=== PATIENT | female | born 1960 | race Caucasian/White ===

== ENCOUNTER 2016-10-26 10:19 | Emergency (ER) | payer MEDICARE, MEDICAID ==
[~2016-10-26 10:19] MED LIST: /LAMO10TA OR; /LOR25TA OR; /ONDA4TA SL; /PANT40TA OR; ACET65TA OR; ALLE25CA OR; AMIT25TA PO; AMLO10TA PO; AMLO10TA2 PO; AMLO25TA PO; AMOX500T2 PO; ATEN100T; AUGM500T34 PO; AUGM875T27 PO; BACL10TA2 PO; BENA25CA2 PO; BISA5TAB7 PO; CARB20TA PO; CELE20TA; CEPH500T PO; CIPR25SS; CIPR25SS OR; CLON0.5T PO; CLOT1CRE71 TOP; COZA25TA8 OR; DARV100T; DEPA500T2 PO; FLAG500T OR; FLON0.054; FLON1SPR; FLUP5TA PO; FURO20TA2 PO; GABA-283 PO; GABA300C3 PO; GABA600T PO; GLUC500T OR; HYDR-4274 PO; Hyzaar; INDO25CA PO; INDO25SU PO; INDO50CA PO; INVE234I IM; KEFL500C7 PO; KLON0.5T; KLON1TAB; LASI20TA OR; LASI20TA PO; LEVA750T PO; LIDO1OIN2 TOP; LISI-538 PO; LITH300C PO; LITH300T2; LITH300T2 PO; LITH600C; LITHOBID PO; MAALSUS18 PO; METF500T PO; METO100T PO; MILKSUS PO; NAPR500T2 PO; NEUR300C PO; NEUR600T PO; NICO14PA TD; NICO2GUM62 PO; NYST50SS SS; OCEA0.654; OLAN15TA PO; OLAN5TAB PO; OLAN7.5T PO; PERC5TAB6 PO; PRED20TA PO; PRIN5TAB PO; PROLIXIN PO; QUET30XR; QUET5TAB PO; REME15TA PO; ROBA500T; ROBA500T PO; ROBA750T; ROBA750T4 PO; SERO200T; SERO50TA PO; SERT-138 PO; TENO100T PO; TIZA4CAP3 PO; TOPA100T8 PO; TOPA50TA7 PO; TRAM100T; TRAM50TA2; TRAZ100T4 PO; TRAZ50TA; TRAZ50TA4 PO; TYLE325T5 PO; Trazadone; VALI2TAB PO; VALI5TAB OR; VIST25CA PO; ZANA4CAP OR; ZANA6CAP PO; ZOLO100T PO; [UNRECOGNIZED DRUG - CODE] PO; bengay cream TOP; hyzaar; prolixin PO
[2016-10-26] MEDS ORDERED: MORPHINE 4 MG/ML 1ML SYRINGE As Ordered ONE (12:24)
[2016-10-26] MEDS ORDERED: diphenhydrAMINE INJ 50MG/ML VIAL (J1200) As Ordered ONE (12:25)
[2016-10-26] MEDS ORDERED: PROMETHAZINE INJ 25 MG/ML VIAL (J2550) As Ordered ONE (12:25)
[2016-10-26] MEDS ORDERED: ASPIRIN 81 MG CHEW TABLET As Ordered ONE (12:25)
--- NOTE | 2016-10-26 12:38 | REP ---
CT Head without contrast HISTORY: Headache COMPARISON: 05/23/2016 There is no intraparenchymal hemorrhage, acute infarct, mass or midline shift. The ventricular system and cortical sulci are dilated consistent with minimal volume loss. There is no extra cerebral collection. There is no fracture. The visualized sinuses are clear. IMPRESSION: Minimal volume loss. Signed by Jaiden Lawson MD 10/26/2016 12:30 P
[2016-10-26 13:16] LABS: BASO % 0.3 % (0.0-1.0); EOS # 0.2 K/mm3 (0.0-0.50); EOS % 2.8 % (0.0-3.0); LARGE UNSTAINED CELL # 0.1 K/mm3 (0.0-0.4); LARGE UNSTAINED CELL % 1.5 % (0.0-4.0); LYMPH # 2.4 K/mm3 (1.5-4.5); LYMPH % 31.9 % (24.0-44.0); MEAN CORPUSCULAR HEMOGLOBIN 29.5 pg (27.0-33.0); MEAN CORPUSCULAR HGB CONC 32.9 g/dl (32.0-36.5); MEAN CORPUSCULAR VOLUME 89.6 fl (80.0-96.0); MONO # 0.4 K/mm3 (0.0-0.8); MONO % 5.5 % (0.0-5.0); NEUTROPHILS # 4.2 K/mm3 (1.8-7.7); PLATELET COUNT, AUTOMATED 200 k/mm3 (150-450); WHITE BLOOD COUNT 7.3 K/mm3 (4.0-10.0)
[2016-10-26 13:49] LABS: ANION GAP 13 MEQ/L (8-16); BLOOD UREA NITROGEN 13 MG/DL (7-18); CARBON DIOXIDE LEVEL 24 MEQ/L (21-32); CHLORIDE LEVEL 103 MEQ/L (98-107); CREATININE FOR GFR 0.93 MG/DL (0.55-1.02); GLOMERULAR FILTRATION RATE > 60.0 (>51); GLUCOSE, FASTING 109 MG/DL (70-105); POTASSIUM SERUM 4.2 MEQ/L (3.5-5.1); SODIUM LEVEL 140 MEQ/L (136-145)
[2016-10-26] MEDS ORDERED: KETOROLAC 30 MG/ML VIAL (J1885) As Ordered ONE (16:03)
--- NOTE | 2016-10-26 17:13 | EDDOCDS ---
Physician Documentation [facility] Name: Suzi Rodriguez Age: 56 yrs Sex: Female : 1960 Arrival Date: 10/26/2016 Time: 10:19 Bed TR7 Private MD: Sigifredo Rowley MD Disposition: 10/26/16 16:59 Discharged to Home/Self Care. Impression: Other chest pain, Headache. - Condition is Stable. - Discharge Instructions: Nonspecific Chest Pain, General Headache Without Cause. - Medication Reconciliation, Local Pharmacy Hours form. - Follow up: Sigifredo Rowley; When: Tomorrow; Reason: Continuance of care. - Problem is new. - Symptoms have improved. Historical: - Allergies: TETANUS TOXOID; - Home Meds: 1. metformin 1,000 mg oral tab 1 tab 2 times per day 2. gabapentin 600 mg oral tab 1 tab twice a day last filled in January 3. fluconazole 150 mg Oral tab 1 tab daily 4. benztropine 1 mg oral tab 2 times per day 5. tizanidine 4 mg oral tab 1 tab three times a day 6. baclofen 10 mg Oral tab 1 tab twice a day as needed 7. ammonium lactate cream apply to feet daily 8. cyclobenzaprine 10 mg Oral tab 1 tab 3 times per day 9. divalproex 500 mg oral TbEC 1 tab 3 times per day 10. lisinopril 20 mg Oral tab 1 tab once daily 11. Chantix Oral as directed 12. risperidone 2 mg oral tab 1 tab 2 times per day 13. chlorthalidone 12.5 mg daily Oral tab .5 tab once daily 14. Spironolactone 12.5 mg daily Oral - PMHx: Bipolar disorder; Chronic Back pain; Depression; Bronchitis; Fibromyalgia; Hypertension; Trigeminal Neuralgia; - PSHx: benign tumor removed left kidney; triple fusion with a titanium merary to neck in 2000; - Social history: Smoking status: Patient uses tobacco products, current every day smoker. No barriers to communication noted, The patient speaks fluent Lao, Speaks appropriately for age. - Family history: Not pertinent. - : Unable to assess if pt is on anticoagulants. Unable to Verify Home Med List with the patient / caregiver. Home medication list is obtained from patients' pharmacy. - Exposure Risk Screening:: None identified. Vital Signs: 10/26 10:20 BP 183 / 78; Pulse 95; Resp 18; Temp 98.7(O); Pulse Ox 97% ; Weight 102.51 kg / 226 lbs ct3 (R); Height 5 ft. 5 in. (165.10 cm) (R); Pain 10/10; 11:33 BP 177 / 92; ms18 13:04 BP 142 / 91; Pulse 90; Resp 18; Pulse Ox 95% ; ms18 13:16 BP 137 / 85 (auto/); mk4 13:23 Pulse 90 MON; Pulse Ox 91% ; mk4 13:30 Pulse 92 MON; Pulse Ox 94% ; ms18 13:31 BP 144 / 86 (auto/); ms18 13:31 Pulse 88 MON; Pulse Ox 93% ; ms18 13:32 Pain 4/10; ms18 13:45 Pulse 92 MON; Pulse Ox 92% ; ms18 13:46 BP 139 / 81 (auto/); ms18 13:56 Pulse 94 MON; Pulse Ox 93% ; ms18 14:01 BP 135 / 79 (auto/); ms18 14:16 BP 133 / 74 (auto/); ms18 14:16 Pulse 92 MON; Pulse Ox 93% ; ms18 14:31 BP 136 / 76 (auto/); ms18 14:33 Pulse 102 MON; Pulse Ox 94% ; ms18 14:46 Pulse 88 MON; Pulse Ox 93% ; ms18 14:46 BP 127 / 66 (auto/); mk4 14:47 Pulse 92 MON; Pulse Ox 94% ; mk4 14:48 Pulse 92 MON; Pulse Ox 94% ; ms18 15:00 Pulse 90 MON; Pulse Ox 94% ; ms18 15:01 BP 126 / 62 (auto/); ms18 15:07 Pulse 92 MON; Pulse Ox 94% ; mk4 15:16 BP 146 / 79 (auto/); ms18 15:31 BP 147 / 78 (auto/); mk4 17:09 BP 132 / 72; Pulse 92; Resp 20; Temp 97.2(O); Pulse Ox 94% on R/A; mk4 10:20 Body Mass Index 37.61 (102.51 kg, 165.10 cm) ct3 MDM: 10:32 ECG WITH READING ER PHYS+CARDIAG ordered. EDMS 12:17 IV Saline Lock ordered. fg 12:17 morphine 4 mg IVP once ordered. fg 12:17 diphenhydrAMINE 25 mg IVP once ordered. fg 12:17 Promethazine 12.5 mg IVP once; dilute and administer 30-60 minutes ordered. fg 12:18 CT Head Without Contrast Ordered. EDMS 12:21 Aspirin Chewable Tablet 324 mg PO once ordered. fg 12:21 Repeat EKG (put time details section) ordered. fg 12:21 Basic Metabolic Profile Ordered. EDMS 12:22 CBC with Diff Ordered. EDMS 12:22 Cardiac Injury Profile Ordered. EDMS 12:22 Troponin Ordered. EDMS 12:33 Repeat EKG (put time details section) complete. lbd 12:34 ECG WITH READING ER PHYS ordered. EDMS 13:26 Troponin: 1530 Ordered. EDMS 14:01 Financial registration complete. lg 15:32 [facility] [place] Payment Agreement was scanned into [employer] and attached to record. lg 15:49 ketorolac 30 mg IVP once ordered. fg Administered Medications: 13:03 Drug: morphine 4 mg [morphine 4 mg/mL intravenous cartridge (1 mL)] Route: IVP; Site: ms18 right hand; 13:32 Follow up: Pain 4/10 Adult; Response: No Adverse Reaction; Pain is decreased ms18 13:03 Drug: diphenhydrAMINE 25 mg [diphenhydramine 50 mg/mL injection solution (0.5 mL)] ms18 Route: IVP; Site: right hand; 13:32 Follow up: Response: No Adverse Reaction; Pain is decreased ms18 13:03 Drug: Promethazine 12.5 mg [promethazine 25 mg/mL injection solution (0.5 mL)] Route: ms18 IVP; Site: right hand; 13:32 Follow up: Response: No Adverse Reaction ms18 13:03 Drug: Aspirin 324 mg [aspirin 81 mg chewable tablet (4 tabs)] Route: PO; ms18 13:32 Follow up: Response: No Adverse Reaction ms18 16:10 Drug: ketorolac 30 mg [ketorolac 30 mg/mL (1 mL) injection solution (1 mL)] Route: IVP; ms18 Site: right hand; Signatures: Dispatcher [email or web address] EDMS Nidia Fuentes RN RN kcs Daly, Linda, Store Merchandiser Unit lbd Beronica Rocha RN RN srm Ganter, LoriLee, Reg Reg lg Carmita Stern RN RN mk4 Deepti Dong RN RN ms18 Bibi Bob MD MD fg The chart was reviewed and I authenticate all verbal orders and agree with the evaluation and treatment provided.Corrections: (The following items were deleted from the chart) 12:23 12:22 TROPONIN+LAB ordered. EDMS EDMS Attachments: 15:32 [facility] [place] Payment Agreement lg MTDD
--- NOTE | 2016-10-26 17:13 | EDDOCDS ---
Nurse's Notes [facility] Name: Suzi Rodriguez Age: 56 yrs Sex: Female : 1960 Arrival Date: 10/26/2016 Time: 10:19 Bed TR7 Private MD: Sigifredo Rowley MD Diagnosis: Other chest pain;Headache Presentation: 10/26 10:23 Presenting complaint: Patient states: severe head and neck pain. some chest pain. head srm and neck pain on and off for weeks. past week worsened. dx with decompression of the head. chest pain mainly at night for past couple of months. today is the only day its been during the day. pain under left breast does not radiate. saw training analyst last week for chest pain. had abnormal EKG. Presenting complaint: Patient states: head feels constricted. This patient has no additional risk factors. Adult Sepsis Screening: The patient does not have new or worsening altered mentation. Patient's respiratory rate is less than 22. Systolic blood pressure is greater than 100. Patient has a qSOFA score of 0- Negative Sepsis Screen. Suicide/Homicide risk assessment- the patient denies having any suicidal and/or homicidal ideations and does not present with any other emotional, behavioral or mental health complaints. Status: Patient is not a ancillary services manager therapy or dependent. Transition of care: patient was not received from another setting of care. 10:23 Acuity: WILFRED Level 3 [facility] 10:23 Method Of Arrival: Walkin/Carried/Asstd srm 10:28 Presenting complaint: Patient states: has been [facility]. [facility] Triage Assessment: 10:28 Headache History: This headache is like all previous headaches. General: Appears in no srm apparent distress, Behavior is appropriate for age, cooperative, flat. Pain: Pain currently is 10 out of 10 on a pain scale. Pain began weeks Also complains of no other associated symptoms. HIV screening NA for this visit Offered previously. Neurological: Level of Consciousness is awake, alert, Oriented to person, place, time. Historical: - Allergies: TETANUS TOXOID; - Home Meds: 1. metformin 1,000 mg oral tab 1 tab 2 times per day 2. gabapentin 600 mg oral tab 1 tab twice a day last filled in January 3. fluconazole 150 mg Oral tab 1 tab daily 4. benztropine 1 mg oral tab 2 times per day 5. tizanidine 4 mg oral tab 1 tab three times a day 6. baclofen 10 mg Oral tab 1 tab twice a day as needed 7. ammonium lactate cream apply to feet daily 8. cyclobenzaprine 10 mg Oral tab 1 tab 3 times per day 9. divalproex 500 mg oral TbEC 1 tab 3 times per day 10. lisinopril 20 mg Oral tab 1 tab once daily 11. Chantix Oral as directed 12. risperidone 2 mg oral tab 1 tab 2 times per day 13. chlorthalidone 12.5 mg daily Oral tab .5 tab once daily 14. Spironolactone 12.5 mg daily Oral - PMHx: Bipolar disorder; Chronic Back pain; Depression; Bronchitis; Fibromyalgia; Hypertension; Trigeminal Neuralgia; - PSHx: benign tumor removed left kidney; triple fusion with a titanium merary to neck in 2000; - Social history: Smoking status: Patient uses tobacco products, current every day smoker. No barriers to communication noted, The patient speaks fluent Japanese, Speaks appropriately for age. - Family history: Not pertinent. - : Unable to assess if pt is on anticoagulants. Unable to Verify Home Med List with the patient / caregiver. Home medication list is obtained from patients' pharmacy. - Exposure Risk Screening:: None identified. Screenin:33 Screening information is obtained from the patient. Fall risk: No risks identified. ms18 Assistance ADL's: requires no assistance with activities of daily living. Abuse/DV Screen: The patient / caregiver reports he/she is: not in a situation that causes fear, pain or injury. Nutritional screening: No deficits noted. Advance Directives: There is no living will. home support is adequate. Assessment: 11:33 General: Appears in no apparent distress, uncomfortable, Behavior is cooperative, flat. ms18 Pain: Location: jaw and head. Neurological: Level of Consciousness is awake, alert, obeys commands, Oriented to person, place, time, Moves all extremities. Gait is steady, Speech is normal, Facial symmetry appears normal. Respiratory: Airway is patent Respiratory effort is even, unlabored. Derm: Skin is pink, warm & dry. 12:57 General: Appears in no apparent distress, uncomfortable, Behavior is appropriate for ms18 age, cooperative. Pain: Pain currently is 8 out of 10 on a pain scale. Pain: Also complains of photophobia. Neurological: Level of Consciousness is awake, alert, obeys commands, Oriented to person, place, time. Respiratory: No deficits noted. Derm: Skin is pink, warm & dry. normal. 13:30 General: Pt resting at this time. Will continue to monitor pt. Pt will have repeat ms18 bloodwork done at 1530. Pt aware of this. Will continue to monitor pt. 14:38 General: Appears in no apparent distress, comfortable, to be sleeping. Pt in no acute ms18 distress. VSS. Will continue to monitor pt. Respiratory: No deficits noted. Derm: Skin is pink, warm & dry. 15:38 General: Appears in no apparent distress, comfortable, Behavior is cooperative. mk4 Respiratory: Airway is patent Respiratory effort is even, unlabored, Respiratory pattern is regular. 17:09 Reassessment: Patient denies pain at this time. Patient states feeling better. Patient mk4 states symptoms have improved. Neurological: Level of Consciousness is awake, alert. Vital Signs: 10:20 BP 183 / 78; Pulse 95; Resp 18; Temp 98.7(O); Pulse Ox 97% ; Weight 102.51 kg (R); ct3 Height 5 ft. 5 in. (165.10 cm) (R); Pain 10/10; 11:33 BP 177 / 92; ms18 13:04 BP 142 / 91; Pulse 90; Resp 18; Pulse Ox 95% ; ms18 13:16 BP 137 / 85 (auto/); mk4 13:23 Pulse 90 MON; Pulse Ox 91% ; mk4 13:30 Pulse 92 MON; Pulse Ox 94% ; ms18 13:31 BP 144 / 86 (auto/); ms18 13:31 Pulse 88 MON; Pulse Ox 93% ; ms18 13:32 Pain 4/10; ms18 13:45 Pulse 92 MON; Pulse Ox 92% ; ms18 13:46 BP 139 / 81 (auto/); ms18 13:56 Pulse 94 MON; Pulse Ox 93% ; ms18 14:01 BP 135 / 79 (auto/); ms18 14:16 BP 133 / 74 (auto/); ms18 14:16 Pulse 92 MON; Pulse Ox 93% ; ms18 14:31 BP 136 / 76 (auto/); ms18 14:33 Pulse 102 MON; Pulse Ox 94% ; ms18 14:46 Pulse 88 MON; Pulse Ox 93% ; ms18 14:46 BP 127 / 66 (auto/); mk4 14:47 Pulse 92 MON; Pulse Ox 94% ; mk4 14:48 Pulse 92 MON; Pulse Ox 94% ; ms18 15:00 Pulse 90 MON; Pulse Ox 94% ; ms18 15:01 BP 126 / 62 (auto/); ms18 15:07 Pulse 92 MON; Pulse Ox 94% ; mk4 15:16 BP 146 / 79 (auto/); ms18 15:31 BP 147 / 78 (auto/); mk4 17:09 BP 132 / 72; Pulse 92; Resp 20; Temp 97.2(O); Pulse Ox 94% on R/A; mk4 10:20 Body Mass Index 37.61 (102.51 kg, 165.10 cm) ct3 Vitals: 10:20 Log In Time: October 26, 2016 at 10:17. ct3 ED Course: 10:20 Patient visited by Barbara English PCA. ct3 10:20 Sigifredo Rowley is Private Physician. ct3 10:20 Patient moved to Waiting ct3 10:22 Patient moved to Pre RCE ct3 10:27 Triage Initiated srm 10:29 Patient moved to 15 srm 10:45 EKG done. (by ED staff). Reviewed by Ezekiel Pino MD. nb2 10:46 Patient visited by Sarah Friedman. nb2 11:30 Deepti Dong,RN is Primary Nurse. ms18 11:33 Patient visited by Deepti Dong RN. ms18 11:33 The patient / caregiver is instructed regarding the plan of care and ED course. Patient ms18 has correct armband on for positive identification. Placed in gown. Bed in low position. Call light in reach. Property :Personal belongings accompany Pt. 12:07 Bibi Bob MD is Attending Physician. fg 12:08 Patient visited by Bibi Bob MD. fg 13:02 Patient visited by Deepti Dong RN. ms18 13:02 Basic Metabolic Profile Sent. ms18 13:10 CBC with Diff Sent. ms18 13:10 Cardiac Injury Profile Sent. ms18 13:10 Troponin Sent. ms18 13:12 CT Head Without Contrast Returned. EDMS 13:31 Patient visited by Deepti Dong,HANNAH. ms18 14:01 Patient visited by Deepti Dong RN. ms18 14:36 Patient visited by Deepti Dong RN. ms18 15:21 Patient visited by Deepti Dong RN. ms18 15:21 Patient visited by Deepti Dong RN. ms18 15:31 Patient name changed from Suzi\S\Maris\S\January\S\ to Suzi\S\M\S\January. EDMS 15:32 [facility] [place] Agreement was scanned into [address] and attached to record. lg 15:43 Patient visited by Deepti Dong RN. ms18 15:43 Troponin: 1530 Sent. ms18 16:10 Patient visited by Deepti Dong RN. ms18 16:58 Patient visited by Carmita Stern RN. mk4 16:59 Sigifredo Rolwey is Referral Physician. fg 17:08 Patient moved to [place] [id number] Administered Medications: 13:03 Drug: morphine 4 mg [morphine 4 mg/mL intravenous cartridge (1 mL)] Route: IVP; Site: ms18 right hand; 13:32 Follow up: Pain 4/10 Adult; Response: No Adverse Reaction; Pain is decreased ms18 13:03 Drug: diphenhydrAMINE 25 mg [diphenhydramine 50 mg/mL injection solution (0.5 mL)] ms18 Route: IVP; Site: right hand; 13:32 Follow up: Response: No Adverse Reaction; Pain is decreased ms18 13:03 Drug: Promethazine 12.5 mg [promethazine 25 mg/mL injection solution (0.5 mL)] Route: ms18 IVP; Site: right hand; 13:32 Follow up: Response: No Adverse Reaction ms18 13:03 Drug: Aspirin 324 mg [aspirin 81 mg chewable tablet (4 tabs)] Route: PO; ms18 13:32 Follow up: Response: No Adverse Reaction ms18 16:10 Drug: ketorolac 30 mg [ketorolac 30 mg/mL (1 mL) injection solution (1 mL)] Route: IVP; ms18 Site: right hand; Order Results: Lab Order: Basic Metabolic Profile; SPEC'M 10/26/16 13:05 Test: GLUCOSE, FASTING; Value: 109; Range: 70-105; Abnormal: Above high normal; Units: MG/DL; Status: F Test: BLOOD UREA NITROGEN; Value: 13; Range: 7-18; Units: MG/DL; Status: F Test: CREATININE FOR GFR; Value: 0.93; Range: 0.55-1.02; Units: MG/DL; Status: F Test: GLOMERULAR FILTRATION RATE; Value: > 60.0; Range: >51; Status: F Test: SODIUM LEVEL; Value: 140; Range: 136-145; Units: MEQ/L; Status: F Test: POTASSIUM SERUM; Value: 4.2; Range: 3.5-5.1; Units: MEQ/L; Status: F Test: CHLORIDE LEVEL; Value: 103; Range: 98-107; Units: MEQ/L; Status: F Test: CARBON DIOXIDE LEVEL; Value: 24; Range: 21-32; Units: MEQ/L; Status: F Test: ANION GAP; Value: 13; Range: 8-16; Units: MEQ/L; Status: F Test: CALCIUM LEVEL; Value: 10.0; Range: 8.5-10.1; Units: MG/DL; Status: F Test Note: ; Units are mL/min/1.73 m2 Chronic Kidney Disease Staging per NKF: Stage I & II GFR >=60 Normal to Mildly Decreased Stage III GFR 30-59 Moderately Decreased Stage IV GFR 15-29 Severely Decreased Stage V GFR <15 Very Little GFR Left ESRD GFR <15 on [employer] Lab Order: CBC with Diff; SPEC'M 10/26/16 13:05 Test: WHITE BLOOD COUNT; Value: 7.3; Range: 4.0-10.0; Units: K/mm3; Status: F Test: RED BLOOD COUNT; Value: 4.67; Range: 4.00-5.40; Units: M/mm3; Status: F Test: HEMOGLOBIN; Value: 13.8; Range: 12.0-16.0; Units: g/dl; Status: F Test: HEMATOCRIT; Value: 41.8; Range: 36.0-47.0; Units: %; Status: F Test: MEAN CORPUSCULAR VOLUME; Value: 89.6; Range: 80.0-96.0; Units: fl; Status: F Test: MEAN CORPUSCULAR HEMOGLOBIN; Value: 29.5; Range: 27.0-33.0; Units: pg; Status: F Test: MEAN CORPUSCULAR HGB CONC; Value: 32.9; Range: 32.0-36.5; Units: g/dl; Status: F Test: RED CELL DISTRIBUTION WIDTH; Value: 14.0; Range: 11.5-14.5; Units: %; Status: F Test: PLATELET COUNT, AUTOMATED; Value: 200; Range: 150-450; Units: k/mm3; Status: F Test: NEUTROPHILS %; Value: 58.0; Range: 36.0-66.0; Units: %; Status: F Test: LYMPH %; Value: 31.9; Range: 24.0-44.0; Units: %; Status: F Test: MONO %; Value: 5.5; Range: 0.0-5.0; Abnormal: Above high normal; Units: %; Status: F Test: EOS %; Value: 2.8; Range: 0.0-3.0; Units: %; Status: F Test: BASO %; Value: 0.3; Range: 0.0-1.0; Units: %; Status: F Test: LARGE UNSTAINED CELL %; Value: 1.5; Range: 0.0-4.0; Units: %; Status: F Test: NEUTROPHILS #; Value: 4.2; Range: 1.8-7.7; Units: K/mm3; Status: F Test: LYMPH #; Value: 2.4; Range: 1.5-4.5; Units: K/mm3; Status: F Test: MONO #; Value: 0.4; Range: 0.0-0.8; Units: K/mm3; Status: F Test: EOS #; Value: 0.2; Range: 0.0-0.50; Units: K/mm3; Status: F Test: BASO #; Value: 0.0; Range: 0.0-0.2; Units: K/mm3; Status: F Test: LARGE UNSTAINED CELL #; Value: 0.1; Range: 0.0-0.4; Units: K/mm3; Status: F Lab Order: Cardiac Injury Profile; SPEC'M 10/26/16 13:05 Test: CPK CREATINE PHOSPHOKINASE; Value: 74; Range: 26-192; Units: U/L; Status: F Test: CK-MB VALUE MASS; Value: 1.4; Range: 0.0-3.6; Units: NG/ML; Status: F Test: MB/CK RELATIVE INDEX; Value: 1.89; Range: < OR =4; Status: F Test Note: ; DIAGNOSIS CRITERIA MMB ng/ml Relative Index (RI) NON-AMI < or = 5 N/A [place] > 5 < or = 4 AMI > 5 > 4 Lab Order: Troponin; SPEC'M 10/26/16 13:05 Test: TROPONIN I; Value: < 0.02; Range: < 0.10; Units: NG/ML; Status: F Test Note: ; Troponin I Reference Interval for [employer] [place] LOCI: 99th Percentile= 0.00-0.045 ng/ml Risk Stratification: <= 0.10 ng/ml Decreased Risk for Adverse Clinical Events. 0.10-1.50 ng/ml Increased Risk for Adverse Clinical Events. Evaluation of additional criterion and/or repeat testing in 2-6 hours is suggested to rule out myocardial damage. >= 1.50 ng/ml Indicative of Myocardial Injury. Lab Order: Troponin: 1530; SPEC'M 10/26/16 15:41 Test: TROPONIN I; Value: < 0.02; Range: < 0.10; Units: NG/ML; Status: F Test Note: ; Troponin I Reference Interval for [employer] LOCI: 99th Percentile= 0.00-0.045 ng/ml Risk Stratification: <= 0.10 ng/ml Decreased Risk for Adverse Clinical Events. 0.10-1.50 ng/ml Increased Risk for Adverse Clinical Events. Evaluation of additional criterion and/or repeat testing in 2-6 hours is suggested to rule out myocardial damage. >= 1.50 ng/ml Indicative of Myocardial Injury. Radiology Order: CT Head Without Contrast Test: CT Head Without Contrast REASON FOR EXAMINATION: headache; CT Head without contrast; ; HISTORY: Headache; ; COMPARISON: 05/23/2016; ; There is no intraparenchymal hemorrhage, acute infarct, mass or midline shift.; The ventricular system and cortical sulci are dilated consistent with minimal; volume loss. There is no extra cerebral collection. There is no fracture. The; visualized sinuses are clear.; ; IMPRESSION: Minimal volume loss.; ; ; ; ; Signed by; Jaiden Lawson MD 10/26/2016 12:30 P; Outcome: 16:59 Discharge ordered by Provider. fg 17:12 Patient left the ED. mk4 Signatures: Dispatcher [employer] Nidia Hayes, RN RN Beronica Gracia RN RN [facility] Ghassan Hobson, Reg Reg lg English, Barbara, MANNEQUIN SANDER AND FINISHER [employer] SANDER [employer] FINISHER ct3 Carmita Stern RN RN mkDeepti Sanders RN RN ms18 Bibi Bob MD MD fg Baart, Nicole nb MTDD
--- NOTE | 2016-10-27 08:08 | ECGEPIP ---
Stationary ECG Study [facility] - ED Test Date: 2016-10-26 Pat Name: ANISH OHARA Department: Room: - Gender: F Finance Associate: cadence : 1960 Requested By: Ezekiel Stiles Order Number: [id number] Reading MD: Ezekiel Pino Measurements Intervals [place] Rate: 86 P: 32 AL: 203 QRS: -50 QRSD: 100 T: 47 QT: 369 QTc: 443 Interpretive Statements SINUS RHYTHM POSSIBLE LEFT ATRIAL ENLARGEMENT POSSIBLE ANTERIOR MYOCARDIAL INFARCTION, OF INDETERMINATE AGE PROBABLE INFERIOR MYOCARDIAL INFARCTION, OF INDETERMINATE AGE SIMILAR TO 02/24/16 Electronically Signed On 10-27-2016 8:08:24 EST by Ezekiel Pino
--- NOTE | 2016-10-27 08:44 | ECGEPIP ---
Stationary ECG Study [facility] - ED Test Date: 2016-10-26 Pat Name: ANISH OHARA Department: Room: - Gender: F Registered Pharmacy Technician: cadence : 1960 Requested By: VANCE Cortez Order Number: [id number] Reading MD: Ezekiel Pino Measurements Intervals [place] Rate: 86 P: 33 WI: 203 QRS: -56 QRSD: 95 T: 46 QT: 364 QTc: 437 Interpretive Statements SINUS RHYTHM POSSIBLE LEFT ATRIAL ENLARGEMENT LAD ANTERIOR MYOCARDIAL INFARCTION, OF INDETERMINATE AGE INFERIOR MYOCARDIAL INFARCTION, PROBABLY OLD SIMILAR TO 10/26/16 1045h Electronically Signed On 10-27-2016 8:44:28 EST by Ezekiel Pino
--- NOTE | 2016-10-28 18:13 | EDDOCDS ---
Nurse's Notes [facility] Name: Anish Ohara Age: 56 yrs Sex: Female : 1960 Arrival Date: 10/26/2016 Time: 10:19 Bed TR7 Private MD: Sigifredo Rowley MD Diagnosis: Other chest pain;Headache Presentation: 10/26 10:23 Presenting complaint: Patient states: severe head and neck pain. some chest pain. head srm and neck pain on and off for weeks. past week worsened. dx with decompression of the head. chest pain mainly at night for past couple of months. today is the only day its been during the day. pain under left breast does not radiate. 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 had abnormal EKG. Presenting complaint: Patient states: head feels constricted. This patient has no additional risk factors. Adult Sepsis Screening: The patient does not have new or worsening altered mentation. Patient's respiratory rate is less than 22. Systolic blood pressure is greater than 100. Patient has a qSOFA score of 0- Negative Sepsis Screen. Suicide/Homicide risk assessment- the patient denies having any suicidal and/or homicidal ideations and does not present with any other emotional, behavioral or mental health complaints. Status: Patient is not a chief of service or dependent. Transition of care: patient was not received from another setting of care. 10:23 Acuity: WILFRED Level 3 [facility] 10:23 Method Of Arrival: Walkin/Carried/Asstd srm 10:28 Presenting complaint: Patient states: has been [facility]. [facility] Triage Assessment: 10:28 Headache History: This headache is like all previous headaches. General: Appears in no srm apparent distress, Behavior is appropriate for age, cooperative, flat. Pain: Pain currently is 10 out of 10 on a pain scale. Pain began weeks Also complains of no other associated symptoms. HIV screening NA for this visit Offered previously. Neurological: Level of Consciousness is awake, alert, Oriented to person, place, time. Historical: - Allergies: TETANUS TOXOID; - Home Meds: 1. metformin 1,000 mg oral tab 1 tab 2 times per day 2. gabapentin 600 mg oral tab 1 tab twice a day last filled in January 3. fluconazole 150 mg Oral tab 1 tab daily 4. benztropine 1 mg oral tab 2 times per day 5. tizanidine 4 mg oral tab 1 tab three times a day 6. baclofen 10 mg Oral tab 1 tab twice a day as needed 7. ammonium lactate cream apply to feet daily 8. cyclobenzaprine 10 mg Oral tab 1 tab 3 times per day 9. divalproex 500 mg oral TbEC 1 tab 3 times per day 10. lisinopril 20 mg Oral tab 1 tab once daily 11. Chantix Oral as directed 12. risperidone 2 mg oral tab 1 tab 2 times per day 13. chlorthalidone 12.5 mg daily Oral tab .5 tab once daily 14. Spironolactone 12.5 mg daily Oral - PMHx: Bipolar disorder; Chronic Back pain; Depression; Bronchitis; Fibromyalgia; Hypertension; Trigeminal Neuralgia; - PSHx: benign tumor removed left kidney; triple fusion with a titanium merary to neck in 2000; - Social history: Smoking status: Patient uses tobacco products, current every day smoker. No barriers to communication noted, The patient speaks fluent [place], Speaks appropriately for age. - Family history: Not pertinent. - : Unable to assess if pt is on anticoagulants. Unable to Verify Home Med List with the patient / caregiver. Home medication list is obtained from patients' pharmacy. - Exposure Risk Screening:: None identified. Screenin:33 Screening information is obtained from the patient. Fall risk: No risks identified. ms18 Assistance ADL's: requires no assistance with activities of daily living. Abuse/DV Screen: The patient / caregiver reports he/she is: not in a situation that causes fear, pain or injury. Nutritional screening: No deficits noted. Advance Directives: There is no living will. home support is adequate. Assessment: 11:33 General: Appears in no apparent distress, uncomfortable, Behavior is cooperative, flat. ms18 Pain: Location: jaw and head. Neurological: Level of Consciousness is awake, alert, obeys commands, Oriented to person, place, time, Moves all extremities. Gait is steady, Speech is normal, Facial symmetry appears normal. Respiratory: Airway is patent Respiratory effort is even, unlabored. Derm: Skin is pink, warm & dry. 12:57 General: Appears in no apparent distress, uncomfortable, Behavior is appropriate for ms18 age, cooperative. Pain: Pain currently is 8 out of 10 on a pain scale. Pain: Also complains of photophobia. Neurological: Level of Consciousness is awake, alert, obeys commands, Oriented to person, place, time. Respiratory: No deficits noted. Derm: Skin is pink, warm & dry. normal. 13:30 General: Pt resting at this time. Will continue to monitor pt. Pt will have repeat ms18 bloodwork done at 1530. Pt aware of this. Will continue to monitor pt. 14:38 General: Appears in no apparent distress, comfortable, to be sleeping. Pt in no acute ms18 distress. VSS. Will continue to monitor pt. Respiratory: No deficits noted. Derm: Skin is pink, warm & dry. 15:38 General: Appears in no apparent distress, comfortable, Behavior is cooperative. mk4 Respiratory: Airway is patent Respiratory effort is even, unlabored, Respiratory pattern is regular. 17:09 Reassessment: Patient denies pain at this time. Patient states feeling better. Patient mk4 states symptoms have improved. Neurological: Level of Consciousness is awake, alert. Vital Signs: 10:20 BP 183 / 78; Pulse 95; Resp 18; Temp 98.7(O); Pulse Ox 97% ; Weight 102.51 kg (R); ct3 Height 5 ft. 5 in. (165.10 cm) (R); Pain 10/10; 11:33 BP 177 / 92; ms18 13:04 BP 142 / 91; Pulse 90; Resp 18; Pulse Ox 95% ; ms18 13:16 BP 137 / 85 (auto/); mk4 13:23 Pulse 90 MON; Pulse Ox 91% ; mk4 13:30 Pulse 92 MON; Pulse Ox 94% ; ms18 13:31 BP 144 / 86 (auto/); ms18 13:31 Pulse 88 MON; Pulse Ox 93% ; ms18 13:32 Pain 4/10; ms18 13:45 Pulse 92 MON; Pulse Ox 92% ; ms18 13:46 BP 139 / 81 (auto/); ms18 13:56 Pulse 94 MON; Pulse Ox 93% ; ms18 14:01 BP 135 / 79 (auto/); ms18 14:16 BP 133 / 74 (auto/); ms18 14:16 Pulse 92 MON; Pulse Ox 93% ; ms18 14:31 BP 136 / 76 (auto/); ms18 14:33 Pulse 102 MON; Pulse Ox 94% ; ms18 14:46 Pulse 88 MON; Pulse Ox 93% ; ms18 14:46 BP 127 / 66 (auto/); mk4 14:47 Pulse 92 MON; Pulse Ox 94% ; mk4 14:48 Pulse 92 MON; Pulse Ox 94% ; ms18 15:00 Pulse 90 MON; Pulse Ox 94% ; ms18 15:01 BP 126 / 62 (auto/); ms18 15:07 Pulse 92 MON; Pulse Ox 94% ; mk4 15:16 BP 146 / 79 (auto/); ms18 15:31 BP 147 / 78 (auto/); mk4 17:09 BP 132 / 72; Pulse 92; Resp 20; Temp 97.2(O); Pulse Ox 94% on R/A; mk4 10:20 Body Mass Index 37.61 (102.51 kg, 165.10 cm) ct3 Vitals: 10:20 Log In Time: October 26, 2016 at 10:17. ct3 ED Course: 10:20 Patient visited by Barbara English PCA. ct3 10:20 Sigifredo Rowley is Private Physician. ct3 10:20 Patient moved to Waiting ct3 10:22 Patient moved to Pre RCE ct3 10:27 Triage Initiated srm 10:29 Patient moved to 15 srm 10:45 EKG done. (by ED staff). Reviewed by Ezekiel Pino MD. nb2 10:46 Patient visited by Sarah Friedman. nb2 11:30 Deepti Dong,RN is Primary Nurse. ms18 11:33 Patient visited by Deepti Dong RN. ms18 11:33 The patient / caregiver is instructed regarding the plan of care and ED course. Patient ms18 has correct armband on for positive identification. Placed in gown. Bed in low position. Call light in reach. Property :Personal belongings accompany Pt. 12:07 Bibi Bob MD is Attending Physician. fg 12:08 Patient visited by Bibi Bob MD. fg 13:02 Patient visited by Deepti Dong RN. ms18 13:02 Basic Metabolic Profile Sent. ms18 13:10 CBC with Diff Sent. ms18 13:10 Cardiac Injury Profile Sent. ms18 13:10 Troponin Sent. ms18 13:12 CT Head Without Contrast Returned. EDMS 13:31 Patient visited by Deepti Dong,HANNAH. ms18 14:01 Patient visited by Deepti Dong RN. ms18 14:36 Patient visited by Deepti Dong RN. ms18 15:21 Patient visited by Deepti Dong RN. ms18 15:21 Patient visited by Deepti Dong RN. ms18 15:31 Patient name changed from Anish\S\Maris\S\January\S\ to Anish\S\M\S\January. EDMS 15:32 [place] [place] was [place] into [employer] and attached to record. lg 15:43 Patient visited by Deepti Dong RN. ms18 15:43 Troponin: 1530 Sent. ms18 16:10 Patient visited by Deepti Dong RN. ms18 16:58 Patient visited by Carmita Stern RN. mk4 16:59 Sigifredo Rowley is Referral Physician. fg 17:08 Patient moved to [place] [id number] 10/27 08:15 EKG-ADULT Returned. EDMS 08:52 ECG WITH READING ER PHYS Returned. EDMS 12:10 T-Sheet-- Draft Copy was scanned into [employer] and attached to record. gb 12:10 ECG/EKG was scanned into [employer] and attached to record. gb Administered Medications: 10/26 13:03 Drug: morphine 4 mg [morphine 4 mg/mL intravenous cartridge (1 mL)] Route: IVP; Site: ms18 right hand; 13:32 Follow up: Pain 4/10 Adult; Response: No Adverse Reaction; Pain is decreased ms18 13:03 Drug: diphenhydrAMINE 25 mg [diphenhydramine 50 mg/mL injection solution (0.5 mL)] ms18 Route: IVP; Site: right hand; 13:32 Follow up: Response: No Adverse Reaction; Pain is decreased ms18 13:03 Drug: Promethazine 12.5 mg [promethazine 25 mg/mL injection solution (0.5 mL)] Route: ms18 IVP; Site: right hand; 13:32 Follow up: Response: No Adverse Reaction ms18 13:03 Drug: Aspirin 324 mg [aspirin 81 mg chewable tablet (4 tabs)] Route: PO; ms18 13:32 Follow up: Response: No Adverse Reaction ms18 16:10 Drug: ketorolac 30 mg [ketorolac 30 mg/mL (1 mL) injection solution (1 mL)] Route: IVP; ms18 Site: right hand; Order Results: Lab Order: Basic Metabolic Profile; SPEC'M 10/26/16 13:05 Test: GLUCOSE, FASTING; Value: 109; Range: 70-105; Abnormal: Above high normal; Units: MG/DL; Status: F Test: BLOOD UREA NITROGEN; Value: 13; Range: 7-18; Units: MG/DL; Status: F Test: CREATININE FOR GFR; Value: 0.93; Range: 0.55-1.02; Units: MG/DL; Status: F Test: GLOMERULAR FILTRATION RATE; Value: > 60.0; Range: >51; Status: F Test: SODIUM LEVEL; Value: 140; Range: 136-145; Units: MEQ/L; Status: F Test: POTASSIUM SERUM; Value: 4.2; Range: 3.5-5.1; Units: MEQ/L; Status: F Test: CHLORIDE LEVEL; Value: 103; Range: 98-107; Units: MEQ/L; Status: F Test: CARBON DIOXIDE LEVEL; Value: 24; Range: 21-32; Units: MEQ/L; Status: F Test: ANION GAP; Value: 13; Range: 8-16; Units: MEQ/L; Status: F Test: CALCIUM LEVEL; Value: 10.0; Range: 8.5-10.1; Units: MG/DL; Status: F Test Note: ; Units are mL/min/1.73 m2 Chronic Kidney Disease Staging per NKF: Stage I & II GFR >=60 Normal to Mildly Decreased Stage III GFR 30-59 Moderately Decreased Stage IV GFR 15-29 Severely Decreased Stage V GFR <15 Very Little GFR Left ESRD GFR <15 on LOGISTICIAN Lab Order: CBC with Diff; SPEC'M 10/26/16 13:05 Test: WHITE BLOOD COUNT; Value: 7.3; Range: 4.0-10.0; Units: K/mm3; Status: F Test: RED BLOOD COUNT; Value: 4.67; Range: 4.00-5.40; Units: M/mm3; Status: F Test: HEMOGLOBIN; Value: 13.8; Range: 12.0-16.0; Units: g/dl; Status: F Test: HEMATOCRIT; Value: 41.8; Range: 36.0-47.0; Units: %; Status: F Test: MEAN CORPUSCULAR VOLUME; Value: 89.6; Range: 80.0-96.0; Units: fl; Status: F Test: MEAN CORPUSCULAR HEMOGLOBIN; Value: 29.5; Range: 27.0-33.0; Units: pg; Status: F Test: MEAN CORPUSCULAR HGB CONC; Value: 32.9; Range: 32.0-36.5; Units: g/dl; Status: F Test: RED CELL DISTRIBUTION WIDTH; Value: 14.0; Range: 11.5-14.5; Units: %; Status: F Test: PLATELET COUNT, AUTOMATED; Value: 200; Range: 150-450; Units: k/mm3; Status: F Test: NEUTROPHILS %; Value: 58.0; Range: 36.0-66.0; Units: %; Status: F Test: LYMPH %; Value: 31.9; Range: 24.0-44.0; Units: %; Status: F Test: MONO %; Value: 5.5; Range: 0.0-5.0; Abnormal: Above high normal; Units: %; Status: F Test: EOS %; Value: 2.8; Range: 0.0-3.0; Units: %; Status: F Test: BASO %; Value: 0.3; Range: 0.0-1.0; Units: %; Status: F Test: LARGE UNSTAINED CELL %; Value: 1.5; Range: 0.0-4.0; Units: %; Status: F Test: NEUTROPHILS #; Value: 4.2; Range: 1.8-7.7; Units: K/mm3; Status: F Test: LYMPH #; Value: 2.4; Range: 1.5-4.5; Units: K/mm3; Status: F Test: MONO #; Value: 0.4; Range: 0.0-0.8; Units: K/mm3; Status: F Test: EOS #; Value: 0.2; Range: 0.0-0.50; Units: K/mm3; Status: F Test: BASO #; Value: 0.0; Range: 0.0-0.2; Units: K/mm3; Status: F Test: LARGE UNSTAINED CELL #; Value: 0.1; Range: 0.0-0.4; Units: K/mm3; Status: F Lab Order: Cardiac Injury Profile; [facility] 10/26/16 13:05 Test: CPK CREATINE PHOSPHOKINASE; Value: 74; Range: 26-192; Units: U/L; Status: F Test: CK-MB VALUE MASS; Value: 1.4; Range: 0.0-3.6; Units: NG/ML; Status: F Test: MB/CK RELATIVE INDEX; Value: 1.89; Range: < OR =4; Status: F Test Note: ; DIAGNOSIS CRITERIA MMB ng/ml Relative Index (RI) NON-AMI < or = 5 N/A [place] > 5 < or = 4 AMI > 5 > 4 Lab Order: Troponin; [facility] 10/26/16 13:05 Test: TROPONIN I; Value: < 0.02; Range: < 0.10; Units: NG/ML; Status: F Test Note: ; Troponin I Reference Interval for [employer] LOCI: 99th Percentile= 0.00-0.045 ng/ml Risk Stratification: <= 0.10 ng/ml Decreased Risk for Adverse Clinical Events. 0.10-1.50 ng/ml Increased Risk for Adverse Clinical Events. Evaluation of additional criterion and/or repeat testing in 2-6 hours is suggested to rule out myocardial damage. >= 1.50 ng/ml Indicative of Myocardial Injury. Lab Order: Troponin: 1530; [facility] 10/26/16 15:41 Test: TROPONIN I; Value: < 0.02; Range: < 0.10; Units: NG/ML; Status: F Test Note: ; Troponin I Reference Interval for [employer] LOCI: 99th Percentile= 0.00-0.045 ng/ml Risk Stratification: <= 0.10 ng/ml Decreased Risk for Adverse Clinical Events. 0.10-1.50 ng/ml Increased Risk for Adverse Clinical Events. Evaluation of additional criterion and/or repeat testing in 2-6 hours is suggested to rule out myocardial damage. >= 1.50 ng/ml Indicative of Myocardial Injury. 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; : 1960 Requested By: Ezekiel Stiles; Order Number: [id number] Reading MD: Ezekiel Pino; Measurements; Intervals [place]; Rate: 86 P: 32; TN: 203 QRS: -50; QRSD: 100 T: 47; QT: 369; QTc: 443; Interpretive Statements; SINUS RHYTHM; POSSIBLE LEFT ATRIAL ENLARGEMENT; POSSIBLE ANTERIOR MYOCARDIAL INFARCTION, OF INDETERMINATE AGE; PROBABLE INFERIOR MYOCARDIAL INFARCTION, OF INDETERMINATE AGE; SIMILAR TO 02/24/16; Electronically Signed On 10-27-2016 8:08:24 EST by Ezekiel Pino; Radiology Order: CT Head Without Contrast Test: CT Head Without Contrast REASON FOR EXAMINATION: headache; CT Head without contrast; ; HISTORY: Headache; ; COMPARISON: 05/23/2016; ; There is no intraparenchymal hemorrhage, acute infarct, mass or midline shift.; The ventricular system and cortical sulci are dilated consistent with minimal; volume loss. There is no extra cerebral collection. There is no fracture. 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 fg 17:12 Patient left the ED. mk4 Signatures: Dispatcher [employer] Nidia Hayes, RN RN [facility] Beronica Rocha RN RN [facility] Bo, Teresa, Reg Reg gb Ghassan Hobson, Reg Reg lg English, Barbara, APARTMENT GROUNDSKEEPER APARTMENT GROUNDSKEEPER ct3 Carmita Stern RN RN Deepti Trejo RN RN ms18 Bibi Bob MD MD fg Baart, Nicole nb Chart Complete MTDD
--- NOTE | 2016-10-28 18:13 | EDDOCDS ---
Physician Documentation [facility] Name: Suzi Rodriguez Age: 56 yrs Sex: Female : 1960 Arrival Date: 10/26/2016 Time: 10:19 Bed TR7 Private MD: Sigifredo Rowley MD Disposition: 10/26/16 16:59 Discharged to Home/Self Care. Impression: Other chest pain, Headache. - Condition is Stable. - Discharge Instructions: Nonspecific Chest Pain, General Headache Without Cause. - Medication Reconciliation, Local Pharmacy Hours form. - Follow up: Sigifredo Rowley; When: Tomorrow; Reason: Continuance of care. - Problem is new. - Symptoms have improved. Historical: - Allergies: TETANUS TOXOID; - Home Meds: 1. metformin 1,000 mg oral tab 1 tab 2 times per day 2. gabapentin 600 mg oral tab 1 tab twice a day last filled in January 3. fluconazole 150 mg Oral tab 1 tab daily 4. benztropine 1 mg oral tab 2 times per day 5. tizanidine 4 mg oral tab 1 tab three times a day 6. baclofen 10 mg Oral tab 1 tab twice a day as needed 7. ammonium lactate cream apply to feet daily 8. cyclobenzaprine 10 mg Oral tab 1 tab 3 times per day 9. divalproex 500 mg oral TbEC 1 tab 3 times per day 10. lisinopril 20 mg Oral tab 1 tab once daily 11. Chantix Oral as directed 12. risperidone 2 mg oral tab 1 tab 2 times per day 13. chlorthalidone 12.5 mg daily Oral tab .5 tab once daily 14. Spironolactone 12.5 mg daily Oral - PMHx: Bipolar disorder; Chronic Back pain; Depression; Bronchitis; Fibromyalgia; Hypertension; Trigeminal Neuralgia; - PSHx: benign tumor removed left kidney; triple fusion with a titanium merary to neck in 2000; - Social history: Smoking status: Patient uses tobacco products, current every day smoker. No barriers to communication noted, The patient speaks fluent [place], Speaks appropriately for age. - Family history: Not pertinent. - : Unable to assess if pt is on anticoagulants. Unable to Verify Home Med List with the patient / caregiver. Home medication list is obtained from patients' pharmacy. - Exposure Risk Screening:: None identified. Vital Signs: 10/26 10:20 BP 183 / 78; Pulse 95; Resp 18; Temp 98.7(O); Pulse Ox 97% ; Weight 102.51 kg / 226 lbs ct3 (R); Height 5 ft. 5 in. (165.10 cm) (R); Pain 10/10; 11:33 BP 177 / 92; ms18 13:04 BP 142 / 91; Pulse 90; Resp 18; Pulse Ox 95% ; ms18 13:16 BP 137 / 85 (auto/); mk4 13:23 Pulse 90 MON; Pulse Ox 91% ; mk4 13:30 Pulse 92 MON; Pulse Ox 94% ; ms18 13:31 BP 144 / 86 (auto/); ms18 13:31 Pulse 88 MON; Pulse Ox 93% ; ms18 13:32 Pain 4/10; ms18 13:45 Pulse 92 MON; Pulse Ox 92% ; ms18 13:46 BP 139 / 81 (auto/); ms18 13:56 Pulse 94 MON; Pulse Ox 93% ; ms18 14:01 BP 135 / 79 (auto/); ms18 14:16 BP 133 / 74 (auto/); ms18 14:16 Pulse 92 MON; Pulse Ox 93% ; ms18 14:31 BP 136 / 76 (auto/); ms18 14:33 Pulse 102 MON; Pulse Ox 94% ; ms18 14:46 Pulse 88 MON; Pulse Ox 93% ; ms18 14:46 BP 127 / 66 (auto/); mk4 14:47 Pulse 92 MON; Pulse Ox 94% ; mk4 14:48 Pulse 92 MON; Pulse Ox 94% ; ms18 15:00 Pulse 90 MON; Pulse Ox 94% ; ms18 15:01 BP 126 / 62 (auto/); ms18 15:07 Pulse 92 MON; Pulse Ox 94% ; mk4 15:16 BP 146 / 79 (auto/); ms18 15:31 BP 147 / 78 (auto/); mk4 17:09 BP 132 / 72; Pulse 92; Resp 20; Temp 97.2(O); Pulse Ox 94% on R/A; mk4 10:20 Body Mass Index 37.61 (102.51 kg, 165.10 cm) ct3 MDM: 10:32 ECG WITH READING ER PHYS+CARDIAG ordered. EDMS 12:17 IV Saline Lock ordered. fg 12:17 morphine 4 mg IVP once ordered. fg 12:17 diphenhydrAMINE 25 mg IVP once ordered. fg 12:17 Promethazine 12.5 mg IVP once; dilute and administer 30-60 minutes ordered. fg 12:18 CT Head Without Contrast Ordered. EDMS 12:21 Aspirin Chewable Tablet 324 mg PO once ordered. fg 12:21 Repeat EKG (put time details section) ordered. fg 12:21 Basic Metabolic Profile Ordered. EDMS 12:22 CBC with Diff Ordered. EDMS 12:22 Cardiac Injury Profile Ordered. EDMS 12:22 Troponin Ordered. EDMS 12:33 Repeat EKG (put time details section) complete. lbd 12:34 ECG WITH READING ER PHYS ordered. EDMS 13:26 Troponin: 1530 Ordered. EDMS 14:01 Financial registration complete. lg 15:32 [facility] [place] Agreement was scanned into [employer] and attached to record. lg 15:49 ketorolac 30 mg IVP once ordered. fg 10/27 12:10 T-Sheet-- Draft Copy was scanned into [employer] and attached to record. gb 12:10 ECG/EKG was scanned into [employer] and attached to record. gb Administered Medications: 10/26 13:03 Drug: morphine 4 mg [morphine 4 mg/mL intravenous cartridge (1 mL)] Route: IVP; Site: ms18 right hand; 13:32 Follow up: Pain 4/10 Adult; Response: No Adverse Reaction; Pain is decreased ms18 13:03 Drug: diphenhydrAMINE 25 mg [diphenhydramine 50 mg/mL injection solution (0.5 mL)] ms18 Route: IVP; Site: right hand; 13:32 Follow up: Response: No Adverse Reaction; Pain is decreased ms18 13:03 Drug: Promethazine 12.5 mg [promethazine 25 mg/mL injection solution (0.5 mL)] Route: ms18 IVP; Site: right hand; 13:32 Follow up: Response: No Adverse Reaction ms18 13:03 Drug: Aspirin 324 mg [aspirin 81 mg chewable tablet (4 tabs)] Route: PO; ms18 13:32 Follow up: Response: No Adverse Reaction ms18 16:10 Drug: ketorolac 30 mg [ketorolac 30 mg/mL (1 mL) injection solution (1 mL)] Route: IVP; ms18 Site: right hand; Signatures: Dispatcher [employer] EDMS Nidia Fuentes, RN RN rajendra Newman Mami, Box Stacker Unit lbd Beronica Rocha RN RN [facility] Bo Teresa, Reg Reg gb Jazlyn Ghassan, Reg Reg lg Carmita Stern RN RN Deepti Trejo RN RN ms18 Bibi Bob MD MD fg The chart was reviewed and I authenticate all verbal orders and agree with the evaluation and treatment provided.Corrections: (The following items were deleted from the chart) 12: 12:22 TROPONIN+LAB ordered. EDMS EDMS Attachments: 15:32 [facility] [place] Payment Agreement lg 10/27 12:10 T-Sheet-- Draft Copy gb 12:10 ECG/EKG Chart Complete MTDD
--- NOTE | 2016-10-28 18:13 | EDDOCDS ---
Physician Documentation [facility] Name: Suzi Rodriguez Age: 56 yrs Sex: Female : 1960 Arrival Date: 10/26/2016 Time: 10:19 Bed TR7 Private MD: Sigifredo Rowley MD Disposition: 10/26/16 16:59 Discharged to Home/Self Care. Impression: Other chest pain, Headache. - Condition is Stable. - Discharge Instructions: Nonspecific Chest Pain, General Headache Without Cause. - Medication Reconciliation, Local Pharmacy Hours form. - Follow up: Sigifredo Rowley; When: Tomorrow; Reason: Continuance of care. - Problem is new. - Symptoms have improved. Historical: - Allergies: TETANUS TOXOID; - Home Meds: 1. metformin 1,000 mg oral tab 1 tab 2 times per day 2. gabapentin 600 mg oral tab 1 tab twice a day last filled in January 3. fluconazole 150 mg Oral tab 1 tab daily 4. benztropine 1 mg oral tab 2 times per day 5. tizanidine 4 mg oral tab 1 tab three times a day 6. baclofen 10 mg Oral tab 1 tab twice a day as needed 7. ammonium lactate cream apply to feet daily 8. cyclobenzaprine 10 mg Oral tab 1 tab 3 times per day 9. divalproex 500 mg oral TbEC 1 tab 3 times per day 10. lisinopril 20 mg Oral tab 1 tab once daily 11. Chantix Oral as directed 12. risperidone 2 mg oral tab 1 tab 2 times per day 13. chlorthalidone 12.5 mg daily Oral tab .5 tab once daily 14. Spironolactone 12.5 mg daily Oral - PMHx: Bipolar disorder; Chronic Back pain; Depression; Bronchitis; Fibromyalgia; Hypertension; Trigeminal Neuralgia; - PSHx: benign tumor removed left kidney; triple fusion with a titanium merary to neck in 2000; - Social history: Smoking status: Patient uses tobacco products, current every day smoker. No barriers to communication noted, The patient speaks fluent Malaysian, Speaks appropriately for age. - Family history: Not pertinent. - : Unable to assess if pt is on anticoagulants. Unable to Verify Home Med List with the patient / caregiver. Home medication list is obtained from patients' pharmacy. - Exposure Risk Screening:: None identified. Vital Signs: 10/26 10:20 BP 183 / 78; Pulse 95; Resp 18; Temp 98.7(O); Pulse Ox 97% ; Weight 102.51 kg / 226 lbs ct3 (R); Height 5 ft. 5 in. (165.10 cm) (R); Pain 10/10; 11:33 BP 177 / 92; ms18 13:04 BP 142 / 91; Pulse 90; Resp 18; Pulse Ox 95% ; ms18 13:16 BP 137 / 85 (auto/); mk4 13:23 Pulse 90 MON; Pulse Ox 91% ; mk4 13:30 Pulse 92 MON; Pulse Ox 94% ; ms18 13:31 BP 144 / 86 (auto/); ms18 13:31 Pulse 88 MON; Pulse Ox 93% ; ms18 13:32 Pain 4/10; ms18 13:45 Pulse 92 MON; Pulse Ox 92% ; ms18 13:46 BP 139 / 81 (auto/); ms18 13:56 Pulse 94 MON; Pulse Ox 93% ; ms18 14:01 BP 135 / 79 (auto/); ms18 14:16 BP 133 / 74 (auto/); ms18 14:16 Pulse 92 MON; Pulse Ox 93% ; ms18 14:31 BP 136 / 76 (auto/); ms18 14:33 Pulse 102 MON; Pulse Ox 94% ; ms18 14:46 Pulse 88 MON; Pulse Ox 93% ; ms18 14:46 BP 127 / 66 (auto/); mk4 14:47 Pulse 92 MON; Pulse Ox 94% ; mk4 14:48 Pulse 92 MON; Pulse Ox 94% ; ms18 15:00 Pulse 90 MON; Pulse Ox 94% ; ms18 15:01 BP 126 / 62 (auto/); ms18 15:07 Pulse 92 MON; Pulse Ox 94% ; mk4 15:16 BP 146 / 79 (auto/); ms18 15:31 BP 147 / 78 (auto/); mk4 17:09 BP 132 / 72; Pulse 92; Resp 20; Temp 97.2(O); Pulse Ox 94% on R/A; mk4 10:20 Body Mass Index 37.61 (102.51 kg, 165.10 cm) ct3 MDM: 10:32 ECG WITH READING ER PHYS+CARDIAG ordered. EDMS 12:17 IV Saline Lock ordered. fg 12:17 morphine 4 mg IVP once ordered. fg 12:17 diphenhydrAMINE 25 mg IVP once ordered. fg 12:17 Promethazine 12.5 mg IVP once; dilute and administer 30-60 minutes ordered. fg 12:18 CT Head Without Contrast Ordered. EDMS 12:21 Aspirin Chewable Tablet 324 mg PO once ordered. fg 12:21 Repeat EKG (put time details section) ordered. fg 12:21 Basic Metabolic Profile Ordered. EDMS 12:22 CBC with Diff Ordered. EDMS 12:22 Cardiac Injury Profile Ordered. EDMS 12:22 Troponin Ordered. EDMS 12:33 Repeat EKG (put time details section) complete. lbd 12:34 ECG WITH READING ER PHYS ordered. EDMS 13:26 Troponin: 1530 Ordered. EDMS 14:01 Financial registration complete. lg 15:[place] [facility] [place] was scanned into [employer] and attached to record. lg 15:49 ketorolac 30 mg IVP once ordered. fg 10/27 12:10 T-Sheet-- Draft Copy was scanned into [employer] and attached to record. gb 12:10 ECG/EKG was scanned into [employer] and attached to record. gb Administered Medications: 10/26 13:03 Drug: morphine 4 mg [morphine 4 mg/mL intravenous cartridge (1 mL)] Route: IVP; Site: ms18 right hand; 13:32 Follow up: Pain 4/10 Adult; Response: No Adverse Reaction; Pain is decreased ms18 13:03 Drug: diphenhydrAMINE 25 mg [diphenhydramine 50 mg/mL injection solution (0.5 mL)] ms18 Route: IVP; Site: right hand; 13:32 Follow up: Response: No Adverse Reaction; Pain is decreased ms18 13:03 Drug: Promethazine 12.5 mg [promethazine 25 mg/mL injection solution (0.5 mL)] Route: ms18 IVP; Site: right hand; 13:32 Follow up: Response: No Adverse Reaction ms18 13:03 Drug: Aspirin 324 mg [aspirin 81 mg chewable tablet (4 tabs)] Route: PO; ms18 13:32 Follow up: Response: No Adverse Reaction ms18 16:10 Drug: ketorolac 30 mg [ketorolac 30 mg/mL (1 mL) injection solution (1 mL)] Route: IVP; ms18 Site: right hand; Signatures: Dispatcher [employer] EDMS Nidia Fuentes, RN RN rajendra Newman Mami, [employer] lbd Beronica Rocha RN RN [facility] Bo Teresa, Reg Reg gb Jazlyn Ghassan, Reg Reg lg Carmita Stern RN RN Deepti Trejo RN RN ms18 Bibi Bob MD MD fg The chart was reviewed and I authenticate all verbal orders and agree with the evaluation and treatment provided.Corrections: (The following items were deleted from the chart) 12: 12:22 TROPONIN+LAB ordered. EDMS EDMS Attachments: 15:32 [facility] [place] lg 10/27 12:10 T-Sheet-- Draft Copy gb 12:10 ECG/EKG Chart Complete MTDD
== END 2016-10-26 17:12 | disposition home or self-care (01) ==
LOC: M ED 10:19
DX: R51 Headache (principal); R07.9 Chest pain, unspecified; I10 Essential (primary) hypertension; M79.7 Fibromyalgia; F31.9 Bipolar disorder, unspecified; M54.9 Dorsalgia, unspecified; F17.200 Nicotine dependence, unspecified, uncomplicated; Z88.7 Allergy status to serum and vaccine
CPT/HCPCS: 36415; 70450; 80048; 82550; 82553; 84484; 85025; 93005; 96374; 96375; 99284; J1200; J1885

== ENCOUNTER → 2016-10-27 | Outpatient (CLI) | payer MEDICARE, MEDICAID | LOC: M LAB 10:05 | PROVIDERS: ATTEND Nurse Practitioner Family | DX: Z79.899 Other long term (current) drug therapy (principal); Z51.81 Encounter for therapeutic drug level monitoring ==

== ENCOUNTER → 2016-11-23 | Outpatient (CLI) | payer MEDICARE, MEDICAID ==
--- NOTE | 2016-11-23 15:20 | REP ---
CT MAXILLOFACIAL WITHOUT CONTRAST: 11/23/2016 COMPARISON: 11/18/2014 CT. CLINICAL HISTORY: Acute sinusitis for 10 days. TECHNIQUE: Axial noncontrast images through the paranasal sinuses with coronal bone window reconstructions. FINDINGS: Frontal sinuses are clear. Sphenoid sinuses are clear. Ethmoid air cells show no opacification or mucosal thickening of significance. Maxillary sinus shows no mucosal thickening. The OMCs show patent ostia and infundibula with hiatus semilunaris intact. There are no suha bullosa in the middle turbinates. The nasal septum is midline. Orbital contents and orbital floor intact and symmetric. Small Tootie cells noted on the right. The cribriform plate, remainder of the visualized floor of the anterior cranial fossa, and skull base are intact. Mastoids symmetric. IMPRESSION: 1. No CT evidence of significant mucosal disease, occlusion, or stenosis of the OMCs or destructive bone changes in the facial bones. Septum midline. No acute or chronic sinusitis at this time. Signed by Abdoul Lee MD 11/23/2016 05:16 P
== END ==
LOC: M RAD 12:48
PROVIDERS: ATTEND Family Medicine
DX: J32.9 Chronic sinusitis, unspecified (principal)

== ENCOUNTER 2017-01-09 11:21 | Emergency (ER) | payer MEDICARE, MEDICAID ==
[~2017-01-09] VITALS: Ht 165.1 cm; Wt 104.3 kg
[~2017-01-09 11:21] MED LIST changes: +GABA-282 PO; -GABA300C3 PO
[2017-01-09 11:22] VITALS: BP 155/79
[2017-01-09] MEDS ORDERED: RISP2TAB30 PO (11:45)
[2017-01-09] MEDS ORDERED: CARB20TA PO (11:45)
[2017-01-09] MEDS ORDERED: LISI40TAB PO (11:46)
[2017-01-09] MEDS ORDERED: ZANA4TAB PO (13:55)
[2017-01-09] MEDS ORDERED: MOBI15TA PO (13:55)
== END 2017-01-09 14:05 | disposition home or self-care (01) ==
LOC: M ED 13:07
DX: R51 Headache (principal); G89.29 Other chronic pain; F31.9 Bipolar disorder, unspecified; F17.200 Nicotine dependence, unspecified, uncomplicated; Z86.69 Personal history of other diseases of the nervous system and sense organs; Z79.899 Other long term (current) drug therapy; Z79.84 Long term (current) use of oral hypoglycemic drugs; Z88.8 Allergy status to other drugs, medicaments and biological substances; Z88.7 Allergy status to serum and vaccine

== ENCOUNTER 2017-01-28 07:11 | Emergency (ER) | payer MEDICARE, MEDICAID ==
[~2017-01-28] VITALS: Ht 165.1 cm; Wt 104.3 kg
[~2017-01-28 07:11] MED LIST changes: +LISI40TAB PO; +MOBI15TA PO; +RISP2TAB30 PO; +ZANA4TAB PO
[2017-01-28] MEDS ORDERED: MORPHINE 4 MG/ML 1ML SYRINGE IM ONE (07:30)
[2017-01-28 08:10] VITALS: BP 178/84
== END 2017-01-28 08:11 | disposition home or self-care (01) ==
LOC: M ED 07:39
DX: G50.0 Trigeminal neuralgia (principal); G89.29 Other chronic pain; E11.9 Type 2 diabetes mellitus without complications; I10 Essential (primary) hypertension; F17.200 Nicotine dependence, unspecified, uncomplicated; Z79.899 Other long term (current) drug therapy

== ENCOUNTER 2017-01-31 14:38 | Emergency (ER) | payer MEDICARE, MEDICAID ==
[~2017-01-31] VITALS: Ht 165.1 cm; Wt 104.3 kg
[2017-01-31] MEDS ORDERED: METF1000 PO (14:55)
[2017-01-31] MEDS ORDERED: BACL-67 PO (14:55)
[2017-01-31] MEDS ORDERED: MORPHINE 10 MG/ML 1ML VIAL IM ONE (16:00)
[2017-01-31] MEDS ORDERED: PROMETHAZINE INJ 25 MG/ML VIAL (J2550) IM ONE (16:00)
[2017-01-31 16:57] LABS: MEAN CORPUSCULAR HEMOGLOBIN 30.3 pg (27.0-33.0); MEAN CORPUSCULAR HGB CONC 34.2 g/dl (32.0-36.5); MEAN CORPUSCULAR VOLUME 88.5 fl (80.0-96.0); RED CELL DISTRIBUTION WIDTH 14.1 % (11.5-14.5); WHITE BLOOD COUNT 7.8 K/mm3 (4.0-10.0)
[2017-01-31 17:24] LABS: ALBUMIN 3.6 GM/DL (3.2-5.2); ALBUMIN/GLOBULIN RATIO 1.06 (1.00-1.93); ALKALINE PHOSPHATASE 120 U/L (45-117); ALT/SGPT 44 U/L (12-78); ANION GAP 10 MEQ/L (8-16); AST/SGOT 26 U/L (15-37); BILIRUBIN,DIRECT < 0.1 MG/DL (0.0-0.2); BILIRUBIN,TOTAL 0.2 MG/DL (0.2-1.0); BLOOD UREA NITROGEN 19 MG/DL (7-18); CARBAMAZEPINE (TEGRETOL) LEVEL 12.7 UG/ML (4.0-10.0); CARBON DIOXIDE LEVEL 26 MEQ/L (21-32); CHLORIDE LEVEL 98 MEQ/L (98-107); CREATININE FOR GFR 0.87 MG/DL (0.55-1.02); GLOMERULAR FILTRATION RATE > 60.0 (>51); GLUCOSE, FASTING 221 MG/DL (70-105); POTASSIUM SERUM 4.4 MEQ/L (3.5-5.1); SODIUM LEVEL 134 MEQ/L (136-145)
[2017-01-31 17:25] LABS: LITHIUM LEVEL < 0.20 MEQ/L (0.60-1.20)
[2017-01-31 17:28] LABS: METHADONE URINE NEGATIVE (NEGATIVE)
[2017-01-31 19:51] VITALS: BP 151/69
== END 2017-01-31 19:54 | disposition home or self-care (01) ==
LOC: M ED 15:45
DX: G89.29 Other chronic pain (principal); I10 Essential (primary) hypertension; Z85.528 Personal history of other malignant neoplasm of kidney; Z90.5 Acquired absence of kidney; Z87.891 Personal history of nicotine dependence; Z79.899 Other long term (current) drug therapy; Z88.8 Allergy status to other drugs, medicaments and biological substances; Z88.7 Allergy status to serum and vaccine

== ENCOUNTER 2017-02-02 10:50 | Inpatient (IN) | payer MEDICARE, MEDICAID ==
[~2017-02-02] VITALS: Ht 165.1 cm; Wt 104.0 kg
[2017-02-02] MEDS: NICOTINE 21MG/24HR 1 EA TRANSDERMAL TD SCH (09:00)
[~2017-02-02 10:50] MED LIST changes: +BACL-67 PO; +METF1000 PO
[2017-02-02 12:03] LABS: MEAN CORPUSCULAR HEMOGLOBIN 30.7 pg (27.0-33.0); MEAN CORPUSCULAR HGB CONC 33.9 g/dl (32.0-36.5); MEAN CORPUSCULAR VOLUME 90.6 fl (80.0-96.0); RED CELL DISTRIBUTION WIDTH 14.1 % (11.5-14.5); WHITE BLOOD COUNT 9.5 K/mm3 (4.0-10.0)
[2017-02-02 12:16] LABS: METHADONE URINE NEGATIVE (NEGATIVE)
[2017-02-02 12:27] LABS: ALBUMIN 3.7 GM/DL (3.2-5.2); ALBUMIN/GLOBULIN RATIO 0.97 (1.00-1.93); ALKALINE PHOSPHATASE 125 U/L (45-117); ALT/SGPT 43 U/L (12-78); ANION GAP 14 MEQ/L (8-16); AST/SGOT 22 U/L (15-37); BILIRUBIN,DIRECT < 0.1 MG/DL (0.0-0.2); BILIRUBIN,TOTAL 0.2 MG/DL (0.2-1.0); BLOOD UREA NITROGEN 14 MG/DL (7-18); CALCIUM LEVEL 10.1 MG/DL (8.5-10.1); CARBON DIOXIDE LEVEL 19 MEQ/L (21-32); CHLORIDE LEVEL 103 MEQ/L (98-107); CREATININE FOR GFR 0.99 MG/DL (0.55-1.02); GLOMERULAR FILTRATION RATE > 60.0 (>51); GLUCOSE, FASTING 251 MG/DL (70-105); POTASSIUM SERUM 4.3 MEQ/L (3.5-5.1); SODIUM LEVEL 136 MEQ/L (136-145); TOTAL PROTEIN 7.5 GM/DL (6.4-8.2)
[2017-02-02] MEDS ORDERED: RISP1TAB3 PO (14:56)
[2017-02-02] MEDS ORDERED: BACL10TA2 PO (14:56)
[2017-02-02] MEDS ORDERED: BENZ1TA PO (14:56)
[2017-02-02] MEDS ORDERED: DEPA1TAB3 PO (14:56)
[2017-02-02 16:44] VITALS: BP 164/84
[2017-02-02] MEDS ORDERED: MAALOX 30 ML SUSP *UDC PO PRN (18:45)
[2017-02-02] MEDS ORDERED: MOM 30ML SUSPENSION UDC PO PRN (18:45)
[2017-02-02] MEDS ORDERED: GLUCOSE 4 GM CHEW TABLET PO PRN (19:00)
[2017-02-02] MEDS ORDERED: GLUCAGON FOR INJ 1 MG VIAL (J1610) SC PRN (19:00)
[2017-02-02] MEDS ORDERED: DEXTROSE 50% 50 ML SYRINGE IV PRN (19:00)
[2017-02-02] MEDS: HumaLOG INSULIN (NovoLOG) PER UNIT SC SCH (21:00)
[2017-02-02] MEDS: BENZTROPINE 1 MG TAB PO SCH (22:08)
[2017-02-02] MEDS: DIVALPROEX 500 MG TAB PO SCH (22:08)
[2017-02-02] MEDS: risperiDONE 2 MG TAB PO SCH (22:08)
[2017-02-02] MEDS: carBAMazepine 200 MG TAB PO SCH (22:08)
[2017-02-02] MEDS: ACETAMINOPHEN TAB 650MG DOSE (2X325MG) PO PRN (22:09)
[2017-02-02] MEDS: BACLOFEN 10 MG TAB PO SCH (22:09)
[2017-02-03] MEDS: HumaLOG INSULIN (NovoLOG) PER UNIT SC SCH ×4 (06:29→21:00)
[2017-02-03 06:58] VITALS: BP 147/73
[2017-02-03] MEDS: NICOTINE 21MG/24HR 1 EA TRANSDERMAL TD SCH (09:00)
--- NOTE | 2017-02-03 09:44 | HPEPDOC ---
Medical History and Physical Date of Admission February 02, 2017 at 14:10 History and Physical PCP: Dr Sigifredo Rowley ATTENDING: Dr. Vicotr Hugo Dinh HPI: 55yo female admitted to [facility] for unspecified depressive disorder. Patient declines to participate with history and physical this time. History is taken from the chart. PMHx: Bipolar Disorder (history of previous lithium toxicity) Abnormal EKG/First degree AVB/ Second degree HB observed with BB - Lopressor d/ cd 08/26- no further Beta blockers recommended) History of OD with TCA and Narcotic- No further TCA or narcotic recommended. HTN DM- Diet controlled h/o [place]- Refused CPAP Obesity- BMI 35.61 allergic rhinitis H/O Recurrent sinusitis/OM Chronic Migraine RIBEIRO- Seen By Dr White-tried on several medications including Indocin, Topamax, baclofen, Percocet, Medrol, Neurontin, Cymbalta. Trigeminal neuralgia/TMJ- referred to ENT in past. Chronic neck pain- Seen By Pain Mgmt/Dr Sepulveda. H/O Occipital injection Dr Sepulveda Chronic back pain/Chronic pain- [facility] Pain mgmt in past. MRI brain 09/27/15 minimal small vessel disease/minimal volume loss MRA brain 11/24 mild atherosclerosis ICAs bilaterally MRI cervical spine 05/25 status post C5-7 fusion, cervical spondylosis C4-5 6-7, no cord compression CT brain 01/27/16- minimal atrophy temporal lobes/minimal left mastoid mucosal thickening/no acute findings. CT Maxillofacial 11/26. No CT evidence of significant mucosal disease, occlusion , or stenosis of the OMCs or destructive bone changes in the facial bones. Septum midline. No acute or chronic sinusitis at this time. PSHX: Cervical Fusion 2010 SOCHX: Resides in: [place] Marital Status: Kids: none Employment: disabled Tobacco use: 10 cig per day ETOH: denies Illicit Drugs: Denies IV Drug Use: Denies Tattoos done unprofessionally: Denies FAMHX: Mother: 75 Alive, well Father: related to CAD Siblings: 1 Brother, 2 Sisters Unk Children: none Unexpected deaths due to medical reasons: None. ROS: As noted in HPI, otherwise 11pt ROS of systems reviewed and remarkable for post menopausal status. PE: Pt declines Physical exam at this time. EK10/26/16 SINUS RHYTHM POSSIBLE LEFT ATRIAL ENLARGEMENT LAD ANTERIOR MYOCARDIAL INFARCTION, OF INDETERMINATE AGE INFERIOR MYOCARDIAL INFARCTION, PROBABLY OLD SIMILAR TO 10/26/16 1045h Tegretol level 2.8 A&P: 55yo female admitted to [facility] for unspecified depressive disorder. 1. Psych. Plan per Psychiatry. EKG on file 10/29, will update. 2. Abnormal EKG. No cardiac signs or symptoms reported, follow with PCP. 4. HTN. Continue lisinopril 40 mg daily. 5. Chronic HAs, head pain, TMJ, trigeminal neuralgia, occipital pain. Continue baclofen 10 mg twice a day. Tylenol 650 mg every 4 hours as needed. 6. DM2- CC. Continue metformin 1000 mg by mouth twice a day. Continue sliding scale insulin. Monitor FSBS. A1c is noted to be 10.1 02/02/17. 7. Follow up- with PCP- Dr Rowley- on discharge. 8. Pt declines to participate with history or physical exam at this time. Vital Signs Vital Signs Date Time Temp Pulse Resp B/P (MAP) Pulse Ox O2 Delivery O2 Flow Rate FiO2 02/03/17 06:58 97.4 96 18 147/73 (97) 02/02/17 18:00 Room Air 02/02/17 16:44 95 Laboratory Data Labs 24H Laboratory Tests 2 02/02/17 11:33: Anion Gap 14, Glomerular Filtration Rate > 60.0, Calcium Level 10.1, Aspartate Amino Transf (AST/SGOT) 22, Alanine Aminotransferase (ALT/SGPT) 43, Alkaline Phosphatase 125H, Total Bilirubin 0.2, Direct Bilirubin < 0.1, Total Protein 7.5 , Albumin 3.7, Albumin/Globulin Ratio 0.97L, Thyroid Stimulating Hormone (TSH) 1.470, Salicylates Level 5.6, Urine Amphetamines Screen NEGATIVE, Urine Benzodiazepines Screen NEGATIVE, Urine Opiates Screen NEGATIVE, Urine Methadone Screen NEGATIVE, Acetaminophen Level < 2.0L, Urine Barbiturates Screen NEGATIVE , Carbamazepine (Tegretol) Level 2.8L, Urine Phencyclidine Screen NEGATIVE, Urine Cocaine Metabolite Screen NEGATIVE, Urine Cannabinoids Screen NEGATIVE, Ethyl Alcohol Level < 0.003 02/02/17 17:25: Bedside Glucose (Misc Panel) 260H 02/02/17 22:05: Bedside Glucose (Misc Panel) 224H 02/03/17 06:23: Bedside Glucose (Misc Panel) 245H CBC/BMP Laboratory Tests 02/02/17 11:33 Red Blood Count 4.73, Mean Corpuscular Volume 90.6, Mean Corpuscular Hemoglobin 30.7, Mean Corpuscular Hemoglobin Concent 33.9, Red Cell Distribution Width 14.1 Home Medications Scheduled (Depakote) 500 Mg Tab, 500 MG PO TID PT STATES HER DR WANTED HER TO SWITCH BACK TO [place] DR 500 TID AND TO STOP THE TEGRETOL- SHE DOESNT LIKE THE WAY THE TEGRETOL MAKES HER FEEL- CURRENTLY TAKING BOTH ACCORDING TO HER (Risperidone) 1 Mg Tab, 1 MG PO DAILY 1200 Baclofen (Baclofen) 10 Mg Tab, 10 MG PO BID Benztropine Mesylate (Benztropine Mesylate) 1 Mg Tab, 1 MG PO TID PT STATES SHE TAKES ONE WITH EVERY RISPERDOL Carbamazepine (TEGretol) 200 Mg Tab, 200 MG PO TID PT STATES HER DR WANTED HER TO SWITCH BACK TO [place] DR 500 TID AND TO STOP THE TEGRETOL- SHE DOESNT LIKE THE WAY THE TEGRETOL MAKES HER FEEL- CURRENTLY TAKING BOTH ACCORDING TO HER Lisinopril (Lisinopril) 40 Mg Tab, 40 MG PO DAILY Metformin Hydrochloride (Metformin HCl) 1,000 Mg Tab, 1,000 MG PO BID Risperidone (Risperdal) 2 Mg Tab, 2 MG PO BID AM AND QHS Allergies Coded Allergies: Tetanus Toxoid (Verified Allergy, Unknown, 01/31/17) Metoprolol (Verified Adverse Reaction, Severe, second degree heart block, 01/31/17) Geno Mcmahon February 03, 2017 09:44
[2017-02-03] MEDS: metFORMIN (GLUCOPHAGE) 1000 MG TABLET PO SCH ×2 (10:23→18:47)
[2017-02-03] MEDS: carBAMazepine 200 MG TAB PO SCH ×2 (10:23→21:46)
[2017-02-03] MEDS: BACLOFEN 10 MG TAB PO SCH ×2 (10:23→21:46)
[2017-02-03] MEDS: risperiDONE 2 MG TAB PO SCH ×2 (10:23→21:46)
[2017-02-03] MEDS: LISINOPRIL 40 MG TAB PO SCH (10:23)
[2017-02-03] MEDS: DIVALPROEX 500 MG TAB PO SCH (10:24)
[2017-02-03] MEDS: BENZTROPINE 1 MG TAB PO SCH ×3 (10:24→21:46)
[2017-02-03] MEDS: risperiDONE 1 MG TAB PO SCH (12:23)
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
[2017-02-03] MEDS: NYSTATIN 100,000 UNITS/GM TOPICAL PWD 15 GM TOP SCH ×2 (12:53→21:00)
--- NOTE | 2017-02-03 14:53 | ECGEPIP ---
Stationary ECG Study [facility] Test Date: 2017-02-03 Pat Name: ANISH OHARA Department: Room: [place] [address] Gender: F Channel Opener: : 1960 Requested By: Geno Mcmahon Order Number: [id number] Reading MD: Mckinley Kimball Measurements Intervals [place] Rate: 96 P: 52 DE: 180 QRS: -61 QRSD: 95 T: 74 QT: 344 QTc: 436 Interpretive Statements Normal sinus rhythm LA conduction disturbance Borderline first-degree AV block Marked leftward axis - left anterior hemiblock Poor precordial R-wave progression with ST elevation in keeping with prior AWMI and LV aneurysm No change from 10/26/16. Electronically Signed On 02-03-2017 14:53:31 EDT by Mckinley Kimball
[2017-02-03] MEDS: ACETAMINOPHEN TAB 650MG DOSE (2X325MG) PO PRN (16:56)
[2017-02-03 18:00] VITALS: BP 113/75
[2017-02-03] MEDS: traZODone 50 MG TAB PO PRN (21:46)
[2017-02-04] MEDS: HumaLOG INSULIN (NovoLOG) PER UNIT SC SCH ×4 (06:33→21:00)
[2017-02-04] MEDS: ACETAMINOPHEN TAB 650MG DOSE (2X325MG) PO PRN ×3 (06:34→21:39)
[2017-02-04 06:56] VITALS: BP 132/58
[2017-02-04] MEDS: BENZTROPINE 1 MG TAB PO SCH ×2 (08:12→21:38)
[2017-02-04] MEDS: carBAMazepine 200 MG TAB PO SCH ×2 (08:12→21:38)
[2017-02-04] MEDS: BACLOFEN 10 MG TAB PO SCH ×2 (08:12→21:38)
[2017-02-04] MEDS: metFORMIN (GLUCOPHAGE) 1000 MG TABLET PO SCH ×2 (08:12→17:33)
[2017-02-04] MEDS: risperiDONE 2 MG TAB PO SCH ×2 (08:12→21:38)
[2017-02-04] MEDS: NYSTATIN 100,000 UNITS/GM TOPICAL PWD 15 GM TOP SCH ×2 (08:13→21:40)
[2017-02-04] MEDS: LISINOPRIL 40 MG TAB PO SCH (08:13)
[2017-02-04] MEDS: NICOTINE 21MG/24HR 1 EA TRANSDERMAL TD SCH (08:14)
[2017-02-04] MEDS: risperiDONE 1 MG TAB PO SCH (12:26)
--- NOTE | 2017-02-04 14:10 | MHIPNPDOC ---
[facility] Progress Note Progress Note DATE OF SERVICE: 02/04/17 HISTORY OF THE PRESENT ILLNESS: Patient is a 56-year-old female, who presented to the emergency room indicating that she needed to be admitted due to "my bipolar problems are acting up," added she was experiencing trigeminal neuralgia related pain which was causing mood instability and suicidal ideation. Patient has history of numerous psychiatric hospitalizations dating back to adolescence, was last admitted from due to exacerbation of bipolar symptoms and suicidal ideation, has a history of medication and treatment noncompliance. Patient attributes current psychiatric decompensation to neurologist recently changing her medication, indicates she restarted Depakote without neurologist knowledge just prior to hospitalization, was taking in combination with carbamazepine, then stopped due to concerns related to combining medications. Dye Room Helper met with patient today to assess treatment progress on inpatient unit. Dye Room Helper has asked nursing to pursue medication reconciliation, updated med recon remains unavailable in EMR. Dye Room Helper spoke at length with patient regarding medications today, patient indicates her neurologist at taken her off Depakote and placed on carbamazepine due to believing medication would be more effective for treatment of trigeminal neuralgia and mood. Patient denies neurologist had concerns about her taking Depakote, denies medication side effects when she was taking, adds Depakote was more effective than carbamazepine, and continues to request to be put back on Depakote. Patient reports current anxiety level 6/10, depression 5/10 noting, "my pain is little less today and when my pain is weaker my depression goes down." Patient denies suicidal and homicidal ideation , denies auditory and visual hallucinations, denies urge to engage in self- injurious behavior. Patient rates pain level is 7/10 to jaw and head, nursing is aware that patient needs to be evaluated by PA. Patient is more engageable today and more visible. Patient reports reduced concentration secondary to pain , indicates appetite is stable, reports improvement in energy level. Patient states she slept well last night, denies nightmares symptoms. Patient presents with no signs of acute distress at time of interaction. Of Note: Attempt made to reach patient's neurologist, , to confirm patient's medication and treatment history, voicemail message left requesting a return call. VITALS: See below NEW TEST RESULTS: No new results PAST MEDICAL/SURGICAL HISTORY: Cervical fusion 2011, hypertension, chronic headache, chronic head pain, diabetes mellitus, TMJ, type criminal neuralgia, occipital pain. Labs on admission indicated low carbon dioxide and AGR and elevated alkaline phosphatase and glucose Abnormal EKG/first-degree A-V be/second-degree HB observed with BB - Lopressor DC'd 08/26 - no further beta blockers recommended History of overdose with TCA and narcotic - no further TCA or narcotic recommended HTN, diabetes mellitus, STERLING, refuses CPAP, obesity, allergic rhinitis, history of recurrent sinusitis/OM chronic migraine, trigeminal neuralgia/TMJ, chronic neck pain, chronic back pain, MRI brain 09/27/15 minimal small vessel disease/ minimal volume loss and are a brain 11/24 mild atherosclerosis ICA's bilaterally , MRI cervical spine 05/25 status post C5-7 fusion, cervical spondylosis C4-5 67 , no cord compression. CT brain 01/27/16 minimal atrophy temporal lobe/minimal left mastoid mucosal thickening/no acute findings CT maxillofacial 11/26. No CT evidence of significant mucosal disease, occlusion , or stenosis of the OM C's or destructive bone changes in the facial bones. Septum midline. No acute or chronic sinusitis at this time. 10/26/16 EKG sinus rhythm possible left atrial enlargement LAD anterior myocardial infarction, of indeterminate age inferior mild cardial infarction, probably old similar to 10/26/16. Patient is asymptomatic, PA recommending follow -up outpatient. Clinical consultation sought, patient is stable with no change, recommended follow-up outpatient 02/02/[address] - essentially unremarkable CT examination of the brain. There is been no significant change compared to the prior exam UDS negative 02/02/17 Tegretol level 2.8 02/03/17 Depakote level 49.6 CURRENT MEDICATIONS: See below MENTAL STATUS EXAMINATION: General appearance: Patient is a 56-year old female, who is pleasant and cooperative, less disheveled today and has tended to her ADLs, dressed in hospital clothing, makes improved eye contact, appears stated age, and relates with steady gait Speech:. Of normal rate, rhythm, volume, spontaneous, coherent Thought processes: Logical, linear, goal-directed. Thought content: Logical, no tangentiality or paranoia noted, perseverative to pain. Abstract reasoning and computation: Appear intact. Description of associations: Intact. Description of abnormal or psychotic thoughts: Denies suicidal or homicidal ideation, denies auditory or visual hallucinations, does not appear to be responding to internal stimuli, does not endorse bizarre or paranoid ideation, denies preoccupation with violence or obsessions. Judgment: Limited. Insight: Limited Orientation: A and O 3 Recent and remote memory: Appear intact. Attention span and concentration: Appear intact. Fund of knowledge: Appears adequate. Mood: "A little better today, I have less pain." Patient appears less depressed and less anxious, less mood lability noted Affect: Blunted, brightens at times, congruent with mood DIAGNOSES: Bipolar disorder, rule out anxiety disorder, rule out psychiatric disorder related to other medical condition ASSESSMENT: Patient is more engageable today, reports reduction in pain, remains withdrawn and isolative to room and has been encouraged to participate in unit programming. Patient is brighter and reports improvement to symptoms of anxiety and depression. Patient continues to request discontinuation of carbamazepine and restart of Depakote, will continue taper. Patient is requesting PRN anxiolytic to address intermittent symptoms of anxiety, will add hydroxyzine PRN, indicates today she is supposed to be taking Cogentin BID not TID and is agreeable to dose reduction. Nursing continues to seek clarification on medications and junior project coordinator will pursue collateral information on medication and treatment history. Patient indicates balance of medication regimen is effective and denies medication side effects, denies need for dosing adjustment. The importance of treatment compliance has been addressed with patient. Patient denies current suicidal and homicidal ideation and verbalizes awareness of how to access supportive services on the unit if needed. Will monitor patient's response to medications and monitor for side effects, and will also evaluate patient's safety, resolution of suicidal ideation, and discharge readiness. Patient reiterates today when prepared for discharge she plans to return home to her apartment in [place] where she lives independently and resume outpatient psychotherapy and medication management services through [facility]. MANAGEMENT PLAN: Carbamazepine currently 200 mg po BID, will decrease to 200 mg po q day at 16:00 starting 02/05/17 2 days with plan continue taper with eventual d/c if tolerated by patient. Restart Depakote 500 mg po BID to begin on 02/05/17 2 days with plan to titrate to TID if tolerated by patient. Continue Risperdal 2 mg po BID and 1 mg at noon. Reduce Cogentin 1 mg po to BID. Initiate hydroxyzine 50 mg po q 6 hours PRN anxiety. Repeat Depakote level on or about 02/10/17 Maintain safety precautions Patient to attend groups and participate in unit programming to develop coping strategies Engage patient in discharge planning process and arrange meeting with support system to ensure safe discharge planning when appropriate Patient to follow up with PCM and neurologist upon discharge TIME SPENT: 35 minutes Vital Signs Vital Signs Date Time Temp Pulse Resp B/P (MAP) Pulse Ox O2 Delivery O2 Flow Rate FiO2 02/04/17 06:56 97.3 88 20 132/58 (82) 02/02/17 18:00 Room Air 02/02/17 16:44 95 Laboratory Data 24H Labs Laboratory Tests 2 02/03/17 16:51: Bedside Glucose (Misc Panel) 235H 02/03/17 21:42: Bedside Glucose (Misc Panel) 208H 02/04/17 06:24: Bedside Glucose (Misc Panel) 264H 02/04/17 12:26: Bedside Glucose (Misc Panel) 198H Current Medications Current Medications Acetaminophen (Tylenol Tab) 650 mg Q6HP PRN PO HEADACHE or DISCOMFORT Last administered on 02/04/17 06:34; Start 02/02/17 at 18:45; Stop 03/04/17 at 18:44 Al Hydrox/Mg Hydrox/Simethicone (Mylanta) 30 ml Q4HP PRN PO HEARTBURN/ INDIGESTION; Start 02/02/17 at 18:45; Stop 03/04/17 at 18:44 Baclofen (Lioresal) 10 mg BID PO Last administered on 02/04/17 08:12; Start at 21:00; Stop 03/04/17 at 20:59 Benztropine Mesylate (Cogentin) 1 mg TID PO Last administered on 02/04/17 08: 12; Start 02/02/17 at 21:00; Stop 03/04/17 at 20:59 Carbamazepine (TEGretol) 200 mg BID PO Last administered on 02/04/17 08:12; Start 02/03/17 at 21:00; Stop 02/04/17 at 21:00 Carbamazepine (TEGretol) 200 mg DAILY@1600 PO ; Start 02/05/17 at 16:00; Stop at 16:01 Carbamazepine (TEGretol) 200 mg TID PO Last administered on 02/03/17 10:23; Start 02/02/17 at 21:00; Stop 02/03/17 at 16:22; Status DC Dextrose (Dextrose 50%) 25 ml ASDIRECTED PRN IV SEE LABEL COMMENTS; Start 02/02 at 19:00; Stop 03/04/17 at 18:59 Divalproex Sodium (Depakote) 500 mg BID PO ; Start 02/05/17 at 09:00; Stop 03/07 at 08:59; Status UNV Divalproex Sodium (Depakote) 500 mg TID PO Last administered on 02/03/17 10:24 ; Start 02/02/17 at 21:00; Stop 02/03/17 at 16:14; Status DC Glucagon (Glucagon) 1 mg ASDIRECTED PRN SC SEE LABEL COMMENTS; Start 02/02/17 at 19:00; Stop 03/04/17 at 18:59 Glucose (Glucose) 16 GM ASDIRECTED PRN PO SEE LABEL COMMENTS; Start 02/02/17 at 19:00; Stop 03/04/17 at 18:59 Home Med (Med Rec Complete!) ASDIRECTED XX ; Start 02/02/17 at 15:00; Stop at 15:00; Status DC Insulin Human Lispro (HumaLOG INSULIN) See Protocol Table AC SC Last administered on 02/04/17 06:33; Start 02/03/17 at 07:30; Stop 03/05/17 at 07:29 Insulin Human Lispro (HumaLOG INSULIN) See Protocol Table QHS SC ; Start at 21:00; Stop 03/04/17 at 20:59 Lisinopril (Prinivil) 40 mg DAILY PO Last administered on 02/04/17 08:13; Start 02/03/17 at 09:00; Stop 03/05/17 at 08:59 Magnesium Hydroxide (Milk Of Magnesia) 30 ml DAILYPRN PRN PO CONSTIPATION; Start 02/02/17 at 18:45; Stop 03/04/17 at 18:44 Metformin HCl (Glucophage) 1,000 mg BID@,18 PO Last administered on 08:12; Start 02/03/17 at 08:00; Stop 03/05/17 at 07:59 Nicotine (Nicoderm Cq 21mg) 1 patch DAILY TD ; Start 02/02/17 at 09:00; Stop at 08:59 Nystatin (Mycostatin Powder, Nystop) Apply to area under breasts BID TOP Last administered on 02/04/17 08:13; Start 02/03/17 at 09:00; Stop 03/05/17 at 08:59 Risperidone (RisperDAL) 1 mg DAILY@1200 PO Last administered on 02/04/17 12:26 ; Start 02/03/17 at 12:00; Stop 03/05/17 at 11:59 Risperidone (RisperDAL) 2 mg AMHS PO Last administered on 02/04/17 08:12; Start 02/02/17 at 21:00; Stop 03/04/17 at 20:59 Trazodone HCl (Desyrel) 50 mg QHSP PRN PO INSOMNIA Last administered on 21:46; Start 02/02/17 at 18:45; Stop 03/04/17 at 18:44 Allergies Coded Allergies: Tetanus Toxoid (Verified Allergy, Unknown, 01/31/17) Metoprolol (Verified Adverse Reaction, Severe, second degree heart block, 01/31/17) Jenny Salas February 04, 2017 14:10
[2017-02-04 18:00] VITALS: BP 144/71
[2017-02-04] MEDS: traZODone 50 MG TAB PO PRN (21:38)
[2017-02-05 06:29] VITALS: BP 152/79
[2017-02-05] MEDS: HumaLOG INSULIN (NovoLOG) PER UNIT SC SCH ×4 (06:30→21:00)
[2017-02-05] MEDS: metFORMIN (GLUCOPHAGE) 1000 MG TABLET PO SCH ×2 (08:19→17:15)
[2017-02-05] MEDS: BENZTROPINE 1 MG TAB PO SCH ×2 (08:19→22:03)
[2017-02-05] MEDS: risperiDONE 2 MG TAB PO SCH ×2 (08:19→22:02)
[2017-02-05] MEDS: LISINOPRIL 40 MG TAB PO SCH (08:19)
[2017-02-05] MEDS: BACLOFEN 10 MG TAB PO SCH ×2 (08:19→22:03)
[2017-02-05] MEDS: DIVALPROEX 500 MG TAB PO SCH ×2 (08:19→22:03)
[2017-02-05] MEDS: NICOTINE 21MG/24HR 1 EA TRANSDERMAL TD SCH (08:20)
[2017-02-05] MEDS: NYSTATIN 100,000 UNITS/GM TOPICAL PWD 15 GM TOP SCH ×2 (08:20→22:05)
[2017-02-05] MEDS: risperiDONE 1 MG TAB PO SCH (12:27)
[2017-02-05] MEDS: hydrOXYzine 50 MG TAB PO PRN ×2 (15:39→22:08)
[2017-02-05] MEDS: carBAMazepine 200 MG TAB PO SCH (15:39)
[2017-02-05 18:00] VITALS: BP 106/54
[2017-02-05] MEDS: IBUPROFEN 600 MG TAB PO PRN (22:11)
--- NOTE | 2017-02-05 22:45 | IPN ---
DATE: 02/05/2017 A 56-year-old female admitted with symptoms of depression and suicidal ideation. SUBJECTIVE: "I'm feeling a little better." OBJECTIVE: No major changes from admission. Patient continues to be depressed, although she is able to contract for safety while in the hospital. Denies auditory or visual hallucinations. Denies side effects from the medication. MENTAL STATUS EXAMINATION: Patient is dressed in [facility]. Patient is cooperative. Has fair eye contact. Speech is slow and monotone. Mood is depressed. Affect is restricted. No illusions or hallucinations. Memory is fair. Patient is able to contract for safety while in the hospital. Insight and judgment is limited. ASSESSMENT: 1. Depression. 2. Suicidal ideation. PLAN: 1. Continue with Tegretol 200 mg by mouth daily. 2. Continue with Depakote 500 mg by mouth daily. 3. Continue with Cogentin 1 mg by mouth twice a day. 4. Continue with hydroxyzine 50 mg every 6 hours as needed for anxiety. 6. Continue with Risperdal 1 mg by mouth daily and 2 mg by mouth at bedtime.
[2017-02-06 06:45] VITALS: BP 132/65
[2017-02-06] MEDS: HumaLOG INSULIN (NovoLOG) PER UNIT SC SCH ×4 (06:50→21:00)
[2017-02-06] MEDS: metFORMIN (GLUCOPHAGE) 1000 MG TABLET PO SCH ×2 (08:00→17:27)
[2017-02-06] MEDS: NYSTATIN 100,000 UNITS/GM TOPICAL PWD 15 GM TOP SCH ×2 (09:00→22:26)
[2017-02-06] MEDS: NICOTINE 21MG/24HR 1 EA TRANSDERMAL TD SCH (09:00)
[2017-02-06] MEDS: LISINOPRIL 40 MG TAB PO SCH (09:00)
[2017-02-06] MEDS: DIVALPROEX 500 MG TAB PO SCH ×2 (09:00→22:25)
[2017-02-06] MEDS: risperiDONE 2 MG TAB PO SCH ×2 (09:00→22:25)
[2017-02-06] MEDS: BACLOFEN 10 MG TAB PO SCH ×2 (09:00→22:25)
[2017-02-06] MEDS: BENZTROPINE 1 MG TAB PO SCH ×2 (09:00→22:26)
[2017-02-06] MEDS: IBUPROFEN 600 MG TAB PO PRN ×3 (10:49→22:27)
[2017-02-06] MEDS: risperiDONE 1 MG TAB PO SCH (12:22)
[2017-02-06] MEDS: carBAMazepine 200 MG TAB PO SCH (15:04)
[2017-02-06] MEDS: hydrOXYzine 50 MG TAB PO PRN (17:27)
[2017-02-06 18:00] VITALS: BP 154/90
--- NOTE | 2017-02-06 21:56 | IPN ---
DATE: 02/06/2017 A 56-year-old female admitted with depression and suicidal ideation. SUBJECTIVE: "This pain don't let me sleep." OBJECTIVE: No major changes. The patient continues depressed. The patient was in bed most of the morning, interacts little with other patients and staff. Continues with psychomotor retardation and restricted facial expression. No evidence of psychotic symptoms. MENTAL STATUS EXAMINATION: The patient is dressed in [facility]. The patient is cooperative during exam. Has very poor eye contact. Speech is slow and monotone. Mood is depressed. Affect is restricted. No delusions or hallucinations. Memory, attention and concentration are fair. The patient continues with intermittent suicidal thoughts. Insight and judgment are limited. ASSESSMENT: 1. Depression. 2. Suicidal ideation. PLAN: 1. Continue with Tegretol 200 mg by mouth daily. 2. Continue with Depakote 500 mg by mouth daily. 3. Continue with Cogentin 1 mg by mouth twice a day. 4. Continue with Risperdal 1 mg by mouth daily and 2 mg at bedtime. 5. Continue with hydroxyzine 50 mg every six hours as needed for anxiety.
[2017-02-07 06:00] VITALS: BP 135/76
[2017-02-07] MEDS: HumaLOG INSULIN (NovoLOG) PER UNIT SC SCH ×4 (07:23→21:00)
[2017-02-07] MEDS: risperiDONE 2 MG TAB PO SCH ×2 (08:34→21:50)
[2017-02-07] MEDS: DIVALPROEX 500 MG TAB PO SCH ×3 (08:34→21:52)
[2017-02-07] MEDS: BENZTROPINE 1 MG TAB PO SCH ×2 (08:34→21:50)
[2017-02-07] MEDS: metFORMIN (GLUCOPHAGE) 1000 MG TABLET PO SCH ×2 (08:34→17:19)
[2017-02-07] MEDS: hydrOXYzine 50 MG TAB PO PRN ×2 (08:34→18:21)
[2017-02-07] MEDS: BACLOFEN 10 MG TAB PO SCH ×2 (08:34→21:52)
[2017-02-07] MEDS: LISINOPRIL 40 MG TAB PO SCH (08:34)
[2017-02-07] MEDS: NYSTATIN 100,000 UNITS/GM TOPICAL PWD 15 GM TOP SCH ×2 (08:35→21:00)
[2017-02-07] MEDS: IBUPROFEN 600 MG TAB PO PRN ×2 (08:35→18:21)
[2017-02-07] MEDS: NICOTINE 21MG/24HR 1 EA TRANSDERMAL TD SCH (08:36)
[2017-02-07] MEDS: risperiDONE 1 MG TAB PO SCH (11:46)
[2017-02-07 18:00] VITALS: BP 155/79
[2017-02-07] MEDS: traZODone 50 MG TAB PO PRN (21:50)
[2017-02-07] MEDS: ACETAMINOPHEN TAB 650MG DOSE (2X325MG) PO PRN (21:51)
[2017-02-08 06:06] VITALS: BP 139/72
[2017-02-08] MEDS: HumaLOG INSULIN (NovoLOG) PER UNIT SC SCH ×4 (06:42→21:00)
[2017-02-08] MEDS: hydrOXYzine 50 MG TAB PO PRN (08:31)
[2017-02-08] MEDS: BACLOFEN 10 MG TAB PO SCH ×2 (08:31→21:38)
[2017-02-08] MEDS: metFORMIN (GLUCOPHAGE) 1000 MG TABLET PO SCH ×2 (08:31→17:09)
[2017-02-08] MEDS: BENZTROPINE 1 MG TAB PO SCH ×2 (08:31→21:38)
[2017-02-08] MEDS: risperiDONE 2 MG TAB PO SCH ×2 (08:31→21:38)
[2017-02-08] MEDS: LISINOPRIL 40 MG TAB PO SCH (08:31)
[2017-02-08] MEDS: DIVALPROEX 500 MG TAB PO SCH ×3 (08:31→21:38)
[2017-02-08] MEDS: IBUPROFEN 600 MG TAB PO PRN ×2 (08:32→21:38)
[2017-02-08] MEDS: NICOTINE 21MG/24HR 1 EA TRANSDERMAL TD SCH (08:32)
[2017-02-08] MEDS: NYSTATIN 100,000 UNITS/GM TOPICAL PWD 15 GM TOP SCH ×2 (08:33→21:00)
[2017-02-08] MEDS: risperiDONE 1 MG TAB PO SCH (11:39)
--- NOTE | 2017-02-08 14:35 | MHIPNPDOC ---
[facility] Progress Note Progress Note DATE OF SERVICE: 02/08/17 HISTORY OF THE PRESENT ILLNESS: Patient is a 56-year-old female, who presented to the emergency room indicating that she needed to be admitted due to "my bipolar problems are acting up," added she was experiencing trigeminal neuralgia related pain which was causing mood instability and suicidal ideation. Patient has history of numerous psychiatric hospitalizations dating back to adolescence, was last admitted from due to exacerbation of bipolar symptoms and suicidal ideation, has a history of medication and treatment noncompliance. Patient attributes current psychiatric decompensation to neurologist recently changing her medication, indicates she restarted Depakote without neurologist knowledge just prior to hospitalization, was taking in combination with carbamazepine, then stopped due to concerns related to combining medications. Respiratory Coordinator met with patient today to assess treatment progress on inpatient unit. Patient indicates since discontinuation of carbamazepine and increase of Depakote to TID she has experienced notable improvement in symptoms, today denies symptoms of depression, rates anxiety / related to "the good kind of anxiety, I'm really looking forward to getting home," denies suicidal and homicidal ideation, and denies urge to engage in self-injurious behavior. Patient also reports improvement to pain related to trigeminal neuralgia. Patient is noticeably brighter today, more engageable today and more visible, states she has been attending groups and groups are helpful. Patient reports improvement to concentration and focus, states appetite and energy levels are stable. Patient also reports improvement to sleep, denies nightmares symptoms. Patient presents with no signs of acute distress at time of interaction, and makes request for discharge to home. Of Note: Nursing was able to contact neurologist, 's office, to verify medication changes except able and to alert as to patient's status. VITALS: See below NEW TEST RESULTS: No new results PAST MEDICAL/SURGICAL HISTORY: Cervical fusion 2010, hypertension, chronic headache, chronic head pain, diabetes mellitus, TMJ, type criminal neuralgia, occipital pain. Labs on admission indicated low carbon dioxide and AGR and elevated alkaline phosphatase and glucose Abnormal EKG/first-degree A-V be/second-degree HB observed with BB - Lopressor DC'd 08/26 - no further beta blockers recommended History of overdose with TCA and narcotic - no further TCA or narcotic recommended HTN, diabetes mellitus, STERLING, refuses CPAP, obesity, allergic rhinitis, history of recurrent sinusitis/OM chronic migraine, trigeminal neuralgia/TMJ, chronic neck pain, chronic back pain, MRI brain 09/27/15 minimal small vessel disease/ minimal volume loss and are a brain 11/24 mild atherosclerosis ICA's bilaterally , MRI cervical spine 05/25 status post C5-7 fusion, cervical spondylosis C4-5 67 , no cord compression. CT brain 01/27/16 minimal atrophy temporal lobe/minimal left mastoid mucosal thickening/no acute findings CT maxillofacial 11/26. No CT evidence of significant mucosal disease, occlusion , or stenosis of the OM C's or destructive bone changes in the facial bones. Septum midline. No acute or chronic sinusitis at this time. 10/26/16 EKG sinus rhythm possible left atrial enlargement LAD anterior myocardial infarction, of indeterminate age inferior mild cardial infarction, probably old similar to 10/26/16. Patient is asymptomatic, PA recommending follow -up outpatient. Clinical consultation sought, patient is stable with no change, recommended follow-up outpatient 02/02/[address] - essentially unremarkable CT examination of the brain. There is been no significant change compared to the prior exam UDS negative 02/02/17 Tegretol level 2.8 02/03/17 Depakote level 49.6 CURRENT MEDICATIONS: See below MENTAL STATUS EXAMINATION: General appearance: Patient is a 56-year old female, who is pleasant and cooperative, exhibits good personal hygiene, has completed her ADLs, dressed in own clothing, dressed in hospital clothing, makes good eye contact, appears stated age, ambulates with steady gait Speech:. Of normal rate, rhythm, volume, spontaneous, coherent Thought processes: Logical, linear, goal-directed. Thought content: Logical, no tangentiality or paranoia noted, no perseveration today Abstract reasoning and computation: Appear intact. Description of associations: Intact. Description of abnormal or psychotic thoughts: Denies suicidal or homicidal ideation, denies auditory or visual hallucinations, does not appear to be responding to internal stimuli, does not endorse bizarre or paranoid ideation, denies preoccupation with violence or obsessions. Judgment: Adequate, has improved during treatment Insight: Fair, has improved during treatment Orientation: A and O 3 Recent and remote memory: Appear intact. Attention span and concentration: Appear intact. Fund of knowledge: Appears adequate. Mood: "I feel better, the medication is helping, and I feel ready to go home." Patient denies anxiety and depression today, no mood lability noted Affect: Constricted, brightens appropriately, congruent with mood DIAGNOSES: Bipolar disorder, rule out anxiety disorder, rule out psychiatric disorder related to other medical condition ASSESSMENT: Patient is more engageable today, pleasant and cooperative, has been more visible on unit, participating in unit programming. Patient reports notable symptom improvement since discontinuation of carbamazepine and increase in Depakote to TID. Patient is requesting discharge to home, has been educated on potential side effects of medications, including toxicity, and the need to complete follow-up lab work for ongoing medication monitoring; patient verbalizes understanding and has given informed consent. Patient is requesting discharge to home today, is aware that lab work will be completed tomorrow morning. Patient indicates current medication regimen is effective, denies need for dosing adjustment, and denies medication side effects. Patient has been utilizing hydroxyzine PRN 1-2 times/day to address intermittent symptoms of anxiety, indicates medication works well and is requesting Rx at discharge. The importance of treatment compliance was again addressed with patient. EKG results were reviewed with patient who verbalized understanding of need to follow up with outpatient provider. Patient denies current suicidal and homicidal ideation and verbalizes awareness of how to access supportive services on the unit if needed. Will continue to monitor patient's response to medications and monitor for side effects, and will also evaluate patient's safety and discharge readiness. Patient is aware discharge is tentatively scheduled for tomorrow and that medical front desk coordinator is attempting to communicate with patient's support system and ensure that outpatient follow-up services are in place. Nursing is aware that patient will need to follow up with neurologist upon discharge and PCM/psychiatrist for ongoing lab work. Patient indicates her discharge plan remains to return home to her apartment in [place] where she lives independently and resume outpatient psychotherapy and medication management services through [facility]. Patient denies need for prescriptions for all medications at time of discharge other than hydroxyzine PRN. MANAGEMENT PLAN: Continue Depakote 500 mg po TID, Risperdal 2 mg po BID and 1 mg at noon, Cogentin 1 mg po to BID, and hydroxyzine 50 mg po q 6 hours PRN anxiety. Repeat Depakote level on or about 02/10/17 Maintain safety precautions Patient to attend groups and participate in unit programming to develop coping strategies Engage patient in discharge planning process and arrange meeting with support system to ensure safe discharge planning when appropriate Patient to follow up with PCM and neurologist upon discharge TIME SPENT: 35 minutes Vital Signs Vital Signs Date Time Temp Pulse Resp B/P (MAP) Pulse Ox O2 Delivery O2 Flow Rate FiO2 02/08/17 06:06 97.9 87 20 139/72 (94) 02/06/17 06:45 Room Air 02/02/17 16:44 95 Laboratory Data 24H Labs Laboratory Tests 2 02/07/17 16:46: Bedside Glucose (Misc Panel) 172H 02/07/17 21:46: Bedside Glucose (Misc Panel) 172H 02/08/17 06:39: Bedside Glucose (Misc Panel) 210H 02/08/17 11:22: Bedside Glucose (Misc Panel) 179H Current Medications Current Medications Acetaminophen (Tylenol Tab) 650 mg Q6HP PRN PO HEADACHE or DISCOMFORT Last administered on 02/07/17 21:51; Start 02/02/17 at 18:45; Stop 03/04/17 at 18:44 Al Hydrox/Mg Hydrox/Simethicone (Mylanta) 30 ml Q4HP PRN PO HEARTBURN/ INDIGESTION; Start 02/02/17 at 18:45; Stop 03/04/17 at 18:44 Baclofen (Lioresal) 10 mg BID PO Last administered on 02/08/17 08:31; Start at 21:00; Stop 03/04/17 at 20:59 Benztropine Mesylate (Cogentin) 1 mg BID PO Last administered on 02/08/17 08: 31; Start 02/04/17 at 21:00; Stop 03/04/17 at 20:59 Benztropine Mesylate (Cogentin) 1 mg TID PO Last administered on 02/04/17 08: 12; Start 02/02/17 at 21:00; Stop 02/04/17 at 14:48; Status DC Carbamazepine (TEGretol) 200 mg BID PO Last administered on 02/04/17 21:38; Start 02/03/17 at 21:00; Stop 02/04/17 at 21:00; Status DC Carbamazepine (TEGretol) 200 mg DAILY@1600 PO Last administered on 02/06/17 15 :04; Start 02/05/17 at 16:00; Stop 02/06/17 at 16:01; Status DC Carbamazepine (TEGretol) 200 mg TID PO Last administered on 02/03/17 10:23; Start 02/02/17 at 21:00; Stop 02/03/17 at 16:22; Status DC Dextrose (Dextrose 50%) 25 ml ASDIRECTED PRN IV SEE LABEL COMMENTS; Start 02/02 at 19:00; Stop 03/04/17 at 18:59 Divalproex Sodium (Depakote) 500 mg BID PO Last administered on 02/07/17 08:34 ; Start 02/05/17 at 09:00; Stop 02/07/17 at 12:36; Status DC Divalproex Sodium (Depakote) 500 mg TID PO Last administered on 02/03/17 10:24 ; Start 02/02/17 at 21:00; Stop 02/03/17 at 16:14; Status DC Divalproex Sodium (Depakote) 500 mg TID PO Last administered on 02/08/17 08:31 ; Start 02/07/17 at 16:00; Stop 03/07/17 at 08:59 Glucagon (Glucagon) 1 mg ASDIRECTED PRN SC SEE LABEL COMMENTS; Start 02/02/17 at 19:00; Stop 03/04/17 at 18:59 Glucose (Glucose) 16 GM ASDIRECTED PRN PO SEE LABEL COMMENTS; Start 02/02/17 at 19:00; Stop 03/04/17 at 18:59 Home Med (Med Rec Complete!) ASDIRECTED XX ; Start 02/02/17 at 15:00; Stop at 15:00; Status DC Hydroxyzine HCl (Atarax) 50 mg Q6HP PRN PO ANXIETY Last administered on 08:31; Start 02/04/17 at 14:45; Stop 03/06/17 at 14:44 Ibuprofen (Advil) 600 mg Q6HP PRN PO MODERATE PAIN (PS 5-7) Last administered on 02/08/17 08:32; Start 02/05/17 at 22:00; Stop 03/07/17 at 21:59 Insulin Human Lispro (HumaLOG INSULIN) See Protocol Table AC SC Last administered on 02/08/17 11:40; Start 02/03/17 at 07:30; Stop 03/05/17 at 07:29 Insulin Human Lispro (HumaLOG INSULIN) See Protocol Table QHS SC ; Start at 21:00; Stop 03/04/17 at 20:59 Lisinopril (Prinivil) 40 mg DAILY PO Last administered on 02/08/17 08:31; Start 02/03/17 at 09:00; Stop 03/05/17 at 08:59 Magnesium Hydroxide (Milk Of Magnesia) 30 ml DAILYPRN PRN PO CONSTIPATION; Start 02/02/17 at 18:45; Stop 03/04/17 at 18:44 Metformin HCl (Glucophage) 1,000 mg BID@08,18 PO Last administered on 08:31; Start 02/03/17 at 08:00; Stop 03/05/17 at 07:59 Nicotine (Nicoderm Cq 21mg) 1 patch DAILY TD ; Start 02/02/17 at 09:00; Stop at 08:59 Nystatin (Mycostatin Powder, Nystop) Apply to area under breasts BID TOP Last administered on 02/07/17 08:35; Start 02/03/17 at 09:00; Stop 03/05/17 at 08:59 Risperidone (RisperDAL) 1 mg DAILY@1200 PO Last administered on 02/08/17 11:39 ; Start 02/03/17 at 12:00; Stop 03/05/17 at 11:59 Risperidone (RisperDAL) 2 mg AMHS PO Last administered on 02/08/17 08:31; Start 02/02/17 at 21:00; Stop 03/04/17 at 20:59 Trazodone HCl (Desyrel) 50 mg QHSP PRN PO INSOMNIA Last administered on 21:50; Start 02/02/17 at 18:45; Stop 03/04/17 at 18:44 Allergies Coded Allergies: Tetanus Toxoid (Verified Allergy, Unknown, 01/31/17) Metoprolol (Verified Adverse Reaction, Severe, second degree heart block, 01/31/17) Jenny Salas February 08, 2017 14:35
[2017-02-08 18:23] VITALS: BP 125/71
[2017-02-09 06:14] VITALS: BP 139/97
[2017-02-09] MEDS: HumaLOG INSULIN (NovoLOG) PER UNIT SC SCH ×2 (06:32→12:00)
[2017-02-09 07:25] LABS: ALBUMIN 3.5 GM/DL (3.2-5.2); ALBUMIN/GLOBULIN RATIO 1.03 (1.00-1.93); BILIRUBIN,DIRECT 0.1 MG/DL (0.0-0.2); BILIRUBIN,TOTAL 0.3 MG/DL (0.2-1.0); TOTAL PROTEIN 6.9 GM/DL (6.4-8.2)
[2017-02-09] MEDS: NICOTINE 21MG/24HR 1 EA TRANSDERMAL TD SCH (09:00)
[2017-02-09] MEDS: NYSTATIN 100,000 UNITS/GM TOPICAL PWD 15 GM TOP SCH (09:00)
--- NOTE | 2017-02-09 09:00 | MHDSPDOC ---
[facility] Discharge Summary Discharge Summary DATE OF ADMISSION: February 02, 2017 at 14:10 DATE OF DISCHARGE: February 09, 2017 HISTORY: Patient is a 56-year-old female, who presented to the emergency room indicating that she needed to be admitted due to "my bipolar problems are acting up," added she was experiencing trigeminal neuralgia related pain which was causing mood instability and suicidal ideation. Patient has history of numerous psychiatric hospitalizations dating back to adolescence, was last admitted from / due to exacerbation of bipolar symptoms and suicidal ideation, has a history of medication and treatment noncompliance. Patient indicates her neurologist began taking her off of Depakote and putting her on Tegretol approximately 3 months ago, indicates symptoms of anxiety, depression, mood lability, helplessness and hopelessness, reduced concentration, poor sleep , reduced appetite, and suicidal ideation have exacerbated over the past 3 months. Patient states she has been experiencing suicidal ideation with no plan or intent, reports she has a history of suicide attempts [address] of cutting left wrist. Patient indicates when she was taking Depakote she felt "emotionally in control," adds her pain was better managed states to brief writer today, "I want to be taken off Tegretol and be put back on Depakote so I came to the hospital to get my levels checked and where I knew it could be done safely." Patient notes Tegretol has not been controlling bipolar symptoms and is ineffective for pain. Patient denies history of side effects when taking Depakote. Patient reports current anxiety level of 8/10, depression 5/10, denies current suicidal or homicidal ideation, denies auditory or visual hallucinations, denies urge to engage in self-injurious behavior. Patient states that due to medication ineffectiveness she took carbamazepine with Depakote 1 day, adds she then "didn't feel good," so stopped and then decided she needed to go inpatient. Patient endorses history of discomfort in social settings and panic, denies impulse control challenges, compulsive behavior, agitation, aggression, and further denies history of unsanctioned violence. Per EMR, however, patient has a history of being argumentative and aggressive toward family, disruptive and violent toward property when not been compliant with medication, and during one of her previous hospitalizations, she also took objects off the wall in a violent manner requiring response with medical restraint. Patient indicates she does not have weapons in the home. Patient denies symptoms of reexperiencing, avoidance, and hypervigilance. Patient indicates she was diagnosed with bipolar disorder age 16 and has had episodes of carlos, adds she has recently been "feeling a little manic, my mood is down and my mother tells me I've been ugly irritable lately." Patient states she sleeps approximately 4-5 hours per night, denies challenges with latency but notes she struggles with maintenance. Patient reports current pain level of 10/10 related to trigeminal neuralgia, nursing was made aware. Patient indicates she was not evaluated by PA today due to being in too much pain, nursing was asked to request that evaluation be made by PA as soon as possible. PSYCHIATRIC REVIEW OF SYSTEMS AT TIME OF ADMISSION: Affective: Dysthymic Anxiety: Endorses Trauma: Indicates history of living in "a violent environment while I was growing up," denies history of child abuse or witnessing domestic violence in the home Psychosis: Denies Personally: Engageable PAST PSYCHIATRIC HISTORY: Prior Psychiatric Disorder: Outpatient Treatment: Indicates she was last seen by psychiatric provider at [facility] on 01/27/17, adds she feels psychiatric provider "doesn't like to make changes to my meds." Suicidal/Self injurious: Reports one prior suicide attempt via cutting to wrist , per EMR patient has made other attempts and has history of suicidal ideation Psychotropic Medication History: Risperdal, Cogentin, Depakote, and vague assist Vashti, Depakote ER, Invega, Zyprexa, Valium, Haldol, Ativan, Benadryl, Atarax, lithium, Klonopin, Prolixin, trazodone Currently takes Risperdal 1 mg po daily at noon and 2 mg po BID, Cogentin 1 mg po TID, and carbamazepine 200 mg TID. States was taking Depakote 500 mg po BID, thinks was ER but is not certain, unable to verify due to medication reconciliation has not been completed MEDICAL/SURGICAL HISTORY: Cervical fusion 2010, hypertension, chronic headache, chronic head pain, diabetes mellitus, TMJ, type criminal neuralgia, occipital pain. Labs on admission indicated low carbon dioxide and AGR and elevated alkaline phosphatase and glucose Abnormal EKG/first-degree A-V be/second-degree HB observed with BB - Lopressor DC'd 12/15 - no further beta blockers recommended History of overdose with TCA and narcotic - no further TCA or narcotic recommended HTN, diabetes mellitus, STERLING, refuses CPAP, obesity, allergic rhinitis, history of recurrent sinusitis/OM chronic migraine, trigeminal neuralgia/TMJ, chronic neck pain, chronic back pain, MRI brain 09/27/15 minimal small vessel disease/ minimal volume loss and are a brain 11/24 mild atherosclerosis ICA's bilaterally , MRI cervical spine 05/25 status post C5-7 fusion, cervical spondylosis C4-5 67 , no cord compression. CT brain 01/27/16 minimal atrophy temporal lobe/minimal left mastoid mucosal thickening/no acute findings CT maxillofacial 11/26. No CT evidence of significant mucosal disease, occlusion , or stenosis of the OM C's or destructive bone changes in the facial bones. Septum midline. No acute or chronic sinusitis at this time. 10/26/16 EKG sinus rhythm possible left atrial enlargement LAD anterior myocardial infarction, of indeterminate age inferior mild cardial infarction, probably old similar to 10/26/16. Patient is asymptomatic, PA recommending follow -up outpatient. Clinical consultation sought, patient is stable with no change, recommended follow-up outpatient 02/02/[address] - essentially unremarkable CT examination of the brain. There is been no significant change compared to the prior exam UDS negative 02/02/17 Tegretol level 2.8 02/03/17 Depakote level 49.6 02/09/17 Depakote level 51.4 FAMILY PSYCHIATRIC HISTORY: Mother - depression Maternal aunt- depression Maternal cousin- bipolar disorder Maternal grandmother - bipolar disorder SOCIAL HISTORY: Early Relations/development: Indicates she was born and raised in the [facility] by biological mother and father in intact unit, states father approximately 10 years ago and one brother 2 months ago from brain cancer. Sibling order: Had brother who 2 months ago brain cancer Paternal relationships: Indicates generally supportive Education: High school graduate Occupational: Denies Legal: Indicates she is facing bankruptcy, denies other legal challenges Martial: Was 16 years, remains for 18 years, no children, lost 7 month fetus Economic: Lives alone in own apartment, no longer in TLS housing Supports: Indicates mother is supportive, has daily contact Abuse/trauma: States she grew up in violent environment but denies overt child abuse and denies witnessing domestic violence in the home while growing up SUBSTANCE ABUSE HISTORY: None of significance TREATMENT PROGRESS ON UNIT: Patient has adjusted well to unit, has been pleasant and cooperative, has engaged selectively with staff and peers, has participated in unit programming, and has presented with no behavior management challenges. At patient request, cross titration from carbamazepine to Depakote has been completed without incident, patient indicates she is experiencing dramatically improved mood and reduced pain associated with trigeminal neuralgia. Patient denies symptoms of depression and anxiety, denies auditory or visual hallucinations, denies suicidal or homicidal ideation, denies urge to engage in self-injurious behavior. Patient denies irritability, agitation, impulsivity, and mood lability. Patient indicates current medication regimen is working well and she denies medication side effects, has been utilizing hydroxyzine PRN to address intermittent symptoms of anxiety with good effect, makes request for continuation of hydroxyzine PRN at home after discharge. Patient has been educated on potential side effects of medications, including toxicity, and the need to complete follow-up lab work within 1-2 weeks of discharge for ongoing medication monitoring; patient verbalizes understanding and has given informed consent for medications. The importance of treatment compliance was addressed with patient. EKG results were reviewed with patient who is asymptomatic and denied symptoms of chest pain, palpitations, dizziness, headache, and shortness of breath, verbalized understanding of need to follow up with outpatient provider. Nursing has made arrangements for follow-up neurology appointment and patient is aware she will also need to follow-up with PCM regarding diabetes management. Patient is able to effectively participate in safety planning process and is requesting discharge to home today and family meeting has been completed with patient's mother to deny having concerns pertaining to patient's discharge readiness. Patient plans to return home to her apartment in [place] where she lives independently and resume outpatient psychotherapy and medication management services through [facility]. MENTAL STATUS EXAMINATION ON DISCHARGE: General appearance: Patient is a 56-year old female, who is pleasant and cooperative, exhibits good personal hygiene, has completed her ADLs, dressed in own clothing, dressed in hospital clothing, makes good eye contact, appears stated age, ambulates with steady gait Speech:. Of normal rate, rhythm, volume, spontaneous, coherent Thought processes: Logical, linear, goal-directed. Thought content: Logical, no tangentiality or paranoia noted, no perseveration Abstract reasoning and computation: Appear intact. Description of associations: Intact. Description of abnormal or psychotic thoughts: Denies suicidal or homicidal ideation, denies auditory or visual hallucinations, does not appear to be responding to internal stimuli, does not endorse bizarre or paranoid ideation, denies preoccupation with violence or obsessions. Judgment: Adequate, has improved during treatment Insight: Fair, has improved during treatment Orientation: A and O 3 Recent and remote memory: Appear intact. Attention span and concentration: Appear intact. Fund of knowledge: Appears adequate. Mood: "I feel better, the meds are good and I'm ready to go." Patient denies anxiety and depression today, no mood lability noted Affect: Full range, brightens frequently and appropriately, congruent with mood CONDITION ON DISCHARGE: Stable, no suicidal or homicidal ideation DIAGNOSES ON DISCHARGE: Bipolar disorder, rule out anxiety disorder, rule out psychiatric disorder related to other medical condition MEDICATIONS ON DISCHARGE: See below FOLLOW UP PLAN: Continue Depakote 500 mg po TID, Risperdal 2 mg po BID and 1 mg at noon, Cogentin 1 mg po to BID, and hydroxyzine 50 mg po q 6 hours PRN anxiety. Patient to discharge to home today and will follow up outpatient psychotherapy and medication management through [facility] Patient to complete follow-up lab work within 1-2 weeks of discharge Patient to follow-up with PCM regarding recent EKG results, diabetes management , and any other health concerns within 5-7 days for discharge Patient to follow up with neurologist for ongoing evaluation and monitoring as indicated TIME SPENT COORDINATING CARE: 40 minutes Vital Signs/I&Os Vital Signs Date Time Temp Pulse Resp B/P (MAP) Pulse Ox O2 Delivery O2 Flow Rate FiO2 02/09/17 06:14 97.9 97 18 139/97 (111) 02/06/17 06:45 Room Air Laboratory Data Labs 24H Laboratory Tests 2 02/08/17 11:22: Bedside Glucose (Misc Panel) 179H 02/08/17 16:28: Bedside Glucose (Misc Panel) 191H 02/08/17 21:34: Bedside Glucose (Misc Panel) 174H 02/09/17 06:18: Bedside Glucose (Misc Panel) 219H 02/09/17 06:45: Aspartate Amino Transf (AST/SGOT) 29, Alanine Aminotransferase (ALT/SGPT) 54, Alkaline Phosphatase 110, Total Bilirubin 0.3, Direct Bilirubin 0.1, Total Protein 6.9, Albumin 3.5, Albumin/Globulin Ratio 1.03, Valproic Acid (Depakene) Level 51.4 Medications Scheduled (Risperidone) 1 Mg Tab, 1 MG PO DAILY, (Reported) 1200 (Depakote) 500 Mg Tab, 500 MG PO TID for Mood stabilization/Pain, #21 (Glucose Meter Test Strips) 1 Jeff Jeff, 1 JEFF [facility] for diabetes, #90 Baclofen (Baclofen) 10 Mg Tab, 10 MG PO BID, (Reported) Benztropine Mesylate (Benztropine Mesylate) 1 Mg Tab, 1 MG PO BID for EPS, #1 Lisinopril (Lisinopril) 40 Mg Tab, 40 MG PO DAILY, (Reported) Metformin Hydrochloride (Metformin HCl) 1,000 Mg Tab, 1,000 MG PO BID, (Reported ) Risperidone (Risperdal) 2 Mg Tab, 2 MG PO BID, (Reported) AM AND QHS Scheduled PRN Hydroxyzine HCl (Hydroxyzine HCl) 50 Mg Tab, 50 MG PO Q6HP PRN for ANXIETY, #14 Allergies Coded Allergies: Tetanus Toxoid (Verified Allergy, Unknown, 01/31/17) Metoprolol (Verified Adverse Reaction, Severe, second degree heart block, 01/31/17) Jenny Salas February 09, 2017 09:00
[2017-02-09] MEDS ORDERED: BENZ1TA PO (09:14)
[2017-02-09] MEDS ORDERED: HYDRO50TAB PO (09:14)
[2017-02-09] MEDS ORDERED: DEPA1TAB3 PO (09:14)
[2017-02-09] MEDS: DIVALPROEX 500 MG TAB PO SCH (09:35)
[2017-02-09] MEDS: metFORMIN (GLUCOPHAGE) 1000 MG TABLET PO SCH (09:35)
[2017-02-09] MEDS: risperiDONE 2 MG TAB PO SCH (09:35)
[2017-02-09] MEDS: BENZTROPINE 1 MG TAB PO SCH (09:35)
[2017-02-09] MEDS: LISINOPRIL 40 MG TAB PO SCH (09:36)
[2017-02-09] MEDS: BACLOFEN 10 MG TAB PO SCH (09:36)
[2017-02-09 09:38] VITALS: BP 148/86
[2017-02-09] MEDS ORDERED: GLUC1TES2 VI (11:57)
[2017-02-09] MEDS: risperiDONE 1 MG TAB PO SCH (12:14)
== END 2017-02-09 12:50 | disposition home or self-care (01) | DRG 885 ==
LOC: M ED 12:15 → M ED INP 14:10 → M PSY 16:32
PROVIDERS: ADMIT Psychiatry & Neurology Psychiatry; ATTEND Psychiatry & Neurology Psychiatry
DX: F31.9 Bipolar disorder, unspecified (principal); R45.851 Suicidal ideations; F41.9 Anxiety disorder, unspecified; G50.0 Trigeminal neuralgia; R94.31 Abnormal electrocardiogram [ECG] [EKG]; I10 Essential (primary) hypertension; M26.609 Unspecified temporomandibular joint disorder, unspecified side; E11.9 Type 2 diabetes mellitus without complications; F17.210 Nicotine dependence, cigarettes, uncomplicated; Z79.84 Long term (current) use of oral hypoglycemic drugs; Z79.899 Other long term (current) drug therapy; Z88.8 Allergy status to other drugs, medicaments and biological substances; Z88.7 Allergy status to serum and vaccine; E66.9 Obesity, unspecified; Z68.35 Body mass index [BMI] 35.0-35.9, adult; Z82.49 Family history of ischemic heart disease and other diseases of the circulatory system; Z78.0 Asymptomatic menopausal state

== ENCOUNTER 2017-03-29 18:13 | Emergency (ER) | payer MEDICARE, MEDICAID ==
[~2017-03-29] VITALS: Ht 165.1 cm; Wt 106.8 kg
[~2017-03-29 18:13] MED LIST changes: -AUGM875T27 PO; +AUGM875T28 PO; -BACL-67 PO; +BACL1TAB9 PO; +BENZ-52 PO; +DEPA1TAB3 PO; +GLUC1TES2 VI; -HYDR-4274 PO; +HYDR50TA70 PO; +HYDRO50TAB PO; +KEFL500C17 PO; -KEFL500C7 PO; -LEVA750T PO; +LEVA750T7 PO; -METF1000 PO; +METF10004 PO; -METF500T PO; +METF500T13 PO; -METO100T PO; +METO100T5 PO; -NAPR500T2 PO; +NAPR500T3 PO; +PERC5TAB12 PO; -PERC5TAB6 PO; +RISP1TAB3 PO; -RISP2TAB30 PO; +RISP2TAB32 PO; +TOPA100T12 PO; -TOPA100T8 PO; -TOPA50TA7 PO; +TOPA50TA8 PO; +TRAZ-136 PO; -TRAZ100T4 PO; +TRAZ50TA11 PO; -TRAZ50TA4 PO
[2017-03-29] MEDS ORDERED: LOSA25TA8 PO (18:32)
[2017-03-29] MEDS ORDERED: BACL1TAB9 (19:57)
[2017-03-29] MEDS ORDERED: FLUC150T (19:57)
[2017-03-29] MEDS ORDERED: TOPI25TA10 (19:57)
[2017-03-29] MEDS ORDERED: GENTAMICIN 0.3% OPHTH SOL 5 ML BTL OU ONE (20:15)
--- NOTE | 2017-03-29 20:50 | REPUSA ---
CT of the head Clinical history: Headache. Comparison: 01/03/2016. Technique: Multiple axial CT images were obtained through the head without administration of contrast . Findings: The ventricles and sulci are symmetric bilaterally. There is no evidence of acute hemorrhag e or infarct. There is no midline shift, mass effect, or extra-axial fluid collection. The osseous st ructures are unremarkable. The visualized paranasal sinuses and mastoid air cells are clear. Impression: Negative study.
[2017-03-29] MEDS ORDERED: CLEO300C2 PO (21:13)
[2017-03-29] MEDS ORDERED: GENT3OPD OD (21:13)
[2017-03-29 21:25] VITALS: BP 164/74
== END 2017-03-29 21:49 | disposition home or self-care (01) ==
LOC: M ED 18:13
DX: R51 Headache (principal); H10.13 Acute atopic conjunctivitis, bilateral; L03.114 Cellulitis of left upper limb; E11.9 Type 2 diabetes mellitus without complications; I10 Essential (primary) hypertension; M54.2 Cervicalgia; F31.9 Bipolar disorder, unspecified; F41.9 Anxiety disorder, unspecified; F17.210 Nicotine dependence, cigarettes, uncomplicated; Z88.8 Allergy status to other drugs, medicaments and biological substances; Z88.7 Allergy status to serum and vaccine; Z91.018 Allergy to other foods; Z79.84 Long term (current) use of oral hypoglycemic drugs; Z79.899 Other long term (current) drug therapy

== ENCOUNTER 2017-04-08 10:25 | Inpatient (IN) | payer MEDICARE, MEDICAID ==
[~2017-04-08] VITALS: Ht 165.1 cm; Wt 99.6 kg
[~2017-04-08 10:25] MED LIST changes: +BACL1TAB9; +CLEO300C2 PO; +FLUC150T; +GENT3OPD OD; +LOSA25TA8 PO; +TOPI25TA10
[2017-04-08] MEDS ORDERED: CARB1TAB20 PO (10:56)
[2017-04-08] MEDS ORDERED: FURO40TA2 PO (10:56)
[2017-04-08] MEDS ORDERED: IBUP-1114 PO (10:56)
[2017-04-08] MEDS ORDERED: CITA20TA4 PO ×2 (10:56→13:41)
[2017-04-08] MEDS ORDERED: HYDR1CAP25 PO ×2 (10:56→13:41)
[2017-04-08] MEDS ORDERED: PERCOCET 5MG/325MG TAB PO ONE (11:00)
[2017-04-08 11:45] LABS: MEAN CORPUSCULAR HEMOGLOBIN 28.3 pg (27.0-33.0); MEAN CORPUSCULAR HGB CONC 31.9 g/dl (32.0-36.5); MEAN CORPUSCULAR VOLUME 88.6 fl (80.0-96.0); WHITE BLOOD COUNT 7.3 K/mm3 (4.0-10.0)
[2017-04-08 11:59] LABS: METHADONE URINE NEGATIVE (NEGATIVE)
[2017-04-08 12:07] LABS: ALBUMIN 3.8 GM/DL (3.2-5.2); ALBUMIN/GLOBULIN RATIO 1.12 (1.00-1.93); ALKALINE PHOSPHATASE 92 U/L (45-117); ALT/SGPT 54 U/L (12-78); ANION GAP 10 MEQ/L (8-16); AST/SGOT 39 U/L (15-37); BILIRUBIN,DIRECT < 0.1 MG/DL (0.0-0.2); BILIRUBIN,TOTAL 0.3 MG/DL (0.2-1.0); BLOOD UREA NITROGEN 15 MG/DL (7-18); CALCIUM LEVEL 9.4 MG/DL (8.5-10.1); CARBON DIOXIDE LEVEL 22 MEQ/L (21-32); CHLORIDE LEVEL 109 MEQ/L (98-107); CREATININE FOR GFR 0.94 MG/DL (0.55-1.02); GLOMERULAR FILTRATION RATE > 60.0 (>51); GLUCOSE, FASTING 117 MG/DL (70-105); POTASSIUM SERUM 3.7 MEQ/L (3.5-5.1); SODIUM LEVEL 141 MEQ/L (136-145); TOTAL PROTEIN 7.2 GM/DL (6.4-8.2)
[2017-04-08] MEDS ORDERED: MAALOX 30 ML SUSP *UDC PO PRN (13:15)
[2017-04-08] MEDS ORDERED: MOM 30ML SUSPENSION UDC PO PRN (13:15)
[2017-04-08] MEDS ORDERED: traZODone 50 MG TAB PO PRN (13:15)
[2017-04-08] MEDS ORDERED: BENZ-52 PO (13:41)
[2017-04-08] MEDS ORDERED: RISP2TAB3 PO (13:41)
[2017-04-08] MEDS ORDERED: METF10004 PO (13:41)
[2017-04-08] MEDS ORDERED: LOSA25TA8 PO (13:41)
[2017-04-08] MEDS ORDERED: RISP1TAB3 PO (13:41)
[2017-04-08] MEDS ORDERED: IBUPOTC PO (13:41)
[2017-04-08] MEDS ORDERED: VITA10002 PO (13:41)
[2017-04-08] MEDS ORDERED: TOPI25TA10 PO (13:41)
[2017-04-08 13:49] VITALS: BP 146/82
[2017-04-08] MEDS: NICOTINE 21MG/24HR 1 EA TRANSDERMAL TD SCH (14:20)
--- NOTE | 2017-04-08 14:21 | MHHPEPDOC ---
[facility] History & Physical History and Physical DATE OF ADMISSION: Apr 08, 2017 at 13:03 LEGAL STATUS AT ADMISSION: . CHIEF COMPLAINT: "suicide is my only option with this pain." HISTORY OF THE PRESENT ILLNESS: Patient is a 57-year-old female, who has multiple admissions to this unit for SI related to pain. Pt has long h/o trigeminal neuralgia related pain which was causing mood instability and suicidal ideation. Patient has history of numerous psychiatric hospitalizations dating back to adolescence, was last admitted January of 2017 due to exacerbation of bipolar symptoms and suicidal ideation, has a history of medication and treatment noncompliance. Patient indicates her neurologist began taking her off of Depakote and putting her on Tegretol approximately 3 months ago, indicates symptoms of anxiety, depression, mood lability, helplessness and hopelessness, reduced concentration, poor sleep, reduced appetite, and suicidal ideation have exacerbated over the past 3 months. Patient states she has been experiencing suicidal ideation with no plan or intent, reports she has a history of suicide attempts [address] of cutting left wrist. Patient indicates when she was taking Depakote she felt "emotionally in control," adds her pain was better managed on Depakote. PSYCHIATRIC REVIEW OF SYSTEMS: Affective: tired, laying in bed. Anxiety: high. Trauma: denies physical or sexual abuse. Psychosis: by history, auditory disturbance, no concerns at this time. Personally: cooperative but declined 1:1 with production underwriter preferring to sleep after arriving on the unit. PAST PSYCHIATRIC HISTORY: Prior Psychiatric Disorder: bipolar disorder, chronic Outpatient Treatment: [facility]. Suicidal/Self injurious: previous attempts - cut wrist, long h/o ideation Psychotropic Medication History: .Risperdal, Cogentin, Depakote, and Depakote ER, Invega, Zyprexa, Valium, Haldol, Ativan, Benadryl, Atarax, lithium, Klonopin , Prolixin, trazodone Currently takes Risperdal 1 mg po daily at noon and 2 mg po BID, Cogentin 1 mg po TID, and carbamazepine 200 mg TID. States was taking Depakote 500 mg po BID, thinks was ER. ALLERGIES: Please see below. FAMILY PSYCH HISTORY: Mother - depression Maternal aunt- depression Maternal cousin- bipolar disorder Maternal grandmother - bipolar disorder SOCIAL HISTORY: Early Relations/development: Indicates she was born and raised in the [facility] by biological mother and father in intact unit, states father approximately 10 years ago and one brother 2 months ago from brain cancer. Sibling order: Had brother who 4 months ago brain cancer Paternal relationships: Indicates generally supportive Education: High school graduate Occupational: Denies Legal: none Martial: Was 16 years, remains for 18 years, no children, lost 7 month fetus Economic: Lives alone in own apartment, formerly had TLS support Supports: Indicates mother is supportive, has daily contact Abuse/trauma: States she grew up in violent environment but denies overt child abuse and denies witnessing domestic violence in the home while growing up SUBSTANCE ABUSE HISTORY: None that contributes to history. PAST MEDICAL/SURGICAL HISTORY: (history of previous lithium toxicity) Abnormal EKG/First degree AVB/ Second degree HB observed with BB - Lopressor d/ cd 08/26- no further Beta blockers recommended) History of OD with TCA and Narcotic- No further TCA or narcotic recommended. HTN DM- Diet controlled h/o STERLING- Refused CPAP Obesity- BMI 35.61 allergic rhinitis H/O Recurrent sinusitis/OM Chronic Migraine RIBEIRO- Seen By Dr White-tried on several medications including Indocin, Topamax, baclofen, Percocet, Medrol, Neurontin, Cymbalta. Trigeminal neuralgia/TMJ- referred to ENT in past. Chronic neck pain- Seen By Pain Mgmt/Dr Sepulveda. H/O Occipital injection Dr Sepulveda Chronic back pain/Chronic pain- [facility] Pain mgmt in past. MRI brain 09/27/15 minimal small vessel disease/minimal volume loss MRA brain 11/24 mild atherosclerosis ICAs bilaterally MRI cervical spine 05/25 status post C5-7 fusion, cervical spondylosis C4-5 6-7, no cord compression CT brain 01/27/16- minimal atrophy temporal lobes/minimal left mastoid mucosal thickening/no acute findings. CT Maxillofacial 11/26. No CT evidence of significant mucosal disease, occlusion , or stenosis of the OMCs or destructive bone changes in the facial bones. Septum midline. No acute or chronic sinusitis at this time. PSHX: Cervical Fusion 2010 VITAL SIGNS: Temperature 98.1, pulse 81, respiratory rate 16, blood pressure 146 /82, pulse oximetry 97% on room air. MENTAL STATUS EXAMINATION: General appearance: Patient is a 57-year old female, who is attired in hospital clothing, short, light colored hair, appears given age. Speech: soft, clear, spontaneous Thought processes: linear Thought content: answered questions appropriately. Abstract reasoning and computation: good. Description of associations: good. Description of abnormal or psychotic thoughts: h/o auditory disturbance, h/o SI and attempts , recent SI due to chronic pain. Judgment: fair. Insight: limited. Orientation: oriented to place, time, person and situation. Recent and remote memory: intact Attention span and concentration: varies due to pain, can be very poor some days. Fund of knowledge: full. Mood: "depressed, tired" Affect: sleepy. DIAGNOSES: bipolar II disorder chronic Pain ASSESSMENT: Pt declined 1:1 with production underwriter after completing nursing admission. meds discussed for continuity. Dr. Berry was consulted to order metformin and ibuprofen and Lorsatan. Pt has been admitted to our unit on numerous occasions with the same complaint. Plan: will stabilize pt, assess additional unmet needs. Improve coping with pain by using alternative methods to self calm and minimize pain. Continue outpatient meds. Once pt has rested we can review meds and discuss changes that could be beneficial if pt is interested. PROBLEM LIST: 1. risk for suicide 2. non-compliance 3. depression INITIAL TREATMENT PLAN: 1. Patient was admitted on a . 2. Complete history was obtained. 3. With patients permission, family will be contacted and database will be expanded. 4. Patients medication regimen will be reviewed and changed accordingly. 5. Patient will be provided with protected environment. 6. Patient will be treated with individual, group, and milieu therapies. 7. Patient will receive supportive psych-education. 8. Discharge planning will commence immediately. 9. Outpatient follow-up treatment will be strongly recommended. 10. The initial treatment plan will focus initially on: * Depression. * Risk for suicide. * Substance abuse. ESTIMATED LENGTH OF STAY: 5-7 DAYS. TIME SPENT COUNSELING AND COORDINATING INITIAL CARE: 50 minutes. Laboratory Data 24H Labs Laboratory Tests 2 04/08/17 11:20: Anion Gap 10, Glomerular Filtration Rate > 60.0, Calcium Level 9.4, Aspartate Amino Transf (AST/SGOT) 39H, Alanine Aminotransferase (ALT/SGPT) 54, Alkaline Phosphatase 92, Total Bilirubin 0.3, Direct Bilirubin < 0.1, Total Protein 7.2, Albumin 3.8, Albumin/Globulin Ratio 1.12, Thyroid Stimulating Hormone (TSH) 0.824, Salicylates Level 3.9L, Acetaminophen Level < 2.0L, Ethyl Alcohol Level < 0.003 04/08/17 11:23: Urine Amphetamines Screen NEGATIVE, Urine Benzodiazepines Screen NEGATIVE, Urine Opiates Screen NEGATIVE, Urine Methadone Screen NEGATIVE, Urine Barbiturates Screen NEGATIVE, Urine Phencyclidine Screen NEGATIVE, Urine Cocaine Metabolite Screen NEGATIVE, Urine Cannabinoids Screen NEGATIVE CBC/BMP Laboratory Tests 04/08/17 11:20 Red Blood Count 4.73, Mean Corpuscular Volume 88.6, Mean Corpuscular Hemoglobin 28.3, Mean Corpuscular Hemoglobin Concent 31.9 L, Red Cell Distribution Width 14.0 Medications Scheduled (Risperidone) 2 Mg Tab, 2 MG PO BID, (Reported) TAKES MORNING AND BEDTIME (Risperidone) 1 Mg Tab, 1 MG PO DAILY, (Reported) TAKES IN THE AFTERNOON Benztropine Mesylate (Benztropine Mesylate) 1 Mg Tab, 1 MG PO BID, (Reported) Citalopram Hydrobromide (Citalopram Hydrobromide) 20 Mg Tab, 20 MG PO DAILY, ( Reported) Cyanocobalamin (Vitamin B-12) 1,000 Mcg Tab, 1,000 MCG PO DAILY, (Reported) Hydroxyzine Pamoate (Hydroxyzine Pamoate) 25 Mg Cap, 25 MG PO BID, (Reported) Losartan Potassium (Losartan Potassium) 25 Mg Tab, 25 MG PO DAILY, (Reported) Metformin Hydrochloride (Metformin HCl) 1,000 Mg Tab, 1,000 MG PO BID, (Reported ) Topiramate (Topiramate) 25 Mg Tab, 25 MG PO BID, (Reported) Scheduled PRN Ibuprofen (Ibuprofen) 200 Mg Tab, 400 MG PO QID PRN for PAIN, (Reported) Allergies Coded Allergies: Tetanus Toxoid (Verified Allergy, Unknown, 01/31/17) Metoprolol (Verified Adverse Reaction, Severe, second degree heart block, 01/31/17) Chanel Boss Apr 08, 2017 14:21
[2017-04-08] MEDS: metFORMIN (GLUCOPHAGE) 1000 MG TABLET PO SCH (17:02)
[2017-04-08] MEDS: hydrOXYzine 25 MG TAB PO SCH (17:03)
[2017-04-08] MEDS: IBUPROFEN 400 MG TAB PO SCH (17:10)
[2017-04-08 18:00] VITALS: BP 142/69
[2017-04-08] MEDS: TOPIRAMATE (TopAMAX) 25 MG TAB PO SCH (21:27)
[2017-04-08] MEDS: OXcarbazepine 300 MG TAB PO SCH (21:27)
[2017-04-08] MEDS: BENZTROPINE 1 MG TAB PO SCH (21:28)
[2017-04-08] MEDS: risperiDONE 2 MG TAB PO SCH (21:28)
[2017-04-09] MEDS: IBUPROFEN 400 MG TAB PO SCH ×4 (06:09→17:14)
[2017-04-09 06:32] VITALS: BP 138/90
[2017-04-09] MEDS: metFORMIN (GLUCOPHAGE) 1000 MG TABLET PO SCH ×2 (09:06→17:14)
[2017-04-09] MEDS: BENZTROPINE 1 MG TAB PO SCH ×2 (09:06→21:13)
[2017-04-09] MEDS: risperiDONE 2 MG TAB PO SCH ×2 (09:06→21:13)
[2017-04-09] MEDS: TOPIRAMATE (TopAMAX) 25 MG TAB PO SCH ×2 (09:06→21:13)
[2017-04-09] MEDS: hydrOXYzine 25 MG TAB PO SCH ×2 (09:06→17:14)
[2017-04-09] MEDS: CitaloPRAM (CeleXA) 20 MG TAB PO SCH (09:06)
[2017-04-09] MEDS: OXcarbazepine 300 MG TAB PO SCH ×2 (09:06→21:13)
[2017-04-09] MEDS: LOSARTAN 25 MG TAB PO SCH (09:06)
[2017-04-09] MEDS: ACETAMINOPHEN TAB 650MG DOSE (2X325MG) PO PRN (09:07)
[2017-04-09] MEDS: NICOTINE 21MG/24HR 1 EA TRANSDERMAL TD SCH (09:07)
[2017-04-09] MEDS: risperiDONE 1 MG TAB PO SCH (13:05)
[2017-04-09 18:11] VITALS: BP 138/70
--- NOTE | 2017-04-10 03:04 | CR ---
DATE OF CONSULTATION: 04/08/2017 TIME: 6 p.m. CONSULTING HEALTH CARE PROVIDER: Chanel Boss, registered nurse practitioner. CHIEF COMPLAINT: Chronic facial pain. HISTORY OF PRESENT ILLNESS: 57-year-old female patient with history of facial pain and depression. Patient was admitted due to her complaint of severe depression and expression of the severity of her condition and expressing that she may attempt a suicide due to her facial pain. Patient reports that according to her words, "it's not worth it to continue living with the severity of the pain." She says that she has tried in the past different medications and also injection therapy and the condition has persisted. She reports that her main pain is located around the left side of her face, although she has pain at the cranium, the right side of her face, the maxillary area. She describes the pain as continuous, aching, sharp, severe enough to affect her ability to concentrate. No medication, according to her, has been effective in the past. Also, she had been seen in the past by the neurosurgical service, who has performed some blocks with some pain relief, especially at the the occipital area. She explained that at some point a surgery was considered by the neurosurgical service. Patient has also pain in multiple areas of her body including the back and extremities, but her main complaint is the chronic facial pain and the pain over the occipital area. Patient denies unexplainable weight loss, fevers, chills, new changes in her urinary or bowel control. On reviewing the patient's medical chart, the patient has multiple admissions associated with this problem. Also, she has been seen by multiple services including neurosurgery, otolaryngology (ENT). In the past she had been seen also by our service. ALLERGIES: Include METOPROLOL, TETANUS TOXOID. PAST MEDICAL HISTORY: Includes: 1. Chronic migraines. 2. Trigeminal neuralgia. 3. Neck and back pain. 4. Depression. 5. Past history of lithium toxicity. 6. Diabetes mellitus. 7. High blood pressure. SURGICAL HISTORY: Includes cervical fusion in 2010. SOCIAL HISTORY: Patient is from [place]. She is on disability. She lives in her own apartment. She has contacts with her mother. PRESENT MEDICATIONS: Include: - risperidone - Celexa - Cozaar - Topamax - Cogentin - Glucophage - ibuprofen - Atarax - Tylenol - Percocet given only once - nicotine patch LABORATORIES: Show a white blood cell count of 7.3. Hematocrit is 41.9. Sodium is 141, potassium 3.7. Head CT done on 03/29/2017 shows symmetrical ventricles and sulci. No edema. No fluid collection. Basically a normal story. Maxillofacial CT on 11/23/2016 shows no evidence of mucosal disease or occlusions. No major pathology. There are multiple reports of multiple services that have seen Ms. Rodriguez in the past including neurosurgery, ENT, among others. OBJECTIVE: Heart rate is 77, respiratory rate 18, blood pressure 142/69, temperature is 98.2. Patient is alert, oriented times three and cooperative. Patient reports having pain over the facial area. She reports some tenderness, especially over the maxillary distribution of the trigeminal nerve over the left side, increased opening her mouth. Also, she reports pain over the right side. Some tenderness to touch. Patient's cranial nerves are grossly normal. There is no nystagmus. She can protrude the tongue midline. Patient denies disruption on hearing in any of her ears. There is tenderness the distribution of the ophthalmic maxillary and mandibular distribution of the trigeminal nerve in both sides, especially over the left side. There is some tenderness over the occipital area and also over the paraspinal muscle group over the neck and also the shoulders. ASSESSMENT: 1. Chronic facial pain. 2. Atypical facial pain. 3. Occipital neuralgia. 4. Trigeminal neuralgia. 5. Depression. 6. Bipolar condition. 7. Past history of lithium toxicity. 8. History of diabetes. 9. History of high blood pressure. 10. Past history of sleep apnea. PLAN: I discussed alternatives with the patient. At the moment, I would like to start her on oxcarbazepine/Trileptal and see the response with this medication. I would not advise to use opioids in the patient and I may consider the pain center's blocks starting over the occipital area and then consider some blocks over some of the distribution of the trigeminal nerve. Certainly, a complicated case. I may discuss the case also with the other services that have intervened with the patient to look for avenues to try to help Ms. Rodriguez, but for now we will start her on oxcarbazepine and reevaluate the case in the next few days. Questions were answered. Patient reports understanding and she agrees with the plan. Thank you for the consult. RENO
[2017-04-10] MEDS: IBUPROFEN 400 MG TAB PO SCH ×3 (05:59→11:59)
[2017-04-10 06:02] VITALS: BP 140/98
[2017-04-10 08:44] VITALS: BP 139/80
[2017-04-10] MEDS: metFORMIN (GLUCOPHAGE) 1000 MG TABLET PO SCH ×2 (08:49→17:02)
[2017-04-10] MEDS: NICOTINE 21MG/24HR 1 EA TRANSDERMAL TD SCH (08:49)
[2017-04-10] MEDS: LOSARTAN 25 MG TAB PO SCH (08:49)
[2017-04-10] MEDS: BENZTROPINE 1 MG TAB PO SCH ×2 (08:49→21:31)
[2017-04-10] MEDS: hydrOXYzine 25 MG TAB PO SCH ×2 (08:49→17:02)
[2017-04-10] MEDS: CitaloPRAM (CeleXA) 20 MG TAB PO SCH (08:49)
[2017-04-10] MEDS: OXcarbazepine 300 MG TAB PO SCH ×2 (08:49→21:31)
[2017-04-10] MEDS: TOPIRAMATE (TopAMAX) 25 MG TAB PO SCH ×2 (08:49→21:31)
[2017-04-10] MEDS: risperiDONE 2 MG TAB PO SCH ×2 (08:49→21:31)
[2017-04-10] MEDS: ACETAMINOPHEN TAB 650MG DOSE (2X325MG) PO PRN (10:12)
[2017-04-10] MEDS: risperiDONE 1 MG TAB PO SCH (13:17)
[2017-04-10] MEDS: IBUPROFEN 600 MG TAB PO SCH (17:03)
[2017-04-10 18:26] VITALS: BP 126/74
--- NOTE | 2017-04-11 02:50 | HPE ---
DATE OF ADMISSION: 04/08/2017 HISTORY OF PRESENT ILLNESS: Please refer to psychiatric history and evaluation for further details on this admission. This examination and history is intended for medical issues, which may need treatment, followup or consult on this 57-year-old female. ALLERGIES: METOPROLOL, TETANUS TOXOID. PRIMARY CARE PROVIDER: Dr. Ram. SOCIAL HISTORY: She is single. She lives in [place]. She smokes approximately 10 cigarettes per day. Ethyl alcohol (EtOH) none. Recreational drug use: None. FAMILY HISTORY: Noncontributory. PAST MEDICAL HISTORY: 1. Bipolar disorder. 2. History of previous lithium toxicity. 3. Abnormal EKG with first and second degree atrioventricular (AV) block. Lopressor discontinued. No further beta blockers recommended. 4. History of overdose (OD) with TCA and narcotics. No further TCA or narcotics recommended. 5. Hypertension, stable. 6. Non-insulin dependent diabetes type 2. 7. Obstructive sleep apnea, refused continuous positive airway pressure (CPAP), wears oxygen 2 liters nasal cannula at night. 8. Allergic rhinitis. 9. Chronic migraines. 10. Trigeminal neuralgia, seen by pain management, has been started on Trileptal. She feels it is helping. 11. Chronic neck and back pain, follows with pain management. PAST SURGICAL HISTORY: Cervical fusion 2010. LABORATORY STUDIES: WBC 7.3, hemoglobin 13.4, hematocrit 41.9, platelets 196. Sodium 140, potassium 3.7, chloride 109, CO2 22, nonfasting glucose 117. AST 39. REVIEW OF SYSTEMS: 10-system review was done. Her only complaint was of the trigeminal neuralgia, which she feels is significantly better since starting the Trileptal. PHYSICAL EXAMINATION: 57-year-old cooperative female in no acute distress. Height 65 inches, weight 97.4 kg, body mass index (BMI) 35.9. Blood pressure 139/80, pulse 78, respirations 18. Patient is alert and oriented times three. Pupils equal and react to light. Extraocular muscles intact. Cornea and sclerae clear. Conjunctivae were normal. No facial asymmetry. Pharynx, tongue and gums pink and moist. Tongue is midline. Neck is supple without lymphadenopathy. No thyromegaly, no goiter. Carotids 2+ without bruit. Chest clear to auscultation without wheeze or retraction. Heart is regular. Abdomen is benign. Bowel sounds positive. Genitourinary/rectal: Not done. Extremities show equal strength, full range of motion. No cyanosis, clubbing or edema. Peripheral pulses equal and palpable bilaterally. Skin is warm and dry. IMPRESSION/PLAN: 1. Psychiatric plan per psychiatry. 2. Trigeminal neuralgia. Continue with Trileptal. 3. Chronic back and neck pain. Continued followup with pain management. 4. History of hypertension. Blood pressure has been running slightly high. She is on losartan 25 per her primary care provider, Dr. Ram, who stopped her prior lisinopril. Will increase her to 50 mg by mouth daily. Monitor for improvement. 5. History of non-insulin dependent diabetes type 2. Consistent carbohydrate diet. Fingerstick blood sugars twice a day. 6. History of obstructive sleep apnea. Refuses continuous positive airway pressure (CPAP). Continue as at home oxygen 2 liters nasal cannula. Continue followup with primary care provider, Dr. Ram.
[2017-04-11] MEDS: IBUPROFEN 600 MG TAB PO SCH ×5 (06:24→23:08)
[2017-04-11 07:14] VITALS: BP 165/90
[2017-04-11] MEDS: hydrOXYzine 25 MG TAB PO SCH ×2 (08:52→16:50)
[2017-04-11] MEDS: metFORMIN (GLUCOPHAGE) 1000 MG TABLET PO SCH ×2 (08:52→17:01)
[2017-04-11] MEDS: NICOTINE 21MG/24HR 1 EA TRANSDERMAL TD SCH (08:52)
[2017-04-11] MEDS: OXcarbazepine 300 MG TAB PO SCH ×2 (08:52→20:56)
[2017-04-11] MEDS: risperiDONE 2 MG TAB PO SCH ×2 (08:52→20:56)
[2017-04-11] MEDS: BENZTROPINE 1 MG TAB PO SCH ×2 (08:53→20:56)
[2017-04-11] MEDS: CitaloPRAM (CeleXA) 20 MG TAB PO SCH (08:53)
[2017-04-11] MEDS: LOSARTAN 50 MG TAB PO SCH (08:53)
[2017-04-11] MEDS: TOPIRAMATE (TopAMAX) 25 MG TAB PO SCH ×2 (08:53→20:56)
[2017-04-11 08:56] VITALS: BP 130/84
[2017-04-11] MEDS: risperiDONE 1 MG TAB PO SCH (12:06)
--- NOTE | 2017-04-11 12:41 | MHIPN ---
DATE OF SERVICE: ____04/09/2017 Patient is a 57-year-old female who has multiple admissions to this unit for suicidal ideation (SI) related to pain. Patient has long history of trigeminal neuralgia and related pain, which was causing mood instability and suicidal ideation. Patient has history of numeral psychiatric hospitalizations dating back to adolescence, was last admitted January of 2017 due to exacerbation of bipolar symptoms and suicidal ideation, has a history of medication and treatment noncompliance. Patient indicates her neurologist began taking her off of Depakote and putting her on Tegretol approximately 3 months ago, indicates symptoms of anxiety, depression, mood liability, helplessness and hopelessness, reduced concentration, poor sleep, reduced appetite and suicidal ideation have exacerbated over the past 3 months. Patient states she has been experiencing suicidal ideation with no plan or intent, reports she has a history of suicide attempts [address] of cutting of wrist. SUBJECTIVE: Patient reports having trigeminal neuralgia, feeling "really bad." Reports pain in her forehead, sinus congestion and extreme tiredness. OBJECTIVE: This engineering technical writer was unable to assess patient because she was extremely sedated. Also, her vital signs were always within the normal range. The patient was seen in her room, lying in bed, face lying down, eyes closed, extremely drowsy with slurred speech. As soon as she started talking to this engineering technical writer, she went back to sleep. This engineering technical writer went back twice and she was sleeping. ASSESSMENT: Patient seems to be very sleepy, probably she has not been sleeping before and now that she has been receiving medications she has been able to relax a little bit more and knowing that she is being taken care of at the hospital maybe her anxiety levels have decreased a little bit. According to history, she has been noncompliant with medications and now that she is taking them she probably feels relief to her trigeminal neuralgia. Will communicate with provider on Tuesday to evaluate the possibility of decreasing some of her medications if it is necessary, but will reassess tomorrow and will see if patient continues to be very sleepy. Will monitor closely. RENO
--- NOTE | 2017-04-11 15:01 | MHIPNPDOC ---
[facility] Progress Note Progress Note DATE OF SERVICE: 04/11/17 HISTORY: Patient is a 57-year-old female, who has multiple admissions to this unit for SI related to pain. Pt has long h/o trigeminal neuralgia related pain which was causing mood instability and suicidal ideation. Patient has history of numerous psychiatric hospitalizations dating back to adolescence, was last admitted January of 2017 due to exacerbation of bipolar symptoms and suicidal ideation, has a history of medication and treatment noncompliance. Patient states she has been experiencing suicidal ideation with no plan or intent, reports she has a history of suicide attempts [address] of cutting left wrist. Patient indicates when she was taking Depakote she felt " emotionally in control," adds her pain was better managed on Depakote. [employer] met with patient today in lieu of regular provider for assessment purposes on inpatient unit. Patient appears considerably more alert today compared with description noted in previous progress note entries, is engageable , is up out of bed and visible on unit. Patient indicates she has been "locked out of my room like a child by the other doctor because they felt I was spending too much time in bed." Patient indicates she was attending groups but was in room between groups, and makes request for room to be unlocked. Consult completed with attending who indicated room to remain locked, patient was informed and responded appropriately. Patient rates current anxiety level is 6/ 10, depression 5/10, attributes symptoms to trigeminal neuralgia associated pain , rates her pain level as 4/10 and describes pain as "manageable." Patient denies suicidal and homicidal ideation, denies auditory and visual hallucinations, denies urge to engage in self injurious behavior. Patient indicates current medication regimen is working well, denies need for dosing adjustment, and denies medication side effects. Patient reports energy level remains low, denies challenges to concentration and focus, states appetite is stable, describes sleep as "pretty good," is aware she has PRN sleep medication available to her if needed. Patient utilized PRN Atarax this morning for increase in anxiety symptoms, notes medication worked with good effect. Patient' s main concern today is whether she will be discharged in time for a Tuesday outpatient behavioral health appointment, presents with no signs of acute distress at time of interaction. VITALS: See below NEW TEST RESULTS: 04/08/17 pain consult completed, refer to EMR for details MEDICAL/SURGICAL HISTORY: (history of previous lithium toxicity) Abnormal EKG/First degree AVB/ Second degree HB observed with BB - Lopressor d/ cd 08/26- no further Beta blockers recommended) History of OD with TCA and Narcotic- No further TCA or narcotic recommended. HTN DM- Diet controlled h/o STERLING- Refused CPAP Obesity- BMI 35.61 allergic rhinitis H/O Recurrent sinusitis/OM Chronic Migraine RIBEIRO- Seen By Dr White-tried on several medications including Indocin, Topamax, baclofen, Percocet, Medrol, Neurontin, Cymbalta. Trigeminal neuralgia/TMJ- referred to ENT in past. Chronic neck pain- Seen By Pain Mgmt/Dr Sepulveda. H/O Occipital injection Dr Sepulveda Chronic back pain/Chronic pain- [facility] mgmt in past. Cervical Fusion 2010 MRI brain 09/27/15 minimal small vessel disease/minimal volume loss MRA brain 11/24 mild atherosclerosis ICAs bilaterally MRI cervical spine 05/25 status post C5-7 fusion, cervical spondylosis C4-5 6-7, no cord compression CT brain 01/27/16- minimal atrophy temporal lobes/minimal left mastoid mucosal thickening/no acute findings. CT Maxillofacial 11/26. No CT evidence of significant mucosal disease, occlusion , or stenosis of the OMCs or destructive bone changes in the facial bones. Septum midline. No acute or chronic sinusitis at this time. CURRENT MEDICATIONS: See below MENTAL STATUS EXAMINATION: General appearance: Patient is a 57-year old female, who engageable, cooperative , makes fair eye contact, appears disheveled, dressed in hospital clothing, ambulates with steady gait, appears stated age Speech: Of normal rate, rhythm, volume, spontaneous, coherent Thought processes: Linear, logical, goal-directed Thought content: Rational, logical, no tangentiality or paranoia noted, perseverative to discharge Abstract reasoning and computation: Appears intact Description of associations: Intact Description of abnormal or psychotic thoughts: Denies suicidal and homicidal ideation, denies auditory or visual hallucinations, does not appear to be responding to internal stimuli, does not endorse bizarre or paranoid ideation, denies preoccupation with violence or obsessions Judgment: fair. Insight: limited. Orientation: A and O 3 Recent and remote memory: Appear within normal limits Attention span and concentration: Appears within normal limits Fund of knowledge: Adequate Mood: "Still a little depressed but that's just because of my trigeminal neuralgia." Patient appears depressed and anxious, no mood lability noted Affect: Blunted, no brightening DIAGNOSES: Bipolar disorder, rule out anxiety disorder, rule out psychiatric disorder related to other medical condition ASSESSMENT: Patient appears to be adjusting to unit, has been more visible, participating in unit activities, has been cooperative with staff and has presented with no overt behavior management challenges. Over the weekend attending ordered patient to be locked out of her room during the day in effort to encourage patient to be up and out of bed, patient today reports notable improvement to energy level and has been participating in unit programming. Patient indicates current medication regimen is effective and she denies need for dosing changes or changes to medications. Patient denies current suicidal or homicidal ideation and verbalizes awareness of how to access supportive services on the unit if needed. Will continue to monitor patient's response to medications and for medication side effects. Patient's regular provider will return tomorrow and will evaluate patient's safety, resolution of suicidal ideation, and discharge readiness. Patient indicates when prepared for discharge she would like to return home where she lives alone, notes she has strong support system in the area comprised of mother and sister. Patient states she intends to resume outpatient psychotherapy and medication management services upon discharge. MANAGEMENT PLAN: Continue current medication regimen Maintain safety precautions Patient to attend groups and participate in unit programming to develop coping strategies Engage patient in discharge planning process and arrange meeting with support system to ensure safe discharge planning when appropriate Patient to follow up with PCM upon discharge TIME SPENT: 25 minutes Vital Signs Vital Signs Date Time Temp Pulse Resp B/P (MAP) Pulse Ox O2 Delivery O2 Flow Rate FiO2 04/11/17 08:56 130/84 (99) 04/11/17 07:14 96.9 62 20 04/08/17 13:49 97 Room Air Laboratory Data 24H Labs Laboratory Tests 2 04/10/17 17:00: Bedside Glucose (Misc Panel) 145H Current Medications Current Medications Acetaminophen (Tylenol Tab) 650 mg Q6HP PRN PO HEADACHE or DISCOMFORT Last administered on 04/10/17t 10:12; Start 04/08/17 at 13:15; Stop 05/08/17 at 13:14 Al Hydrox/Mg Hydrox/Simethicone (Mylanta) 30 ml Q4HP PRN PO HEARTBURN/ INDIGESTION; Start 04/08/17 at 13:15; Stop 05/08/17 at 13:14 Benztropine Mesylate (Cogentin) 1 mg BID PO Last administered on 04/11/17 08: 53; Start 04/08/17 at 21:00; Stop 05/08/17 at 20:59 Citalopram Hydrobromide (CeleXA) 20 mg DAILY PO Last administered on 04/11/17 08:53; Start 04/09/17 at 09:00; Stop 05/09/17 at 08:59 Home Med (Med Rec Complete!) ASDIRECTED XX ; Start 04/08/17 at 13:45; Stop at 13:45; Status DC Hydroxyzine HCl (Atarax) 25 mg BID@0900,1700 PO Last administered on 04/11/17 08:52; Start 04/08/17 at 17:00; Stop 05/08/17 at 16:59 Ibuprofen (Advil) 400 mg Q6H PO Last administered on 04/10/17 11:59; Start at 18:00; Stop 04/10/17 at 12:38; Status DC Ibuprofen (Advil) 600 mg Q6H PO Last administered on 04/11/17 11:31; Start at 18:00; Stop 05/10/17 at 17:59 Losartan Potassium (Cozaar) 25 mg DAILY PO Last administered on 04/10/17 08:49 ; Start 04/09/17 at 09:00; Stop 04/10/17 at 21:20; Status DC Losartan Potassium (Cozaar) 50 mg QAM PO Last administered on 04/11/17 08:53; Start 04/11/17 at 09:00; Stop 05/11/17 at 08:59 Magnesium Hydroxide (Milk Of Magnesia) 30 ml DAILYPRN PRN PO CONSTIPATION; Start 04/08/17 at 13:15; Stop 05/08/17 at 13:14 Metformin HCl (Glucophage) 1,000 mg BID@08,18 PO Last administered on 08:52; Start 04/08/17 at 18:00; Stop 05/08/17 at 17:59 Nicotine (Nicoderm Cq 21mg) 1 patch DAILY TD Last administered on 04/11/17 08: 52; Start 04/08/17 at 09:00; Stop 05/08/17 at 08:59 Oxcarbazepine (Trileptal) 300 mg BID PO Last administered on 04/11/17 08:52; Start 04/08/17 at 21:00; Stop 05/08/17 at 20:59 Risperidone (RisperDAL) 1 mg QPM@1300 PO Last administered on 04/11/17 12:06; Start 04/09/17 at 13:00; Stop 05/09/17 at 12:59 Risperidone (RisperDAL) 2 mg BID PO Last administered on 04/11/17 08:52; Start 04/08/17 at 21:00; Stop 05/08/17 at 20:59 Topiramate (TopAMAX) 25 mg BID PO Last administered on 04/11/17 08:53; Start 04/08/17 at 21:00; Stop 05/08/17 at 20:59 Trazodone HCl (Desyrel) 50 mg QHSP PRN PO INSOMNIA; Start 04/08/17 at 13:15; Stop 05/08/17 at 13:14 Allergies Coded Allergies: Tetanus Toxoid (Verified Allergy, Unknown, 01/31/17) Metoprolol (Verified Adverse Reaction, Severe, second degree heart block, 01/31/17) Jenny Salas Apr 11, 2017 15:01
[2017-04-11 18:00] VITALS: BP 130/73
--- NOTE | 2017-04-11 20:17 | MHIPN ---
DATE: 04/10/2017 57-year-old female with history of multiple admission to the inpatient mental health unit, bipolar 2 disorder, chronic pain, trigeminal neuralgia. The patient reports that her pain is severe, she has a sense that something is vibrating on the right side of her face. Describes tightness around her face and neck. Focuses on physical complaints. Regarding her psychiatric problems, she says that she is on her best with lithium and Prolixin. She has tried Depakote, but it did not work. It was exactly because the Depakote did not work for her, that she was prescribed Topamax. She says that she feels her head is "snapping". Denies suicidal ideation. OBJECTIVE: The patient is alert and oriented times three. Very sleepy, with psychomotor retardation, slurred speech. Her thought process is not clear enough due to multiple medications, her thought content is regarding her problems with trigeminal neuralgia and chronic pain. She denies suicidal or homicidal ideation, denies psychosis. Her attention and concentration are limited, her memory is limited, abstract thinking and computation is limited. Her insight and judgment are very poor and her impulse control is fair. ASSESSMENT: The patient spent the entire day sleeping yesterday, when this bond underwriter to assess her it was not possible because she spoke two to three phrases, very short, and went back to sleep. This afternoon she was requesting to be able to go back to her room, but this bond underwriter told it was better for her to sit at the lounge and engage in conversations, with other people so that she would not be focusing too much on her trigeminal neuralgia pain. The patient could have somatization disorder, pain management team will be back to assess her this week and a more clear picture will be presented regarding her pain management. PLAN: Continue with the same medications and encourage her to keep outside of her room and engage in activities and groups with the other patient's. Will followup.
[2017-04-11] MEDS: ACETAMINOPHEN TAB 650MG DOSE (2X325MG) PO PRN (20:57)
[2017-04-12] MEDS: IBUPROFEN 600 MG TAB PO SCH ×2 (05:49→11:01)
[2017-04-12 06:00] VITALS: BP 194/81
[2017-04-12 06:30] VITALS: BP 152/72
[2017-04-12] MEDS: OXcarbazepine 300 MG TAB PO SCH (08:33)
[2017-04-12] MEDS: TOPIRAMATE (TopAMAX) 25 MG TAB PO SCH (08:33)
[2017-04-12] MEDS: metFORMIN (GLUCOPHAGE) 1000 MG TABLET PO SCH (08:33)
[2017-04-12] MEDS: hydrOXYzine 25 MG TAB PO SCH (08:33)
[2017-04-12] MEDS: CitaloPRAM (CeleXA) 20 MG TAB PO SCH (08:33)
[2017-04-12] MEDS: BENZTROPINE 1 MG TAB PO SCH (08:33)
[2017-04-12] MEDS: risperiDONE 2 MG TAB PO SCH (08:33)
[2017-04-12] MEDS: NICOTINE 21MG/24HR 1 EA TRANSDERMAL TD SCH (08:34)
[2017-04-12 08:35] VITALS: BP 176/85
[2017-04-12] MEDS: LOSARTAN 50 MG TAB PO SCH (08:35)
[2017-04-12] MEDS ORDERED: OXCA300T PO (11:04)
[2017-04-12] MEDS: risperiDONE 1 MG TAB PO SCH (13:00)
--- NOTE | 2017-04-12 13:54 | MHDSPDOC ---
[facility] Discharge Summary Discharge Summary DATE OF ADMISSION: Apr 08, 2017 at 13:03 DATE OF DISCHARGE: Apr 12, 2017 at 13:00 DISCHARGE DIAGNOSES: bipolar II disorder chronic Pain REASON FOR ADMISSION: CHIEF COMPLAINT: "suicide is my only option with this pain." HISTORY OF THE PRESENT ILLNESS: Patient is a 57-year-old female, who has multiple admissions to this unit for SI related to pain. Pt has long h/o trigeminal neuralgia related pain which was causing mood instability and suicidal ideation. Patient has history of numerous psychiatric hospitalizations dating back to adolescence, was last admitted January of 2017 due to exacerbation of bipolar symptoms and suicidal ideation, has a history of medication and treatment noncompliance. Patient indicates her neurologist began taking her off of Depakote and putting her on Tegretol approximately 3 months ago, indicates symptoms of anxiety, depression, mood lability, helplessness and hopelessness, reduced concentration, poor sleep, reduced appetite, and suicidal ideation have exacerbated over the past 3 months. Patient states she has been experiencing suicidal ideation with no plan or intent, reports she has a history of suicide attempts [address] of cutting left wrist. Patient indicates when she was taking Depakote she felt "emotionally in control," adds her pain was better managed on Depakote. CONSULTANTS INVOLVED: Labs, Medicine, Psychiatry, Pain Consult. TREATMENT AND PROGRESS ON THE UNIT : Pt was admitted late Tuesday afternoon. She was very tired and declined a 1:1 with provider. Provider explained that due to the weekend coming up she would not be returning until Tuesday. pt still declined 1:1. Medications were verified with patient, and ordered per med reconciliation and pts report. She asked for a pain consult which was requested Tuesday. Pt slept after being admitted. Finger sticks were monitored daily. Pt was asymptomatic for T2DM. HOSPITAL COURSE: Pain consult was completed and oxcarbazepine 300 mg bid was ordered for her. Pt stated today that medication appears to be working. She says she can tolerate some pain. She adds "I would never really ever do anything to harm myself. Pt has a long psychiatric history and numerous admissions. She is very dependent on her mother for emotional support. Pt only attended programming after the staff decided to lock her room for much of the day-time hours when groups are held. Pt would benefit from the milieu and attending programming can help to improve her self-reliance and confidence. Pt slept well on the unit. She ate and drank at meal times. No behavior challenges were presented other than laying in bed for 15-18 hours a day. DISCHARGE ASSESSMENT:Pt's trigeminal nerve pain is improving and pt is satisfied with the goals she has achieved from this admission. She states unequivocally that she is not a danger to self or others and she has not been contemplating suicide. 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 She seems content and future oriented. Her appts were verified for both Psychiatry and PCP prior to leaving. Carri states her outpatient psychiatrist is adjusting her medications and she is very pleased with the care she is receiving from him. For this reason her risperidone was not lowered. She does admit that the Topamax makes her drowsy and "foggy feeling" in her mind but she is coping. She feels her medications are safe and helpful to her. Pts mother was informed of her discharge. She left the hospital for home via medicaid cab. MENTAL STATUS EXAMINATION ON DISCHARGE: Patient is a 57-year old female, who is medium height, blonde hair, good eye contact, soft voice, low tone, pleasant, dressed in street clothes. Speech is spontaneous and clear. Language skills are intact Thought processes including:goal directed. Thought content: appropriate - discharge oriented. Abstract reasoning, and computation: good. Description of associations: good. Description of abnormal or psychotic thoughts: not present. Judgment: good. Insight: limited Orientation to person, place, time and situation. Recent and remote memory: appears intact. Attention span and concentration: good. Fund of knowledge: Full. Mood: euthymic. Affect: calm, congruent. MEDICATIONS ON DISCHARGE: - oxcarbazepine 300 mg bid, pt to see psychiatrist tomorrow so no other meds required. no change to Celexa, risperidone, trazodone, topiramate, Cogentin. Medical meds unchanged. PLAN/FOLLOWUP ARRANGEMENTS: [facility] outpatient 04/14, PCP 04/15. The amount of time spent in the coordination of care for this patient was approximately 30 minutes. Vital Signs/I&Os Vital Signs Date Time Temp Pulse Resp B/P (MAP) Pulse Ox O2 Delivery O2 Flow Rate FiO2 04/12/17 08:35 176/85 04/12/17 06:30 99 Room Air 04/12/17 06:00 99.0 59 16 Laboratory Data Labs 24H Laboratory Tests 2 04/11/17 16:47: Bedside Glucose (Misc Panel) 197H 04/12/17 08:30: Bedside Glucose (Misc Panel) 142H Medications Scheduled (Risperidone) 2 Mg Tab, 2 MG PO BID, (Reported) TAKES MORNING AND BEDTIME (Risperidone) 1 Mg Tab, 1 MG PO DAILY, (Reported) TAKES IN THE AFTERNOON Benztropine Mesylate (Benztropine Mesylate) 1 Mg Tab, 1 MG PO BID, (Reported) Citalopram Hydrobromide (Citalopram Hydrobromide) 20 Mg Tab, 20 MG PO DAILY, ( Reported) Cyanocobalamin (Vitamin B-12) 1,000 Mcg Tab, 1,000 MCG PO DAILY, (Reported) Hydroxyzine Pamoate (Hydroxyzine Pamoate) 25 Mg Cap, 25 MG PO BID, (Reported) Losartan Potassium (Losartan Potassium) 25 Mg Tab, 25 MG PO DAILY, (Reported) Metformin Hydrochloride (Metformin HCl) 1,000 Mg Tab, 1,000 MG PO BID, (Reported ) Oxcarbazepine (Oxcarbazepine) 300 Mg Tab, 300 MG PO BID for MOOD for 7 Days, #14 Topiramate (Topiramate) 25 Mg Tab, 25 MG PO BID, (Reported) Scheduled PRN Ibuprofen (Ibuprofen) 200 Mg Tab, 400 MG PO QID PRN for PAIN, (Reported) Allergies Coded Allergies: Tetanus Toxoid (Verified Allergy, Unknown, 01/31/17) Metoprolol (Verified Adverse Reaction, Severe, second degree heart block, 01/31/17) Chanel Boss Apr 12, 2017 13:54
== END 2017-04-12 13:00 | disposition home or self-care (01) | DRG 885 ==
LOC: M ED 10:25 → M ED INP 13:03 → M PSY 13:45
PROVIDERS: ADMIT Psychiatry & Neurology Psychiatry; ATTEND Psychiatry & Neurology Psychiatry
DX: F31.81 Bipolar II disorder (principal); R45.851 Suicidal ideations; F17.210 Nicotine dependence, cigarettes, uncomplicated; G89.29 Other chronic pain; E11.9 Type 2 diabetes mellitus without complications; I10 Essential (primary) hypertension; M54.2 Cervicalgia; M54.81 Occipital neuralgia; G50.0 Trigeminal neuralgia; Z79.899 Other long term (current) drug therapy; Z79.84 Long term (current) use of oral hypoglycemic drugs; Z88.8 Allergy status to other drugs, medicaments and biological substances; Z88.7 Allergy status to serum and vaccine; Z91.5 Personal history of self-harm; G47.33 Obstructive sleep apnea (adult) (pediatric); Z99.81 Dependence on supplemental oxygen

== ENCOUNTER 2017-05-21 04:16 | Emergency (ER) | payer MEDICARE, MEDICAID ==
[~2017-05-21] VITALS: Ht 165.1 cm; Wt 97.0 kg
[~2017-05-21 04:16] MED LIST changes: +CARB1TAB20 PO; +CITA20TA4 PO; +FURO40TA2 PO; +HYDR1CAP25 PO; +IBUP-1114 PO; +IBUPOTC PO; +OXCA300T PO; +RISP2TAB3 PO; +TOPI25TA10 PO; +VITA10002 PO
[2017-05-21] MEDS ORDERED: EXCETAB81 PO (04:51)
[2017-05-21] MEDS ORDERED: LASI40TA PO (04:51)
[2017-05-21] MEDS ORDERED: AUGM875T28 PO (04:51)
[2017-05-21] MEDS ORDERED: KETOROLAC 30 MG/ML VIAL (J1885) IV ONE (06:45)
[2017-05-21] MEDS ORDERED: ONDANSETRON 4MG/2ML VIAL (J2405) IV ONE (06:45)
[2017-05-21] MEDS ORDERED: MORPHINE 4 MG/ML 1ML SYRINGE IV PRN (06:45)
[2017-05-21 07:21] LABS: BASO % 0.7 % (0.0-1.0); EOS # 0.4 K/mm3 (0.0-0.50); EOS % 4.9 % (0.0-3.0); LARGE UNSTAINED CELL # 0.1 K/mm3 (0.0-0.4); LARGE UNSTAINED CELL % 1.3 % (0.0-4.0); LYMPH # 2.5 K/mm3 (1.5-4.5); LYMPH % 34.8 % (24.0-44.0); MEAN CORPUSCULAR HEMOGLOBIN 30.7 pg (27.0-33.0); MEAN CORPUSCULAR HGB CONC 35.1 g/dl (32.0-36.5); MEAN CORPUSCULAR VOLUME 87.4 fl (80.0-96.0); MONO # 0.3 K/mm3 (0.0-0.8); MONO % 4.1 % (0.0-5.0); NEUTROPHILS # 3.9 K/mm3 (1.8-7.7); NEUTROPHILS % 54.2 % (36.0-66.0); PLATELET COUNT, AUTOMATED 218 k/mm3 (150-450); RED CELL DISTRIBUTION WIDTH 13.8 % (11.5-14.5); WHITE BLOOD COUNT 7.3 K/mm3 (4.0-10.0)
[2017-05-21 07:53] LABS: ANION GAP 11 MEQ/L (8-16); BLOOD UREA NITROGEN 13 MG/DL (7-18); CALCIUM LEVEL 9.3 MG/DL (8.5-10.1); CARBON DIOXIDE LEVEL 22 MEQ/L (21-32); CHLORIDE LEVEL 108 MEQ/L (98-107); CREATININE FOR GFR 0.66 MG/DL (0.55-1.02); GLOMERULAR FILTRATION RATE > 60.0 (>51); GLUCOSE, FASTING 102 MG/DL (70-105); POTASSIUM SERUM 3.9 MEQ/L (3.5-5.1); SODIUM LEVEL 141 MEQ/L (136-145)
[2017-05-21 08:35] VITALS: BP 173/79
== END 2017-05-21 08:36 | disposition home or self-care (01) ==
LOC: M ED 04:16
DX: G89.4 Chronic pain syndrome (principal); G43.909 Migraine, unspecified, not intractable, without status migrainosus; G50.0 Trigeminal neuralgia; F31.9 Bipolar disorder, unspecified
CPT/HCPCS: 80048; 85025; 86140; 96374; 96375; 99284; J1885; J2405; J3360

== ENCOUNTER → 2017-06-01 | Outpatient (CLI) | payer MEDICARE, MEDICAID ==
[~2017-06-01] MED LIST changes: +ABIL1TAB13 PO; +EXCETAB81 PO; +LASI40TA PO
[2017-06-01 19:01] LABS: BASO % 0.5 % (0.0-1.0); EOS # 0.2 K/mm3 (0.0-0.50); EOS % 1.5 % (0.0-3.0); LARGE UNSTAINED CELL # 0.1 K/mm3 (0.0-0.4); LARGE UNSTAINED CELL % 1.3 % (0.0-4.0); LYMPH # 2.5 K/mm3 (1.5-4.5); LYMPH % 24.3 % (24.0-44.0); MEAN CORPUSCULAR HEMOGLOBIN 30.2 pg (27.0-33.0); MEAN CORPUSCULAR HGB CONC 34.8 g/dl (32.0-36.5); MEAN CORPUSCULAR VOLUME 86.8 fl (80.0-96.0); MONO # 0.5 K/mm3 (0.0-0.8); MONO % 4.4 % (0.0-5.0); NEUTROPHILS # 7.1 K/mm3 (1.8-7.7); NEUTROPHILS % 68.1 % (36.0-66.0); PLATELET COUNT, AUTOMATED 226 k/mm3 (150-450); RED CELL DISTRIBUTION WIDTH 14.1 % (11.5-14.5); WHITE BLOOD COUNT 10.4 K/mm3 (4.0-10.0)
[2017-06-01 19:32] LABS: ANION GAP 11 MEQ/L (8-16); BLOOD UREA NITROGEN 15 MG/DL (7-18); CALCIUM LEVEL 10.5 MG/DL (8.5-10.1); CARBON DIOXIDE LEVEL 26 MEQ/L (21-32); CHLORIDE LEVEL 103 MEQ/L (98-107); CREATININE FOR GFR 0.83 MG/DL (0.55-1.02); GLOMERULAR FILTRATION RATE > 60.0 (>51); GLUCOSE, FASTING 104 MG/DL (70-105); POTASSIUM SERUM 3.7 MEQ/L (3.5-5.1); SODIUM LEVEL 140 MEQ/L (136-145)
== END ==
LOC: M SMT 14:19
PROVIDERS: ATTEND Internal Medicine Cardiovascular Disease
DX: R07.9 Chest pain, unspecified (principal); R06.02 Shortness of breath

== ENCOUNTER 2017-06-17 05:38 | Emergency (ER) | payer MEDICARE, MEDICAID ==
[~2017-06-17] VITALS: Ht 165.1 cm; Wt 100.0 kg
[~2017-06-17 05:38] MED LIST changes: -ABIL1TAB13 PO
[2017-06-17 05:46] VITALS: BP 191/93
[2017-06-17] MEDS ORDERED: ABIL1TAB13 PO (05:48)
[2017-06-17] MEDS ORDERED: carBAMazepine 200 MG TAB PO ONE (06:00)
[2017-06-17] MEDS ORDERED: diazePAM 5 MG TAB PO ONE (06:00)
[2017-06-17] MEDS ORDERED: KETOROLAC 60 MG/2 ML VIAL (J1885) IM ONE (06:00)
== END 2017-06-17 06:20 | disposition home or self-care (01) ==
LOC: M ED 05:38
DX: M54.2 Cervicalgia (principal); G89.29 Other chronic pain; F19.20 Other psychoactive substance dependence, uncomplicated; E11.9 Type 2 diabetes mellitus without complications; F17.210 Nicotine dependence, cigarettes, uncomplicated
CPT/HCPCS: 96372; 99283; J1885

== ENCOUNTER 2017-09-28 11:38 | Emergency (ER) | payer MEDICARE, MEDICAID ==
[2017-09-28] MEDS: MORPHINE 4 MG/ML 1ML SYRINGE IV (13:54)
[2017-09-28] MEDS: NS 1,000 ML IV (13:55)
[2017-09-28] MEDS: ONDANSETRON 4MG/2ML VIAL (J2405) IV (13:55)
[2017-09-28 13:58] LABS: BASO # 0.1 10^3/uL (0.0-0.2); BASO % 0.7 % (0.0-1.0); EOS # 0.3 10^3/uL (0.0-0.50); EOS % 2.8 % (0.0-3.0); HEMATOCRIT 45.2 % (36.0-47.0); HEMOGLOBIN 15.3 g/dl (12.0-16.0); IMMATURE GRANULOCYTE # 0.1 10^3/uL (0-0); IMMATURE GRANULOCYTE % 0.5 % (0-0); LYMPH # 2.6 10^3/uL (1.5-4.5); LYMPH % 25.6 % (24.0-44.0); MEAN CORPUSCULAR HEMOGLOBIN 28.5 pg (27.0-33.0); MEAN CORPUSCULAR HGB CONC 33.8 g/dl (32.0-36.5); MEAN CORPUSCULAR VOLUME 84.2 fl (80.0-96.0); MONO # 0.5 10^3/uL (0.0-0.8); NEUTROPHILS # 6.5 10^3/uL (1.8-7.7); NEUTROPHILS % 65.4 % (36.0-66.0); PLATELET COUNT, AUTOMATED 270 10^3/uL (150-450); RED BLOOD COUNT 5.37 10^6/uL (4.00-5.40); RED CELL DISTRIBUTION WIDTH 14.1 % (11.5-14.5)
[2017-09-28 14:03] LABS: APPEARANCE, URINE HAZY (CLEAR); BACTERIA, URINE AUTO NEGATIVE (NEGATIVE); BILIRUBIN, URINE AUTO NEGATIVE (NEGATIVE); BLOOD, URINE BLOOD NEGATIVE (NEGATIVE); COLOR, URINE YELLOW (YELLOW); GLUCOSE, URINE (UA) AUTO 3+ mg/dL (NEGATIVE); KETONE, URINE AUTO NEGATIVE (NEGATIVE); LEUKOCYTE ESTERASE, URINE AUTO 1+ (NEGATIVE); MUCUS, URINE SMALL (NEGATIVE); NITRITE, URINE AUTO NEGATIVE (NEGATIVE); PROTEIN, URINE AUTO 3+ mg/dL (NEGATIVE); RBC, URINE AUTO 4 /HPF (0-3); SPECIFIC GRAVITY URINE AUTO 1.014 (1.002-1.035); SQUAMOUS EPITHELIAL CELL UR AU 3 /HPF (0-6); UROBILINOGEN, URINE AUTO 0.2 mg/dL (0.0-2.0); WBC, URINE AUTO 7 /HPF (0-3)
[2017-09-28 14:25] LABS: ERYTHROCYTE SEDIMENTATION RATE 25 mm/hr (0-30)
[2017-09-28 14:30] LABS: ANION GAP 8 MEQ/L (8-16); BLOOD UREA NITROGEN 11 MG/DL (7-18); CALCIUM LEVEL 10.2 MG/DL (8.5-10.1); CARBON DIOXIDE LEVEL 26 MEQ/L (21-32); CHLORIDE LEVEL 103 MEQ/L (98-107); CREATININE FOR GFR 0.74 MG/DL (0.55-1.02); GLOMERULAR FILTRATION RATE > 60.0 (>51); GLUCOSE, FASTING 201 MG/DL (70-105); POTASSIUM SERUM 4.3 MEQ/L (3.5-5.1); SODIUM LEVEL 137 MEQ/L (136-145)
[2017-09-28] MEDS: KETOROLAC 30 MG/ML VIAL (J1885) IV (14:49)
[2017-09-28] MEDS: tiZANidine 4 MG TAB PO (14:49)
== END 2017-09-28 16:18 | disposition home or self-care (01) ==
LOC: M ED 11:38
DX: G44.209 Tension-type headache, unspecified, not intractable (principal); E11.9 Type 2 diabetes mellitus without complications; I10 Essential (primary) hypertension; J44.9 Chronic obstructive pulmonary disease, unspecified; E78.00 Pure hypercholesterolemia, unspecified; F41.9 Anxiety disorder, unspecified; F33.9 Major depressive disorder, recurrent, unspecified; G89.29 Other chronic pain; M54.9 Dorsalgia, unspecified; K21.9 Gastro-esophageal reflux disease without esophagitis; G50.0 Trigeminal neuralgia; G47.30 Sleep apnea, unspecified; Z98.1 Arthrodesis status; Z79.899 Other long term (current) drug therapy; Z79.84 Long term (current) use of oral hypoglycemic drugs; Z88.7 Allergy status to serum and vaccine; Z88.8 Allergy status to other drugs, medicaments and biological substances; F17.210 Nicotine dependence, cigarettes, uncomplicated
CPT/HCPCS: J2405

== ENCOUNTER → 2017-10-03 | Outpatient (REF) | payer MEDICARE, MEDICAID ==
[2017-10-03 13:51] LABS: BASO % 0.5 % (0.0-1.0); EOS # 0.3 10^3/uL (0.0-0.50); EOS % 3.9 % (0.0-3.0); HEMATOCRIT 44.8 % (36.0-47.0); HEMOGLOBIN 14.9 g/dl (12.0-16.0); IMMATURE GRANULOCYTE % 0.4 % (0-0); LYMPH # 2.4 10^3/uL (1.5-4.5); LYMPH % 28.7 % (24.0-44.0); MEAN CORPUSCULAR HEMOGLOBIN 28.7 pg (27.0-33.0); MEAN CORPUSCULAR HGB CONC 33.3 g/dl (32.0-36.5); MEAN CORPUSCULAR VOLUME 86.3 fl (80.0-96.0); MONO # 0.5 10^3/uL (0.0-0.8); MONO % 5.8 % (0.0-5.0); NEUTROPHILS % 60.7 % (36.0-66.0); PLATELET COUNT, AUTOMATED 229 10^3/uL (150-450); RED BLOOD COUNT 5.19 10^6/uL (4.00-5.40); RED CELL DISTRIBUTION WIDTH 14.4 % (11.5-14.5); WHITE BLOOD COUNT 8.2 10^3/uL (4.0-10.0)
[2017-10-03 13:55] LABS: ALBUMIN 3.8 GM/DL (3.2-5.2); ALBUMIN/GLOBULIN RATIO 1.19 (1.00-1.93); ALKALINE PHOSPHATASE 117 U/L (45-117); ALT/SGPT 44 U/L (12-78); ANION GAP 9 MEQ/L (8-16); AST/SGOT 32 U/L (7-37); BILIRUBIN,TOTAL 0.2 MG/DL (0.2-1.0); BLOOD UREA NITROGEN 12 MG/DL (7-18); CALCIUM LEVEL 9.8 MG/DL (8.5-10.1); CARBON DIOXIDE LEVEL 25 MEQ/L (21-32); CHLORIDE LEVEL 103 MEQ/L (98-107); CHOLESTEROL LEVEL 256 MG/DL (<200); CHOLESTEROL RISK RATIO 8.827 (<5); CREATININE FOR GFR 0.79 MG/DL (0.55-1.02); GLOMERULAR FILTRATION RATE > 60.0 (>51); GLUCOSE, FASTING 235 MG/DL (70-100); HDL CHOLESTEROL 29 MG/DL (>40); LDL CHOLESTEROL 149.4 MG/DL (<100); NON-HDL-C 227 MG/DL; POTASSIUM SERUM 4.1 MEQ/L (3.5-5.1); SODIUM LEVEL 137 MEQ/L (136-145); TRIGLYCERIDES LEVEL 388 MG/DL (<150)
[2017-10-03 14:23] LABS: ESTIMATED AVERAGE GLUCOSE 237 MG/DL (60-110); HEMOGLOBIN A1c 9.9 %
== END ==
LOC: M LABWUC 13:01
DX: E11.9 Type 2 diabetes mellitus without complications (principal)
CPT/HCPCS: 80053

== ENCOUNTER 2017-10-10 06:02 | Emergency (ER) | payer MEDICARE, MEDICAID ==
[2017-10-10] MEDS ORDERED: NS 1,000 ML IV (07:15)
[2017-10-10] MEDS ORDERED: KETOROLAC 30 MG/ML VIAL (J1885) IV (07:15)
[2017-10-10] MEDS ORDERED: METOCLOPRAMIDE INJ 10MG/2ML VIAL (J2765) IV (07:15)
[2017-10-10] MEDS ORDERED: diphenhydrAMINE INJ 50MG/ML VIAL (J1200) IV (07:15)
[2017-10-10] MEDS: KETOROLAC 60 MG/2 ML VIAL (J1885) IM (07:46)
[2017-10-10] MEDS: ONDANSETRON 4 MG ORAL DISINTEGRATING TAB (S0181) PO (07:46)
[2017-10-10 08:17] LABS: KETONE, URINE AUTO RFX NEGATIVE (NEGATIVE); MUCUS, URINE RFX SMALL (NEGATIVE); NITRITE, URINE AUTO RFX NEGATIVE (NEGATIVE); RBC, URINE AUTO RFX 3 /HPF (0-3); SPECIFIC GRAVITY UR AUTO RFX 1.016 (1.002-1.035); SQUAM EPITHELIAL CELL UR AURFX 3 /HPF (0-6); WBC, URINE AUTO RFX 5 /HPF (0-3)
[2017-10-10 08:21] LABS: LEUKOCYTE ESTERASE UR AUTO RFX 2+ (NEGATIVE)
== END 2017-10-10 09:11 | disposition home or self-care (01) ==
LOC: M ED 06:02
DX: R51 Headache (principal); I10 Essential (primary) hypertension; R11.0 Nausea; E78.9 Disorder of lipoprotein metabolism, unspecified; J44.9 Chronic obstructive pulmonary disease, unspecified; K21.9 Gastro-esophageal reflux disease without esophagitis; E11.9 Type 2 diabetes mellitus without complications; M54.5 Low back pain; F31.9 Bipolar disorder, unspecified; F17.210 Nicotine dependence, cigarettes, uncomplicated; Z88.8 Allergy status to other drugs, medicaments and biological substances; Z88.7 Allergy status to serum and vaccine; Z79.899 Other long term (current) drug therapy; Z79.84 Long term (current) use of oral hypoglycemic drugs
CPT/HCPCS: J1885

== ENCOUNTER → 2017-10-22 | Outpatient (CLI) | payer MEDICARE, MEDICAID ==
[2017-10-22 11:05] LABS: HEMATOCRIT 44.3 % (36.0-47.0); HEMOGLOBIN 15.1 g/dl (12.0-16.0); MEAN CORPUSCULAR HEMOGLOBIN 28.5 pg (27.0-33.0); MEAN CORPUSCULAR HGB CONC 34.1 g/dl (32.0-36.5); MEAN CORPUSCULAR VOLUME 83.7 fl (80.0-96.0); PLATELET COUNT, AUTOMATED 299 10^3/uL (150-450); RED BLOOD COUNT 5.29 10^6/uL (4.00-5.40); RED CELL DISTRIBUTION WIDTH 13.8 % (11.5-14.5); WHITE BLOOD COUNT 11.1 10^3/uL (4.0-10.0)
[2017-10-22 11:38] LABS: ALBUMIN/GLOBULIN RATIO 1.21 (1.00-1.93); ALKALINE PHOSPHATASE 106 U/L (45-117); ALT/SGPT 42 U/L (12-78); ANION GAP 12 MEQ/L (8-16); AST/SGOT 27 U/L (7-37); BILIRUBIN,TOTAL 0.2 MG/DL (0.2-1.0); BLOOD UREA NITROGEN 22 MG/DL (7-18); CALCIUM LEVEL 9.5 MG/DL (8.5-10.1); CARBON DIOXIDE LEVEL 25 MEQ/L (21-32); CHLORIDE LEVEL 97 MEQ/L (98-107); CHOLESTEROL LEVEL 258 MG/DL (<200); CHOLESTEROL RISK RATIO 9.214 (<5); CREATININE FOR GFR 0.77 MG/DL (0.55-1.30); GLOMERULAR FILTRATION RATE > 60.0 (>51); GLUCOSE, FASTING 148 MG/DL (70-100); HDL CHOLESTEROL 28 MG/DL (>40); IRON (FE) 64 UG/DL (50-170); MAGNESIUM LEVEL 1.6 MG/DL (1.8-2.4); NON-HDL-C 230 MG/DL; PERCENT SATURATION 16.1 % (13.2-45.0); POTASSIUM SERUM 3.3 MEQ/L (3.5-5.1); SODIUM LEVEL 134 MEQ/L (136-145); TOTAL IRON BINDING CAPACITY 397 UG/DL (250-450); TOTAL PROTEIN 7.3 GM/DL (6.4-8.2); TRIGLYCERIDES LEVEL 577 MG/DL (<150)
[2017-10-22 11:44] LABS: ESTIMATED AVERAGE GLUCOSE 217 MG/DL (60-110); HEMOGLOBIN A1c 9.2 %
[2017-10-24 09:37] LABS: TOTAL 25(OH) VITAMIN D 11.9 NG/ML (30.0-100.0)
== END ==
LOC: M WUC 09:35
DX: D64.9 Anemia, unspecified (principal); R53.83 Other fatigue; E11.9 Type 2 diabetes mellitus without complications
CPT/HCPCS: 83550

== ENCOUNTER → 2017-12-05 | Outpatient (CLI) | payer MEDICARE, MEDICAID | LOC: M RAD 09:36 | DX: I73.9 Peripheral vascular disease, unspecified (principal); R42 Dizziness and giddiness; H53.8 Other visual disturbances | CPT/HCPCS: 70551 ==

== ENCOUNTER 2017-12-28 10:58 | Inpatient (IN) | payer MEDICARE, MEDICAID ==
[2017-12-28 12:12] LABS: HEMATOCRIT 40.9 % (36.0-47.0); HEMOGLOBIN 14.2 g/dl (12.0-15.5); MEAN CORPUSCULAR HEMOGLOBIN 29.3 pg (27.0-33.0); MEAN CORPUSCULAR HGB CONC 34.7 g/dl (32.0-36.5); MEAN CORPUSCULAR VOLUME 84.5 fl (80.0-96.0); PLATELET COUNT, AUTOMATED 257 10^3/uL (150-450); RED BLOOD COUNT 4.84 10^6/uL (4.00-5.40); RED CELL DISTRIBUTION WIDTH 14.3 % (11.5-14.5); WHITE BLOOD COUNT 11.2 10^3/uL (4.0-10.0)
[2017-12-28 12:27] LABS: ALBUMIN 3.9 GM/DL (3.2-5.2); ALBUMIN/GLOBULIN RATIO 1.08 (1.00-1.93); ALKALINE PHOSPHATASE 116 U/L (45-117); ALT/SGPT 33 U/L (12-78); ANION GAP 7 MEQ/L (8-16); AST/SGOT 22 U/L (7-37); BILIRUBIN,DIRECT < 0.1 MG/DL (0.0-0.2); BILIRUBIN,TOTAL 0.3 MG/DL (0.2-1.0); BLOOD UREA NITROGEN 13 MG/DL (7-18); CARBON DIOXIDE LEVEL 31 MEQ/L (21-32); CHLORIDE LEVEL 102 MEQ/L (98-107); CREATININE FOR GFR 0.67 MG/DL (0.55-1.30); ETHYL ALCOHOL (ETHANOL) < 0.003 % (0.000-0.010); GLOMERULAR FILTRATION RATE > 60.0 (>51); GLUCOSE, FASTING 116 MG/DL (70-100); POTASSIUM SERUM 3.6 MEQ/L (3.5-5.1); SALICYLATE LEVEL 5.7 MG/DL (5.0-30.0); SODIUM LEVEL 140 MEQ/L (136-145); THYROID STIMULATING HORMONE 0.932 uIU/ML (0.358-3.740); TOTAL PROTEIN 7.5 GM/DL (6.4-8.2)
[2017-12-28 12:28] LABS: ACETAMINOPHEN LEVEL < 2.0 UG/ML (10.0-30.0)
[2017-12-28 12:39] LABS: AMPHETAMINES LEVEL URINE NEGATIVE (NEGATIVE); BARBITURATES URINE NEGATIVE (NEGATIVE); BENZODIAZEPINES URINE NEGATIVE (NEGATIVE); CANNABINOIDS URINE NEGATIVE (NEGATIVE); COCAINE METABOLITE URINE NEGATIVE (NEGATIVE); METHADONE URINE NEGATIVE (NEGATIVE); OPIATES URINE NEGATIVE (NEGATIVE); PHENCYCLIDINE URINE NEGATIVE (NEGATIVE)
[2017-12-28 13:13] LABS: CARBAMAZEPINE (TEGRETOL) LEVEL 7.1 UG/ML (4.0-10.0)
[2017-12-28] MEDS: ACETAMINOPHEN TAB 650MG DOSE (2X325MG) PO (13:22)
[2017-12-28] MEDS: PERCOCET 5MG/325MG TAB PO (16:39)
[2017-12-28 16:44] LABS: BEDSIDE GLUCOSE 124 MG/DL (70-105)
[2017-12-28] MEDS ORDERED: MAALOX 30 ML SUSP *UDC PO (16:45)
[2017-12-28] MEDS ORDERED: MOM 30ML SUSPENSION UDC PO (16:45)
[2017-12-28] MEDS: NICOTINE 14 MG/24 HR TRANSDERMAL TD (17:34)
[2017-12-28] MEDS: metFORMIN (GLUCOPHAGE) 1000 MG TABLET PO (17:35)
[2017-12-28] MEDS: tiZANidine 4 MG TAB PO (18:20)
[2017-12-28] MEDS: clonazePAM 0.5 MG TAB PO (20:31)
[2017-12-28] MEDS: traZODone 100 MG TAB PO (20:34)
[2017-12-28] MEDS: IBUPROFEN 600 MG TAB PO (20:34)
[2017-12-28] MEDS: carBAMazepine XR 200 MG TAB PO (20:34)
[2017-12-28] MEDS: PILL CRUSHER/CUTTER 1 EACH XX (20:35)
[2017-12-28] MEDS ORDERED: PREGABALIN 75 MG CAP(LYRICA) PO (21:00)
[2017-12-29] MEDS: IBUPROFEN 600 MG TAB PO ×3 (02:36→16:37)
[2017-12-29] MEDS: tiZANidine 4 MG TAB PO (03:15)
[2017-12-29 06:18] LABS: BEDSIDE GLUCOSE 122 MG/DL (70-105)
[2017-12-29] MEDS: CLOPIDOGREL 75 MG TAB PO (09:26)
[2017-12-29] MEDS: FLUoxetine 20 MG CAP PO (09:26)
[2017-12-29] MEDS: hydroCHLOROthiazide 25 MG TAB PO (09:27)
[2017-12-29] MEDS: clonazePAM 0.5 MG TAB PO ×2 (09:27→20:08)
[2017-12-29] MEDS: carBAMazepine XR 200 MG TAB PO ×2 (09:27→20:08)
[2017-12-29] MEDS: FUROSEMIDE 40 MG TAB PO (09:28)
[2017-12-29] MEDS: LOSARTAN 50 MG TAB PO (09:29)
[2017-12-29] MEDS: metFORMIN (GLUCOPHAGE) 1000 MG TABLET PO ×2 (09:29→17:10)
[2017-12-29] MEDS: SIMVASTATIN 20 MG TAB PO (09:29)
[2017-12-29] MEDS: NYSTATIN 100,000 UNITS/GM TOPICAL PWD 15 GM TOP ×2 (09:30→20:52)
[2017-12-29] MEDS: NICOTINE 14 MG/24 HR TRANSDERMAL TD (09:31)
[2017-12-29] MEDS: INFLUENZA QUADRIVALENT PF VACCINE 0.5ML SYRINGE (90686) IM (09:33)
[2017-12-29] MEDS: hydrOXYzine 50 MG TAB PO (12:31)
[2017-12-29 17:21] LABS: BEDSIDE GLUCOSE 103 MG/DL (70-105)
[2017-12-30] MEDS: tiZANidine 4 MG TAB PO ×2 (01:13→09:41)
[2017-12-30] MEDS: IBUPROFEN 600 MG TAB PO ×2 (01:14→09:46)
[2017-12-30 06:18] LABS: BEDSIDE GLUCOSE 118 MG/DL (70-105)
[2017-12-30] MEDS: LOSARTAN 50 MG TAB PO (08:24)
[2017-12-30] MEDS: CLOPIDOGREL 75 MG TAB PO (08:24)
[2017-12-30] MEDS: hydroCHLOROthiazide 25 MG TAB PO (08:24)
[2017-12-30] MEDS: FLUoxetine 20 MG CAP PO (08:24)
[2017-12-30] MEDS: FUROSEMIDE 40 MG TAB PO (08:25)
[2017-12-30] MEDS: metFORMIN (GLUCOPHAGE) 1000 MG TABLET PO (08:25)
[2017-12-30] MEDS: carBAMazepine XR 200 MG TAB PO (08:25)
[2017-12-30] MEDS: clonazePAM 0.5 MG TAB PO (08:25)
[2017-12-30] MEDS: SIMVASTATIN 20 MG TAB PO (08:53)
[2017-12-30] MEDS: NICOTINE 14 MG/24 HR TRANSDERMAL TD (08:53)
[2017-12-30] MEDS: NYSTATIN 100,000 UNITS/GM TOPICAL PWD 15 GM TOP (08:57)
[2018-01-03] MEDS ORDERED: VITAMIN D 50,000 UNITS CAPSULE (ERGOCALCIFEROL 1.25MG) PO (09:00)
== END 2017-12-30 15:10 | disposition home or self-care (01) | DRG 885 ==
LOC: M PSY 12-29 16:09 → M ED 10:58 → M ED INP 14:36 → M PSY 15:30
DX: F31.9 Bipolar disorder, unspecified (principal); R45.851 Suicidal ideations; F45.9 Somatoform disorder, unspecified; I12.9 Hypertensive chronic kidney disease with stage 1 through stage 4 chronic kidney disease, or unspecified chronic kidney disease; E11.9 Type 2 diabetes mellitus without complications; N18.2 Chronic kidney disease, stage 2 (mild); B35.4 Tinea corporis; M54.2 Cervicalgia; I25.10 Atherosclerotic heart disease of native coronary artery without angina pectoris; G50.0 Trigeminal neuralgia; M54.81 Occipital neuralgia; Z88.8 Allergy status to other drugs, medicaments and biological substances; Z88.7 Allergy status to serum and vaccine; Z95.9 Presence of cardiac and vascular implant and graft, unspecified; Z98.1 Arthrodesis status; Z79.84 Long term (current) use of oral hypoglycemic drugs; Z79.02 Long term (current) use of antithrombotics/antiplatelets; Z79.899 Other long term (current) drug therapy

== ENCOUNTER 2018-01-03 08:47 | Inpatient (IN) | payer MEDICARE, MEDICAID ==
[2018-01-03 10:27] LABS: HEMATOCRIT 45.8 % (36.0-47.0); HEMOGLOBIN 15.7 g/dl (12.0-15.5); MEAN CORPUSCULAR HEMOGLOBIN 28.7 pg (27.0-33.0); MEAN CORPUSCULAR HGB CONC 34.3 g/dl (32.0-36.5); MEAN CORPUSCULAR VOLUME 83.7 fl (80.0-96.0); PLATELET COUNT, AUTOMATED 302 10^3/uL (150-450); RED BLOOD COUNT 5.47 10^6/uL (4.00-5.40); RED CELL DISTRIBUTION WIDTH 14.1 % (11.5-14.5)
[2018-01-03 11:18] LABS: ALBUMIN 3.9 GM/DL (3.2-5.2); ALBUMIN/GLOBULIN RATIO 1.08 (1.00-1.93); ALKALINE PHOSPHATASE 118 U/L (45-117); ALT/SGPT 35 U/L (12-78); ANION GAP 10 MEQ/L (8-16); AST/SGOT 23 U/L (7-37); BILIRUBIN,DIRECT < 0.1 MG/DL (0.0-0.2); BILIRUBIN,TOTAL 0.2 MG/DL (0.2-1.0); BLOOD UREA NITROGEN 18 MG/DL (7-18); CALCIUM LEVEL 10.2 MG/DL (8.5-10.1); CARBON DIOXIDE LEVEL 29 MEQ/L (21-32); CHLORIDE LEVEL 99 MEQ/L (98-107); CREATININE FOR GFR 0.86 MG/DL (0.55-1.30); ETHYL ALCOHOL (ETHANOL) < 0.003 % (0.000-0.010); GLOMERULAR FILTRATION RATE > 60.0 (>51); GLUCOSE, FASTING 122 MG/DL (70-100); POTASSIUM SERUM 3.4 MEQ/L (3.5-5.1); SALICYLATE LEVEL 5.8 MG/DL (5.0-30.0); SODIUM LEVEL 138 MEQ/L (136-145); TOTAL PROTEIN 7.5 GM/DL (6.4-8.2)
[2018-01-03 11:21] LABS: ACETAMINOPHEN LEVEL < 2.0 UG/ML (10.0-30.0)
[2018-01-03 14:20] LABS: AMPHETAMINES LEVEL URINE NEGATIVE (NEGATIVE); BARBITURATES URINE NEGATIVE (NEGATIVE); BENZODIAZEPINES URINE NEGATIVE (NEGATIVE); CANNABINOIDS URINE NEGATIVE (NEGATIVE); COCAINE METABOLITE URINE NEGATIVE (NEGATIVE); METHADONE URINE NEGATIVE (NEGATIVE); OPIATES URINE NEGATIVE (NEGATIVE); PHENCYCLIDINE URINE NEGATIVE (NEGATIVE)
[2018-01-03] MEDS: POTASSIUM CHLORIDE 10 MEQ SR TABLET PO (16:15)
[2018-01-03] MEDS ORDERED: MAALOX 30 ML SUSP *UDC PO (20:15)
[2018-01-03] MEDS ORDERED: MOM 30ML SUSPENSION UDC PO (20:15)
[2018-01-03] MEDS: carBAMazepine 200 MG TAB PO (21:31)
[2018-01-03] MEDS: ACETAMINOPHEN TAB 650MG DOSE (2X325MG) PO (21:31)
[2018-01-04] MEDS: ACETAMINOPHEN TAB 650MG DOSE (2X325MG) PO ×2 (09:13→18:02)
[2018-01-04] MEDS: FLUoxetine 20 MG CAP PO (09:13)
[2018-01-04] MEDS: carBAMazepine 200 MG TAB PO ×2 (09:14→20:18)
[2018-01-04] MEDS: metFORMIN (GLUCOPHAGE) 1000 MG TABLET PO ×2 (09:14→18:01)
[2018-01-04] MEDS: LOSARTAN 50 MG TAB PO (09:14)
[2018-01-04] MEDS: FUROSEMIDE 40 MG TAB PO (09:14)
[2018-01-04] MEDS: CLOPIDOGREL 75 MG TAB PO (09:14)
[2018-01-04] MEDS: hydroCHLOROthiazide 25 MG TAB PO (09:14)
[2018-01-04 11:53] LABS: HEMATOCRIT 47.4 % (36.0-47.0); HEMOGLOBIN 16.3 g/dl (12.0-15.5); MEAN CORPUSCULAR HEMOGLOBIN 28.7 pg (27.0-33.0); MEAN CORPUSCULAR HGB CONC 34.4 g/dl (32.0-36.5); MEAN CORPUSCULAR VOLUME 83.5 fl (80.0-96.0); PLATELET COUNT, AUTOMATED 356 10^3/uL (150-450); RED BLOOD COUNT 5.68 10^6/uL (4.00-5.40); RED CELL DISTRIBUTION WIDTH 14.2 % (11.5-14.5); WHITE BLOOD COUNT 10.2 10^3/uL (4.0-10.0)
[2018-01-04 12:17] LABS: ANION GAP 6 MEQ/L (8-16); BLOOD UREA NITROGEN 24 MG/DL (7-18); CALCIUM LEVEL 10.2 MG/DL (8.5-10.1); CARBON DIOXIDE LEVEL 30 MEQ/L (21-32); CHLORIDE LEVEL 103 MEQ/L (98-107); CREATININE FOR GFR 0.93 MG/DL (0.55-1.30); GLOMERULAR FILTRATION RATE > 60.0 (>51); GLUCOSE, FASTING 168 MG/DL (70-100); POTASSIUM SERUM 3.3 MEQ/L (3.5-5.1); SODIUM LEVEL 139 MEQ/L (136-145)
[2018-01-04] MEDS: clonazePAM 0.5 MG TAB PO ×2 (12:49→20:18)
[2018-01-04] MEDS: SIMVASTATIN 20 MG TAB PO (20:18)
[2018-01-04] MEDS: traZODone 100 MG TAB PO (20:18)
[2018-01-05] MEDS: ACETAMINOPHEN TAB 650MG DOSE (2X325MG) PO ×2 (02:45→10:03)
[2018-01-05 07:36] LABS: HEMATOCRIT 45.8 % (36.0-47.0); HEMOGLOBIN 15.5 g/dl (12.0-15.5); MEAN CORPUSCULAR HEMOGLOBIN 28.5 pg (27.0-33.0); MEAN CORPUSCULAR HGB CONC 33.8 g/dl (32.0-36.5); MEAN CORPUSCULAR VOLUME 84.3 fl (80.0-96.0); PLATELET COUNT, AUTOMATED 335 10^3/uL (150-450); RED BLOOD COUNT 5.43 10^6/uL (4.00-5.40); RED CELL DISTRIBUTION WIDTH 14.3 % (11.5-14.5); WHITE BLOOD COUNT 11.5 10^3/uL (4.0-10.0)
[2018-01-05 07:57] LABS: ALBUMIN/GLOBULIN RATIO 1.14 (1.00-1.93); ALKALINE PHOSPHATASE 119 U/L (45-117); ALT/SGPT 36 U/L (12-78); ANION GAP 10 MEQ/L (8-16); AST/SGOT 20 U/L (7-37); BILIRUBIN,TOTAL 0.2 MG/DL (0.2-1.0); BLOOD UREA NITROGEN 35 MG/DL (7-18); CALCIUM LEVEL 9.3 MG/DL (8.5-10.1); CARBON DIOXIDE LEVEL 30 MEQ/L (21-32); CHLORIDE LEVEL 101 MEQ/L (98-107); CREATININE FOR GFR 1.01 MG/DL (0.55-1.30); GLOMERULAR FILTRATION RATE > 60.0 (>51); GLUCOSE, FASTING 126 MG/DL (70-100); POTASSIUM SERUM 3.2 MEQ/L (3.5-5.1); SODIUM LEVEL 141 MEQ/L (136-145); TOTAL PROTEIN 7.5 GM/DL (6.4-8.2)
[2018-01-05] MEDS: CLOPIDOGREL 75 MG TAB PO (08:22)
[2018-01-05] MEDS: FLUoxetine 20 MG CAP PO (08:22)
[2018-01-05] MEDS: carBAMazepine 200 MG TAB PO (08:22)
[2018-01-05] MEDS: LOSARTAN 50 MG TAB PO (08:22)
[2018-01-05] MEDS: hydroCHLOROthiazide 25 MG TAB PO (08:23)
[2018-01-05] MEDS: metFORMIN (GLUCOPHAGE) 1000 MG TABLET PO (08:23)
[2018-01-05] MEDS: clonazePAM 0.5 MG TAB PO (08:23)
[2018-01-05] MEDS: FUROSEMIDE 40 MG TAB PO (08:23)
== END 2018-01-05 10:25 | disposition home or self-care (01) | DRG 885 ==
LOC: M ED 08:47 → M ED INP 15:49 → M PSY 17:48
DX: F31.81 Bipolar II disorder (principal); R45.851 Suicidal ideations; F60.7 Dependent personality disorder; F45.1 Undifferentiated somatoform disorder; I25.10 Atherosclerotic heart disease of native coronary artery without angina pectoris; E11.9 Type 2 diabetes mellitus without complications; E87.6 Hypokalemia; N18.2 Chronic kidney disease, stage 2 (mild); M54.2 Cervicalgia; G89.29 Other chronic pain; I12.9 Hypertensive chronic kidney disease with stage 1 through stage 4 chronic kidney disease, or unspecified chronic kidney disease; J30.9 Allergic rhinitis, unspecified; G47.33 Obstructive sleep apnea (adult) (pediatric); G50.0 Trigeminal neuralgia; Z98.1 Arthrodesis status; Z95.9 Presence of cardiac and vascular implant and graft, unspecified; Z79.899 Other long term (current) drug therapy; Z79.02 Long term (current) use of antithrombotics/antiplatelets; Z91.5 Personal history of self-harm; Z88.7 Allergy status to serum and vaccine; Z79.84 Long term (current) use of oral hypoglycemic drugs; Z88.8 Allergy status to other drugs, medicaments and biological substances; Z76.5 Malingerer [conscious simulation]

== ENCOUNTER → 2018-07-05 | Outpatient (CLI) | payer MEDICARE, MEDICAID | LOC: M PAIN 10:00 | DX: M54.2 Cervicalgia (principal); M47.892 Other spondylosis, cervical region; E11.9 Type 2 diabetes mellitus without complications; I10 Essential (primary) hypertension; F17.210 Nicotine dependence, cigarettes, uncomplicated; F31.9 Bipolar disorder, unspecified; F41.9 Anxiety disorder, unspecified; Z79.01 Long term (current) use of anticoagulants; Z79.84 Long term (current) use of oral hypoglycemic drugs; Z79.899 Other long term (current) drug therapy; Z88.5 Allergy status to narcotic agent; Z86.69 Personal history of other diseases of the nervous system and sense organs | CPT/HCPCS: G0463 ==

== ENCOUNTER → 2018-07-27 | Outpatient (CLI) | payer MEDICARE, MEDICAID ==
[~2018-07-27] MED LIST changes: -/LAMO10TA OR; -/LOR25TA OR; -/ONDA4TA SL; -/PANT40TA OR; -ACET65TA OR; -ALLE25CA OR; -AMIT25TA PO; -AMLO10TA PO; -AMLO10TA2 PO; -AMLO25TA PO; -AMOX500T2 PO; -ATEN100T; -AUGM500T34 PO; -AUGM875T28 PO; -BACL10TA2 PO; -BACL1TAB9; -BACL1TAB9 PO; -BENA25CA2 PO; -BENZ-52 PO; -BISA5TAB7 PO; +BUPIVACAINE HCL 0.25% 10 ML VIAL As Ordered; +BUPIVACAINE HCL 0.25% 30 ML VIAL As Ordered; -CARB1TAB20 PO; -CARB20TA PO; -CELE20TA; -CEPH500T PO; -CIPR25SS; -CIPR25SS OR; -CITA20TA4 PO; -CLEO300C2 PO; -CLON0.5T PO; -CLOT1CRE71 TOP; -COZA25TA8 OR; -DARV100T; -DEPA1TAB3 PO; -DEPA500T2 PO; -EXCETAB81 PO; -FLAG500T OR; -FLON0.054; -FLON1SPR; -FLUC150T; -FLUP5TA PO; -FURO20TA2 PO; -FURO40TA2 PO; -GABA-282 PO; -GABA-283 PO; -GABA600T PO; -GENT3OPD OD; -GLUC1TES2 VI; -GLUC500T OR; -HYDR1CAP25 PO; -HYDR50TA70 PO; -HYDRO50TAB PO; -Hyzaar; -IBUP-1114 PO; -IBUPOTC PO; -INDO25CA PO; -INDO25SU PO; -INDO50CA PO; -INVE234I IM; -KEFL500C17 PO; -KLON0.5T; -KLON1TAB; -LASI20TA OR; -LASI20TA PO; -LASI40TA PO; -LEVA750T7 PO; -LIDO1OIN2 TOP; -LISI-538 PO; -LISI40TAB PO; -LITH300C PO; -LITH300T2; -LITH300T2 PO; -LITH600C; -LITHOBID PO; -LOSA25TA8 PO; -MAALSUS18 PO; -METF10004 PO; -METF500T13 PO; -METO100T5 PO; -MILKSUS PO; -MOBI15TA PO; -NAPR500T3 PO; -NEUR300C PO; -NEUR600T PO; -NICO14PA TD; -NICO2GUM62 PO; -NYST50SS SS; -OCEA0.654; -OLAN15TA PO; -OLAN5TAB PO; -OLAN7.5T PO; -OXCA300T PO; -PERC5TAB12 PO; -PRED20TA PO; -PRIN5TAB PO; -PROLIXIN PO; -QUET30XR; -QUET5TAB PO; -REME15TA PO; -RISP1TAB3 PO; -RISP2TAB3 PO; -RISP2TAB32 PO; -ROBA500T; -ROBA500T PO; -ROBA750T; -ROBA750T4 PO; -SERO200T; -SERO50TA PO; -SERT-138 PO; -TENO100T PO; -TIZA4CAP3 PO; -TOPA100T12 PO; -TOPA50TA8 PO; -TOPI25TA10; -TOPI25TA10 PO; -TRAM100T; -TRAM50TA2; -TRAZ-136 PO; -TRAZ50TA; -TRAZ50TA11 PO; +TRIAMCINOLONE ACETONIDE SUSP 40 MG/ML VIAL (J3301) As Ordered; -TYLE325T5 PO; -Trazadone; -VALI2TAB PO; -VALI5TAB OR; -VIST25CA PO; -VITA10002 PO; -ZANA4CAP OR; -ZANA4TAB PO; -ZANA6CAP PO; -ZOLO100T PO; -[UNRECOGNIZED DRUG - CODE] PO; -bengay cream TOP; -hyzaar; -prolixin PO
== END ==
LOC: M PAIN 11:15
DX: M54.81 Occipital neuralgia (principal); M79.18 Myalgia, other site; I10 Essential (primary) hypertension; E11.9 Type 2 diabetes mellitus without complications; F17.210 Nicotine dependence, cigarettes, uncomplicated; F31.9 Bipolar disorder, unspecified; F41.9 Anxiety disorder, unspecified; Z79.01 Long term (current) use of anticoagulants; Z79.84 Long term (current) use of oral hypoglycemic drugs; Z79.899 Other long term (current) drug therapy; Z88.5 Allergy status to narcotic agent
CPT/HCPCS: J3301

== ENCOUNTER → 2018-08-10 | Outpatient (CLI) | payer MEDICARE, MEDICAID | LOC: M PAIN 11:30 | DX: M54.81 Occipital neuralgia (principal); E11.9 Type 2 diabetes mellitus without complications; I10 Essential (primary) hypertension; F17.210 Nicotine dependence, cigarettes, uncomplicated; E66.01 Morbid (severe) obesity due to excess calories; Z68.36 Body mass index [BMI] 36.0-36.9, adult; Z79.84 Long term (current) use of oral hypoglycemic drugs; Z79.899 Other long term (current) drug therapy; Z79.01 Long term (current) use of anticoagulants; Z88.5 Allergy status to narcotic agent; Z86.59 Personal history of other mental and behavioral disorders | CPT/HCPCS: G0463 ==

== ENCOUNTER → 2018-08-28 | Outpatient (CLI) | payer MEDICARE, MEDICAID ==
[~2018-08-28] MED LIST changes: +/LAMO10TA OR; +/LOR25TA OR; +/ONDA4TA SL; +/PANT40TA OR; +ABIL1TAB13 PO; +ACET65TA OR; +ALLE25CA OR; +AMIT25TA PO; +AMLO10TA PO; +AMLO10TA4 PO; +AMLO25TA PO; +AMOX500T2 PO; +ARIP1TAB4 PO; +ATEN100T; +AUGM500T34 PO; +AUGM875T28 PO; +BACL10TA2 PO; +BACL1TAB9; +BACL1TAB9 PO; +BENA25CA2 PO; +BENZ-52 PO; +BISA5TAB7 PO; -BUPIVACAINE HCL 0.25% 10 ML VIAL As Ordered; +BUPIVACAINE HCL 0.25% 10 ML VIAL As Ordered ONE; -BUPIVACAINE HCL 0.25% 30 ML VIAL As Ordered; +BUPIVACAINE HCL 0.25% 30 ML VIAL As Ordered ONE; +CARB1TAB20 PO; +CARB20TA PO; +CARB20TAXR PO; +CELE20TA; +CEPH500T PO; +CIPR25SS; +CIPR25SS OR; +CITA20TA4 PO; +CLEO300C2 PO; +CLON0.5T8 PO; +CLOT1CRE71 TOP; +COZA25TA8 OR; +CYCL10TA PO; +DARV100T; +DEPA1TAB3 PO; +DEPA500T2 PO; +DRIS50003 PO; +EXCETAB81 PO; +FLAG500T OR; +FLON0.054; +FLON1SPR; +FLUC150T; +FLUP5TA PO; +FURO20TA2 PO; +FURO40TA2 PO; +GABA-843 PO; +GABA-845 PO; +GABA600T PO; +GENT3OPD OD; +GLUC1TES2 VI; +GLUC500T OR; +HYDR1CAP25 PO; +HYDR50TA70 PO; +HYDRO50TAB PO; +Hyzaar; +IBUP-1114 PO; +IBUPOTC PO; +INDO25CA PO; +INDO25SU PO; +INDO50CA PO; +INVE234I IM; +KEFL500C17 PO; +KETO15IN5 PO; +KLON0.5T; +KLON1TAB; +LASI20TA OR; +LASI20TA PO; +LASI40TA PO; +LEVA750T7 PO; +LIDO1OIN2 TOP; +LISI-538 PO; +LISI40TAB PO; +LITH300C PO; +LITH300T2; +LITH300T2 PO; +LITH600C; +LITHOBID PO; +LOSA100T5 PO; +LOSA25TA33 PO; +LOSA50TA73 PO; +LYRI75CA PO; +MAALSUS18 PO; +METF10004 PO; +METF500T13 PO; +METO100T5 PO; +MILK12002 PO; +MOBI15TA PO; +NAPR-885 PO; +NEUR300C PO; +NEUR600T PO; +NICO14DI3 TD; +NICO14PA TD; +NICO2GUM62 PO; +NORCOTAB PO; +NYST50SS SS; +OCEA0.654; +OLAN15TA PO; +OLAN5TAB PO; +OLAN7.5T PO; +OXCA300T14 PO; +PERC5TAB12 PO; +PLAV1TAB2 PO; +PRED20TA PO; +PRIN5TAB PO; +PROLIXIN PO; +PROZ40CA PO; +QUET30XR; +QUET5TAB PO; +REME15TA PO; +RISP1TAB3 PO; +RISP2TAB3 PO; +RISP2TAB32 PO; +ROBA500T; +ROBA500T PO; +ROBA750T; +ROBA750T4 PO; +SERO200T; +SERO50TA PO; +SERT-138 PO; +SIMV20TA2 PO; +TENO100T PO; +TIZA4CAP PO; +TOPA100T12 PO; +TOPA50TA8 PO; +TOPI25TA10; +TOPI25TA10 PO; +TRAM100T; +TRAM50TA2; +TRAZ-160 PO; +TRAZ-163 PO; +TRAZ10TA PO; +TRAZ50TA; -TRIAMCINOLONE ACETONIDE SUSP 40 MG/ML VIAL (J3301) As Ordered; +TRIAMCINOLONE ACETONIDE SUSP 40 MG/ML VIAL (J3301) As Ordered ONE; +TYLE325T5 PO; +Trazadone; +VALI2TAB PO; +VALI5TAB OR; +VALI5TAB PO; +VIST25CA PO; +VITA10002 PO; +VITA50005 PO; +ZANA4CAP OR; +ZANA4CAP PO; +ZANA4TAB PO; +ZANA6CAP PO; +ZOLO100T PO; +bengay cream TOP; +hyzaar; +prolixin PO
--- NOTE | 2018-09-12 23:35 | ECWPNPC ---
PATIENT NAME: ANISH OHARA : 1960 GENDER: FEMALE VISIT DATE: 08/28/2018 DISCHARGE DATE: 08/28/180 VISIT LOCKED DATE TIME: PHYSICIAN: CARTER ASENCIO MD RESOURCE: CARTER ASENCIO MD REASON FOR APPOINTMENT 1. BILAT. OCCIPITAL NERVE BLOCK HISTORY OF PRESENT ILLNESS HISTORY OF PRESENT ILLNESS: PAIN THE PATIENT DESCRIBES THE PAIN... FALL RISK SCREENING: SCREENING :NO FALLS IN THE PAST YEAR CURRENT MEDICATIONS TAKING PLAVIX 75 MG TABLET 1 TABLET ORALLY ONCE A DAY, NOTES: 08/21/18 0800 TAKING TEGRETOL 200 MG TABLET 1 TABLET ORALLY TWICE A DAY, NOTES: 08/27/181999 TAKING TYLENOL 325 MG TABLET 1 TABLET NEEDED ORALLY EVERY 4 HRS, NOTES: > 1 WEEK TAKING LOSARTAN POTASSIUM 100 MG TABLET 1 TABLET ORALLY ONCE A DAY, NOTES: 08/28/18 0800 TAKING LASIX 40 MG TABLET 1 TABLET ORALLY ONCE A DAY NEEDED, NOTES: 08/27/18 0800 TAKING METFORMIN HCL 1000 MG TABLET 1 TABLET WITH MEALS ORALLY TWICE A DAY, NOTES: 08/27/18 1800 TAKING JANUVIA 100 MG TABLET 1 TABLET ORALLY ONCE A DAY, NOTES: 08/27/18 0800 TAKING HYDROCODONE-ACETAMINOPHEN 5-325 MG TABLET 1 TABLET NEEDED ORALLY BID, NOTES: > 2 WEEKS TAKING DIAZEPAM 2 MG TABLET 1 TABLET NEEDED ORALLY EVERY 8 HOURS, NOTES: 08/27/181999 TAKING OXYGEN 2 LITERS PER MINUTE _ 2L VIA NC AT NIGHT, PLEASE PRESCRIBE PORTABLE OXYGEN TOO NASAL CANNULA QHS (DX. G47.34), NOTES: 08/26 NIGHT TAKING BLOOD GLUCOSE TEST STRIP - STRIP 1 STRIP IN VITRO DAILY DX E11.9 TAKING BENADRYL ALLERGY 25 MG TABLET 2 TABS ORALLY BEFORE BEDTIME, NOTES: 08/27/182099 TAKING TIZANIDINE HCL 4 MG TABLET 1 TABLET NEEDED ORALLY EVERY 8 HRS, NOTES: 08/27/182099 TAKING TRAZODONE HCL 100 MG TABLET 1 TABLET AT BEDTIME ORALLY ONCE A DAY, NOTES: 08/27/182099 TAKING CIPRO 250 MG TABLET 1 TABLET ORALLY EVERY 12 HRS MEDICATION LIST REVIEWED AND RECONCILED WITH THE PATIENT PAST MEDICAL HISTORY CHRONIC CERVICALGIA - DDD, PREVIOUS ANTERIOR FUSION C5-C7 LUMBAGO DEPRESSION/ANXIETY BIPOLAR DISORDER HYPERTENSION TOBACCO ABUSE, IN REMISSION TRIGEMINAL NEURALGIA SYNDROME NEUROPATHY BILATERAL OCCIPITAL NEURALGIA ALLERGIES VICODIN: CAN'T FUNCTION: SIDE EFFECTS SURGICAL HISTORY C-SPINE FUSION LEFT KIDNEY SURGERY 2004 FAMILY HISTORY FATHER: 64 YRS, [place], DIAGNOSED WITH HEART DISEASE MOTHER: BREAST CANCER, DIAGNOSED WITH CANCER SIBLINGS: GLIOBLASTOMA, DIAGNOSED WITH CANCER 1 BROTHER(S) . SOCIAL HISTORY GENERAL: TOBACCO USE ARE YOU A:CURRENT SMOKER ARE YOU INTERESTED IN QUITTING?NOT READY TO QUIT COUNSELED THE PATIENT ON SMOKING EFFECTS, EDUCATION [id number]/17/2018 HOW MANY CIGARETTES A DAY DO YOU SMOKE?11-20 HOW SOON AFTER YOU WAKE UP DO YOU SMOKE YOUR FIRST CIGARETTE?6-30 MIN HOW OFTEN DO YOU SMOKE CIGARETTES?EVERY DAY PATIENT COUNSELED ON THE DANGERS OF TOBACCO USE AND URGED TO QUIT:08/10/2018 SMOKING CESSATION INFORMATION GIVEN 08/10/18 DECLINED BMI CARE GOAL FOLLOW-UP ABOVE NORMAL BMI FOLLOW-UPDIETARY MANAGEMENT EDUCATION, GUIDANCE, AND COUNSELING ALCOHOL SCREENING POINTS0 INTERPRETATIONNEGATIVE RECREATIONAL DRUG USE DENIES. CAFFEINE 2-5/DAY. 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 LEARNING BARRIERS / SPECIAL NEEDS CHANGE FROM LAST VISIT?NO BARRIERS TO LEARNING?NO HEARING IMPAIRED?NO VISION IMPAIRED?YES :CORRECTIVE LENSES READING GLASSES COGNITIVELY IMPAIRED?NO READINESS TO LEARN?YES LEARNING PREFERENCES?NO LEARNING CAPABILITIES PRESENT?YES EMOTIONAL BARRIERS?NO SPECIAL DEVICES?NO RISK SPECIALIST NEEDED?NO DOMESTIC VIOLENCE DO YOU FEEL SAFE IN YOUR ENVIRONMENT?YES OCCUPATION: DISABLED. DIET: REGULAR. EXERCISE: NONE. MARITAL STATUS: . OTHERS AT HOME: NONE. PAIN CLINIC PFS, CLERGY, PUBLIC HEALTH REFERRALS HAS THE PATIENT BEEN EDUCATED REGARDING HIS/HER PLAN OF CARE?YES HAS THE PATIENT BEEN EDUCATED REGARDING PAIN, THE RISK FOR PAIN, THE IMPORTANCE OF EFFECTIVE PAIN MANAGEMENT, AND THE PAIN ASSESSMENT PROCESS?YES HOUSING: RENTS APARTMENT. ADVANCE DIRECTIVE ADVANCE DIRECTIVE DISCUSSED WITH PATIENT:YES PT. STATES SHE DOES NOT HAVE A HCP AND DOES NOT WANT INFO OR ASSISTANCE FILLING ONE OUT AT THIS TIME. LAS REVIEWED WITH PT 07/05/18 1028 BV08/10/18 1155 REVIEWED WITH PT. AD08/28/18 1345 REVIEWED WITH PT STACY. HOSPITALIZATION/MAJOR DIAGNOSTIC PROCEDURE SURGERY MENTAL HEALTH 11/2014 [facility] FOR SEVERE HEADACHE 03/28 -04/26 [facility] - OVERDOSE IN MENTAL HEALTH 03/27/15 [facility] 07/08/15 [facility] MENTAL HEALTH 3-07-28 [facility] MENTAL HEALTH 01/15/16 [facility] - CELLULITIS IN BOTH LEGS 02/2016 [facility] MENTAL HEALTH AND SEIZURES 04/2016 [facility] - MENTAL HEALTH 04/30/16 REVIEW OF SYSTEMS REVIEWED BY: PROVIDER: . CONSTITUTIONAL: ANY CHANGE IN YOUR MEDICAL CONDITION? NO . CHILLS NO . FEVER NO . INFECTION: DO YOU HAVE NEW INFECTIONS? YES CURRENTLY BEING TREATED FOR A UTI . DO YOU HAVE HISTORY OF MRSA? NO . MUSCULOSKELETAL: ANY NEW PATTERNS OF PAIN OR NUMBNESS? PT REPORTS TINGLING DOWN BOTH ARMS, ON AND OFF FOR MONTHS . GASTROENTEROLOGY: ANY NEW CHANGE IN BOWEL CONTROL? NO . GENITOURINARY: ANY NEW CHANGE IN BLADDER CONTROL? NO . IS THERE A CHANCE YOU COULD BE ? NO . HEMATOLOGY/LYMPH: DO YOU TAKE ANY BLOOD THINNERS? (FOR EXAMPLE- COUMADIN, PLAVIX, AGGRENOX, PLATEL, PRADAXA, OR XARELTO) YES . WHEN WAS YOUR LAST DOSE? DATE:08/21 TIME: 0800 PLAVIX . NEUROLOGY: HAVE YOU FALLEN IN THE PAST 6 MONTHS? NO . ANY NEW EXTREMITY NUMBNESS OR WEAKNESS? NO . CARDIOLOGY: DO YOU HAVE A PACEMAKER OR DEFIBRILLATOR? NO . RESPIRATORY: HAVE YOU BEEN SICK IN THE PAST WEEK? NO . FEVER NO . FLU LIKE SYMPTOMS? NO . COUGH NO . INTEGUMENTARY: DO YOU HAVE ANY RASHES OR OPEN SORES? NO . ALLERGIC/IMMUNO: ARE YOU ALLERGIC TO SHELLFISH OR IV DYE? NO . ANY NEW ALLERGIES? NO . PSYCHIATRIC: DO YOU HAVE THOUGHTS OF HURTING YOURSELF OR SOMEONE ELSE? NO . ARE YOU ABUSED, NEGLECTED, OR IN AN UNSAFE ENVIRONMENT? NO . ENDOCRINOLOGY: ARE YOU DIABETIC? YES . OTHER: DO YOU NEED ANY PRESCRIPTIONS? NO . IF YES, PLEASE LIST: ____ . ANY NEW PROBLEMS WITH YOUR MEDICATIONS? NO . WHEN DID YOU LAST EAT? ____ . WHEN DID YOU LAST DRINK? ____ . WHAT DID YOU LAST DRINK? ____ . NAME OF PERSON DRIVING YOU HOME? ____ . DO YOU HAVE ANY OTHER QUESTIONS OR CONCERNS NO . VITAL SIGNS WT 209 LBS, HT 62.5 IN, BMI 37.61 INDEX, BP 165/83 MM HG, HR 94 /MIN, RR 16 /MIN, TEMP 97.0 F, OXYGEN SAT % 95%, SAFE IN ENV? (Y/N) YES, NA INITIALS WI 13:19, REVIEWED BY: STACY. ASSESSMENTS BILATERAL OCCIPITAL NEURALGIA - M54.81 (PRIMARY) PROCEDURES PN OCCIPITAL NERVE BLOCK GREATER PRE PROCEDURE DIAGNOSIS OCCIPITAL NEURALGIA. POST PROCEDURE DIAGNOSIS OCCIPITAL NEURALGIA. PROCEDURE BILATERAL GREATER OCCIPITAL NERVE BLOCK SURGEON DR. CARTER ASENCIO SILK SPREADER NONE ANESTHESIA LOCAL PRE PROCEDURE NOTE 58 YEAR-OLD PATIENT WITH HISTORY OF CHRONIC OCCIPITAL PAIN. THE PAIN IS LOCATED OVER THE OCCIPITAL AREA WITH RADIATION TOWARDS THE PARIETAL AREA OF THE CRANIUM. I EVALUATED THE PATIENT AND REVIEWED THE CHART. I WENT OVER THE RISKS, ALTERNATIVES, AND BENEFITS ASSOCIATED WITH THIS PROCEDURE. THE PATIENT WOULD LIKE TO PROCEED AND GAVE CONSENT TO PERFORM THE PROCEDURE. THE PATIENT DENIES UNEXPLAINABLE WEIGHT LOSS, FEVER, CHILLS, OR NEW CHANGES IN URINARY OR BOWEL CONTROL. DESCRIPTION OF PROCEDURE THE PATIENT WAS BROUGHT TO THE PROCEDURE ROOM AND PLACED IN THE SITTING POSITION. THE BILATERAL OCCIPITAL AREA WAS CLEANED WITH ALCOHOL. THE PROCEDURE WAS DONE USING STERILE TECHNIQUES. I CHECKED LATERALITY AND THE LEVEL WHERE THE PROCEDURE WAS GOING TO BE PERFORMED WITH THE PATIENT AND THE SUPPORTING STAFF AT THE MOMENT OF THE TIME OUT IN THE PROCEDURE ROOM. USING A 25-GAUGE NEEDLE, THE BILATERAL OCCIPITAL NERVE WERE INJECTED AT THE NUCHAL LINE, 1-INCH LATERAL OF MIDLINE. I USED A TOTAL OF 15 ML OF BUPIVACAINE 0.25% WITH KENALOG 20 MG AT EACH NERVE. THERE WAS NO EVIDENCE OF BLOOD, PARESTHESIA OR CEREBROSPINAL FLUID DURING THE PROCEDURE. THE PATIENT WAS SENT TO THE RECOVERY ROOM. THE PATIENT WAS MOVING THE EXTREMITIES AND DOING WELL. THERE WAS NO COMPLICATION DURING THE PROCEDURE. POST PROCEDURE NOTE THE PATIENT WILL BE SEEN IN A FOLLOW UP IN THE NEXT FEW WEEKS. INSTRUCTIONS WERE GIVEN, QUESTIONS WERE ANSWERED, AND THE PATIENT EXPRESSED UNDERSTANDING AND AGREED WITH THE PLAN. I, IVAN ARANDA, DOCUMENTED THE ABOVE INFORMATION ACTING A SCRIBE FOR DR. ASENCIO. I HAVE REVIEWED THE ABOVE DOCUMENT, WRITTEN BY IVAN ALLISON AND I VERIFY THAT IT IS ACCURATE. PROCEDURE CODES 94323 N BLOCK INJ OCCIPITAL, MODIFIERS: 50 DISPOSITION & COMMUNICATION FOLLOW UP 3 WEEKS ELECTRONICALLY SIGNED BY CARTER ASENCIO MD, MD ON 09/12/2018 AT 07:24 PM EST DISCLAIMER : THIS IS A VISIT SUMMARY EXTRACTED FROM THE [employer] CHART. IT IS NOT A COPY OF THE [employer] PROGRESS NOTE. MTDD
== END ==
LOC: M PAIN 13:15
PROVIDERS: ATTEND Anesthesiology
DX: M54.81 Occipital neuralgia (principal); M50.30 Other cervical disc degeneration, unspecified cervical region; F31.9 Bipolar disorder, unspecified; F41.9 Anxiety disorder, unspecified; I10 Essential (primary) hypertension; G50.0 Trigeminal neuralgia; E11.9 Type 2 diabetes mellitus without complications; F17.210 Nicotine dependence, cigarettes, uncomplicated; G62.9 Polyneuropathy, unspecified; Z98.1 Arthrodesis status; Z79.02 Long term (current) use of antithrombotics/antiplatelets; Z79.84 Long term (current) use of oral hypoglycemic drugs; Z79.899 Other long term (current) drug therapy; Z88.5 Allergy status to narcotic agent
CPT/HCPCS: 64405; J3301

== ENCOUNTER → 2018-10-04 | Outpatient (CLI) | payer MEDICARE, MEDICAID ==
[~2018-10-04] MED LIST changes: -AMLO10TA4 PO; +AMLO10TA5 PO; -BUPIVACAINE HCL 0.25% 10 ML VIAL As Ordered ONE; -BUPIVACAINE HCL 0.25% 30 ML VIAL As Ordered ONE; -GABA600T PO; +GABA600T4 PO; -LASI20TA PO; +LASI20TA3 PO; -LASI40TA PO; +LASI40TA9 PO; +LISI40TA PO; -LISI40TAB PO; +LOSA25TA14 PO; -LOSA25TA33 PO; -LOSA50TA73 PO; +LOSA50TA88 PO; +MILK120011 PO; -MILK12002 PO; -TRIAMCINOLONE ACETONIDE SUSP 40 MG/ML VIAL (J3301) As Ordered ONE
--- NOTE | 2018-10-17 01:25 | ECWPNPC ---
PATIENT NAME: ANISH OHARA : 1960 GENDER: FEMALE VISIT DATE: 10/04/2018 DISCHARGE DATE: 10/04/18 1622 VISIT LOCKED DATE TIME: PHYSICIAN: MARY NEGRETE RESOURCE: MARY NEGRETE REASON FOR APPOINTMENT 1. POST PROC HISTORY OF PRESENT ILLNESS HISTORY OF PRESENT ILLNESS: HERE FOR POST PROCEURE F/U.HAD BILAT.OCCIPITAL NERVE BLOCK ON 08-28-18.REPORTING NO IMPROVEMENT POST PROCEDURE WITH SOME AGGREVATION .RATING PAIN VAS 8/10.DESCRIBES HEAD AND NECK PAIN THAT IS CONTINUOUS ,SHARP AND STABBING. PAIN THE PATIENT DESCRIBES THE PAIN... THE PATIENT DESCRIBES THE PAIN... FALL RISK SCREENING: SCREENING :NO FALLS IN THE PAST YEAR CURRENT MEDICATIONS TAKING PLAVIX 75 MG TABLET 1 TABLET ORALLY ONCE A DAY TAKING TEGRETOL 200 MG TABLET 1 TABLET ORALLY TWICE A DAY TAKING TYLENOL 325 MG TABLET 1 TABLET NEEDED ORALLY EVERY 4 HRS TAKING LOSARTAN POTASSIUM 100 MG TABLET 1 TABLET ORALLY ONCE A DAY TAKING LASIX 40 MG TABLET 1 TABLET ORALLY ONCE A DAY NEEDED, NOTES: TAKES NEEDED TAKING METFORMIN HCL 1000 MG TABLET 1 TABLET WITH MEALS ORALLY TWICE A DAY TAKING JANUVIA 100 MG TABLET 1 TABLET ORALLY ONCE A DAY TAKING DIAZEPAM 2 MG TABLET 1 TABLET NEEDED ORALLY EVERY 8 HOURS TAKING OXYGEN 2 LITERS PER MINUTE _ 2L VIA NC AT NIGHT, PLEASE PRESCRIBE PORTABLE OXYGEN TOO NASAL CANNULA QHS (DX. G47.34) TAKING BLOOD GLUCOSE TEST STRIP - STRIP 1 STRIP IN VITRO DAILY DX E11.9 TAKING BENADRYL ALLERGY 25 MG TABLET 2 TABS ORALLY BEFORE BEDTIME TAKING TIZANIDINE HCL 4 MG TABLET 1 TABLET NEEDED ORALLY EVERY 8 HRS TAKING TRAZODONE HCL 100 MG TABLET 1 TABLET AT BEDTIME ORALLY ONCE A DAY TAKING MIRALAX - POWDER ORALLY , NOTES: NEEDED NOT-TAKING HYDROCODONE-ACETAMINOPHEN 5-325 MG TABLET 1 TABLET NEEDED ORALLY BID DISCONTINUED CIPRO 250 MG TABLET 1 TABLET ORALLY EVERY 12 HRS MEDICATION LIST REVIEWED AND RECONCILED WITH THE PATIENT PAST MEDICAL HISTORY CHRONIC CERVICALGIA - DDD, PREVIOUS ANTERIOR FUSION C5-C7 LUMBAGO DEPRESSION/ANXIETY BIPOLAR DISORDER HYPERTENSION TOBACCO ABUSE, IN REMISSION TRIGEMINAL NEURALGIA SYNDROME NEUROPATHY BILATERAL OCCIPITAL NEURALGIA ALLERGIES VICODIN: CAN'T FUNCTION: SIDE EFFECTS SURGICAL HISTORY C-SPINE FUSION LEFT KIDNEY SURGERY 2004 FAMILY HISTORY FATHER: 64 YRS, [place], DIAGNOSED WITH HEART DISEASE MOTHER: BREAST CANCER, DIAGNOSED WITH CANCER SIBLINGS: GLIOBLASTOMA, DIAGNOSED WITH CANCER 1 BROTHER(S) . SOCIAL HISTORY GENERAL: TOBACCO USE ARE YOU A:CURRENT SMOKER ARE YOU INTERESTED IN QUITTING?NOT READY TO QUIT COUNSELED THE PATIENT ON SMOKING EFFECTS, EDUCATION [id number]/17/2018 HOW MANY CIGARETTES A DAY DO YOU SMOKE?11-20 HOW SOON AFTER YOU WAKE UP DO YOU SMOKE YOUR FIRST CIGARETTE?6-30 MIN HOW OFTEN DO YOU SMOKE CIGARETTES?EVERY DAY PATIENT COUNSELED ON THE DANGERS OF TOBACCO USE AND URGED TO QUIT:08/10/2018 SMOKING CESSATION INFORMATION GIVEN 08/10/18 DECLINED BMI CARE GOAL FOLLOW-UP ABOVE NORMAL BMI FOLLOW-UPDIETARY MANAGEMENT EDUCATION, GUIDANCE, AND COUNSELING ALCOHOL SCREENING POINTS0 INTERPRETATIONNEGATIVE RECREATIONAL DRUG USE DENIES. CAFFEINE 2-5/DAY. SEXUAL HX HAD SEX IN THE LAST 12 MONTHS (VAGINAL, ORAL, OR ANAL)?NO HAVE YOU EVER HAD AN STD?NO LMP: TEMPLE [id number] [employer]ANG[employer]AGE [employer]OL[employer]. 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 LEARNING BARRIERS / SPECIAL NEEDS CHANGE FROM LAST VISIT?NO BARRIERS TO LEARNING?NO HEARING IMPAIRED?NO VISION IMPAIRED?YES :CORRECTIVE LENSES READING GLASSES COGNITIVELY IMPAIRED?NO READINESS TO LEARN?YES LEARNING PREFERENCES?NO LEARNING CAPABILITIES PRESENT?YES EMOTIONAL BARRIERS?NO SPECIAL DEVICES?NO RESTAURANT BARTENDER NEEDED?NO DOMESTIC VIOLENCE DO YOU FEEL SAFE IN YOUR ENVIRONMENT?YES OCCUPATION: DISABLED. DIET: REGULAR. EXERCISE: NONE. MARITAL STATUS: . OTHERS AT HOME: NONE. PAIN CLINIC PFS, CLERGY, PUBLIC HEALTH REFERRALS HAS THE PATIENT BEEN EDUCATED REGARDING HIS/HER PLAN OF CARE?YES HAS THE PATIENT BEEN EDUCATED REGARDING PAIN, THE RISK FOR PAIN, THE IMPORTANCE OF EFFECTIVE PAIN MANAGEMENT, AND THE PAIN ASSESSMENT PROCESS?YES HOUSING: RENTS APARTMENT. ADVANCE DIRECTIVE ADVANCE DIRECTIVE DISCUSSED WITH PATIENT:YES 10/04/18 PT. STATES SHE DOES NOT HAVE A HCP AND DOES NOT WANT INFO OR ASSISTANCE FILLING ONE OUT AT THIS TIME. BV REVIEWED WITH PT 07/05/18 1028 BV08/10/18 1155 REVIEWED WITH PT. AD08/28/18 1345 REVIEWED WITH PT LAS10/04/18 REVIEWED WITH PT 9611 BV. HOSPITALIZATION/MAJOR DIAGNOSTIC PROCEDURE SURGERY MENTAL HEALTH 11/2014 [facility] SEVERE [facility]ACHE 03/28 [facility] - OVERDOSE IN MENTAL HEALTH 03/27/15 [facility] 07/08/15 [facility] MENTAL HEALTH 11-21-15 [facility] MENTAL HEALTH 01/15/16 [facility] - CELLULITIS IN BOTH LEGS 02/2016 [facility] MENTAL HEALTH AND SEIZURES 04/2016 [facility] - MENTAL HEALTH 04/30/16 REVIEW OF SYSTEMS REVIEWED BY: PROVIDER: MARY PEOPLES . CONSTITUTIONAL: ANY CHANGE IN YOUR MEDICAL CONDITION? NO . CHILLS NO . FEVER NO . INFECTION: DO YOU HAVE NEW INFECTIONS? NO . DO YOU HAVE HISTORY OF MRSA? NO . MUSCULOSKELETAL: ANY NEW PATTERNS OF PAIN OR NUMBNESS? NO . GASTROENTEROLOGY: ANY NEW CHANGE IN BOWEL CONTROL? YES, PT COMPLAINS OF INTERMITTENT CONSTIPATION . GENITOURINARY: ANY NEW CHANGE IN BLADDER CONTROL? NO . IS THERE A CHANCE YOU COULD BE ? NO . HEMATOLOGY/LYMPH: DO YOU TAKE ANY BLOOD THINNERS? (FOR EXAMPLE- COUMADIN, PLAVIX, AGGRENOX, PLATEL, PRADAXA, OR XARELTO) YES, PLAVIX . WHEN WAS YOUR LAST DOSE? DATE: TIME: . NEUROLOGY: HAVE YOU FALLEN IN THE PAST 12 MONTHS? NO . ANY NEW EXTREMITY NUMBNESS OR WEAKNESS? NO . CARDIOLOGY: DO YOU HAVE A PACEMAKER OR DEFIBRILLATOR? NO . RESPIRATORY: HAVE YOU BEEN SICK IN THE PAST WEEK? NO . FEVER NO . FLU LIKE SYMPTOMS? NO . COUGH NO . INTEGUMENTARY: DO YOU HAVE ANY RASHES OR OPEN SORES? NO . ALLERGIC/IMMUNO: ARE YOU ALLERGIC TO IV DYE? NO . ANY NEW ALLERGIES? NO . PSYCHIATRIC: DO YOU HAVE THOUGHTS OF HURTING YOURSELF OR SOMEONE ELSE? NO . ARE YOU ABUSED, NEGLECTED, OR IN AN UNSAFE ENVIRONMENT? NO . ENDOCRINOLOGY: ARE YOU DIABETIC? YES . OTHER: DO YOU NEED ANY PRESCRIPTIONS? NO . IF YES, PLEASE LIST: ____ . ANY NEW PROBLEMS WITH YOUR MEDICATIONS? YES, PT COMPLAINS OF CONSTIPATION, CURRENTLY TAKING MIRALAX . WHEN DID YOU LAST EAT? ____ . WHEN DID YOU LAST DRINK? ____ . WHAT DID YOU LAST DRINK? ____ . NAME OF PERSON DRIVING YOU HOME? ____ . DO YOU HAVE ANY OTHER QUESTIONS OR CONCERNS NO . VITAL SIGNS WT 209 LBS, HT 62.5 IN, BMI 37.61 INDEX, BP 167/82 MM HG, HR 99 /MIN, RR 16 /MIN, TEMP 97.8 F, OXYGEN SAT % 95%, NA INITIALS AW 1455, REVIEWED BY: BV. EXAMINATION GENERAL EXAMINATION: GENERAL APPEARANCE:ALERT,NO DISTRESS . PSYCHAFFECT NORMAL . NECK:TRACHEA MIDLINE. NO CERVICAL OR SUPRACLAVICULAR LYMPHADENOPATHY NOTED . LUNGS:LUNG SOUNDS ARE CLEAR . HEART:HEART RATE REGULAR . CERVICALTENDERNESS OVER OCCIPITAL NERVES BILAT. NEUROLOGIC EXAM:CN'S NORMAL TESTED . DIAGNOSTIC TESTS REVIEWEDMRI [id number] . 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 IT IS NOT A COPY OF THE [employer] PROGRESS NOTE. [place]
== END ==
LOC: M PAIN 14:45
PROVIDERS: ATTEND Nurse Practitioner Family
DX: M47.892 Other spondylosis, cervical region (principal); F31.9 Bipolar disorder, unspecified; I10 Essential (primary) hypertension; F17.210 Nicotine dependence, cigarettes, uncomplicated; E11.9 Type 2 diabetes mellitus without complications; E66.9 Obesity, unspecified; Z68.37 Body mass index [BMI] 37.0-37.9, adult; Z86.59 Personal history of other mental and behavioral disorders; Z88.5 Allergy status to narcotic agent; Z79.01 Long term (current) use of anticoagulants; Z79.84 Long term (current) use of oral hypoglycemic drugs; Z79.899 Other long term (current) drug therapy

== ENCOUNTER 2019-01-04 06:03 | Emergency (ER) | payer MEDICARE, MEDICAID ==
[~2019-01-04] VITALS: Ht 165.1 cm; Wt 90.9 kg
[~2019-01-04 06:03] MED LIST changes: -/LAMO10TA OR; -/ONDA4TA SL; -/PANT40TA OR; -CITA20TA4 PO; +CITA20TA6 PO; +GENT0.3S36 OD; -GENT3OPD OD; +HYDR-3715 PO; -INDO50CA PO; +INDO50CA11 PO; +LAMI1TAB7 OR; -NORCOTAB PO; +ONDA-1 SL; +PROT1TAB2 OR; -QUET30XR; +SERO300T20
[2019-01-04 07:53] LABS: HEMATOCRIT 39.8 % (36.0-47.0); HEMOGLOBIN 13.2 g/dl (12.0-15.5); MEAN CORPUSCULAR HEMOGLOBIN 29.2 pg (27.0-33.0); MEAN CORPUSCULAR HGB CONC 33.2 g/dl (32.0-36.5); MEAN CORPUSCULAR VOLUME 88.1 fl (80.0-96.0); PLATELET COUNT, AUTOMATED 274 10^3/uL (150-450); RED BLOOD COUNT 4.52 10^6/uL (4.00-5.40); WHITE BLOOD COUNT 9.3 10^3/uL (4.0-10.0)
[2019-01-04 08:13] LABS: AMPHETAMINES LEVEL URINE NEGATIVE (NEGATIVE); BARBITURATES URINE NEGATIVE (NEGATIVE); BENZODIAZEPINES URINE POSITIVE (NEGATIVE); CANNABINOIDS URINE NEGATIVE (NEGATIVE); COCAINE METABOLITE URINE NEGATIVE (NEGATIVE); METHADONE URINE NEGATIVE (NEGATIVE); OPIATES URINE NEGATIVE (NEGATIVE); PHENCYCLIDINE URINE NEGATIVE (NEGATIVE)
[2019-01-04 08:23] LABS: ACETAMINOPHEN LEVEL 3.6 UG/ML (10.0-30.0); ALBUMIN 3.6 GM/DL (3.2-5.2); ALT/SGPT 26 U/L (12-78); BILIRUBIN,DIRECT < 0.1 MG/DL (0.0-0.2); BILIRUBIN,TOTAL 0.2 MG/DL (0.2-1.0); BLOOD UREA NITROGEN 19 MG/DL (7-18); CALCIUM LEVEL 9.2 MG/DL (8.5-10.1); CARBON DIOXIDE LEVEL 23 MEQ/L (21-32); CHLORIDE LEVEL 103 MEQ/L (98-107); CREATININE FOR GFR 1.03 MG/DL (0.55-1.30); ETHYL ALCOHOL (ETHANOL) < 0.003 % (0.000-0.010); GLOMERULAR FILTRATION RATE 58.8 (>51); GLUCOSE, FASTING 107 MG/DL (70-100); POTASSIUM SERUM 4.1 MEQ/L (3.5-5.1); SALICYLATE LEVEL 4.5 MG/DL (5.0-30.0); SODIUM LEVEL 135 MEQ/L (136-145); TOTAL PROTEIN 6.8 GM/DL (6.4-8.2)
[2019-01-04] MEDS ORDERED: ACETAMINOPHEN TAB 650MG DOSE (2X325MG) PO ONE (09:00)
[2019-01-04 11:37] VITALS: BP 140/84
[2019-01-04] MEDS ORDERED: LISI20TA3 PO (11:37)
[2019-01-04] MEDS ORDERED: FLON1SPR (11:37)
[2019-01-04] MEDS ORDERED: DIAZ5TAB PO (11:37)
[2019-01-04] MEDS ORDERED: INVE1.5T PO (11:37)
[2019-01-04] MEDS ORDERED: AMLO10TA5 PO (11:37)
== END 2019-01-04 12:04 | disposition home or self-care (01) ==
LOC: M ED 06:03
DX: F32.9 Major depressive disorder, single episode, unspecified (principal); Z91.5 Personal history of self-harm; M26.629 Arthralgia of temporomandibular joint, unspecified side; I11.9 Hypertensive heart disease without heart failure; I25.10 Atherosclerotic heart disease of native coronary artery without angina pectoris; N18.9 Chronic kidney disease, unspecified; E11.9 Type 2 diabetes mellitus without complications; M54.2 Cervicalgia; G47.30 Sleep apnea, unspecified; G43.909 Migraine, unspecified, not intractable, without status migrainosus; G50.0 Trigeminal neuralgia; Z95.5 Presence of coronary angioplasty implant and graft; Z98.1 Arthrodesis status; Z88.8 Allergy status to other drugs, medicaments and biological substances; Z88.7 Allergy status to serum and vaccine; Z79.899 Other long term (current) drug therapy; Z79.02 Long term (current) use of antithrombotics/antiplatelets; Z79.84 Long term (current) use of oral hypoglycemic drugs
CPT/HCPCS: 36415; 80048; 80076; 80307; 84443; 85027; 99284; G0480

== ENCOUNTER → 2019-04-12 | Outpatient (CLI) | payer MEDICARE, MEDICAID ==
[~2019-04-12] MED LIST changes: +AMIT50TA PO; +AUST6TAB PO; +AUST9TAB PO; +BANO25TA; +BUTO10SO; +CYAN100049 PO; +CYCL10TA; +DIAZ5TAB PO; +DIPH25CA32 PO; +FLUP25TA PO; +GABA600T4; +HYDR1TAB33 PO; -HYDRO50TAB PO; +INDO-16 PO; -INDO25CA PO; -INDO50CA11 PO; +INDO50CA91 PO; +INVE1.5T PO; +LISI20TA20 PO; +NICO2GUM52 PO; -NICO2GUM62 PO; +TIZA2CAP; -TRAZ-160 PO; +TRAZ-252 PO; -VITA10002 PO
[2019-04-12 15:00] LABS: BASO # 0.1 10^3/uL (0.0-0.2); BASO % 0.5 % (0.0-1.0); EOS # 0.3 10^3/uL (0.0-0.50); EOS % 2.6 % (0.0-3.0); HEMATOCRIT 43.3 % (36.0-47.0); HEMOGLOBIN 14.1 g/dl (12.0-15.5); LYMPH # 2.7 10^3/uL (1.5-4.5); LYMPH % 27.3 % (24.0-44.0); MEAN CORPUSCULAR HEMOGLOBIN 29.5 pg (27.0-33.0); MEAN CORPUSCULAR HGB CONC 32.6 g/dl (32.0-36.5); MEAN CORPUSCULAR VOLUME 90.6 fl (80.0-96.0); MONO # 0.6 10^3/uL (0.0-0.8); MONO % 5.7 % (0.0-5.0); NEUTROPHILS # 6.3 10^3/uL (1.8-7.7); NEUTROPHILS % 63.2 % (36.0-66.0); PLATELET COUNT, AUTOMATED 336 10^3/uL (150-450); RED BLOOD COUNT 4.78 10^6/uL (4.00-5.40)
[2019-04-12 15:24] LABS: BILIRUBIN,TOTAL 0.2 MG/DL (0.2-1.0); CALCIUM LEVEL 10.3 MG/DL (8.5-10.1); CREATININE FOR GFR 1.27 MG/DL (0.55-1.30); POTASSIUM SERUM 3.7 MEQ/L (3.5-5.1); TOTAL PROTEIN 7.7 GM/DL (6.4-8.2)
== END ==
LOC: M WUC 13:44
PROVIDERS: ATTEND Physician Assistant
DX: M79.662 Pain in left lower leg (principal)
CPT/HCPCS: 36415; 80053; 83880; 85025; 85379; G0463

== ENCOUNTER 2019-05-09 16:52 | Inpatient (IN) | payer MEDICARE, MEDICAID ==
[~2019-05-09] VITALS: Ht 165.1 cm; Wt 88.3 kg
[~2019-05-09 16:52] MED LIST changes: -AMIT50TA PO; -AUST6TAB PO; -AUST9TAB PO; -BANO25TA; -BUTO10SO; -CYCL10TA; -DIPH25CA32 PO; -FLUP25TA PO; -GABA600T4; -NICO2GUM52 PO; +NICO2GUM62 PO; -TIZA2CAP
[2019-05-09] MEDS ORDERED: ACETAMINOPHEN TAB 650MG DOSE (2X325MG) PO ONE (17:30)
[2019-05-09 17:44] LABS: HEMATOCRIT 44.3 % (36.0-47.0); HEMOGLOBIN 14.8 g/dl (12.0-15.5); MEAN CORPUSCULAR HEMOGLOBIN 30.3 pg (27.0-33.0); MEAN CORPUSCULAR HGB CONC 33.4 g/dl (32.0-36.5); MEAN CORPUSCULAR VOLUME 90.6 fl (80.0-96.0); PLATELET COUNT, AUTOMATED 270 10^3/uL (150-450); RED BLOOD COUNT 4.89 10^6/uL (4.00-5.40); WHITE BLOOD COUNT 9.1 10^3/uL (4.0-10.0)
[2019-05-09] MEDS ORDERED: CYCL10TA (17:44)
[2019-05-09] MEDS ORDERED: BANO25TA (17:44)
[2019-05-09] MEDS ORDERED: TIZA2CAP (17:44)
[2019-05-09] MEDS ORDERED: GABA600T4 (17:45)
[2019-05-09 18:05] LABS: AMPHETAMINES LEVEL URINE NEGATIVE (NEGATIVE); BARBITURATES URINE NEGATIVE (NEGATIVE); BENZODIAZEPINES URINE POSITIVE (NEGATIVE); CANNABINOIDS URINE NEGATIVE (NEGATIVE); COCAINE METABOLITE URINE NEGATIVE (NEGATIVE); METHADONE URINE NEGATIVE (NEGATIVE); OPIATES URINE NEGATIVE (NEGATIVE); PHENCYCLIDINE URINE NEGATIVE (NEGATIVE)
[2019-05-09 18:14] LABS: ACETAMINOPHEN LEVEL 5.3 UG/ML (10.0-30.0); ALT/SGPT 30 U/L (12-78); BILIRUBIN,DIRECT < 0.1 MG/DL (0.0-0.2); BILIRUBIN,TOTAL 0.1 MG/DL (0.2-1.0); BLOOD UREA NITROGEN 18 MG/DL (7-18); CALCIUM LEVEL 10.3 MG/DL (8.5-10.1); CARBAMAZEPINE (TEGRETOL) LEVEL < 0.5 UG/ML (4.0-10.0); CARBON DIOXIDE LEVEL 23 MEQ/L (21-32); CHLORIDE LEVEL 107 MEQ/L (98-107); CREATININE FOR GFR 0.96 MG/DL (0.55-1.30); ETHYL ALCOHOL (ETHANOL) < 0.003 % (0.000-0.010); GLOMERULAR FILTRATION RATE > 60.0 (>51); GLUCOSE, FASTING 103 MG/DL (70-100); POTASSIUM SERUM 4.2 MEQ/L (3.5-5.1); SALICYLATE LEVEL 4.9 MG/DL (5.0-30.0); SODIUM LEVEL 139 MEQ/L (136-145); TOTAL PROTEIN 7.5 GM/DL (6.4-8.2)
[2019-05-09] MEDS ORDERED: MAALOX 30 ML SUSP *UDC PO PRN (21:15)
[2019-05-09] MEDS ORDERED: MOM 30ML SUSPENSION UDC PO PRN (21:15)
[2019-05-09] MEDS ORDERED: traZODone 50 MG TAB PO PRN (21:15)
[2019-05-09] MEDS ORDERED: DIPH25CA32 PO (22:40)
[2019-05-09] MEDS ORDERED: AUST9TAB PO (22:40)
[2019-05-09] MEDS ORDERED: AUST6TAB PO (22:40)
[2019-05-09] MEDS ORDERED: CYCL10TA PO (22:40)
[2019-05-09] MEDS ORDERED: GABA600T4 PO (22:40)
[2019-05-09] MEDS ORDERED: BUTO10SO (22:40)
[2019-05-09] MEDS ORDERED: FLUP5TA PO (22:40)
[2019-05-09] MEDS ORDERED: FLUP25TA PO (22:40)
[2019-05-09 23:24] VITALS: BP 140/75
[2019-05-10 06:40] VITALS: BP 143/83
--- NOTE | 2019-05-10 11:23 | MHHPEPDOC ---
General Date Of Admission: May 09, 2019 Legal Status: 9.39 Chief Complaint " I have this wicked pain in my jaw." History of Present Illness HISTORY OF THE PRESENT ILLNESS: Per ED Patient is a 59 -year-old , female, who presents to the ER claiming "it would be better if I just fell asleep and didn't wake up." Pt has had multiple admissions in the past due to depression as well as pain from Trigeminal Neuralgia. Pt complains she has been severely depressed recently due to the pain. She mostly sleeps all day and lacks any energy to get up. Patient denies any SI or plan, however she does claim she attempted 4 years ago by cutting her wrists. Patient had been taking Trazodone, Diazepam, Diphenhydramine, Tizanidine, Cyclobenzaprine, and Gabapentin. Her mother called the ED and explained she's worried because her daughter has just been sleeping all day recently and doesn't get out of bed. Psychiatric Review of Systems Depression (2 or more weeks): depressed mood ("I'm up and down"), anhedonia ("I just have given up"), insomnia/hypersomnia (Pt would not even leave her bed), feelings of worthlesness, decreased energy, appetite changes Raiza (4 or more days of): denies Psychosis: denies PTSD: denies Anxiety: stressor related anxiety ("I have anxiety about all of this tightening and pain") Anxiety/ 6 months or more of: restlessness, keyed up, difficulty concentrating, irritability, muscle tension, sleep disturbance Past Psychiatric History Previous Psychiatric Diagnosis: MDD Previous Psychiatric Admissions: over 20 admits to [facility] all for same complaint of chronic pain, last 12/26/17 Suicide Attempts: denies Psychiatric Follow-up: [facility] Psychiatric medications: multiple Past Medical History Medical Problems C5-7 fusion with metal plate due to hard labor, HTN, DM2, CAD Current Psychiatric mediations: Diazepam, Diphenhydramine, Tizanidine, Cyclobenzaprine, and Gabapentin. Head Injury: No Seizures: No Hospitalizations: Yes Surgeries: Yes (C5-7 fusion with metal plate due to hard labor, HTN, DM2, CAD) Family Medical/Psychiatric HX Medical Problems brother on cocaine, from chronic use Psychiatric Disorders: No Addiction: Yes (brother-cocaine) Suicide Attemps/Completions: No Addiction History nicotine (1 pack/day), alcohol (social use) Social History Childhood: Childhood: Born in [place], father when he was 64 about 9 years old, finished [employer], worked at [employer], disabled, lives alone, , no children Abuse/Trauma:denies Current Living Situation: lives alone in [place] with her cat Education: finished HS Employment: worked at [employer] and now on [employer] Social Support: mother Legal: denies Marital: , no kids Mental Status Examination General Appearance: unkempt, disheveled, appears stated age, hospital scubs/clothing, other (refusing to get out of bed) Build: overweight Demeanor: withdrawn, other (Tearful and extremely morose) Eye Contact: fair Activity: slowed, other (Would not leave bed) Behavior: cooperative, resistant, loss of interests ("I've given up on everything), anhedonia, withdrawn Speech: slow, reg/rate,rhythm,volume Mood: depressed, anxious, irritable Mood "If I didn't have this pain I wouldn't be so depressed" Affect: constricted, anxious, other (Patient is tearful and visibly depressed) Thought Process: logical/linear, depressed, slow Thought Content (Delusions): none reported, denies SI, HI, AVH Thought Content (Other): preoccupied (with her pain), obsessional (patient is hyperfocused on her pain (somatizing it)) Thought Content (Aggressive): none reported Perception (Hallucinations): none reported Perception (Other): none reported Cognition (Impairment of): none reported Cognition(Intelligence Est.): average Oriented: Oriented times three Insight: fair Judgment: Fair Psychosis: Denies Diagnoses 1. bipolar II disorder 2. 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 dependent personality disorder 4. r/o malingering d/o A-FIB/CHADSVASC A-FIB History Current/History of A-Fib/PAF?: No Assessment Pt is visibly depressed and states "I really ill". She refused to leave her bed during encounter .with medical student but did come in the office to see me when asked to. Told medical student "I can't even walk." Pt proceeds to describe the pain from her Trigeminal Neuralgia in detail. She explains "I wouldn't be so depressed if I didn't have this pain." She is anhedonic "I've given up on everything," hyper-somatic, and lacks appetite. She believes her moods are "up and down" explaining she has sudden energy surges from the pain. Pt denies any Suicidal Ideations or a plan however explains she would rather fall asleep and not wake up. She has a history 4 years ago of cutting her wrists. She also claims to have anxiety stemming from all of her pain. She has panic attacks "where I can't even control my breathing." Patient is currently taking Diazepam which she states she's been taking tid as prescribed, Diphenhydramine, Tizanidine, Cyclobenzaprine, and Gabapentin. However she doesn't feel like any of the medications are working and would rather stop them. She also claims to currently being treated for Tardive Dyskinesia but does appear to have any of the movement symptoms associated with TD. Patient denies any AVH, or SI/HI. She feels safe here. Our interview ended with the patient bursting into tears, lying back down on her bed and not speaking. Spoke to pt about starting her on amitriptyline for trigeminal nerve pain as it is more specific to treat the pain and will start titrating her off her valium as that most likely why she can't ge t up and have energy during the day due to the amount she's been taking. Stated ok. Initial Treatment Plan 1. Patient was admitted on a 9.39 status. 2. Complete history was obtained. 3. With patients permission, family will be contacted and database will be expanded. 4. Patients medication regimen will be reviewed and changed accordingly. 5. Patient will be provided with protected environment. 6. Patient will be treated with individual, group, and milieu therapies. 7. Patient will receive supportive psych-education. 8. Discharge planning will commence immediately. 9. Outpatient follow-up treatment will be strongly recommended. 10. The initial treatment plan will focus initially on: * Depression. * Risk for suicide. 11. change valium 5mg to bid, start amitriptyline for trigeminal nerve pain ESTIMATED LENGTH OF STAY: 7-9 DAYS. TIME SPENT COUNSELING AND COORDINATING INITIAL CARE: 30 minutes. Vital Signs Vital Signs Date Time Temp Pulse Resp B/P (MAP) Pulse Ox O2 Delivery O2 Flow Rate FiO2 8/29/19 08:20 Room Air 05/10/19 06:40 98.6 89 14 143/83 (103) 05/09/19 23:24 94 Laboratory Data 24H Labs Laboratory Tests 2 05/09/19 17:29: Nucleated Red Blood Cells % (auto) 0.0, Anion Gap 9, Glomerular Filtration Rate > 60.0, Calcium Level 10.3H, Aspartate Amino Transf (AST/SGOT) 16, Alanine Aminotransferase (ALT/SGPT) 30, Alkaline Phosphatase 79, Total Bilirubin 0.1L, Direct Bilirubin < 0.1, Total Protein 7.5, Albumin 4.0, Albumin/Globulin Ratio 1.14, Thyroid Stimulating Hormone (TSH) 1.560, Salicylates Level 4.9L, Urine Amphetamines Screen NEGATIVE, Urine Benzodiazepines Screen POSITIVEH, Urine Opiates Screen NEGATIVE, Urine Methadone Screen NEGATIVE, Acetaminophen Level 5.3L, Urine Barbiturates Screen NEGATIVE, Carbamazepine (Tegretol) Level < 0.5L, Urine Phencyclidine Screen NEGATIVE, Urine Cocaine Metabolite Screen NEGATIVE, Urine Cannabinoids Screen NEGATIVE, Ethyl Alcohol Level < 0.003 CBC/BMP Laboratory Tests 05/09/19 17:29 Red Blood Count 4.89, Mean Corpuscular Volume 90.6, Mean Corpuscular Hemoglobin 30.3, Mean Corpuscular Hemoglobin Concent 33.4, Red Cell Distribution Width 13.3 Medications Scheduled Amlodipine Besylate (Amlodipine Besylate) 10 Mg Tablet, 10 MG PO DAILY, (Reported) Clopidogrel Bisulfate (Plavix) 75 Mg Tab, 75 MG PO DAILY, (Reported) Deutetrabenazine (Austedo) 6 Mg Tablet, 6 MG PO BID, (Reported) TAKES WITH 9MG FOR 15MG TOTAL PER DOSE Deutetrabenazine (Austedo) 9 Mg Tablet, 9 MG PO BID, (Reported) TAKES WITH 6MG FOR 15MG PER DOSE Fluphenazine HCl (Fluphenazine HCl) 2.5 Mg Tablet, 2.5 MG PO TID, (Reported) TAKES WITH 5MG FOR 7.5MG PER DOSE Fluphenazine HCl (Fluphenazine HCl) 5 Mg Tablet, 5 MG PO TID, (Reported) TAKES WITH 2.5MG FOR 7.5MG PER DOSE Gabapentin (Gabapentin) 600 Mg Tablet, 600 MG PO QHS, (Reported) Lisinopril/Hydrochlorothiazide (Lisinopril-Hctz 20-25 mg Tab) 1 Each Tablet, 1 TAB PO DAILY, (Reported) Metformin HCl (Metformin HCl) 1,000 Mg Tab, 1,000 MG PO BID, (Reported) Scheduled PRN Butorphanol Tartrate (Butorphanol Tartrate) 10 Mg/1 Ml [place], 1 SPRAY NA Q6H PRN for HEADACHE, (Reported) IN ONE NOSTRIL, ALTERNATING PER DOSE Cyclobenzaprine HCl (Cyclobenzaprine HCl) 10 Mg Tablet, 10 MG PO TID PRN for MUSCLE SPASMS, (Reported) Diazepam (Diazepam) 5 Mg Tablet, 5 MG PO TID PRN for ANXIETY, (Reported) Diphenhydramine HCl (Diphenhydramine HCl) 25 Mg Capsule, 25 MG PO Q8H PRN for RELAXATION, (Reported) Furosemide (Lasix) 40 Mg Tab, 40 MG PO DAILY PRN for SWELLING, (Reported) Trazodone HCl (Trazodone HCl) 100 Mg Tab, 100 MG PO QHS PRN for SLEEP, (Reported) Allergies Coded Allergies: Tetanus Vaccines and Toxoid (Verified Allergy, Unknown, 01/04/19) metoprolol (Verified Adverse Reaction, Unknown, SECOND DEGREE HEART BLOCK, 01/04/19) ANNE ANTONIO DO May 10, 2019 10:26
[2019-05-10] MEDS ORDERED: FUROSEMIDE 40 MG TAB PO PRN (11:30)
[2019-05-10] MEDS: amLODIPine 10 MG TAB PO SCH (12:43)
[2019-05-10] MEDS: ACETAMINOPHEN TAB 650MG DOSE (2X325MG) PO PRN (17:39)
[2019-05-10 18:00] VITALS: BP 122/70
--- NOTE | 2019-05-10 20:41 | ECGEPIP ---
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
[2019-05-10] MEDS ORDERED: IPRATROPIUM 0.5MG/ALBUTEROL 2.5MG INH SOL UD 3ML (DUONEB)(J7620) NEB PRN (21:15)
--- NOTE | 2019-05-10 21:19 | CR.PDOC ---
General Date of Consultation: May 10, 2019 Attending Physician: LA SOLOMON DO Consultation REASON FOR CONSULTATION/CHIEF COMPLAINT: Headache, shortness of breath, chest pa in HISTORY OF PRESENT ILLNESS: Patient is 59 years old female with past medical history significant for hypertension, bilateral trigeminal neuralgia, coronary artery diseases status post stent placement in 2017, occipital cervicalgia presented to the hospital with somnolent state. During my interview patient complains of severe jaw pain, occipital pain, frontal headache. Also patient stated that she has increased cough with yellowish sputum production. Also she stated that today she did have intermittent chest pain, 7 out of 10, lasted 5-7 minutes with no radiation. Of note, patient received treatment in the pain clinic for trigeminal neuralgia syndrome and chronic cervicalgia. ALLERGIES: Please see below. HOME MEDICATIONS: Please see below. PAST MEDICAL HISTORY: CHRONIC CERVICALGIA - DDD, PREVIOUS ANTERIOR FUSION C5-C7 LUMBAGO DEPRESSION/ANXIETY BIPOLAR DISORDER HYPERTENSION TOBACCO ABUSE, IN REMISSION TRIGEMINAL NEURALGIA SYNDROME NEUROPATHY BILATERAL OCCIPITAL NEURALGIA Diabetes, hypertension, coronary artery diseases, status post cardiac stent plac ement FAMILY HISTORY: Father: from heart attack Mother: Breast cancer SOCIAL HISTORY: Tobacco use: Active smoker for many years one pack a day ETOH: None Illicit drug use: None REVIEW OF SYSTEMS: 10 point review of systems negative except what listed in HPI PHYSICAL EXAMINATION: VITAL SIGNS: See below GENERAL APPEARANCE: In moderate distress HEENT: PERRLA, EOMI RESPIRATORY: Expiratory wheezes bilaterally CARDIOVASCULAR: S1-S2 ABDOMEN: Nontender nondistended EXTREMITIES: No cyanosis no swelling NEUROLOGICAL: Cranial nerves from 2-12 intact, tenderness on palpation of occipital and jaw area PSYCHIATRIC: . LABORATORY DATA: Please see below. 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1960 Requested By: Ezekiel Stiles Order Number: [id number] Gary MD: Irasema Miramontes Measurements Intervals [place] Rate: 79 P: 60 NV: 237 QRS: -81 QRSD: 147 T: 27 QT: 411 QTc: 473 Interpretive Statements SINUS RHYTHM WITH FIRST DEGREE AV BLOCK POSSIBLE LEFT ATRIAL ENLARGEMENT RIGHT BUNDLE BRANCH BLOCK INFERIOR MYOCARDIAL INFARCTION, OF INDETERMINATE AGE ANTEROLATERAL MYOCARDIAL INFARCTION, OF INDETERMINATE AGE Electronically Signed on 05-10-2019 20:40:53 EDT by Irasema Miramontes ASSESSMENT/PLAN: Patient is 59 years old female with past medical history significant for bilateral trigeminal neuralgia, hypertension, coronary artery disease, diabetes presented hospital with somnolent state. Headache Secondary to occipital cervicalgia, bilateral trigeminal neuralgia Neurologist consult Pain clinic consult Hypertension Continue home medication lisinopril and amlodipine COPD exacerbation Doxycycline 100 mg twice a day for 10 days Chest x-ray Incentive spirometry Sputum culture DuoNeb Chest pain Patient has complicated cardiac history Troponin series desk monitor Homeowner Association Manager consult for possible stress test Echo Plavix daily Diabetes type 2 Continue metformin, glucose level under control Diabetes diet Vital Signs/I&O Vital Signs Date Time Temp Pulse Resp B/P (MAP) Pulse Ox O2 Delivery O2 Flow Rate FiO2 05/10/19 18:00 98.3 92 16 122/70 (87) 05/10/19 08:20 Room Air 05/09/19 23:24 94 Allergies Coded Allergies: Tetanus Vaccines and Toxoid (Verified Allergy, Unknown, 01/04/19) metoprolol (Verified Adverse Reaction, Unknown, SECOND DEGREE HEART BLOCK, 01/04/19) Home Medications Scheduled Amlodipine Besylate (Amlodipine Besylate) 10 Mg Tablet, 10 MG PO DAILY, (Reported) Clopidogrel Bisulfate (Plavix) 75 Mg Tab, 75 MG PO DAILY, (Reported) Deutetrabenazine (Austedo) 6 Mg Tablet, 6 MG PO BID, (Reported) TAKES WITH 9MG FOR 15MG TOTAL PER DOSE Deutetrabenazine (Austedo) 9 Mg Tablet, 9 MG PO BID, (Reported) TAKES WITH 6MG FOR 15MG PER DOSE Fluphenazine HCl (Fluphenazine HCl) 2.5 Mg Tablet, 2.5 MG PO TID, (Reported) TAKES WITH 5MG FOR 7.5MG PER DOSE Fluphenazine HCl (Fluphenazine HCl) 5 Mg Tablet, 5 MG PO TID, (Reported) TAKES WITH 2.5MG FOR 7.5MG PER DOSE Gabapentin (Gabapentin) 600 Mg Tablet, 600 MG PO QHS, (Reported) Lisinopril/Hydrochlorothiazide (Lisinopril-Hctz 20-25 mg Tab) 1 Each Tablet, 1 TAB PO DAILY, (Reported) Metformin HCl (Metformin HCl) 1,000 Mg Tab, 1,000 MG PO BID, (Reported) Scheduled PRN Butorphanol Tartrate (Butorphanol Tartrate) 10 Mg/1 Ml [place], 1 SPRAY NA Q6H PRN for HEADACHE, (Reported) IN ONE NOSTRIL, ALTERNATING PER DOSE Cyclobenzaprine HCl (Cyclobenzaprine HCl) 10 Mg Tablet, 10 MG PO TID PRN for MUSCLE SPASMS, (Reported) Diazepam (Diazepam) 5 Mg Tablet, 5 MG PO TID PRN for ANXIETY, (Reported) Diphenhydramine HCl (Diphenhydramine HCl) 25 Mg Capsule, 25 MG PO Q8H PRN for RELAXATION, (Reported) Furosemide (Lasix) 40 Mg Tab, 40 MG PO DAILY PRN for SWELLING, (Reported) Trazodone HCl (Trazodone HCl) 100 Mg Tab, 100 MG PO QHS PRN for SLEEP, (Reported) LA SOLOMON DO May 10, 2019 21:18
[2019-05-10] MEDS: GABAPENTIN 300 MG CAP PO SCH (21:54)
[2019-05-10] MEDS: AMITRIPTYLINE 50 MG TAB PO SCH (21:54)
[2019-05-10] MEDS: DOXYCYCLINE HYCLATE 100 MG TAB PO SCH (21:54)
[2019-05-10] MEDS: metFORMIN (GLUCOPHAGE) 1000 MG TABLET PO SCH (21:54)
[2019-05-10 22:14] LABS: CK-MB VALUE MASS < 1.0 NG/ML (<3.6); CPK CREATINE PHOSPHOKINASE 44 U/L (26-192); MB/CK RELATIVE INDEX 2.27 (< OR =4); TROPONIN I < 0.02 NG/ML (< 0.10)
--- NOTE | 2019-05-10 23:05 | REPVR ---
EXAM: XR Chest, 2 Views EXAM DATE/TIME: 05/10/2019 10:20 PM CLINICAL HISTORY: 59 years old, female; Shortness of breath; Additional info: Copd, stat read TECHNIQUE: Imaging protocol: XR of the chest, 2 views. COMPARISON: CR Chest, 2 view PA, Lat 03/30/2016 1:33 PM FINDINGS: Lungs: Mild hyperinflation of the lungs. No focal consolidation. Linear atelectasis or scarring in the left lung base, stable. Pleural space: Unremarkable. No pleural effusion. No pneumothorax. Heart/Mediastinum: Unremarkable. No cardiomegaly. Bones/joints: Anterior cervical fusion. IMPRESSION: Mild hyperinflation of the lungs. No focal consolidation. Linear atelectasis or scarring in the left lung base, stable. Electronically signed by: Chayo Nunez On 05/10/2019 23:05:40 PM
[2019-05-11] MEDS ORDERED: UNRESOLVED CLARIFICATION ENTRY XX SCH (00:01)
[2019-05-11 06:39] VITALS: BP 148/67
[2019-05-11] MEDS: CLOPIDOGREL 75 MG TAB PO SCH (09:07)
[2019-05-11] MEDS: amLODIPine 10 MG TAB PO SCH (09:07)
[2019-05-11] MEDS: metFORMIN (GLUCOPHAGE) 1000 MG TABLET PO SCH ×2 (09:07→21:46)
[2019-05-11] MEDS: DOXYCYCLINE HYCLATE 100 MG TAB PO SCH ×2 (09:07→21:46)
--- NOTE | 2019-05-11 09:41 | MHIPNPDOC ---
[facility] Progress Note Progress Note DATE OF SERVICE: 05/11/19 HISTORY: Per ED Patient is a 59 -year-old , female, who presents to the ER claiming "it would be better if I just fell asleep and didn't wake up." Pt has had multiple admissions in the past due to depression as well as pain from Trigeminal Neuralgia. Pt complains she has been severely depressed recently due to the pain. She mostly sleeps all day and lacks any energy to get up. Patient denies any SI or plan, however she does claim she attempted 4 years ago by cutting her wrists. Patient had been taking Trazodone, Diazepam, Diphe nhydramine, Tizanidine, Cyclobenzaprine, and Gabapentin. Her mother called the ED and explained she's worried because her daughter has just been sleeping all day recently and doesn't get out of bed. Pt is visibly depressed and states "I really ill". She refused to leave her bed during encounter .with medical student but did come in the office to see me when asked to. Told medical student "I can't even walk." Pt proceeds to describe the pain from her Trigeminal Neuralgia in detail. She explains "I wouldn't be so depressed if I didn't have this pain." She is anhedonic "I've given up on everything," hyper-somatic, and lacks appetite. She believes her moods are "up and down" explaining she has sudden energy surges from the pain. Pt denies any Suicidal Ideations or a plan however explains she would rather fall asleep and not wake up. She has a history 4 years ago of cutting her wrists. She also claims to have anxiety stemming from all of her pain. She has panic attacks "where I can't even control my breathing." Patient is currently taking Diazepam which she states she's been taking tid as prescribed, Diphenhydramine, Tizanidine, Cyclobenzaprine, and Gabapentin. However she doesn't feel like any of the medications are working and would rather stop them. She also claims to currently being treated for Tardive Dyskinesia but does appear to have any of the movement symptoms associated with TD. Patient denies any AVH, or SI/HI. She feels safe here. Our interview ended with the patient bursting into tears, lying back down on her bed and not speaking. Spoke to pt about starting her on amitriptyline for trigeminal nerve pain as it is more specific to treat the pain and will start titrating her off her valium as that most likely why she can't get up and have energy during the day due to the amount she's been taking. Stated ok. VITAL SIGNS: See below. NEW TEST RESULTS: See below XR Chest, 2 Views EXAM DATE/TIME: 05/10/2019 10:20 PM CLINICAL HISTORY: 59 years old, female; Shortness of breath; Additional info: Copd, stat read COMPARISON: CR Chest, 2 view PA, Lat 03/30/2016 1:33 PM FINDINGS: Lungs: Mild hyperinflation of the lungs. No focal consolidation. Linear atelectasis or scarring in the left lung base, stable. Pleural space: Unremarkable. No pleural effusion. No pneumothorax. Heart/Mediastinum: Unremarkable. No cardiomegaly. Bones/joints: Anterior cervical fusion. IMPRESSION: Mild hyperinflation of the lungs. No focal consolidation. Linear atelectasis or scarring in the left lung base, stable. CURRENT MEDICATIONS: See below. MENTAL STATUS EXAMINATION: General Appearance: unkempt, disheveled, appears stated age, hospital scubs/clothing, other (refusing to get out of bed) Build: overweight Demeanor: withdrawn, other (Tearful and extremely morose) Eye Contact: fair Activity: slowed, other (Would not leave bed) Behavior: cooperative, resistant, loss of interests ("I've given up on everything), anhedonia, withdrawn Speech: slow, reg/rate,rhythm,volume Mood: depressed, anxious, irritable Mood "If I didn't have this pain I wouldn't be so depressed" Affect: constricted, anxious, other (Patient is tearful and visibly depressed) Thought Process: logical/linear, depressed, slow Thought Content (Delusions): none reported, denies SI, HI, AVH Thought Content (Other): preoccupied (with her pain), obsessional (patient is hyper-focused on her pain (somatizing it)) Thought Content (Aggressive): none reported Perception (Hallucinations): none reported Perception (Other): none reported Cognition (Impairment of): none reported Cognition(Intelligence Est.): average Oriented: Oriented times three Insight: fair Judgment: Fair Psychosis: Denies DIAGNOSES: 1. bipolar II disorder 2. 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 dependent personality disorder 4. r/o malingering d/o ASSESSMENT:Pt seen and states she is feeling "a little better" as her trigeminal nerve pain is mildly improved with start of amitriptyline yesterday that she's tolerating well. Complaint of head and back pain today but is showered, present in the milieu and dose appear to be in less pain which is allowing for her mood to improve. States she's not a person that normal lays in bed all day and is trying to be up during the day to "loosen up" and improve her back pain. She is tolerating decrease in valium dosing and will continue to titrate off thru treatment. Day time fatigue and low energy appears in proved with taking valium less often. hed episode of chest pain last night and cardiac enzymes increased although tropinin wnl, chest x-ray down with findings listed above. Pt to be seen by hospitalist today regarding recent chest pain and chest x-ray findings. Pt encouraged to ambulated during the day to improve lung hyperinflation. Denies chest pain today. Encouraged to attend groups as part of treatment plan. She still appears considerably depressed with psycho retardation and flat affect. Denies SI/HI, hallucinations, delusions. Feels safe here. MANAGEMENT PLAN: titrate of valium Medications: valium 5mg to bid amitriptyline for trigeminal nerve pain TIME SPENT: 30 minutes. Vital Signs Vital Signs Date Time Temp Pulse Resp B/P (MAP) Pulse Ox O2 Delivery O2 Flow Rate FiO2 05/11/19 09:07 88 148/67 05/11/19 06:39 98.3 16 05/10/19 08:20 Room Air 05/09/19 23:24 94 Laboratory Data 24H Labs Laboratory Tests 2 05/10/19 21:34: Total Creatine Kinase 44, Creatine Kinase MB < 1.0, Creatine Kinase MB Relative Index 2.27, Troponin I < 0.02 Current Medications Current Medications Medications (Trade) Dose Ordered Sig/Rao Route PRN Reason Start Time Stop Time Status Last Admin Dose Admin Acetaminophen (Tylenol Tab) 650 mg Q6HP PRN PO HEADACHE or DISCOMFORT 05/09/19 21:15 05/10/19 17:39 Al Hydrox/Mg Hydrox/Simethicone (Mylanta) 30 ml Q4HP PRN PO HEARTBURN/INDIGESTION 05/09/19 21:15 Albuterol/ Ipratropium (Duoneb (Ipr 0.5mg/Alb 2.5mg)) 3 ml Q4HP PRN NEB DYSPNEA 05/10/19 21:15 Amitriptyline HCl (Elavil) 50 mg QHS PO 05/10/19 21:00 05/10/19 21:54 Amlodipine Besylate (Norvasc) 10 mg DAILY PO 05/10/19 09:00 05/11/19 09:07 Clopidogrel Bisulfate (PLAVix) 75 mg DAILY PO 05/11/19 09:00 05/11/19 09:07 Cyclobenzaprine HCl (Flexeril) 10 mg TID PRN PO MUSCLE SPASMS 05/10/19 11:30 Diphenhydramine HCl (Benadryl) 25 mg Q8H PRN PO RELAXATION 05/10/19 11:30 Doxycycline Hyclate (Vibramycin) 100 mg BID PO 05/10/19 21:00 04/16/20 20:59 05/11/19 09:07 Furosemide (Lasix) 40 mg DAILY PRN PO SWELLING 05/10/19 11:30 Gabapentin (Neurontin) 600 mg QHS PO 05/10/19 21:00 05/10/19 21:54 Home Med (Med Rec Complete!) ASDIRECTED XX 05/09/19 22:45 05/09/19 22:45 DC Magnesium Hydroxide (Milk Of Magnesia) 30 ml DAILYPRN PRN PO CONSTIPATION 05/09/19 21:15 Metformin HCl (Glucophage) 1,000 mg BID PO 05/10/19 21:00 05/11/19 09:07 Miscellaneous (Unresolved Clarification Entry) SEE LABEL COMMENTS UNRESOLVED XX 05/11/19 00:01 05/11/19 00:01 DC Nicotine (Nicoderm Cq 21mg) 1 patch DAILYPRN PRN TD NICOTINE WITHDRAWAL 05/09/19 23:30 Trazodone HCl (Desyrel) 50 mg QHSP PRN PO INSOMNIA 05/09/19 21:15 05/10/19 14:11 DC Allergies Coded Allergies: Tetanus Vaccines and Toxoid (Verified Allergy, Unknown, 01/04/19) metoprolol (Verified Adverse Reaction, Unknown, SECOND DEGREE HEART BLOCK, 4/25/19) ANNE ANTONIO DO May 11, 2019 9:41 am
[2019-05-11] MEDS: ACETAMINOPHEN TAB 650MG DOSE (2X325MG) PO PRN (12:57)
[2019-05-11] MEDS: CYCLOBENZAPRINE 10 MG TAB PO PRN (16:53)
[2019-05-11] MEDS ORDERED: diazePAM 5 MG TAB PO ONE (17:30)
[2019-05-11 17:47] VITALS: BP 146/72
--- NOTE | 2019-05-11 19:13 | ECHO ---
DATE OF PROCEDURE: 05/11/2019 REFERRING PROVIDER: Dr. Jeter REASON FOR TESTING: Chest pain. PATIENT LOCATION: Room 2107 2D MEASUREMENT: IVS 1.5 cm LV 3.8 cm LVPW 1.5 cm LA 3.0 cm Aorta 2.9 cm IVC 1.5 cm DOPPLER MEASUREMENT: Peak velocity across the aortic valve 1.3 m/s Peak velocity across the LVOT 1.0 m/s Mitral E 0.72 Mitral A 0.97 with a ratio of 0.7 2D COMMENTS: 1. Normal left ventricular size with probably moderately increased left ventricular wall thickness. Left ventricular systolic function is normal, estimated at 60-65%. 2. Normal left atrium. Normal right atrium and left ventricle. 3. The atrial septum appeared to be normal without evidence of defect or shunt. 4. Normal aortic root. 5. Trace to small pericardial effusion was noted. No evidence of cardiac tamponade. 6. Mildly calcified aortic valve with normal leaflet excursion. Mildly calcified mitral annulus with normal appearing mitral valve leaflet motion. Normal tricuspid valve and pulmonic valve. The proximal pulmonary artery braches were not well visualized. 7. The inferior vena cava was mildly enlarged. Central venous pressure is most likely normal. DOPPLER: No significant valvular abnormality is detected. Abnormal relaxation pattern was noted across the mitral valve leaflets as well as the mitral valve annulus consistent with features of grade 1 left ventricular diastolic dysfunction. IMPRESSION: 1. Normal global left ventricular systolic function with probably moderate concentric and ventricular hypertrophy. There are some features of left ventricular diastolic dysfunction manifested by abnormal relaxation. 2. Aortic valve sclerosis without stenosis or aortic regurgitation. 3. Elevated mitral annulus calcification. 4. Trace to small pericardial effusion noted, no evidence of cardial tamponade.
[2019-05-11] MEDS: GABAPENTIN 300 MG CAP PO SCH (21:46)
[2019-05-11] MEDS: diphenhydrAMINE 25 MG CAP PO PRN (21:46)
[2019-05-11] MEDS: AMITRIPTYLINE 50 MG TAB PO SCH (21:46)
[2019-05-12] MEDS: ACETAMINOPHEN TAB 650MG DOSE (2X325MG) PO PRN ×2 (06:51→13:15)
[2019-05-12 07:16] VITALS: BP 124/80
[2019-05-12] MEDS: CLOPIDOGREL 75 MG TAB PO SCH (08:42)
[2019-05-12] MEDS: metFORMIN (GLUCOPHAGE) 1000 MG TABLET PO SCH ×2 (08:42→21:15)
[2019-05-12] MEDS: DOXYCYCLINE HYCLATE 100 MG TAB PO SCH ×2 (08:42→21:18)
[2019-05-12] MEDS: diazePAM 5 MG TAB PO SCH ×2 (08:42→21:15)
[2019-05-12] MEDS: amLODIPine 10 MG TAB PO SCH (08:43)
--- NOTE | 2019-05-12 08:53 | MHIPNPDOC ---
[facility] [place] Progress Note Progress Note DATE OF SERVICE: 05/12/19 HISTORY: Per ED Patient is a 59 -year-old , female, who presents to the ER claiming "it would be better if I just fell asleep and didn't wake up." Pt has had multiple admissions in the past due to depression as well as pain from Trigeminal Neuralgia. Pt complains she has been severely depressed recently due to the pain. She mostly sleeps all day and lacks any energy to get up. Patient denies any SI or plan, however she does claim she attempted 4 years ago by cutting her wrists. Patient had been taking Trazodone, Diazepam, Diphe nhydramine, Tizanidine, Cyclobenzaprine, and Gabapentin. Her mother called the ED and explained she's worried because her daughter has just been sleeping all day recently and doesn't get out of bed. Pt is visibly depressed and states "I really ill". She refused to leave her bed during encounter .with medical student but did come in the office to see me when asked to. Told medical student "I can't even walk." Pt proceeds to describe the pain from her Trigeminal Neuralgia in detail. She explains "I wouldn't be so depressed if I didn't have this pain." She is anhedonic "I've given up on everything," hyper-somatic, and lacks appetite. She believes her moods are "up and down" explaining she has sudden energy surges from the pain. Pt denies any Suicidal Ideations or a plan however explains she would rather fall asleep and not wake up. She has a history 4 years ago of cutting her wrists. She also claims to have anxiety stemming from all of her pain. She has panic attacks "where I can't even control my breathing." Patient is currently taking Diazepam which she states she's been taking tid as prescribed, Diphenhydramine, Tizanidine, Cyclobenzaprine, and Gabapentin. However she doesn't feel like any of the medications are working and would rather stop them. She also claims to currently being treated for Tardive Dyskinesia but does appear to have any of the movement symptoms associated with TD. Patient denies any AVH, or SI/HI. She feels safe here. Our interview ended with the patient bursting into tears, lying back down on her bed and not speaking. Spoke to pt about starting her on amitriptyline for trigeminal nerve pain as it is more specific to treat the pain and will start titrating her off her valium as that most likely why she can't get up and have energy during the day due to the amount she's been taking. Stated ok. VITAL SIGNS: See below. NEW TEST RESULTS: See below XR Chest, 2 Views EXAM DATE/TIME: 05/10/2019 10:20 PM CLINICAL HISTORY: 59 years old, female; Shortness of breath; Additional info: Copd, stat read COMPARISON: CR Chest, 2 view PA, Lat 03/30/2016 1:33 PM FINDINGS: Lungs: Mild hyperinflation of the lungs. No focal consolidation. Linear atelectasis or scarring in the left lung base, stable. Pleural space: Unremarkable. No pleural effusion. No pneumothorax. Heart/Mediastinum: Unremarkable. No cardiomegaly. Bones/joints: Anterior cervical fusion. IMPRESSION: Mild hyperinflation of the lungs. No focal consolidation. Linear atelectasis or scarring in the left lung base, stable. CURRENT MEDICATIONS: See below. MENTAL STATUS EXAMINATION: General Appearance: unkempt, disheveled, appears stated age, hospital scrubs/clothing Build: overweight Demeanor: withdrawn, cooperative Eye Contact: fair Activity: slowed Behavior: cooperative, resistant, loss of interests ("I've given up on everything), anhedonia, withdrawn Speech: slow, reg/rate,rhythm,volume Mood: depressed, less anxious Mood "better" Affect: constricted, flat, less anxious Thought Process: logical/linear, depressed, slow Thought Content (Delusions): none reported, denies SI, HI, AVH Thought Content (Other): preoccupied (with her pain), obsessional (patient is hyper-focused on her pain (somatizing it)) Thought Content (Aggressive): none reported Perception (Hallucinations): none reported Perception (Other): none reported Cognition (Impairment of): none reported Cognition(Intelligence Est.): average Oriented: Oriented times three Insight: fair Judgment: Fair Psychosis: Denies DIAGNOSES: 1. bipolar II disorder 2. 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 dependent personality disorder 4. r/o malingering d/o ASSESSMENT:Pt seen and states she is feeling "better" as her trigeminal nerve pain is continuing to improve with start of amitriptyline that she's tolerating well. Complaint of insomnia last night and requesting trazodone at night to help her sleep which I will do. She is tolerating decrease in valium dosing and will continue to titrate off thru treatment. Day time fatigue and low energy appears in proved with taking valium less often. Denies chest pain today and no episodes last night. Encouraged to attend groups as part of treatment plan. She still appears considerably depressed with psycho retardation and flat affect. Denies SI/HI, hallucinations, delusions. Feels safe here. MANAGEMENT PLAN: titrate of valium Medications: valium 5mg to bid amitriptyline for trigeminal nerve pain trazodone 50mg qhs prn insomnia TIME SPENT: 30 minutes. Vital Signs Vital Signs Date Time Temp Pulse Resp B/P (MAP) Pulse Ox O2 Delivery O2 Flow Rate FiO2 05/12/19 08:43 100 140/88 05/12/19 07:16 98.9 14 05/10/19 08:20 Room Air 05/09/19 23:24 94 Current Medications Current Medications Medications (Trade) Dose Ordered Sig/Rao Route PRN Reason Start Time Stop Time Status Last Admin Dose Admin Acetaminophen (Tylenol Tab) 650 mg Q6HP PRN PO HEADACHE or DISCOMFORT 05/09/19 21:15 05/12/19 06:51 Al Hydrox/Mg Hydrox/Simethicone (Mylanta) 30 ml Q4HP PRN PO HEARTBURN/INDIGESTION 05/09/19 21:15 Albuterol/ Ipratropium (Duoneb (Ipr 0.5mg/Alb 2.5mg)) 3 ml Q4HP PRN NEB DYSPNEA 05/10/19 21:15 Amitriptyline HCl (Elavil) 50 mg QHS PO 05/10/19 21:00 05/11/19 21:46 Amlodipine Besylate (Norvasc) 10 mg DAILY PO 05/10/19 09:00 05/12/19 08:43 Clopidogrel Bisulfate (PLAVix) 75 mg DAILY PO 05/11/19 09:00 05/12/19 08:42 Cyclobenzaprine HCl (Flexeril) 10 mg TID PRN PO MUSCLE SPASMS 05/10/19 11:30 05/11/19 16:53 Diazepam (Valium) 5 mg BID PO 05/12/19 09:00 05/12/19 08:42 Diphenhydramine HCl (Benadryl) 25 mg Q8H PRN PO RELAXATION 05/10/19 11:30 05/11/19 21:46 Doxycycline Hyclate (Vibramycin) 100 mg BID PO 05/10/19 21:00 04/16/20 20:59 05/12/19 08:42 Furosemide (Lasix) 40 mg DAILY PRN PO SWELLING 05/10/19 11:30 Gabapentin (Neurontin) 600 mg QHS PO 05/10/19 21:00 05/11/19 21:46 Home Med (Med Rec Complete!) ASDIRECTED XX 05/09/19 22:45 05/09/19 22:45 DC Magnesium Hydroxide (Milk Of Magnesia) 30 ml DAILYPRN PRN PO CONSTIPATION 05/09/19 21:15 Metformin HCl (Glucophage) 1,000 mg BID PO 05/10/19 21:00 05/12/19 08:42 Miscellaneous (Unresolved Clarification Entry) SEE LABEL COMMENTS UNRESOLVED XX 05/11/19 00:01 05/11/19 00:01 DC Nicotine (Nicoderm Cq 21mg) 1 patch DAILYPRN PRN TD NICOTINE WITHDRAWAL 05/09/19 23:30 Trazodone HCl (Desyrel) 50 mg QHSP PRN PO INSOMNIA 05/09/19 21:15 05/10/19 14:11 DC Allergies Coded Allergies: Tetanus Vaccines and Toxoid (Verified Allergy, Unknown, 01/04/19) metoprolol (Verified Adverse Reaction, Unknown, SECOND DEGREE HEART BLOCK, 01/04/19) ANNE ANTONIO DO May 12, 2019 8:53 am
[2019-05-12] MEDS: CYCLOBENZAPRINE 10 MG TAB PO PRN (16:12)
[2019-05-12 17:54] VITALS: BP 159/83
[2019-05-12] MEDS: AMITRIPTYLINE 50 MG TAB PO SCH (21:15)
[2019-05-12] MEDS: diphenhydrAMINE 25 MG CAP PO PRN (21:15)
[2019-05-12] MEDS: GABAPENTIN 300 MG CAP PO SCH (21:15)
[2019-05-12] MEDS: traZODone 50 MG TAB PO PRN (21:31)
[2019-05-13 06:28] VITALS: BP 147/71
[2019-05-13] MEDS: diazePAM 5 MG TAB PO SCH ×2 (08:34→20:58)
[2019-05-13] MEDS: metFORMIN (GLUCOPHAGE) 1000 MG TABLET PO SCH ×2 (08:34→20:58)
[2019-05-13] MEDS: amLODIPine 10 MG TAB PO SCH (08:34)
[2019-05-13] MEDS: CLOPIDOGREL 75 MG TAB PO SCH (08:34)
[2019-05-13] MEDS: DOXYCYCLINE HYCLATE 100 MG TAB PO SCH ×2 (08:34→20:58)
[2019-05-13] MEDS: ACETAMINOPHEN TAB 650MG DOSE (2X325MG) PO PRN ×2 (08:36→17:40)
[2019-05-13] MEDS: CYCLOBENZAPRINE 10 MG TAB PO PRN ×2 (12:07→17:41)
[2019-05-13 17:41] VITALS: BP 128/65
[2019-05-13] MEDS: AMITRIPTYLINE 50 MG TAB PO SCH (20:58)
[2019-05-13] MEDS: GABAPENTIN 300 MG CAP PO SCH (20:59)
[2019-05-13] MEDS: traZODone 50 MG TAB PO PRN (20:59)
[2019-05-14 06:40] VITALS: BP 136/87
[2019-05-14] MEDS: DOXYCYCLINE HYCLATE 100 MG TAB PO SCH ×2 (08:09→21:33)
[2019-05-14] MEDS: diazePAM 5 MG TAB PO SCH ×2 (08:09→21:33)
[2019-05-14] MEDS: metFORMIN (GLUCOPHAGE) 1000 MG TABLET PO SCH ×2 (08:09→21:33)
[2019-05-14] MEDS: CLOPIDOGREL 75 MG TAB PO SCH (08:09)
[2019-05-14] MEDS: amLODIPine 10 MG TAB PO SCH (08:09)
[2019-05-14] MEDS: NICOTINE 21MG/24HR 1 EA TRANSDERMAL TD PRN (08:11)
[2019-05-14] MEDS: ACETAMINOPHEN TAB 650MG DOSE (2X325MG) PO PRN ×2 (11:05→21:38)
[2019-05-14] MEDS: CYCLOBENZAPRINE 10 MG TAB PO PRN (15:18)
[2019-05-14] MEDS: hydroCHLOROthiazide 25 MG TAB PO SCH (16:15)
[2019-05-14] MEDS: LISINOPRIL 20 MG TAB PO SCH (16:16)
[2019-05-14 16:56] VITALS: BP 142/86
[2019-05-14] MEDS: GABAPENTIN 300 MG CAP PO SCH (21:32)
[2019-05-14] MEDS: BENZTROPINE 1 MG TAB PO SCH (21:33)
[2019-05-14] MEDS: AMITRIPTYLINE 50 MG TAB PO SCH (21:33)
[2019-05-14] MEDS: traZODone 50 MG TAB PO PRN (21:34)
[2019-05-15 06:48] VITALS: BP 152/58
[2019-05-15] MEDS: PILL CUTTER 1 EACH XX PRN ×3 (08:14→21:06)
[2019-05-15] MEDS: BENZTROPINE 1 MG TAB PO SCH ×2 (08:15→20:18)
[2019-05-15] MEDS: hydroCHLOROthiazide 25 MG TAB PO SCH (08:15)
[2019-05-15] MEDS: metFORMIN (GLUCOPHAGE) 1000 MG TABLET PO SCH ×2 (08:16→20:17)
[2019-05-15] MEDS: diazePAM 5 MG TAB PO SCH ×2 (08:16→20:19)
[2019-05-15] MEDS: CLOPIDOGREL 75 MG TAB PO SCH (08:16)
[2019-05-15] MEDS: LISINOPRIL 20 MG TAB PO SCH (08:16)
[2019-05-15] MEDS: amLODIPine 10 MG TAB PO SCH (08:16)
[2019-05-15] MEDS: DOXYCYCLINE HYCLATE 100 MG TAB PO SCH ×2 (08:16→20:18)
[2019-05-15] MEDS: ACETAMINOPHEN TAB 650MG DOSE (2X325MG) PO PRN (09:59)
--- NOTE | 2019-05-15 10:52 | MHIPNPDOC ---
[facility] Progress Note Progress Note DATE OF SERVICE: 05/15/19 HISTORY:Per ED Patient is a 59 -year-old , female, who presents to the ER claiming "it would be better if I just fell asleep and didn't wake up." Pt h as had multiple admissions in the past due to depression as well as pain from Trigeminal Neuralgia. Pt complains she has been severely depressed recently due to the pain. She mostly sleeps all day and lacks any energy to get up. Patient denies any SI or plan, however she does claim she attempted 4 years ago by cutting her wrists. Patient had been taking Trazodone, Diazepam, Diphenh ydramine, Tizanidine, Cyclobenzaprine, and Gabapentin. Her mother called the ED and explained she's worried because her daughter has just been sleeping all day recently and doesn't get out of bed. Pt is visibly depressed and states "I really ill". She refused to leave her bed during encounter .with medical student but did come in the office to see me when asked to. Told medical student "I can't even walk." Pt proceeds to describe the pain from her Trigeminal Neuralgia in detail. She explains "I wouldn't be so depressed if I didn't have this pain." She is anhedonic "I've given up on everything," hyper-somatic, and lacks appetite. She believes her moods are "up and down" explaining she has sudden energy surges from the pain. Pt denies any Suicidal Ideations or a plan however explains she would rather fall asleep and not wake up. She has a history 4 years ago of cutting her wrists. She also claims to have anxiety stemming from all of her pain. She has panic attacks "where I can't even control my breathing." Patient is currently taking Diazepam which she states she's been taking tid as prescribed, Diphenhydramine, Tizanidine, Cyclobenzaprine, and Gabapentin. However she doesn't feel like any of the medications are working and would rather stop them. She also claims to currently being treated for Tardive Dyskinesia but does appear to have any of the movement symptoms associated with TD. Patient denies any AVH, or SI/HI. She feels safe here. Our interview ended with the patient bursting into tears, lying back down on her bed and not speaking. Spoke to pt about starting her on amitriptyline for trigeminal nerve pain as it is more specific to treat the pain and will start titrating her off her valium as that most likely why she can't get up and have energy during the day due to the amount she's been taking. Stated ok. VITAL SIGNS: See below. NEW TEST RESULTS: See below XR Chest, 2 Views EXAM DATE/TIME: 05/10/2019 10:20 PM CLINICAL HISTORY: 59 years old, female; Shortness of breath; Additional info: Copd, stat read COMPARISON: CR Chest, 2 view PA, Lat 03/30/2016 1:33 PM FINDINGS: Lungs: Mild hyperinflation of the lungs. No focal consolidation. Linear atelectasis or scarring in the left lung base, stable. Pleural space: Unremarkable. No pleural effusion. No pneumothorax. Heart/Mediastinum: Unremarkable. No cardiomegaly. Bones/joints: Anterior cervical fusion. IMPRESSION: Mild hyperinflation of the lungs. No focal consolidation. Linear atelectasis or scarring in the left lung base, stable. CURRENT MEDICATIONS: See below. MENTAL STATUS EXAMINATION: General Appearance: clean, appears stated age, own clothing Build: overweight Demeanor: cooperative Eye Contact: fair Activity: slowed Behavior: cooperative Speech: slow, reg/rate,rhythm,volume Mood: less depressed, more full Mood "much better" Affect: less constricted Thought Process: logical/linear, less depressed, less slow Thought Content (Delusions): none reported, denies SI, HI, AVH Thought Content (Other): preoccupied (with her pain), obsessional (patient is hyper-focused on her pain (somatizing it)) Thought Content (Aggressive): none reported Perception (Hallucinations): none reported Perception (Other): none reported Cognition (Impairment of): none reported Cognition(Intelligence Est.): average Oriented: Oriented times three Insight: fair Judgment: Fair Psychosis: Denies DIAGNOSES: 1. bipolar II disorder 2. 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 dependent personality disorder 4. r/o malingering d/o ASSESSMENT:Pt seen and states she is feeling "much better" as her trigeminal nerve pain is continuing to improve with start of amitriptyline that she's tolerating well. States she slept well last night with taking trazodone. States that she has spoken to her mother about going to a hospital in [place], [place] regarding her trigeminal nerve pain as to see a doctor that specializes in the disorder. States she's greatly looking forward to going in the future. She is tolerating decrease in valium dosing and will continue to titrate off thru treatment. Day time fatigue and low energy appears in proved with taking valium less often. Denies chest pain today and no episodes last night. Is attending groups and present in the milieu which she's finding beneficial. States she's tolerating her medications and finding them beneficial. She still appears less depressed with less psycho retardation and more full affect. Denies SI/HI, hallucinations, delusions. Feels safe here. MANAGEMENT PLAN: titrate off valium Medications: valium 2.5mg to bid amitriptyline for trigeminal nerve pain trazodone 50mg qhs prn insomnia TIME SPENT: 30 minutes. Vital Signs Vital Signs Date Time Temp Pulse Resp B/P (MAP) Pulse Ox O2 Delivery O2 Flow Rate FiO2 05/15/19 08:16 105 136/77 05/15/19 06:48 98.1 14 05/10/19 08:20 Room Air 05/09/19 23:24 94 Current Medications Current Medications Medications (Trade) Dose Ordered Sig/Rao Route PRN Reason Start Time Stop Time Status Last Admin Dose Admin Acetaminophen (Tylenol Tab) 650 mg Q6HP PRN PO HEADACHE or DISCOMFORT 05/09/19 21:15 05/15/19 09:59 Al Hydrox/Mg Hydrox/Simethicone (Mylanta) 30 ml Q4HP PRN PO HEARTBURN/INDIGESTION 05/09/19 21:15 Albuterol/ Ipratropium (Duoneb (Ipr 0.5mg/Alb 2.5mg)) 3 ml Q4HP PRN NEB DYSPNEA 05/10/19 21:15 Amitriptyline HCl (Elavil) 50 mg QHS PO 05/10/19 21:00 05/14/19 21:33 Amlodipine Besylate (Norvasc) 10 mg DAILY PO 05/10/19 09:00 05/15/19 08:16 Benztropine Mesylate (Cogentin) 1 mg BID PO 05/14/19 21:00 05/15/19 08:15 Clopidogrel Bisulfate (PLAVix) 75 mg DAILY PO 05/11/19 09:00 05/15/19 08:16 Cyclobenzaprine HCl (Flexeril) 10 mg TID PRN PO MUSCLE SPASMS 05/10/19 11:30 05/14/19 15:18 Diazepam (Valium) 5 mg BID PO 05/12/19 09:00 05/15/19 08:16 Diphenhydramine HCl (Benadryl) 25 mg Q8H PRN PO RELAXATION 05/10/19 11:30 05/12/19 21:15 Doxycycline Hyclate (Vibramycin) 100 mg BID PO 05/10/19 21:00 04/16/20 20:59 05/15/19 08:16 Fluphenazine HCl (Prolixin) 2.5 mg TID PO 05/14/19 16:00 05/15/19 08:15 Furosemide (Lasix) 40 mg DAILY PRN PO SWELLING 05/10/19 11:30 Gabapentin (Neurontin) 600 mg QHS PO 05/10/19 21:00 05/14/19 21:32 Home Med (Med Rec Complete!) ASDIRECTED XX 05/09/19 22:45 05/09/19 22:45 DC Hydrochlorothiazide (Hydrodiuril) 25 mg DAILY PO 05/14/19 09:00 05/15/19 08:15 Lisinopril (Prinivil) 20 mg QAM PO 05/14/19 09:00 05/15/19 08:16 Magnesium Hydroxide (Milk Of Magnesia) 30 ml DAILYPRN PRN PO CONSTIPATION 05/09/19 21:15 Metformin HCl (Glucophage) 1,000 mg BID PO 05/10/19 21:00 05/15/19 08:16 Miscellaneous (Unresolved Clarification Entry) SEE LABEL COMMENTS UNRESOLVED XX 05/11/19 00:01 05/11/19 00:01 DC Nicotine (Nicoderm Cq 21mg) 1 patch DAILYPRN PRN TD NICOTINE WITHDRAWAL 05/09/19 23:30 05/14/19 08:11 Trazodone HCl (Desyrel) 50 mg QHSP PRN PO INSOMNIA 05/09/19 21:15 05/10/19 14:11 DC Trazodone HCl (Desyrel) 50 mg QHSP PRN PO INSOMNIA 05/12/19 21:30 05/14/19 21:34 Allergies Coded Allergies: Tetanus Vaccines and Toxoid (Verified Allergy, Unknown, 01/04/19) metoprolol (Verified Adverse Reaction, Unknown, SECOND DEGREE HEART BLOCK, 01/04/19) ANNE ANTONIO DO May 15, 2019 10:52 am
[2019-05-15] MEDS: CYCLOBENZAPRINE 10 MG TAB PO PRN (14:06)
[2019-05-15] MEDS: NICOTINE 21MG/24HR 1 EA TRANSDERMAL TD PRN (15:15)
[2019-05-15 16:34] VITALS: BP 128/71
[2019-05-15] MEDS: traZODone 50 MG TAB PO PRN (20:17)
[2019-05-15] MEDS: GABAPENTIN 300 MG CAP PO SCH (20:17)
[2019-05-15] MEDS: AMITRIPTYLINE 50 MG TAB PO SCH (20:18)
[2019-05-16] MEDS: diphenhydrAMINE 25 MG CAP PO PRN (01:07)
[2019-05-16] MEDS: ACETAMINOPHEN TAB 650MG DOSE (2X325MG) PO PRN ×2 (01:07→10:40)
[2019-05-16 06:56] VITALS: BP 125/75
[2019-05-16] MEDS: BENZTROPINE 1 MG TAB PO SCH (08:21)
[2019-05-16] MEDS: CLOPIDOGREL 75 MG TAB PO SCH (08:21)
[2019-05-16] MEDS: hydroCHLOROthiazide 25 MG TAB PO SCH (08:21)
[2019-05-16 08:22] VITALS: BP 140/84
[2019-05-16] MEDS: DOXYCYCLINE HYCLATE 100 MG TAB PO SCH (08:22)
[2019-05-16] MEDS: metFORMIN (GLUCOPHAGE) 1000 MG TABLET PO SCH (08:22)
[2019-05-16] MEDS: LISINOPRIL 20 MG TAB PO SCH (08:22)
[2019-05-16] MEDS: amLODIPine 10 MG TAB PO SCH (08:22)
[2019-05-16] MEDS: PILL CUTTER 1 EACH XX PRN (08:24)
[2019-05-16] MEDS: diazePAM 5 MG TAB PO SCH (08:24)
[2019-05-16] MEDS ORDERED: TRAZ-163 PO (09:06)
[2019-05-16] MEDS ORDERED: FLUP25TA PO (09:06)
[2019-05-16] MEDS ORDERED: AMIT50TA PO (09:06)
[2019-05-16] MEDS ORDERED: BENZ-52 PO (09:06)
--- NOTE | 2019-05-16 09:09 | MHDSPDOC ---
[facility] Discharge Summary Discharge Summary DATE OF ADMISSION: May 09, 2019 at 9:14 pm DATE OF DISCHARGE: May 162018 DISCHARGE DIAGNOSES: 1. bipolar II disorder 2. 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 dependent personality disorder REASON FOR ADMISSION: Per ED Patient is a 59 -year-old , female, who presents to the ER claiming "it would be better if I just fell asleep and didn't wake up." Pt has had multiple admissions in the past due to depression as well as pain from Trigeminal Neuralgia. Pt complains she has been severely depressed recently due to the pain. She mostly sleeps all day and lacks any energy to get up. Patient denies any SI or plan, however she does claim she attempted 4 years ago by cutting her wrists. Patient had been taking Trazodone, Diazepam, Diphenhydramine, Tizanidine, Cyclobenzaprine, and Gabapentin. Her mother called the ED and explained she's worried because her daughter has just been sleeping all day recently and doesn't get out of bed. Pt is visibly depressed and states "I really ill". She refused to leave her bed during encounter .with medical student but did come in the office to see me when asked to. Told medical student "I can't even walk." Pt proceeds to describe the pain from her Trigeminal Neuralgia in detail. She explains "I wouldn't be so depressed if I didn't have this pain." She is anhedonic "I've given up on everything," hyper-somatic, and lacks appetite. She believes her moods are "up and down" explaining she has sudden energy surges from the pain. Pt denies any Suicidal Ideations or a plan however explains she would rather fall asleep and not wake up. She has a history 4 years ago of cutting her wrists. She also claims to have anxiety stemming from all of her pain. She has panic attacks "where I can't even control my breathing." Patient is currently taking Diazepam which she states she's been taking tid as prescribed, Diphenhydramine, Tizanidine, Cyclobenzaprine, and Gabapentin. However she doesn't feel like any of the medications are working and would rather stop them. She also claims to currently being treated for Tardive Dyskinesia but does appear to have any of the movement symptoms associated with TD. Patient denies any AVH, or SI/HI. She feels safe here. Our interview ended with the patient bursting into tears, lying back down on her bed and not speaking. Spoke to pt about starting her on amitriptyline for trigeminal nerve pain as it is more specific to treat the pain and will start titrating her off her valium as that most likely why she can't get up and have energy during the day due to the amount she's been taking. Stated ok. CONSULTANTS INVOLVED:medicine regarding resolved Chest Pain TEST RESULTS: See below XR Chest, 2 Views EXAM DATE/TIME: 05/10/2019 10:20 PM CLINICAL HISTORY: 59 years old, female; Shortness of breath; Additional info: Copd, stat read COMPARISON: CR Chest, 2 view PA, Lat 03/30/2016 1:33 PM FINDINGS: Lungs: Mild hyperinflation of the lungs. No focal consolidation. Linear atelectasis or scarring in the left lung base, stable. Pleural space: Unremarkable. No pleural effusion. No pneumothorax. Heart/Mediastinum: Unremarkable. No cardiomegaly. Bones/joints: Anterior cervical fusion. IMPRESSION: Mild hyperinflation of the lungs. No focal consolidation. Linear atelectasis or scarring in the left lung base, stable. TREATMENT AND PROGRESS ON THE UNIT : Pt was admitted to [facility], seen for psychiatric assessment and restarted on her outpatient medications prolixin 2.5mg tid and cogentin 1mg bid. She was titrated off her outpatient valium due to daytime somnolence while taking it that improved greatly with less use. She was started on amitriptyline 50mg qhs for mood and trigeminal nerve pain that she found very beneficial and tolerated well with improved pain and mood. She was provided trazodone 50mg qhs prn insomnia. She was seen once for complaint of chest pain and cxr done with results above, tropinins taken and wnl, no episodes since but medicine continued to follow pt on unit. Pt found her medications beneficial and tolerated them well. She attended groups daily during her stay. Her symptoms improved with treatment. On day of discharge she denied depression, anxiety, insomnia, SI/HI, hallucinations, delusions. She was discharged home with follow-up at [facility]. She felt safe for discharge. DISCHARGE ASSESSMENT: Pt seen and states she is feeling "good" as her trigeminal nerve pain is continuing to improve with start of amitriptyline that she's tolerating well. States she's looking forward to being discharged home today. States she slept well last night with taking trazodone. States she's looking forward to going with her mother to a hospital in [place], [place] regarding her trigeminal nerve pain as to see a doctor that specializes in the disorder. She is tolerating decrease in valium dosing and will with last dose this morning. Day time fatigue and low energy appears improved with taking valium less often. Denies chest pain today and no episodes last night. Is attending groups and present in the milieu which she's finding beneficial. States she's tolerating her medications and finding them beneficial. She appears more full range and euthymic. Denies depression, anxiety, insomnia, SI/HI, hallucinations, delusions. Feels safe here. MENTAL STATUS EXAMINATION ON DISCHARGE: General Appearance: clean, appears stated age, own clothing Build: overweight Demeanor: cooperative Eye Contact: good Activity: minorly slow Behavior: cooperative Speech: reg/rate,rhythm,volume Mood: euthymic Mood "good" Affect: euthymic, improved range Thought Process: logical/linear, less depressed, less slow Thought Content (Delusions): none reported, denies SI, HI, AVH Thought Content (Other): much less preoccupied with her pain that is improved with treatment Thought Content (Aggressive): none reported Perception (Hallucinations): none reported Perception (Other): none reported Cognition (Impairment of): none reported Cognition(Intelligence Est.): average Oriented: Oriented times three Insight: good Judgment: good Psychosis: Denies MEDICATIONS ON DISCHARGE: amitriptyline 50mg qhs trazodone 50mg qhs prn insomnia prolixin 2.5mg tid congentin 1mg bid PLAN/FOLLOWUP ARRANGEMENTS: D/c home with follow-up at [facility]. The amount of time spent in the coordination of care for this patient was approximately 30 minutes. Vital Signs/I&Os Vital Signs Date Time Temp Pulse Resp B/P (MAP) Pulse Ox O2 Delivery O2 Flow Rate FiO2 05/16/19 08:22 140/84 05/16/19 08:22 107 05/16/19 06:56 96.9 14 05/10/19 08:20 Room Air Medications Scheduled Amlodipine Besylate (Amlodipine Besylate) 10 Mg Tablet, 10 MG PO DAILY, (Reported) Clopidogrel Bisulfate (Plavix) 75 Mg Tab, 75 MG PO DAILY, (Reported) Deutetrabenazine (Austedo) 6 Mg Tablet, 6 MG PO BID, (Reported) TAKES WITH 9MG FOR 15MG TOTAL PER DOSE Deutetrabenazine (Austedo) 9 Mg Tablet, 9 MG PO BID, (Reported) TAKES WITH 6MG FOR 15MG PER DOSE Fluphenazine HCl (Fluphenazine HCl) 2.5 Mg Tablet, 2.5 MG PO TID, (Reported) TAKES WITH 5MG FOR 7.5MG PER DOSE Fluphenazine HCl (Fluphenazine HCl) 5 Mg Tablet, 5 MG PO TID, (Reported) TAKES WITH 2.5MG FOR 7.5MG PER DOSE Gabapentin (Gabapentin) 600 Mg Tablet, 600 MG PO QHS, (Reported) Lisinopril/Hydrochlorothiazide (Lisinopril-Hctz 20-25 mg Tab) 1 Each Tablet, 1 TAB PO DAILY, (Reported) Metformin HCl (Metformin HCl) 1,000 Mg Tab, 1,000 MG PO BID, (Reported) Scheduled PRN Butorphanol Tartrate (Butorphanol Tartrate) 10 Mg/1 Ml [place], 1 SPRAY NA Q6H PRN for HEADACHE, (Reported) IN ONE NOSTRIL, ALTERNATING PER DOSE Cyclobenzaprine HCl (Cyclobenzaprine HCl) 10 Mg Tablet, 10 MG PO TID PRN for MUSCLE SPASMS, (Reported) Diazepam (Diazepam) 5 Mg Tablet, 5 MG PO TID PRN for ANXIETY, (Reported) Diphenhydramine HCl (Diphenhydramine HCl) 25 Mg Capsule, 25 MG PO Q8H PRN for RELAXATION, (Reported) Furosemide (Lasix) 40 Mg Tab, 40 MG PO DAILY PRN for SWELLING, (Reported) Trazodone HCl (Trazodone HCl) 100 Mg Tab, 100 MG PO QHS PRN for SLEEP, (Reported) Allergies Coded Allergies: Tetanus Vaccines and Toxoid (Verified Allergy, Unknown, 01/04/19) metoprolol (Verified Adverse Reaction, Unknown, SECOND DEGREE HEART BLOCK, 01/04/19) ANNE ANTONIO DO May 16, 2019 9:09 am
[2019-05-16] MEDS: CYCLOBENZAPRINE 10 MG TAB PO PRN (10:40)
== END 2019-05-16 12:15 | disposition home or self-care (01) | DRG 885 ==
LOC: M ED 16:52 → M ED INP 21:14 → M ED 22:34 → M PSY 22:37
PROVIDERS: ADMIT Psychiatry & Neurology Addiction Medicine; ATTEND Psychiatry & Neurology Psychiatry
DX: F31.81 Bipolar II disorder (principal); F45.1 Undifferentiated somatoform disorder; G50.0 Trigeminal neuralgia; F60.7 Dependent personality disorder; Z79.899 Other long term (current) drug therapy; Z88.8 Allergy status to other drugs, medicaments and biological substances; Z88.7 Allergy status to serum and vaccine; M54.5 Low back pain; I10 Essential (primary) hypertension; Z95.2 Presence of prosthetic heart valve; M54.81 Occipital neuralgia; I25.10 Atherosclerotic heart disease of native coronary artery without angina pectoris; E11.9 Type 2 diabetes mellitus without complications

== ENCOUNTER → 2019-07-26 | Outpatient (REF) | payer MEDICARE, MEDICAID ==
[~2019-07-26] MED LIST changes: +AMIT50TA PO; +AUST6TAB PO; +AUST9TAB PO; +BANO25TA; +BUTO10SO; +CYCL10TA; +DIPH25CA32 PO; +FLUP25TA PO; +GABA600T4; +NICO2GUM52 PO; -NICO2GUM62 PO; +TIZA2CAP
== END ==
LOC: M LAB REF 12:25
PROVIDERS: ATTEND Nurse Practitioner Family
DX: R30.0 Dysuria (principal)

== ENCOUNTER → 2019-08-06 | Outpatient (REF) | payer MEDICARE, MEDICAID ==
[~2019-08-06] MED LIST changes: +CLON0.5T2 PO; -CLON0.5T8 PO; -SIMV20TA2 PO; +SIMV20TA22 PO
== END ==
LOC: M LAB REF 16:29
PROVIDERS: ATTEND Nurse Practitioner Family
DX: R30.0 Dysuria (principal)

== ENCOUNTER → 2019-10-12 | Outpatient (CLI) | payer MEDICARE, MEDICAID ==
[~2019-10-12] MED LIST changes: -TRAZ-163 PO; +TRAZ-257 PO; -TRAZ10TA PO; +TRAZ1TAB12 PO
[2019-10-12 10:37] LABS: ALT/SGPT 18 U/L (12-78); BILIRUBIN,DIRECT < 0.1 MG/DL (0.0-0.2); BILIRUBIN,TOTAL 0.2 MG/DL (0.2-1.0); TOTAL PROTEIN 7.3 GM/DL (6.4-8.2); VALPROIC ACID (DEPAKOTE) 50.1 UG/ML (50.0-100.0)
== END ==
LOC: M PLALAB 08:12
PROVIDERS: ATTEND Psychiatry & Neurology Psychiatry
DX: F31.9 Bipolar disorder, unspecified (principal); Z65.8 Other specified problems related to psychosocial circumstances

== ENCOUNTER → 2019-11-14 | Outpatient (CLI) | payer MEDICARE, MEDICAID ==
[~2019-11-14] MED LIST changes: -NICO2GUM52 PO; +NICO2GUM54 PO
[2019-11-14 12:33] LABS: ALBUMIN 3.8 GM/DL (3.2-5.2); ALT/SGPT 27 U/L (12-78); BILIRUBIN,TOTAL 0.1 MG/DL (0.2-1.0); BLOOD UREA NITROGEN 17 MG/DL (7-18); CALCIUM LEVEL 9.7 MG/DL (8.5-10.1); CARBON DIOXIDE LEVEL 27 MEQ/L (21-32); CHLORIDE LEVEL 102 MEQ/L (98-107); CHOLESTEROL LEVEL 239 MG/DL (<200); CREATININE FOR GFR 1.11 MG/DL (0.55-1.30); GLOMERULAR FILTRATION RATE 53.7 (>51); GLUCOSE, FASTING 122 MG/DL (70-100); HDL CHOLESTEROL 25 MG/DL (>40); NON-HDL-C 214 MG/DL; POTASSIUM SERUM 3.5 MEQ/L (3.5-5.1); SODIUM LEVEL 138 MEQ/L (136-145); TOTAL PROTEIN 7.2 GM/DL (6.4-8.2); TRIGLYCERIDES LEVEL 484 MG/DL (<150)
[2019-11-14 13:16] LABS: HEMOGLOBIN A1c 6.4 %
== END ==
LOC: M PLALAB 10:36
PROVIDERS: ATTEND Internal Medicine
DX: E78.5 Hyperlipidemia, unspecified (principal); E11.9 Type 2 diabetes mellitus without complications
CPT/HCPCS: 36415; 80053; 80061; 83036; G0463

== ENCOUNTER 2020-05-10 15:11 | Inpatient (IN) | payer MEDICARE, MEDICAID ==
[~2020-05-10] VITALS: Ht 165.1 cm; Wt 91.0 kg
[~2020-05-10 15:11] MED LIST changes: -AMLO10TA5 PO; +AMLO1TAB25 PO; +CYCL-707; +CYCL-707 PO; -CYCL10TA; -CYCL10TA PO; +FLUP2.5T12 PO; -FLUP25TA PO; +NICO-13 PO; -NICO2GUM54 PO
[2020-05-10] MEDS ORDERED: NS 1,000 ML IV ONE (15:45)
[2020-05-10] MEDS ORDERED: diphenhydrAMINE 50MG/ML VIAL (J1200) IV ONE (15:45)
[2020-05-10] MEDS ORDERED: PROCHLORPERAZINE 10MG/2ML VIAL (J0780 PER 1) IV PRN (15:45)
[2020-05-10] MEDS ORDERED: NS 1,000 ML IV SCH (17:51)
--- NOTE | 2020-05-10 18:17 | REPVR ---
PROCEDURE INFORMATION: Exam: CT Head Without Contrast Exam date and time: 05/10/2020 5:56 PM Age: 60 years old Clinical indication: Altered mental status/memory loss; Confusion or disorientation TECHNIQUE: Imaging protocol: Computed tomography of the head without contrast. Radiation optimization: All CT scans at this facility use at least one of these dose optimization techniques: automated exposure control; mA and/or kV adjustment per patient size (includes targeted exams where dose is matched to clinical indication); or iterative reconstruction. COMPARISON: CT Head without contrast 09/28/2017 2:09 PM FINDINGS: Brain: Normal. No hemorrhage. Unremarkable white matter. No mass effect. Ventricles: Normal. No ventriculomegaly. Bones/joints: Unremarkable. No acute fracture. Sinuses: Visualized sinuses are unremarkable. No fluid levels. Mastoid air cells: Visualized mastoid air cells are well aerated. Soft tissues: Unremarkable. IMPRESSION: No acute intracranial abnormality. Electronically signed by: Tristin Franklin On 05/10/2020 18:17:23 PM
[2020-05-10 18:53] LABS: VENOUS BASE EXCESS -4.3 (-2.0-2.0); VENOUS HCO3 22.6 MEQ/L (23.0-27.0); VENOUS PARTIAL PRESSURE CO2 48.8 mmHg (38.0-50.0); VENOUS PARTIAL PRESSURE O2 76.4 mmHg (30.0-50.0); VENOUS PH 7.284 UNITS (7.330-7.430); VENOUS STANDARD HCO3 20.8 MEQ/L; VENOUS TOTAL CO2 24.1 MEQ/L (24.0-28.0)
[2020-05-10] MEDS ORDERED: FLUP5TA PO (18:59)
[2020-05-10] MEDS ORDERED: GABA-843 PO (18:59)
[2020-05-10] MEDS ORDERED: CLON0.5T2 PO (18:59)
[2020-05-10] MEDS ORDERED: BISO5TAB14 PO (18:59)
[2020-05-10] MEDS ORDERED: ENAL1TAB46 PO (18:59)
[2020-05-10] MEDS ORDERED: DIVA500T9 PO ×2 (18:59)
[2020-05-10] MEDS ORDERED: LISI40TA PO (18:59)
[2020-05-10] MEDS ORDERED: TOPI25TA10 PO (18:59)
[2020-05-10 19:00] LABS: BASO % 0.5 % (0.0-1.0); EOS # 0.2 10^3/uL (0.0-0.5); EOS % 2.3 % (0.0-3.0); LYMPH # 3.3 10^3/uL (1.5-5.0); LYMPH % 43.7 % (24.0-44.0); MEAN CORPUSCULAR HGB CONC 31.7 g/dl (32.0-36.5); MEAN CORPUSCULAR VOLUME 91.3 fl (80.0-96.0); MONO # 0.5 10^3/uL (0.0-0.8); MONO % 6.4 % (0.0-5.0); NEUTROPHILS # 3.5 10^3/uL (1.5-8.5); PLATELET COUNT, AUTOMATED 200 10^3/uL (150-450); RED BLOOD COUNT 4.49 10^6/uL (4.00-5.40); WHITE BLOOD COUNT 7.5 10^3/uL (4.0-10.0)
[2020-05-10 19:22] LABS: OSMOLALITY SERUM 303 MOSM/KG (275-295)
[2020-05-10 19:34] LABS: ACETAMINOPHEN LEVEL < 2.0 UG/ML (10.0-30.0); ALBUMIN 3.3 GM/DL (3.2-5.2); ALT/SGPT 22 U/L (12-78); BILIRUBIN,DIRECT < 0.1 MG/DL (0.0-0.2); BILIRUBIN,TOTAL 0.2 MG/DL (0.2-1.0); BLOOD UREA NITROGEN 27 MG/DL (7-18); CALCIUM LEVEL 8.9 MG/DL (8.5-10.1); CARBON DIOXIDE LEVEL 26 MEQ/L (21-32); CHLORIDE LEVEL 113 MEQ/L (98-107); CK-MB VALUE MASS < 1.0 NG/ML (<3.6); CPK CREATINE PHOSPHOKINASE 75 U/L (26-192); CREATININE FOR GFR 1.23 MG/DL (0.55-1.30); ETHYL ALCOHOL (ETHANOL) < 0.003 % (0.000-0.010); GLOMERULAR FILTRATION RATE 47.6 (>51); GLUCOSE, FASTING 87 MG/DL (70-100); MB/CK RELATIVE INDEX 1.33 (< OR =4); POTASSIUM SERUM 4.1 MEQ/L (3.5-5.1); SALICYLATE LEVEL 1.8 MG/DL (5.0-30.0); SODIUM LEVEL 145 MEQ/L (136-145); TOTAL PROTEIN 6.6 GM/DL (6.4-8.2); TROPONIN I < 0.02 NG/ML (< 0.10)
[2020-05-10 20:53] LABS: AMPHETAMINES LEVEL URINE NEGATIVE (NEGATIVE); BARBITURATES URINE NEGATIVE (NEGATIVE); BENZODIAZEPINES URINE NEGATIVE (NEGATIVE); CANNABINOIDS URINE NEGATIVE (NEGATIVE); COCAINE METABOLITE URINE NEGATIVE (NEGATIVE); METHADONE URINE NEGATIVE (NEGATIVE); OPIATES URINE NEGATIVE (NEGATIVE); PHENCYCLIDINE URINE NEGATIVE (NEGATIVE)
[2020-05-10] MEDS ORDERED: DEXTROSE 50% 50 ML SYRINGE IV PRN (22:45)
[2020-05-10] MEDS ORDERED: GLUCAGON INJ 1MG VIAL SC PRN (22:45)
[2020-05-10] MEDS ORDERED: GLUCOSE 4GM CHEW TABLET PO PRN (22:45)
[2020-05-10] MEDS ORDERED: clonazePAM 0.5 MG TAB PO PRN (22:45)
--- NOTE | 2020-05-10 22:48 | HPEPDOC ---
[facility] Medical History & Physical Date of Admission May 10, 2020 Date of Service: May 10, 2020 Other Provider Zaheer Guillen MD Attending Physician: ANNALISA COX MD History and Physical TIME OF SERVICE: 1010PM CHIEF COMPLAINT: headache HISTORY OF PRESENT ILLNESS: This 60 yr old F presented w c/o 8 to 10/10 in severity frontal headache for 5 years. The RIBEIRO radiates to the back of her head, is sharp, better with heat, worse with noise and associated with blurry vision. She denies having f/c/n/v. She also has chronic back pain that has been worse than usual over the last few weeks and difficulties walking. She uses a rolling walker and was last able to ambulate earlier on in the day. She lives with her 89 yr old mother who can no longer care for her. REVIEW OF SYSTEMS: 12 point review of systems negative except as listed in HPI PAST MEDICAL/ SURGICAL HISTORY: Migraines Chronic neck and back pain / C5-7 fusion Chronic HTN NIDM2 CAD w placement of 2 stents Bipolar II Disorder MDD SOCIAL HISTORY: -Tobacco /- Alcohol / - Drugs / doesnt have children FAMILY HISTORY: ALLERGIES: Please see below. HOME MEDICATIONS: Please see below. PHYSICAL EXAMINATION: Vital Signs Date Time Temp Pulse Resp B/P (MAP) Pulse Ox O2 Delivery O2 Flow Rate FiO2 05/10/20 15:19 97.9 71 18 168/81 (110) 93 Room Air GENERAL APPEARANCE: flat affect /NAD HEENT: no conjunctival injection / MM pink and dry CARDIOVASCULAR: RRR/NMRG / no BLE edema LUNGS: CTAB on RA MUSCULOSKELETAL: NCAT /GISELA x 4 / neg straight leg test / pain in left hip and left lower back with HILDA test INTEGUMENT: no pallor NEUROLOGICAL: CN 2-12 intact / speech not dysarthric / strength 5/5 in upper & lower extremities PSYCHIATRIC: A&O / flat affect / psychomotor slowing LABORATORY DATA: 05/10/20 18:40 Immature Granulocyte % (Auto) 0.1, Neutrophils (%) (Auto) 47.0, Lymphocytes (%) (Auto) 43.7, Monocytes (%) (Auto) 6.4H, Eosinophils (%) (Auto) 2.3, Basophils (%) (Auto) 0.5, Neutrophils # (Auto) 3.5, Lymphocytes # (Auto) 3.3, Monocytes # (Auto) 0.5, Eosinophils # (Auto) 0.2, Basophils # (Auto) 0.0, Nucleated Red Blood Cells % (auto) 0.0, Blood Gas Bicarbonate Standard 20.8, Venous Blood pH 7.284L, Venous Blood Partial Pressure CO2 48.8, Venous Blood Partial Pressure O2 76.4H, Venous Blood Total Carbon Dioxide 24.1, Venous Blood HCO3 22.6L, Venous Blood Oxygen Saturation 94.0H, Venous Blood Base Excess -4.3L, Anion Gap 6L, Glomerular Filtration Rate 47.6L, Osmolality 303H, Calcium Level 8.9, Total Bilirubin 0.2, Direct Bilirubin < 0.1, Aspartate Amino Transf (AST/SGOT) 11, Alanine Aminotransferase (ALT/SGPT) 22, Alkaline Phosphatase 71, Ammonia < 10, Total Creatine Kinase 75, Creatine Kinase MB < 1.0, Creatine Kinase MB Relative Index 1.33, Troponin I < 0.02, Total Protein 6.6, Albumin 3.3, Albumin/Globulin Ratio 1.0L, Thyroid Stimulating Hormone (TSH) 1.540, Salicylates Level 1.8L, Acetaminophen Level < 2.0L, Ethyl Alcohol Level < 0.003 05/10/20 19:39: Urine Color STRAW, Urine Appearance CLEAR, Urine pH 6.0, Urine Specific [place] 1.006, Urine Protein NEGATIVE, Urine Glucose (UA) NEGATIVE, Urine Ketones NEGATIVE, Urine Blood NEGATIVE, Urine Nitrite NEGATIVE, Urine Bilirubin NEGATIVE, Urine Urobilinogen 0.2, Urine Leukocyte Esterase 2+H, Urine WBC (Auto) 31H, Urine RBC (Auto) 0, Urine Hyaline Casts (Auto) 0, Urine Bacteria (Auto) NEGATIVE, Urine Squamous Epithelial Cells 0, Urine Sperm (Auto) , Urine Opiates Screen NEGATIVE, Urine Methadone Screen NEGATIVE, Urine Barbiturates Screen NEGATIVE, Urine Phencyclidine Screen NEGATIVE, Urine Amphetamines Screen NEG ATIVE, Urine Benzodiazepines Screen NEGATIVE, Urine Cocaine Metabolite Screen NEGATIVE, Urine Cannabinoids Screen NEGATIVE 05/10/20 20:01: Lactic Acid Level 1.5 IMAGING: CT head IMPRESSION: No acute intracranial abnormality. MICROBIOLOGY: 05/10/20 Urine Culture, Received Pending ASSESSMENT: Ms. Rodriguez is a 60 yr old w a hx of depression, bipolar disorder, migraines and chronic neck and back pain who presented w c/o RIBEIRO, worsening lower back pain and difficulties walking; she will be admitted to complete the work up for her pain and PT eval. PLAN: 1. Chronic Migraines CT head neg Plan: admit to med surg / c/w topiramate / acetaminophen 2. Chronic Neck and Back pain Plan: c/w gabapentin / Flector patches / PT/OT / pending results of f/u CT spine the day time team may consider ortho consults 3. Unsteady Gait Plan: PT 4. HTN Plan: lisinopril 5. NIDDM Plan: AIC, FSBS, SSI, hypoglycemia protocol / hold metformin 6. CAD Plan: bisoprolol 7. Bipolar / Depression Plan: clonazepam, divalproex, fluphenazine 8. Obesity w BMI 31.7 Complicates care Plan: f/u w PCP for sleep apnea screening DVT px w Lovenox Dispo: possibly SNF after more than 2 midnights stay / PFS consult placed Home Medications Scheduled Bisoprolol Fumarate (Bisoprolol Fumarate) 5 Mg Tablet, 5 MG PO DAILY Divalproex Sodium (Divalproex Sodium ER) 500 Mg Tab.er.24h, 500 MG PO QAM Divalproex Sodium (Divalproex Sodium ER) 500 Mg Tab.er.24h, 1,000 MG PO QHS Enalapril Maleate (Enalapril Maleate) 2.5 Mg Tablet, 2.5 MG PO DAILY Fluphenazine HCl (Fluphenazine HCl) 5 Mg Tablet, 5 MG PO TID Gabapentin (Gabapentin) 300 Mg Capsule, 300 MG PO TID Lisinopril (Lisinopril) 40 Mg Tablet, 40 MG PO DAILY Metformin HCl (Metformin HCl) 1,000 Mg Tab, 1,000 MG PO BID Topiramate (Topiramate) 25 Mg Tablet, 25 MG PO BID Scheduled PRN Clonazepam (Clonazepam) 0.5 Mg Tablet, 0.5 MG PO DAILY PRN for ANXIETY/AGITATION Diphenhydramine HCl (Diphenhydramine HCl) 25 Mg Capsule, 25 MG PO QHS PRN for SLEEP Allergies Coded Allergies: Tetanus Vaccines and Toxoid (Verified Allergy, Unknown, 01/04/19) metoprolol (Verified Adverse Reaction, Unknown, SECOND DEGREE HEART BLOCK, 01/04/19) A-FIB/CHADSVASC A-FIB History Current/History of A-Fib/PAF?: No Current PO Anticoag Therapy: No LWANGA,ANNALISA MD May 10, 2020 22:48
--- NOTE | 2020-05-10 22:51 | REPVR ---
PROCEDURE INFORMATION: Exam: CT Thoracic Spine Without Contrast Exam date and time: 05/10/2020 10:30 PM Age: 60 years old Clinical indication: Pain in thoracic spine; Additional info: Back pain difficulty walking TECHNIQUE: Imaging protocol: Computed tomography images of the thoracic spine without contrast. Radiation optimization: All CT scans at this facility use at least one of these dose optimization techniques: automated exposure control; mA and/or kV adjustment per patient size (includes targeted exams where dose is matched to clinical indication); or iterative reconstruction. COMPARISON: No relevant prior studies available. FINDINGS: Vertebrae: No acute fracture. Normal alignment. T1-T2: No significant disc protrusion. No severe spinal canal stenosis. No significant neural foraminal narrowing. T2-T3: No significant disc protrusion. No severe spinal canal stenosis. No significant neural foraminal narrowing. T3-T4: No significant disc protrusion. No severe spinal canal stenosis. No significant neural foraminal narrowing. T4-T5: No significant disc protrusion. No severe spinal canal stenosis. No significant neural foraminal narrowing. T5-T6: No significant disc protrusion. No severe spinal canal stenosis. No significant neural foraminal narrowing. T6-T7: No significant disc protrusion. No severe spinal canal stenosis. No significant neural foraminal narrowing. T7-T8: No significant disc protrusion. No severe spinal canal stenosis. No significant neural foraminal narrowing. T8-T9: No significant disc protrusion. No severe spinal canal stenosis. No significant neural foraminal narrowing. T9-T10: No significant disc protrusion. No severe spinal canal stenosis. No significant neural foraminal narrowing. T10-T11: No significant disc protrusion. No severe spinal canal stenosis. No significant neural foraminal narrowing. T11-T12: No significant disc protrusion. No severe spinal canal stenosis. No significant neural foraminal narrowing. T12-L1: No significant disc protrusion. No severe spinal canal stenosis. No significant neural foraminal narrowing. IMPRESSION: Unremarkable thoracic spine. Electronically signed by: Tristin Franklin On 05/10/2020 22:50:27 PM
[2020-05-10 22:52] LABS: HEMOGLOBIN A1c 6.6 %
--- NOTE | 2020-05-10 22:54 | REPVR ---
PROCEDURE INFORMATION: Exam: CT Lumbar Spine Without Contrast Exam date and time: 05/10/2020 10:30 PM Age: 60 years old Clinical indication: Low back pain; Additional info: Back pain difficulty walking TECHNIQUE: Imaging protocol: Computed tomography images of the lumbar spine without contrast. Radiation optimization: All CT scans at this facility use at least one of these dose optimization techniques: automated exposure control; mA and/or kV adjustment per patient size (includes targeted exams where dose is matched to clinical indication); or iterative reconstruction. COMPARISON: MRI-Spine, L.S. without con 09/29/2015 12:02 PM FINDINGS: Vertebrae: No acute fracture. Normal alignment. L1-L2: Disc bulge. Bilateral facet hypertrophy. No spinal canal stenosis. No neural foraminal narrowing. L2-L3: Disc bulge. Bilateral facet hypertrophy. Mild spinal canal stenosis. Mild bilateral neural foraminal narrowing. L3-L4: Disc bulge. Bilateral facet hypertrophy. Mild spinal canal stenosis. Moderate bilateral neural foraminal narrowing. L4-L5: Disc bulge. Bilateral facet hypertrophy. Mild spinal canal stenosis. Moderate right and severe left neural foraminal narrowing.. No severe spinal canal stenosis. No significant neural foraminal narrowing. L5-S1: Bilateral facet hypertrophy. Mild disc bulge. No spinal canal stenosis. Moderate to severe bilateral neural foraminal narrowing. Soft tissues: Unremarkable. IMPRESSION: No acute fracture. Multilevel degenerative disc disease with neural foraminal narrowing. Mild bilateral neural foraminal narrowing at L2-L3, moderate bilateral L3-L4, moderate right and severe left at L4-L5 and moderate to severe bilateral L5-S1. Mild spinal canal stenosis at L2-L3, L3-L4 and L4-L5. Electronically signed by: Tristin Franklin On 05/10/2020 22:54:31 PM
--- NOTE | 2020-05-10 22:57 | REPVR ---
PROCEDURE INFORMATION: Exam: CT Cervical Spine Without Contrast Exam date and time: 05/10/2020 10:30 PM Age: 60 years old Clinical indication: Neck pain; Additional info: Back pain difficulty walking TECHNIQUE: Imaging protocol: Computed tomography images of the cervical spine without contrast. Radiation optimization: All CT scans at this facility use at least one of these dose optimization techniques: automated exposure control; mA and/or kV adjustment per patient size (includes targeted exams where dose is matched to clinical indication); or iterative reconstruction. COMPARISON: MRI-C SPINE W/O FOLL BY WITH 05/23/2013 2:54 PM FINDINGS: Vertebrae: anterior spinal fixation of C5, C6 and C7 vertebrae. No evidence for hardware loosening or fracture. No acute fracture. No spondylolisthesis. Discs/Spinal canal/Neural foramina: No significant disc protrusion. No severe spinal canal stenosis. No significant neural foraminal narrowing. Soft tissues: Unremarkable. Lungs: Lung apices are normal. IMPRESSION: No acute abnormality. Electronically signed by: Tristin Franklin On 05/10/2020 22:57:09 PM
[2020-05-11 00:58] VITALS: BP 150/82
[2020-05-11] MEDS: TOPIRAMATE (TopAMAX) 25 MG TAB PO SCH ×3 (01:42→20:25)
[2020-05-11] MEDS: DIVALPROEX 500MG *ER* TAB PO SCH ×3 (01:44→20:25)
[2020-05-11] MEDS: DICLOFENAC EPOLAMINE 1.3 % PATCH TOP SCH ×3 (01:45→20:36)
[2020-05-11 06:00] VITALS: BP 115/64
[2020-05-11] MEDS: HumaLOG INSULIN (NovoLOG) PER UNIT SC SCH ×4 (07:30→20:26)
[2020-05-11] MEDS ORDERED: cefTRIAXone SOD 1 GM in D5W MINI-BAG PLUS 50 ML IV SCH (09:00)
[2020-05-11] MEDS: DOCUSATE SODIUM 100 MG CAP PO SCH ×2 (09:25→20:25)
[2020-05-11] MEDS: GABAPENTIN 300 MG CAP PO SCH ×3 (09:25→20:25)
[2020-05-11] MEDS: ENOXAPARIN 40MG/0.4ML SYRINGE (J1650 PER 10MG) SC SCH (09:28)
[2020-05-11] MEDS: lisinopriL 40 MG TAB PO SCH (09:29)
[2020-05-11] MEDS: NYSTATIN 100,000 UNITS/GM TOPICAL PWD 15 GM TOP SCH ×2 (09:44→20:37)
[2020-05-11] MEDS: bisoproloL fumarate 5 MG TAB PO SCH (09:45)
[2020-05-11 11:13] LABS: HEMATOCRIT 44.7 % (36.0-47.0); HEMOGLOBIN 14.6 g/dl (12.0-15.5); MEAN CORPUSCULAR HGB CONC 32.7 g/dl (32.0-36.5); MEAN CORPUSCULAR VOLUME 88.9 fl (80.0-96.0); PLATELET COUNT, AUTOMATED 233 10^3/uL (150-450); RED BLOOD COUNT 5.03 10^6/uL (4.00-5.40); WHITE BLOOD COUNT 5.2 10^3/uL (4.0-10.0)
[2020-05-11] MEDS: IBUPROFEN 600MG TAB PO PRN (11:25)
[2020-05-11 11:33] LABS: CALCIUM LEVEL 9.6 MG/DL (8.5-10.1); CREATININE FOR GFR 1.03 MG/DL (0.55-1.30); GLOMERULAR FILTRATION RATE 58.4 (>51); POTASSIUM SERUM 4.3 MEQ/L (3.5-5.1)
[2020-05-11 12:00] VITALS: BP 150/98
[2020-05-11 14:00] VITALS: BP 142/84
[2020-05-11] MEDS ORDERED: KETOROLAC 30 MG/ML 1ML VIAL IV ONE (15:30)
--- NOTE | 2020-05-11 15:32 | IPNPDOC ---
Date Seen The patient was seen on 05/11/20. Progress Note SUBJECTIVE: Clonus identified on exam, unknown if current MRI brain- will need to TB with MRI in the AM. If none, will get and consider neurological consult. Discussed case with Dr. Shelton about lumbar stenosis and weakness, as patient states she was supposed to see him in an upcoming referral to the o/p office about surgery. He will consult while inpatient. OBJECTIVE: PHYSICAL EXAMINATION: GENERAL APPEARANCE: flat affect /NAD HEENT: no conjunctival injection / MM pink and dry CARDIOVASCULAR: RRR/NMRG / no BLE edema LUNGS: CTAB on RA MUSCULOSKELETAL: NCAT /GISELA x 4 / neg straight leg test / pain in left hip and left lower back with HILDA test INTEGUMENT: no pallor NEUROLOGICAL: No inguinal numbness, sensory and motor are intact in all extremities. + nonsustained clonus bilateral lower ext, tremoring unintentional and at rest of upper and lower ext. CN 2-12 intact, speech not dysarthric, strength 5/5 in upper & lower extremities PSYCHIATRIC: A&O / flat affect / psychomotor slowing LABORATORY DATA: 05/10/20 18:40 IMAGING: CT head, CT thoracic spine, CT lumbar spine, CT cervical spine- please see transcribed report MICROBIOLOGY: UCx pending ASSESSMENT: Ms. Rodriguez is a 60 yr old w a hx of depression, bipolar disorder, migraines and chronic neck and back pain who presented w c/o RIBEIRO, worsening lower back pain and difficulties walking, newly identified clonus. PLAN: 1. Unsteady gait 2/2 to increasing tremors, lumbar stenosis. unknown if patient has had MRI brain to r/o neurological process recently with increasing upper and lower tremoring, + clonus so will need to be concerned for upper motor neuron lesion perhaps. + lumbar stenosis mod-severe on CT. Discussed with Dr. Shelton, will come to see 05/12 after reviewing prior scans. Will tb with MRI tomorrow to see if prior MRI brain, if not, will order and further assess clonus. For now, c/w PT/OT, f/u recommendations. Pain regimen. May require neurological consult. 2. Mod-Severe lumbar spinal stenosis. Please see plan above. 3. Chronic Migraines. CT head neg. Given dose of toradol today. C/w topiramate, acetaminophen 4. Chronic Neck and Back pain. CT scans of spine transcribed. C/w gabapentin / Flector patches / PT/OT. 5. HTN. Stable. C/w lisinopril 6. NIDDM. AIC, FSBS, SSI, hypoglycemia protocol / hold metformin 7. CAD. C/w bisoprolol 8. Bipolar / Depression. C/w clonazepam, divalproex, fluphenazine 9. DVT px w Lovenox DISPOSITION: We need to thoroughly exam causes for worsening weakness, fall and clonus prior to deciding discharge plan. F/u plan above, PT/OT. VS, I&O, 24H, Fishbone Vital Signs/I&O Vital Signs Date Time Temp Pulse Resp B/P (MAP) Pulse Ox O2 Delivery O2 Flow Rate FiO2 05/11/20 14:00 98.6 67 18 142/84 (103) 97 Room Air I&O- Last 24 Hours up to 6 AM 05/11/20 06:00 Intake Total 2050 ml Output Total 600 ml Balance 1450 ml Laboratory Data 24H LABS Laboratory Tests 2 05/10/20 18:40: Immature Granulocyte % (Auto) 0.1, Neutrophils (%) (Auto) 47.0, Lymphocytes (%) (Auto) 43.7, Monocytes (%) (Auto) 6.4H, Eosinophils (%) (Auto) 2.3, Basophils (%) (Auto) 0.5, Neutrophils # (Auto) 3.5, Lymphocytes # (Auto) 3.3, Monocytes # (Auto) 0.5, Eosinophils # (Auto) 0.2, Basophils # (Auto) 0.0, Nucleated Red Blood Cells % (auto) 0.0, Blood Gas Bicarbonate Standard 20.8, Venous Blood pH 7.284L, Venous Blood Partial Pressure CO2 48.8, Venous Blood Partial Pressure O2 76.4H, Venous Blood Total Carbon Dioxide 24.1, Venous Blood HCO3 22.6L, Venous Blood Oxygen Saturation 94.0H, Venous Blood Base Excess -4.3L, Anion Gap 6L, Glomerular Filtration Rate 47.6L, Estimated Mean Plasma Glucose 143H, Hemoglobin A1c 6.6, Osmolality 303H, Calcium Level 8.9, Total Bilirubin 0.2, Direct Bilirubin < 0.1, Aspartate Amino Transf (AST/SGOT) 11, Alanine Aminotransferase (ALT/SGPT) 22, Alkaline Phosphatase 71, Ammonia < 10, Total Creatine Kinase 75, Creatine Kinase MB < 1.0, Creatine Kinase MB Relative Index 1.33, Troponin I < 0.02, Total Protein 6.6, Albumin 3.3, Albumin/Globulin Ratio 1.0L, Thyroid Stimulating Hormone (TSH) 1.540, Salicylates Level 1.8L, Acetaminophen Level < 2.0L, Ethyl Alcohol Level < 0.003 05/10/20 19:39: Urine Color STRAW, Urine Appearance CLEAR, Urine pH 6.0, Urine Specific [place] 1.006, Urine Protein NEGATIVE, Urine Glucose (UA) NEGATIVE, Urine Ketones NEGATIVE, Urine Blood NEGATIVE, Urine Nitrite NEGATIVE, Urine Bilirubin NEGATIVE, Urine Urobilinogen 0.2, Urine Leukocyte Esterase 2+H, Urine WBC (Auto) 31H, Urine RBC (Auto) 0, Urine Hyaline Casts (Auto) 0, Urine Bacteria (Auto) NEGATIVE, Urine Squamous Epithelial Cells 0, Urine Sperm (Auto) , Urine Opiates Screen NEGATIVE, Urine Methadone Screen NEGATIVE, Urine Barbiturates Screen NEGATIVE, Urine Phencyclidine Screen NEGATIVE, Urine Amphetamines Screen NEGATIVE, Urine Benzodiazepines Screen NEGATIVE, Urine Cocaine Metabolite Screen NEGATIVE, Urine Cannabinoids Screen NEGATIVE 05/10/20 20:01: Lactic Acid Level 1.5 05/11/20 10:32: Nucleated Red Blood Cells % (auto) 0.0, Anion Gap 9, Glomerular Filtration Rate 58.4, Calcium Level 9.6 CBC/BMP Laboratory Tests 05/10/20 18:40 05/11/20 10:32 Microbiology Microbiology 05/11/20 Blood Culture, Received Pending 05/11/20 Blood Culture, Received Pending 05/10/20 Urine Culture, Received Pending Current Medications Current Medications Medications (Trade) Dose Ordered Sig/Rao Route PRN Reason Start Time Stop Time Status Last Admin Dose Admin Acetaminophen (Tylenol Tab) 650 mg Q4H PRN PO PAIN OR FEVER 05/10/20 22:30 Bisoprolol Fumarate (Zebeta) 5 mg DAILY PO 05/11/20 09:00 05/11/20 09:45 Ceftriaxone Sodium 1 gm/ Dextrose 50 ml @ 100 mls/hr Q24H IV 05/11/20 09:00 05/11/20 09:26 Clonazepam (KlonoPIN) 0.5 mg DAILY PRN PO ANXIETY/AGITATION 05/10/20 22:45 Dextrose (Dextrose 50%) 25 ml ASDIRECTED PRN IV SEE LABEL COMMENTS 05/10/20 22:45 Diclofenac Epolamine (Flector 1.3%) 2 patch Q12H TOP 05/10/20 21:00 05/11/20 09:43 Divalproex Sodium (Depakote Er) 500 mg QAM PO 05/11/20 09:00 05/11/20 09:25 Divalproex Sodium (Depakote Er) 1,000 mg QHS PO 05/10/20 23:00 05/11/20 01:44 Docusate Sodium (Colace) 100 mg BID PO 05/11/20 09:00 05/11/20 09:25 Enoxaparin Sodium (Lovenox) 40 mg DAILY SC 05/11/20 09:00 05/11/20 09:28 Fluphenazine HCl (Prolixin) 5 mg TID PO 05/10/20 23:00 05/11/20 09:38 Gabapentin (Neurontin) 300 mg TID PO 05/11/20 09:00 05/11/20 09:25 Glucagon (Glucagon) 1 mg ASDIRECTED PRN SC SEE LABEL COMMENTS 05/10/20 22:45 Glucose (Glucose) 16 GM ASDIRECTED PRN PO SEE LABEL COMMENTS 05/10/20 22:45 Home Med (Med Rec Complete!) ASDIRECTED XX 05/10/20 19:15 05/10/20 19:03 DC Ibuprofen (Advil) 600 mg Q8HP PRN PO PAIN 05/11/20 10:45 05/11/20 11:25 Insulin Human Lispro (HumaLOG INSULIN) See Protocol Table AC SC 05/11/20 07:30 05/11/20 13:09 Insulin Human Lispro (HumaLOG INSULIN) See Protocol Table QHS SC 05/11/20 21:00 Lisinopril (Prinivil) 40 mg DAILY PO 05/11/20 09:00 05/11/20 09:29 Nystatin (Mycostatin Powder, Nystop) apply under mingo... BID TOP 05/11/20 09:00 05/11/20 09:44 Prochlorperazine (Compazine) 10 mg Q6HP PRN IV VOMITING 05/10/20 15:45 05/10/20 23:56 DC 05/10/20 16:01 Sodium Chloride 1,000 ml @ 100 mls/hr Q10H IV 05/10/20 17:51 05/10/20 23:56 DC 05/10/20 18:51 Topiramate (TopAMAX) 25 mg BID PO 05/10/20 23:00 05/11/20 09:24 Allergies Coded Allergies: Tetanus Vaccines and Toxoid (Verified Allergy, Unknown, 01/04/19) metoprolol (Verified Adverse Reaction, Unknown, SECOND DEGREE HEART BLOCK, 01/04/19) Juliana Grant MD May 11, 2020 15:32
[2020-05-11 20:10] VITALS: BP 172/80
[2020-05-11] MEDS: ACETAMINOPHEN TAB 650MG DOSE (2X325MG) PO PRN (20:25)
[2020-05-11] MEDS: **hydrALAZINE HCL** 25 MG TAB PO SCH (21:15)
[2020-05-11 23:25] VITALS: BP 141/65
[2020-05-12] MEDS: IBUPROFEN 600MG TAB PO PRN ×2 (02:42→13:35)
[2020-05-12 06:00] VITALS: BP 133/74
[2020-05-12] MEDS: HumaLOG INSULIN (NovoLOG) PER UNIT SC SCH ×4 (07:30→20:14)
[2020-05-12] MEDS: ACETAMINOPHEN TAB 650MG DOSE (2X325MG) PO PRN ×2 (07:34→18:50)
[2020-05-12 08:16] LABS: HEMATOCRIT 38.8 % (36.0-47.0); HEMOGLOBIN 12.7 g/dl (12.0-15.5); MEAN CORPUSCULAR HGB CONC 32.7 g/dl (32.0-36.5); MEAN CORPUSCULAR VOLUME 88.6 fl (80.0-96.0); PLATELET COUNT, AUTOMATED 188 10^3/uL (150-450); RED BLOOD COUNT 4.38 10^6/uL (4.00-5.40); WHITE BLOOD COUNT 5.9 10^3/uL (4.0-10.0)
[2020-05-12] MEDS: GABAPENTIN 300 MG CAP PO SCH ×3 (08:36→20:12)
[2020-05-12] MEDS: TOPIRAMATE (TopAMAX) 25 MG TAB PO SCH ×2 (08:36→20:11)
[2020-05-12] MEDS: DOCUSATE SODIUM 100 MG CAP PO SCH ×2 (08:36→20:12)
[2020-05-12] MEDS: DIVALPROEX 500MG *ER* TAB PO SCH ×2 (08:36→20:12)
[2020-05-12] MEDS: NYSTATIN 100,000 UNITS/GM TOPICAL PWD 15 GM TOP SCH ×2 (08:37→20:12)
[2020-05-12] MEDS: ENOXAPARIN 40MG/0.4ML SYRINGE (J1650 PER 10MG) SC SCH (08:37)
[2020-05-12] MEDS: lisinopriL 40 MG TAB PO SCH (08:39)
[2020-05-12] MEDS: **hydrALAZINE HCL** 25 MG TAB PO SCH ×2 (08:40→20:28)
[2020-05-12 08:47] LABS: ALBUMIN 3.1 GM/DL (3.2-5.2); BILIRUBIN,TOTAL 0.2 MG/DL (0.2-1.0); CALCIUM LEVEL 9.4 MG/DL (8.5-10.1); CREATININE FOR GFR 1.06 MG/DL (0.55-1.30); GLOMERULAR FILTRATION RATE 56.5 (>51); TOTAL PROTEIN 6.4 GM/DL (6.4-8.2)
--- NOTE | 2020-05-12 13:33 | REPVR ---
PROCEDURE INFORMATION: Exam: MR Head Without Contrast Exam date and time: 05/12/2020 12:33 PM Age: 60 years old Clinical indication: Other: Tremors; Additional info: Tremoring, clonus R/O cord compression TECHNIQUE: Imaging protocol: MR of the head without contrast. COMPARISON: MRI-Brain without Contrast 12/05/2017 9:53 AM FINDINGS: Brain: There is no extra-axial collection or intra-axial mass. Mild to moderate diffuse volume loss is within the range of normal for patient age. There are foci of increased T2 and FLAIR signal within the periventricular and subcortical white matter and substance of the jae, nonspecific but typically small-vessel ischemia in this age group. There is no diffusion restriction. Ventricles: Prominence of the ventricular system is commensurate with volume loss. Bones/joints: Unremarkable. Sinuses: Normal as visualized. No acute sinusitis. Mastoid air cells: Normal as visualized. No mastoid effusion. Orbits: Unremarkable. Soft tissues: Unremarkable. IMPRESSION: No acute findings. Electronically signed by: Mandi Villalta On 05/12/2020 13:32:49 PM
[2020-05-12] MEDS: DICLOFENAC EPOLAMINE 1.3 % PATCH TOP SCH ×2 (13:35→20:11)
[2020-05-12 14:00] VITALS: BP 158/77
--- NOTE | 2020-05-12 14:00 | REPVR ---
PROCEDURE INFORMATION: Exam: MR Cervical Spine Without Contrast Exam date and time: 05/12/2020 12:33 PM Age: 60 years old Clinical indication: Other: Clonus R/O cord compression; Prior surgery; Surgery date: 6+ months; Surgery type: Fusion; Additional info: Tremoring, clonus R/O cord compression TECHNIQUE: Imaging protocol: Sagittal magnetic resonance images of the cervical spine without contrast. The patient refused to complete the examination. No axial images were obtained. COMPARISON: CT Spine,cervical w/o contrast 05/10/2020 10:24 PM FINDINGS: Vertebrae: There are ventral fixation plates and screws from C5 to C7. There is no fracture or listhesis. Spinal cord: The cervicomedullary junction and cervical cord appear normal Neural foramina: Not well evaluated secondary to the lack of axial imaging. Soft tissues: Unremarkable. IMPRESSION: No spinal canal compromise. Neural foramina are not well assessed secondary to the lack of axial images. Electronically signed by: Mandi Villalta On 05/12/2020 13:59:40 PM
[2020-05-12] MEDS: bisoproloL fumarate 5 MG TAB PO SCH (16:43)
--- NOTE | 2020-05-12 18:35 | IPNPDOC ---
Date Seen The patient was seen on 05/12/20. Progress Note SUBJECTIVE: No clonus on exam today, patient could not tolerate noncontrast MRI and needed to be stopped due to claustrophobia. F/u orthopedic consult note. Patient denies increased weakness, chest pain, n/v/d. Neurology to see today. OBJECTIVE: PHYSICAL EXAMINATION: GENERAL APPEARANCE: flat affect /NAD HEENT: no conjunctival injection / MM pink and dry CARDIOVASCULAR: RRR/NMRG / no BLE edema LUNGS: CTAB on RA MUSCULOSKELETAL: NCAT /GISELA x 4 / neg straight leg test / pain in left hip and left lower back with HILDA test INTEGUMENT: no pallor NEUROLOGICAL: No inguinal numbness, sensory and motor are intact in all extremities. no clonus bilaterally today, also no tremoring in extremities during physical exam. CN 2-12 intact, speech not dysarthric, strength 5/5 in upper & lower extremities PSYCHIATRIC: A&O / flat affect / psychomotor slowing LABORATORY DATA: 05/10/20 18:40 IMAGING: CT head, CT thoracic spine, CT lumbar spine, CT cervical spine- please see transcribed report Brain MRI: No acute findings Cervical MRI: No spinal canal compromise. Neural foramina are not well assessed secondary to the lack of axial images. MICROBIOLOGY: UCx-NG BCx- NG x 2 sets ASSESSMENT: Ms. Rodriguez is a 60 yr old w a hx of depression, bipolar disorder, migraines and chronic neck and back pain who presented w c/o RIBEIRO, worsening lower back pain and difficulties walking, weakness bilateral lower ext. PLAN: 1. Unsteady gait 2/2 to increasing tremors, lumbar stenosis. MRI brain, cervical spine above- no spinal canal comprimise. Clonus and tremoring/spasticity seen on exam 05/11/20 not seen today. F/u neurology and orthopedic surgery consult notes. For now, c/w PT/OT, f/u recommendations. Pain regimen. 2. Mod-Severe lumbar spinal stenosis. Please see plan above. 3. Chronic Migraines. CT head neg. C/w topiramate, acetaminophen, ibuprofen. 4. Chronic Neck and Back pain. C/w gabapentin, PT/OT. 5. HTN. Stable. C/w lisinopril 6. NIDDM. AIC, FSBS, SSI, hypoglycemia protocol / hold metformin 7. CAD. C/w bisoprolol 8. Bipolar / Depression. C/w clonazepam, divalproex, fluphenazine 9. DVT px w Lovenox DISPOSITION: F/u neurology and orthopedic surgery recommendations. C/w PT/OT. VS, I&O, 24H, Fishbone Vital Signs/I&O Vital Signs Date Time Temp Pulse Resp B/P (MAP) Pulse Ox O2 Delivery O2 Flow Rate FiO2 05/12/20 16:43 56 158/77 05/12/20 14:00 98.1 16 97 Room Air I&O- Last 24 Hours up to 6 AM 05/12/20 06:00 Intake Total 1490 ml Output Total 975 ml Balance 515 ml Laboratory Data 24H LABS Laboratory Tests 2 05/12/20 07:50: Nucleated Red Blood Cells % (auto) 0.0, Anion Gap 8, Glomerular Filtration Rate 56.5, Calcium Level 9.4, Total Bilirubin 0.2, Aspartate Amino Transf (AST/SGOT) 12, Alanine Aminotransferase (ALT/SGPT) 23, Alkaline Phosphatase 67, Total Protein 6.4, Albumin 3.1L, Albumin/Globulin Ratio 0.9L CBC/BMP Laboratory Tests 05/12/20 07:50 Microbiology Microbiology 05/11/20 Blood Culture - Preliminary, Resulted No growth after 24 hours . All specim... 05/11/20 Blood Culture - Preliminary, Resulted No growth after 24 hours . All specim... 05/10/20 Urine Culture - Final, Complete Current Medications Current Medications Medications (Trade) Dose Ordered Sig/Rao Route PRN Reason Start Time Stop Time Status Last Admin Dose Admin Acetaminophen (Tylenol Tab) 650 mg Q4H PRN PO PAIN OR FEVER 05/10/20 22:30 05/12/20 07:34 Bisoprolol Fumarate (Zebeta) 5 mg DAILY PO 05/11/20 09:00 05/12/20 16:43 Ceftriaxone Sodium 1 gm/ Dextrose 50 ml @ 100 mls/hr Q24H IV 05/11/20 09:00 05/12/20 08:27 DC 05/11/20 09:26 Clonazepam (KlonoPIN) 0.5 mg DAILY PRN PO ANXIETY/AGITATION 05/10/20 22:45 Dextrose (Dextrose 50%) 25 ml ASDIRECTED PRN IV SEE LABEL COMMENTS 05/10/20 22:45 Diclofenac Epolamine (Flector 1.3%) 2 patch Q12H TOP 05/10/20 21:00 05/12/20 13:35 Divalproex Sodium (Depakote Er) 500 mg QAM PO 05/11/20 09:00 05/12/20 08:36 Divalproex Sodium (Depakote Er) 1,000 mg QHS PO 05/10/20 23:00 05/11/20 20:25 Docusate Sodium (Colace) 100 mg BID PO 05/11/20 09:00 05/12/20 08:36 Enoxaparin Sodium (Lovenox) 40 mg DAILY SC 05/11/20 09:00 05/12/20 08:37 Fluphenazine HCl (Prolixin) 5 mg TID PO 05/10/20 23:00 05/12/20 16:43 Gabapentin (Neurontin) 300 mg TID PO 05/11/20 09:00 05/12/20 16:43 Glucagon (Glucagon) 1 mg ASDIRECTED PRN SC SEE LABEL COMMENTS 05/10/20 22:45 Glucose (Glucose) 16 GM ASDIRECTED PRN PO SEE LABEL COMMENTS 05/10/20 22:45 Home Med (Med Rec Complete!) ASDIRECTED XX 05/10/20 19:15 05/10/20 19:03 DC Hydralazine HCl (Apresoline) 25 mg BID PO 05/11/20 21:00 05/12/20 08:40 Ibuprofen (Advil) 600 mg Q8HP PRN PO PAIN 05/11/20 10:45 05/12/20 13:35 Insulin Human Lispro (HumaLOG INSULIN) See Protocol Table AC SC 05/11/20 07:30 05/12/20 13:36 Insulin Human Lispro (HumaLOG INSULIN) See Protocol Table QHS SC 05/11/20 21:00 Lisinopril (Prinivil) 40 mg DAILY PO 05/11/20 09:00 05/12/20 08:39 Nystatin (Mycostatin Powder, Nystop) apply under mingo... BID TOP 05/11/20 09:00 05/12/20 08:37 Prochlorperazine (Compazine) 10 mg Q6HP PRN IV VOMITING 05/10/20 15:45 05/10/20 23:56 DC 05/10/20 16:01 Sodium Chloride 1,000 ml @ 100 mls/hr Q10H IV 05/10/20 17:51 05/10/20 23:56 DC 05/10/20 18:51 Topiramate (TopAMAX) 25 mg BID PO 05/10/20 23:00 05/12/20 08:36 Allergies Coded Allergies: Tetanus Vaccines and Toxoid (Verified Allergy, Unknown, 01/04/19) metoprolol (Verified Adverse Reaction, Unknown, SECOND DEGREE HEART BLOCK, 01/04/19) Juliana Grant MD May 12, 2020 18:35
[2020-05-12] MEDS ORDERED: lisinopriL 10 MG TAB PO ONE (20:30)
[2020-05-12 21:00] VITALS: BP 168/73
[2020-05-13] MEDS: IBUPROFEN 600MG TAB PO PRN ×2 (03:06→11:43)
[2020-05-13] MEDS: ACETAMINOPHEN TAB 650MG DOSE (2X325MG) PO PRN (04:26)
[2020-05-13 06:00] VITALS: BP 162/73
[2020-05-13 06:32] LABS: HEMATOCRIT 37.3 % (36.0-47.0); HEMOGLOBIN 12.2 g/dl (12.0-15.5); MEAN CORPUSCULAR HEMOGLOBIN 29.2 pg (27.0-33.0); MEAN CORPUSCULAR HGB CONC 32.7 g/dl (32.0-36.5); MEAN CORPUSCULAR VOLUME 89.2 fl (80.0-96.0); PLATELET COUNT, AUTOMATED 169 10^3/uL (150-450); RED BLOOD COUNT 4.18 10^6/uL (4.00-5.40); WHITE BLOOD COUNT 6.7 10^3/uL (4.0-10.0)
[2020-05-13 06:59] LABS: ALT/SGPT 22 U/L (12-78); BILIRUBIN,TOTAL 0.1 MG/DL (0.2-1.0); BLOOD UREA NITROGEN 23 MG/DL (7-18); CALCIUM LEVEL 9.3 MG/DL (8.5-10.1); CARBON DIOXIDE LEVEL 25 MEQ/L (21-32); CHLORIDE LEVEL 112 MEQ/L (98-107); CREATININE FOR GFR 0.92 MG/DL (0.55-1.30); GLOMERULAR FILTRATION RATE > 60.0 (>51); GLUCOSE, FASTING 92 MG/DL (70-100); POTASSIUM SERUM 4.1 MEQ/L (3.5-5.1); SODIUM LEVEL 144 MEQ/L (136-145); TOTAL PROTEIN 6.1 GM/DL (6.4-8.2)
[2020-05-13] MEDS: HumaLOG INSULIN (NovoLOG) PER UNIT SC SCH ×2 (07:30→12:00)
[2020-05-13] MEDS: bisoproloL fumarate 5 MG TAB PO SCH (08:19)
[2020-05-13 08:26] VITALS: BP 161/67
[2020-05-13] MEDS: DOCUSATE SODIUM 100 MG CAP PO SCH (08:26)
[2020-05-13] MEDS: lisinopriL 40 MG TAB PO SCH (08:26)
[2020-05-13] MEDS: **hydrALAZINE HCL** 25 MG TAB PO SCH (08:26)
[2020-05-13] MEDS: TOPIRAMATE (TopAMAX) 25 MG TAB PO SCH (08:26)
[2020-05-13] MEDS: GABAPENTIN 300 MG CAP PO SCH (08:26)
[2020-05-13] MEDS: DIVALPROEX 500MG *ER* TAB PO SCH (08:26)
[2020-05-13] MEDS: ENOXAPARIN 40MG/0.4ML SYRINGE (J1650 PER 10MG) SC SCH (08:27)
[2020-05-13] MEDS: NYSTATIN 100,000 UNITS/GM TOPICAL PWD 15 GM TOP SCH (08:27)
[2020-05-13] MEDS: DICLOFENAC EPOLAMINE 1.3 % PATCH TOP SCH (08:27)
[2020-05-13] MEDS ORDERED: BENZTROPINE 0.5 MG TAB PO SCH (09:00)
[2020-05-13] MEDS ORDERED: DOCU100C16 PO (13:03)
[2020-05-13] MEDS ORDERED: DICL1PAT6 TOP (13:03)
[2020-05-13] MEDS ORDERED: DICL1GEL TOP (13:23)
--- NOTE | 2020-05-13 14:04 | DS.PDOC ---
Discharge Summary General Date of Admission May 10, 2020 at 22:23 Date of Discharge 05/13/2020 Attending Physician: SHAHEEN FREY MD Discharge Summary PROCEDURES PERFORMED DURING STAY: None ADMITTING DIAGNOSES: 1. Headache 2. Difficulty walking DISCHARGE DIAGNOSES: 1. Parkinonism 2. Lumbar spinal stenosis 3. Acute on chronic episodic migraine headaches 4. Chronic neck and back pain s/p C5-7 fusion 5. Chronic HTN 6. NIDM2 7. chornic CAD s/p remote placement of 2 stents 8. Bipolar II Disorder 9. MDD COMPLICATIONS/CHIEF COMPLAINT: Difficulty Walking, Headache. HISTORY OF PRESENT ILLNESS: 60 yr old W who presented with an 8 to 10/10 frontal headache that she reported has been on and off for 5 years. On presentation, the RIBEIRO radiated to the back of her head, was sharp, improved with heat, was made worse with noise and was associated with blurry vision. She denied having f/c/n/v. She also report acute on chronic back pain that had gotten worse than her baseline pain over the last few weeks and difficulties walking. She uses a rolling walker and was last able to ambulate earlier on on the day of presentation. HOSPITAL COURSE: While inpatient, she had a head CT that was negative for hemorrhage or masses, an MRI that was negative for acute pathology or stroke, cervical spine CT that showed no acute significant pathology and a CT lumbar spine that showed moderate to severe stenosis for which she will be following up with Dr. Shelton in the outpatient setting. She was seen by Dr. White (neurology) for consultation who recommended outpatient followup with neurology in the outpatient setting. Of note, she had been previously referred to see Dr. Shelton in clinic but had not yet made it for an appointment. Her headache eventually resolved after hydration and pain management and she worked with PT and cleared for safe discharge home and will follow up with neurology and orthopedic surgery in clinic. DISCHARGE MEDICATIONS: Please see below. ALLERGIES: Please see below. PHYSICAL EXAMINATION ON DISCHARGE: VITAL SIGNS: Please see below. GENERAL APPEARANCE: NAD HEENT: no conjunctival injection, moist mucous membranes CARDIOVASCULAR: RRR, no mrg LUNGS: CTAB NEUROLOGICAL: CN2-12 intact. Has baseline resting tremor. Sensory and motor are intact in all extremities. GISELA x 4, neg straight leg test, no clonus, speech not dysarthric, strength 5/5 in upper & lower extremities PSYCHIATRIC: A&O x 3, flat affect, psychomotor slowing LABORATORY DATA: Please see below. IMAGING: CT head, CT thoracic spine, CT lumbar spine, CT cervical spine- please see transcribed report Brain MRI: No acute findings Cervical MRI: No spinal canal compromise. Neural foramina are not well assessed secondary to the lack of axial images. PROGNOSIS: Good ACTIVITY: As tolerated DIET: Regular DISCHARGE PLAN: Home with neurology and orthopedics follow up DISPOSITION: Home DISCHARGE INSTRUCTIONS: 1. Home with neurology and orthopedics follow up ITEMS TO FOLLOWUP ON ON OUTPATIENT: 1. Migraines 2. Spinal stenosis 3. Parkinsonism DISCHARGE CONDITION: Stable TIME SPENT ON DISCHARGE: 36 minutes. Vital Signs/I&Os Vital Signs Date Time Temp Pulse Resp B/P (MAP) Pulse Ox O2 Delivery O2 Flow Rate FiO2 05/13/20 08:26 161/67 05/13/20 08:19 55 05/13/20 06:00 97.6 18 97 Room Air I&O- Last 24 Hours up to 6 AM 05/13/20 06:00 Intake Total 1585 ml Output Total 925 ml Balance 660 ml Laboratory Data Labs 24H Laboratory Tests 2 05/13/20 06:17: Nucleated Red Blood Cells % (auto) 0.0, Anion Gap 7L, Glomerular Filtration Rate > 60.0, Calcium Level 9.3, Total Bilirubin 0.1L, Aspartate Amino Transf (AST/S GOT) 14, Alanine Aminotransferase (ALT/SGPT) 22, Alkaline Phosphatase 60, Total Protein 6.1L, Albumin 3.0L, Albumin/Globulin Ratio 1.0L CBC/BMP Laboratory Tests 05/13/20 06:17 Microbiology Microbiology 05/11/20 Blood Culture - Preliminary, Resulted No Growth after 48 hours. All Specime... 05/11/20 Blood Culture - Preliminary, Resulted No Growth after 48 hours. All Specime... 05/10/20 Urine Culture - Final, Complete Discharge Medications Scheduled Bisoprolol Fumarate (Bisoprolol Fumarate) 5 Mg Tablet, 5 MG PO DAILY, (Reported) Diclofenac Sodium (Diclofenac Sodium) 3% 100GM Gel..gram., 1 APLCT TOP BID Divalproex Sodium (Divalproex Sodium ER) 500 Mg Tab.er.24h, 500 MG PO QAM, (Reported) Divalproex Sodium (Divalproex Sodium ER) 500 Mg Tab.er.24h, 1,000 MG PO QHS, (Reported) Docusate Sodium (Docusate Sodium) 100 Mg Capsule, 100 MG PO BID Enalapril Maleate (Enalapril Maleate) 2.5 Mg Tablet, 2.5 MG PO DAILY, (Reported) Fluphenazine HCl (Fluphenazine HCl) 5 Mg Tablet, 5 MG PO TID, (Reported) Gabapentin (Gabapentin) 300 Mg Capsule, 300 MG PO TID, (Reported) Lisinopril (Lisinopril) 40 Mg Tablet, 40 MG PO DAILY, (Reported) Metformin HCl (Metformin HCl) 1,000 Mg Tab, 1,000 MG PO BID, (Reported) Topiramate (Topiramate) 25 Mg Tablet, 25 MG PO BID, (Reported) Scheduled PRN Clonazepam (Clonazepam) 0.5 Mg Tablet, 0.5 MG PO DAILY PRN for ANXIETY/AGITATION, (Reported) Diphenhydramine HCl (Diphenhydramine HCl) 25 Mg Capsule, 25 MG PO QHS PRN for SLEEP, (Reported) Allergies Coded Allergies: Tetanus Vaccines and Toxoid (Verified Allergy, Unknown, 01/04/19) metoprolol (Verified Adverse Reaction, Unknown, SECOND DEGREE HEART BLOCK, 01/04/19) SHAHEEN FREY MD May 13, 2020 14:04
[2020-05-13] MEDS ORDERED: TOPI50TA9 PO (14:09)
[2020-05-13] MEDS ORDERED: BENZ0.5T23 PO (14:09)
--- NOTE | 2020-05-13 14:10 | CR ---
DATE OF CONSULTATION: 05/12/2020 PROVIDER REQUESTING CONSULTATION: Juliana Grant MD ATTENDING PHYSICIAN: Adrian Shelton MD CHIEF COMPLAINT: Low back pain with CT scan showing lumbosacral spinal stenosis. HISTORY: Patient is a 60-year-old female currently admitted for severe headaches. She also has chronic low back pain that has been worse than usual over the last few weeks. She complains of difficulty walking. She is using a rolling walker. Is able to ambulate a little on her own since being in the hospital. She was started on gabapentin, Flector patches, and physical therapy/occupational therapy (PT/OT) was ordered. She has a lumbar spine CT scan revealing spinal stenosis with neuroforaminal narrowing at multiple levels. Orthopaedics was consulted. Patient denies any fevers, chills, nausea, vomiting, or diarrhea. She does have intermittent urge incontinence but otherwise no problems with bowel or bladder control issues. She does have radiating pain into the buttocks on the right radiating down the posterior leg to the level of her ankle. She has some intermittent numbness and tingling in the right lower extremity as well. No complaints of saddle anesthesia. PHYSICAL EXAMINATION: General: Well-nourished, well-developed female in no apparent distress. She is alert, oriented, and cooperative. Mood and affect are appropriate. Vital signs: Blood pressure 158/77, pulse oximetry 97, heart rate 51, temperature 98.1, respirations 16. Cardiovascular: Patients bilateral lower extremities appear to be warm and well-perfused. She has palpable dorsalis pedis pulses which are equal bilaterally. Pulmonary: Breathing is regular and non-labored. Musculoskeletal: Patient does have tenderness to palpation along the lumbar spine. She does have good motion of the bilateral lower extremities with 5/5 strength. Her extensor hallucis longus (EHL) is intact. No saddle anesthesia. Sensation in the remaining bilateral lower extremities is normal. She is able to walk without the assistance of her rolling walker. She has a non wide-based gait. Deep tendon reflexes are absent at both the knees and ankles. She does have approximately 5-6 beats of clonus on the right lower extremity. Left lower extremity has approximately two beats. Patient has good active range of motion of the trunk. Anal tone is normal. She has a negative straight leg raise in the bilateral lower extremities. She has a negative Hoffmanns test. Cervical spine MRI impression shows no spinal canal compromise. Neural foramen were not well-assessed secondary to lack of axial images. There are ventral fixation plates and screws from a C5-C7 fusion. Thoracic spine CT scan is unremarkable. Lumbar spine CT scan shows multilevel degenerative disc disease with neuroforaminal narrowing. Mild bilateral neuroforaminal narrowing at L2-3, moderate bilateral L3-L4, moderate right and severe left at L4-L5, and moderate to severe bilaterally at L5-S1. There is also mild spinal canal stenosis at L2- 3, L3-4, and L4-5. IMPRESSION: Lumbosacral spinal stenosis with multilevel degenerative changes resulting in moderate to severe neuroforaminal narrowing at multiple levels, most pronounced at L4-5 and L5-S1. PLAN: I did discuss this case with Dr. Shelton, our orthopaedic spine surgeon. Patient does have an outpatient appointment with him scheduled for 05/29/2020. She will go ahead and keep that appointment. Recommendation is to continue gabapentin and Flector patches. Recommend continuing physical therapy/occupational therapy (PT/OT). Recommend neurology consultation. We will be happy to see patient again if there is any worsening in symptoms or if there are any other concerns prior to her outpatient appointment. RENO
[2020-05-13] MEDS ORDERED: TOPIRAMATE (TopAMAX) 25 MG TAB PO SCH (21:00)
--- NOTE | 2020-05-24 22:50 | CR ---
DATE OF CONSULTATION: 05/12/2020 REFERRING PHYSICIAN: Dr. Juliana Grant REASON FOR CONSULTATION: Multiple neurological complaints. HISTORY OF PRESENT ILLNESS: Fernanda Rodriguez is a 60-year-old woman with history of bipolar disorder, chronic neck and back pain, who presented to [facility] due to severe headaches which have been going on for five years. Patient stated that she has headaches four times a week which are bilateral, frontal, and occipital, 7-10/10 in intensity, lasting all day, with intermittent nausea, photophobia, and phonophobia. Patient states that she stayed for 2 weeks at [facility] and was trying to figure out her difficulty walking which started the last 1 month. She denied any flu, cold, sinus, gastrointestinal (GI) symptoms over the last couple of months. She has urinary tract infection which is being treated. Patient states that she has chronic neck and back pain. She had cervical laminectomy in the year 2000. She continues to have 8-10/10 neck pain. Over the last couple of years, she also has back pain which ranges between 8-10/10 in intensity and radiates down both her legs. She states that she has tremors for the last couple of months. When I walked in, patient appeared to have resting tremor of left arm and she was volitionally shaking her legs as if she was nervous. She states that she has a shuffling gait. She denied any seizures, stroke-like symptoms, dysphagia, diplopia, falls, or loss of consciousness. She has urinary urgency related to her urinary tract infection. Patient follows with psychiatry for her bipolar disorder. Patient states that her fluphenazine was decreased to 5 mg by mouth twice a day and it used to be three times a day in the past. PAST MEDICAL HISTORY: Bipolar disorder, migraines, chronic neck and back pain status post C5-7 cervical fusion, hypertension, type 2 diabetes, coronary artery disease status post two stents. SOCIAL HISTORY: She denies smoking, alcohol, or illicit drugs currently. FAMILY HISTORY: Unremarkable and noncontributory. REVIEW OF SYSTEMS: All systems were reviewed and found to be noncontributory except as mentioned in history of present illness. HOME MEDICATIONS: - Bisoprolol 5 mg by mouth daily - Depakote 500 mg plus 1000 mg by mouth daily - Enalapril 2.5 mg by mouth daily - Fluphenazine 5 mg by mouth twice a day - Gabapentin 300 mg by mouth three times a day - Lisinopril 40 mg by mouth daily - Metformin 1000 mg by mouth twice a day - Topiramate 25 mg by mouth twice a day - Klonopin 0.5 mg by mouth daily as needed - Benadryl 25 mg by mouth nightly as needed for insomnia ALLERGIES: METOPROLOL, TETANUS VACCINE. PHYSICAL EXAMINATION: Temperature 98.1, pulse 51, respiratory rate 16, blood pressure 150/77. Heart: Regular rate and rhythm. Lungs: Clear to auscultation. Abdomen: Soft, nontender, nondistended. No pedal edema. No musculoskeletal abnormalities. No rash. No signs of meningeal irritation. Patient has resting tremor of left arm. She was nervously shaking her legs, but she was able to stop on her own and admitted that she was doing that volitionally. Patient is awake, alert, oriented to place, person, and time. Normal speech, comprehension, and repetition. Extraocular muscles are intact. No facial weakness. Tongue and uvula are midline. 5/5 strength in all of her extremities. She has masked-like face. Her gait is shuffling with decreased arm swing. Deep tendon reflexes are 1+ in arms and knees and ankles. She also has a couple of beats of ill-sustained clonus in right more than left foot. Normal sensation in arms. She has decreased cold, pinprick, and vibration sensation in her feet. DIAGNOSTIC STUDIES: MRI scan of brain showed mild small vessel ischemic disease of brain. MRI cervical spine showed post-surgical changes between C5-6, C6-7 levels with spondylosis without spinal stenosis. CT scan of head was reportedly unremarkable. CT scan of cervical spine shows stable post-surgical changes in hardware. CT scan of thoracic spine was normal. CT scan of lumbosacral spine showed multilevel degenerative disc disease and foraminal stenosis bilaterally with mild spinal canal stenosis. ASSESSMENT: 1. 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 2. Multifactorial gait difficulty. 3. Multilevel lumbosacral disc disease and foraminal stenosis and diabetic peripheral neuropathy. 4. Occipital neuralgia. 5. Chronic tension headaches, intractable. 6. Chronic migraines, without aura, intractable, with migrainosus. 7. Chronic neck and back pain and patient is status post cervical fusion many years ago and currently does not have any acute disease. PLAN: 1. Check vitamin B12, vitamin B1, serum copper, etc. 2. Follow with orthopaedics and she states that she will see Dr. Shelton for consultation for lumbosacral laminectomy. 3. Trial of benztropine 0.5 mg by mouth twice a day and gradually increase it as tolerated. 4. Increase Topamax to 50 mg by mouth twice a day. 5. Amitriptyline, nortriptyline, or Effexor will be contraindicated due to her bipolar disorder. 6. We cannot add propranolol as patient is already taking bisoprolol and continues to have headaches. 7. Botox, Emgality, occipital nerve blocks as contingency plan on outpatient basis. 8. Patient should discuss with her psychiatrist most appropriate treatment plan for her bipolar disorder as fluphenazine is much more likely to cause neuroleptic-induced Parkinsonism. They should consider atypical antipsychotic for management of her bipolar disorder if feasible. 9. Follow with our office in 2 weeks after hospital discharge. She should continue using a walker. MARQUESD
--- NOTE | 2020-05-25 07:18 | ECGEPIP ---
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
== END 2020-05-13 15:10 | disposition home health service (06) | DRG 103 ==
LOC: M ED 15:11 → EDBD 15:11 → M ED INP 22:23 → ENRESERV 22:47 → M MSPAV 05-11 00:24
PROVIDERS: ADMIT Internal Medicine; ATTEND Internal Medicine
DX: G43.101 Migraine with aura, not intractable, with status migrainosus (principal); F31.81 Bipolar II disorder; I25.10 Atherosclerotic heart disease of native coronary artery without angina pectoris; E11.9 Type 2 diabetes mellitus without complications; I10 Essential (primary) hypertension; Z95.2 Presence of prosthetic heart valve; G20 Parkinson's disease; I44.0 Atrioventricular block, first degree; E66.9 Obesity, unspecified; Z68.31 Body mass index [BMI] 31.0-31.9, adult; M54.2 Cervicalgia; M51.37 Other intervertebral disc degeneration, lumbosacral region; M54.81 Occipital neuralgia

== ENCOUNTER 2020-06-03 17:27 | Emergency (ER) | payer MEDICARE, MEDICAID ==
[~2020-06-03] VITALS: Ht 165.1 cm; Wt 89.5 kg
[~2020-06-03 17:27] MED LIST changes: +BENZ0.5T23 PO; +BISO5TAB14 PO; +DICL1GEL TOP; +DICL1PAT6 TOP; +DIVA500T9 PO; +DOCU100C16 PO; +ENAL1TAB46 PO; +TOPI50TA9 PO
[2020-06-03 18:33] VITALS: BP 121/60
== END 2020-06-03 18:41 | disposition home or self-care (01) ==
LOC: EDBD 17:27 → M ED 17:27
DX: R51 Headache (principal); M25.552 Pain in left hip; I25.10 Atherosclerotic heart disease of native coronary artery without angina pectoris; E11.9 Type 2 diabetes mellitus without complications; F31.9 Bipolar disorder, unspecified; K21.9 Gastro-esophageal reflux disease without esophagitis; Z79.82 Long term (current) use of aspirin; Z79.84 Long term (current) use of oral hypoglycemic drugs; Z79.899 Other long term (current) drug therapy; Z88.7 Allergy status to serum and vaccine; Z88.8 Allergy status to other drugs, medicaments and biological substances

== ENCOUNTER 2020-06-26 17:11 | Inpatient (IN) | payer MEDICARE, MEDICAID ==
[~2020-06-26] VITALS: Ht 165.1 cm; Wt 88.7 kg
[2020-06-26] MEDS ORDERED: ACET-897 PO ×2 (17:29→21:35)
[2020-06-26] MEDS ORDERED: CLON0.5T2 (17:29)
[2020-06-26] MEDS ORDERED: NS 1,000 ML IV ONE (20:15)
[2020-06-26] MEDS ORDERED: MORPHINE 4 MG/ML 1ML VIAL/SYRINGE (J2270) IV ONE (20:15)
[2020-06-26] MEDS ORDERED: TOPIRAMATE (TopAMAX) 25 MG TAB PO ONE (20:15)
--- NOTE | 2020-06-26 20:50 | REPVR ---
PROCEDURE INFORMATION: Exam: CT Head Without Contrast Exam date and time: 06/26/2020 8:14 PM Age: 60 years old Clinical indication: Pain; Headache; Additional info: Intractable headache TECHNIQUE: Imaging protocol: Computed tomography of the head without contrast. Radiation optimization: All CT scans at this facility use at least one of these dose optimization techniques: automated exposure control; mA and/or kV adjustment per patient size (includes targeted exams where dose is matched to clinical indication); or iterative reconstruction. COMPARISON: CT Head without contrast 05/10/2020 5:52 PM FINDINGS: Brain: No acute intracranial hemorrhage is visualized. The white-kay differentiation is preserved demonstrating no acute territorial type infarct. There are small periventricular foci of white matter hypodensity, likely representing small vessel ischemic disease in a patient this age. The acuity of the white matter disease is indeterminate. There is no midline shift. Artifact limits evaluation of the jae. Cerebral ventricles: There is stable prominence of the ventricles and sulci, compatible with atrophy. Bones/joints: The calvarium demonstrates no evidence for a depressed fracture. Paranasal sinuses: Visualized sinuses are unremarkable. No fluid levels. Mastoid air cells: Mild effusions again visualized within left mastoid air cells. Vasculature: Intracranial atherosclerosis visualized. Soft tissues: Unremarkable. IMPRESSION: 1. No acute intracranial hemorrhage or acute territorial type infarct. 2. There are small periventricular foci of white matter hypodensity, likely representing small vessel ischemic disease in a patient this age. 3. Stable atrophy. 4. Mild effusions again visualized within left mastoid air cells. Electronically signed by: Freedom Viramontes On 06/26/2020 20:49:32 PM
[2020-06-26 20:56] LABS: BASO # 0.1 10^3/uL (0.0-0.2); BASO % 0.5 % (0.0-1.0); EOS # 0.2 10^3/uL (0.0-0.5); EOS % 1.8 % (0.0-3.0); HEMATOCRIT 41.1 % (36.0-47.0); HEMOGLOBIN 13.1 g/dl (12.0-15.5); LYMPH # 4.4 10^3/uL (1.5-5.0); LYMPH % 40.6 % (24.0-44.0); MEAN CORPUSCULAR HEMOGLOBIN 29.4 pg (27.0-33.0); MEAN CORPUSCULAR HGB CONC 31.9 g/dl (32.0-36.5); MEAN CORPUSCULAR VOLUME 92.2 fl (80.0-96.0); MONO # 0.7 10^3/uL (0.0-0.8); MONO % 6.3 % (0.0-5.0); NEUTROPHILS # 5.4 10^3/uL (1.5-8.5); NEUTROPHILS % 50.3 % (36.0-66.0); PLATELET COUNT, AUTOMATED 235 10^3/uL (150-450); RED BLOOD COUNT 4.46 10^6/uL (4.00-5.40); WHITE BLOOD COUNT 10.8 10^3/uL (4.0-10.0)
[2020-06-26 21:20] LABS: BLOOD UREA NITROGEN 17 MG/DL (7-18); CALCIUM LEVEL 9.7 MG/DL (8.5-10.1); CARBON DIOXIDE LEVEL 26 MEQ/L (21-32); CHLORIDE LEVEL 107 MEQ/L (98-107); CREATININE FOR GFR 0.92 MG/DL (0.55-1.30); GLOMERULAR FILTRATION RATE > 60.0 (>51); GLUCOSE, FASTING 88 MG/DL (70-100); POTASSIUM SERUM 4.5 MEQ/L (3.5-5.1); SODIUM LEVEL 139 MEQ/L (136-145)
[2020-06-26 21:34] LABS: ERYTHROCYTE SEDIMENTATION RATE 11 mm/hr (0-30)
[2020-06-26] MEDS ORDERED: CLON0.5T2 PO (21:35)
[2020-06-26] MEDS ORDERED: DICL1GEL3 TOP (21:35)
[2020-06-26] MEDS ORDERED: BENZ2TAB5 PO (21:35)
[2020-06-27] MEDS ORDERED: diphenhydrAMINE 25MG CAP PO PRN (00:15)
--- NOTE | 2020-06-27 00:27 | HPEPDOC ---
General Date of Admission Jun 27, 2020 at 00:08 Date of Service: Jun 27, 2020 Chief Complaint The patient is a 60-year-old female admitted with a reason for visit of Intractable Headache. Source: Patient Exam Limitations: No limitations Timing/Duration: Day(s) Severity: Moderate History of Present Illness Patient is 60 years old female with past history of bipolar disorder, migraines, hypertension, type 2 diabetes, coronary artery diseases with stents placement presented to the hospital with headache. Patient saw a neurologist Dr White in his office today and he recommended to admit patient for pain management. Patient stated that she has been having severe headache 9 out of 10 for past 2 days. Of note patient has been having migraine for years. Patient denied fever, chills, chest pain, palpitations, nausea, vomiting, diarrhea or dysuria Home Medications Scheduled Benztropine Mesylate (Benztropine Mesylate) 2 Mg Tablet, 1 MG PO BID, (Reported) Divalproex Sodium (Divalproex Sodium ER) 500 Mg Tab.er.24h, 500 MG PO DAILY, (Reported) Lisinopril (Lisinopril) 40 Mg Tablet, 40 MG PO DAILY, (Reported) Metformin HCl (Metformin HCl) 1,000 Mg Tab, 1,000 MG PO DAILY, (Reported) Scheduled PRN Acetaminophen (Tylenol Extra Strength) 500 Mg Tablet, 1,000 MG PO Q6H PRN for HEADACHE OR PAIN, (Reported) Clonazepam (Clonazepam) 0.5 Mg Tablet, 0.5 MG PO TID PRN for ANXIETY, (Reported) Diclofenac Sodium (Diclofenac Sodium) 1% 100GM Gel..gram., 1 DOSE TOP BID PRN for PAIN, (Reported) USES ON BACK OF NECK OR LEFT HIP NEEDED Diphenhydramine HCl (Diphenhydramine HCl) 25 Mg Capsule, 25 MG PO QHS PRN for INSOMNIA, (Reported) Allergies Coded Allergies: Tetanus Vaccines and Toxoid (Verified Allergy, Unknown, 06/26/20) metoprolol (Verified Adverse Reaction, Unknown, SECOND DEGREE HEART BLOCK, 06/26/20) Past Medical History Medical History Migraines Chronic neck and back pain / C5-7 fusion Chronic HTN NIDM2 CAD w placement of 2 stents Bipolar II Disorder MDD Surgical History 2 cardiac stents placement Family History I personally reviewed family history and found not pertinent Social History * Smoker: current smoker Alcohol: Denies Drugs: denies A-FIB/CHADSVASC A-FIB History Current/History of A-Fib/PAF?: No Current PO Anticoag Therapy: No Review of Systems Constitutional: Denies: Chills Eyes: Denies: Pain, Vision change ENT: Reports: Head Aches Skin: Denies: Rash Pulmonary: Denies: Dyspnea Cardiovascular: Denies: Chest Pain, Palpitations Gastrointestinal: Denies: Nausea, Vomiting Genitourinary: Denies: Dysuria Hematologic: Denies: Bruising Endocrine: Denies: Polydipsia, Polyphagia Musculoskeletal: Denies: Neck Pain Neurological: Denies: Weakness Psych: Denies: Thoughts of Self Harm, Anger Physical Examination General Exam: Positive: Alert, Cooperative Eye Exam: Positive: PERRLA ENT Exam: Positive: Atraumatic Neck Exam: Positive: Supple; Negative: JVD Chest Exam: Positive: Clear to auscultation Heart Exam: Positive: Rate Normal Telemetry: Positive: No significant arrhythmia Abdomen Exam: Positive: Normal bowel sounds Extremity Exam: Negative: Clubbing, Cyanosis Skin Exam: Positive: Nl turgor and temperature Neuro Exam: Positive: Normal Tone, Cranial Nerves 3-12 NL Psych Exam: Positive: Oriented x 3 Vital Signs Vital Signs Date Time Temp Pulse Resp B/P (MAP) Pulse Ox O2 Delivery O2 Flow Rate FiO2 06/26/20 22:00 16 06/26/20 21:06 97.3 65 158/75 (102) 98 Room Air Laboratory Data Labs 24H Laboratory Tests 2 06/26/20 20:45: Anion Gap 6L, Glomerular Filtration Rate > 60.0, Calcium Level 9.7, C-Reactive Protein, Quantitative 0.30 06/26/20 20:46: Immature Granulocyte % (Auto) 0.5, Neutrophils (%) (Auto) 50.3, Lymphocytes (%) (Auto) 40.6, Monocytes (%) (Auto) 6.3H, Eosinophils (%) (Auto) 1.8, Basophils (%) (Auto) 0.5, Neutrophils # (Auto) 5.4, Lymphocytes # (Auto) 4.4, Monocytes # (Auto) 0.7, Eosinophils # (Auto) 0.2, Basophils # (Auto) 0.1, Nucleated Red Blood Cells % (auto) 0.0, Erythrocyte Sedimentation Rate 11 CBC/BMP Laboratory Tests 06/26/20 20:45 10/15/20 20:46 Assessment/Plan Patient is 60 years old female with past history of bipolar disorder, migraines, hypertension, type 2 diabetes, coronary artery diseases with stents placement presented to the hospital with headache. Patient saw a neurologist Dr White in his office today and he recommended to admit patient for pain management. Patient stated that she has been having severe headache 9 out of 10 for past 2 days. Of note patient has been having migraine for years. Patient denied fever, chills, chest pain, palpitations, nausea, vomiting, diarrhea or dysuria Problems (1) Intractable headache Status: Acute Problem Text: Appreciate/agree with neurologist consult CT head negative for acute findings Dr. White recommended Topamax 50 twice a day, Depakote 500 twice a day, stop gabapentin (2) Coronary artery disease Status: Chronic Problem Text: Patient was not on the statin, beta blockers or aspirin Patient does not remember when was stents placed I started statin and aspirin Patient has allergic reaction on beta craig (3) Diabetes mellitus Status: Chronic Problem Text: Diabetes diet Continue metformin Plan / VTE VTE Prophylaxis Ordered?: Yes LA SOLOMON DO Jun 27, 2020 00:27
[2020-06-27 01:50] VITALS: BP 138/64
[2020-06-27 04:00] VITALS: BP 131/62
[2020-06-27 08:00] VITALS: BP 138/80
[2020-06-27] MEDS ORDERED: metFORMIN (GLUCOPHAGE) 1000 MG TABLET PO SCH (08:00)
[2020-06-27] MEDS: DIVALPROEX 500 MG TAB PO SCH ×2 (08:00→21:09)
[2020-06-27] MEDS: lisinopriL 40 MG TAB PO SCH (08:00)
[2020-06-27] MEDS: ATORVASTATIN 20 MG TAB PO SCH (08:00)
[2020-06-27] MEDS: ASPIRIN 81 MG CHEW TABLET PO SCH (08:00)
[2020-06-27] MEDS: BENZTROPINE 1 MG TAB PO SCH ×2 (08:01→21:09)
[2020-06-27] MEDS: HEPARIN SOD (PORCINE) 5000UNITS/ML 1ML VIAL/SYRINGE SC SCH ×4 (08:01→21:10)
[2020-06-27] MEDS ORDERED: TOPIRAMATE (TopAMAX) 25 MG TAB PO SCH (09:00)
[2020-06-27] MEDS ORDERED: METOPROLOL TART 50 MG TAB PO SCH (09:00)
[2020-06-27] MEDS: ACETAMINOPHEN TAB 650MG DOSE (2X325MG) PO PRN (09:54)
[2020-06-27] MEDS: clonazePAM 0.5 MG TAB PO PRN (10:04)
[2020-06-27] MEDS ORDERED: FIORICET TAB PO ONE (11:15)
[2020-06-27] MEDS ORDERED: TOPIRAMATE (TopAMAX) 25 MG TAB PO ONE (12:45)
[2020-06-27 16:00] VITALS: BP 112/56
[2020-06-27] MEDS: HumaLOG INSULIN (NovoLOG) PER UNIT SC SCH ×2 (17:30→21:00)
[2020-06-27] MEDS ORDERED: GLUCAGON INJ 1MG VIAL SC PRN (18:45)
[2020-06-27] MEDS ORDERED: GLUCOSE 4GM CHEW TABLET PO PRN (18:45)
[2020-06-27] MEDS ORDERED: DEXTROSE 50% 50 ML SYRINGE IV PRN (18:45)
[2020-06-27 20:00] VITALS: BP 139/80
--- NOTE | 2020-06-27 20:01 | MHIPNPDOC ---
[facility] Progress Note Progress Note DATE OF SERVICE: 06/27/20 HISTORY: The patient is a 60 year old female who was admitted to the Hospital for excruciating headaches. According to previous records, the patient has been admitted more than 20 times to the Inpatient Mental Health Unit. According to previous notes: "Patient is 60 years old female with past history of bipolar disorder, migraines, hypertension, type 2 diabetes, coronary artery diseases with stents placement presented to the hospital with headache. Patient saw a neurologist Dr White in his office today and he recommended to admit patient for pain management. Patient stated that she has been having severe headache 9 out of 10 for past 2 days. Of note patient has been having migraine for years. P atient denied fever, chills, chest pain, palpitations, nausea, vomiting, diarrhea or dysuria" VITAL SIGNS: See below. NEW TEST RESULTS: See below CURRENT MEDICATIONS: See below. MENTAL STATUS EXAMINATION: Patient is a The patient was asleep when I came to evaluate her. I had to wake her up. She was wearing hospital clothes, laying in bed, with no lights on, not watching TV. Speech: Is slow, monotone, needs to be prompted. Language skills are intact. Thought processes including: linear and coherent. Thought content: negative for suicidal ideation, negative for homicidal ideation, negative for thought delusions, positive for depressive thoughts. Abstract reasoning, and computation: fair. Description of associations: intact. Description of abnormal or psychotic thoughts: denies thought delusions, denies TAV hallucinations, she is not responding to internal stimuli, she denies SI/HI. Judgment: fair. Insight: fair. Orientation: x 3. Recent and remote memory: good. Attention span and concentration: she is not easily distracted. Language: no abnormalities observed, adequate Fund of knowledge: not assessed at this time, the patient refused to answer more questions because "I have a very powerful headache, if you don't mind, I don't want to talk anymore" Mood: sad. Affect: congruent with mood, constricted. DIAGNOSES: 1. bipolar II disorder ( by history) 2. Somatic Symptom disorder/Pain disorder - trigeminal neuralgia ( by history) 3. dependent personality disorder ( by history) ASSESSMENT: The patient was asleep when I came to evaluate her. She was cooperative but she refused to continue the conversation because she said she was having a "very powerful headache". She was able to follow the conversation, was able to focus, she was oriented but she said she was depressed. She says she knows the depression is secondary to the pain she feels in her neck, head and forehead. She takes Depakote 500 mgs PO BID, Klonopin 0.5 mgs PO TID, Benztropine 1 mg PO BID, Topamax 100 mgs PO BID. She doesn't report suicidal ideation, she denies any thoughts of self harm, denies thoughts of harming other people, denies thought delusions, denies TAV hallucinations. She is not in danger to self or others at this time. She has a h/o bipolar disorder but she was able to tolerate Amitriptyline 50 mgs PO QHS last year when she was at [facility], she didn't develop carlos after she took it for several days. MANAGEMENT PLAN: She could benefit from Amitriptyline, 50 mgs PO QHS. I would recommend discussing this with Dr. White. She had a good response to this medication last year on one of her admissions to [facility]. TIME SPENT: 20 minutes. Vital Signs Vital Signs Date Time Temp Pulse Resp B/P (MAP) Pulse Ox O2 Delivery O2 Flow Rate FiO2 06/27/20 16:00 97.5 75 17 112/56 (74) 95 Room Air Laboratory Data 24H Labs Laboratory Tests 2 06/26/20 20:45: Anion Gap 6L, Glomerular Filtration Rate > 60.0, Calcium Level 9.7, C-Reactive Protein, Quantitative 0.30 06/26/20 20:46: Immature Granulocyte % (Auto) 0.5, Neutrophils (%) (Auto) 50.3, Lymphocytes (%) (Auto) 40.6, Monocytes (%) (Auto) 6.3H, Eosinophils (%) (Auto) 1.8, Basophils (%) (Auto) 0.5, Neutrophils # (Auto) 5.4, Lymphocytes # (Auto) 4.4, Monocytes # (Auto) 0.7, Eosinophils # (Auto) 0.2, Basophils # (Auto) 0.1, Nucleated Red Blood Cells % (auto) 0.0, Erythrocyte Sedimentation Rate 11 06/27/20 08:06: Bedside Glucose (Misc Panel) 115H 06/27/20 12:22: C-Reactive Protein, Quantitative < 0.30, Erythrocyte Sedimentation Rate 11 06/27/20 17:31: Bedside Glucose (Misc Panel) 133H CBC/BMP Laboratory Tests 06/26/20 20:45 06/26/20 20:46 Current Medications Current Medications Medications (Trade) Dose Ordered Sig/Rao Route PRN Reason Start Time Stop Time Status Last Admin Dose Admin Acetaminophen (Tylenol Tab) 650 mg Q4H PRN PO PAIN OR FEVER 06/27/20 00:15 06/27/20 09:54 Aspirin (Aspirin Chewable) 81 mg DAILY PO 06/27/20 09:00 06/27/20 08:00 Atorvastatin Calcium (Lipitor) 40 mg DAILY PO 06/27/20 09:00 06/27/20 08:00 Benztropine Mesylate (Cogentin) 1 mg BID PO 06/27/20 09:00 06/27/20 08:01 Clonazepam (KlonoPIN) 0.5 mg TID PRN PO ANXIETY 06/27/20 00:15 06/27/20 10:04 Dextrose (Dextrose 50%) 25 ml ASDIRECTED PRN IV SEE LABEL COMMENTS 06/27/20 18:45 Diphenhydramine HCl (Benadryl) 25 mg QHS PRN PO INSOMNIA 06/27/20 00:15 Divalproex Sodium (Depakote) 500 mg BID PO 06/27/20 09:00 06/27/20 08:00 Glucagon (Glucagon) 1 mg ASDIRECTED PRN SC SEE LABEL COMMENTS 06/27/20 18:45 Glucose (Glucose) 16 GM ASDIRECTED PRN PO SEE LABEL COMMENTS 06/27/20 18:45 Heparin Sodium (Porcine) (Heparin) 5,000 units Q12H SC 06/27/20 09:00 Home Med (Med Rec Complete!) ASDIRECTED XX 06/26/20 21:45 06/26/20 21:38 DC Insulin Human Lispro (HumaLOG INSULIN) See Protocol Table AC SC 06/27/20 17:30 Insulin Human Lispro (HumaLOG INSULIN) See Protocol Table QHS SC 06/27/20 21:00 Lisinopril (Prinivil) 40 mg DAILY PO 06/27/20 09:00 06/27/20 08:00 Metformin HCl (Glucophage) 1,000 mg DAILY@0800 PO 06/27/20 08:00 06/27/20 18:35 DC Metoprolol Tartrate (Lopressor) 50 mg DAILY PO 06/27/20 09:00 06/27/20 01:17 DC Topiramate (TopAMAX) 50 mg BID PO 06/27/20 09:00 06/27/20 11:38 DC 06/27/20 09:54 Topiramate (TopAMAX) 100 mg BID PO 06/27/20 21:00 Allergies Coded Allergies: Tetanus Vaccines and Toxoid (Verified Allergy, Unknown, 06/26/20) metoprolol (Verified Adverse Reaction, Unknown, SECOND DEGREE HEART BLOCK, 06/26/20) MYKE VALENCIA MD Jun 27, 2020 19:33
--- NOTE | 2020-06-27 21:04 | IPNPDOC ---
Date Seen The patient was seen on 06/27/20. Progress Note SUBJECTIVE: Seen and examined this morning at bedside rounds. Complaining of severe 910. Bilateral headache, worse on the right. Reports phonophobia and photophobia. Denies blurred vision. Chest pain, seizures of breath, fever, chills, nausea, vomiting or diarrhea. OBJECTIVE PHYSICAL EXAMINATION: VITAL SIGNS: please see below General: NAD, comfortable HEENT: PERRLA, EOMI, sclerae clear Neck: supple, normal ROM, no JVD Respiratory: lungs CTAB, no wheeze, no rales, no crackles CVS: RRR, normal S1, S2, no murmurs Abdo: soft, no masses, no hepatosplenomegaly, BS+, no rebound tenderness Extremities: no edema, pulses 2+ MSK: no joint deformities, normal ROM Neuro: no focal neuro deficits, moving all 4 extremities, CN2-12 intact. Strength 5/5 in all 4 extremities. No nystagmus. Psych: calm, cooperative, AAO x 3 LABORATORY DATA, IMAGING STUDIES, MICROBIOLOGY: Please see below. DVT prophylaxis ordered?: Y ASSESSMENT AND PLAN: Patient is 60 years old female with past history of bipolar disorder, migraines, hypertension, type 2 diabetes, coronary artery diseases with stents placement presented to the hospital with headache. Patient saw a neurologist Dr White in his office, and was sent to the ED for pain control severe headache. Patient currently receiving Topamax 100 mg by mouth twice a day as well as Depakote 500 mg twice a day. Flat affect, labile mood, will obtain psychiatry evaluation. She is known to the inpatient behavioral health unit in the past. PROBLEMS: Intractable headache: chronic issue. CT head wnl. Discussed with Dr. White. Increased dose of topiramate to 100 mg po bid. depakote 500 mg bid. fioricet one time. Mild improvement. CAD: asa/statin. allergic to BB. DM2: cc diet. hold metformin. 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 c/w benztropine HTN: lisinopril 40 mg daily Bipolar disorder II: patient has been admitted to [facility] more than 20 times. Psychiatry consult. Possible psychiatric component to headaches. Appreciate Dr. Johns consult. Recommend amitriptyline 50 mg po QHS. Discussed with Dr. White, he agrees (was concerned about worsening of bipolar symptoms). Obesity: BMI 35.0. complicating care. DISPOSITION: Likely DC home, pending medical clearance. VS, I&O, 24H, [place] Vital Signs/I&O Vital Signs Date Time Temp Pulse Resp B/P (MAP) Pulse Ox O2 Delivery O2 Flow Rate FiO2 06/27/20 20:00 96.4 83 18 139/80 (99) 96 Room Air I&O- Last 24 Hours up to 6 AM 06/27/20 06:00 Intake Total 1000 ml Output Total 800 ml Balance 200 ml Laboratory Data 24H LABS Laboratory Tests 2 06/26/20 20:45: Anion Gap 6L, Glomerular Filtration Rate > 60.0, Calcium Level 9.7, C-Reactive Protein, Quantitative 0.30 06/26/20 20:46: Immature Granulocyte % (Auto) 0.5, Neutrophils (%) (Auto) 50.3, Lymphocytes (%) (Auto) 40.6, Monocytes (%) (Auto) 6.3H, Eosinophils (%) (Auto) 1.8, Basophils (%) (Auto) 0.5, Neutrophils # (Auto) 5.4, Lymphocytes # (Auto) 4.4, Monocytes # (Auto) 0.7, Eosinophils # (Auto) 0.2, Basophils # (Auto) 0.1, Nucleated Red Blo od Cells % (auto) 0.0, Erythrocyte Sedimentation Rate 11 06/27/20 08:06: Bedside Glucose (Misc Panel) 115H 06/27/20 12:22: C-Reactive Protein, Quantitative < 0.30, Erythrocyte Sedimentation Rate 11 06/27/20 17:31: Bedside Glucose (Misc Panel) 133H CBC/BMP Laboratory Tests 06/26/20 20:45 06/26/20 20:46 HARRIET WRIGHT MD Jun 27, 2020 20:47
[2020-06-27] MEDS: TOPIRAMATE (TopAMAX) 100 MG TAB PO SCH (21:09)
[2020-06-27] MEDS: AMITRIPTYLINE 50 MG TAB PO SCH (22:26)
[2020-06-27 23:30] VITALS: BP 133/88
[2020-06-28 06:00] VITALS: BP 137/86
[2020-06-28 07:31] LABS: MEAN CORPUSCULAR HEMOGLOBIN 29.8 pg (27.0-33.0); MEAN CORPUSCULAR HGB CONC 32.6 g/dl (32.0-36.5); MEAN CORPUSCULAR VOLUME 91.5 fl (80.0-96.0); PLATELET COUNT, AUTOMATED 220 10^3/uL (150-450)
[2020-06-28 07:53] LABS: ALBUMIN 3.3 GM/DL (3.2-5.2); ALT/SGPT 21 U/L (12-78); BILIRUBIN,TOTAL 0.3 MG/DL (0.2-1.0); BLOOD UREA NITROGEN 22 MG/DL (7-18); CALCIUM LEVEL 9.1 MG/DL (8.5-10.1); CARBON DIOXIDE LEVEL 23 MEQ/L (21-32); CHLORIDE LEVEL 109 MEQ/L (98-107); CREATININE FOR GFR 0.96 MG/DL (0.55-1.30); GLOMERULAR FILTRATION RATE > 60.0 (>51); GLUCOSE, FASTING 105 MG/DL (70-100); MAGNESIUM LEVEL 2.1 MG/DL (1.8-2.4); SODIUM LEVEL 141 MEQ/L (136-145); TOTAL PROTEIN 6.7 GM/DL (6.4-8.2)
[2020-06-28] MEDS: ASPIRIN 81 MG CHEW TABLET PO SCH (09:11)
[2020-06-28] MEDS: ATORVASTATIN 20 MG TAB PO SCH (09:11)
[2020-06-28] MEDS: DIVALPROEX 500 MG TAB PO SCH ×2 (09:12→22:32)
[2020-06-28] MEDS: BENZTROPINE 1 MG TAB PO SCH ×2 (09:12→22:32)
[2020-06-28] MEDS: lisinopriL 40 MG TAB PO SCH (09:12)
[2020-06-28] MEDS: TOPIRAMATE (TopAMAX) 100 MG TAB PO SCH ×2 (09:12→22:32)
[2020-06-28] MEDS: HEPARIN SOD (PORCINE) 5000UNITS/ML 1ML VIAL/SYRINGE SC SCH ×2 (09:13→22:34)
[2020-06-28] MEDS: HumaLOG INSULIN (NovoLOG) PER UNIT SC SCH ×4 (09:13→20:00)
[2020-06-28] MEDS: ACETAMINOPHEN TAB 650MG DOSE (2X325MG) PO PRN (09:28)
[2020-06-28] MEDS: clonazePAM 0.5 MG TAB PO PRN (12:46)
[2020-06-28 14:00] VITALS: BP 137/73
--- NOTE | 2020-06-28 16:36 | REP ---
INDICATION: L leg swelling, pain COMPARISON: None. TECHNIQUE: Jara scale and color Doppler evaluation using linear high frequency transducer. FINDINGS: Ultrasound examination of the left lower extremity deep venous structures from the common femoral vein to the popliteal vein demonstrates normal compressibility flow and wave patterns in response to respiration and augmentation. There is no evidence for deep venous thrombosis. IMPRESSION: No evidence for deep venous thrombosis. <Electronically signed by Yosef Aguilar > 06/28/20 [id number]
--- NOTE | 2020-06-28 20:07 | IPNPDOC ---
Date Seen The patient was seen on 06/28/20. Progress Note SUBJECTIVE: Seen and examined this morning at bedside rounds. Complaining of severe 910. Bilateral headache, worse on the right. Reports phonophobia and photophobia. Denies blurred vision. Chest pain, seizures of breath, fever, chills, nausea, vomiting or diarrhea. OBJECTIVE PHYSICAL EXAMINATION: VITAL SIGNS: please see below General: NAD, comfortable HEENT: PERRLA, EOMI, sclerae clear Neck: supple, normal ROM, no JVD Respiratory: lungs CTAB, no wheeze, no rales, no crackles CVS: RRR, normal S1, S2, no murmurs Abdo: soft, no masses, no hepatosplenomegaly, BS+, no rebound tenderness Extremities: no edema, pulses 2+, left leg mildly swollen, mildly erythematous. MSK: no joint deformities, normal ROM Neuro: no focal neuro deficits, moving all 4 extremities, CN2-12 intact. Strength 5/5 in all 4 extremities. No nystagmus. Psych: calm, cooperative, AAO x 3 LABORATORY DATA, IMAGING STUDIES, MICROBIOLOGY: Please see below. DVT prophylaxis ordered?: Y ASSESSMENT AND PLAN: Patient is 60 years old female with past history of bipolar disorder, migraines, hypertension, type 2 diabetes, coronary artery diseases with stents placement presented to the hospital with headache. Patient saw a neurologist Dr White in his office, and was sent to the ED for pain control severe headache. Patient currently receiving Topamax 100 mg by mouth twice a day as well as Depakote 500 mg twice a day. Flat affect, labile mood, will obtain psychiatry evaluation. She is known to the inpatient behavioral health unit in the past. PROBLEMS: Intractable headache: chronic issue. CT head wnl. Discussed with Dr. White. Increased dose of topiramate to 100 mg po bid. depakote 500 mg bid. fioricet one time. Reports severe headache extending down to her arms and legs. Chronic neck/back pain: follows with ortho. Suspect component of fibromyalgia, discussed with Dr. White. Ongoing physical therapyfor stair navigation. Left leg swelling: Obtained venous duplex left leg. Negative for DVT. Likely lymphedema. CAD: asa/statin. allergic to BB. DM2: cc diet. hold metformin. 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 c/w benztropine HTN: lisinopril 40 mg daily Bipolar disorder II: patient has been admitted to [facility] more than 20 times. Psychiatry consult. Possible psychiatric component to headaches. Appreciate Dr. Johns consult. Recommend amitriptyline 50 mg po QHS. Discussed with Dr. White, he agrees (was concerned about worsening of bipolar symptoms). Obesity: BMI 35.0. complicating care. DISPOSITION: Likely DC home, pending medical clearance. VS, I&O, 24H, [place] Vital Signs/I&O Vital Signs Date Time Temp Pulse Resp B/P (MAP) Pulse Ox O2 Delivery O2 Flow Rate FiO2 06/28/20 14:00 97.7 87 20 137/73 (94) 93 Room Air I&O- Last 24 Hours up to 6 AM 06/28/20 06:00 Intake Total 610 ml Output Total 1400 ml Balance -790 ml Laboratory Data 24H LABS Laboratory Tests 2 06/27/20 20:59: Bedside Glucose (Misc Panel) 105 06/28/20 06:44: Nucleated Red Blood Cells % (auto) 0.0, Anion Gap 9, Glomerular Filtration Rate > 60.0, Calcium Level 9.1, Magnesium Level 2.1, Total Bilirubin 0.3, Aspartate A claude Transf (AST/SGOT) 13, Alanine Aminotransferase (ALT/SGPT) 21, Alkaline Phosphatase 76, Total Protein 6.7, Albumin 3.3, Albumin/Globulin Ratio 1.0L 06/28/20 11:44: Bedside Glucose (Misc Panel) 106H 06/28/20 16:29: Bedside Glucose (Misc Panel) 128H 06/28/20 19:53: Bedside Glucose (Misc Panel) 117H CBC/BMP Laboratory Tests 06/28/20 06:44 HARRIET WRIGHT MD Jun 28, 2020 20:07
[2020-06-28 22:00] VITALS: BP 121/75
[2020-06-28] MEDS: AMITRIPTYLINE 50 MG TAB PO SCH (22:32)
[2020-06-29 06:00] VITALS: BP 153/76
[2020-06-29] MEDS: HEPARIN SOD (PORCINE) 5000UNITS/ML 1ML VIAL/SYRINGE SC SCH ×2 (08:46→21:55)
[2020-06-29] MEDS: HumaLOG INSULIN (NovoLOG) PER UNIT SC SCH ×4 (08:47→21:00)
[2020-06-29] MEDS: ATORVASTATIN 20 MG TAB PO SCH (08:47)
[2020-06-29] MEDS: ASPIRIN 81 MG CHEW TABLET PO SCH (08:47)
[2020-06-29] MEDS: lisinopriL 40 MG TAB PO SCH (08:48)
[2020-06-29] MEDS: TOPIRAMATE (TopAMAX) 100 MG TAB PO SCH ×2 (08:48→21:55)
[2020-06-29] MEDS: DIVALPROEX 500 MG TAB PO SCH ×2 (08:48→21:55)
[2020-06-29] MEDS: BENZTROPINE 1 MG TAB PO SCH ×2 (08:48→21:55)
[2020-06-29] MEDS: ACETAMINOPHEN TAB 650MG DOSE (2X325MG) PO PRN ×2 (08:49→21:57)
[2020-06-29] MEDS: clonazePAM 0.5 MG TAB PO PRN (08:55)
--- NOTE | 2020-06-29 12:41 | IPNPDOC ---
Date Seen The patient was seen on 06/29/20. Progress Note SUBJECTIVE: Seen and examined this morning at bedside rounds. Complaining of severe 910. Bilateral headache, worse on the right. Reports phonophobia and photophobia. Denies blurred vision. Chest pain, seizures of breath, fever, chills, nausea, vomiting or diarrhea. OBJECTIVE PHYSICAL EXAMINATION: VITAL SIGNS: please see below General: NAD, comfortable HEENT: PERRLA, EOMI, sclerae clear Neck: supple, normal ROM, no JVD Respiratory: lungs CTAB, no wheeze, no rales, no crackles CVS: RRR, normal S1, S2, no murmurs Abdo: soft, no masses, no hepatosplenomegaly, BS+, no rebound tenderness Extremities: no edema, pulses 2+, left leg mildly swollen, mildly erythematous. MSK: no joint deformities, normal ROM Neuro: no focal neuro deficits, moving all 4 extremities, CN2-12 intact. Strength 5/5 in all 4 extremities. No nystagmus. Psych: calm, cooperative, AAO x 3 LABORATORY DATA, IMAGING STUDIES, MICROBIOLOGY: Please see below. DVT prophylaxis ordered?: Y ASSESSMENT AND PLAN: Patient is 60 years old female with past history of bipolar disorder, migraines, hypertension, type 2 diabetes, coronary artery diseases with stents placement presented to the hospital with headache. Patient saw a neurologist Dr White in his office, and was sent to the ED for pain control severe headache. Patient currently receiving Topamax 100 mg by mouth twice a day as well as Depakote 500 mg twice a day. Flat affect, labile mood, will obtain psychiatry evaluation. She is known to the inpatient behavioral health unit in the past. PROBLEMS: Intractable headache: chronic issue. CT head wnl. Discussed with Dr. White. Increased dose of topiramate to 100 mg po bid. depakote 500 mg bid. Amitriptilyn 75 mg po QHS. Chronic neck/back pain: follows with ortho. Suspect component of fibromyalgia, discussed with Dr. White. Ongoing physical therapyfor stair navigation. Left leg swelling: Obtained venous duplex left leg. Negative for DVT. Likely lymphedema. CAD: asa/statin. allergic to BB. DM2: cc diet. hold metformin. 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 c/w benztropine HTN: lisinopril 40 mg daily Bipolar disorder II: patient has been admitted to [facility] more than 20 times. Psychiatry consult. Possible psychiatric component to headaches. Appreciate Dr. Johns consult, to start amitriptyline 50 mg qhs, Dr. White agrees. D/w Dr. White, given persistent pain, increase to 75 mg PO qhs. reduce klonopin to 0.5 mg BID prn frequency. Obesity: BMI 35.0. complicating care. DISPOSITION: Per PT notes from June 28, patient not safe to DC home due to decreased mobility and safety. PT to maximize safety with ambulation and stair negotiation. VS, I&O, 24H, Fishbone Vital Signs/I&O Vital Signs Date Time Temp Pulse Resp B/P (MAP) Pulse Ox O2 Delivery O2 Flow Rate FiO2 06/29/20 06:00 97.9 81 18 153/76 (101) 95 Room Air I&O- Last 24 Hours up to 6 AM 06/29/20 06:00 Intake Total 660 ml Output Total 750 ml Balance -90 ml Laboratory Data 24H LABS Laboratory Tests 2 06/28/20 16:29: Bedside Glucose (Misc Panel) 128H 06/28/20 19:53: Bedside Glucose (Misc Panel) 117H 06/29/20 06:09: Bedside Glucose (Misc Panel) 105 06/29/20 11:21: Bedside Glucose (Misc Panel) 112H HARRIET WRIGHT MD Jun 29, 2020 12:41
[2020-06-29] MEDS: VERAPAMIL 40 MG TAB PO SCH (16:00)
[2020-06-29] MEDS ORDERED: clonazePAM 0.5 MG TAB PO PRN (17:00)
[2020-06-29] MEDS: AMITRIPTYLINE 25 MG TAB PO SCH (21:55)
[2020-06-29 22:00] VITALS: BP 121/79
[2020-06-30] MEDS: VERAPAMIL 40 MG TAB PO SCH ×3 (00:47→15:36)
[2020-06-30 06:00] VITALS: BP 133/75
[2020-06-30] MEDS: HumaLOG INSULIN (NovoLOG) PER UNIT SC SCH ×4 (07:36→20:54)
[2020-06-30] MEDS: HEPARIN SOD (PORCINE) 5000UNITS/ML 1ML VIAL/SYRINGE SC SCH ×2 (07:37→20:56)
[2020-06-30] MEDS: TOPIRAMATE (TopAMAX) 100 MG TAB PO SCH ×2 (07:38→20:55)
[2020-06-30] MEDS: lisinopriL 40 MG TAB PO SCH (07:38)
[2020-06-30] MEDS: ATORVASTATIN 20 MG TAB PO SCH (07:38)
[2020-06-30] MEDS: BENZTROPINE 1 MG TAB PO SCH ×2 (07:38→20:55)
[2020-06-30] MEDS: ASPIRIN 81 MG CHEW TABLET PO SCH (07:38)
[2020-06-30] MEDS: DIVALPROEX 500 MG TAB PO SCH ×2 (07:38→20:55)
[2020-06-30 09:14] LABS: BASO % 0.6 % (0.0-1.0); EOS # 0.1 10^3/uL (0.0-0.5); EOS % 1.8 % (0.0-3.0); HEMOGLOBIN 15.1 g/dl (12.0-15.5); LYMPH % 41.7 % (24.0-44.0); MEAN CORPUSCULAR HEMOGLOBIN 29.8 pg (27.0-33.0); MEAN CORPUSCULAR HGB CONC 32.1 g/dl (32.0-36.5); MEAN CORPUSCULAR VOLUME 92.9 fl (80.0-96.0); MONO # 0.6 10^3/uL (0.0-0.8); MONO % 8.2 % (0.0-5.0); NEUTROPHILS # 3.4 10^3/uL (1.5-8.5); NEUTROPHILS % 47.4 % (36.0-66.0); PLATELET COUNT, AUTOMATED 246 10^3/uL (150-450); RED BLOOD COUNT 5.06 10^6/uL (4.00-5.40); WHITE BLOOD COUNT 7.1 10^3/uL (4.0-10.0)
[2020-06-30 09:42] LABS: ALBUMIN 3.5 GM/DL (3.2-5.2); BILIRUBIN,TOTAL 0.4 MG/DL (0.2-1.0); CALCIUM LEVEL 9.9 MG/DL (8.5-10.1); CREATININE FOR GFR 1.2 MG/DL (0.55-1.30); MAGNESIUM LEVEL 2.2 MG/DL (1.8-2.4); POTASSIUM SERUM 4.1 MEQ/L (3.5-5.1); TOTAL PROTEIN 7.5 GM/DL (6.4-8.2)
--- NOTE | 2020-06-30 10:24 | CR ---
REFERRING PHYSICIAN: Fidel Jeter DO REASON FOR CONSULTATION: Severe headaches. HISTORY OF PRESENT ILLNESS: Fernanda Rodriguez is a 60-year-old woman with a history of bipolar disorder, chronic migraines, chronic tension headaches, hypertension, fluphenazine-induced parkinsonism which has improved since her fluphenazine has been tapered off and the patient has been taking benztropine. The patient has a history of bipolar disorder and has been taking Topamax, Gabapentin, Depakote, fluphenazine. Fluphenazine was tapered off the last few weeks. We were unable to add Amitriptyline, nortriptyline due to the patient's history of bipolar disorder. The patient's provider recommended Botox which she received last week and it has not helped her headaches. The patient has a history of chronic headaches for more than two years. Headaches have become every day, more than 10/10 in intensity all around her head, pressure, throbbing in character lasting all day with dizziness, photophobia, and phonophobia. The patient had multiple medications changed over the last couple of weeks. Her primary care physician increased her Gabapentin to 600 mg by mouth four times daily and the patient was feeling lightheadedness when she came for her Botox. I recommended her to decrease her Gabapentin to 600 mg twice a day or three times a day. Her psychiatrist decided to discontinue her Topamax and decrease her Depakote from 1500 mg a day to 500 mg daily over the last one week. The patient called yesterday and complained of severe pain in her head and stated that she was unable to take it anymore. She was crying over the phone. The patient's mother was extremely concerned that something needed to be done about her head pain. I recommended them to come to the emergency department and likely admission for management of her bipolar disorder and her chronic headaches. I have recommended psychiatry consult as her mood disorder likely has a significant role in her chronic headaches and pain symptoms. The patient also has history of chronic neck pain and back pain. She has seen orthopedics. She denies dysphagia, dysarthria, diplopia, urinary incontinence, falls, or loss of consciousness. She denies any head injuries. PAST MEDICAL HISTORY: * Bipolar disorder. * Chronic migraines. * Hypertension. * Type-2 diabetes. * Coronary artery disease status post stent. * Cervical laminectomy/fusion. * Medication-induced parkinsonism which has improved. * Obstructive sleep apnea syndrome for which the patient uses CPAP every night for 6-8 hours per history and changes her mask regularly. HOME MEDICATIONS: - Benztropine 1 mg by mouth twice daily - Depakote ER 500 mg by mouth daily - Lisinopril 40 mg by mouth daily - Metformin 1000 mg by mouth daily - Klonopin 0.5 mg by mouth three times daily p.r.n. - Diclofenac gel as needed - Benadryl 25 mg by mouth at hour of sleep p.r.n. - Tylenol 1000 mg every 6 hours p.r.n. - She received her first Botox injections last week - Gabapentin 600 mg by mouth twice a day which has been stopped due to ineffectiveness and side effects - She was on Topamax which was discontinued this week ALLERGIES: TETANUS VACCINE, METOPROLOL. SOCIAL HISTORY: She denies alcohol or illicit drugs. She is a smoker. FAMILY HISTORY: Unremarkable and noncontributory. REVIEW OF SYSTEMS: All systems are reviewed and found to be noncontributory except as mentioned in the history of present illness. PHYSICAL EXAMINATION: VITAL SIGNS: Temperature 96.7, pulse 68, respiratory rate 17, blood pressure 138/80, 92% saturation on room air. HEART: Regular rate and rhythm. LUNGS: Clear to auscultation. ABDOMEN: Soft, nontender, nondistended. EXTREMITIES: No pedal edema. MUSCULOSKELETAL: No musculoskeletal abnormalities. SKIN: No rash. No signs of meningeal irritation. NEUROLOGIC: The patient is awake, alert and oriented to place, person and time. Normal speech, comprehension and repetition. Extraocular muscles are intact. No facial weakness. Tongue and uvula are midline, 5/5 strength in all four extremities. Deep tendon reflexes are 2+ throughout. Normal sensation in arms but decreased cold vibration sensation in her feet. Gait is significantly improved. She does not have cogwheel rigidity or tremor any more. She had resting tremor and cogwheel rigidity when she was on fluphenazine and had shuffling gait before. These have improved significantly. DIAGNOSTIC STUDIES: CT scan of head is unremarkable. She had MRI scan of brain and cervical spine during last admission which showed stable postsurgical changes in cervical spine without acute disease in brain. Her metabolic profile and CBC are unremarkable with WBCs 10.8. ESR was 11 and CRP was less than 0.3. ASSESSMENT: * Chronic migraines, without aura, intractable without status migrainosus. * Chronic tension headaches, intractable. * Bipolar disorder, insomnia, and anxiety disorder. * Chronic pain syndrome. * Neuroleptic-induced parkinsonism which has improved since fluphenazine has been tapered off. PLAN: * Recommend psychiatric consultation for appropriate treatment of her bipolar disorder. I do believe that her mood disorder is playing a role in her chronic pain syndrome including chronic headaches. * The patient had her first time Botox injections last week which have not helped so far. She wants to try one more time in three months. * We will restart Topamax 50 mg by mouth twice a day and increase it to 100 mg by mouth twice daily. * Increase Depakote to 500 mg by mouth twice a day and further treatment of bipolar disorder per psychiatry. * Discontinue Gabapentin as it did not help and made her more lightheaded and dizzy. We will likely discontinue Benztropine in the near future as well. * We cannot add Amitriptyline or nortriptyline without clearance from psychiatry to help her headaches. * Aimovig or Emgality injections as contingency plan. * Follow with us in 1-2 weeks after hospital discharge. [place]
[2020-06-30 14:00] VITALS: BP 107/63
--- NOTE | 2020-06-30 17:02 | IPNPDOC ---
Date Seen The patient was seen on 06/30/20. Progress Note SUBJECTIVE: Seen and examined this morning at bedside rounds. States moderate improvement in headache. Still displaying flat affect, low mood, low interest in participation in physical therapy and occupational therapy. No acute events overnight. OBJECTIVE PHYSICAL EXAMINATION: VITAL SIGNS: please see below General: NAD, comfortable HEENT: PERRLA, EOMI, sclerae clear Neck: supple, normal ROM, no JVD Respiratory: lungs CTAB, no wheeze, no rales, no crackles CVS: RRR, normal S1, S2, no murmurs Abdo: soft, no masses, no hepatosplenomegaly, BS+, no rebound tenderness Extremities: no edema, pulses 2+, left leg mildly swollen MSK: no joint deformities, normal ROM Neuro: no focal neuro deficits, moving all 4 extremities, CN2-12 intact. Strength 5/5 in all 4 extremities. No nystagmus. Psych: calm, cooperative, AAO x 3 LABORATORY DATA, IMAGING STUDIES, MICROBIOLOGY: Please see below. DVT prophylaxis ordered?: Y ASSESSMENT AND PLAN: Patient is 60 years old female with past history of bipolar disorder, migraines, hypertension, type 2 diabetes, coronary artery diseases with stents placement presented to the hospital with headache. Patient saw a neurologist Dr White in his office, and was sent to the ED for pain control severe headache. Patient currently receiving Topamax 100 mg by mouth twice a day as well as Depakote 500 mg twice a day. Flat affect, labile mood, will obtain psychiatry evaluation. She is known to the inpatient behavioral health unit in the past. PROBLEMS: Intractable headache: chronic issue. CT head wnl. Discussed with Dr. White. Increased dose of topiramate to 100 mg po bid. depakote 500 mg bid. Amitriptilyn 75 mg po QHS. Chronic neck/back pain: follows with ortho. Suspect component of fibromyalgia, discussed with Dr. White. Ongoing physical therapyfor stair navigation. Left leg swelling: Obtained venous duplex left leg. Negative for DVT. Likely lymphedema. CAD: asa/statin. allergic to BB. DM2: cc diet. hold metformin. 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 c/w benztropine HTN: lisinopril 40 mg daily Bipolar disorder II: patient has been admitted to [facility] more than 20 times. Psychiatry consult. Possible psychiatric component to headaches. Appreciate Dr. Johns consult, to start amitriptyline 50 mg qhs, Dr. White agrees. D/w Dr. White, given persistent pain, increase to 75 mg PO qhs. reduce klonopin to 0.5 mg BID prn frequency. Obesity: BMI 35.0. complicating care. DISPOSITION: Per PT notes, patient has lack of interest in participation and occupational therapy and physical therapy. Final PT needs kathrin be determined. Consider psych reevaluation if affect and lack of motivation persists. VS, I&O, 24H, Fishbone Vital Signs/I&O Vital Signs Date Time Temp Pulse Resp B/P (MAP) Pulse Ox O2 Delivery O2 Flow Rate FiO2 06/30/20 15:36 91 108/65 06/30/20 14:00 98.1 20 94 Room Air I&O- Last 24 Hours up to 6 AM 06/30/20 06:00 Intake Total 1120 ml Output Total 300 ml Balance 820 ml Laboratory Data 24H LABS Laboratory Tests 2 06/29/20 20:17: Bedside Glucose (Misc Panel) 105 06/30/20 06:02: Bedside Glucose (Misc Panel) 110H 06/30/20 08:48: Immature Granulocyte % (Auto) 0.3, Neutrophils (%) (Auto) 47.4, Lymphocytes (%) (Auto) 41.7, Monocytes (%) (Auto) 8.2H, Eosinophils (%) (Auto) 1.8, Basophils (%) (Auto) 0.6, Neutrophils # (Auto) 3.4, Lymphocytes # (Auto) 3.0, Monocytes # (Auto) 0.6, Eosinophils # (Auto) 0.1, Basophils # (Auto) 0.0, Nucleated Red Blood Cells % (auto) 0.0, Anion Gap 8, Glomerular Filtration Rate 49.0L, Calcium Level 9.9, Magnesium Level 2.2, Total Bilirubin 0.4, Aspartate Amino Transf (AST/SGOT) 20, Alanine Aminotransferase (ALT/SGPT) 23, Alkaline Phosphatase 87, Total Protein 7.5, Albumin 3.5, Albumin/Globulin Ratio 0.9L 06/30/20 11:53: Bedside Glucose (Misc Panel) 116H 06/30/20 16:24: Bedside Glucose (Misc Panel) 87 CBC/BMP Laboratory Tests 06/30/20 08:48 HARRIET WRIGHT MD Jun 30, 2020 17:02
[2020-06-30] MEDS: AMITRIPTYLINE 25 MG TAB PO SCH (20:55)
[2020-06-30] MEDS: ACETAMINOPHEN TAB 650MG DOSE (2X325MG) PO PRN (20:58)
[2020-06-30 22:00] VITALS: BP 93/58
[2020-07-01 06:00] VITALS: BP 116/71
[2020-07-01] MEDS: HumaLOG INSULIN (NovoLOG) PER UNIT SC SCH ×4 (07:30→20:55)
[2020-07-01] MEDS: VERAPAMIL 40 MG TAB PO SCH ×4 (09:07→23:18)
[2020-07-01] MEDS: DIVALPROEX 500 MG TAB PO SCH ×2 (09:08→21:05)
[2020-07-01] MEDS: BENZTROPINE 1 MG TAB PO SCH ×2 (09:08→21:04)
[2020-07-01] MEDS: ACETAMINOPHEN TAB 650MG DOSE (2X325MG) PO PRN ×2 (09:08→21:04)
[2020-07-01] MEDS: ASPIRIN 81 MG CHEW TABLET PO SCH (09:08)
[2020-07-01] MEDS: ATORVASTATIN 20 MG TAB PO SCH (09:08)
[2020-07-01] MEDS: lisinopriL 40 MG TAB PO SCH (09:08)
[2020-07-01] MEDS: TOPIRAMATE (TopAMAX) 100 MG TAB PO SCH ×2 (09:08→21:05)
[2020-07-01] MEDS: HEPARIN SOD (PORCINE) 5000UNITS/ML 1ML VIAL/SYRINGE SC SCH ×2 (09:09→21:05)
--- NOTE | 2020-07-01 13:24 | IPNPDOC ---
Text Note Date of Service The patient was seen on 07/01/20. NOTE Subjective: Patient seen and examined this morning tells me that her headache has improved. She has a low mood and flat affect but agreed to participate with physical therapy today. No overnight event. Objective: Constitutional: Awake and alert, in no apparent distress ENT: Sclera are clear. Mucosa is moist. Respiratory: Lungs CTA bilaterally. No respiratory distress. No use of acc essory muscles. Cardiovascular: RRR S1 and S2 are normal, no murmur Gastrointestinal: Abdomen is soft, non distended, non tender, BS present. Musculoskeletal: No edema. No joint deformities. Neurologic: No focal neurological deficit. Mental Status: A&O x3, flat affect low mood Skin: Warm, dry Assessment/plan: Patient is 60 years old female with past history of bipolar disorder, migraines, hypertension, type 2 diabetes, coronary artery diseases with stents placement presented to the hospital with headache. Patient saw a neurologist Dr White in his office, and was sent to the ED for pain control severe headache. Patient currently receiving Topamax as well as Depakote and amitriptyline. Flat affect, labile mood, evaluated by psychiatry. Both neurology and psychiatry in agreement that her headaches are most likely related to her underlying depression. Addition of amitriptyline, topiramate, and Depakote appear to have improved her severity of headaches. Patient is medically cleared to go home and follow-up wi th her primary care doctor in 3-5 days after discharge. Physical therapy recommended subacute rehabilitation due to trouble with stairs at home. Patient switched to [facility]. # Intractable headache: Improved now but this is a chronic issue seems to be related to her underlying depression. CT head wnl. Discussed with Dr. White neurology. Increased dose of topiramate to 100 mg po bid. depakote 500 mg bid. Amitriptilyn 75 mg po QHS. # Chronic neck/back pain: follows with ortho. Suspect component of fibromyalgia, discussed with Dr. White. Ongoing physical therapy for stair navigation recommend subacute rehabilitation. # Left leg swelling: Obtained venous duplex left leg. Negative for DVT. Likely lymphedema. # CAD: asa/statin. allergic to BB. # DM2: cc diet. hold metformin. # Neuroleptic-induced parkinsonism: 2/2 fluphenazine and depakote. c/w benztropine # HTN: lisinopril 40 mg daily # Bipolar disorder II: patient has been admitted to [facility] more than 20 times. Psychiatry consult. Possible psychiatric component to headaches. Appreciate Dr. Johns consult, to start amitriptyline 50 mg qhs, Dr. White agrees. D/w Dr. White, given persistent pain, increase to 75 mg PO qhs. reduce klonopin to 0.5 mg BID prn frequency. # Obesity: BMI 35.0. complicating care. Disposition: Medically cleared for discharge. Physical therapy recommended subacute rehabilitation. Patient switched ALC status. VS,Fishbone, I+O VS, Fishbone, I+O Vital Signs Date Time Temp Pulse Resp B/P (MAP) Pulse Ox O2 Delivery O2 Flow Rate FiO2 07/01/20 09:07 85 116/71 07/01/20 06:00 97.7 14 96 Room Air I&O- Last 24 Hours up to 6 AM 07/01/20 06:00 Intake Total 400 ml Output Total 300 ml Balance 100 ml PIERRE YOUSSEF MD Jul 01, 2020 13:24
[2020-07-01 14:00] VITALS: BP 121/84
[2020-07-01] MEDS: AMITRIPTYLINE 25 MG TAB PO SCH (21:04)
[2020-07-01 22:00] VITALS: BP 135/78
[2020-07-02 06:00] VITALS: BP 121/76
[2020-07-02] MEDS: HumaLOG INSULIN (NovoLOG) PER UNIT SC SCH ×2 (07:30→12:00)
[2020-07-02] MEDS: HEPARIN SOD (PORCINE) 5000UNITS/ML 1ML VIAL/SYRINGE SC SCH (09:17)
[2020-07-02] MEDS: BENZTROPINE 1 MG TAB PO SCH (09:17)
[2020-07-02] MEDS: ASPIRIN 81 MG CHEW TABLET PO SCH (09:17)
[2020-07-02] MEDS: ATORVASTATIN 20 MG TAB PO SCH (09:18)
[2020-07-02] MEDS: DIVALPROEX 500 MG TAB PO SCH (09:18)
[2020-07-02] MEDS: TOPIRAMATE (TopAMAX) 100 MG TAB PO SCH (09:18)
[2020-07-02] MEDS: lisinopriL 40 MG TAB PO SCH (09:18)
[2020-07-02 09:19] VITALS: BP 121/76
[2020-07-02] MEDS: VERAPAMIL 40 MG TAB PO SCH (09:19)
--- NOTE | 2020-07-02 12:58 | DS.PDOC ---
Discharge Summary General Date of Admission Jun 27, 2020 at 00:08 Date of Discharge 07/02/2020 Discharge Summary PROCEDURES PERFORMED DURING STAY: [None]. ADMITTING DIAGNOSES: 1. Headache DISCHARGE DIAGNOSES: 1. Headache likely due to depression COMPLICATIONS/CHIEF COMPLAINT: Intractable Headache. HISTORY OF PRESENT ILLNESS: HPI from admitting H&P: Patient is 60 years old female with past history of bipolar disorder, migraines, hypertension, type 2 diabetes, coronary artery diseases with stents placement presented to the hospital with headache. Patient saw a neurologist Dr White in his office today and he recommended to admit patient for pain management. Patient stated that she has been having severe headache 9 out of 10 for past 2 days. Of note patient has been having migraine for years. Patient denied fever, chills, chest pain, palpitations, nausea, vomiting, diarrhea or dysuria HOSPITAL COURSE: Patient is 60 years old female with past history of bipolar disorder, migraines, hypertension, type 2 diabetes, coronary artery diseases with stents placement presented to the hospital with headache. Patient saw a neurologist Dr White in his office, and was sent to the ED for pain control severe headache. Patient currently receiving Topamax as well as Depakote and amitriptyline. Flat affect, labile mood, evaluated by psychiatry. Both neurology and psychiatry in agreement that her headaches are most likely related to her underlying depression. Addition of amitriptyline, topiramate, and Depakote appear to have improved her severity of headaches. Patient is medically cleared to go home and follow-up with her primary care doctor in 3-5 days after discharge. She should also follow up with psychiatry as well as neurology upon discharge. # Intractable headache: Improved now but this is a chronic issue seems to be related to her underlying depression. CT head wnl. Discussed with Dr. White neurology. Increased dose of topiramate to 100 mg po bid. depakote 500 mg bid. Amitriptilyn 75 mg po QHS. Headache improved at time of discharge. # Chronic neck/back pain: follows with ortho. Suspect component of fibromyalgia, discussed with Dr. White. # Left leg swelling: Obtained venous duplex left leg. Negative for DVT. Likely lymphedema. # CAD: asa/statin. allergic to BB. # DM2: cc diet. hold metformin. # Neuroleptic-induced parkinsonism: 2/2 fluphenazine and depakote. c/w benztropine # HTN: lisinopril 40 mg daily # Bipolar disorder II: patient has been admitted to [facility] more than 20 times. Psychiatry consult. Possible psychiatric component to headaches. Appreciate Dr. Johns consult, to start amitriptyline 50 mg qhs, Dr. White agrees. D/w Dr. White, given persistent pain, increase to 75 mg PO qhs. reduce klonopin to 0.5 mg BID prn frequency. # Obesity: BMI 35.0. complicating care. Disposition: Medically cleared for discharge. Physical therapy recommended DISCHARGE MEDICATIONS: Please see below. ALLERGIES: Please see below. PHYSICAL EXAMINATION ON DISCHARGE: VITAL SIGNS: Please see below. Constitutional: Awake and alert, in no apparent distress ENT: Sclera are clear. Mucosa is moist. Respiratory: Lungs CTA bilaterally. No respiratory distress. No use of accessory muscles. Cardiovascular: RRR S1 and S2 are normal, no murmur Gastrointestinal: Abdomen is soft, non distended, non tender, BS present. Musculoskeletal: No edema. No joint deformities. Neurologic: No focal neurological deficit. Mental Status: A&O x3, flat affect low mood Skin: Warm, dry LABORATORY DATA: Please see below. IMAGING: CT head without contrast 06/26/2020 impressions: 1. No acute intracranial hemorrhage or acute territorial type infarct. 2. There are small periventricular foci of white matter hypodensity, likely representing small vessel ischemic disease in a patient this age. 3. Stable atrophy. 4. Mild effusions again visualized within left mastoid air cells. Duplex left lower leg 06/28/2020:No evidence for deep venous thrombosis. PROGNOSIS: Fair ACTIVITY: [As tolerated]. DIET: Regular DISPOSITION: Home DISCHARGE INSTRUCTIONS: Please follow up with your primary care physician within 1 week from discharge. If you do not have one, please follow up with us to schedule an appointment. Please keep all of your follow up appointments. Please call central to book your appointments with hospital specialists. Please take all your medications as prescribed. Please call/come to Clinic or go to the Emergency Department if - Temp >101, intractable Nausea/Vomiting, Diarrhea, Mouth sores, Headaches, Altered mental status, Seizures, sudden onset of swelling, bleeding, shortness of breath or chest pain. ITEMS TO FOLLOWUP ON ON OUTPATIENT: Follow-up with PCP 2- 5 days after discharge Follow-up with psychiatry after discharge DISCHARGE CONDITION: [Stable]. TIME SPENT ON DISCHARGE: 35 minutes. Vital Signs/I&Os Vital Signs Date Time Temp Pulse Resp B/P (MAP) Pulse Ox O2 Delivery O2 Flow Rate FiO2 07/02/20 09:19 87 121/76 07/02/20 06:00 97.9 18 94 Room Air I&O- Last 24 Hours up to 6 AM 07/02/20 06:00 Intake Total 360 ml Output Total 400 ml Balance -40 ml Laboratory Data Labs 24H Laboratory Tests 2 07/01/20 17:23: Bedside Glucose (Misc Panel) 116H 07/01/20 20:44: Bedside Glucose (Misc Panel) 88 07/01/20 21:02: Bedside Glucose (Misc Panel) 150H 07/02/20 05:56: Bedside Glucose (Misc Panel) 124H 07/02/20 11:50: Bedside Glucose (Misc Panel) 122H FSBS Laboratory Tests Test 07/01/20 17:23 07/01/20 20:44 07/01/20 21:02 07/02/20 05:56 Range/Units Bedside Glucose (Misc Panel) 116 88 150 124 70-105 MG/DL Test 07/02/20 11:50 Range/Units Bedside Glucose (Misc Panel) 122 70-105 MG/DL Discharge Medications Scheduled Benztropine Mesylate (Benztropine Mesylate) 2 Mg Tablet, 1 MG PO BID, (Reported) Divalproex Sodium (Divalproex Sodium ER) 500 Mg Tab.er.24h, 500 MG PO DAILY, (Reported) Lisinopril (Lisinopril) 40 Mg Tablet, 40 MG PO DAILY, (Reported) Metformin HCl (Metformin HCl) 1,000 Mg Tab, 1,000 MG PO DAILY, (Reported) Scheduled PRN Acetaminophen (Tylenol Extra Strength) 500 Mg Tablet, 1,000 MG PO Q6H PRN for HEADACHE OR PAIN, (Reported) Clonazepam (Clonazepam) 0.5 Mg Tablet, 0.5 MG PO TID PRN for ANXIETY, (Reported) Diclofenac Sodium (Diclofenac Sodium) 1% 100GM Gel..gram., 1 DOSE TOP BID PRN for PAIN, (Reported) USES ON BACK OF NECK OR LEFT HIP NEEDED Diphenhydramine HCl (Diphenhydramine HCl) 25 Mg Capsule, 25 MG PO QHS PRN for INSOMNIA, (Reported) Allergies Coded Allergies: Tetanus Vaccines and Toxoid (Verified Allergy, Unknown, 06/26/20) metoprolol (Verified Adverse Reaction, Unknown, SECOND DEGREE HEART BLOCK, 06/26/20) PIERRE YOUSSEF MD Jul 02, 2020 12:58
[2020-07-02] MEDS ORDERED: VERA40TA PO (13:03)
[2020-07-02] MEDS ORDERED: ASPI81CH8 PO (13:03)
[2020-07-02] MEDS ORDERED: TOPA100T12 PO (13:03)
[2020-07-02] MEDS ORDERED: DEPA1TAB3 PO (13:03)
[2020-07-02] MEDS ORDERED: AMIT25TA PO (13:03)
[2020-07-02] MEDS ORDERED: ATOR1TAB21 PO (13:03)
[2020-07-02 14:10] VITALS: BP 112/82
== END 2020-07-02 15:10 | disposition home health service (06) | DRG 103 ==
LOC: M ED 17:11 → M ED INP 06-27 00:08 → ENRESERV 06-27 00:29 → M PCU 06-27 01:48 → M MS5PR 06-27 23:30
PROVIDERS: ADMIT Internal Medicine; ATTEND Family Medicine
DX: G44.221 Chronic tension-type headache, intractable (principal); G21.11 Neuroleptic induced parkinsonism; F31.81 Bipolar II disorder; M54.2 Cervicalgia; M54.5 Low back pain; I25.10 Atherosclerotic heart disease of native coronary artery without angina pectoris; E11.9 Type 2 diabetes mellitus without complications; I10 Essential (primary) hypertension; E66.9 Obesity, unspecified; Z68.35 Body mass index [BMI] 35.0-35.9, adult; Z79.899 Other long term (current) drug therapy; Z88.8 Allergy status to other drugs, medicaments and biological substances; Z88.7 Allergy status to serum and vaccine; G43.909 Migraine, unspecified, not intractable, without status migrainosus; Z95.2 Presence of prosthetic heart valve; F17.200 Nicotine dependence, unspecified, uncomplicated; F60.7 Dependent personality disorder; G50.0 Trigeminal neuralgia; M79.7 Fibromyalgia

== ENCOUNTER → 2020-09-18 | Outpatient (CLI) | payer MEDICARE, MEDICAID ==
[~2020-09-18] MED LIST changes: +ACET-897 PO; +ASPI81CH8 PO; +ATOR1TAB21 PO; +BENZ2TAB5 PO; +CLON0.5T2; +DICL1GEL3 TOP; -FLUP5TA PO; +FLUP5TAB13 PO; +MIRT-62 PO; -REME15TA PO; +RISP-8 PO; +RISP-9 PO; -RISP1TAB3 PO; -RISP2TAB3 PO; +VERA40TA PO
[2020-09-18 15:49] LABS: CREATININE FOR GFR 1.17 MG/DL (0.55-1.30); GLOMERULAR FILTRATION RATE 50.4 (>51)
== END ==
LOC: M PLALAB 11:44
PROVIDERS: ATTEND Physical Medicine & Rehabilitation
DX: Z01.812 Encounter for preprocedural laboratory examination (principal); Z20.822 Contact with and (suspected) exposure to COVID-19

== ENCOUNTER → 2020-09-19 | Outpatient (CLI) | payer MEDICARE, MEDICAID ==
[~2020-09-19] MED LIST changes: -AMIT25TA PO; +AMIT25TA17 PO; +GABA-282 PO; -GABA-843 PO
[2020-09-19 15:37] LABS: PLATELET COUNT, AUTOMATED 230 10^3/uL (150-450)
[2020-09-19 16:05] LABS: INR 0.91; PARTIAL THROMBOPLASTIN TIME 31.8 SECONDS (24.2-38.5); PROTHROMBIN TIME 12.4 SECONDS (12.5-14.3)
== END ==
LOC: M PLALAB 11:45
PROVIDERS: ATTEND Physical Medicine & Rehabilitation
DX: M51.36 Other intervertebral disc degeneration, lumbar region (principal)

== ENCOUNTER → 2020-10-02 | Outpatient (REF) | payer MEDICARE, MEDICAID ==
[~2020-10-02] MED LIST changes: -LISI-538 PO; +LISI20TA33 PO; -LISI40TA PO; +LISI40TA4 PO; +QUET50TA3 PO; -QUET5TAB PO
== END ==
LOC: M WUC 15:42
PROVIDERS: ATTEND Physician Assistant
DX: N39.0 Urinary tract infection, site not specified (principal)

== ENCOUNTER → 2020-10-13 | Outpatient (CLI) | payer MEDICARE, MEDICAID ==
[~2020-10-13] MED LIST changes: +LISI-538 PO; -LISI20TA33 PO; +LISI40TA PO; -LISI40TA4 PO; -QUET50TA3 PO; +QUET5TAB PO
[2020-10-13 13:06] LABS: HEMATOCRIT 44.4 % (36.0-47.0); HEMOGLOBIN 14.1 g/dl (12.0-15.5); MEAN CORPUSCULAR HEMOGLOBIN 29.4 pg (27.0-33.0); MEAN CORPUSCULAR HGB CONC 31.8 g/dl (32.0-36.5); MEAN CORPUSCULAR VOLUME 92.5 fl (80.0-96.0); PLATELET COUNT, AUTOMATED 276 10^3/uL (150-450); WHITE BLOOD COUNT 9.1 10^3/uL (4.0-10.0)
[2020-10-13 13:35] LABS: ALBUMIN 3.6 GM/DL (3.2-5.2); BILIRUBIN,TOTAL 0.2 MG/DL (0.2-1.0); CALCIUM LEVEL 9.9 MG/DL (8.5-10.1); CREATININE FOR GFR 1.11 MG/DL (0.55-1.30); GLOMERULAR FILTRATION RATE 53.6 (>51); POTASSIUM SERUM 4.4 MEQ/L (3.5-5.1); TOTAL PROTEIN 7.4 GM/DL (6.4-8.2)
[2020-10-13 16:31] LABS: HEMOGLOBIN A1c 5.7 %
== END ==
LOC: M LAB 12:43
PROVIDERS: ATTEND Internal Medicine
DX: F31.4 Bipolar disorder, current episode depressed, severe, without psychotic features (principal); I10 Essential (primary) hypertension; E11.9 Type 2 diabetes mellitus without complications

== ENCOUNTER 2020-11-15 06:58 | Inpatient (IN) | payer MEDICARE, MEDICAID ==
[~2020-11-15] VITALS: Ht 165.1 cm; Wt 88.0 kg
[~2020-11-15 06:58] MED LIST changes: -LISI-538 PO; +LISI20TA33 PO; -LISI40TA PO; +LISI40TA4 PO; +QUET50TA3 PO; -QUET5TAB PO
[2020-11-15] MEDS ORDERED: METOCLOPRAMIDE INJ 10MG/2ML VIAL (J2765 PER 1) IV ONE (07:40)
--- NOTE | 2020-11-15 08:06 | REPVR ---
PROCEDURE INFORMATION: Exam: CT Head Without Contrast Exam date and time: 11/15/2020 7:52 AM Age: 60 years old Clinical indication: Pain; Headache not specified; Additional info: CVA - nursing interventions must not delay CT TECHNIQUE: Imaging protocol: Computed tomography of the head without contrast. Radiation optimization: All CT scans at this facility use at least one of these dose optimization techniques: automated exposure control; mA and/or kV adjustment per patient size (includes targeted exams where dose is matched to clinical indication); or iterative reconstruction. COMPARISON: CT Head without contrast 06/26/2020 8:07 PM FINDINGS: Brain: No acute intracranial hemorrhage. No mass effect or midline shift. Mild accentuation ventricles probably on the basis of central volume loss. Low attenuating white-matter changes suggesting element of micro vessel ischemia on a chronic basis. Minor area of increased attenuation extra-axial space over the lateral right frontal lobe is similar to previous CT probably reflecting artifact or combination dural thickening. This finding best demonstrated on series 201, image [address] and on series 201, image [address] Cerebral ventricles: See "Brain" finding. Bones/joints: Unremarkable. No acute fracture. Paranasal sinuses: Visualized sinuses are unremarkable. No fluid levels. Mastoid air cells: Minor soft tissue or fluid opacification of left mastoid air cells. Vasculature: Intracranial vascular calcification. Soft tissues: Unremarkable. Other findings: Hemispheric volume loss. IMPRESSION: 1. Chronic intracranial changes stable. 2. No acute intracranial process. Electronically signed by: Shelbie Lawrence On 11/15/2020 08:06:45 AM
[2020-11-15] MEDS ORDERED: MORPHINE 2 MG/ML 1ML VIAL (J2270) IV ONE ×2 (08:20→09:40)
--- NOTE | 2020-11-15 08:23 | REP ---
INDICATION: CVA COMPARISON: 05/10/2019 TECHNIQUE: Portable AP view of the chest FINDINGS: The mediastinum and cardiac silhouette are stable and within normal limits for portable technique. The lung kraft are clear without acute consolidation, effusion, or pneumothorax. Skeletal structures are intact. IMPRESSION: No acute cardiopulmonary process appreciated. <Electronically signed by Yosef Aguilar > 11/15/20 [id number]
[2020-11-15] MEDS ORDERED: ACETAMINOPHEN TAB 650MG DOSE (2X325MG) PO ONE (08:25)
[2020-11-15] MEDS ORDERED: KETOROLAC 30 MG/ML 1ML VIAL IV ONE (08:25)
[2020-11-15 08:44] LABS: PARTIAL THROMBOPLASTIN TIME 21.8 SECONDS (24.2-38.5)
[2020-11-15 09:07] LABS: CK-MB VALUE MASS < 1.0 NG/ML (<3.6); CPK CREATINE PHOSPHOKINASE 44 U/L (26-192); MB/CK RELATIVE INDEX 2.27 (< OR =4); TROPONIN I 0.37 NG/ML (< 0.10)
[2020-11-15 09:11] LABS: BASO # 0.1 10^3/uL (0.0-0.2); BASO % 0.4 % (0.0-1.0); EOS # 0.2 10^3/uL (0.0-0.5); EOS % 1.3 % (0.0-3.0); HEMATOCRIT 43.6 % (36.0-47.0); HEMOGLOBIN 13.9 g/dl (12.0-15.5); LYMPH # 1.6 10^3/uL (1.5-5.0); LYMPH % 11.9 % (24.0-44.0); MEAN CORPUSCULAR HEMOGLOBIN 28.8 pg (27.0-33.0); MEAN CORPUSCULAR HGB CONC 31.9 g/dl (32.0-36.5); MEAN CORPUSCULAR VOLUME 90.3 fl (80.0-96.0); MONO # 0.4 10^3/uL (0.0-0.8); MONO % 3.2 % (2.0-8.0); NEUTROPHILS # 11.4 10^3/uL (1.5-8.5); NEUTROPHILS % 82.5 % (36.0-66.0); PLATELET COUNT, AUTOMATED 273 10^3/uL (150-450); RED BLOOD COUNT 4.83 10^6/uL (4.00-5.40); WHITE BLOOD COUNT 13.8 10^3/uL (4.0-10.0)
[2020-11-15 09:57] LABS: INR 0.95; PROTHROMBIN TIME 12.9 SECONDS (12.5-14.3)
[2020-11-15] MEDS ORDERED: MAG SULF 1GM/100ML (MAG RUN) 1 GM in IV 1 EA IV ONE (10:15)
[2020-11-15] MEDS ORDERED: ISOVUE-370 76% 100ML VIAL As Ordered ONE (10:20)
[2020-11-15 10:42] LABS: CK-MB VALUE MASS < 1.0 NG/ML (<3.6); CPK CREATINE PHOSPHOKINASE 38 U/L (26-192); MB/CK RELATIVE INDEX 2.63 (< OR =4)
[2020-11-15 10:50] LABS: RSV AMPLIFICATION NEGATIVE (NEGATIVE)
--- NOTE | 2020-11-15 11:48 | REP ---
INDICATION: SOB COMPARISON: None. TECHNIQUE: Jara scale and color Doppler evaluation bilateral lower extremities using linear high frequency transducer. FINDINGS: Ultrasound examination of the right and left lower extremity deep venous structures from the common femoral vein to the popliteal vein demonstrates normal compressibility flow and wave patterns in response to respiration and augmentation. There is no evidence for deep venous thrombosis. IMPRESSION: No evidence for deep venous thrombosis. <Electronically signed by Yosef Aguilar > 11/15/20 [id number]
--- NOTE | 2020-11-15 12:35 | REP ---
INDICATION: SOB COMPARISON: None. TECHNIQUE: Axial contrast enhanced images from the thoracic inlet to the upper abdomen using pulmonary embolus technique with multiplanar re-formations. 75 ml Isovue 370 intravenous contrast material administered without complication. This CT examination was performed using the following dose reduction techniques: Automated exposure control, adjustment of mA and/or kv according to the patient's size, and use of iterative reconstruction technique. FINDINGS: Satisfactory enhancement of the pulmonary vasculature is achieved and no filling defects are identified to suggest pulmonary embolus. Further evaluation of the mediastinum demonstrates mild atherosclerotic changes to the thoracic aorta and coronary arteries without aortic aneurysm/dissection or cardiomegaly. No pericardial effusion. The lung kraft demonstrate mild bibasilar atelectasis (left greater than right). No effusion. No pneumothorax. Tracheobronchial tree is patent. Small mediastinal and hilar lymph nodes are nonspecific and likely reactive. IMPRESSION: No evidence for pulmonary embolus. Mild bibasilar atelectasis (left greater than right). <Electronically signed by Yosef Aguilar > 11/15/20 [id number]
[2020-11-15] MEDS ORDERED: ZONI100C17 PO (13:12)
[2020-11-15] MEDS ORDERED: CLOB10TA PO (13:12)
[2020-11-15 13:44] LABS: MB/CK RELATIVE INDEX 3.57 (< OR =4); TROPONIN I 0.37 NG/ML (< 0.10)
[2020-11-15] MEDS ORDERED: GLUCAGON INJ 1MG VIAL SC PRN (14:25)
[2020-11-15] MEDS ORDERED: GLUCOSE 4GM CHEW TABLET PO PRN (14:25)
[2020-11-15] MEDS ORDERED: DEXTROSE 50% 50 ML SYRINGE IV PRN (14:25)
--- NOTE | 2020-11-15 14:37 | HPEPDOC ---
General Date of Admission Nov 15, 2020 at 14:15 Date of Service: Nov 15, 2020 Chief Complaint The patient is a 60-year-old female admitted with a reason for visit of Chronic Migraine, Dm, Elevated Troponin. Source: Patient Exam Limitations: Clinical conditions Timing/Duration: Week(s) Severity: Moderate, Severe History of Present Illness Patient is 60 years old female with past medical history of bipolar disorder, migraines, hypertension, type 2 diabetes, coronary artery diseases with stents placement presented to the hospital with severe headache. Patient stated that she has been having severe headache, constant 10 out of 10 for past week. Of note patient has been having migraine for years. Patient denied fever, chills, chest pain, palpitations, nausea, vomiting, diarrhea or dysuria. Patient stated that her regular medications for migraine did not alleviate the pain. Patient stated the pain located in the occipital and temporal areas. Also she stated that she developed mild dyspnea. In ED patient was found to have leukocytosis of 13.8, first troponin 0.37, second troponin 0.4, 3d troponin 0.37. EKG showed first-degree AV block, sinus rhythm, left anterior fascicular block. Cardiology team recommended to admit patient for observation for next 24 hours. CTA negative for PE Home Medications Scheduled Aspirin (Children's Aspirin) 81 Mg Tab.chew, 81 MG PO DAILY Benztropine Mesylate (Benztropine Mesylate) 2 Mg Tablet, 2 MG PO BID, (Reported) Divalproex Sodium (Divalproex Sodium) 500 Mg Tablet.dr, 500 MG PO BID, (Reported) Fluphenazine HCl (Fluphenazine HCl) 5 Mg Tablet, 5 MG PO QHS, (Reported) Gabapentin (Gabapentin) 300 Mg Capsule, 300 MG PO QID, (Reported) Lisinopril (Lisinopril) 40 Mg Tablet, 40 MG PO DAILY, (Reported) Topiramate (Topiramate) 100 Mg Tablet, 100 MG PO BID, (Reported) Scheduled PRN Acetaminophen (Tylenol Extra Strength) 500 Mg Tablet, 1,000 MG PO Q6H PRN for HEADACHE OR PAIN, (Reported) Diclofenac Sodium (Diclofenac Sodium) 1% 100GM Gel..gram., 1 DOSE TOP BID PRN for PAIN, (Reported) USES ON BACK OF NECK OR LEFT HIP NEEDED Diphenhydramine HCl (Diphenhydramine HCl) 25 Mg Capsule, 25 MG PO QHS PRN for INSOMNIA, (Reported) Sumatriptan Succinate (Sumatriptan Succinate) 100 Mg Tablet, 100 MG PO DAILY PRN for MIGRAINE, (Reported) Tizanidine HCl (Tizanidine HCl) 4 Mg Tablet, 4 MG PO TID PRN for MUSCLE SPASMS, (Reported) Allergies Coded Allergies: Tetanus Vaccines and Toxoid (Verified Allergy, Unknown, 06/26/20) metoprolol (Verified Adverse Reaction, Severe, SECOND DEGREE HEART BLOCK, 11/15/20) Past Medical History Medical History Migraines Chronic neck and back pain / C5-7 fusion Chronic HTN NIDM2 CAD w placement of 2 stents Bipolar II Disorder MDD Surgical History 2 cardiac stents placement Family History I personally reviewed family history and found not pertinent Social History * Smoker: current smoker Alcohol: Denies Drugs: denies A-FIB/CHADSVASC A-FIB History Current/History of A-Fib/PAF?: No Current PO Anticoag Therapy: No Review of Systems Constitutional: Denies: Chills, Fever Eyes: Denies: Pain, Vision change ENT: Reports: Head Aches Skin: Denies: Rash Pulmonary: Reports: Dyspnea Cardiovascular: Denies: Chest Pain, Palpitations Gastrointestinal: Denies: Nausea Genitourinary: Denies: Dysuria, Frequency Hematologic: Denies: Bruising Endocrine: Denies: Polydipsia, Polyphagia Musculoskeletal: Denies: Neck Pain Neurological: Denies: Weakness Psych: Reports: Mood Normal Physical Examination General Exam: Positive: Alert, Cooperative, Moderate Distress Eye Exam: Positive: PERRLA ENT Exam: Positive: Atraumatic Neck Exam: Positive: Supple; Negative: JVD Chest Exam: Positive: Clear to auscultation Heart Exam: Positive: Rate Normal Telemetry: Positive: No significant arrhythmia Abdomen Exam: Positive: Normal bowel sounds Extremity Exam: Negative: Clubbing, Cyanosis Skin Exam: Positive: Nl turgor and temperature Neuro Exam: Positive: Strength at 5/5 X4 ext, Cranial Nerves 3-12 NL Psych Exam: Positive: Mental status NL, Oriented x 3 Vital Signs Vital Signs Date Time Temp Pulse Resp B/P (MAP) Pulse Ox O2 Delivery O2 Flow Rate FiO2 11/15/20 11:05 75 97 11/15/20 10:05 18 11/15/20 10:00 137/70 (92) 3/6/21 08:45 Room Air 11/15/20 07:21 98.0 Laboratory Data Labs 24H Laboratory Tests 2 11/15/20 07:36: Prothrombin Time 12.9, Prothromb Time International Ratio 0.95, Activated Partial Thromboplast Time 21.8L, Total Creatine Kinase 44, Creatine Kinase MB < 1.0, Creatine Kinase MB Relative Index 2.27, Troponin I 0.37H 11/15/20 08:11: Bedside Glucose (Misc Panel) 111H 11/15/20 08:25: POC Prothrombin Time (Misc) 12.9, POC INR (Misc) 1.1 11/15/20 08:27: POC Glucose (Misc Panel) 114H, POC Sodium (Misc Panel) 141, POC Potassium (Misc Panel) 3.7, POC Chloride (Misc Panel) 108, POC Total CO2 (Misc Panel) 23.0, POC Blood Urea Nitrogen (Misc Panel 13, POC Ionized Calcium (Misc Panel) 5.1, POC Creatinine (Misc Panel) 0.8, POC Hematocrit (Misc Panel) 44.0 11/15/20 09:02: Immature Granulocyte % (Auto) 0.7, Neutrophils (%) (Auto) 82.5H, Lymphocytes (%) (Auto) 11.9L, Monocytes (%) (Auto) 3.2, Eosinophils (%) (Auto) 1.3, Basophils (%) (Auto) 0.4, Neutrophils # (Auto) 11.4H, Lymphocytes # (Auto) 1.6, Monocytes # (Auto) 0.4, Eosinophils # (Auto) 0.2, Basophils # (Auto) 0.1, Nucleated Red Blood Cells % (auto) 0.0 11/15/20 10:01: Total Creatine Kinase 38, Creatine Kinase MB < 1.0, Creatine Kinase MB Relative Index 2.63, Troponin I 0.40H, Coronavirus (COVID-19)(PCR) NEGATIVE, Influenza Type A (RT-PCR) NEGATIVE, Influenza Type B (RT-PCR) NEGATIVE, Respiratory Syncytial Virus (PCR) NEGATIVE 11/15/20 12:54: Total Creatine Kinase 28, Creatine Kinase MB 1.0, Creatine Kinase MB Relative Index 3.57, Troponin I 0.37H CBC/BMP Laboratory Tests 11/15/20 09:02 Assessment/Plan Patient is 60 years old female with past medical history of bipolar disorder, migraines, hypertension, type 2 diabetes, coronary artery diseases with stents placement presented to the hospital with severe headache. Patient stated that she has been having severe headache, constant 10 out of 10 for past week. Of note patient has been having migraine for years. Patient denied fever, chills, chest pain, palpitations, nausea, vomiting, diarrhea or dysuria. Patient stated that her regular medications for migraine did not alleviate the pain. Patient stated the pain located in the occipital and temporal areas. Also she stated that she developed mild dyspnea. In ED patient was found to have leukocytosis of 13.8, first troponin 0.37, second troponin 0.4, 3d troponin 0.37. EKG showed first-degree AV block, sinus rhythm, left anterior fascicular block. Cardiology team recommended to admit patient for observation for next 24 hours. CTA negative for PE Problems (1) Intractable headache Status: Acute Problem Text: Patient stated that she has a new pattern of headache. There is possibility for acute stroke, questionable malignancy. CT head negative for stroke or acute bleed Will proceed with MRI talked Dr White, her regular neurologist, he recommended propranolol 10 mg twice a day by mouth and occipital Botox injection in the outpatient settings. However, on metoprolol pt developed 2 degree heart block. Propranolol on hold for now (2) Diabetes mellitus Status: Chronic Problem Text: Insulin sliding scale Diabetes diet (3) Elevated troponin Status: Acute Problem Text: Most likely demand ischemia EKG did not show any new ischemic changes Continue to monitor troponin Echo ordered Telemetry Continue aspirin, I added statin to her medical regimen (4) Bipolar disorder Status: Chronic Problem Text: Continue home meds (5) Occipital neuralgia Status: Chronic Problem Text: Follow-up with Dr. White in the outpatient settings Plan / VTE VTE Prophylaxis Ordered?: Yes LA SOLOMON DO Nov 15, 2020 14:37
[2020-11-15] MEDS ORDERED: GABA-282 PO (14:42)
[2020-11-15] MEDS ORDERED: DIVA500T94 PO (14:42)
[2020-11-15] MEDS ORDERED: TOPI100T9 PO (15:00)
[2020-11-15] MEDS ORDERED: SUMA100T2 PO (15:00)
[2020-11-15] MEDS ORDERED: FLUP5TAB13 PO (15:00)
[2020-11-15] MEDS ORDERED: TIZA4TAB4 PO (15:00)
[2020-11-15] MEDS ORDERED: diphenhydrAMINE 25MG CAP PO PRN (15:05)
--- NOTE | 2020-11-15 15:24 | ECGEPIP ---
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
[2020-11-15 15:48] LABS: CK-MB VALUE MASS 1.2 NG/ML (<3.6); TROPONIN I 0.41 NG/ML (< 0.10)
[2020-11-15] MEDS ORDERED: ASPIRIN 81 MG CHEW TABLET PO ONE (16:00)
[2020-11-15] MEDS ORDERED: ATORVASTATIN 20 MG TAB PO ONE (16:00)
[2020-11-15 16:07] VITALS: BP 107/73
--- NOTE | 2020-11-15 16:14 | REPVR ---
PROCEDURE INFORMATION: Exam: MR Head Without Contrast Exam date and time: 11/15/2020 3:52 PM Age: 60 years old Clinical indication: Weakness, extremity and weakness, facial; Left; Patient HX: Weakness in lt side of body and face, slurred speech and confusion that has since subsided. ; Additional info: Stroke TECHNIQUE: Imaging protocol: MR of the head without contrast. COMPARISON: MRI-Brain without Contrast 05/12/2020 12:00 PM FINDINGS: Brain: Mild nonspecific T2/FLAIR hyperintensities of the periventricular and deep subcortical white matter, most likely secondary to chronic small vessel ischemic change. No intracranial hemorrhage or extra-axial fluid collection. No evidence of mass effect or midline shift. No restricted diffusion to suggest acute infarct. Cerebral ventricles: Mild prominence of the ventricles and sulci, likely attributed to parenchymal volume loss. Bones/joints: Unremarkable. Paranasal sinuses: Normal as visualized. No acute sinusitis. Mastoid air cells: Chronic opacified inferior left mastoid air cells. Orbital cavity: Unremarkable. Soft tissues: Unremarkable. IMPRESSION: 1. No acute intracranial pathology. 2. Chronic findings, as above. Electronically signed by: Brenton Antony On 11/15/2020 16:15:06 PM
[2020-11-15] MEDS: GABAPENTIN 300 MG CAP PO SCH ×2 (16:16→20:55)
[2020-11-15] MEDS: ACETAMINOPHEN TAB 650MG DOSE (2X325MG) PO PRN (16:16)
[2020-11-15] MEDS: lisinopriL 40 MG TAB PO SCH (16:18)
--- NOTE | 2020-11-15 16:27 | ECGEPIP ---
[facility] - ED Test Date: 2020-11-15 Pat Name: ANISH OHARA Department: Room: - Gender: Female Ui Architect: Meme LAKHANI : 1960 Requested By: Savita Banda Order Number: [id number] Reading MD: Savita Banda Measurements Intervals Pimento Rate: 74 P: 51 LA: 198 QRS: -71 QRSD: 138 T: 23 QT: 436 QTc: 483 Interpretive Statements Normal sinus rhythm LEFT AXIS DEVIATION Right bundle branch block Left anterior fascicular block Bifascicular block Anterolateral infarct , age undetermined NONSPECIFIC ST T WAVE CHANGES cw 11/15/[address] T WAVE CHANGES Electronically Signed on 11-15-2020 16:27:25 EST by Savita Banda
--- NOTE | 2020-11-15 16:30 | ECGEPIP ---
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
[2020-11-15] MEDS: HumaLOG INSULIN (NovoLOG) PER UNIT SC SCH ×2 (17:16→22:07)
[2020-11-15] MEDS ORDERED: MORPHINE 2 MG/ML 1ML VIAL (J2270) IV PRN (17:45)
[2020-11-15] MEDS ORDERED: CLOPIDOGREL 75 MG TAB PO ONE (18:00)
[2020-11-15] MEDS: MORPHINE 2 MG/ML 1ML VIAL (J2270) IV PRN (18:05)
[2020-11-15] MEDS: DIVALPROEX 500 MG TAB PO SCH (20:55)
[2020-11-15] MEDS: ENOXAPARIN 40MG/0.4ML SYRINGE (J1650 PER 10MG) SC SCH (20:55)
[2020-11-15] MEDS: fluPHENAZine 5MG TABLET PO SCH (20:55)
[2020-11-15] MEDS: TOPIRAMATE (TopAMAX) 100 MG TAB PO SCH (20:55)
[2020-11-15] MEDS: BENZTROPINE 2 MG TAB PO SCH (20:55)
[2020-11-15] MEDS ORDERED: PROPRANOLOL 10 MG TAB PO SCH (21:00)
[2020-11-15 22:00] VITALS: BP 116/68
[2020-11-16 06:00] VITALS: BP 115/63
[2020-11-16 06:03] LABS: HEMOGLOBIN 13.7 g/dl (12.0-15.5); MEAN CORPUSCULAR HEMOGLOBIN 29.1 pg (27.0-33.0); MEAN CORPUSCULAR HGB CONC 31.9 g/dl (32.0-36.5); MEAN CORPUSCULAR VOLUME 91.5 fl (80.0-96.0); PLATELET COUNT, AUTOMATED 251 10^3/uL (150-450); WHITE BLOOD COUNT 8.8 10^3/uL (4.0-10.0)
[2020-11-16 06:38] LABS: BLOOD UREA NITROGEN 22 MG/DL (7-18); CALCIUM LEVEL 9.3 MG/DL (8.5-10.1); CARBON DIOXIDE LEVEL 24 MEQ/L (21-32); CHLORIDE LEVEL 110 MEQ/L (98-107); CREATININE FOR GFR 0.88 MG/DL (0.55-1.30); GLOMERULAR FILTRATION RATE > 60.0 (>51); GLUCOSE, FASTING 109 MG/DL (70-100); MAGNESIUM LEVEL 2.4 MG/DL (1.8-2.4); POTASSIUM SERUM 4.2 MEQ/L (3.5-5.1); SODIUM LEVEL 141 MEQ/L (136-145)
[2020-11-16] MEDS: HumaLOG INSULIN (NovoLOG) PER UNIT SC SCH ×4 (07:30→21:00)
[2020-11-16] MEDS: GABAPENTIN 300 MG CAP PO SCH ×4 (08:48→21:50)
[2020-11-16] MEDS: ATORVASTATIN 20 MG TAB PO SCH (08:48)
[2020-11-16] MEDS: BENZTROPINE 2 MG TAB PO SCH ×2 (08:48→21:50)
[2020-11-16] MEDS: TOPIRAMATE (TopAMAX) 100 MG TAB PO SCH ×2 (08:48→21:50)
[2020-11-16] MEDS: DIVALPROEX 500 MG TAB PO SCH ×2 (08:48→21:50)
[2020-11-16] MEDS: CLOPIDOGREL 75 MG TAB PO SCH (08:48)
[2020-11-16] MEDS: lisinopriL 40 MG TAB PO SCH (08:48)
[2020-11-16] MEDS: ASPIRIN 81 MG CHEW TABLET PO SCH (08:48)
[2020-11-16] MEDS: ACETAMINOPHEN TAB 650MG DOSE (2X325MG) PO PRN (08:49)
[2020-11-16] MEDS: MORPHINE 2 MG/ML 1ML VIAL (J2270) IV PRN ×2 (11:11→16:45)
--- NOTE | 2020-11-16 11:21 | IPNPDOC ---
Text Note Date of Service The patient was seen on 11/16/20. NOTE Subjective: Pt continues to have severe migraine, she stated she has no chest pain or palpitations Objective: GENERAL APPEARANCE: in moderate distress HEENT: no scleral icterus, no JVD, EOMI CARDIOVASCULAR: S1S2 LUNGS: CTA ABDOMEN: soft & not tender w palpitation MUSCULOSKELETAL: no cyanosis, no swelling INTEGUMENT: no generalized pallor NEUROLOGICAL: cranial nerve function from 2-12 intact intact, follows commands, speech not dysarthric Assessment/Plan Patient is 60 years old female with past medical history of bipolar disorder, migraines, hypertension, type 2 diabetes, coronary artery diseases with stents placement presented to the hospital with severe headache. Patient stated that she has been having severe headache, constant 10 out of 10 for past week. Of note patient has been having migraine for years. Patient denied fever, chills, chest pain, palpitations, nausea, vomiting, diarrhea or dysuria. Patient stated that her regular medications for migraine did not alleviate the pain. Patient stated the pain located in the occipital and temporal areas. Also she stated that she developed mild dyspnea. In ED patient was found to have leukocytosis of 13.8, first troponin 0.37, second troponin 0.4, 3d troponin 0.37. EKG showed first-degree AV block, sinus rhythm, left anterior fascicular block. Cardiology team recommended to admit patient for observation for next 24 hours. CTA negative for PE Problems (1) Intractable headache CT head negative for stroke or acute bleed MRI negative for stroke talked Dr White, her regular neurologist, he recommended propranolol 10 mg twice a day by mouth and occipital Botox injection in the outpatient settings. However, on metoprolol pt developed 2 degree heart block. Propranolol on hold for now Pain management (2) Diabetes mellitus Insulin sliding scale Diabetes diet (3) Elevated troponin/ demand ischemia Most likely demand ischemia EKG did not show any new ischemic changes troponin trended down Echo pending Telemetry Continue aspirin, I added statin to her medical regimen I talked to Dr Kimball about elevated troponin, he thinks its demand ischemia 2/2 pain. He recommended to add Plavix and intensify pain management (4) Bipolar disorder Continue home meds (5) Occipital neuralgia Follow-up with Dr. White in the outpatient settings VS,Francisco J, I+O VS, Francisco J, I+O Laboratory Tests 11/16/20 05:38 Vital Signs Date Time Temp Pulse Resp B/P (MAP) Pulse Ox O2 Delivery O2 Flow Rate FiO2 11/16/20 06:00 97.1 67 18 115/63 (80) 94 Room Air 11/15/20 15:20 2.0 I&O- Last 24 Hours up to 6 AM 11/16/20 06:00 Intake Total 740 ml Output Total 0 ml Balance 740 ml LA SOLOMON Nov 16, 2020 11:21
[2020-11-16 14:00] VITALS: BP 126/75
[2020-11-16] MEDS: ENOXAPARIN 40MG/0.4ML SYRINGE (J1650 PER 10MG) SC SCH (21:49)
[2020-11-16] MEDS: fluPHENAZine 5MG TABLET PO SCH (21:50)
[2020-11-16 22:00] VITALS: BP 135/64
[2020-11-16] MEDS: traMADol 50 MG TAB PO PRN (23:06)
[2020-11-17 06:00] VITALS: BP 119/76
[2020-11-17] MEDS: HumaLOG INSULIN (NovoLOG) PER UNIT SC SCH ×4 (07:30→20:28)
[2020-11-17] MEDS: traMADol 50 MG TAB PO PRN ×3 (07:39→18:52)
[2020-11-17] MEDS: MORPHINE 2 MG/ML 1ML VIAL (J2270) IV PRN ×2 (08:52→13:58)
[2020-11-17] MEDS: ATORVASTATIN 20 MG TAB PO SCH (08:52)
[2020-11-17] MEDS: ASPIRIN 81 MG CHEW TABLET PO SCH (08:52)
[2020-11-17] MEDS: TOPIRAMATE (TopAMAX) 100 MG TAB PO SCH ×2 (08:52→20:35)
[2020-11-17] MEDS: GABAPENTIN 300 MG CAP PO SCH ×4 (08:52→20:35)
[2020-11-17] MEDS: DIVALPROEX 500 MG TAB PO SCH ×2 (08:53→20:35)
[2020-11-17] MEDS: BENZTROPINE 2 MG TAB PO SCH ×2 (08:53→20:35)
[2020-11-17] MEDS: CLOPIDOGREL 75 MG TAB PO SCH (08:53)
[2020-11-17] MEDS: lisinopriL 40 MG TAB PO SCH (08:54)
[2020-11-17] MEDS: tiZANidine 4 MG TAB PO PRN ×2 (10:25→20:35)
--- NOTE | 2020-11-17 11:07 | ECGEPIP ---
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
--- NOTE | 2020-11-17 12:40 | ECHO ---
DATE OF PROCEDURE: 11/16/2020 Age: 60 years Gender: Female Height: 65 inches Weight: 190 pounds Body Surface Area: 1.94 m2. Inpatient: [address] [place] [address], room 4215 REFERRING PHYSICIAN: LA SOLOMON M.D. INDICATION: Cardiac dysrhythmia/abnormal EKG/indeterminate troponin I level. MEASUREMENTS: 2D Measurements: RV 2.8 cm LV 4.2 cm Septum 1.2 cm Posterior wall 1.2 cm Aortic Root 3.1 cm LA 4.0 cm LVEF 75% Doppler Measurements: AV 1.3 m/s LVOT 1.1 m/s MV-E 81, A 110, E/A ratio 0.8 Early mitral deceleration time 322 ms E prime medial 5.1, A prime medial 7.1, E prime lateral 5.7 Average E/E prime ratio 15/PCWP 20.5 mmHg PV 1.2 m/s Pulmonary artery acceleration time 143 ms PASP 18 mmHg IVC 1.5 cm COMMENTS: Normal sinus rhythm with right bundle-branch block. M-Mode and Two Dimensional Echocardiography was performed with pulse, continuous wave, color flow, and tissue Doppler studies. Borderline left ventricular hypertrophy with hyperkinetic wall motion. Borderline left atrial enlargement with grade 1 LV diastolic dysfunction and elevated estimated mean left atrial pressure. Normal right heart chamber sizes and motion with normal estimated pulmonary arterial pressure. Normal inferior vena cava (IVC) size and collapse against an elevated central venous pressure at this time. Normal aortic dimensions. Normal-appearing and functioning valvular structures. No apparent intracardiac mass or pericardial effusion. MTDD
[2020-11-17 14:00] VITALS: BP 124/60
[2020-11-17] MEDS ORDERED: KETOROLAC 30 MG/ML 1ML VIAL IV ONE (16:25)
--- NOTE | 2020-11-17 16:27 | IPNPDOC ---
Text Note Date of Service The patient was seen on 11/17/20. NOTE Subjective: Pt complains of severe occipital and parietal head pain. Denies fever, chills, nausea, vomiting diarrhea or dysuria Objective: GENERAL APPEARANCE: in moderate distress HEENT: no scleral icterus, no JVD, EOMI CARDIOVASCULAR: S1S2 LUNGS: CTA ABDOMEN: soft & not tender w palpitation MUSCULOSKELETAL: no cyanosis, no swelling INTEGUMENT: no generalized pallor NEUROLOGICAL: cranial nerve function from 2-12 intact intact, follows commands, speech not dysarthric Assessment/Plan Patient is 60 years old female with past medical history of bipolar disorder, migraines, hypertension, type 2 diabetes, coronary artery diseases with stents placement presented to the hospital with severe headache. Patient stated that she has been having severe headache, constant 10 out of 10 for past week. Of note patient has been having migraine for years. Patient denied fever, chills, chest pain, palpitations, nausea, vomiting, diarrhea or dysuria. Patient stated that her regular medications for migraine did not alleviate the pain. Patient stated the pain located in the occipital and temporal areas. Also she stated that she developed mild dyspnea. In ED patient was found to have leukocytosis of 13.8, first troponin 0.37, second troponin 0.4, 3d troponin 0.37. EKG showed first-degree AV block, sinus rhythm, left anterior fascicular block. Cardiology team recommended to admit patient for observation for next 24 hours. CTA negative for PE Problems (1) Intractable headache CT head negative for stroke or acute bleed MRI negative for stroke talked Dr White, her regular neurologist, he recommended propranolol 10 mg twice a day by mouth and occipital Botox injection in the outpatient settings. However, on metoprolol pt developed 2 degree heart block. Propranolol on hold for now Pain management (2) Diabetes mellitus Insulin sliding scale Diabetes diet (3) Elevated troponin/ demand ischemia Most likely demand ischemia EKG did not show any new ischemic changes troponin trended down Echo showed Borderline left ventricular hypertrophy with hyperkinetic wall motion. Borderline left atrial enlargement with grade 1 LV diastolic dysfunction and elevated estimated mean left atrial pressure. EF 75 % Telemetry Continue aspirin, I added statin to her medical regimen I talked to Dr Kimball about elevated troponin, he thinks its demand ischemia 2/2 pain. He recommended to add Plavix and intensify pain management (4) Bipolar disorder Continue home meds (5) Occipital neuralgia Follow-up with Dr. White in the outpatient settings VS,Francisco J, I+O VS, Francisco J, I+O Vital Signs Date Time Temp Pulse Resp B/P (MAP) Pulse Ox O2 Delivery O2 Flow Rate FiO2 11/17/20 14:08 14 11/17/20 14:00 98.0 85 124/60 (81) 99 Room Air 11/15/20 15:20 2.0 I&O- Last 24 Hours up to 6 AM 11/17/20 06:00 Intake Total 900 ml Output Total 1275 ml Balance -375 ml LA SOLOMON DO Nov 17, 2020 16:27
[2020-11-17] MEDS: fluPHENAZine 5MG TABLET PO SCH (20:35)
[2020-11-17] MEDS: ENOXAPARIN 40MG/0.4ML SYRINGE (J1650 PER 10MG) SC SCH (20:35)
[2020-11-18 05:54] LABS: HEMATOCRIT 40.4 % (36.0-47.0); MEAN CORPUSCULAR HEMOGLOBIN 29.4 pg (27.0-33.0); MEAN CORPUSCULAR HGB CONC 32.2 g/dl (32.0-36.5); MEAN CORPUSCULAR VOLUME 91.4 fl (80.0-96.0); PLATELET COUNT, AUTOMATED 226 10^3/uL (150-450); RED BLOOD COUNT 4.42 10^6/uL (4.00-5.40); WHITE BLOOD COUNT 7.4 10^3/uL (4.0-10.0)
[2020-11-18 06:23] LABS: BLOOD UREA NITROGEN 29 MG/DL (7-18); CALCIUM LEVEL 9.2 MG/DL (8.5-10.1); CARBON DIOXIDE LEVEL 24 MEQ/L (21-32); CHLORIDE LEVEL 108 MEQ/L (98-107); CREATININE FOR GFR 0.99 MG/DL (0.55-1.30); GLOMERULAR FILTRATION RATE > 60.0 (>51); GLUCOSE, FASTING 108 MG/DL (70-100); MAGNESIUM LEVEL 2.1 MG/DL (1.8-2.4); POTASSIUM SERUM 3.9 MEQ/L (3.5-5.1); SODIUM LEVEL 139 MEQ/L (136-145)
[2020-11-18] MEDS: HumaLOG INSULIN (NovoLOG) PER UNIT SC SCH ×2 (07:30→12:00)
[2020-11-18] MEDS: BENZTROPINE 2 MG TAB PO SCH (08:05)
[2020-11-18] MEDS: lisinopriL 40 MG TAB PO SCH (08:05)
[2020-11-18] MEDS: DIVALPROEX 500 MG TAB PO SCH (08:05)
[2020-11-18] MEDS: ATORVASTATIN 20 MG TAB PO SCH (08:05)
[2020-11-18] MEDS: CLOPIDOGREL 75 MG TAB PO SCH (08:05)
[2020-11-18] MEDS: GABAPENTIN 300 MG CAP PO SCH ×2 (08:05→13:36)
[2020-11-18] MEDS: ASPIRIN 81 MG CHEW TABLET PO SCH (08:05)
[2020-11-18] MEDS: TOPIRAMATE (TopAMAX) 100 MG TAB PO SCH (08:06)
[2020-11-18] MEDS: traMADol 50 MG TAB PO PRN (08:06)
[2020-11-18] MEDS ORDERED: ATOR1TAB21 PO (13:01)
[2020-11-18] MEDS ORDERED: CLOP75TA2 PO (13:01)
[2020-11-18] MEDS ORDERED: ACET-897 PO (13:01)
[2020-11-18] MEDS ORDERED: TRAM50TA2 PO (13:01)
--- NOTE | 2020-11-18 17:47 | DS.PDOC ---
Discharge Summary General Date of Admission Nov 17, 2020 at 16:18 Date of Discharge 11/18/20 Discharge Summary PROCEDURES PERFORMED DURING STAY: [None]. ADMITTING DIAGNOSES: Intractable headache Diabetes mellitus Elevated troponin/ demand ischemia Bipolar disorder Occipital neuralgia DISCHARGE DIAGNOSES: Intractable headache Diabetes mellitus Elevated troponin/ demand ischemia Bipolar disorder Occipital neuralgia COMPLICATIONS/CHIEF COMPLAINT: Chronic Migraine, Dm, Elevated Troponin. HISTORY OF PRESENT ILLNESS: Patient is 60 years old female with past medical history of bipolar disorder, migraines, hypertension, type 2 diabetes, coronary artery diseases with stents placement presented to the hospital with severe headache. Patient stated that she has been having severe headache, constant 10 out of 10 for past week. Of note patient has been having migraine for years. Patient denied fever, chills, chest pain, palpitations, nausea, vomiting, diarrhea or dysuria. Patient stated that her regular medications for migraine did not alleviate the pain. Patient stated the pain located in the occipital and temporal areas. Also she stated that she developed mild dyspnea. In ED patient was found to have leukocytosis of 13.8, first troponin 0.37, second troponin 0.4, 3d troponin 0.37. EKG showed first-degree AV block, sinus rhythm, left anterior fascicular block. Cardiology team recommended to admit patient for observation for next 24 hours. CTA negative for PE HOSPITAL COURSE: During hospital stay following issue addressed Assessment/Plan Patient is 60 years old female with past medical history of bipolar disorder, migraines, hypertension, type 2 diabetes, coronary artery diseases with stents placement presented to the hospital with severe headache. Patient stated that she has been having severe headache, constant 10 out of 10 for past week. Of note patient has been having migraine for years. Patient denied fever, chills, chest pain, palpitations, nausea, vomiting, diarrhea or dysuria. Patient stated that her regular medications for migraine did not alleviate the pain. Patient stated the pain located in the occipital and temporal areas. Also she stated that she developed mild dyspnea. In ED patient was found to have leukocytosis of 13.8, first troponin 0.37, second troponin 0.4, 3d troponin 0.37. EKG showed first-degree AV block, sinus rhythm, left anterior fascicular block. Cardiology team recommended to admit patient for observation for next 24 hours. CTA negative for PE Problems (1) Intractable headache CT head negative for stroke or acute bleed MRI negative for stroke talked Dr White, her regular neurologist, he recommended propranolol 10 mg twice a day by mouth and occipital Botox injection in the outpatient settings. However, on metoprolol pt developed 2 degree heart block. Propranolol was on hold for now Pain management (2) Diabetes mellitus Insulin sliding scale Diabetes diet (3) Elevated troponin/ demand ischemia Most likely demand ischemia EKG did not show any new ischemic changes troponin trended down Echo showed Borderline left ventricular hypertrophy with hyperkinetic wall motion. Borderline left atrial enlargement with grade 1 LV diastolic dysfunction and elevated estimated mean left atrial pressure. EF 75 % Telemetry Continue aspirin, I added statin to her medical regimen I talked to Dr Kimball about elevated troponin, he thinks its demand ischemia 2/2 pain. He recommended to add Plavix and intensify pain management (4) Bipolar disorder Continue home meds (5) Occipital neuralgia Follow-up with Dr. White in the outpatient settings DISCHARGE MEDICATIONS: Please see below. ALLERGIES: Please see below. PHYSICAL EXAMINATION ON DISCHARGE: VITAL SIGNS: Please see below. GENERAL APPEARANCE: in moderate distress HEENT: no scleral icterus, no JVD, EOMI CARDIOVASCULAR: S1S2 LUNGS: CTA ABDOMEN: soft & not tender w palpitation MUSCULOSKELETAL: no cyanosis, no swelling INTEGUMENT: no generalized pallor NEUROLOGICAL: cranial nerve function from 2-12 intact intact, follows commands, speech not dysarthric LABORATORY DATA: Please see below. IMAGING: [facility] NAME: ANISH OHARA DATE OF : 1960 BUSINESS NUMBER: [id number] AGE: 60 SEX: F REPORT #: [id number] ROOM: [place] TECHNOLOGIST: BETTY DOCTOR: LA SOLOMON DO Ordered for Date&Time: 11/15/20 1415 cc: [~ rep ct ivnm] Service Date&Time: 11/15/20 1552 This report is in Signed status. Interpretation performed by [facility]. Thank you for having your radiology procedures performed at [facility] RADIOLOGY REPORT Date&Time printed: [~ rep prt dt last] [~ rep prt tm last] Page 2 of 2 [place] [id number] RADIOLOGY REPORT This report is in Signed status. Interpretation performed by [facility]. Thank you for having your radiology procedures performed at [facility] RADIOLOGY REPORT Date&Time printed: [~ rep prt dt last] [~ rep prt tm last] Page 1 of 2 PROCEDURE INFORMATION: Exam: MR Head Without Contrast Exam date and time: 11/15/2020 3:52 PM Age: 60 years old Clinical indication: Weakness, extremity and weakness, facial; Left; Patient HX: Weakness in lt side of body and face, slurred speech and confusion that has since subsided. ; Additional info: Stroke TECHNIQUE: Imaging protocol: MR of the head without contrast. COMPARISON: MRI-Brain without Contrast 05/12/2020 12:00 PM FINDINGS: Brain: Mild nonspecific T2/FLAIR hyperintensities of the periventricular and deep subcortical white matter, most likely secondary to chronic small vessel ischemic change. No intracranial hemorrhage or extra-axial fluid collection. No evidence of mass effect or midline shift. No restricted diffusion to suggest acute infarct. Cerebral ventricles: Mild prominence of the ventricles and sulci, likely attributed to parenchymal volume loss. Bones/joints: Unremarkable. Paranasal sinuses: Normal as visualized. No acute sinusitis. Mastoid air cells: Chronic opacified inferior left mastoid air cells. Orbital cavity: Unremarkable. Soft tissues: Unremarkable. IMPRESSION: 1. No acute intracranial pathology. 2. Chronic findings, as above. Electronically signed by: Brenton Avila On 11/15/2020 16:15:06 PM DD: BRENTON AVLIA MD 11/15/20 1552 DT: ZION 11/15/20 1615 DS: BACILIO 11/15/20 1615 [~ rep ct labl] PROGNOSIS: fair ACTIVITY: [As tolerated]. DIET: cardiac DISPOSITION: 01 Home, Self-Care. ITEMS TO FOLLOWUP ON ON OUTPATIENT: Follow-up with PCP and neurologist DISCHARGE CONDITION: [Stable]. TIME SPENT ON DISCHARGE: 30 minutes. Vital Signs/I&Os Vital Signs Date Time Temp Pulse Resp B/P (MAP) Pulse Ox O2 Delivery O2 Flow Rate FiO2 11/18/20 08:36 18 11/18/20 06:00 97.9 58 95 Room Air 11/17/20 14:00 124/60 (81) 11/15/20 15:20 2.0 I&O- Last 24 Hours up to 6 AM 11/18/20 06:00 Intake Total 1260 ml Output Total 1250 ml Balance 10 ml Laboratory Data Labs 24H Laboratory Tests 2 11/17/20 20:16: Bedside Glucose (Misc Panel) 83 11/18/20 05:38: Nucleated Red Blood Cells % (auto) 0.0, Anion Gap 7L, Glomerular Filtration Rate > 60.0, Calcium Level 9.2, Magnesium Level 2.1 11/18/20 11:51: Bedside Glucose (Misc Panel) 145H CBC/BMP Laboratory Tests 11/18/20 05:38 FSBS Laboratory Tests Test 11/17/20 20:16 11/18/20 11:51 Range/Units Bedside Glucose (Misc Panel) 83 145 70-105 MG/DL Discharge Medications Scheduled Aspirin (Children's Aspirin) 81 Mg Tab.chew, 81 MG PO DAILY Atorvastatin Calcium (Atorvastatin Calcium) 20 Mg Tablet, 40 MG PO DAILY Benztropine Mesylate (Benztropine Mesylate) 2 Mg Tablet, 2 MG PO BID, (Reported) Clopidogrel Bisulfate (Clopidogrel) 75 Mg Tablet, 75 MG PO DAILY Divalproex Sodium (Divalproex Sodium) 500 Mg Tablet.dr, 500 MG PO BID, (Reported) Fluphenazine HCl (Fluphenazine HCl) 5 Mg Tablet, 5 MG PO QHS, (Reported) Gabapentin (Gabapentin) 300 Mg Capsule, 300 MG PO QID, (Reported) Lisinopril (Lisinopril) 40 Mg Tablet, 40 MG PO DAILY, (Reported) Topiramate (Topiramate) 100 Mg Tablet, 100 MG PO BID, (Reported) Scheduled PRN Acetaminophen (Tylenol Extra Strength) 500 Mg Tablet, 1,000 MG PO BID PRN for HEADACHE OR PAIN Diclofenac Sodium (Diclofenac Sodium) 1% 100GM Gel..gram., 1 DOSE TOP BID PRN for PAIN, (Reported) USES ON BACK OF NECK OR LEFT HIP NEEDED Diphenhydramine HCl (Diphenhydramine HCl) 25 Mg Capsule, 25 MG PO QHS PRN for INSOMNIA, (Reported) Tizanidine HCl (Tizanidine HCl) 4 Mg Tablet, 4 MG PO TID PRN for MUSCLE SPASMS, (Reported) Tramadol HCl (Tramadol HCl) 50 Mg Tablet, 50 MG PO Q4HP PRN for MODERATE PAIN (PS 5-7) Allergies Coded Allergies: Tetanus Vaccines and Toxoid (Verified Allergy, Unknown, 06/26/20) metoprolol (Verified Adverse Reaction, Severe, SECOND DEGREE HEART BLOCK, 11/15/20) LA SOLOMON DO Nov 18, 2020 17:47
== END 2020-11-18 14:35 | disposition home or self-care (01) | DRG 552 ==
LOC: EDBD 06:58 → M ED 06:58 → M ED INP 14:15 → ENRESERV 14:36 → M MSPAV 16:07 → OBSVTOIN 11-17 16:18
PROVIDERS: ADMIT Internal Medicine; ATTEND Internal Medicine
DX: M54.81 Occipital neuralgia (principal); I24.8 Other forms of acute ischemic heart disease; F31.81 Bipolar II disorder; E11.9 Type 2 diabetes mellitus without complications; R51.9 Headache, unspecified; I25.10 Atherosclerotic heart disease of native coronary artery without angina pectoris; Z95.2 Presence of prosthetic heart valve; I44.0 Atrioventricular block, first degree; I44.4 Left anterior fascicular block; Z79.899 Other long term (current) drug therapy; Z79.82 Long term (current) use of aspirin; Z88.8 Allergy status to other drugs, medicaments and biological substances

== ENCOUNTER 2020-11-24 14:33 | Inpatient (IN) | payer MEDICARE, MEDICAID ==
[~2020-11-24] VITALS: Ht 165.1 cm; Wt 88.1 kg
[~2020-11-24 14:33] MED LIST changes: +CLOB10TA PO; +CLOP75TA2 PO; +DIVA500T94 PO; +SUMA100T2 PO; +TIZA4TAB4 PO; +TOPI100T9 PO; +TRAM50TA2 PO; +ZONI100C17 PO
[2020-11-24] MEDS ORDERED: MORPHINE 10 MG/ML 1ML VIAL (J2270) IM ONE (14:55)
[2020-11-24] MEDS ORDERED: ONDANSETRON 4 MG ORAL DISINTEGRATING TAB PO ONE (14:55)
[2020-11-24] MEDS ORDERED: ACETAMINOPHEN 325 MG TAB PO ONE (16:55)
[2020-11-24 17:29] LABS: HEMOGLOBIN 13.6 g/dl (12.0-15.5); MEAN CORPUSCULAR HEMOGLOBIN 29.4 pg (27.0-33.0); MEAN CORPUSCULAR HGB CONC 32.4 g/dl (32.0-36.5); MEAN CORPUSCULAR VOLUME 90.7 fl (80.0-96.0); PLATELET COUNT, AUTOMATED 263 10^3/uL (150-450); RED BLOOD COUNT 4.63 10^6/uL (4.00-5.40)
[2020-11-24 18:03] LABS: ACETAMINOPHEN LEVEL < 2.0 UG/ML (10.0-30.0); ALBUMIN 3.2 GM/DL (3.2-5.2); ALT/SGPT 12 U/L (12-78); BILIRUBIN,DIRECT < 0.1 MG/DL (0.0-0.2); BILIRUBIN,TOTAL 0.1 MG/DL (0.2-1.0); BLOOD UREA NITROGEN 12 MG/DL (7-18); CALCIUM LEVEL 9.7 MG/DL (8.5-10.1); CARBON DIOXIDE LEVEL 29 MEQ/L (21-32); CHLORIDE LEVEL 109 MEQ/L (98-107); CREATININE FOR GFR 0.83 MG/DL (0.55-1.30); ETHYL ALCOHOL (ETHANOL) < 0.003 % (0.000-0.010); GLOMERULAR FILTRATION RATE > 60.0 (>51); GLUCOSE, FASTING 107 MG/DL (70-100); POTASSIUM SERUM 4.5 MEQ/L (3.5-5.1); SALICYLATE LEVEL 4.5 MG/DL (5.0-30.0); SODIUM LEVEL 143 MEQ/L (136-145); TOTAL PROTEIN 6.9 GM/DL (6.4-8.2)
[2020-11-24 18:04] LABS: RSV AMPLIFICATION NEGATIVE (NEGATIVE)
[2020-11-24 19:32] LABS: AMPHETAMINES LEVEL URINE NEGATIVE (NEGATIVE); BARBITURATES URINE NEGATIVE (NEGATIVE); BENZODIAZEPINES URINE NEGATIVE (NEGATIVE); CANNABINOIDS URINE NEGATIVE (NEGATIVE); COCAINE METABOLITE URINE NEGATIVE (NEGATIVE); METHADONE URINE NEGATIVE (NEGATIVE); OPIATES URINE POSITIVE (NEGATIVE); PHENCYCLIDINE URINE NEGATIVE (NEGATIVE)
[2020-11-24] MEDS ORDERED: ASPI81TA26 PO (20:28)
[2020-11-24] MEDS ORDERED: PLAV1TAB2 PO (20:28)
[2020-11-24] MEDS ORDERED: ATOR1TAB21 PO (20:28)
[2020-11-24] MEDS ORDERED: ACET-683 PO (20:28)
[2020-11-24] MEDS ORDERED: COMMENTS (20:29)
[2020-11-24] MEDS ORDERED: diphenhydrAMINE 25MG CAP PO PRN (21:10)
[2020-11-24] MEDS ORDERED: OLANZapine ORAL DISINTEGRATING TAB 5MG PO PRN (21:10)
[2020-11-24] MEDS ORDERED: MAALOX 30 ML SUSP *UDC PO PRN (21:10)
[2020-11-24] MEDS ORDERED: NICOTINE 21MG/24HR 1 EA TRANSDERMAL TD PRN (21:10)
[2020-11-24] MEDS ORDERED: cloNIDine 0.1MG TABLET PO ONE (21:35)
[2020-11-24 22:22] VITALS: BP 168/72
[2020-11-25] MEDS: ACETAMINOPHEN TAB 650MG DOSE (2X325MG) PO PRN ×3 (01:17→16:07)
[2020-11-25 01:32] VITALS: BP 135/75
[2020-11-25] MEDS: fluPHENAZine 5MG TABLET PO SCH ×2 (04:18→21:00)
[2020-11-25] MEDS: ASPIRIN 81MG ENTERIC TABLET PO SCH (10:27)
[2020-11-25] MEDS: BENZTROPINE 1 MG TAB PO SCH ×2 (10:27→21:00)
[2020-11-25] MEDS: TOPIRAMATE (TopAMAX) 100 MG TAB PO SCH ×2 (10:27→21:00)
[2020-11-25] MEDS: DIVALPROEX 500 MG TAB PO SCH ×2 (10:27→21:00)
[2020-11-25] MEDS: CLOPIDOGREL 75 MG TAB PO SCH (10:27)
[2020-11-25] MEDS: GABAPENTIN 300 MG CAP PO SCH ×3 (10:27→21:00)
[2020-11-25] MEDS: ATORVASTATIN 20 MG TAB PO SCH (10:28)
[2020-11-25] MEDS: lisinopriL 40 MG TAB PO SCH (10:36)
[2020-11-25] MEDS ORDERED: FLUoxetine 10 MG CAP PO ONE (10:50)
[2020-11-25] MEDS ORDERED: GLUCAGON INJ 1MG VIAL SC PRN (15:25)
[2020-11-25] MEDS ORDERED: GLUCOSE 4GM CHEW TABLET PO PRN (15:25)
[2020-11-25] MEDS ORDERED: DEXTROSE 50% 50 ML SYRINGE IV PRN (15:25)
--- NOTE | 2020-11-25 15:31 | HPEPDOC ---
General Date of Admission Nov 24, 2020 at 21:09 Date of Service: Nov 25, 2020 Chief Complaint The patient is a 60-year-old female admitted with a reason for visit of Unspecified Mood Disorder. Source: Patient Exam Limitations: No limitations History of Present Illness Patient is 60 years old female with past medical history of bipolar disorder, migraines, hypertension, type 2 diabetes, coronary artery diseases with stents placement presented to the hospital with suicidal ideation. Patient has a history of chronic headache with multiple previous admissions. Patient reported that she told her mom that she wanted to hurt herself because of ongoing headache.Of note patient has been having migraine for years. Patient denied fever, chills, chest pain, palpitations, nausea, vomiting, diarrhea or dysuria. Patient stated that her regular medications for migraine did not alleviate the pain. Patient stated the pain located in the occipital and temporal areas. Neurologist Dr. White follows her Home Medications Scheduled Aspirin (Aspirin EC) 81 Mg Tablet.dr, 81 MG PO DAILY, (Reported) Atorvastatin Calcium (Atorvastatin Calcium) 20 Mg Tablet, 40 MG PO DAILY, (Repo rted) Benztropine Mesylate (Benztropine Mesylate) 2 Mg Tablet, 2 MG PO BID, (Reported) Clopidogrel Bisulfate (Plavix) 75 Mg Tablet, 75 MG PO DAILY, (Reported) Divalproex Sodium (Divalproex Sodium) 500 Mg Tablet.dr, 500 MG PO BID, (Reported) Fluphenazine HCl (Fluphenazine HCl) 5 Mg Tablet, 5 MG PO QHS, (Reported) Gabapentin (Gabapentin) 300 Mg Capsule, 600 MG PO TID, (Reported) Lisinopril (Lisinopril) 40 Mg Tablet, 40 MG PO DAILY, (Reported) Topiramate (Topiramate) 100 Mg Tablet, 100 MG PO BID, (Reported) Scheduled PRN Acetaminophen (Acetaminophen) 500 Mg Tablet, 1,000 MG PO BID PRN for PAIN, (Reported) Diclofenac Sodium (Diclofenac Sodium) 1% 100GM Gel..gram., 1 DOSE TOP BID PRN for PAIN, (Reported) USES ON BACK OF NECK OR LEFT HIP NEEDED Diphenhydramine HCl (Diphenhydramine HCl) 25 Mg Capsule, 25 MG PO QHS PRN for INSOMNIA, (Reported) Tizanidine HCl (Tizanidine HCl) 4 Mg Tablet, 4 MG PO TID PRN for MUSCLE SPASMS, (Reported) Miscellaneous Medications [Comments] , (Reported) MED LIST COMPILED WITH EXTERNAL MED HISTORY Allergies Coded Allergies: Tetanus Vaccines and Toxoid (Verified Allergy, Unknown, 06/26/20) metoprolol (Verified Adverse Reaction, Severe, SECOND DEGREE HEART BLOCK, 11/15/20) Past Medical History Medical History Migraines Chronic neck and back pain / C5-7 fusion Chronic HTN NIDM2 CAD w placement of 2 stents Bipolar II Disorder MDD Family History I personally reviewed family history and found not pertinent Social History * Smoker: current smoker Alcohol: Denies Drugs: denies A-FIB/CHADSVASC A-FIB History Current/History of A-Fib/PAF?: No Current PO Anticoag Therapy: No Review of Systems Constitutional: Denies: Chills, Fever Eyes: Denies: Pain ENT: Reports: Head Aches Skin: Denies: Rash, Lesions Pulmonary: Denies: Dyspnea Cardiovascular: Denies: Chest Pain Gastrointestinal: Denies: Nausea Genitourinary: Denies: Dysuria Hematologic: Denies: Bruising, Bleeding Excessively Endocrine: Denies: Polydipsia, Polyphagia Musculoskeletal: Denies: Neck Pain Neurological: Denies: Weakness Psych: Reports: Depression Physical Examination General Exam: Positive: Alert ENT Exam: Positive: Atraumatic Neck Exam: Positive: Supple; Negative: JVD Chest Exam: Positive: Clear to auscultation Heart Exam: Positive: Rate Normal Telemetry: Positive: No significant arrhythmia Abdomen Exam: Positive: Normal bowel sounds Extremity Exam: Negative: Clubbing Skin Exam: Positive: Nl turgor and temperature Neuro Exam: Positive: Normal Gait Psych Exam: Positive: Oriented x 3 Vital Signs Vital Signs Date Time Temp Pulse Resp B/P (MAP) Pulse Ox O2 Delivery O2 Flow Rate FiO2 11/25/20 01:32 97.7 69 18 135/75 (95) 95 Room Air Laboratory Data Labs 24H Laboratory Tests 2 11/24/20 17:16: Nucleated Red Blood Cells % (auto) 0.0, Anion Gap 5L, Glomerular Filtration Rate > 60.0, Calcium Level 9.7, Total Bilirubin 0.1L, Direct Bilirubin < 0.1, Aspartate Amino Transf (AST/SGOT) < 3L, Alanine Aminotransferase (ALT/SGPT) 12, Alkaline Phosphatase 74, Total Protein 6.9, Albumin 3.2, Albumin/Globulin Ratio 0.9L, Thyroid Stimulating Hormone (TSH) 1.260, Salicylates Level 4.5L, Acetaminophen Level < 2.0L, Ethyl Alcohol Level < 0.003, Coronavirus (COVID-19 )(PCR) NEGATIVE, Influenza Type A (RT-PCR) NEGATIVE, Influenza Type B (RT-PCR) NEGATIVE, Respiratory Syncytial Virus (PCR) NEGATIVE 11/24/20 18:47: Urine Opiates Screen POSITIVEH, Urine Methadone Screen NEGATIVE, Urine Barbiturates Screen NEGATIVE, Urine Phencyclidine Screen NEGATIVE, Urine Amphetamines Screen NEGATIVE, Urine Benzodiazepines Screen NEGATIVE, Urine Cocaine Metabolite Screen NEGATIVE, Urine Cannabinoids Screen NEGATIVE CBC/BMP Laboratory Tests 11/24/20 17:16 Assessment/Plan Patient is 60 years old female with past medical history of bipolar disorder, migraines, hypertension, type 2 diabetes, coronary artery diseases with stents placement presented to the hospital with suicidal ideation. Patient has a history of chronic headache with multiple previous admissions. Patient reported that she told her mom that she wanted to hurt herself because of ongoing headache.Of note patient has been having migraine for years. Patient denied fever, chills, chest pain, palpitations, nausea, vomiting, diarrhea or dysuria. Patient stated that her regular medications for migraine did not alleviate the pain. Patient stated the pain located in the occipital and temporal areas. Neurologist Dr. White follows her Problems (1) Chronic migraine Status: Acute Problem Text: Continue home medications Dr. White recommended Botox injection in order to alleviate her pain in the outpatient settings. However patient didn't see a neurologist since last admission Follow-up with neurologist in the outpatient settings (2) Suicidal ideation Status: Acute Problem Text: defer treatment to psych team (3) Bipolar disorder Status: Chronic Problem Text: defer treatment to psych team (4) Coronary artery disease Status: Chronic Problem Text: Continue aspirin, statin (5) Diabetes mellitus Status: Chronic Problem Text: Insulin sliding scale Diabetes diet Glucose level under control Plan / VTE VTE Prophylaxis Ordered?: No VTE Exclusion Mechanical Proph: Low Risk for VTE LA SOLOMON DO Nov 25, 2020 15:30
[2020-11-25 16:46] VITALS: BP 160/84
--- NOTE | 2020-11-25 17:21 | MHHPEPDOC ---
General Date Of Admission: Nov 25, 2020 Legal Status: 9.39 Chief Complaint Headaches, Pain, Panic Attacks" History of Present Illness HISTORY OF THE PRESENT ILLNESS: Patient is a 60 -year-old , female, who . * Pt contacted EMS today due to having a severe headache. She was recently hospitalized 11/17/20 as a medical admission due to her "intractable headache" and was discharged 11/18/20. Headache became severe again, therefore contacted EMS. During PA interview, she allegedly told PA she was feeling suicidal, therefore was referred for a MHE. Chief Complaint * pt states, "I told them I was feeling suicidal 2 days ago, not today." Pt reports a long hx of Occipital Neuralgia, was recently discharged from [facility] due to intractable pain. States her pain was controlled while she was inpt, however when she returned home her pain returned. She suspects it is due from her cigarette addiction which exacerbates her symptoms. Pt admits she is unable to quit smoking without assistance. Pt adamantly denies SI to TW, admits expressing SI to RN and PA and states "it was 2 days ago." Other stressors include recently losing her Uncle and is Tuesday. Spoke to PA who reports pt expressed SI during their interview today, but s he did not disclose plan. Pt appears to minimizing her suicidal threat she expressed earlier today. Spoke to Mother who reports pt expressed SI with plan to OD yesterday and stated, "I just don't know which medication would do the trick." Mother is requesting hospitalization due to not able to help her any longer due to her own medical issue and fears she will attempt suicide if discharged. My interview with the patient revealed the following: Patient states I'm having panic attacks and pain. I need to stop smoking. I have pain in my head. Patient states she's been followed by a neurologist. Patient states she sees a [facility] outpatient psychiatry. Patient states I will blow up. She states I feel so much pressure everywhere. I have pain everywhere. My body is breaking apart. My blood pressure is too high. I'm afraid I will I'm in a lot of pain. I am out of breath. I have panic attacks 4-5 times a day. My medications are all wrong. I used to take lithium and Prolixin. I have been taking Depakote one year and I don't like it. I am so sick. My head is cracking my breathing is difficult. My spine is cracking my body snaps. She states she has had these symptoms for 6 months. She states, "my mother thinks I'm crazy." She has no therapist. She is scared. She is panicking. She feels anxiety but she denies hallucinations, delusions, obsessions, compulsions or ph obias. She lives alone in [place] with her cat. Her mother lives in [place]. 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 Her legal history is negative. Her drug history is negative. Alcohol history is negative. She sees Dr. White, her neurologist. She has a 12th grade education. She was once. Her from her 20 years ago. They were for [address] Zaheer Guillen. She recently lost an uncle Psychiatric Review of Systems Depression (2 or more weeks): depressed mood, suicidal thoughts Raiza (4 or more days of): denies Psychosis: denies PTSD: denies Anxiety: situational anxiety, panic attacks Anxiety/ 6 months or more of: restlessness, keyed up, irritability Past Psychiatric History Previous Psychiatric Diagnosis: Numerous previous diagnoses and inpatient hospitalization Previous Psychiatric Admissions: As above. Suicide Attempts:, None. Psychiatric Follow-up: Presently using tele-psychiatry with Dr Lynn. Psychiatric medications: Has used many medications. Presently, Prolixin and Depakote. Past Medical History Medical Problems , Hypertension, diabetes Head Injury: No Seizures: No Hospitalizations: Yes Surgeries: No Family Medical/Psychiatric HX Psychiatric Disorders: No Addiction: No Suicide Attemps/Completions: No Addiction History nicotine Social History Childhood: Abuse/Trauma: Current Living Situation lives alone. [place]:. Education: High school education. 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 Social Support:. Mother. Legal: Negative. Marital: . Mental Status Examination General Appearance: unkempt Build: average Demeanor: preoccupied, very figety Eye Contact: avoidant Activity: agitated Behavior: cooperative Speech: rapid Mood: depressed, anxious, irritable Affect: labile, anxious, disorganized Thought Process: depressed Thought Content (Delusions): none reported Thought Content (Other): appropriate Thought Content (Aggressive): none reported Perception (Hallucinations): none reported Perception (Other): none reported Cognition (Impairment of): none reported Cognition(Intelligence Est.): average Oriented: Awake, Alert, Oriented times three Insight: poor Judgment: Poor Psychosis: Denies Diagnoses Situational anxiety, panic attacks A-FIB/CHADSVASC A-FIB History Current/History of A-Fib/PAF?: No Current PO Anticoag Therapy: No Age/Risk Factor Scoring CHADSVASC: CHADSVASC Response (Comments) Value Age Risk Factor Age < 65 years old 0 Gender Risk Factor Female 1 Hx of CHF No 0 Hx of HTN Yes 1 Hx of Stroke/TIA/or VTE No 0 Hx of Diabetes Yes 1 Hx of Vascular Disease No 0 Total 3 Treatment Treatment ordered: NONE Initial Treatment Plan 1. Patient was admitted on a [9.39] status. 2. Complete history was obtained. 3. With patients permission, family will be contacted and database will be expanded. 4. Patients medication regimen will be reviewed and changed accordingly. 5. Patient will be provided with protected environment. 6. Patient will be treated with individual, group, and milieu therapies. 7. Patient will receive supportive psych-education. 8. Discharge planning will commence immediately. 9. Outpatient follow-up treatment will be strongly recommended. 10. The initial treatment plan will focus initially on: * Depression. * Risk for suicide. ESTIMATED LENGTH OF STAY: - DAYS. TIME SPENT COUNSELING AND COORDINATING INITIAL CARE: minutes. Ordered/Pending Vital Signs Vital Signs Date Time Temp Pulse Resp B/P (MAP) Pulse Ox O2 Delivery O2 Flow Rate FiO2 11/25/20 16:46 98.2 66 18 160/84 (109) 94 Room Air Laboratory Data 24H Labs Laboratory Tests 2 11/24/20 17:16: Nucleated Red Blood Cells % (auto) 0.0, Anion Gap 5L, Glomerular Filtration Rate > 60.0, Calcium Level 9.7, Total Bilirubin 0.1L, Direct Bilirubin < 0.1, Aspartate Amino Transf (AST/SGOT) < 3L, Alanine Aminotransferase (ALT/SGPT) 12, Alkaline Phosphatase 74, Total Protein 6.9, Albumin 3.2, Albumin/Globulin Ratio 0.9L, Thyroid Stimulating Hormone (TSH) 1.260, Salicylates Level 4.5L, Acetaminophen Level < 2.0L, Ethyl Alcohol Level < 0.003, Coronavirus (COVID- 19)(PCR) NEGATIVE, Influenza Type A (RT-PCR) NEGATIVE, Influenza Type B (RT-PCR) NEGATIVE, Respiratory Syncytial Virus (PCR) NEGATIVE 11/24/20 18:47: Urine Opiates Screen POSITIVEH, Urine Methadone Screen NEGATIVE, Urine Barbiturates Screen NEGATIVE, Urine Phencyclidine Screen NEGATIVE, Urine Amphetamines Screen NEGATIVE, Urine Benzodiazepines Screen NEGATIVE, Urine Cocaine Metabolite Screen NEGATIVE, Urine Cannabinoids Screen NEGATIVE CBC/BMP Laboratory Tests 11/24/20 17:16 Medications Scheduled Aspirin (Aspirin EC) 81 Mg Tablet.dr, 81 MG PO DAILY, (Reported) Atorvastatin Calcium (Atorvastatin Calcium) 20 Mg Tablet, 40 MG PO DAILY, (Reported) Benztropine Mesylate (Benztropine Mesylate) 2 Mg Tablet, 2 MG PO BID, (Reported) Clopidogrel Bisulfate (Plavix) 75 Mg Tablet, 75 MG PO DAILY, (Reported) Divalproex Sodium (Divalproex Sodium) 500 Mg Tablet.dr, 500 MG PO BID, (Reported) Fluphenazine HCl (Fluphenazine HCl) 5 Mg Tablet, 5 MG PO QHS, (Reported) Gabapentin (Gabapentin) 300 Mg Capsule, 600 MG PO TID, (Reported) Lisinopril (Lisinopril) 40 Mg Tablet, 40 MG PO DAILY, (Reported) Topiramate (Topiramate) 100 Mg Tablet, 100 MG PO BID, (Reported) Scheduled PRN Acetaminophen (Acetaminophen) 500 Mg Tablet, 1,000 MG PO BID PRN for PAIN, (Reported) Diclofenac Sodium (Diclofenac Sodium) 1% 100GM Gel..gram., 1 DOSE TOP BID PRN for PAIN, (Reported) USES ON BACK OF NECK OR LEFT HIP NEEDED Diphenhydramine HCl (Diphenhydramine HCl) 25 Mg Capsule, 25 MG PO QHS PRN for INSOMNIA, (Reported) Tizanidine HCl (Tizanidine HCl) 4 Mg Tablet, 4 MG PO TID PRN for MUSCLE SPASMS, (Reported) Miscellaneous Medications [Comments] , (Reported) MED LIST COMPILED WITH EXTERNAL MED HISTORY Allergies Coded Allergies: Tetanus Vaccines and Toxoid (Verified Allergy, Unknown, 06/26/20) metoprolol (Verified Adverse Reaction, Severe, SECOND DEGREE HEART BLOCK, 11/15/20) JADA CHERRY MD Nov 25, 2020 17:21
[2020-11-25] MEDS: HumaLOG INSULIN (NovoLOG) PER UNIT SC SCH ×2 (17:26→21:00)
[2020-11-26 06:31] VITALS: BP 149/65
[2020-11-26] MEDS: HumaLOG INSULIN (NovoLOG) PER UNIT SC SCH ×4 (06:49→21:00)
[2020-11-26] MEDS: tiZANidine 4 MG TAB PO PRN ×2 (08:31→21:06)
[2020-11-26] MEDS: GABAPENTIN 300 MG CAP PO SCH ×3 (08:32→21:06)
[2020-11-26] MEDS: ACETAMINOPHEN TAB 650MG DOSE (2X325MG) PO PRN ×3 (08:32→21:10)
[2020-11-26] MEDS: ASPIRIN 81MG ENTERIC TABLET PO SCH (08:32)
[2020-11-26] MEDS: DIVALPROEX 500 MG TAB PO SCH ×2 (08:32→21:06)
[2020-11-26] MEDS: TOPIRAMATE (TopAMAX) 100 MG TAB PO SCH ×2 (08:33→21:06)
[2020-11-26] MEDS: CLOPIDOGREL 75 MG TAB PO SCH (08:33)
[2020-11-26] MEDS: lisinopriL 40 MG TAB PO SCH (08:33)
[2020-11-26] MEDS: BENZTROPINE 1 MG TAB PO SCH (08:33)
[2020-11-26] MEDS: ATORVASTATIN 20 MG TAB PO SCH (08:33)
[2020-11-26] MEDS ORDERED: FLUoxetine 10 MG CAP PO SCH (09:00)
--- NOTE | 2020-11-26 13:12 | MHIPNPDOC ---
[facility] Progress Note Progress Note DATE OF SERVICE: 11/26/20 HISTORY: 60-year-old female who complains of panic attacks associated with difficulty breathing and numerous somatic complaints. She states to me today that the medications she came in on prescribed by , that being Prolixin and Cogentin, she did not want them and said he was discontinuing them. She was tearful and breathing heavily and also scared that her mother fears that patient will lose her apartment.. She is concerned that after all of these years that she is still unwell VITAL SIGNS: See below. NEW TEST RESULTS: None. CURRENT MEDICATIONS: See below. MENTAL STATUS EXAMINATION: Patient is a 60-year old female, who is, had repetitive admissions with numerous diagnoses. Speech: Is, shaky. Language skills are. No gross disturbance. Thought processes including:, Panic, sadness, tearfulness, fear. Thought content: As above. Abstract reasoning, and computation: Able to abstract. Description of associations:. No loose association. Description of abnormal or psychotic thoughts:. No psychotic thought. Judgment: Fair. Insight:, Limited. Orientation: 3. Recent and remote memory: Intact. Attention span and concentration: Distracted. Language:. No gross disturbance. Fund of knowledge: Reasonable. Mood: Labile. Affect:, Anxious. DIAGNOSES: 1. Depression with panic attack. 2., General anxiety. 3. None. ASSESSMENT: As above MANAGEMENT PLAN:. Discontinue Prolixin and Cogentin. Will add Prozac and increase the dose. TIME SPENT: 25 minutes. Vital Signs Vital Signs Date Time Temp Pulse Resp B/P (MAP) Pulse Ox O2 Delivery O2 Flow Rate FiO2 11/26/20 06:31 98.5 65 18 149/65 (93) 96 Room Air Laboratory Data 24H Labs Laboratory Tests 2 11/25/20 17:22: Bedside Glucose (Misc Panel) 139H 11/26/20 06:03: Bedside Glucose (Misc Panel) 125H 11/26/20 11:39: Bedside Glucose (Misc Panel) 119H Current Medications Current Medications Medications (Trade) Dose Ordered Sig/Rao Route PRN Reason Start Time Stop Time Status Last Admin Dose Admin Acetaminophen (Tylenol Tab) 650 mg Q6HP PRN PO HEADACHE or DISCOMFORT 11/24/20 21:10 11/26/20 08:32 Al Hydrox/Mg Hydrox/Simethicone (Mylanta) 30 ml Q4HP PRN PO HEARTBURN/INDIGESTION 11/24/20 21:10 Aspirin (Ecotrin) 81 mg DAILY PO 11/25/20 09:00 11/26/20 08:32 Atorvastatin Calcium (Lipitor) 40 mg DAILY PO 11/25/20 09:00 11/26/20 08:33 Benztropine Mesylate (Cogentin) 1 mg BID PO 11/25/20 09:00 11/26/20 10:50 DC 11/26/20 08:33 Clopidogrel Bisulfate (PLAVix) 75 mg DAILY PO 11/25/20 09:00 11/26/20 08:33 Dextrose (Dextrose 50%) 25 ml ASDIRECTED PRN IV SEE LABEL COMMENTS 11/25/20 15:25 Diphenhydramine HCl (Benadryl) 25 mg QHS PRN PO INSOMNIA 11/24/20 21:10 Divalproex Sodium (Depakote) 500 mg BID PO 11/25/20 09:00 11/26/20 08:32 Fluoxetine HCl (PROzac) 10 mg DAILY PO 11/26/20 09:00 11/26/20 10:50 DC 11/26/20 08:33 Fluoxetine HCl (PROzac) 20 mg DAILY PO 11/27/20 09:00 Fluphenazine HCl (Prolixin) 5 mg QHS PO 11/24/20 21:00 11/26/20 10:50 DC Gabapentin (Neurontin) 600 mg TID PO 11/25/20 09:00 11/26/20 08:32 Glucagon (Glucagon) 1 mg ASDIRECTED PRN SC SEE LABEL COMMENTS 11/25/20 15:25 Glucose (Glucose) 16 GM ASDIRECTED PRN PO SEE LABEL COMMENTS 11/25/20 15:25 Home Med (Med Rec Complete!) ASDIRECTED XX 11/24/20 20:30 11/24/20 20:30 DC Insulin Human Lispro (HumaLOG INSULIN) SEE PROTOCOL TABLE AC SC 11/25/20 17:30 Insulin Human Lispro (HumaLOG INSULIN) SEE PROTOCOL TABLE QHS SC 11/25/20 21:00 Lisinopril (Prinivil) 40 mg DAILY PO 11/25/20 09:00 11/26/20 08:33 Magnesium Hydroxide (Milk Of Magnesia) 30 ml DAILYPRN PRN PO CONSTIPATION 11/24/20 21:10 Nicotine (Nicoderm Cq 21mg) 1 patch DAILY PRN TD NICOTINE WITHDRAWAL 11/24/20 21:10 11/25/20 10:27 Olanzapine (ZyPREXA ZYDIS) 5 mg Q4HP PRN PO AGITATION 11/24/20 21:10 Tizanidine HCl (Zanaflex) 4 mg TID PRN PO MUSCLE SPASMS 11/24/20 21:10 11/26/20 08:31 Topiramate (TopAMAX) 100 mg BID PO 11/25/20 09:00 11/26/20 08:33 Trazodone HCl (Desyrel) 50 mg QHSP PRN PO INSOMNIA 11/24/20 21:10 Allergies Coded Allergies: Tetanus Vaccines and Toxoid (Verified Allergy, Unknown, 06/26/20) metoprolol (Verified Adverse Reaction, Severe, SECOND DEGREE HEART BLOCK, 11/15/20) JADA CHERRY MD Nov 26, 2020 13:12
[2020-11-26 14:19] LABS: BLOOD UREA NITROGEN 19 MG/DL (7-18); CALCIUM LEVEL 10.3 MG/DL (8.5-10.1); CARBON DIOXIDE LEVEL 23 MEQ/L (21-32); CHLORIDE LEVEL 108 MEQ/L (98-107); CREATININE FOR GFR 0.87 MG/DL (0.55-1.30); GLOMERULAR FILTRATION RATE > 60.0 (>51); GLUCOSE, FASTING 115 MG/DL (70-100); POTASSIUM SERUM 4.1 MEQ/L (3.5-5.1); SODIUM LEVEL 140 MEQ/L (136-145)
[2020-11-26 16:39] VITALS: BP 132/68
[2020-11-26] MEDS: traZODone 50 MG TAB PO PRN (21:11)
[2020-11-27 06:14] VITALS: BP 153/98
[2020-11-27] MEDS: HumaLOG INSULIN (NovoLOG) PER UNIT SC SCH ×4 (06:37→21:00)
[2020-11-27] MEDS: lisinopriL 40 MG TAB PO SCH (09:22)
[2020-11-27] MEDS: TOPIRAMATE (TopAMAX) 100 MG TAB PO SCH ×2 (09:23→21:00)
[2020-11-27] MEDS: CLOPIDOGREL 75 MG TAB PO SCH (09:23)
[2020-11-27] MEDS: ATORVASTATIN 20 MG TAB PO SCH (09:24)
[2020-11-27] MEDS: ASPIRIN 81MG ENTERIC TABLET PO SCH (09:24)
[2020-11-27] MEDS: GABAPENTIN 300 MG CAP PO SCH ×3 (09:24→21:00)
[2020-11-27] MEDS: DIVALPROEX 500 MG TAB PO SCH ×2 (09:24→21:00)
[2020-11-27] MEDS: FLUoxetine 20 MG CAP PO SCH (09:24)
[2020-11-27] MEDS: ACETAMINOPHEN TAB 650MG DOSE (2X325MG) PO PRN (09:25)
[2020-11-27] MEDS: tiZANidine 4 MG TAB PO PRN (12:38)
--- NOTE | 2020-11-27 17:12 | MHIPNPDOC ---
[facility] Progress Note Progress Note DATE OF SERVICE: 11/27/20 HISTORY: 60-year-old with numerous somatic complaints and most recently panic attacks. VITAL SIGNS: See below. NEW TEST RESULTS:, None. CURRENT MEDICATIONS: See below. MENTAL STATUS EXAMINATION: Patient is a 60-year old female, who is, has availed herself of when necessary medications which have reduced her pain. Her mood is improved and her affect is brighter. Speech: Is. No gross disturbance. Language skills are. No gross disturbance. Thought processes including: No major complaints today. Once patient realized she had medication for pain and for muscle stiffness. Thought content: As above. Abstract reasoning, and computation:, Moderate. Description of associations: No loose association. Description of abnormal or psychotic thoughts:. No present psychotic thought. Judgment:, Poor. Insight:, Limited. Orientation: 3. Recent and remote memory: Intact. Attention span and concentration: No gross disturbance. Language:. No gross disturbance. Fund of knowledge: Reasonable. Mood: Improving. Affect: Slightly brighter. DIAGNOSES: 1. Anxiety, depression. 2., Chronic headaches. 3., None. ASSESSMENT: As above MANAGEMENT PLAN:. Continue medication management. TIME SPENT:, 20 minutes. Vital Signs Vital Signs Date Time Temp Pulse Resp B/P (MAP) Pulse Ox O2 Delivery O2 Flow Rate FiO2 11/27/20 06:14 97.3 56 16 153/98 (116) 95 Room Air Laboratory Data 24H Labs Laboratory Tests 2 11/26/20 17:25: Bedside Glucose (Misc Panel) 84 11/26/20 21:09: Bedside Glucose (Misc Panel) 144H 11/27/20 06:34: Bedside Glucose (Misc Panel) 118H 11/27/20 11:56: Bedside Glucose (Misc Panel) 115H Current Medications Current Medications Medications (Trade) Dose Ordered Sig/Rao Route PRN Reason Start Time Stop Time Status Last Admin Dose Admin Acetaminophen (Tylenol Tab) 650 mg Q6HP PRN PO HEADACHE or DISCOMFORT 11/24/20 21:10 11/27/20 09:25 Al Hydrox/Mg Hydrox/Simethicone (Mylanta) 30 ml Q4HP PRN PO HEARTBURN/INDIGESTION 11/24/20 21:10 Aspirin (Ecotrin) 81 mg DAILY PO 11/25/20 09:00 11/27/20 09:24 Atorvastatin Calcium (Lipitor) 40 mg DAILY PO 11/25/20 09:00 11/27/20 09:24 Benztropine Mesylate (Cogentin) 1 mg BID PO 11/25/20 09:00 11/26/20 10:50 DC 11/26/20 08:33 Clopidogrel Bisulfate (PLAVix) 75 mg DAILY PO 11/25/20 09:00 11/27/20 09:23 Dextrose (Dextrose 50%) 25 ml ASDIRECTED PRN IV SEE LABEL COMMENTS 11/25/20 15:25 Diphenhydramine HCl (Benadryl) 25 mg QHS PRN PO INSOMNIA 11/24/20 21:10 Divalproex Sodium (Depakote) 500 mg BID PO 11/25/20 09:00 11/27/20 09:24 Fluoxetine HCl (PROzac) 10 mg DAILY PO 11/26/20 09:00 11/26/20 10:50 DC 11/26/20 08:33 Fluoxetine HCl (PROzac) 20 mg DAILY PO 11/27/20 09:00 11/27/20 09:24 Fluphenazine HCl (Prolixin) 5 mg QHS PO 11/24/20 21:00 11/26/20 10:50 DC Gabapentin (Neurontin) 600 mg TID PO 11/25/20 09:00 11/27/20 16:56 Glucagon (Glucagon) 1 mg ASDIRECTED PRN SC SEE LABEL COMMENTS 11/25/20 15:25 Glucose (Glucose) 16 GM ASDIRECTED PRN PO SEE LABEL COMMENTS 11/25/20 15:25 Home Med (Med Rec Complete!) ASDIRECTED XX 11/24/20 20:30 11/24/20 20:30 DC Insulin Human Lispro (HumaLOG INSULIN) SEE PROTOCOL TABLE AC SC 11/25/20 17:30 11/27/20 06:37 Insulin Human Lispro (HumaLOG INSULIN) SEE PROTOCOL TABLE QHS SC 11/25/20 21:00 Lisinopril (Prinivil) 40 mg DAILY PO 11/25/20 09:00 11/27/20 09:22 Magnesium Hydroxide (Milk Of Magnesia) 30 ml DAILYPRN PRN PO CONSTIPATION 11/24/20 21:10 Nicotine (Nicoderm Cq 21mg) 1 patch DAILY PRN TD NICOTINE WITHDRAWAL 11/24/20 21:10 11/25/20 10:27 Olanzapine (ZyPREXA ZYDIS) 5 mg Q4HP PRN PO AGITATION 11/24/20 21:10 11/27/20 12:38 Tizanidine HCl (Zanaflex) 4 mg TID PRN PO MUSCLE SPASMS 11/24/20 21:10 11/27/20 12:38 Topiramate (TopAMAX) 100 mg BID PO 11/25/20 09:00 11/27/20 09:23 Trazodone HCl (Desyrel) 50 mg QHSP PRN PO INSOMNIA 11/24/20 21:10 11/26/20 21:11 Allergies Coded Allergies: Tetanus Vaccines and Toxoid (Verified Allergy, Unknown, 06/26/20) metoprolol (Verified Adverse Reaction, Severe, SECOND DEGREE HEART BLOCK, 11/15/20) JADA CHERRY MD Nov 27, 2020 17:12
[2020-11-27 18:46] VITALS: BP 131/66
[2020-11-28] MEDS: ACETAMINOPHEN TAB 650MG DOSE (2X325MG) PO PRN ×2 (03:33→11:57)
[2020-11-28 06:00] VITALS: BP 154/85
[2020-11-28] MEDS: HumaLOG INSULIN (NovoLOG) PER UNIT SC SCH ×4 (06:44→21:00)
[2020-11-28] MEDS: GABAPENTIN 300 MG CAP PO SCH ×3 (09:07→21:08)
[2020-11-28] MEDS: DIVALPROEX 500 MG TAB PO SCH ×2 (09:07→21:08)
[2020-11-28] MEDS: TOPIRAMATE (TopAMAX) 100 MG TAB PO SCH ×2 (09:07→21:08)
[2020-11-28] MEDS: FLUoxetine 20 MG CAP PO SCH (09:08)
[2020-11-28] MEDS: lisinopriL 40 MG TAB PO SCH (09:08)
[2020-11-28] MEDS: CLOPIDOGREL 75 MG TAB PO SCH (09:08)
[2020-11-28] MEDS: ATORVASTATIN 20 MG TAB PO SCH (09:08)
[2020-11-28] MEDS: ASPIRIN 81MG ENTERIC TABLET PO SCH (09:08)
[2020-11-28] MEDS: tiZANidine 4 MG TAB PO PRN ×2 (11:57→21:08)
--- NOTE | 2020-11-28 12:56 | MHIPNPDOC ---
[facility] Progress Note Progress Note DATE OF SERVICE: 11/28/20 HISTORY: Following notes are from her past admission for intractable headaches Patient is 60 years old female with past medical history of bipolar disorder, migraines, hypertension, type 2 diabetes, coronary artery diseases with stents placement presented to the hospital with severe headache. Patient stated that she has been having severe headache, constant 10 out of 10 for past week. Of note patient has been having migraine for years. Patient denied fever, chills, chest pain, palpitations, nausea, vomiting, diarrhea or dysuria. Patient stated that her regular medications for migraine did not alleviate the pain. Patient stated the pain located in the occipital and temporal areas. Also she stated that she developed mild dyspnea. In ED patient was found to have leukocytosis of 13.8, first troponin 0.37, second troponin 0.4, 3d troponin 0.37. EKG showed first-degree AV block, sinus rhythm, left anterior fascicular block. Cardiology team recommended to admit patient for observation for next 24 hours. CTA negative for PE HOSPITAL COURSE: During hospital stay following issue addressed Assessment/Plan Patient is 60 years old female with past medical history of bipolar disorder, migraines, hypertension, type 2 diabetes, coronary artery diseases with stents placement presented to the hospital with severe headache. Patient stated that she has been having severe headache, constant 10 out of 10 for past week. Of note patient has been having migraine for years. Patient denied fever, chills, chest pain, palpitations, nausea, vomiting, diarrhea or dysuria. Patient stated that her regular medications for migraine did not alleviate the pain. Patient stated the pain located in the occipital and temporal areas. Also she stated that she developed mild dyspnea. In ED patient was found to have leukocytosis of 13.8, first troponin 0.37, second troponin 0.4, 3d troponin 0.37. EKG showed first-degree AV block, sinus rhythm, left anterior fascicular block. Cardiology team recommended to admit patient for observation for next 24 hours. CTA negative for PE. This admission to the mental health unit is focused on patient's panic attacks, although she continues to complain of headaches as mentioned in her history. Today, her affect is improved and she admits she is feeling a little better. Her mother apparently wants her to go to transitional living, but patient refuses. No noticeable or reported. Panic attacks by staff. Patient is encouraged to get out of her room out of bed and socialize with patients and, of course, to report any panic attacks. She states, "I felt awful pain. I've been up all night. I hurt all over. I hurt on the left side. Patient states she is quit cigarettes, but she "feels so bad." VITAL SIGNS: See below. NEW TEST RESULTS: None. CURRENT MEDICATIONS: See below. MENTAL STATUS EXAMINATION: Patient is a 60-year old female, who is being treated for panic attacks and associated somatic complaints. Speech: Is, generally normal. Language skills are. No gross disturbance. Thought processes including: Complains of panic attacks but not many of being seen today if any, and she still complaining of her back pain and headaches but it's not as strong as yesterday. Her on admission. Thought content: Focused on panic attacks and headaches. Abstract reasoning, and computation: Poor. Description of associations:. No loose associations. Description of abnormal or psychotic thoughts:, No obvious psychotic thought. Judgment: Poor. Insight: Poor. Orientation: 3. Recent and remote memory: Essentially intact. Attention span and concentration:. Poor. Language: No gross disturbance Fund of knowledge: Limited. Mood:, Anxious. Affect:, Congruent. DIAGNOSES: 1. Anxiety. Depression 2., Somatic complaints, headaches. 3., None. ASSESSMENT:. Patient's mental state seems variable. I'm encouraging her to get out of her room so we can observe her further, rather than laying in bed. I have not yet seen today any severe panic attacks like she demonstrated on admission MANAGEMENT PLAN:. Continue observation and use of SSRI. TIME SPENT: 25 minutes. Vital Signs Vital Signs Date Time Temp Pulse Resp B/P (MAP) Pulse Ox O2 Delivery O2 Flow Rate FiO2 11/28/20 09:00 Room Air 11/28/20 06:00 97.8 65 20 154/85 (108) 95 Laboratory Data 24H Labs Laboratory Tests 2 11/27/20 17:24: Bedside Glucose (Misc Panel) 83 11/28/20 06:37: Bedside Glucose (Misc Panel) 98 11/28/20 11:54: Bedside Glucose (Misc Panel) 122H Current Medications Current Medications Medications (Trade) Dose Ordered Sig/Rao Route PRN Reason Start Time Stop Time Status Last Admin Dose Admin Acetaminophen (Tylenol Tab) 650 mg Q6HP PRN PO HEADACHE or DISCOMFORT 11/24/20 21:10 11/28/20 11:57 Al Hydrox/Mg Hydrox/Simethicone (Mylanta) 30 ml Q4HP PRN PO HEARTBURN/INDIGESTION 11/24/20 21:10 Aspirin (Ecotrin) 81 mg DAILY PO 11/25/20 09:00 11/28/20 09:08 Atorvastatin Calcium (Lipitor) 40 mg DAILY PO 11/25/20 09:00 11/28/20 09:08 Benztropine Mesylate (Cogentin) 1 mg BID PO 11/25/20 09:00 11/26/20 10:50 DC 11/26/20 08:33 Clopidogrel Bisulfate (PLAVix) 75 mg DAILY PO 11/25/20 09:00 11/28/20 09:08 Dextrose (Dextrose 50%) 25 ml ASDIRECTED PRN IV SEE LABEL COMMENTS 11/25/20 15:25 Diphenhydramine HCl (Benadryl) 25 mg QHS PRN PO INSOMNIA 11/24/20 21:10 Divalproex Sodium (Depakote) 500 mg BID PO 11/25/20 09:00 11/28/20 09:07 Fluoxetine HCl (PROzac) 10 mg DAILY PO 11/26/20 09:00 11/26/20 10:50 DC 11/26/20 08:33 Fluoxetine HCl (PROzac) 20 mg DAILY PO 11/27/20 09:00 11/28/20 09:08 Fluphenazine HCl (Prolixin) 5 mg QHS PO 11/24/20 21:00 11/26/20 10:50 DC Gabapentin (Neurontin) 600 mg TID PO 11/25/20 09:00 11/28/20 09:07 Glucagon (Glucagon) 1 mg ASDIRECTED PRN SC SEE LABEL COMMENTS 11/25/20 15:25 Glucose (Glucose) 16 GM ASDIRECTED PRN PO SEE LABEL COMMENTS 11/25/20 15:25 Home Med (Med Rec Complete!) ASDIRECTED XX 11/24/20 20:30 11/24/20 20:30 DC Insulin Human Lispro (HumaLOG INSULIN) SEE PROTOCOL TABLE AC SC 11/25/20 17:30 11/27/20 06:37 Insulin Human Lispro (HumaLOG INSULIN) SEE PROTOCOL TABLE QHS SC 11/25/20 21:00 Lisinopril (Prinivil) 40 mg DAILY PO 11/25/20 09:00 11/28/20 09:08 Magnesium Hydroxide (Milk Of Magnesia) 30 ml DAILYPRN PRN PO CONSTIPATION 11/24/20 21:10 Nicotine (Nicoderm Cq 21mg) 1 patch DAILY PRN TD NICOTINE WITHDRAWAL 11/24/20 21:10 11/25/20 10:27 Olanzapine (ZyPREXA ZYDIS) 5 mg Q4HP PRN PO AGITATION 11/24/20 21:10 11/27/20 12:38 Tizanidine HCl (Zanaflex) 4 mg TID PRN PO MUSCLE SPASMS 11/24/20 21:10 11/28/20 11:57 Topiramate (TopAMAX) 100 mg BID PO 11/25/20 09:00 11/28/20 09:07 Trazodone HCl (Desyrel) 50 mg QHSP PRN PO INSOMNIA 11/24/20 21:10 11/26/20 21:11 Allergies Coded Allergies: Tetanus Vaccines and Toxoid (Verified Allergy, Unknown, 06/26/20) metoprolol (Verified Adverse Reaction, Severe, SECOND DEGREE HEART BLOCK, 11/15/20) JADA CHERRY MD Nov 28, 2020 12:56
[2020-11-28 16:16] VITALS: BP 131/77
[2020-11-28] MEDS: traZODone 50 MG TAB PO PRN (21:08)
[2020-11-29 06:18] VITALS: BP 107/53
[2020-11-29] MEDS: HumaLOG INSULIN (NovoLOG) PER UNIT SC SCH ×4 (06:33→21:00)
[2020-11-29] MEDS: TOPIRAMATE (TopAMAX) 100 MG TAB PO SCH ×2 (08:55→21:28)
[2020-11-29] MEDS: lisinopriL 40 MG TAB PO SCH (08:55)
[2020-11-29] MEDS: GABAPENTIN 300 MG CAP PO SCH ×3 (08:55→21:28)
[2020-11-29] MEDS: CLOPIDOGREL 75 MG TAB PO SCH (08:55)
[2020-11-29] MEDS: ASPIRIN 81MG ENTERIC TABLET PO SCH (08:55)
[2020-11-29] MEDS: ATORVASTATIN 20 MG TAB PO SCH (08:55)
[2020-11-29] MEDS: FLUoxetine 20 MG CAP PO SCH (08:55)
[2020-11-29] MEDS: DIVALPROEX 500 MG TAB PO SCH ×2 (08:55→21:28)
[2020-11-29] MEDS: ACETAMINOPHEN TAB 650MG DOSE (2X325MG) PO PRN ×2 (09:42→18:54)
[2020-11-29] MEDS: tiZANidine 4 MG TAB PO PRN ×2 (09:42→18:54)
[2020-11-29 16:07] VITALS: BP 131/83
[2020-11-29] MEDS: MOM 30ML SUSPENSION UDC PO PRN (18:03)
[2020-11-29] MEDS: traZODone 50 MG TAB PO PRN (21:28)
[2020-11-30] MEDS: tiZANidine 4 MG TAB PO PRN ×3 (03:23→19:45)
[2020-11-30] MEDS: ACETAMINOPHEN TAB 650MG DOSE (2X325MG) PO PRN ×3 (03:23→19:45)
[2020-11-30 06:15] VITALS: BP 119/66
[2020-11-30] MEDS: HumaLOG INSULIN (NovoLOG) PER UNIT SC SCH ×4 (06:48→20:41)
[2020-11-30] MEDS: ASPIRIN 81MG ENTERIC TABLET PO SCH (08:33)
[2020-11-30] MEDS: ATORVASTATIN 20 MG TAB PO SCH (08:33)
[2020-11-30] MEDS: lisinopriL 40 MG TAB PO SCH (08:34)
[2020-11-30] MEDS: FLUoxetine 20 MG CAP PO SCH (08:34)
[2020-11-30] MEDS: GABAPENTIN 300 MG CAP PO SCH ×3 (08:34→20:39)
[2020-11-30] MEDS: CLOPIDOGREL 75 MG TAB PO SCH (08:34)
[2020-11-30] MEDS: DIVALPROEX 500 MG TAB PO SCH ×2 (08:34→20:39)
[2020-11-30] MEDS: TOPIRAMATE (TopAMAX) 100 MG TAB PO SCH ×2 (08:34→20:39)
[2020-11-30] MEDS: MOM 30ML SUSPENSION UDC PO PRN (11:56)
--- NOTE | 2020-11-30 14:02 | MHIPNPDOC ---
[facility] Progress Note Progress Note DATE OF SERVICE: 11/30/20 HISTORY: Patient states I'm having panic attacks and pain. I need to stop smoking. I have pain in my head. Patient states she's been followed by a neurologist. Patient states she sees a Dr. Barbara Manning outpatient psychiatry. Patient states I will blow up. She states I feel so much pressure everywhere. I have pain everywhere. My body is breaking apart. My blood pressure is too high. I'm afraid I will I'm in a lot of pain. I am out of breath. I have panic attacks 4-5 times a day. My medications are all wrong. I used to take lithium and Prolixin. I have been taking Depakote one year and I don't like it. I am so sick. My head is cracking my breathing is difficult. My spine is cracking my body snaps. She states she has had these symptoms for 6 months. She states, "my mother thinks I'm crazy." She has no therapist. She is scared. She is panicking. She feels anxiety but she denies hallucinations, delusions, obsessions, compulsions or phobias. She lives alone in [place] with her cat. Her mother lives in [place]. 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 Her legal history is negative. Her drug history is negative. Alcohol history is negative. She sees Dr. White, her neurologist. She has a 12th grade education. She was once. Her from her 20 years ago. They were for [address] Zaheer Guillen. She recently lost an uncle Today patient is seen with a very bright affect and claiming she feels much better and that she has been cured. She is grateful and would like to be discharged VITAL SIGNS: See below. NEW TEST RESULTS:. None. CURRENT MEDICATIONS: See below. MENTAL STATUS EXAMINATION: Patient is a 60-year old female, who is, not complaining of pain or panic or anxiety today. Speech: Is no gross disturbance. Language skills are intact. Thought processes including:, Optimistic. Thought content: Today cheerful. Abstract reasoning, and computation: Able to abstract. Description of associations:. No loose associations. Description of abnormal or psychotic thoughts: no psychotic thoughts. Judgment: To be determined. Insight:, Limited. Orientation: 3. Recent and remote memory: Intact. Attention span and concentration: Improved. Language:. No gross disturbance. Fund of knowledge: Reasonable. Mood: Improved. Affect: Bright. DIAGNOSES: 1. Anxiety with panic attacks. 2., Headaches. 3., None. ASSESSMENT: Her improvement has been remarkable, but a precipitous discharge May bring about recurrence so I will continue to observe her with staff to reinforce her improvement MANAGEMENT PLAN: As above. TIME SPENT: 20 minutes. Vital Signs Vital Signs Date Time Temp Pulse Resp B/P (MAP) Pulse Ox O2 Delivery O2 Flow Rate FiO2 11/30/20 06:15 97.6 57 18 119/66 (83) 96 Room Air Laboratory Data 24H Labs Laboratory Tests 2 11/29/20 16:58: Bedside Glucose (Misc Panel) 82 11/30/20 11:24: Bedside Glucose (Misc Panel) 116H Current Medications Current Medications Medications (Trade) Dose Ordered Sig/Rao Route PRN Reason Start Time Stop Time Status Last Admin Dose Admin Acetaminophen (Tylenol Tab) 650 mg Q6HP PRN PO HEADACHE or DISCOMFORT 11/24/20 21:10 11/30/20 10:06 Al Hydrox/Mg Hydrox/Simethicone (Mylanta) 30 ml Q4HP PRN PO HEARTBURN/INDIGESTION 11/24/20 21:10 Aspirin (Ecotrin) 81 mg DAILY PO 11/25/20 09:00 11/30/20 08:33 Atorvastatin Calcium (Lipitor) 40 mg DAILY PO 11/25/20 09:00 11/30/20 08:33 Benztropine Mesylate (Cogentin) 1 mg BID PO 11/25/20 09:00 11/26/20 10:50 DC 11/26/20 08:33 Clopidogrel Bisulfate (PLAVix) 75 mg DAILY PO 11/25/20 09:00 11/30/20 08:34 Dextrose (Dextrose 50%) 25 ml ASDIRECTED PRN IV SEE LABEL COMMENTS 11/25/20 15:25 Diphenhydramine HCl (Benadryl) 25 mg QHS PRN PO INSOMNIA 11/24/20 21:10 Divalproex Sodium (Depakote) 500 mg BID PO 11/25/20 09:00 11/30/20 08:34 Fluoxetine HCl (PROzac) 10 mg DAILY PO 11/26/20 09:00 11/26/20 10:50 DC 11/26/20 08:33 Fluoxetine HCl (PROzac) 20 mg DAILY PO 11/27/20 09:00 11/30/20 08:34 Fluphenazine HCl (Prolixin) 5 mg QHS PO 11/24/20 21:00 11/26/20 10:50 DC Gabapentin (Neurontin) 600 mg TID PO 11/25/20 09:00 11/30/20 08:34 Glucagon (Glucagon) 1 mg ASDIRECTED PRN SC SEE LABEL COMMENTS 11/25/20 15:25 Glucose (Glucose) 16 GM ASDIRECTED PRN PO SEE LABEL COMMENTS 11/25/20 15:25 Home Med (Med Rec Complete!) ASDIRECTED XX 11/24/20 20:30 11/24/20 20:30 DC Insulin Human Lispro (HumaLOG INSULIN) SEE PROTOCOL TABLE AC SC 11/25/20 17:30 11/30/20 11:56 Insulin Human Lispro (HumaLOG INSULIN) SEE PROTOCOL TABLE QHS SC 11/25/20 21:00 Lisinopril (Prinivil) 40 mg DAILY PO 11/25/20 09:00 11/30/20 08:34 Magnesium Hydroxide (Milk Of Magnesia) 30 ml DAILYPRN PRN PO CONSTIPATION 11/24/20 21:10 11/30/20 11:56 Nicotine (Nicoderm Cq 21mg) 1 patch DAILY PRN TD NICOTINE WITHDRAWAL 11/24/20 21:10 11/25/20 10:27 Olanzapine (ZyPREXA ZYDIS) 5 mg Q4HP PRN PO AGITATION 11/24/20 21:10 11/27/20 12:38 Tizanidine HCl (Zanaflex) 4 mg TID PRN PO MUSCLE SPASMS 11/24/20 21:10 11/30/20 10:06 Topiramate (TopAMAX) 100 mg BID PO 11/25/20 09:00 11/30/20 08:34 Trazodone HCl (Desyrel) 50 mg QHSP PRN PO INSOMNIA 11/24/20 21:10 11/29/20 21:28 Allergies Coded Allergies: Tetanus Vaccines and Toxoid (Verified Allergy, Unknown, 06/26/20) metoprolol (Verified Adverse Reaction, Severe, SECOND DEGREE HEART BLOCK, 11/15/20) JADA CHERRY MD Nov 30, 2020 14:02
[2020-11-30 16:15] VITALS: BP 129/60
[2020-11-30] MEDS: traZODone 50 MG TAB PO PRN (20:39)
[2020-12-01] MEDS: ACETAMINOPHEN TAB 650MG DOSE (2X325MG) PO PRN (01:47)
[2020-12-01 06:27] VITALS: BP 137/85
[2020-12-01] MEDS: HumaLOG INSULIN (NovoLOG) PER UNIT SC SCH (06:39)
[2020-12-01] MEDS ORDERED: TRAZ-252 PO (08:30)
[2020-12-01] MEDS ORDERED: FLUO20CA22 PO (08:30)
[2020-12-01] MEDS: CLOPIDOGREL 75 MG TAB PO SCH (09:00)
[2020-12-01] MEDS: GABAPENTIN 300 MG CAP PO SCH (09:00)
[2020-12-01] MEDS: ATORVASTATIN 20 MG TAB PO SCH (09:00)
[2020-12-01] MEDS: DIVALPROEX 500 MG TAB PO SCH (09:00)
[2020-12-01] MEDS: TOPIRAMATE (TopAMAX) 100 MG TAB PO SCH (09:00)
[2020-12-01] MEDS: lisinopriL 40 MG TAB PO SCH (09:00)
[2020-12-01] MEDS: ASPIRIN 81MG ENTERIC TABLET PO SCH (09:00)
[2020-12-01] MEDS: FLUoxetine 20 MG CAP PO SCH (09:00)
--- NOTE | 2020-12-01 14:31 | MHDSPDOC ---
[facility] Discharge Summary Discharge Summary DATE OF ADMISSION: Nov 24, 2020 at 21:09 DATE OF DISCHARGE: Dec 01, 2020 at 11:45 DISCHARGE DIAGNOSES: 1. Anxiety, panic attacks. HISTORY OF THE PRESENT ILLNESS: Patient is a 60 -year-old , female, who . * Pt contacted EMS today due to having a severe headache. She was recently hospitalized 11/17/20 as a medical admission due to her "intractable headache" and was discharged 11/18/20. Headache became severe again, therefore contacted EMS. During PA interview, she allegedly told PA she was feeling suicidal, therefore was referred for a [facility]. Chief Complaint * pt states, "I told them I was feeling suicidal 2 days ago, not today." Pt reports a long hx of Occipital Neuralgia, was recently discharged from [facility] due to intractable pain. States her pain was controlled while she was inpt, however when she returned home her pain returned. She suspects it is due from her cigarette addiction which exacerbates her symptoms. Pt admits she is unable to quit smoking without assistance. Pt adamantly denies SI to TW, admits expressing SI to RN and PA and states "it was 2 days ago." Other stressors include recently losing her Uncle and is Tuesday. Spoke to PA who reports pt expressed SI during their interview today, but she did not disclose plan. Pt appears to minimizing her suicidal threat she expressed earlier today. Spoke to Mother who reports pt expressed SI with plan to OD yesterday and stated, "I just don't know which medication would do the trick." Mother is requesting hospitalization due to not able to help her any longer due to her own medical issue and fears she will attempt suicide if discharged. My interview with the patient revealed the following: Patient states I'm having panic attacks and pain. I need to stop smoking. I have pain in my head. Patient states she's been followed by a neurologist. Patient states she sees a Dr. Otoniel Vilchis [facility] outpatient psychiatry. Patient states I will blow up. She states I feel so much pressure everywhere. I have pain everywhere. My body is breaking apart. My blood pressure is too high. I'm afraid I will I'm in a lot of pain. I am out of breath. I have panic attacks 4-5 times a day. My medications are all wrong. I used to take lithium and Prolixin. I have been taking Depakote one year and I don't like it. I am so sick. My head is cracking my breathing is difficult. My spine is cracking my body snaps. She states she has had these symptoms for 6 months. She states, "my mother thinks I'm crazy." She has no therapist. She is scared. She is panicking. She feels anxiety but she denies hallucinations, delusions, obsessions, compulsions or phobias. She lives alone in [place] with her cat. Her mother lives in [place]. 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 Her legal history is negative. Her drug history is negative. Alcohol history is negative. She sees Dr. White, her neurologist. She has a 12th grade education. She was once. Her from her 20 years ago. They were for [address] Zaheer Guillen. She recently lost an uncle Patient was extremely nervous and panicky on first 2 days of admission. She was started on Prozac and was discontinued from her Prolixin and Cogentin. She was maintained on Depakote. And improved rapidly. Her mood improved. Her anxiety decreased throughout the weekend and she requested discharge on repetitive inquiry REASON FOR ADMISSION:, Suicidal ideation, panic attacks CONSULTANTS INVOLVED:, None TREATMENT AND PROGRESS ON THE UNIT :. Patient improved rapidly. Affect brightened and patient requested discharge. HOSPITAL COURSE:. As above DISCHARGE ASSESSMENT: Repetitive admissions would indicate patient will probably be seen again but at this point, her mood improved. She denied any suicidal or homicidal ideation. She did not complain of any pain and therefore was discharge d MENTAL STATUS EXAMINATION ON DISCHARGE: Patient is a 60-year old female, who is in good mood and wanting to go home. Speech is. No gross disturbance. Language skills are gross disturbance. Thought processes including: Feels well. No panic, no anxiety, no headache. Thought content: As above. Abstract reasoning, and computation: Minimal. Description of associations:. No loose associations. Description of abnormal or psychotic thoughts:, No psychotic thoughts. Judgment: Fair. Insight: Poor. Orientation to 3. Recent and remote memory: Intact. Attention span and concentration:. No gross disturbance. Language: No gross disturbance. Fund of knowledge: Reasonable. Mood: Good. Affect: Bright. MEDICATIONS ON DISCHARGE: -, Depakote 500 mg twice a day for mood. -. Prozac 20 mg daily for anxiety and panic Trazodone 50 mg. Daily at bedtime for insomnia -Gabapentin 600 mg 3 times a day for pain PLAN/FOLLOWUP ARRANGEMENTS: As per vacation planner. Continue outpatient follow-up. The amount of time spent in the coordination of care for this patient was approximately 25 minutes. ETOH/Disorder Med Rx ETOH/DRUG DISORDER RX: N/A Vital Signs/I&Os Vital Signs Date Time Temp Pulse Resp B/P (MAP) Pulse Ox O2 Delivery O2 Flow Rate FiO2 12/01/20 06:27 96.6 82 16 137/85 (102) 100 Room Air Laboratory Data Labs 24H Laboratory Tests 2 11/30/20 16:58: Bedside Glucose (Misc Panel) 95 Medications Scheduled Aspirin (Aspirin EC) 81 Mg Tablet.dr, 81 MG PO DAILY, (Reported) Atorvastatin Calcium (Atorvastatin Calcium) 20 Mg Tablet, 40 MG PO DAILY, (R eported) Clopidogrel Bisulfate (Plavix) 75 Mg Tablet, 75 MG PO DAILY, (Reported) Divalproex Sodium (Divalproex Sodium) 500 Mg Tablet.dr, 500 MG PO BID, (Reported) Fluoxetine Hcl (Fluoxetine HCl) 20 Mg Capsule, 20 MG PO DAILY for Anx, #10 Gabapentin (Gabapentin) 300 Mg Capsule, 600 MG PO TID, (Reported) Lisinopril (Lisinopril) 40 Mg Tablet, 40 MG PO DAILY, (Reported) Topiramate (Topiramate) 100 Mg Tablet, 100 MG PO BID, (Reported) Scheduled PRN Acetaminophen (Acetaminophen) 500 Mg Tablet, 1,000 MG PO BID PRN for PAIN, (Reported) Diclofenac Sodium (Diclofenac Sodium) 1% 100GM Gel..gram., 1 DOSE TOP BID PRN for PAIN, (Reported) USES ON BACK OF NECK OR LEFT HIP NEEDED Diphenhydramine HCl (Diphenhydramine HCl) 25 Mg Capsule, 25 MG PO QHS PRN for INSOMNIA, (Reported) Tizanidine HCl (Tizanidine HCl) 4 Mg Tablet, 4 MG PO TID PRN for MUSCLE SPASMS, (Reported) Trazodone HCl (Trazodone HCl) 50 Mg Tablet, 50 MG PO QHSP PRN for INSOMNIA, #10 Miscellaneous Medications [Comments] , (Reported) MED LIST COMPILED WITH EXTERNAL MED HISTORY Allergies Coded Allergies: Tetanus Vaccines and Toxoid (Verified Allergy, Unknown, 06/26/20) metoprolol (Verified Adverse Reaction, Severe, SECOND DEGREE HEART BLOCK, 11/15/20) JADA CHERRY MD Dec 01, 2020 14:31
== END 2020-12-01 11:45 | disposition home or self-care (01) | DRG 880 ==
LOC: EDBD 14:33 → M ED 14:33 → M ED INP 21:09 → M PSY 11-25 00:50
PROVIDERS: ADMIT Psychiatry & Neurology Psychiatry; ATTEND Psychiatry & Neurology Child & Adolescent Psychiatry
DX: F41.0 Panic disorder [episodic paroxysmal anxiety] (principal); R45.851 Suicidal ideations; F17.200 Nicotine dependence, unspecified, uncomplicated; Z79.82 Long term (current) use of aspirin; Z79.899 Other long term (current) drug therapy; Z88.8 Allergy status to other drugs, medicaments and biological substances; Z88.7 Allergy status to serum and vaccine; G43.909 Migraine, unspecified, not intractable, without status migrainosus; M54.2 Cervicalgia; M54.5 Low back pain; I10 Essential (primary) hypertension; I25.10 Atherosclerotic heart disease of native coronary artery without angina pectoris; Z95.2 Presence of prosthetic heart valve; E11.9 Type 2 diabetes mellitus without complications; F31.81 Bipolar II disorder

== ENCOUNTER 2020-12-07 05:27 | Emergency (ER) | payer MEDICARE, MEDICAID ==
[~2020-12-07] VITALS: Ht 165.1 cm; Wt 86.4 kg
[~2020-12-07 05:27] MED LIST changes: +ACET-683 PO; +ASPI81TA26 PO; +COMMENTS; +FLUO20CA22 PO
[2020-12-07] MEDS ORDERED: MORPHINE 4 MG/ML 1ML VIAL/SYRINGE (J2270) IV ONE (06:15)
[2020-12-07] MEDS ORDERED: ONDANSETRON 4MG/2ML VIAL IV ONE (06:15)
[2020-12-07] MEDS ORDERED: ACETAMINOPHEN *IV* 1,000 MG in IV 1 EA IV ONE (06:15)
[2020-12-07 06:45] LABS: HEMATOCRIT 41.3 % (36.0-47.0); HEMOGLOBIN 13.5 g/dl (12.0-15.5); MEAN CORPUSCULAR HEMOGLOBIN 29.5 pg (27.0-33.0); MEAN CORPUSCULAR HGB CONC 32.7 g/dl (32.0-36.5); MEAN CORPUSCULAR VOLUME 90.4 fl (80.0-96.0); PLATELET COUNT, AUTOMATED 263 10^3/uL (150-450); RED BLOOD COUNT 4.57 10^6/uL (4.00-5.40); WHITE BLOOD COUNT 8.4 10^3/uL (4.0-10.0)
--- NOTE | 2020-12-07 07:16 | REPVR ---
PROCEDURE INFORMATION: Exam: CT Head Without Contrast Exam date and time: 12/07/2020 6:21 AM Age: 60 years old Clinical indication: Injury or trauma; Fall; Blunt trauma (contusions or hematomas); Additional info: Falls, struck head, pain occiput TECHNIQUE: Imaging protocol: Computed tomography of the head without contrast. Radiation optimization: All CT scans at this facility use at least one of these dose optimization techniques: automated exposure control; mA and/or kV adjustment per patient size (includes targeted exams where dose is matched to clinical indication); or iterative reconstruction. COMPARISON: CT Head without contrast 11/15/2020 7:46 AM FINDINGS: Brain: There is no acute intracranial abnormality. Mild small vessel ischemic changes are seen. There is no mass, midline shift, or mass effect. Jara-white matter differentiation is preserved. There is no evidence of hemorrhage. There is no extra-axial fluid collection. Basal cisterns are patent. Cerebral ventricles: Mild prominence of ventricles and sulci representing volume loss. The Bones/joints: The visualized osseous structures are unremarkable. Paranasal sinuses: Visualized sinuses are clear. Mastoid air cells: Mastoid air cells are clear. Soft tissues: Unremarkable. IMPRESSION: 1. Mild volume loss and small vessel ischemic changes. . 2. No acute intracranial abnormality. Electronically signed by: Chayo Nunez On 12/07/2020 07:15:28 AM
--- NOTE | 2020-12-07 07:20 | REPVR ---
PROCEDURE INFORMATION: Exam: CT Cervical Spine Without Contrast Exam date and time: 12/07/2020 6:21 AM Age: 60 years old Clinical indication: Injury or trauma; Fall; Blunt trauma; Additional info: Falls, struck head, pain occiput TECHNIQUE: Imaging protocol: Computed tomography images of the cervical spine without contrast. Radiation optimization: All CT scans at this facility use at least one of these dose optimization techniques: automated exposure control; mA and/or kV adjustment per patient size (includes targeted exams where dose is matched to clinical indication); or iterative reconstruction. COMPARISON: CT Spine,cervical w/o contrast 05/10/2020 10:24 PM FINDINGS: Bones/joints: Status post anterior fusion and disc spacer placement at C5-C7. Demineralization of the bones. Degenerative changes. No acute finding. Vertebral heights are maintained. Discs/Spinal canal/Neural foramina: No significant central spinal canal stenosis. Lungs: Lung apices are normal. Soft tissues: Unremarkable. IMPRESSION: No acute finding. Electronically signed by: Chayo Nunez On 12/07/2020 07:19:46 AM
[2020-12-07 07:31] LABS: ALBUMIN 3.5 GM/DL (3.2-5.2); ALT/SGPT 14 U/L (12-78); BILIRUBIN,TOTAL 0.2 MG/DL (0.2-1.0); BLOOD UREA NITROGEN 14 MG/DL (7-18); CALCIUM LEVEL 9.4 MG/DL (8.5-10.1); CARBON DIOXIDE LEVEL 27 MEQ/L (21-32); CHLORIDE LEVEL 103 MEQ/L (98-107); CK-MB VALUE MASS < 1.0 NG/ML (<3.6); CPK CREATINE PHOSPHOKINASE 108 U/L (26-192); CREATININE FOR GFR 1.04 MG/DL (0.55-1.30); GLOMERULAR FILTRATION RATE 57.7 (>51); GLUCOSE, FASTING 94 MG/DL (70-100); MB/CK RELATIVE INDEX 0.93 (< OR =4); POTASSIUM SERUM 4.9 MEQ/L (3.5-5.1); SODIUM LEVEL 133 MEQ/L (136-145); TOTAL PROTEIN 7.6 GM/DL (6.4-8.2); TROPONIN I 0.02 NG/ML (< 0.10)
--- NOTE | 2020-12-07 07:42 | ECGEPIP ---
[facility] - ED Test Date: 2020-12-07 Pat Name: ANISH OHARA Department: Room: - Gender: Female [employer] Operator: SAL : 1960 Requested By: Sunil Harper Order Number: [id number] Reading MD: Irasema Miramontes Measurements Intervals [place] Rate: 77 P: 60 NC: 200 QRS: -84 QRSD: 148 T: 36 QT: 430 QTc: 486 Interpretive Statements Normal sinus rhythm Right bundle branch block Left anterior fascicular block Bifascicular block Possible Lateral infarct , age undetermined Electronically Signed on 12-07-2020 7:42:31 EDT by Irasema Miramontes
[2020-12-07 08:32] VITALS: BP 148/72
[2020-12-08] MEDS ORDERED: ROBA750T4 PO ×2 (11:47→11:56)
== END 2020-12-07 09:17 | disposition home or self-care (01) ==
LOC: M ED 05:27
DX: R51.9 Headache, unspecified (principal); I44.4 Left anterior fascicular block; I45.2 Bifascicular block; I45.10 Unspecified right bundle-branch block; M54.2 Cervicalgia; R53.1 Weakness; R29.6 Repeated falls; I25.10 Atherosclerotic heart disease of native coronary artery without angina pectoris; I10 Essential (primary) hypertension; J44.9 Chronic obstructive pulmonary disease, unspecified; E78.5 Hyperlipidemia, unspecified; K21.9 Gastro-esophageal reflux disease without esophagitis; M79.2 Neuralgia and neuritis, unspecified; F17.200 Nicotine dependence, unspecified, uncomplicated
CPT/HCPCS: 70450; 72125; 80053; 82550; 82553; 84484; 85027; 93005; 96374; 96375; 99284; J0131; J2270; J2405

== ENCOUNTER 2020-12-08 08:18 | Emergency (ER) | payer MEDICARE, MEDICAID ==
[~2020-12-08] VITALS: Ht 165.1 cm; Wt 86.4 kg
[2020-12-08] MEDS ORDERED: KETOROLAC 30 MG/ML 1ML VIAL IM ONE (09:20)
[2020-12-08] MEDS ORDERED: NS 500 ML IV ONE (09:20)
[2020-12-08] MEDS ORDERED: METOCLOPRAMIDE INJ 10MG/2ML VIAL (J2765 PER 1) IV ONE (09:20)
[2020-12-08] MEDS ORDERED: methocarbamoL 750 MG TAB PO ONE (09:25)
[2020-12-08] MEDS ORDERED: ACETAMINOPHEN 325 MG TAB PO ONE (09:30)
[2020-12-08] MEDS ORDERED: ROBA750T4 PO ×2 (11:47→11:56)
[2020-12-08 12:19] VITALS: BP 162/79
== END 2020-12-08 12:23 | disposition home or self-care (01) ==
LOC: M ED 08:18 → EDBD 08:18 → M ED 12:23
DX: R51.9 Headache, unspecified (principal); I25.10 Atherosclerotic heart disease of native coronary artery without angina pectoris; E11.9 Type 2 diabetes mellitus without complications; I10 Essential (primary) hypertension; J44.9 Chronic obstructive pulmonary disease, unspecified; F32.9 Major depressive disorder, single episode, unspecified; E78.5 Hyperlipidemia, unspecified; K21.9 Gastro-esophageal reflux disease without esophagitis; M79.2 Neuralgia and neuritis, unspecified; Z95.5 Presence of coronary angioplasty implant and graft; F17.200 Nicotine dependence, unspecified, uncomplicated; Z79.82 Long term (current) use of aspirin; Z79.899 Other long term (current) drug therapy; Z88.7 Allergy status to serum and vaccine; Z88.8 Allergy status to other drugs, medicaments and biological substances
CPT/HCPCS: 96361; 96374; 99284; J2765

== ENCOUNTER 2020-12-15 10:22 | Emergency (ER) | payer MEDICARE, MEDICAID ==
[~2020-12-15] VITALS: Ht 165.1 cm; Wt 86.4 kg
[2020-12-15] MEDS ORDERED: ACETAMINOPHEN 500 MG TAB PO ONE (10:45)
[2020-12-15] MEDS ORDERED: diphenhydrAMINE 50MG/ML VIAL (J1200) IV ONE (10:45)
[2020-12-15] MEDS ORDERED: NS 1,000 ML IV ONE (10:45)
[2020-12-15 11:46] LABS: BASO # 0.1 10^3/uL (0.0-0.2); BASO % 0.6 % (0.0-1.0); EOS # 0.2 10^3/uL (0.0-0.5); EOS % 1.8 % (0.0-3.0); HEMATOCRIT 42.7 % (36.0-47.0); HEMOGLOBIN 13.7 g/dl (12.0-15.5); LYMPH # 2.3 10^3/uL (1.5-5.0); LYMPH % 27.7 % (24.0-44.0); MEAN CORPUSCULAR HEMOGLOBIN 29.2 pg (27.0-33.0); MEAN CORPUSCULAR HGB CONC 32.1 g/dl (32.0-36.5); MONO # 0.6 10^3/uL (0.0-0.8); MONO % 7.4 % (2.0-8.0); NEUTROPHILS # 5.1 10^3/uL (1.5-8.5); NEUTROPHILS % 62.1 % (36.0-66.0); PLATELET COUNT, AUTOMATED 230 10^3/uL (150-450); RED BLOOD COUNT 4.69 10^6/uL (4.00-5.40); WHITE BLOOD COUNT 8.2 10^3/uL (4.0-10.0)
[2020-12-15 12:04] LABS: BLOOD UREA NITROGEN 15 MG/DL (7-18); C REACTIVE PROTEIN QUANTITATIV 0.37 MG/DL (0.00-0.30); CALCIUM LEVEL 9.6 MG/DL (8.5-10.1); CARBON DIOXIDE LEVEL 24 MEQ/L (21-32); CHLORIDE LEVEL 108 MEQ/L (98-107); CREATININE FOR GFR 0.95 MG/DL (0.55-1.30); GLOMERULAR FILTRATION RATE > 60.0 (>51); GLUCOSE, FASTING 117 MG/DL (70-100); POTASSIUM SERUM 4.6 MEQ/L (3.5-5.1); SODIUM LEVEL 140 MEQ/L (136-145)
[2020-12-15 12:19] LABS: ERYTHROCYTE SEDIMENTATION RATE 25 mm/hr (0-30)
[2020-12-15] MEDS ORDERED: dexameTHASONE 4 MG/ML 1ML VIAL (J1100 PER 1MG) IV ONE (12:45)
[2020-12-15] MEDS ORDERED: METOCLOPRAMIDE INJ 10MG/2ML VIAL (J2765 PER 1) IV ONE (12:45)
[2020-12-15 15:38] VITALS: BP 160/92
== END 2020-12-15 15:40 | disposition home or self-care (01) ==
LOC: M ED 10:22 → EDBD 10:22 → M ED 15:40
DX: G43.909 Migraine, unspecified, not intractable, without status migrainosus (principal); I25.10 Atherosclerotic heart disease of native coronary artery without angina pectoris; I25.2 Old myocardial infarction; I10 Essential (primary) hypertension; K21.9 Gastro-esophageal reflux disease without esophagitis; M54.81 Occipital neuralgia; G50.0 Trigeminal neuralgia; Z95.5 Presence of coronary angioplasty implant and graft; M43.22 Fusion of spine, cervical region; F17.200 Nicotine dependence, unspecified, uncomplicated; Z79.82 Long term (current) use of aspirin; Z79.899 Other long term (current) drug therapy; Z88.7 Allergy status to serum and vaccine; Z88.8 Allergy status to other drugs, medicaments and biological substances
CPT/HCPCS: 80048; 85025; 85652; 86140; 96361; 96374; 96375; 99284; J1100; J1200

== ENCOUNTER 2020-12-20 08:42 | Emergency (ER) | payer MEDICARE, MEDICAID ==
[~2020-12-20] VITALS: Ht 165.1 cm; Wt 93.6 kg
[2020-12-20] MEDS ORDERED: TRAM50TA2 PO (09:07)
[2020-12-20] MEDS ORDERED: METF10004 PO (09:07)
[2020-12-20] MEDS ORDERED: RISP0.253 PO (09:07)
[2020-12-20] MEDS ORDERED: diphenhydrAMINE 50MG/ML VIAL (J1200) IV STA (09:22)
[2020-12-20] MEDS ORDERED: KETOROLAC 30 MG/ML 1ML VIAL IV ONE (09:25)
[2020-12-20] MEDS ORDERED: METOCLOPRAMIDE INJ 10MG/2ML VIAL (J2765 PER 1) IV ONE (09:25)
[2020-12-20 09:30] LABS: BASO % 0.5 % (0.0-1.0); EOS # 0.3 10^3/uL (0.0-0.5); EOS % 4.5 % (0.0-3.0); HEMATOCRIT 42.7 % (36.0-47.0); HEMOGLOBIN 13.6 g/dl (12.0-15.5); LYMPH # 2.8 10^3/uL (1.5-5.0); LYMPH % 37.1 % (24.0-44.0); MEAN CORPUSCULAR HEMOGLOBIN 29.2 pg (27.0-33.0); MEAN CORPUSCULAR HGB CONC 31.9 g/dl (32.0-36.5); MEAN CORPUSCULAR VOLUME 91.6 fl (80.0-96.0); MONO # 0.4 10^3/uL (0.0-0.8); NEUTROPHILS # 3.9 10^3/uL (1.5-8.5); NEUTROPHILS % 52.4 % (36.0-66.0); PLATELET COUNT, AUTOMATED 206 10^3/uL (150-450); RED BLOOD COUNT 4.66 10^6/uL (4.00-5.40); WHITE BLOOD COUNT 7.5 10^3/uL (4.0-10.0)
[2020-12-20 10:02] LABS: ALBUMIN 3.5 GM/DL (3.2-5.2); ALT/SGPT 26 U/L (12-78); BILIRUBIN,DIRECT < 0.1 MG/DL (0.0-0.2); BILIRUBIN,TOTAL 0.2 MG/DL (0.2-1.0); LIPASE 142 U/L (73-393); MAGNESIUM LEVEL 1.9 MG/DL (1.8-2.4); TOTAL PROTEIN 7.4 GM/DL (6.4-8.2); VALPROIC ACID (DEPAKOTE) 98.8 UG/ML (50.0-100.0)
[2020-12-20] MEDS ORDERED: PROMETHAZINE INJ 25 MG/ML VIAL (J2550) IV ONE (10:35)
[2020-12-20 12:12] VITALS: BP 158/89
--- NOTE | 2020-12-21 15:34 | ECGEPIP ---
[facility] - ED Test Date: 2020-12-20 Pat Name: ANISH OHARA Department: Room: - Gender: Female Reporter: BENJAMIN : 1960 Requested By: Irasema Miramontes Order Number: [id number] Reading MD: Victor Hugo Dinh Measurements Intervals [place] Rate: 81 P: 91 ND: 198 QRS: -87 QRSD: 142 T: 6 QT: 412 QTc: 478 Interpretive Statements Normal sinus rhythm Right bundle branch block Left anterior fascicular block Bifascicular block Possible Lateral infarct , age undetermined Similar to tracing done 12-07-20 Electronically Signed on 12-21-2020 15:34:12 EDT by Victor Hugo Dinh
== END 2020-12-20 12:16 | disposition home or self-care (01) ==
LOC: M ED 08:42
DX: G43.909 Migraine, unspecified, not intractable, without status migrainosus (principal); I45.10 Unspecified right bundle-branch block; I44.5 Left posterior fascicular block; I45.2 Bifascicular block; I25.10 Atherosclerotic heart disease of native coronary artery without angina pectoris; E11.9 Type 2 diabetes mellitus without complications; I10 Essential (primary) hypertension; M54.9 Dorsalgia, unspecified; F31.9 Bipolar disorder, unspecified; Z95.5 Presence of coronary angioplasty implant and graft; F17.200 Nicotine dependence, unspecified, uncomplicated; Z79.02 Long term (current) use of antithrombotics/antiplatelets; Z79.82 Long term (current) use of aspirin; Z79.899 Other long term (current) drug therapy; Z88.8 Allergy status to other drugs, medicaments and biological substances; Z88.7 Allergy status to serum and vaccine
CPT/HCPCS: 80047; 80076; 80164; 83690; 83735; 85025; 93005; 93041; 96374; 96375; 99285; J1200; J1885; J2765

== ENCOUNTER 2021-01-15 09:15 | Inpatient (IN) | payer MEDICARE, MEDICAID ==
[~2021-01-15] VITALS: Ht 165.1 cm; Wt 87.5 kg
[~2021-01-15 09:15] MED LIST changes: +GABA-283 PO; -GABA-845 PO; +RISP0.253 PO; +excedrin PO
[2021-01-15] MEDS ORDERED: GABA600T4 (09:25)
[2021-01-15 11:53] LABS: HEMATOCRIT 51.8 % (36.0-47.0); HEMOGLOBIN 16.5 g/dl (12.0-15.5); MEAN CORPUSCULAR HEMOGLOBIN 29.9 pg (27.0-33.0); MEAN CORPUSCULAR HGB CONC 31.9 g/dl (32.0-36.5); MEAN CORPUSCULAR VOLUME 93.8 fl (80.0-96.0); PLATELET COUNT, AUTOMATED 267 10^3/uL (150-450); RED BLOOD COUNT 5.52 10^6/uL (4.00-5.40); WHITE BLOOD COUNT 9.3 10^3/uL (4.0-10.0)
[2021-01-15 12:21] LABS: AMPHETAMINES LEVEL URINE NEGATIVE (NEGATIVE); BARBITURATES URINE NEGATIVE (NEGATIVE); BENZODIAZEPINES URINE NEGATIVE (NEGATIVE); CANNABINOIDS URINE NEGATIVE (NEGATIVE); COCAINE METABOLITE URINE NEGATIVE (NEGATIVE); METHADONE URINE NEGATIVE (NEGATIVE); OPIATES URINE NEGATIVE (NEGATIVE); PHENCYCLIDINE URINE NEGATIVE (NEGATIVE)
[2021-01-15 12:34] LABS: ACETAMINOPHEN LEVEL < 2.0 UG/ML (10.0-30.0); ALBUMIN 3.9 GM/DL (3.2-5.2); ALT/SGPT 24 U/L (12-78); BILIRUBIN,DIRECT < 0.1 MG/DL (0.0-0.2); BILIRUBIN,TOTAL 0.2 MG/DL (0.2-1.0); BLOOD UREA NITROGEN 18 MG/DL (7-18); CARBON DIOXIDE LEVEL 26 MEQ/L (21-32); CHLORIDE LEVEL 108 MEQ/L (98-107); CREATININE FOR GFR 0.96 MG/DL (0.55-1.30); ETHYL ALCOHOL (ETHANOL) < 0.003 % (0.000-0.010); GLOMERULAR FILTRATION RATE > 60.0 (>51); GLUCOSE, FASTING 112 MG/DL (70-100); POTASSIUM SERUM 4.7 MEQ/L (3.5-5.1); SALICYLATE LEVEL 7.1 MG/DL (5.0-30.0); SODIUM LEVEL 139 MEQ/L (136-145); THYROID STIMULATING HORMONE 0.831 uIU/ML (0.358-3.740)
[2021-01-15 15:54] LABS: RSV AMPLIFICATION NEGATIVE (NEGATIVE)
[2021-01-15] MEDS ORDERED: tiZANidine 4 MG TAB PO ONE (16:10)
[2021-01-15] MEDS ORDERED: ACETAMINOPHEN TAB 650MG DOSE (2X325MG) PO PRN (16:10)
[2021-01-15] MEDS ORDERED: MAALOX 30 ML SUSP *UDC PO PRN (16:10)
[2021-01-15] MEDS ORDERED: EXCEDRIN MIGRAINE TABLET PO PRN (16:10)
[2021-01-15] MEDS ORDERED: traZODone 50 MG TAB PO PRN (16:10)
[2021-01-15] MEDS ORDERED: MOM 30ML SUSPENSION UDC PO PRN (16:10)
[2021-01-15] MEDS ORDERED: traMADol 50 MG TAB PO PRN (16:10)
[2021-01-15 18:09] VITALS: BP 131/78
[2021-01-15] MEDS ORDERED: METF10004 PO (18:46)
[2021-01-15] MEDS ORDERED: SUMA100T2 PO (18:46)
[2021-01-15] MEDS ORDERED: EXCETAB33 PO (18:46)
[2021-01-15] MEDS ORDERED: LISI40TA4 PO (18:46)
[2021-01-15] MEDS ORDERED: TIZA4TAB4 PO (18:46)
[2021-01-15] MEDS ORDERED: TRAZ1TAB10 PO (18:46)
[2021-01-15] MEDS ORDERED: CYCL-707 PO (18:46)
[2021-01-15] MEDS ORDERED: DIVA500T94 PO (18:46)
[2021-01-15] MEDS ORDERED: GABA600T4 PO (18:46)
[2021-01-15] MEDS ORDERED: TRAM50TA2 PO (18:46)
[2021-01-15] MEDS ORDERED: FLUO20CA20 PO (18:46)
[2021-01-15] MEDS ORDERED: BENZTROPINE 2 MG TAB PO ONE ×2 (21:00)
[2021-01-15] MEDS ORDERED: metFORMIN (GLUCOPHAGE) 1000 MG TABLET PO ONE (21:00)
[2021-01-15] MEDS ORDERED: DIVALPROEX 500MG *ER* TAB PO ONE ×2 (21:00)
[2021-01-15] MEDS ORDERED: GABAPENTIN 300 MG CAP PO ONE (21:00)
[2021-01-15] MEDS: GABAPENTIN 300 MG CAP PO SCH (21:48)
[2021-01-16 06:14] VITALS: BP 144/87
[2021-01-16] MEDS ORDERED: FLUoxetine 20 MG CAP PO ONE (09:00)
[2021-01-16] MEDS ORDERED: lisinopriL 40 MG TAB PO ONE (09:00)
[2021-01-16] MEDS: metFORMIN (GLUCOPHAGE) 1000 MG TABLET PO SCH ×2 (09:07→17:22)
[2021-01-16] MEDS: tiZANidine 4 MG TAB PO PRN (09:07)
[2021-01-16] MEDS: GABAPENTIN 300 MG CAP PO SCH ×3 (09:07→21:00)
[2021-01-16] MEDS: DIVALPROEX 500 MG TAB PO SCH (09:07)
[2021-01-16] MEDS: FLUoxetine 20 MG CAP PO SCH (09:08)
[2021-01-16] MEDS: ACETAMINOPHEN TAB 650MG DOSE (2X325MG) PO PRN (09:09)
--- NOTE | 2021-01-16 11:02 | HPEPDOC ---
[facility] Medical History & Physical Date of Admission January 15, 2021 Date of Service: January 16, 2021 Attending Physician: Juliana Grant MD History and Physical MEDICAL H&P HISTORY OF PRESENT ILLNESS: Patient is a 60-year-old female with past medical history of MDD, bipolar disorder, TMJ, chronic headaches, tobacco use, hypertension, diabetes mellitus, migraine headaches, CAD, chronic neck and back pain / C5-7 fusion who was admitted on 01/15/2021 to inpatient mental health for unspecified depressive disorder. The patient has been having suicidal thoughts she states secondary to her chronic pain being uncontrolled. She's had neuralgia, TMJ and chronic head and neck pain secondary to cervical fusion for over 5 years this point. She follows with neurology as outpatient and states she has never had good control for her pain. She told people in the emergency room that she "wanted to ". She is still saying not stay on examination by myself. She display signs of increased depression, increased loneliness, tearfulness, poor sleep, poor appetite, helplessness/hopelessness. She denies homicidal ideation, visual hallucinations, auditory hallucinations. The patient was often difficult to direct during her conversation and would display signs of increased anxiety at times. For her chronic issues with her job the patient states she has tried Botox in the past and there were supposed to send her to see a specialist at some point. There are reports of her being noncompliant with the recommendations that her neurologist has made. Currently she is hemodynamically stable. He denies diarrhea, nausea, vomiting, fevers, chills, chest pain, increased shortness of breath. REVIEW OF SYSTEMS: Neg except mentioned above PAST MEDICAL HISTORY: Migraine headaches Chronic neck and back pain / C5-7 fusion Chronic HTN NIDM2 CAD w placement of 2 stents Bipolar II Disorder MDD PAST SURGICAL HISTORY: Cervical neck fusion C5-7 with hardware Left kidney tumor removal Cardiac stent placement FAMILY HISTORY: Father: Healthy. at 64 years old Mother: Breast cancer, CAD. Alive SOCIAL HISTORY: Smoker half pack per day for the past 10 years. She denies alcohol or drug use. Primary care doctor is Dr. Guillen. She also follows with the behavior health psychiatrist and neurologist in the community. She is a full code. ALLERGIES: Please see below. HOME MEDICATIONS: Please see below. PHYSICAL EXAMINATION: VS: Please see below CONSTITUTIONAL: At times tearful but in bed, NAD, AAO x 3 EYES: PERRLA, EOM intact HENT, MOUTH: Normocephalic, atraumatic, moist mucous membranes NECK: SUPPLE, no JVD, no lymphadenopathy, no carotid bruit CV: Regular rate and rhythm, S1S2 normal, no murmurs/rubs/gallops RESPIRATORY: Clear to auscultation bilaterally, no rales/rhonchi/wheezes GI: obese abd, BS positive in 4 quadrants, soft, nontender, nondistended, no rebound or guarding, no organomegaly : Deferred MUSCULOSKELETAL: Normal ROM. No cyanosis, clubbing, swelling, joint deformity, extremity edema INTEGUMENTARY: Intact, no rashes, no lesions, no erythema NEUROLOGIC: Cranial Nerves II-XII are intact, no focal deficits PSYCHIATRIC: Mood and affect are normal LABORATORY DATA: Please see below IMAGING: None ASSESSMENT: 60 y/o F admitted to [facility] for unspecified depressive disorder. PLAN: Unspecified depressive disorder / MDD / suicidal ideation -Plan per psychiatry team Migraine headaches -Chronic -c/w home meds Chronic neck and back pain / C5-7 fusion -c/w home meds Chronic HTN -Stable -C/w home med NIDM2 -c/w metformin CAD w placement of 2 stents -C/w ASA, statin DISPOSITION: Thank you kindly for this consult. We will sign off at this time. Please let us know if we are needed to reevaluate. Vital Signs Vital Signs Date Time Temp Pulse Resp B/P (MAP) Pulse Ox O2 Delivery O2 Flow Rate FiO2 01/16/21 09:27 Room Air 01/16/21 09:06 144/87 01/16/21 06:14 97.6 91 14 95 Laboratory Data Labs 24H Laboratory Tests 2 01/15/21 11:39: Anion Gap 5L, Glomerular Filtration Rate > 60.0, Calcium Level 11.0H, Total Bilirubin 0.2, Direct Bilirubin < 0.1, Aspartate Amino Transf (AST/SGOT) 16, Alanine Aminotransferase (ALT/SGPT) 24, Alkaline Phosphatase 104, Total Protein 8.0, Albumin 3.9, Albumin/Globulin Ratio 1.0L, Thyroid Stimulating Hormone (TSH) 0.831, Salicylates Level 7.1, Acetaminophen Level < 2.0L, Ethyl Alcohol Level < 0.003 01/15/21 11:40: Nucleated Red Blood Cells % (auto) 0.0 01/15/21 11:42: Urine Opiates Screen NEGATIVE, Urine Methadone Screen NEGATIVE, Urine Barbiturates Screen NEGATIVE, Urine Phencyclidine Screen NEGATIVE, Urine Amphetamines Screen NEGATIVE, Urine Benzodiazepines Screen NEGATIVE, Urine Cocaine Metabolite Screen NEGATIVE, Urine Cannabinoids Screen NEGATIVE 01/15/21 14:42: Coronavirus (COVID-19)(PCR) NEGATIVE, Influenza Type A (RT-PCR) NEGATIVE, Influenza Type B (RT-PCR) NEGATIVE, Respiratory Syncytial Virus (PCR) NEGATIVE 01/15/21 19:32: Valproic Acid (Depakene) Level < 3.0L CBC/BMP Laboratory Tests 01/15/21 11:39 01/15/21 11:40 Home Medications Scheduled Divalproex Sodium (Divalproex Sodium) 500 Mg Tablet.dr, 500 MG PO DAILY for . Gabapentin (Gabapentin) 600 Mg Tablet, 600 MG PO TID for PAIN Lisinopril (Lisinopril) 40 Mg Tablet, 40 MG PO DAILY for BP Metformin HCl (Metformin HCl) 1,000 Mg Tablet, 1,000 MG PO BID for DIABETES Scheduled PRN Aspirin/Acetaminophen/Caffeine (Excedrin Migraine Caplet) 1 Each Tablet, 2 TAB- CAP PO Q6H PRN for HEADACHE Cyclobenzaprine HCl (Cyclobenzaprine HCl) 10 Mg Tablet, 10 MG PO TID PRN for MUSCLE SPASMS Fluoxetine Hcl (Fluoxetine HCl) 20 Mg Capsule, 20 MG PO DAILY PRN for MOOD Sumatriptan Succinate (Sumatriptan Succinate) 100 Mg Tablet, 100 MG PO ASDIRECT ED PRN for MIGRAINE may repeat in 2 hours; do not exceed 200 mg in 24 hours Tizanidine HCl (Tizanidine HCl) 4 Mg Tablet, 4 MG PO QHS PRN for MUSCLE SPASMS Tramadol HCl (Tramadol HCl) 50 Mg Tablet, 50 MG PO TID PRN for PAIN Trazodone HCl (Trazodone HCl) 50 Mg Tablet, 50 MG PO QHS PRN for SLEEP Allergies Coded Allergies: Tetanus Vaccines and Toxoid (Verified Allergy, Unknown, 06/26/20) metoprolol (Verified Adverse Reaction, Severe, SECOND DEGREE HEART BLOCK, 11/15/20) A-FIB/CHADSVASC A-FIB History Current/History of A-Fib/PAF?: No Current PO Anticoag Therapy: No Age/Risk Factor Scoring CHADSVASC: CHADSVASC Response (Comments) Value Age Risk Factor Age < 65 years old 0 Gender Risk Factor Female 1 Hx of CHF No 0 Hx of HTN Yes 1 Hx of Stroke/TIA/or VTE No 0 Hx of Diabetes Yes 1 Hx of Vascular Disease No 0 Total 3 Treatment Treatment ordered: NONE Other anticoagulant ordered: none Juliana Grant MD January 16, 2021 11:02
[2021-01-16] MEDS: traMADol 50 MG TAB PO PRN (14:42)
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
[2021-01-16 17:36] VITALS: BP 149/87
[2021-01-17 06:43] VITALS: BP 166/88
[2021-01-17] MEDS: metFORMIN (GLUCOPHAGE) 1000 MG TABLET PO SCH ×2 (08:59→17:06)
[2021-01-17] MEDS: FLUoxetine 20 MG CAP PO SCH (09:00)
[2021-01-17] MEDS: DIVALPROEX 500 MG TAB PO SCH (09:00)
[2021-01-17] MEDS: tiZANidine 4 MG TAB PO PRN (09:01)
[2021-01-17] MEDS: GABAPENTIN 300 MG CAP PO SCH ×3 (09:01→20:52)
[2021-01-17] MEDS: traMADol 50 MG TAB PO PRN ×2 (09:02→20:53)
--- NOTE | 2021-01-17 20:17 | MHIPNPDOC ---
[facility] Progress Note Progress Note DATE OF SERVICE: 01/17/21 HISTORY: As per previous notes: " Patient is a 60 -year-old , female, who was admitted to [facility] on legal status after reporting increased pain and intrusive thoughts of SI due to severe migraines. I don't have a plan because I can't even make a rational decision, I feel like I have been suffering so bad. She becomes very tearful in the interview reporting that her migraines have become severe and states that this Trigeminal Neuralgia is getting worse. " VITAL SIGNS: See below. NEW TEST RESULTS: See below CURRENT MEDICATIONS: See below. ASSESSMENT: The patient refused to speak with this insurance underwriter sales, I couldn't assess her. I will try again tomorrow MANAGEMENT PLAN: As per Bettye Millard TIME SPENT: 0 minutes. Vital Signs Vital Signs Date Time Temp Pulse Resp B/P (MAP) Pulse Ox O2 Delivery O2 Flow Rate FiO2 01/17/21 09:56 16 01/17/21 09:01 166/88 01/17/21 06:43 98.0 99 100 Room Air Current Medications Current Medications Medications (Trade) Dose Ordered Sig/Rao Route PRN Reason Start Time Stop Time Status Last Admin Dose Admin Acetaminophen (Tylenol Tab) 650 mg Q6HP PRN PO HEADACHE or DISCOMFORT 01/15/21 16:10 01/15/21 17:52 DC Acetaminophen (Tylenol Tab) 650 mg Q6HP PRN PO HEADACHE or DISCOMFORT 01/15/21 17:45 01/16/21 09:09 Acetaminophen/ Aspirin/Caffeine (Excedrin Migraine) 2 ea TIDP PRN PO HEADACHE 01/15/21 16:10 01/15/21 17:52 DC Acetaminophen/ Aspirin/Caffeine (Excedrin Migraine) 2 ea TIDP PRN PO HEADACHE 01/15/21 17:45 Al Hydrox/Mg Hydrox/Simethicone (Mylanta) 30 ml Q4HP PRN PO HEARTBURN/INDIGESTION 01/15/21 16:10 Divalproex Sodium (Depakote) 500 mg DAILY PO 01/16/21 09:00 01/17/21 09:00 Fluoxetine HCl (PROzac) 20 mg DAILY PO 01/16/21 09:00 01/17/21 09:00 Gabapentin (Neurontin) 600 mg TID PO 01/15/21 21:00 01/17/21 16:43 Home Med (Med Rec Complete!) ASDIRECTED XX 01/15/21 18:50 01/15/21 18:48 DC Lisinopril (Prinivil) 40 mg DAILY PO 01/16/21 09:00 01/17/21 09:01 Magnesium Hydroxide (Milk Of Magnesia) 30 ml DAILYPRN PRN PO CONSTIPATION 01/15/21 16:10 Metformin HCl (Glucophage) 1,000 mg BID@0800,1800 PO 01/16/21 08:00 01/17/21 17:06 Tizanidine HCl (Zanaflex) 4 mg TIDP PRN PO MUSCLE SPASMS 01/15/21 16:10 01/17/21 09:01 Tramadol HCl (Ultram) 50 mg Q4HP PRN PO MODERATE PAIN (PS 5-7) 01/15/21 16:10 01/15/21 17:52 DC Tramadol HCl (Ultram) 50 mg Q4HP PRN PO MODERATE PAIN (PS 5-7) 01/15/21 17:45 01/17/21 09:02 Trazodone HCl (Desyrel) 50 mg QHSP PRN PO INSOMNIA 01/15/21 16:10 Allergies Coded Allergies: Tetanus Vaccines and Toxoid (Verified Allergy, Unknown, 06/26/20) metoprolol (Verified Adverse Reaction, Severe, SECOND DEGREE HEART BLOCK, 11/15/20) MYKE VALENCIA MD January 17, 2021 20:17
[2021-01-18 05:35] VITALS: BP 105/56
[2021-01-18] MEDS: metFORMIN (GLUCOPHAGE) 1000 MG TABLET PO SCH ×2 (07:53→17:31)
[2021-01-18 09:28] VITALS: BP 105/56
[2021-01-18] MEDS: GABAPENTIN 300 MG CAP PO SCH ×3 (09:28→21:00)
[2021-01-18] MEDS: DIVALPROEX 500 MG TAB PO SCH (09:28)
[2021-01-18] MEDS: EXCEDRIN MIGRAINE TABLET PO PRN ×2 (09:28→16:14)
[2021-01-18] MEDS: FLUoxetine 20 MG CAP PO SCH (09:28)
--- NOTE | 2021-01-18 19:22 | MHIPNPDOC ---
[facility] Progress Note Progress Note DATE OF SERVICE: 01/18/21 HISTORY: As per ED report: " Pt self presents to [facility] due to increased pain and intrusive thoughts of SI. Pt reports currently no plan "I just want to quickly". Pt reports that she has had chronic pain for about 5 years ever since she was diagnosed with Trigeminal Neuralgia. Pt reports increased depression due to not being able to control pain, pt reports being compliant with her pain meds which include, Gabapentin and Tramadol pt reports that neither of these medications seem to control her pain. Pt reports noncompliance with pain management because, she felt as though it wasn't helping. Pt does report that she does have a new appointment this month and is more hopeful that they will be better equipped at controlling her pain. Pt reports living by herself and feels very lonely. Pt reports that she often thinks about not wanting to live by herself however, is unable to live with her 81 year old mother at this time. Pt reports that she is currently not thinking about assisted living/detention. Pt is very tearful and often times has to be redirected because, she is very fixated on pain. Pt denies HI/VH/AH. Pt reports poor appetite and sleep due to chronic pain. Pt does not appear to be psychotic at this time." VITAL SIGNS: See below. NEW TEST RESULTS: See below CURRENT MEDICATIONS: See below. MENTAL STATUS EXAMINATION: General Appearance: unkempt, disheveled, appears stated age, hospital scrubs/clothing Build: overweight Demeanor: Cooperative, pleasant but a little bit withdrawn Eye Contact: fair Activity: slowed Behavior: cooperative, withdrawn Speech: spontaneous, normal volume, other (monotone) Mood: depressed, anxious Affect: flat Thought Process: logical/linear, other Thought Content (Delusions): none reported Thought Content (Other): none reported Thought Content (Aggressive): none reported Perception (Hallucinations): none reported Perception (Other): none reported Cognition(Intelligence Est.): average Oriented: Awake, Alert, Oriented times three Insight: fair Judgment: Fair Psychosis: Denies Diagnoses Bipolar Disorder Nicotine Use Disorder ASSESSMENT: Fernanda has a long-standing history of migraines and depression associated with them. She has been admitted to our unit several times always with the same complaint. She has been taking Prozac for 3 days at the inpatient mental health unit and she reports taking it for a long period of time but she doesn't feel any benefit from it. I proposed to start venlafaxine because this medication is being utilized for migraines settings, so I'm hoping that it will help her with anxiety, depression and migraines and hopefully we will be able to help control that illness. At this time she is not in danger to self or others. MANAGEMENT PLAN: As above TIME SPENT: 15 minutes. Vital Signs Vital Signs Date Time Temp Pulse Resp B/P (MAP) Pulse Ox O2 Delivery O2 Flow Rate FiO2 01/18/21 09:28 105/56 01/18/21 05:35 97.0 112 18 97 Room Air Current Medications Current Medications Medications (Trade) Dose Ordered Sig/Rao Route PRN Reason Start Time Stop Time Status Last Admin Dose Admin Acetaminophen (Tylenol Tab) 650 mg Q6HP PRN PO HEADACHE or DISCOMFORT 01/15/21 16:10 01/15/21 17:52 DC Acetaminophen (Tylenol Tab) 650 mg Q6HP PRN PO HEADACHE or DISCOMFORT 01/15/21 17:45 01/16/21 09:09 Acetaminophen/ Aspirin/Caffeine (Excedrin Migraine) 2 ea TIDP PRN PO HEADACHE 01/15/21 16:10 01/15/21 17:52 DC Acetaminophen/ Aspirin/Caffeine (Excedrin Migraine) 2 ea TIDP PRN PO HEADACHE 01/15/21 17:45 01/18/21 09:28 Al Hydrox/Mg Hydrox/Simethicone (Mylanta) 30 ml Q4HP PRN PO HEARTBURN/INDIGESTION 01/15/21 16:10 Divalproex Sodium (Depakote) 500 mg DAILY PO 01/16/21 09:00 01/18/21 09:28 Fluoxetine HCl (PROzac) 20 mg DAILY PO 01/16/21 09:00 01/18/21 09:28 Gabapentin (Neurontin) 600 mg TID PO 01/15/21 21:00 01/18/21 15:19 Home Med (Med Rec Complete!) ASDIRECTED XX 01/15/21 18:50 01/15/21 18:48 DC Lisinopril (Prinivil) 40 mg DAILY PO 01/16/21 09:00 01/18/21 09:28 Magnesium Hydroxide (Milk Of Magnesia) 30 ml DAILYPRN PRN PO CONSTIPATION 01/15/21 16:10 Metformin HCl (Glucophage) 1,000 mg BID@0800,1800 PO 01/16/21 08:00 01/18/21 07:53 Tizanidine HCl (Zanaflex) 4 mg TIDP PRN PO MUSCLE SPASMS 01/15/21 16:10 01/17/21 09:01 Tramadol HCl (Ultram) 50 mg Q4HP PRN PO MODERATE PAIN (PS 5-7) 01/15/21 16:10 01/15/21 17:52 DC Tramadol HCl (Ultram) 50 mg Q4HP PRN PO MODERATE PAIN (PS 5-7) 01/15/21 17:45 01/17/21 20:53 Trazodone HCl (Desyrel) 50 mg QHSP PRN PO INSOMNIA 01/15/21 16:10 01/17/21 20:52 Allergies Coded Allergies: Tetanus Vaccines and Toxoid (Verified Allergy, Unknown, 06/26/20) metoprolol (Verified Adverse Reaction, Severe, SECOND DEGREE HEART BLOCK, 11/15/20) MYKE VALENCIA MD January 18, 2021 15:40
[2021-01-19 06:53] VITALS: BP 108/66
[2021-01-19] MEDS: metFORMIN (GLUCOPHAGE) 1000 MG TABLET PO SCH ×2 (07:48→17:04)
[2021-01-19] MEDS: VENLAFAXINE **XR** 75MG CAPSULE PO SCH (08:57)
[2021-01-19] MEDS: traMADol 50 MG TAB PO PRN (08:58)
[2021-01-19] MEDS: GABAPENTIN 300 MG CAP PO SCH ×3 (08:58→21:00)
[2021-01-19] MEDS: lisinopriL 40 MG TAB PO SCH (08:59)
[2021-01-19] MEDS: DIVALPROEX 500 MG TAB PO SCH (08:59)
--- NOTE | 2021-01-19 09:53 | MHIPNPDOC ---
[facility] Progress Note Progress Note DATE OF SERVICE: 01/19/21 HISTORY: Patient is a 60 -year-old , female, who was admitted to [facility] on legal status after reporting increased pain and intrusive thoughts of SI due to severe migraines. I don't have a plan because I can't even make a rational decision, I feel like I have been suffering so bad. She becomes very tearful in the interview reporting that her migraines have become severe and states that this Trigeminal Neuralgia is getting worse. PER ED NOTE: Pt self presents to [facility] due to increased pain and intrusive though ts of SI. Pt reports currently no plan "I just want to quickly". Pt reports that she has had chronic pain for about 5 years ever since she was diagnosed with Trigeminal Neuralgia. Pt reports increased depression due to not being able to control pain, pt reports being compliant with her pain meds which include, Gabapentin and Tramadol pt reports that neither of these medications seem to control her pain. Pt reports noncompliance with pain management because, she felt as though it wasn't helping. Pt does report that she does have a new appointment this month and is more hopeful that they will be better equipped at controlling her pain. Pt reports living by herself and feels very lonely. Pt reports that she often thinks about not wanting to live by herself however, is unable to live with her 81 year old mother at this time. Pt reports that she is currently not thinking about assisted living/fci. Pt is very tearful and often times has to be redirected because, she is very fixated on pain. Pt denies HI/VH/AH. Pt reports poor appetite and sleep due to chronic pain. Pt does not appear to be psychotic at this time. VITAL SIGNS: See below. CURRENT MEDICATIONS: See below. MENTAL STATUS EXAMINATION: Patient is a 60 -year-old , female, who was admitted to [facility] on legal status after reporting increased pain and intrusive thoughts of SI due to severe migraines. General Appearance: unkempt, disheveled, appears stated age, hospital scrubs/clothing Build: overweight Demeanor: other (tearful and somatic) Eye Contact: fair Activity: slowed Behavior: cooperative, withdrawn, other (tearful) Speech: spontaneous, normal volume, other (monotone) Mood: depressed, anxious Affect: flat Thought Process: logical/linear, other Thought Content (Delusions): none reported Thought Content (Other): none reported Thought Content (Aggressive): none reported Perception (Hallucinations): none reported Perception (Other): none reported Cognition(Intelligence Est.): average Oriented: Awake, Alert, Oriented times three Insight: fair Judgment: Fair Psychosis: Denies DIAGNOSES: Bipolar Disorder (History of) Nicotine Use Disorder Depression due to other medical condition (Migraines) ASSESSMENT: Pt seen today. She reports continued depression due to severe migraines. These migraines cause her to have poor function she rates it a 10/10. She denies suicidality today, she says she wouldn't be depressed if she didn't have the headaches. States that her anxiety is worse due to these headaches. She wouldn't be suicidal many times if she didn't have "these hea daches" but again denies having suicidal thoughts. Her goal is to have less headaches and to have pain that is "copeable and not feel like she is about to pass out" Discussed Imitrex for Migraines. She is agreeable to this. Staff reports that she is doing better today than on Tuesday. Was interacting with peers over the weekend. MANAGEMENT PLAN: Continue all medications as prescribed. Start Sumatriptan 100 mg BID PRN for headaches TIME SPENT: 25 minutes Vital Signs Vital Signs Date Time Temp Pulse Resp B/P (MAP) Pulse Ox O2 Delivery O2 Flow Rate FiO2 01/19/21 08:58 16 01/19/21 06:53 97.5 110 108/66 (80) 97 Room Air Current Medications Current Medications Medications (Trade) Dose Ordered Sig/Rao Route PRN Reason Start Time Stop Time Status Last Admin Dose Admin Acetaminophen (Tylenol Tab) 650 mg Q6HP PRN PO HEADACHE or DISCOMFORT 01/15/21 16:10 01/15/21 17:52 DC Acetaminophen (Tylenol Tab) 650 mg Q6HP PRN PO HEADACHE or DISCOMFORT 01/15/21 17:45 01/16/21 09:09 Acetaminophen/ Aspirin/Caffeine (Excedrin Migraine) 2 ea TIDP PRN PO HEADACHE 01/15/21 16:10 01/15/21 17:52 DC Acetaminophen/ Aspirin/Caffeine (Excedrin Migraine) 2 ea TIDP PRN PO HEADACHE 01/15/21 17:45 01/18/21 16:14 Al Hydrox/Mg Hydrox/Simethicone (Mylanta) 30 ml Q4HP PRN PO HEARTBURN/INDIGESTION 01/15/21 16:10 Divalproex Sodium (Depakote) 500 mg DAILY PO 01/16/21 09:00 01/19/21 08:59 Fluoxetine HCl (PROzac) 20 mg DAILY PO 01/16/21 09:00 01/18/21 15:41 DC 01/18/21 09:28 Gabapentin (Neurontin) 600 mg TID PO 01/15/21 21:00 01/19/21 08:58 Home Med (Med Rec Complete!) ASDIRECTED XX 01/15/21 18:50 01/15/21 18:48 DC Lisinopril (Prinivil) 40 mg DAILY PO 01/19/21 09:00 01/19/21 08:59 Lisinopril (Prinivil) 40 mg DAILY PO 01/16/21 09:00 01/18/21 15:46 DC 01/18/21 09:28 Magnesium Hydroxide (Milk Of Magnesia) 30 ml DAILYPRN PRN PO CONSTIPATION 01/15/21 16:10 Metformin HCl (Glucophage) 1,000 mg BID@0800,1800 PO 01/16/21 08:00 01/19/21 07:48 Tizanidine HCl (Zanaflex) 4 mg TIDP PRN PO MUSCLE SPASMS 01/15/21 16:10 01/17/21 09:01 Tramadol HCl (Ultram) 50 mg Q4HP PRN PO MODERATE PAIN (PS 5-7) 01/15/21 16:10 01/15/21 17:52 DC Tramadol HCl (Ultram) 50 mg Q4HP PRN PO MODERATE PAIN (PS 5-7) 01/15/21 17:45 01/19/21 08:58 Trazodone HCl (Desyrel) 50 mg QHSP PRN PO INSOMNIA 01/15/21 16:10 01/17/21 20:52 Venlafaxine HCl (Effexor Xr) 75 mg QAM PO 01/19/21 09:00 01/19/21 08:57 Allergies Coded Allergies: Tetanus Vaccines and Toxoid (Verified Allergy, Unknown, 06/26/20) metoprolol (Verified Adverse Reaction, Severe, SECOND DEGREE HEART BLOCK, 11/15/20) DG LAM NP January 19, 2021 09:43
[2021-01-19] MEDS: SUMAtriptan SUCCINATE 25 MG TAB PO PRN (13:23)
[2021-01-19 16:15] VITALS: BP 141/86
[2021-01-20 06:47] VITALS: BP 134/74
[2021-01-20] MEDS: metFORMIN (GLUCOPHAGE) 1000 MG TABLET PO SCH ×2 (08:00→17:38)
[2021-01-20] MEDS: DIVALPROEX 500 MG TAB PO SCH (09:00)
[2021-01-20] MEDS: VENLAFAXINE **XR** 75MG CAPSULE PO SCH (09:00)
[2021-01-20] MEDS: lisinopriL 40 MG TAB PO SCH (09:00)
[2021-01-20] MEDS: GABAPENTIN 300 MG CAP PO SCH ×3 (09:00→20:59)
[2021-01-20] MEDS: SUMAtriptan SUCCINATE 25 MG TAB PO PRN (11:09)
[2021-01-20] MEDS: tiZANidine 4 MG TAB PO PRN (12:05)
--- NOTE | 2021-01-20 12:58 | MHIPNPDOC ---
[facility] [place] Progress Note Progress Note DATE OF SERVICE: 01/20/21 HISTORY: Patient is a 60 -year-old , female, who was admitted to [facility] on legal status after reporting increased pain and intrusive thoughts of SI due to severe migraines. I don't have a plan because I can't even make a rational decision, I feel like I have been suffering so bad. She becomes very tearful in the interview reporting that her migraines have become severe and states that this Trigeminal Neuralgia is getting worse. PER ED NOTE: Pt self presents to [facility] due to increased pain and intrusive thoug hts of SI. Pt reports currently no plan "I just want to quickly". Pt reports that she has had chronic pain for about 5 years ever since she was diagnosed with Trigeminal Neuralgia. Pt reports increased depression due to not being able to control pain, pt reports being compliant with her pain meds which include, Gabapentin and Tramadol pt reports that neither of these medications seem to control her pain. Pt reports noncompliance with pain management because, she felt as though it wasn't helping. Pt does report that she does have a new appointment this month and is more hopeful that they will be better equipped at controlling her pain. Pt reports living by herself and feels very lonely. Pt reports that she often thinks about not wanting to live by herself however, is unable to live with her 81 year old mother at this time. Pt reports that she is currently not thinking about assisted living/prison. Pt is very tearful and often times has to be redirected because, she is very fixated on pain. Pt denies HI/VH/AH. Pt reports poor appetite and sleep due to chronic pain. Pt does not appear to be psychotic at this time. VITAL SIGNS: See below. CURRENT MEDICATIONS: See below. MENTAL STATUS EXAMINATION: Patient is a 60 -year-old , female, who was admitted to [facility] on legal status after reporting increased pain and intrusive thoughts of SI due to severe migraines. General Appearance: unkempt, disheveled, appears stated age, hospital scrubs/clothing Build: overweight Demeanor: other (tearful and somatic) Eye Contact: fair Activity: slowed Behavior: cooperative, withdrawn, other (tearful) Speech: spontaneous, normal volume, other (monotone) Mood: depressed, anxious Affect: flat Thought Process: logical/linear, other Thought Content (Delusions): none reported Thought Content (Other): none reported Thought Content (Aggressive): none reported Perception (Hallucinations): none reported Perception (Other): none reported Cognition(Intelligence Est.): average Oriented: Awake, Alert, Oriented times three Insight: fair Judgment: Fair Psychosis: Denies DIAGNOSES: Bipolar Disorder (History of) Nicotine Use Disorder Depression due to other medical condition (Migraines) ASSESSMENT: Patient is seen today in her room. She is laying in her bed. She is unkempt, disheveled and dressed in hospital clothing. She is alert and oriented X3. She states that she is depressed due to severe migraines, rates her migraines at 10 out of 10. States that she is also anxious because of the migraines. She a states that she has " bad stomach pain". Rates her stomach pain as 7 out of 10. Denies having /NV/diarrhea and had last bowel movement was yesterday. When asked if she has asked for any medication for her migraines, she says no. Sumatriptan 100mg PO BID PRN was started yesterday.Last dosage was yesterday. Encouraged patient to get out of bed and go ask for Sumatriptan in the med room and she did. She denies suicidal ideations. Denies HI/AH/VH. Encouraged to interact with her peers when her pain has subsided. at 1400, patient observed to be sleeping in her room. MANAGEMENT PLAN: Continue all medications as prescribed. TIME SPENT: 25 minutes Vital Signs Vital Signs Date Time Temp Pulse Resp B/P (MAP) Pulse Ox O2 Delivery O2 Flow Rate FiO2 01/20/21 06:47 97.3 89 18 134/74 (94) 96 Room Air Current Medications Current Medications Medications (Trade) Dose Ordered Sig/Rao Route PRN Reason Start Time Stop Time Status Last Admin Dose Admin Acetaminophen (Tylenol Tab) 650 mg Q6HP PRN PO HEADACHE or DISCOMFORT 01/15/21 16:10 01/15/21 17:52 DC Acetaminophen (Tylenol Tab) 650 mg Q6HP PRN PO HEADACHE or DISCOMFORT 01/15/21 17:45 01/16/21 09:09 Acetaminophen/ Aspirin/Caffeine (Excedrin Migraine) 2 ea TIDP PRN PO HEADACHE 01/15/21 16:10 01/15/21 17:52 DC Acetaminophen/ Aspirin/Caffeine (Excedrin Migraine) 2 ea TIDP PRN PO HEADACHE 01/15/21 17:45 01/18/21 16:14 Al Hydrox/Mg Hydrox/Simethicone (Mylanta) 30 ml Q4HP PRN PO HEARTBURN/INDIGESTION 01/15/21 16:10 01/20/21 08:44 Divalproex Sodium (Depakote) 500 mg DAILY PO 01/16/21 09:00 01/19/21 08:59 Fluoxetine HCl (PROzac) 20 mg DAILY PO 01/16/21 09:00 01/18/21 15:41 DC 01/18/21 09:28 Gabapentin (Neurontin) 600 mg TID PO 01/15/21 21:00 01/19/21 15:55 Home Med (Med Rec Complete!) ASDIRECTED XX 01/15/21 18:50 01/15/21 18:48 DC Lisinopril (Prinivil) 40 mg DAILY PO 01/19/21 09:00 01/19/21 08:59 Lisinopril (Prinivil) 40 mg DAILY PO 01/16/21 09:00 01/18/21 15:46 DC 01/18/21 09:28 Magnesium Hydroxide (Milk Of Magnesia) 30 ml DAILYPRN PRN PO CONSTIPATION 01/15/21 16:10 Metformin HCl (Glucophage) 1,000 mg BID@0800,1800 PO 01/16/21 08:00 01/19/21 17:04 Sumatriptan Succinate (Imitrex) 100 mg BIDP PRN PO MIGRAINE 01/19/21 09:40 01/20/21 11:09 Tizanidine HCl (Zanaflex) 4 mg TIDP PRN PO MUSCLE SPASMS 01/15/21 16:10 01/20/21 12:05 Tramadol HCl (Ultram) 50 mg Q4HP PRN PO MODERATE PAIN (PS 5-7) 01/15/21 16:10 01/15/21 17:52 DC Tramadol HCl (Ultram) 50 mg Q4HP PRN PO MODERATE PAIN (PS 5-7) 01/15/21 17:45 01/19/21 08:58 Trazodone HCl (Desyrel) 50 mg QHSP PRN PO INSOMNIA 01/15/21 16:10 01/17/21 20:52 Venlafaxine HCl (Effexor Xr) 75 mg QAM PO 01/19/21 09:00 01/19/21 08:57 Allergies Coded Allergies: Tetanus Vaccines and Toxoid (Verified Allergy, Unknown, 06/26/20) metoprolol (Verified Adverse Reaction, Severe, SECOND DEGREE HEART BLOCK, 11/15/20) GD LAM NP January 20, 2021 12:58
[2021-01-20 16:16] VITALS: BP 125/59
[2021-01-21 06:19] VITALS: BP 148/92
[2021-01-21] MEDS: metFORMIN (GLUCOPHAGE) 1000 MG TABLET PO SCH ×2 (08:00→17:38)
[2021-01-21] MEDS: GABAPENTIN 300 MG CAP PO SCH ×3 (09:30→21:00)
[2021-01-21] MEDS: VENLAFAXINE **XR** 75MG CAPSULE PO SCH (09:31)
[2021-01-21] MEDS: DIVALPROEX 500 MG TAB PO SCH (09:31)
[2021-01-21] MEDS: lisinopriL 40 MG TAB PO SCH (09:31)
[2021-01-21] MEDS: traMADol 50 MG TAB PO PRN (09:35)
--- NOTE | 2021-01-21 12:58 | MHIPNPDOC ---
[facility] Progress Note Progress Note DATE OF SERVICE: 01/21/21 HISTORY: Patient is a 60 -year-old , female, who was admitted to [facility] on legal status after reporting increased pain and intrusive thoughts of SI due to severe migraines. I don't have a plan because I can't even make a rational decision, I feel like I have been suffering so bad. She becomes very tearful in the interview reporting that her migraines have become severe and states that this Trigeminal Neuralgia is getting worse. PER ED NOTE: Pt self presents to [facility] due to increased pain and intrusive though ts of SI. Pt reports currently no plan "I just want to quickly". Pt reports that she has had chronic pain for about 5 years ever since she was diagnosed with Trigeminal Neuralgia. Pt reports increased depression due to not being able to control pain, pt reports being compliant with her pain meds which include, Gabapentin and Tramadol pt reports that neither of these medications seem to control her pain. Pt reports noncompliance with pain management because, she felt as though it wasn't helping. Pt does report that she does have a new appointment this month and is more hopeful that they will be better equipped at controlling her pain. Pt reports living by herself and feels very lonely. Pt reports that she often thinks about not wanting to live by herself however, is unable to live with her 81 year old mother at this time. Pt reports that she is currently not thinking about assisted living/care home. Pt is very tearful and often times has to be redirected because, she is very fixated on pain. Pt denies HI/VH/AH. Pt reports poor appetite and sleep due to chronic pain. Pt does not appear to be psychotic at this time. VITAL SIGNS: See below. CURRENT MEDICATIONS: See below. MENTAL STATUS EXAMINATION: Patient is a 60 -year-old , female, who was admitted to [facility] on legal status after reporting increased pain and intrusive thoughts of SI due to severe migraines. General Appearance: unkempt, disheveled, appears stated age, hospital scrubs/clothing Build: overweight Demeanor: other (tearful and somatic) Eye Contact: fair Activity: slowed Behavior: uncooperative refuses to meet with provider in office, withdrawn, Speech: spontaneous, normal volume, other (monotone) Mood: depressed, anxious Affect: flat, fatigued Thought Process: logical/linear, other Thought Content (Delusions): somatic Thought Content (Other): none reported Thought Content (Aggressive): none reported Perception (Hallucinations): none reported Perception (Other): none reported Cognition(Intelligence Est.): average Oriented: Awake, Alert, Oriented times three Insight: fair to poor Judgment: fair to poor Psychosis: Denies DIAGNOSES: Bipolar Disorder (History of) Nicotine Use Disorder Depression due to other medical condition (Migraines) ASSESSMENT: Patient assessed in her room, she refuses to meet in the interview room. Patient is observed to be unkempt, disheveled, her side of the room is very unkempt and not picked up. She does eye make eye contact, she is somatic in reporting that her migraines are painful "My head is killing me," proceeds to explain that her pain is 10/10 and says that she cannot be bothered because of her headache/migraines. She reports that her "tummy is painful" She endorses anxiety and depression and denies suicidality. She denies attending groups states "My head hurts so much, I don't want to hear other people's problems." Patient reported to not be vested in treatment, although her complaints of migraines are a common theme to many of her admissions. MANAGEMENT PLAN: Continue all medications as prescribed. Increase Venlafaxine to 112.5 mg. Discharge to be announced TIME SPENT: 25 minutes Vital Signs Vital Signs Date Time Temp Pulse Resp B/P (MAP) Pulse Ox O2 Delivery O2 Flow Rate FiO2 01/21/21 10:25 16 01/21/21 06:19 97.2 85 148/92 (110) 98 Room Air Current Medications Current Medications Medications (Trade) Dose Ordered Sig/Rao Route PRN Reason Start Time Stop Time Status Last Admin Dose Admin Acetaminophen (Tylenol Tab) 650 mg Q6HP PRN PO HEADACHE or DISCOMFORT 01/15/21 16:10 01/15/21 17:52 DC Acetaminophen (Tylenol Tab) 650 mg Q6HP PRN PO HEADACHE or DISCOMFORT 01/15/21 17:45 01/16/21 09:09 Acetaminophen/ Aspirin/Caffeine (Excedrin Migraine) 2 ea TIDP PRN PO HEADACHE 01/15/21 16:10 01/15/21 17:52 DC Acetaminophen/ Aspirin/Caffeine (Excedrin Migraine) 2 ea TIDP PRN PO HEADACHE 01/15/21 17:45 01/18/21 16:14 Al Hydrox/Mg Hydrox/Simethicone (Mylanta) 30 ml Q4HP PRN PO HEARTBURN/INDIGESTION 01/15/21 16:10 01/20/21 08:44 Divalproex Sodium (Depakote) 500 mg DAILY PO 01/16/21 09:00 01/21/21 09:31 Fluoxetine HCl (PROzac) 20 mg DAILY PO 01/16/21 09:00 01/18/21 15:41 DC 01/18/21 09:28 Gabapentin (Neurontin) 600 mg TID PO 01/15/21 21:00 01/21/21 09:30 Home Med (Med Rec Complete!) ASDIRECTED XX 01/15/21 18:50 01/15/21 18:48 DC Lisinopril (Prinivil) 40 mg DAILY PO 01/19/21 09:00 01/21/21 09:31 Lisinopril (Prinivil) 40 mg DAILY PO 01/16/21 09:00 01/18/21 15:46 DC 01/18/21 09:28 Magnesium Hydroxide (Milk Of Magnesia) 30 ml DAILYPRN PRN PO CONSTIPATION 01/15/21 16:10 Metformin HCl (Glucophage) 1,000 mg BID@0800,1800 PO 01/16/21 08:00 01/20/21 17:38 Miscellaneous (Unresolved Clarification Entry) SEE LABEL COMMENTS DAILY XX 01/20/21 09:00 01/20/21 15:28 DC Sumatriptan Succinate (Imitrex) 100 mg BIDP PRN PO MIGRAINE 01/19/21 09:40 01/20/21 11:09 Tizanidine HCl (Zanaflex) 4 mg TIDP PRN PO MUSCLE SPASMS 01/15/21 16:10 01/20/21 12:05 Tramadol HCl (Ultram) 50 mg Q4HP PRN PO MODERATE PAIN (PS 5-7) 01/15/21 16:10 01/15/21 17:52 DC Tramadol HCl (Ultram) 50 mg Q4HP PRN PO MODERATE PAIN (PS 5-7) 01/15/21 17:45 01/21/21 09:35 Trazodone HCl (Desyrel) 50 mg QHSP PRN PO INSOMNIA 01/15/21 16:10 01/17/21 20:52 Venlafaxine HCl (Effexor Xr) 75 mg QAM PO 01/19/21 09:00 01/21/21 09:31 Allergies Coded Allergies: Tetanus Vaccines and Toxoid (Verified Allergy, Unknown, 06/26/20) metoprolol (Verified Adverse Reaction, Severe, SECOND DEGREE HEART BLOCK, 11/15/20) DG LAM NP January 21, 2021 11:38
[2021-01-21 16:13] VITALS: BP 135/69
[2021-01-22 06:09] VITALS: BP 158/98
[2021-01-22] MEDS: traMADol 50 MG TAB PO PRN (08:54)
[2021-01-22] MEDS: DIVALPROEX 500 MG TAB PO SCH (08:55)
[2021-01-22] MEDS: metFORMIN (GLUCOPHAGE) 1000 MG TABLET PO SCH ×2 (08:55→17:09)
[2021-01-22] MEDS: VENLAFAXINE **XR** 37.5 MG CAPSULE PO SCH (08:55)
[2021-01-22] MEDS: VENLAFAXINE **XR** 75MG CAPSULE PO SCH (08:56)
[2021-01-22] MEDS: lisinopriL 40 MG TAB PO SCH (08:56)
[2021-01-22] MEDS: GABAPENTIN 300 MG CAP PO SCH ×3 (08:56→21:55)
[2021-01-22] MEDS: ACETAMINOPHEN TAB 650MG DOSE (2X325MG) PO PRN (08:57)
--- NOTE | 2021-01-22 13:53 | MHIPNPDOC ---
[facility] Progress Note Progress Note DATE OF SERVICE: 01/22/21 HISTORY: [Patient is a 60 -year-old , female, who was admitted to [facility] on legal status after reporting increased pain and intrusive thoughts of SI due to severe migraines. I don't have a plan because I can't even make a rational decision, I feel like I have been suffering so bad. She becomes very tearful in the interview reporting that her migraines have become severe and states that this Trigeminal Neuralgia is getting worse. PER ED NOTE: Pt self presents to [facility] due to increased pain and intrusive thoug hts of SI. Pt reports currently no plan "I just want to quickly". Pt reports that she has had chronic pain for about 5 years ever since she was diagnosed with Trigeminal Neuralgia. Pt reports increased depression due to not being able to control pain, pt reports being compliant with her pain meds which include, Gabapentin and Tramadol pt reports that neither of these medications seem to control her pain. Pt reports noncompliance with pain management because, she felt as though it wasn't helping. Pt does report that she does have a new appointment this month and is more hopeful that they will be better equipped at controlling her pain. Pt reports living by herself and feels very lonely. Pt reports that she often thinks about not wanting to live by herself however, is unable to live with her 81 year old mother at this time. Pt reports that she is currently not thinking about assisted living/longterm. Pt is very tearful and often times has to be redirected because, she is very fixated on pain. Pt denies HI/VH/AH. Pt reports poor appetite and sleep due to chronic pain. Pt does not appear to be psychotic at this time. VITAL SIGNS: See below. CURRENT MEDICATIONS: See below. MENTAL STATUS EXAMINATION: Patient is a 60 -year-old , female, who was admitted to [facility] on legal status after reporting increased pain and intrusive thoughts of SI due to severe migraines. General Appearance: unkempt, disheveled, appears stated age, hospital scrubs/clothing Build: overweight Demeanor: other (tearful and somatic) Eye Contact: fair Activity: slowed Behavior: uncooperative refuses to meet with provider in office, withdrawn, Speech: spontaneous, normal volume, other (monotone) Mood: depressed, anxious Affect: flat, fatigued Thought Process: logical/linear, other Thought Content (Delusions): somatic Thought Content (Other): none reported Thought Content (Aggressive): none reported Perception (Hallucinations): none reported Perception (Other): none reported Cognition(Intelligence Est.): average Oriented: Awake, Alert, Oriented times three Insight: fair to poor Judgment: fair to poor Psychosis: Denies DIAGNOSES: Bipolar Disorder (History of) Nicotine Use Disorder Depression due to other medical condition (Migraines) ASSESSMENT: Patient is found laying in her bed. She is unkempt and disheveled and her room is untidy. She is awake,oriented X3, and withdrawn. She again refuses to leave her room and be seen in the interview room. This is the third day she refuses to be seen by the provider. She states that she is " not very well". She complains of headache. States that she is still depressed and anxious, linking her mood to her chronic headaches. She rarely gets out of bed and is not participating in her treatment or engaging with her peers. She complains of having trouble breathing. Reinforced with her that laying flat in the bed will not help with her breathing. Encouraged her to sit upright in bed or get out of bed and sit on a chair. Encouraged her to attend group activities and participate in psychoeducational sessions which teach coping skills. She nods her head in agreement when advised to try to attend at least one group activity today. MANAGEMENT PLAN: Continue all medications as prescribed. TIME SPENT: 25 minutes Vital Signs Vital Signs Date Time Temp Pulse Resp B/P (MAP) Pulse Ox O2 Delivery O2 Flow Rate FiO2 01/22/21 06:09 97.3 86 16 158/98 (118) 95 Room Air Current Medications Current Medications Medications (Trade) Dose Ordered Sig/Rao Route PRN Reason Start Time Stop Time Status Last Admin Dose Admin Acetaminophen (Tylenol Tab) 650 mg Q6HP PRN PO HEADACHE or DISCOMFORT 01/15/21 16:10 01/15/21 17:52 DC Acetaminophen (Tylenol Tab) 650 mg Q6HP PRN PO HEADACHE or DISCOMFORT 01/15/21 17:45 01/16/21 09:09 Acetaminophen/ Aspirin/Caffeine (Excedrin Migraine) 2 ea TIDP PRN PO HEADACHE 01/15/21 16:10 01/15/21 17:52 DC Acetaminophen/ Aspirin/Caffeine (Excedrin Migraine) 2 ea TIDP PRN PO HEADACHE 01/15/21 17:45 01/18/21 16:14 Al Hydrox/Mg Hydrox/Simethicone (Mylanta) 30 ml Q4HP PRN PO HEARTBURN/INDIGESTION 01/15/21 16:10 01/20/21 08:44 Divalproex Sodium (Depakote) 500 mg DAILY PO 01/16/21 09:00 01/21/21 09:31 Fluoxetine HCl (PROzac) 20 mg DAILY PO 01/16/21 09:00 01/18/21 15:41 DC 01/18/21 09:28 Gabapentin (Neurontin) 600 mg TID PO 01/15/21 21:00 01/21/21 15:53 Home Med (Med Rec Complete!) ASDIRECTED XX 01/15/21 18:50 01/15/21 18:48 DC Lisinopril (Prinivil) 40 mg DAILY PO 01/19/21 09:00 01/21/21 09:31 Lisinopril (Prinivil) 40 mg DAILY PO 01/16/21 09:00 01/18/21 15:46 DC 01/18/21 09:28 Magnesium Hydroxide (Milk Of Magnesia) 30 ml DAILYPRN PRN PO CONSTIPATION 01/15/21 16:10 Metformin HCl (Glucophage) 1,000 mg BID@0800,1800 PO 01/16/21 08:00 01/21/21 17:38 Miscellaneous (Unresolved Clarification Entry) SEE LABEL COMMENTS DAILY XX 01/20/21 09:00 01/20/21 15:28 DC Sumatriptan Succinate (Imitrex) 100 mg BIDP PRN PO MIGRAINE 01/19/21 09:40 01/20/21 11:09 Tizanidine HCl (Zanaflex) 4 mg TIDP PRN PO MUSCLE SPASMS 01/15/21 16:10 01/20/21 12:05 Tramadol HCl (Ultram) 50 mg Q4HP PRN PO MODERATE PAIN (PS 5-7) 01/15/21 16:10 01/15/21 17:52 DC Tramadol HCl (Ultram) 50 mg Q4HP PRN PO MODERATE PAIN (PS 5-7) 01/15/21 17:45 01/21/21 09:35 Trazodone HCl (Desyrel) 50 mg QHSP PRN PO INSOMNIA 01/15/21 16:10 01/17/21 20:52 Venlafaxine HCl (Effexor Xr) 37.5 mg DAILY PO 01/22/21 09:00 Venlafaxine HCl (Effexor Xr) 75 mg DAILY PO 01/22/21 09:00 Venlafaxine HCl (Effexor Xr) 75 mg QAM PO 01/19/21 09:00 01/21/21 12:31 DC 01/21/21 09:31 Allergies Coded Allergies: Tetanus Vaccines and Toxoid (Verified Allergy, Unknown, 06/26/20) metoprolol (Verified Adverse Reaction, Severe, SECOND DEGREE HEART BLOCK, 11/15/20) DG LAM NP January 22, 2021 07:17
[2021-01-22 17:15] VITALS: BP 144/68
[2021-01-23 06:17] VITALS: BP 131/85
[2021-01-23] MEDS: metFORMIN (GLUCOPHAGE) 1000 MG TABLET PO SCH ×2 (07:41→17:05)
[2021-01-23] MEDS: VENLAFAXINE **XR** 37.5 MG CAPSULE PO SCH (08:35)
[2021-01-23] MEDS: lisinopriL 40 MG TAB PO SCH (08:35)
[2021-01-23] MEDS: DIVALPROEX 500 MG TAB PO SCH (08:35)
[2021-01-23] MEDS: VENLAFAXINE **XR** 75MG CAPSULE PO SCH (08:35)
[2021-01-23] MEDS: GABAPENTIN 300 MG CAP PO SCH ×3 (08:36→20:40)
--- NOTE | 2021-01-23 11:35 | MHIPNPDOC ---
[facility] Progress Note Progress Note DATE OF SERVICE: 01/23/21 HISTORY: [Patient is a 60 -year-old , female, who was admitted to [facility] on legal status after reporting increased pain and intrusive thoughts of SI due to severe migraines. I don't have a plan because I can't even make a rational decision, I feel like I have been suffering so bad. She becomes very tearful in the interview reporting that her migraines have become severe and states that this Trigeminal Neuralgia is getting worse. PER ED NOTE: Pt self presents to [facility] due to increased pain and intrusive thoug hts of SI. Pt reports currently no plan "I just want to quickly". Pt reports that she has had chronic pain for about 5 years ever since she was diagnosed with Trigeminal Neuralgia. Pt reports increased depression due to not being able to control pain, pt reports being compliant with her pain meds which include, Gabapentin and Tramadol pt reports that neither of these medications seem to control her pain. Pt reports noncompliance with pain management because, she felt as though it wasn't helping. Pt does report that she does have a new appointment this month and is more hopeful that they will be better equipped at controlling her pain. Pt reports living by herself and feels very lonely. Pt reports that she often thinks about not wanting to live by herself however, is unable to live with her 81 year old mother at this time. Pt reports that she is currently not thinking about assisted living/care home. Pt is very tearful and often times has to be redirected because, she is very fixated on pain. Pt denies HI/VH/AH. Pt reports poor appetite and sleep due to chronic pain. Pt does not appear to be psychotic at this time. VITAL SIGNS: See below. CURRENT MEDICATIONS: See below. MENTAL STATUS EXAMINATION: Patient is a 60 -year-old , female, who was admitted to [facility] on legal status after reporting increased pain and intrusive thoughts of SI due to severe migraines. General Appearance: unkempt, disheveled, appears stated age, hospital scrubs/clothing Build: overweight Demeanor: other (tearful and somatic) Eye Contact: good Activity: averager Behavior: cooperative, meets provider in the office, pleasant Speech: spontaneous, normal volume, other (monotone) Mood: Reports decreased depression and anxiety Affect: Full Thought Process: logical/linear, Thought Content (Delusions): Denies Thought Content (Other): Denies SI/HI/AH/VH Thought Content (Aggressive): none reported Perception (Hallucinations): none reported Perception (Other): none reported Cognition(Intelligence Est.): average Oriented: Awake, Alert, Oriented times three Insight: fair Judgment: fair Psychosis: Denies DIAGNOSES: Bipolar Disorder (History of) Nicotine Use Disorder Depression due to other medical condition (Migraines) ASSESSMENT: Patient agrees to meet the interview room today. She has been declining to meet in the interview room for the past three days. She is dressed in hospital clothing and her hygiene has improved. She is alert and oriented X3. She is in good spirits, smiling on approach, sitting upright sipping her juice and making good eye contact. States that "I feel good today". Her mood and affect have significantly improved. She states that the depression and anxiety is decreasing. States that she had neck surgery years ago, and that's what causes her chronic migraines. Rates her headache at 4/10 today. States that she has been attended group activities since yesterday evening . States " I really enjoyed group". Asked if she had any suicidal ideation, she states, "no, I got a lot to live for, I got a good amount of money in the bank and have friends, my cat and my mom". Denies HI/AH/VH. States that she will be ready for discharge on Tuesday. States that she has the support of her mother and her friends. States that she is looking forward to seeing her cat. She has been observed interacting with peers in the day room and watching TV. She is compliant with her medications. MANAGEMENT PLAN: Continue all medications as prescribed. TIME SPENT: 25 minutes Vital Signs Vital Signs Date Time Temp Pulse Resp B/P (MAP) Pulse Ox O2 Delivery O2 Flow Rate FiO2 01/23/21 08:30 Room Air 01/23/21 06:17 97.4 106 16 131/85 (100) 100 Current Medications Current Medications Medications (Trade) Dose Ordered Sig/Rao Route PRN Reason Start Time Stop Time Status Last Admin Dose Admin Acetaminophen (Tylenol Tab) 650 mg Q6HP PRN PO HEADACHE or DISCOMFORT 01/15/21 16:10 01/15/21 17:52 DC Acetaminophen (Tylenol Tab) 650 mg Q6HP PRN PO HEADACHE or DISCOMFORT 01/15/21 17:45 01/22/21 08:57 Acetaminophen/ Aspirin/Caffeine (Excedrin Migraine) 2 ea TIDP PRN PO HEADACHE 01/15/21 16:10 01/15/21 17:52 DC Acetaminophen/ Aspirin/Caffeine (Excedrin Migraine) 2 ea TIDP PRN PO HEADACHE 01/15/21 17:45 01/18/21 16:14 Al Hydrox/Mg Hydrox/Simethicone (Mylanta) 30 ml Q4HP PRN PO HEARTBURN/INDIGESTION 01/15/21 16:10 01/20/21 08:44 Divalproex Sodium (Depakote) 500 mg DAILY PO 01/16/21 09:00 01/23/21 08:35 Fluoxetine HCl (PROzac) 20 mg DAILY PO 01/16/21 09:00 01/18/21 15:41 DC 01/18/21 09:28 Gabapentin (Neurontin) 600 mg TID PO 01/15/21 21:00 01/23/21 08:36 Home Med (Med Rec Complete!) ASDIRECTED XX 01/15/21 18:50 01/15/21 18:48 DC Lisinopril (Prinivil) 40 mg DAILY PO 01/19/21 09:00 01/23/21 08:35 Lisinopril (Prinivil) 40 mg DAILY PO 01/16/21 09:00 01/18/21 15:46 DC 01/18/21 09:28 Magnesium Hydroxide (Milk Of Magnesia) 30 ml DAILYPRN PRN PO CONSTIPATION 01/15/21 16:10 Metformin HCl (Glucophage) 1,000 mg BID@0800,1800 PO 01/16/21 08:00 01/23/21 07:41 Miscellaneous (Unresolved Clarification Entry) SEE LABEL COMMENTS DAILY XX 01/20/21 09:00 01/20/21 15:28 DC Sumatriptan Succinate (Imitrex) 100 mg BIDP PRN PO MIGRAINE 01/19/21 09:40 01/20/21 11:09 Tizanidine HCl (Zanaflex) 4 mg TIDP PRN PO MUSCLE SPASMS 01/15/21 16:10 01/20/21 12:05 Tramadol HCl (Ultram) 50 mg Q4HP PRN PO MODERATE PAIN (PS 5-7) 01/15/21 16:10 01/15/21 17:52 DC Tramadol HCl (Ultram) 50 mg Q4HP PRN PO MODERATE PAIN (PS 5-7) 01/15/21 17:45 01/22/21 08:54 Trazodone HCl (Desyrel) 50 mg QHSP PRN PO INSOMNIA 01/15/21 16:10 01/17/21 20:52 Venlafaxine HCl (Effexor Xr) 37.5 mg DAILY PO 01/22/21 09:00 01/23/21 08:35 Venlafaxine HCl (Effexor Xr) 75 mg DAILY PO 01/22/21 09:00 01/23/21 08:35 Venlafaxine HCl (Effexor Xr) 75 mg QAM PO 01/19/21 09:00 01/21/21 12:31 DC 01/21/21 09:31 Allergies Coded Allergies: Tetanus Vaccines and Toxoid (Verified Allergy, Unknown, 06/26/20) metoprolol (Verified Adverse Reaction, Severe, SECOND DEGREE HEART BLOCK, 11/15/20) DG LAM NP January 23, 2021 11:35
[2021-01-23 16:23] VITALS: BP 145/80
[2021-01-24 06:20] VITALS: BP 156/76
[2021-01-24] MEDS: metFORMIN (GLUCOPHAGE) 1000 MG TABLET PO SCH ×2 (07:18→17:12)
[2021-01-24] MEDS: DIVALPROEX 500 MG TAB PO SCH (08:49)
[2021-01-24] MEDS: lisinopriL 40 MG TAB PO SCH (08:49)
[2021-01-24] MEDS: VENLAFAXINE **XR** 75MG CAPSULE PO SCH (08:50)
[2021-01-24] MEDS: VENLAFAXINE **XR** 37.5 MG CAPSULE PO SCH (08:50)
[2021-01-24] MEDS: ACETAMINOPHEN TAB 650MG DOSE (2X325MG) PO PRN (08:50)
[2021-01-24] MEDS: GABAPENTIN 300 MG CAP PO SCH ×3 (08:50→20:47)
[2021-01-24] MEDS: EXCEDRIN MIGRAINE TABLET PO PRN (16:30)
[2021-01-24 16:35] VITALS: BP 130/69
[2021-01-25 06:50] VITALS: BP 143/84
[2021-01-25] MEDS: metFORMIN (GLUCOPHAGE) 1000 MG TABLET PO SCH ×2 (07:48→18:01)
[2021-01-25] MEDS: GABAPENTIN 300 MG CAP PO SCH ×3 (08:13→21:00)
[2021-01-25] MEDS: SUMAtriptan SUCCINATE 25 MG TAB PO PRN (08:13)
[2021-01-25] MEDS: VENLAFAXINE **XR** 37.5 MG CAPSULE PO SCH (08:13)
[2021-01-25] MEDS: DIVALPROEX 500 MG TAB PO SCH (08:13)
[2021-01-25] MEDS: lisinopriL 40 MG TAB PO SCH (08:14)
[2021-01-25] MEDS: VENLAFAXINE **XR** 75MG CAPSULE PO SCH (08:14)
[2021-01-25] MEDS: ACETAMINOPHEN TAB 650MG DOSE (2X325MG) PO PRN (16:05)
[2021-01-25 16:17] VITALS: BP 136/72
[2021-01-26 06:33] VITALS: BP 125/75
[2021-01-26] MEDS: GABAPENTIN 300 MG CAP PO SCH (09:01)
[2021-01-26] MEDS: DIVALPROEX 500 MG TAB PO SCH (09:02)
[2021-01-26] MEDS: lisinopriL 40 MG TAB PO SCH (09:04)
[2021-01-26] MEDS: VENLAFAXINE **XR** 37.5 MG CAPSULE PO SCH (09:04)
[2021-01-26] MEDS: VENLAFAXINE **XR** 75MG CAPSULE PO SCH (09:04)
[2021-01-26] MEDS: metFORMIN (GLUCOPHAGE) 1000 MG TABLET PO SCH (09:05)
[2021-01-26] MEDS ORDERED: VENL37.598 PO (09:23)
[2021-01-26] MEDS ORDERED: VENL75CA47 PO (09:23)
[2021-01-26] MEDS: SUMAtriptan SUCCINATE 25 MG TAB PO PRN (10:21)
--- NOTE | 2021-01-26 11:01 | MHDSPDOC ---
[facility] Discharge Summary Discharge Summary DATE OF ADMISSION: January 15, 2021 at 17:32 DATE OF DISCHARGE: January 26, 2021 at 1101 DISCHARGE DIAGNOSES: Bipolar Disorder (History of) Nicotine Use Disorder Depression due to other medical condition (Migraines) REASON FOR ADMISSION: Patient is a 60 -year-old , female, who was admitted to [facility] on legal status after reporting increased pain and intrusive thoughts of SI due to severe migraines. I don't have a plan because I can't even make a rational decision, I feel like I have been suffering so bad. She becomes very tearful in the interview reporting that her migraines have become severe and states that this Trigeminal Neuralgia is getting worse. PER ED NOTE: Pt self presents to [facility] due to increased pain and intrusive thoughts of SI. Pt reports currently no plan "I just want to quickly". Pt reports that she has had chronic pain for about 5 years ever since she was diagnosed with Trigeminal Neuralgia. Pt reports increased depression due to not being able to control pain, pt reports being compliant with her pain meds which include, Gabapentin and Tramadol pt reports that neither of these medications seem to control her pain. Pt reports noncompliance with pain management because, she felt as though it wasn't helping. Pt does report that she does [place] a new appointment this month and is more hopeful that they will be better equipped at controlling her pain. Pt reports living by herself and feels very lonely. Pt reports that she often thinks about not wanting to live by herself however, is unable to live with her 81 year old mother at this time. Pt reports that she is currently not thinking about assisted living/penitentiary. Pt is very tearful and often times has to be redirected because, she is very fixated on pain. Pt denies HI/VH/AH. Pt reports poor appetite and sleep due to chronic pain. Pt does not appear to be psychotic at this time. VITAL SIGNS: See below. CONSULTANTS INVOLVED: See Medical H + P by Hospitalist TREATMENT AND PROGRESS ON THE UNIT: Patient was admitted to the [facility] on a legal status he was afforded the following treatment modalities: 1) Individual Therapy 2) Group Therapy 3) Medication Management 4) Milieu Therapy 5) Safe Environment HOSPITAL COURSE: Patient was admitted to [facility] on legal status after reporting increased pain and intrusive thoughts of SI due to severe migraines. For the first three days after her admission, patient reported continue to report Depression and anxiety and linked them to her migraines. She mostly stayed in her room in bed and was not participating in her treatment or attending to her ADL's. She was refusing to meet the treatment team for assessment in the interview room. She needed a lot of encouragement to even go to the medication room to ask for PRN migraine medication. Late last week, patient's mood started improving, she was reporting decreased depression and anxiety. She was reporting a decrease in her migraines. She started participating in both group and individual psychotherapy programing and her hygiene had improved. She is asking to be discharged. Says she had a good weekend and is feeling " very good". Says her depression has lessened and she is no longer having suicidal thoughts. She is compliant with her treatment modalities. Says she is looking forward to going home to her cat. She is in good spirits and talks excitedly about projects she wants to do around her house. Talks excitedly about plans to give away some of her old clothes to lorenza. She meets the criteria for discharged and will be discharged today. DISCHARGE ASSESSMENT: In today's interview, patient is alert and oriented, Patient is dressed in regular clothing and her hygiene has improved. Smiles on approach and is pleasant and engaged in the interview. Denies depression and anxiety. Denies suicidal and homicidal ideation, planning or intent. Denies and is not observed with carlos, psychotic symptoms of delusions, bizarre thinking, obsessions, paranoia, ruminations illogical thoughts, flight of ideas or having poor insight and judgement. Patient has normal mentation, declines further hospitalization on a voluntary status and meets criteria for discharge today. Patient encouraged to return to hospital if symptoms worsen or change and encouraged to call unit if he/she/they needs to speak to provider for questions regarding medications or care. MENTAL STATUS EXAMINATION ON DISCHARGE: Patient is a 60 -year-old , female, who was admitted to [facility] on legal status after reporting increased pain and intrusive thoughts of SI due to severe migraines. Speech: Is fluid, conversant, normal rate, tone and volume Language skills are intact Thought processes including: linear and goal oriented Thought content: denies depression and anxiety. Denies suicidal/homicidal ideation, planning or intent. Abstract reasoning, and computation: fair Description of associations: denies, none observed Description of abnormal or psychotic thoughts: denies, none observed. Judgment: fair Insight: fair Orientation: alert and oriented to person, place, time and situation Recent and remote memory: intact Attention span and concentration: good Language: expansive Fund of knowledge: average Mood: Euthymic Mood Affect: reactive MEDICATIONS ON DISCHARGE: See Medication Reconciliation PLAN/FOLLOWUP ARRANGEMENTS: Nigel Setven The amount of time spent in the coordination of care for this patient was approximately 25 minutes. ETOH/Disorder Med Rx ETOH/DRUG DISORDER RX: N/A Vital Signs/I&Os Vital Signs Date Time Temp Pulse Resp B/P (MAP) Pulse Ox O2 Delivery O2 Flow Rate FiO2 01/26/21 06:33 97.9 83 18 125/75 (92) 96 Room Air Medications Scheduled Divalproex Sodium (Divalproex Sodium) 500 Mg Tablet.dr, 500 MG PO DAILY for ., (Reported) Gabapentin (Gabapentin) 600 Mg Tablet, 600 MG PO TID for PAIN, (Reported) Lisinopril (Lisinopril) 40 Mg Tablet, 40 MG PO DAILY for BP, (Reported) Metformin HCl (Metformin HCl) 1,000 Mg Tablet, 1,000 MG PO BID for DIABETES, (Reported) Venlafaxine HCl (Venlafaxine HCl ER) 37.5 Mg Cap.er.24h, 37.5 MG PO DAILY for mood, #7 Venlafaxine HCl (Venlafaxine HCl ER) 75 Mg Cap.er.24h, 75 MG PO DAILY for mood, #7 Scheduled PRN Aspirin/Acetaminophen/Caffeine (Excedrin Migraine Caplet) 1 Each Tablet, 2 TAB- CAP PO Q6H PRN for HEADACHE, (Reported) Cyclobenzaprine HCl (Cyclobenzaprine HCl) 10 Mg Tablet, 10 MG PO TID PRN for MUSCLE SPASMS, (Reported) Sumatriptan Succinate (Sumatriptan Succinate) 100 Mg Tablet, 100 MG PO ASDIRECTED PRN for MIGRAINE, (Reported) may repeat in 2 hours; do not exceed 200 mg in 24 hours Tizanidine HCl (Tizanidine HCl) 4 Mg Tablet, 4 MG PO QHS PRN for MUSCLE SPASMS, (Reported) Tramadol HCl (Tramadol HCl) 50 Mg Tablet, 50 MG PO TID PRN for PAIN, (Reported) Trazodone HCl (Trazodone HCl) 50 Mg Tablet, 50 MG PO QHS PRN for SLEEP, (Reported) Allergies Coded Allergies: Tetanus Vaccines and Toxoid (Verified Allergy, Unknown, 06/26/20) metoprolol (Verified Adverse Reaction, Severe, SECOND DEGREE HEART BLOCK, 11/15/20) DG LAM NP January 26, 2021 11:01
== END 2021-01-26 12:05 | disposition home or self-care (01) | DRG 884 ==
LOC: M ED 09:15 → M PSY 17:32
PROVIDERS: ADMIT Psychiatry & Neurology Psychiatry; ATTEND Psychiatry & Neurology Psychiatry
DX: F06.31 Mood disorder due to known physiological condition with depressive features (principal); R45.851 Suicidal ideations; F31.9 Bipolar disorder, unspecified; F17.210 Nicotine dependence, cigarettes, uncomplicated; M26.609 Unspecified temporomandibular joint disorder, unspecified side; G43.909 Migraine, unspecified, not intractable, without status migrainosus; I10 Essential (primary) hypertension; E11.69 Type 2 diabetes mellitus with other specified complication; I25.10 Atherosclerotic heart disease of native coronary artery without angina pectoris; M54.5 Low back pain; M54.2 Cervicalgia; G89.29 Other chronic pain; Z98.1 Arthrodesis status; M79.2 Neuralgia and neuritis, unspecified; Z91.19 Patient's noncompliance with other medical treatment and regimen; Z95.5 Presence of coronary angioplasty implant and graft; Z20.822 Contact with and (suspected) exposure to COVID-19; Z79.84 Long term (current) use of oral hypoglycemic drugs; Z79.899 Other long term (current) drug therapy; Z88.8 Allergy status to other drugs, medicaments and biological substances; Z88.7 Allergy status to serum and vaccine

== ENCOUNTER 2021-03-17 12:33 | Emergency (ER) | payer MEDICARE, MEDICAID ==
[~2021-03-17] VITALS: Ht 165.1 cm; Wt 87.5 kg
[~2021-03-17 12:33] MED LIST changes: +EXCETAB33 PO; +FLUO20CA20 PO; -OLAN15TA PO; +OLAN15TA13 PO; +OLAN1TAB16 PO; -OLAN5TAB PO; -OLAN7.5T PO; +OLAN7.5T8 PO; +TRAZ1TAB10 PO; +VENL37.598 PO; +VENL75CA47 PO
[2021-03-17 13:41] VITALS: BP 179/101
[2021-03-17] MEDS ORDERED: ONDANSETRON 4MG/2ML VIAL IV ONE (13:50)
[2021-03-17] MEDS ORDERED: MORPHINE 2 MG/ML 1ML VIAL (J2270) IV PRN (13:50)
[2021-03-17 15:34] LABS: HEMATOCRIT 47.7 % (36.0-47.0); HEMOGLOBIN 15.5 g/dl (12.0-15.5); MEAN CORPUSCULAR HEMOGLOBIN 29.4 pg (27.0-33.0); MEAN CORPUSCULAR HGB CONC 32.5 g/dl (32.0-36.5); MEAN CORPUSCULAR VOLUME 90.5 fl (80.0-96.0); PLATELET COUNT, AUTOMATED 219 10^3/uL (150-450); RED BLOOD COUNT 5.27 10^6/uL (4.00-5.40); WHITE BLOOD COUNT 8.6 10^3/uL (4.0-10.0)
[2021-03-17 16:11] LABS: RSV AMPLIFICATION NEGATIVE (NEGATIVE)
[2021-03-17 16:12] LABS: ACETAMINOPHEN LEVEL < 2.0 UG/ML (10.0-30.0); ALBUMIN 3.8 GM/DL (3.2-5.2); ALT/SGPT 14 U/L (12-78); BILIRUBIN,DIRECT < 0.1 MG/DL (0.0-0.2); BILIRUBIN,TOTAL 0.2 MG/DL (0.2-1.0); BLOOD UREA NITROGEN 17 MG/DL (7-18); CARBON DIOXIDE LEVEL 22 MEQ/L (21-32); CHLORIDE LEVEL 111 MEQ/L (98-107); CREATININE FOR GFR 1.04 MG/DL (0.55-1.30); ETHYL ALCOHOL (ETHANOL) < 0.003 % (0.000-0.010); GLOMERULAR FILTRATION RATE 57.5 (>45); GLUCOSE, FASTING 81 MG/DL (70-100); POTASSIUM SERUM 4.6 MEQ/L (3.5-5.1); SALICYLATE LEVEL 3.2 MG/DL (5.0-30.0); SODIUM LEVEL 142 MEQ/L (136-145); TOTAL PROTEIN 7.9 GM/DL (6.4-8.2)
== END 2021-03-17 18:22 | disposition home or self-care (01) ==
LOC: M ED 12:33
DX: M54.2 Cervicalgia (principal); M54.9 Dorsalgia, unspecified; F32.9 Major depressive disorder, single episode, unspecified; I25.10 Atherosclerotic heart disease of native coronary artery without angina pectoris; I10 Essential (primary) hypertension; E11.42 Type 2 diabetes mellitus with diabetic polyneuropathy; Z95.5 Presence of coronary angioplasty implant and graft; M43.22 Fusion of spine, cervical region; F17.200 Nicotine dependence, unspecified, uncomplicated; Z79.84 Long term (current) use of oral hypoglycemic drugs; Z79.82 Long term (current) use of aspirin; Z79.899 Other long term (current) drug therapy; Z88.7 Allergy status to serum and vaccine; Z88.8 Allergy status to other drugs, medicaments and biological substances
CPT/HCPCS: 80048; 80076; 80143; 82077; 84443; 85027; 87631; 96374; 96375; 99283; J2270; J2405

== ENCOUNTER 2021-04-02 08:52 | Emergency (ER) | payer MEDICARE, MEDICAID ==
--- NOTE | 2021-04-02 11:40 | REP ---
INDICATION: chronic neck pain, hx surgery. r/o hardware/structureal def. COMPARISON: Comparison radiographs are from January 16, 2009.. TECHNIQUE: AP, lateral, and swimmer's lateral views are presented. FINDINGS: Three views of the cervical spine demonstrate the ventral discectomy and fusion plating across the C 5 through C7 level unchanged from the 2009 study. Alignment is normal. Vertebral body heights are preserved. There is minimal disc space narrowing at C4-5 similar to the prior study as well. There is mild osteoarthritic facet hypertrophy in the midcervical spine. No bony destructive lesion is seen. IMPRESSION: Status post ventral discectomy and fusion C5 through C7. Mild spondylosis changes. No significant change from January 16, 2009. <Electronically signed by Addy Lofton > 04/02/21 2053
[2021-04-02] MEDS ORDERED: SIME180C25 PO (12:11)
[2021-04-02] MEDS ORDERED: TRAM50TA2 PO (12:11)
[2021-04-02 12:15] VITALS: BP 149/78
== END 2021-04-02 12:27 | disposition home or self-care (01) ==
LOC: M ED 08:52
DX: M50.30 Other cervical disc degeneration, unspecified cervical region (principal); K30 Functional dyspepsia; F17.200 Nicotine dependence, unspecified, uncomplicated; Z88.7 Allergy status to serum and vaccine; Z98.1 Arthrodesis status

== ENCOUNTER 2021-04-08 10:40 | Inpatient (IN) | payer MEDICARE, MEDICAID ==
[~2021-04-08] VITALS: Ht 165.1 cm; Wt 85.3 kg
[~2021-04-08 10:40] MED LIST changes: +SIME180C25 PO
[2021-04-08 12:12] LABS: HEMOGLOBIN 14.8 g/dl (12.0-15.5); MEAN CORPUSCULAR HEMOGLOBIN 29.9 pg (27.0-33.0); MEAN CORPUSCULAR HGB CONC 33.6 g/dl (32.0-36.5); MEAN CORPUSCULAR VOLUME 88.9 fl (80.0-96.0); PLATELET COUNT, AUTOMATED 267 10^3/uL (150-450); RED BLOOD COUNT 4.95 10^6/uL (4.00-5.40); WHITE BLOOD COUNT 9.2 10^3/uL (4.0-10.0)
[2021-04-08 12:34] LABS: AMPHETAMINES LEVEL URINE NEGATIVE (NEGATIVE); BARBITURATES URINE NEGATIVE (NEGATIVE); BENZODIAZEPINES URINE NEGATIVE (NEGATIVE); CANNABINOIDS URINE NEGATIVE (NEGATIVE); COCAINE METABOLITE URINE NEGATIVE (NEGATIVE); METHADONE URINE NEGATIVE (NEGATIVE); OPIATES URINE NEGATIVE (NEGATIVE); PHENCYCLIDINE URINE NEGATIVE (NEGATIVE)
[2021-04-08 12:45] LABS: ACETAMINOPHEN LEVEL < 2.0 UG/ML (10.0-30.0); ALBUMIN 3.6 GM/DL (3.2-5.2); ALT/SGPT 22 U/L (12-78); BILIRUBIN,DIRECT < 0.1 MG/DL (0.0-0.2); BILIRUBIN,TOTAL 0.2 MG/DL (0.2-1.0); BLOOD UREA NITROGEN 17 MG/DL (7-18); CARBON DIOXIDE LEVEL 25 MEQ/L (21-32); CHLORIDE LEVEL 109 MEQ/L (98-107); ETHYL ALCOHOL (ETHANOL) 0.003 % (0.000-0.010); GLOMERULAR FILTRATION RATE > 60.0 (>45); GLUCOSE, FASTING 139 MG/DL (70-100); POTASSIUM SERUM 4.2 MEQ/L (3.5-5.1); SALICYLATE LEVEL 3.1 MG/DL (5.0-30.0); SODIUM LEVEL 140 MEQ/L (136-145); TOTAL PROTEIN 7.4 GM/DL (6.4-8.2)
[2021-04-08] MEDS ORDERED: ACETAMINOPHEN TAB 650MG DOSE (2X325MG) PO ONE (14:25)
[2021-04-08] MEDS ORDERED: BACL1TAB9 PO (15:04)
[2021-04-08] MEDS ORDERED: SIME180C25 PO (15:04)
[2021-04-08] MEDS ORDERED: TOPI100T9 PO (15:04)
[2021-04-08] MEDS ORDERED: MIRT1TAB PO (15:04)
[2021-04-08] MEDS ORDERED: HOME MED LIST COMPLETE! XX SCH (15:10)
[2021-04-08] MEDS ORDERED: MAALOX 30 ML SUSP *UDC PO PRN (16:05)
[2021-04-08 17:11] LABS: RSV AMPLIFICATION NEGATIVE (NEGATIVE)
[2021-04-08 18:00] VITALS: BP 128/72
[2021-04-08 18:42] VITALS: BP 128/72
[2021-04-08] MEDS: TOPIRAMATE (TopAMAX) 100 MG TAB PO SCH (21:00)
[2021-04-08] MEDS ORDERED: TOPIRAMATE (TopAMAX) 100 MG TAB PO SCH (21:00)
[2021-04-08] MEDS: DIVALPROEX 500 MG TAB PO SCH (21:00)
[2021-04-08] MEDS: MIRTAZAPINE 7.5MG PER 1/2 TABLET PO SCH (21:00)
[2021-04-09] MEDS: EXCEDRIN MIGRAINE TABLET PO PRN ×2 (01:01→13:53)
[2021-04-09 06:34] VITALS: BP 118/74
[2021-04-09] MEDS: NICOTINE 14 MG/24 HR TRANSDERMAL TD SCH (08:18)
[2021-04-09] MEDS: DIVALPROEX 500 MG TAB PO SCH ×2 (08:19→20:41)
[2021-04-09] MEDS: metFORMIN (GLUCOPHAGE) 1000 MG TABLET PO SCH (08:19)
[2021-04-09] MEDS: TOPIRAMATE (TopAMAX) 100 MG TAB PO SCH ×2 (08:20→20:41)
[2021-04-09] MEDS: traMADol 50 MG TAB PO PRN ×2 (08:20→17:56)
--- NOTE | 2021-04-09 10:53 | MHHPEPDOC ---
General Date Of Admission: Apr 08, 2021 Legal Status: 9.39 Chief Complaint I am so depressed I was unable to get up in the morning. ". History of Present Illness HISTORY OF THE PRESENT ILLNESS: Patient is a 61 -year-old , female, who [has long history of depression came to emergency room reporting increasing depression and vague suicidal ideas. Patient had a previously several inpatient admissions with the last discharge in January 2021 and currently in outpatient follow-up at [facility] outpatient clinic. Patient stated that she recently tried to cut down on her Depakote because she was not feeling right but is not getting any relief. She has been working with her psychiatrist had several medication adjustment but still not feeling any better. She stated that she is lacking any energy or will to live and yesterday she was in much pain all over her body and was feeling sort down and out that she could not get up in the morning and was wishing that she was not. She is denying any clear suicidal plan or intent but was feeling extremely depressed and feeling hopeless helpless and came to the emergency room seeking help. She denies any substance abuse issues and she denies any psychotic symptoms and denies any clear intent to but does not feel safe and seeking help.]. Psychiatric Review of Systems Depression (2 or more weeks): depressed mood, insomnia/hypersomnia, feelings of worthlesness, decreased energy, difficulty concentrating, suicidal thoughts Raiza (4 or more days of): denies Psychosis: denies PTSD: denies Anxiety: denies Past Psychiatric History Previous Psychiatric Diagnosis: . Major depression and bipolar disorder Previous Psychiatric Admissions: . Multiple admissions last discharge January 2021 Suicide Attempts: . No history of actual attempt Psychiatric Follow-up: . Activating outpatient clinic Psychiatric medications: . Been on multiple psychotropic medications Past Medical History Medical Problems Has diabetes and hypertension Head Injury: No Seizures: No Hospitalizations: No Surgeries: No Family Medical/Psychiatric HX Medical Problems Noncontributory Psychiatric Disorders: No (Patient denies any family psychiatric history) Addiction: No Suicide Attemps/Completions: No Addiction History denies Social History Childhood: . Uneventful has a mother who is 82 years old Abuse/Trauma:[Denies any history of abuse or trauma]. Current Living Situation: [Lives alone lives alone]. Education: . High school education Employment: . Past employment history Social Support: . No close relatives or family in this area Legal: . Denies any legal history Marital: . Was but no children Mental Status Examination General Appearance: appears stated age Build: average Demeanor: average, withdrawn, preoccupied Eye Contact: fair Activity: slowed, anxious Behavior: cooperative Speech: pressured, slow, low in volume Mood: depressed, anxious Affect: constricted, appropriate, congruent Thought Process: logical/linear, depressed, slow Thought Content (Delusions): other (Vague passive suicidal thought) Thought Content (Other): none reported Thought Content (Aggressive): none reported Perception (Hallucinations): none reported Perception (Other): none reported Cognition (Impairment of): none reported Cognition(Intelligence Est.): average Oriented: Alert, Oriented times three Insight: fair Judgment: Poor Psychosis: Denies Diagnoses Major depression recurrent A-FIB/CHADSVASC A-FIB History Current/History of A-Fib/PAF?: No Current PO Anticoag Therapy: No Age/Risk Factor Scoring CHADSVASC: CHADSVASC Response (Comments) Value Age Risk Factor Age < 65 years old 0 Gender Risk Factor Female 1 Hx of CHF No 0 Hx of HTN Yes 1 Hx of Stroke/TIA/or VTE No 0 Hx of Diabetes No 0 Total 2 Treatment Treatment ordered: NONE Assessment Significantly depressed with the marked the somatic complaint of chronic pain needs stabilization with supportive therapy and medications Initial Treatment Plan 1. Patient was admitted on a 9.39 status. 2. Complete history was obtained. 3. With patients permission, family will be contacted and database will be expanded. 4. Patients medication regimen will be reviewed and changed accordingly. 5. Patient will be provided with protected environment. 6. Patient will be treated with individual, group, and milieu therapies. 7. Patient will receive supportive psych-education. 8. Discharge planning will commence immediately. 9. Outpatient follow-up treatment will be strongly recommended. 10. The initial treatment plan will focus initially on: * Depression. * Risk for suicide. ESTIMATED LENGTH OF STAY: 3-5 DAYS. TIME SPENT COUNSELING AND COORDINATING INITIAL CARE: 40 minutes. Tobacco Cessation Screen If Patient is a Smoker Patient is a smoker Tobacco Cessation Tx Ordered?: Yes N/A-No Antipsychotics Vital Signs Vital Signs Date Time Temp Pulse Resp B/P (MAP) Pulse Ox O2 Delivery O2 Flow Rate FiO2 04/09/21 08:50 17 04/09/21 08:19 131/78 04/09/21 06:34 96.9 79 97 Room Air Laboratory Data 24H Labs Laboratory Tests 2 04/08/21 11:13: Nucleated Red Blood Cells % (auto) 0.0, Anion Gap 6L, Glomerular Filtration Rate > 60.0, Calcium Level 10.0, Total Bilirubin 0.2, Direct Bilirubin < 0.1, Aspartate Amino Transf (AST/SGOT) 11, Alanine Aminotransferase (ALT/SGPT) 22, Alkaline Phosphatase 74, Total Protein 7.4, Albumin 3.6, Albumin/Globulin Ratio 0.9L, Thyroid Stimulating Hormone (TSH) 1.160, Salicylates Level 3.1L, Acetaminophen Level < 2.0L, Ethyl Alcohol Level 0.003 04/08/21 11:41: Urine Opiates Screen NEGATIVE, Urine Methadone Screen NEGATIVE, Urine Barbiturates Screen NEGATIVE, Urine Phencyclidine Screen NEGATIVE, Urine Amphetamines Screen NEGATIVE, Urine Benzodiazepines Screen NEGATIVE, Urine Cocaine Metabolite Screen NEGATIVE, Urine Cannabinoids Screen NEGATIVE 04/08/21 15:39: Coronavirus (COVID-19)(PCR) NEGATIVE, Influenza Type A (RT-PCR) NEGATIVE, Influenza Type B (RT-PCR) NEGATIVE, Respiratory Syncytial Virus (PCR) NEGATIVE CBC/BMP Laboratory Tests 04/08/21 11:13 Medications Scheduled Divalproex Sodium (Divalproex Sodium) 500 Mg Tablet.dr, 500 MG PO BID, (Reported) Lisinopril (Lisinopril) 40 Mg Tablet, 20 MG PO DAILY, (Reported) Metformin HCl (Metformin HCl) 1,000 Mg Tablet, 1,000 MG PO DAILY, (Reported) Mirtazapine (Mirtazapine) 7.5 Mg Tablet, 7.5 MG PO QHS, (Reported) Simethicone (Simethicone) 180 Mg Capsule, 180 MG PO BID, (Reported) Topiramate (Topiramate) 100 Mg Tablet, 100 MG PO BID, (Reported) Scheduled PRN Aspirin/Acetaminophen/Caffeine (Excedrin Migraine Caplet) 1 Each Tablet, 2 TAB- CAP PO Q6H PRN for HEADACHE, (Reported) Baclofen (Baclofen) 20 Mg Tablet, 20 MG PO TID PRN for MUSCLE SPASMS, (Reported) Tramadol HCl (Tramadol HCl) 50 Mg Tablet, 50 MG PO TID PRN for PAIN, (Reported) Allergies Coded Allergies: Tetanus Vaccines and Toxoid (Verified Allergy, Unknown, 06/26/20) metoprolol (Verified Adverse Reaction, Severe, SECOND DEGREE HEART BLOCK, 11/15/20) MICHELLE FRIEDMAN M.D. Apr 09, 2021 10:53
[2021-04-09] MEDS: BACLOFEN 10 MG TAB PO PRN (13:53)
[2021-04-09 17:53] VITALS: BP 114/58
[2021-04-09] MEDS: MIRTAZAPINE 7.5MG PER 1/2 TABLET PO SCH (20:41)
[2021-04-09] MEDS: traZODone 50 MG TAB PO PRN (20:41)
[2021-04-10 05:54] VITALS: BP 137/75
[2021-04-10] MEDS: TOPIRAMATE (TopAMAX) 100 MG TAB PO SCH ×2 (08:59→20:39)
[2021-04-10] MEDS: NICOTINE 14 MG/24 HR TRANSDERMAL TD SCH (08:59)
[2021-04-10] MEDS: metFORMIN (GLUCOPHAGE) 1000 MG TABLET PO SCH ×2 (08:59→09:00)
[2021-04-10] MEDS: IBUPROFEN 400MG TAB PO SCH ×2 (09:00→20:39)
[2021-04-10] MEDS: DIVALPROEX 500 MG TAB PO SCH ×2 (09:00→20:39)
--- NOTE | 2021-04-10 09:36 | MHIPNPDOC ---
[facility] Progress Note Progress Note DATE OF SERVICE: 04/10/21 Patient reports that she is not feeling any better and still in much pain in her head and her neck and feeling very depressed. She is quite somatically preocc upied and is very withdrawn but in no acute distress and maintaining good control. She apparently was started on Remeron 7.5 mg about 2 months ago and reports no side effect but does not feel much better yet. I will increase it to 15 mg at bedtime and continue with the supportive therapy. HISTORY:. VITAL SIGNS: See below. NEW TEST RESULTS:. CURRENT MEDICATIONS: See below. MENTAL STATUS EXAMINATION: Patient is a 61-year old female, who is in no acute distress. Speech: Is relevant but preoccupied with the pain. Language skills are fair. Thought processes including: Not very spontaneous. Thought content: Complaining of pain discomfort and depression but no suicidal plan or intent. Abstract reasoning, and computation: Poor. Description of associations: Relevant. Description of abnormal or psychotic thoughts: Denies any hallucination or paranoia. Judgment: Poor. Insight: Fair. Orientation: Oriented. Recent and remote memory: No significant impairment. Attention span and concentration:. Language:. Fund of knowledge:. Mood: Remains anxious and depressed. Affect: Blunted preoccupied but appropriate. DIAGNOSES: 1.. Major depression recurrent 2.. 3.. ASSESSMENT: No significant change very somatic and complaining of pain but no acute distress MANAGEMENT PLAN: Increase Remeron and continue with the supportive therapy. TIME SPENT: 20 minutes. Vital Signs Vital Signs Date Time Temp Pulse Resp B/P (MAP) Pulse Ox O2 Delivery O2 Flow Rate FiO2 04/10/21 09:06 129/79 04/10/21 05:54 96.5 71 18 100 Room Air Current Medications Current Medications Medications (Trade) Dose Ordered Sig/Rao Route PRN Reason Start Time Stop Time Status Last Admin Dose Admin Acetaminophen (Tylenol Tab) 650 mg Q6HP PRN PO MILD HEADACHE or DISCOMFORT 04/08/21 16:05 Acetaminophen/ Aspirin/Caffeine (Excedrin Migraine) 1 ea Q6HP PRN PO MODERATE HEADACHE 04/08/21 16:05 04/09/21 13:53 Al Hydrox/Mg Hydrox/Simethicone (Mylanta) 30 ml Q4HP PRN PO HEARTBURN/INDIGESTION 04/08/21 16:05 04/10/21 02:20 Baclofen (Lioresal) 20 mg TID PRN PO MUSCLE SPASMS 04/08/21 16:05 04/09/21 13:53 Divalproex Sodium (Depakote) 500 mg BID PO 04/08/21 21:00 04/10/21 09:00 Home Med (Med Rec Complete!) ASDIRECTED XX 04/08/21 15:10 04/08/21 15:12 DC Lisinopril (Prinivil) 20 mg DAILY PO 04/09/21 09:00 04/10/21 09:06 Magnesium Hydroxide (Milk Of Magnesia) 30 ml DAILYPRN PRN PO CONSTIPATION 04/08/21 16:05 Metformin HCl (Glucophage) 1,000 mg DAILY PO 04/09/21 09:00 04/09/21 08:19 Mirtazapine (Remeron) 7.5 mg QHS PO 04/08/21 21:00 04/10/21 08:27 DC 04/09/21 20:41 Mirtazapine (Remeron) 15 mg QHS PO 04/10/21 21:00 Nicotine (Nicoderm Cq 14mg) 1 patch DAILY TD 04/09/21 09:00 04/10/21 08:59 Topiramate (TopAMAX) 100 mg BID PO 04/08/21 21:00 04/08/21 21:24 DC Topiramate (TopAMAX) 100 mg BID PO 04/08/21 21:00 04/10/21 08:59 Tramadol HCl (Ultram) 50 mg TID PRN PO P 04/08/21 16:05 04/09/21 17:56 Trazodone HCl (Desyrel) 50 mg QHSP PRN PO INSOMNIA 04/08/21 16:05 04/09/21 20:41 Allergies Coded Allergies: Tetanus Vaccines and Toxoid (Verified Allergy, Unknown, 06/26/20) metoprolol (Verified Adverse Reaction, Severe, SECOND DEGREE HEART BLOCK, 11/15/20) MICHELLE FRIEDMAN M.D. Apr 10, 2021 09:36
[2021-04-10] MEDS: ACETAMINOPHEN TAB 650MG DOSE (2X325MG) PO PRN (11:12)
[2021-04-10] MEDS: BACLOFEN 10 MG TAB PO PRN ×2 (11:14→17:47)
[2021-04-10] MEDS: LORazepam 1 MG TAB PO PRN (12:27)
[2021-04-10] MEDS: ANALGESIC BALM CRM 3OZ TOP SCH ×3 (13:00→20:40)
--- NOTE | 2021-04-10 13:59 | HPEPDOC ---
General Date of Admission Apr 08, 2021 at 16:01 Date of Service: Apr 09, 2021 Chief Complaint The patient is a 61-year-old female admitted with a reason for visit of Major Depressive Disorder. Source: Patient History of Present Illness Patient is a 61 year-old female with past medical history of MDD, bipolar disorder, TMJ pain, ? Occipital Neuralgia, chronic headaches, tobacco use, h ypertension, diabetes mellitus, migraine headaches, CAD, chronic neck and back of head pain / C5-7 fusion who was admitted to inpatient mental health for unspecified depressive disorder. She is being examined here today for medical history and physical. She has been having back of neck , back of head pain and pain in both of her jaws more on the right for 2 to 3 years but has been really bad for the past 2 months so much so that she has been sleeping with ice packs at the back of her head. The pain is sometimes throbbing, sometimes shooting in nature and sharp. When she turns her head from side to side it becomes very sharp and this even leblanc her loose her balance. She also complains of severe pain in her jaws most on the right side chewing has become very difficult. She feels like she will be screaming during eating. These severe pain has been making her feel very depressed. SHe has been referred to pain management by her PMD. She also follows with neurology. Home Medications Scheduled Divalproex Sodium (Divalproex Sodium) 500 Mg Tablet.dr, 500 MG PO BID, (Reported) Lisinopril (Lisinopril) 40 Mg Tablet, 20 MG PO DAILY, (Reported) Metformin HCl (Metformin HCl) 1,000 Mg Tablet, 1,000 MG PO DAILY, (Reported) Mirtazapine (Mirtazapine) 7.5 Mg Tablet, 7.5 MG PO QHS, (Reported) Simethicone (Simethicone) 180 Mg Capsule, 180 MG PO BID, (Reported) Topiramate (Topiramate) 100 Mg Tablet, 100 MG PO BID, (Reported) Scheduled PRN Aspirin/Acetaminophen/Caffeine (Excedrin Migraine Caplet) 1 Each Tablet, 2 TAB- CAP PO Q6H PRN for HEADACHE, (Reported) Baclofen (Baclofen) 20 Mg Tablet, 20 MG PO TID PRN for MUSCLE SPASMS, (Reported) Tramadol HCl (Tramadol HCl) 50 Mg Tablet, 50 MG PO TID PRN for PAIN, (Reported) Allergies Coded Allergies: Tetanus Vaccines and Toxoid (Verified Allergy, Unknown, 06/26/20) metoprolol (Verified Adverse Reaction, Severe, SECOND DEGREE HEART BLOCK, 11/15/20) Past Medical History Medical History Migraine headaches Chronic neck and back pain / C5-7 fusion Chronic HTN NIDM2 CAD w placement of 2 stents Bipolar II Disorder MDD Surgical History Cervical neck fusion C5-7 with hardware Left kidney tumor removal Cardiac stent placement Family History Father: Healthy. at 64 years old Mother: Breast cancer, CAD. Alive A-FIB/CHADSVASC A-FIB History Current/History of A-Fib/PAF?: No Age/Risk Factor Scoring CHADSVASC: CHADSVASC Response (Comments) Value Age Risk Factor Age < 65 years old 0 Gender Risk Factor Female 1 Hx of CHF No 0 Hx of HTN Yes 1 Hx of Stroke/TIA/or VTE No 0 Hx of Diabetes No 0 Total 2 Review of Systems Constitutional: Denies: Chills, Fever, Night Sweats Eyes: Denies: Pain, Vision change ENT: Reports: Head Aches; Denies: Ear Pain, Dysphagia Pulmonary: Denies: Dyspnea, Cough Cardiovascular: Denies: Chest Pain, Palpitations, Orthopnea, Paroxysmal Noc. Dyspnea, Lt Headedness Gastrointestinal: Denies: Nausea, Vomiting, Abdominal Pain, Diarrhea Genitourinary: Denies: Dysuria, Frequency, Incontinence, Retention Hematologic: Denies: Bruising, Bleeding Excessively Musculoskeletal: Reports: Neck Pain, Back Pain Neurological: Denies: Weakness, Numbness, Change in speech, Confusion Psych: Reports: Depression Physical Examination General Exam: Positive: Alert, Cooperative, No Acute Distress Eye Exam: Positive: PERRLA, Conjunctiva & lids normal, EOMI; Negative: Sclera icteric ENT Exam: Positive: Atraumatic, Mucous membr. moist/pink, Pharynx Normal Neck Exam: Positive: Supple; Negative: JVD, thyromegaly Chest Exam: Positive: Clear to auscultation, Normal air movement Heart Exam: Positive: Rate Normal, Regular Rhythm, Normal S1, Normal S2; Negative: Murmurs, Rubs Telemetry: Positive: No significant arrhythmia Abdomen Exam: Positive: Normal bowel sounds, Soft; Negative: Tenderness, Hepatospenomegaly Extremity Exam: Negative: Clubbing, Cyanosis, Edema Skin Exam: Positive: Nl turgor and temperature; Negative: Breakdown, Lesion Neuro Exam: Positive: Normal Gait, Normal Speech, Cranial Nerves 3-12 NL, Reflexes 2+ Psych Exam: Positive: Oriented x 3 Vital Signs Vital Signs Date Time Temp Pulse Resp B/P (MAP) Pulse Ox O2 Delivery O2 Flow Rate FiO2 04/09/21 08:50 17 04/09/21 08:19 131/78 04/09/21 06:34 96.9 79 97 Room Air Laboratory Data Labs 24H Laboratory Tests 2 04/08/21 15:39: Coronavirus (COVID-19)(PCR) NEGATIVE, Influenza Type A (RT-PCR) NEGATIVE, Influenza Type B (RT-PCR) NEGATIVE, Respiratory Syncytial Virus (PCR) NEGATIVE Assessment/Plan 61 y/o F admitted to [facility] for unspecified depressive disorder. She is being examined here for medical history and physical Unspecified depressive disorder / MDD / suicidal ideation Plan per psychiatry team Chronic neck and back of head pain / C5-7 fusion/ TMJ pain/ low back pain/Neuralgia Tylenol and baclofen will start on scheduled ibuprofen, pamelor and skelaxin. Migraine headaches Chronic c/w topiramate and Excedrin migraine Chronic HTN Stable Continue lisinopril NIDM2 c/w metformin CAD w placement of 2 stents C/w ASA, statin Plan / VTE VTE Prophylaxis Ordered?: No (Freely ambulatory) JUAN CANO MD Apr 09, 2021 12:12
[2021-04-10] MEDS: METAXALONE 400 MG 1/2 TAB PO SCH ×2 (16:25→20:39)
[2021-04-10] MEDS: EXCEDRIN MIGRAINE TABLET PO PRN (17:47)
[2021-04-10 18:00] VITALS: BP 170/90
[2021-04-10] MEDS: MIRTAZAPINE 15 MG TAB PO SCH (20:38)
[2021-04-10] MEDS: NORTRIPTYLINE 10 MG CAP PO SCH (20:39)
[2021-04-10 22:50] VITALS: BP 141/63
[2021-04-11] MEDS: EXCEDRIN MIGRAINE TABLET PO PRN ×2 (00:11→11:00)
[2021-04-11] MEDS: traMADol 50 MG TAB PO PRN ×2 (01:41→20:17)
[2021-04-11 06:51] VITALS: BP 142/79
[2021-04-11] MEDS: METAXALONE 400 MG 1/2 TAB PO SCH ×3 (08:41→20:16)
[2021-04-11] MEDS: IBUPROFEN 400MG TAB PO SCH ×2 (08:41→20:16)
[2021-04-11] MEDS: TOPIRAMATE (TopAMAX) 100 MG TAB PO SCH ×2 (08:42→20:17)
[2021-04-11] MEDS: ANALGESIC BALM CRM 3OZ TOP SCH ×4 (08:42→20:17)
[2021-04-11] MEDS: metFORMIN (GLUCOPHAGE) 1000 MG TABLET PO SCH (08:42)
[2021-04-11] MEDS: DIVALPROEX 500 MG TAB PO SCH ×2 (08:42→20:17)
[2021-04-11] MEDS: NICOTINE 14 MG/24 HR TRANSDERMAL TD SCH (09:16)
[2021-04-11] MEDS: MOM 30ML SUSPENSION UDC PO PRN (09:16)
--- NOTE | 2021-04-11 15:43 | MHIPNPDOC ---
[facility] Progress Note Progress Note DATE OF SERVICE: 04/11/21 HISTORY: She reports a "terrific" pain and she says her docotr has told her he wants her to go to the [facility] Center because they found out she has a herniated d isk in he [facility] spine and they think she could improve if she receives a shot in there. She says she has LBP also. She says she still feels depressed but at the same time she feels a little motivated because [facility] is moving to [facility] and she says she will be getting help. VITAL SIGNS: See below. NEW TEST RESULTS:. CURRENT MEDICATIONS: See below. MENTAL STATUS EXAMINATION: Patient is a 61-year old female, who is in no acute distress. Speech: A liittle slow, normal tone and volume, spontaneous and fluent. Language skills are fair. Thought processes including: Linear and coherent Thought content: Redundant about pain and depression. Denies SI. Abstract reasoning, and computation: Poor. Description of associations: Not loose Description of abnormal or psychotic thoughts: Denies thought delusions, denies TAV hallucinations Judgment: Poor. Insight: Fair Orientation: O x 3 Recent and remote memory: Fair Attention span and concentration:. Language: no abnormalities observed Fund of knowledge:. Mood: Anxious and depressed. Affect: Blunted/flat DIAGNOSES: 1.. Major depression recurrent ASSESSMENT: She is complaining about pain, which has always been a problem for her. She says her depression is an 8/10 and she hinks it was very similar when she was admitted. She says she feels she's going to jump out of her skin because of the pain level, all the time. Not in danger to self or others at this time. MANAGEMENT PLAN: Will continue with current treatment plan. She says she would like to receive Anxiety medications but she already has them, Ativan 1 mg PO Q8HP for anxiety. She has been encouraged to request them if she feels very anxious, but reminded her she can't take more one tablet every 8 hours in 24 hours. TIME SPENT: 20 minutes. Vital Signs Vital Signs Date Time Temp Pulse Resp B/P (MAP) Pulse Ox O2 Delivery O2 Flow Rate FiO2 04/11/21 06:51 97.2 65 18 142/79 (100) 98 Room Air Current Medications Current Medications Medications (Trade) Dose Ordered Sig/Rao Route PRN Reason Start Time Stop Time Status Last Admin Dose Admin Acetaminophen (Tylenol Tab) 650 mg Q6HP PRN PO MILD HEADACHE or DISCOMFORT 04/08/21 16:05 04/10/21 11:12 Acetaminophen/ Aspirin/Caffeine (Excedrin Migraine) 1 ea Q6HP PRN PO MODERATE HEADACHE 04/08/21 16:05 04/11/21 11:00 Al Hydrox/Mg Hydrox/Simethicone (Mylanta) 30 ml Q4HP PRN PO HEARTBURN/INDIGESTION 04/08/21 16:05 04/10/21 02:20 Baclofen (Lioresal) 20 mg TID PRN PO MUSCLE SPASMS 04/08/21 16:05 04/10/21 17:47 Divalproex Sodium (Depakote) 500 mg BID PO 04/08/21 21:00 04/11/21 08:42 Home Med (Med Rec Complete!) ASDIRECTED XX 04/08/21 15:10 04/08/21 15:12 DC Ibuprofen (Advil) 400 mg BID PO 04/10/21 09:00 04/11/21 08:41 Lisinopril (Prinivil) 10 mg QHS PO 04/10/21 21:00 04/10/21 20:39 Lisinopril (Prinivil) 20 mg DAILY PO 04/09/21 09:00 04/11/21 08:41 Lorazepam (Ativan) 1 mg Q8HP PRN PO ANXIETY 04/10/21 12:20 04/10/21 12:27 Magnesium Hydroxide (Milk Of Magnesia) 30 ml DAILYPRN PRN PO CONSTIPATION 04/08/21 16:05 04/11/21 09:16 Menthol/Methyl Salicylate (Bengay Cream) To neck and jaws QID TOP 04/10/21 13:00 04/10/21 20:40 Metaxalone (Skelaxin) 400 mg TID PO 04/10/21 16:00 04/11/21 08:41 Metformin HCl (Glucophage) 1,000 mg DAILY PO 04/09/21 09:00 04/11/21 08:42 Mirtazapine (Remeron) 7.5 mg QHS PO 04/08/21 21:00 04/10/21 08:27 DC 04/09/21 20:41 Mirtazapine (Remeron) 15 mg QHS PO 04/10/21 21:00 04/10/21 20:38 Nicotine (Nicoderm Cq 14mg) 1 patch DAILY TD 04/09/21 09:00 04/11/21 09:16 Nortriptyline HCl (Pamelor) 10 mg QHS PO 04/10/21 21:00 04/10/21 20:39 Topiramate (TopAMAX) 100 mg BID PO 04/08/21 21:00 04/08/21 21:24 DC Topiramate (TopAMAX) 100 mg BID PO 04/08/21 21:00 04/11/21 08:42 Tramadol HCl (Ultram) 50 mg TID PRN PO P 04/08/21 16:05 04/11/21 01:41 Trazodone HCl (Desyrel) 50 mg QHSP PRN PO INSOMNIA 04/08/21 16:05 04/09/21 20:41 Allergies Coded Allergies: Tetanus Vaccines and Toxoid (Verified Allergy, Unknown, 06/26/20) metoprolol (Verified Adverse Reaction, Severe, SECOND DEGREE HEART BLOCK, 11/15/20) MYKE VALENCIA MD Apr 11, 2021 15:43
[2021-04-11] MEDS: LORazepam 1 MG TAB PO PRN (15:46)
[2021-04-11] MEDS: MIRTAZAPINE 15 MG TAB PO SCH (20:15)
[2021-04-11] MEDS: NORTRIPTYLINE 10 MG CAP PO SCH (20:16)
[2021-04-11] MEDS: traZODone 50 MG TAB PO PRN (20:17)
[2021-04-12] MEDS: BACLOFEN 10 MG TAB PO PRN (00:55)
[2021-04-12] MEDS: LORazepam 1 MG TAB PO PRN (00:55)
[2021-04-12 06:43] VITALS: BP 133/77
[2021-04-12] MEDS: metFORMIN (GLUCOPHAGE) 1000 MG TABLET PO SCH (08:15)
[2021-04-12] MEDS: IBUPROFEN 400MG TAB PO SCH ×2 (08:15→21:19)
[2021-04-12] MEDS: ANALGESIC BALM CRM 3OZ TOP SCH ×4 (08:15→21:25)
[2021-04-12] MEDS: DIVALPROEX 500 MG TAB PO SCH ×2 (08:16→21:24)
[2021-04-12] MEDS: TOPIRAMATE (TopAMAX) 100 MG TAB PO SCH ×2 (08:16→21:19)
[2021-04-12] MEDS: METAXALONE 400 MG 1/2 TAB PO SCH ×3 (08:16→21:24)
[2021-04-12] MEDS: MOM 30ML SUSPENSION UDC PO PRN (08:16)
[2021-04-12] MEDS: NICOTINE 14 MG/24 HR TRANSDERMAL TD SCH (08:18)
[2021-04-12] MEDS: SENOKOT S TAB PO SCH ×2 (11:07→21:19)
--- NOTE | 2021-04-12 14:51 | MHIPNPDOC ---
[facility] Progress Note Progress Note DATE OF SERVICE: 04/12/21 HISTORY: She reports a "terrific" pain and she says her docotr has told her he wants [facility] to [facility] because they found out she has a herniated di sk in he [facility] and they think she could improve if she receives a shot in there. She says she has LBP also. She says she still feels depressed but at the same time she feels a little motivated because [facility] is moving to [facility] and she says she will be getting help. VITAL SIGNS: See below. NEW TEST RESULTS:. CURRENT MEDICATIONS: See below. MENTAL STATUS EXAMINATION: Patient is a 61-year old female, who is in no acute distress. Speech: slow, normal tone and volume, spontaneous but perseveraes about medical complaints Language skills are fair. Thought processes including: Linear, not very productive, fixated on pain and pain meications Thought content: Redundant about pain and depression. Denies SI. Abstract reasoning, and computation: Poor. Description of associations: Not loose Description of abnormal or psychotic thoughts: Denies thought delusions, denies TAV hallucinations Judgment: Poor. Insight: Poor Orientation: O x 3 Recent and remote memory: Fair Attention span and concentration: OK Language: no abnormalities observed Mood: Anxious Affect: Blunted/flat DIAGNOSES: 1.. Major depression recurrent ASSESSMENT: she continues to complain about pain, she is fixated on this subject and on pain medications, she says she is anxious but she doesn't look as anxious as she says she is. MANAGEMENT PLAN: Will continue with the same treatment plan. TIME SPENT: 20 minutes. Vital Signs Vital Signs Date Time Temp Pulse Resp B/P (MAP) Pulse Ox O2 Delivery O2 Flow Rate FiO2 04/12/21 08:16 192/95 04/12/21 06:43 97.8 76 20 97 Room Air Current Medications Current Medications Medications (Trade) Dose Ordered Sig/Rao Route PRN Reason Start Time Stop Time Status Last Admin Dose Admin Acetaminophen (Tylenol Tab) 650 mg Q6HP PRN PO MILD HEADACHE or DISCOMFORT 04/08/21 16:05 04/10/21 11:12 Acetaminophen/ Aspirin/Caffeine (Excedrin Migraine) 1 ea Q6HP PRN PO MODERATE HEADACHE 04/08/21 16:05 04/11/21 11:00 Al Hydrox/Mg Hydrox/Simethicone (Mylanta) 30 ml Q4HP PRN PO HEARTBURN/INDIGESTION 04/08/21 16:05 04/10/21 02:20 Baclofen (Lioresal) 20 mg TID PRN PO MUSCLE SPASMS 04/08/21 16:05 04/12/21 00:55 Divalproex Sodium (Depakote) 500 mg BID PO 04/08/21 21:00 04/12/21 08:16 Home Med (Med Rec Complete!) ASDIRECTED XX 04/08/21 15:10 04/08/21 15:12 DC Ibuprofen (Advil) 400 mg BID PO 04/10/21 09:00 04/12/21 08:15 Lisinopril (Prinivil) 10 mg QHS PO 04/10/21 21:00 04/11/21 20:16 Lisinopril (Prinivil) 20 mg DAILY PO 04/09/21 09:00 04/12/21 08:16 Lorazepam (Ativan) 1 mg Q8HP PRN PO ANXIETY 04/10/21 12:20 04/12/21 00:55 Magnesium Hydroxide (Milk Of Magnesia) 30 ml DAILYPRN PRN PO CONSTIPATION 04/08/21 16:05 04/12/21 08:16 Menthol/Methyl Salicylate (Bengay Cream) To neck and jaws QID TOP 04/10/21 13:00 04/12/21 13:59 Metaxalone (Skelaxin) 400 mg TID PO 04/10/21 16:00 04/12/21 08:16 Metformin HCl (Glucophage) 1,000 mg DAILY PO 04/09/21 09:00 04/12/21 08:15 Mirtazapine (Remeron) 7.5 mg QHS PO 04/08/21 21:00 04/10/21 08:27 DC 04/09/21 20:41 Mirtazapine (Remeron) 15 mg QHS PO 04/10/21 21:00 04/11/21 20:15 Nicotine (Nicoderm Cq 14mg) 1 patch DAILY TD 04/09/21 09:00 04/12/21 08:18 Nortriptyline HCl (Pamelor) 10 mg QHS PO 04/10/21 21:00 04/11/21 20:16 Senna/Docusate Sodium (Senokot S) 1 tab BID PO 04/12/21 11:00 04/12/21 11:07 Topiramate (TopAMAX) 100 mg BID PO 04/08/21 21:00 04/08/21 21:24 DC Topiramate (TopAMAX) 100 mg BID PO 04/08/21 21:00 04/12/21 08:16 Tramadol HCl (Ultram) 50 mg TID PRN PO P 04/08/21 16:05 04/11/21 20:17 Trazodone HCl (Desyrel) 50 mg QHSP PRN PO INSOMNIA 04/08/21 16:05 04/11/21 20:17 Allergies Coded Allergies: Tetanus Vaccines and Toxoid (Verified Allergy, Unknown, 06/26/20) metoprolol (Verified Adverse Reaction, Severe, SECOND DEGREE HEART BLOCK, 11/15/20) MYKE VALENCIA MD Apr 12, 2021 14:51
[2021-04-12] MEDS: NORTRIPTYLINE 10 MG CAP PO SCH (21:18)
[2021-04-12] MEDS: MIRTAZAPINE 15 MG TAB PO SCH (21:20)
[2021-04-13] MEDS: metFORMIN (GLUCOPHAGE) 1000 MG TABLET PO SCH (08:43)
[2021-04-13] MEDS: SENOKOT S TAB PO SCH ×2 (08:43→20:29)
[2021-04-13] MEDS: NICOTINE 14 MG/24 HR TRANSDERMAL TD SCH (08:43)
[2021-04-13] MEDS: IBUPROFEN 400MG TAB PO SCH ×2 (08:44→20:29)
[2021-04-13] MEDS: ANALGESIC BALM CRM 3OZ TOP SCH ×4 (08:45→20:31)
[2021-04-13] MEDS: TOPIRAMATE (TopAMAX) 100 MG TAB PO SCH ×2 (08:45→20:28)
[2021-04-13] MEDS: METAXALONE 400 MG 1/2 TAB PO SCH ×3 (08:45→20:29)
[2021-04-13] MEDS: DIVALPROEX 500 MG TAB PO SCH ×2 (08:45→20:28)
[2021-04-13] MEDS: LORazepam 1 MG TAB PO PRN ×2 (08:49→18:12)
--- NOTE | 2021-04-13 08:52 | MHIPNPDOC ---
[facility] Progress Note Progress Note DATE OF SERVICE: 04/13/21 Patient appears slightly less irritated and a little more animated but is still complaining significant pain in her head and neck. She is very somatically preo ccupied and is feeling depressed and frustrated due to her chronic pain issues but not apparently slept well and tolerating increased Remeron without any side effect. She is in good control and has not shown any acting out behavior and denies any suicidal intent but remains depressed and quite somatic. HISTORY:. VITAL SIGNS: See below. NEW TEST RESULTS:. CURRENT MEDICATIONS: See below. MENTAL STATUS EXAMINATION: Patient is a 61-year old female, who is in no acute distress. Speech: Is relevant and little more productive. Language skills are fair. Thought processes including: Coherent but not spontaneous. Thought content: Preoccupied with pain. Abstract reasoning, and computation: Fair. Description of associations: Organized. Description of abnormal or psychotic thoughts: No gross psychotic symptoms. Judgment: Fair. Insight: Poor. Orientation: Oriented. Recent and remote memory: No gross impairment. Attention span and concentration: Poor. Language:. Fund of knowledge:. Mood: Anxious and depressed. Affect: Quite blunted and preoccupied. DIAGNOSES: 1.. Major depression 2.. 3.. ASSESSMENT: Remains somatically preoccupied and depressed MANAGEMENT PLAN: Continue with the current treatment. TIME SPENT: 20 minutes. Vital Signs Vital Signs Date Time Temp Pulse Resp B/P (MAP) Pulse Ox O2 Delivery O2 Flow Rate FiO2 04/12/21 21:24 142/79 04/12/21 06:43 97.8 76 20 97 Room Air Current Medications Current Medications Medications (Trade) Dose Ordered Sig/Rao Route PRN Reason Start Time Stop Time Status Last Admin Dose Admin Acetaminophen (Tylenol Tab) 650 mg Q6HP PRN PO MILD HEADACHE or DISCOMFORT 04/08/21 16:05 04/10/21 11:12 Acetaminophen/ Aspirin/Caffeine (Excedrin Migraine) 1 ea Q6HP PRN PO MODERATE HEADACHE 04/08/21 16:05 04/11/21 11:00 Al Hydrox/Mg Hydrox/Simethicone (Mylanta) 30 ml Q4HP PRN PO HEARTBURN/INDIGESTION 04/08/21 16:05 04/10/21 02:20 Baclofen (Lioresal) 20 mg TID PRN PO MUSCLE SPASMS 04/08/21 16:05 04/12/21 00:55 Divalproex Sodium (Depakote) 500 mg BID PO 04/08/21 21:00 04/12/21 21:24 Home Med (Med Rec Complete!) ASDIRECTED XX 04/08/21 15:10 04/08/21 15:12 DC Ibuprofen (Advil) 400 mg BID PO 04/10/21 09:00 04/12/21 21:19 Lisinopril (Prinivil) 10 mg QHS PO 04/10/21 21:00 04/12/21 21:24 Lisinopril (Prinivil) 20 mg DAILY PO 04/09/21 09:00 04/12/21 08:16 Lorazepam (Ativan) 1 mg Q8HP PRN PO ANXIETY 04/10/21 12:20 04/12/21 00:55 Magnesium Hydroxide (Milk Of Magnesia) 30 ml DAILYPRN PRN PO CONSTIPATION 04/08/21 16:05 04/12/21 08:16 Menthol/Methyl Salicylate (Bengay Cream) To neck and jaws QID TOP 04/10/21 13:00 04/12/21 21:25 Metaxalone (Skelaxin) 400 mg TID PO 04/10/21 16:00 04/12/21 21:24 Metformin HCl (Glucophage) 1,000 mg DAILY PO 04/09/21 09:00 04/12/21 08:15 Mirtazapine (Remeron) 7.5 mg QHS PO 04/08/21 21:00 04/10/21 08:27 DC 04/09/21 20:41 Mirtazapine (Remeron) 15 mg QHS PO 04/10/21 21:00 04/12/21 21:20 Nicotine (Nicoderm Cq 14mg) 1 patch DAILY TD 04/09/21 09:00 04/12/21 08:18 Nortriptyline HCl (Pamelor) 10 mg QHS PO 04/10/21 21:00 04/12/21 21:18 Senna/Docusate Sodium (Senokot S) 1 tab BID PO 04/12/21 11:00 04/12/21 21:19 Topiramate (TopAMAX) 100 mg BID PO 04/08/21 21:00 04/08/21 21:24 DC Topiramate (TopAMAX) 100 mg BID PO 04/08/21 21:00 04/12/21 21:19 Tramadol HCl (Ultram) 50 mg TID PRN PO P 04/08/21 16:05 04/11/21 20:17 Trazodone HCl (Desyrel) 50 mg QHSP PRN PO INSOMNIA 04/08/21 16:05 04/11/21 20:17 Allergies Coded Allergies: Tetanus Vaccines and Toxoid (Verified Allergy, Unknown, 06/26/20) metoprolol (Verified Adverse Reaction, Severe, SECOND DEGREE HEART BLOCK, 11/15/20) MICHELLE FRIEDMAN M.D. Apr 13, 2021 08:52
[2021-04-13] MEDS: BACLOFEN 10 MG TAB PO PRN (12:55)
[2021-04-13] MEDS: traMADol 50 MG TAB PO PRN ×2 (12:56→23:38)
[2021-04-13 17:36] VITALS: BP 143/67
[2021-04-13] MEDS: EXCEDRIN MIGRAINE TABLET PO PRN (18:12)
[2021-04-13] MEDS: MIRTAZAPINE 15 MG TAB PO SCH (20:29)
[2021-04-13] MEDS: NORTRIPTYLINE 10 MG CAP PO SCH (20:29)
[2021-04-13] MEDS: traZODone 50 MG TAB PO PRN (20:29)
[2021-04-13] MEDS: ACETAMINOPHEN TAB 650MG DOSE (2X325MG) PO PRN (23:38)
[2021-04-14] MEDS: LORazepam 1 MG TAB PO PRN ×2 (04:16→14:23)
[2021-04-14] MEDS: EXCEDRIN MIGRAINE TABLET PO PRN ×2 (04:50→14:23)
[2021-04-14 06:13] VITALS: BP 123/66
[2021-04-14] MEDS: SENOKOT S TAB PO SCH ×2 (09:02→20:20)
[2021-04-14] MEDS: metFORMIN (GLUCOPHAGE) 1000 MG TABLET PO SCH (09:02)
[2021-04-14] MEDS: METAXALONE 400 MG 1/2 TAB PO SCH ×3 (09:02→20:20)
[2021-04-14] MEDS: ANALGESIC BALM CRM 3OZ TOP SCH ×4 (09:02→20:22)
[2021-04-14] MEDS: DIVALPROEX 500 MG TAB PO SCH ×2 (09:04→20:20)
[2021-04-14] MEDS: IBUPROFEN 400MG TAB PO SCH ×2 (09:04→20:20)
[2021-04-14] MEDS: TOPIRAMATE (TopAMAX) 100 MG TAB PO SCH ×2 (09:04→20:20)
[2021-04-14] MEDS: NICOTINE 14 MG/24 HR TRANSDERMAL TD SCH (09:05)
--- NOTE | 2021-04-14 10:27 | MHIPNPDOC ---
[facility] Progress Note Progress Note DATE OF SERVICE: 04/14/21 The patient states that she is beginning to feel a little better since yesterday. She is slept good with her medications and tolerating increased Remeron without any complaint of side effects. She stated that her pain is not as severe and she is not as distressed with the pain and feeling a little more peaceful. She appears much less intense not irritable slightly more animated. She is denying any active suicidal thoughts and feeling more hopeful. HISTORY:. VITAL SIGNS: See below. NEW TEST RESULTS:. CURRENT MEDICATIONS: See below. MENTAL STATUS EXAMINATION: Patient is a 61-year old female, who is cooperative and in no acute distress. Speech: Is rational and coherent. Language skills are good. Thought processes including: More spontaneous. Thought content: Denies any preoccupation with the pain or suicidal thoughts. Abstract reasoning, and computation: Fair. Description of associations: Organized. Description of abnormal or psychotic thoughts: Denies any hallucinations or paranoia. Judgment: Fair. Insight: Fair. Orientation: Well oriented. Recent and remote memory: No impairment. Attention span and concentration: Fair. Language:. Fund of knowledge:. Mood: Not feeling as irritable or depressed. Affect: More animated and appropriate. DIAGNOSES: 1.. Major depression recurrent 2.. 3.. ASSESSMENT: Showing slight improvement MANAGEMENT PLAN: Continue with the current medicine and supportive therapy. TIME SPENT: 20 minutes. Vital Signs Vital Signs Date Time Temp Pulse Resp B/P (MAP) Pulse Ox O2 Delivery O2 Flow Rate FiO2 04/14/21 09:03 144/77 04/14/21 06:13 96.3 76 16 100 Room Air Current Medications Current Medications Medications (Trade) Dose Ordered Sig/Rao Route PRN Reason Start Time Stop Time Status Last Admin Dose Admin Acetaminophen (Tylenol Tab) 650 mg Q6HP PRN PO MILD HEADACHE or DISCOMFORT 04/08/21 16:05 04/13/21 23:38 Acetaminophen/ Aspirin/Caffeine (Excedrin Migraine) 1 ea Q6HP PRN PO MODERATE HEADACHE 04/08/21 16:05 04/14/21 04:50 Al Hydrox/Mg Hydrox/Simethicone (Mylanta) 30 ml Q4HP PRN PO HEARTBURN/INDIGESTION 04/08/21 16:05 04/10/21 02:20 Baclofen (Lioresal) 20 mg TID PRN PO MUSCLE SPASMS 04/08/21 16:05 04/13/21 12:55 Divalproex Sodium (Depakote) 500 mg BID PO 04/08/21 21:00 04/14/21 09:04 Home Med (Med Rec Complete!) ASDIRECTED XX 04/08/21 15:10 04/08/21 15:12 DC Ibuprofen (Advil) 400 mg BID PO 04/10/21 09:00 04/14/21 09:04 Lisinopril (Prinivil) 10 mg QHS PO 04/10/21 21:00 04/13/21 20:29 Lisinopril (Prinivil) 20 mg DAILY PO 04/09/21 09:00 04/14/21 09:03 Lorazepam (Ativan) 1 mg Q8HP PRN PO ANXIETY 04/10/21 12:20 04/14/21 04:16 Magnesium Hydroxide (Milk Of Magnesia) 30 ml DAILYPRN PRN PO CONSTIPATION 04/08/21 16:05 04/12/21 08:16 Menthol/Methyl Salicylate (Bengay Cream) To neck and jaws QID TOP 04/10/21 13:00 04/14/21 09:02 Metaxalone (Skelaxin) 400 mg TID PO 04/10/21 16:00 04/14/21 09:02 Metformin HCl (Glucophage) 1,000 mg DAILY PO 04/09/21 09:00 04/14/21 09:02 Mirtazapine (Remeron) 7.5 mg QHS PO 04/08/21 21:00 04/10/21 08:27 DC 04/09/21 20:41 Mirtazapine (Remeron) 15 mg QHS PO 04/10/21 21:00 04/13/21 20:29 Miscellaneous (Unresolved Clarification Entry) SEE LABEL COMMENTS DAILY XX 04/13/21 09:00 04/13/21 10:49 DC Nicotine (Nicoderm Cq 14mg) 1 patch DAILY TD 04/09/21 09:00 04/14/21 09:05 Nortriptyline HCl (Pamelor) 10 mg QHS PO 04/10/21 21:00 04/13/21 20:29 Senna/Docusate Sodium (Senokot S) 1 tab BID PO 04/12/21 11:00 04/14/21 09:02 Topiramate (TopAMAX) 100 mg BID PO 04/08/21 21:00 04/08/21 21:24 DC Topiramate (TopAMAX) 100 mg BID PO 04/08/21 21:00 04/14/21 09:04 Tramadol HCl (Ultram) 50 mg TID PRN PO P 04/08/21 16:05 04/13/21 23:38 Trazodone HCl (Desyrel) 50 mg QHSP PRN PO INSOMNIA 04/08/21 16:05 04/13/21 20:29 Allergies Coded Allergies: Tetanus Vaccines and Toxoid (Verified Allergy, Unknown, 06/26/20) metoprolol (Verified Adverse Reaction, Severe, SECOND DEGREE HEART BLOCK, 11/15/20) MICHELLE FRIEDMAN M.D. Apr 14, 2021 10:27
[2021-04-14 16:24] VITALS: BP 137/85
[2021-04-14 16:25] VITALS: BP 123/72
[2021-04-14] MEDS: NORTRIPTYLINE 10 MG CAP PO SCH (20:20)
[2021-04-14] MEDS: MIRTAZAPINE 15 MG TAB PO SCH (20:20)
[2021-04-15 05:57] VITALS: BP 141/79
--- NOTE | 2021-04-15 08:34 | MHIPNPDOC ---
[facility] Progress Note Progress Note DATE OF SERVICE: 04/15/21 Patient reports that she slept through the night and only wake up once and is feeling rested. She also stated that the pain is not as intense and is feeling not as hopeless or depressed. She is tolerating increased Remeron without any complaint of side effect and is showing significant reduction in her anxious mood and is denying any active suicidal thoughts. HISTORY:. VITAL SIGNS: See below. NEW TEST RESULTS:. CURRENT MEDICATIONS: See below. MENTAL STATUS EXAMINATION: Patient is a 61-year old female, who is in no acute distress. Speech: Is rational. Language skills are fair. Thought processes including: Relevant and coherent. Thought content: Denies any active suicidal thoughts. Abstract reasoning, and computation: Fair. Description of associations: Organized. Description of abnormal or psychotic thoughts: No psychotic symptoms. Judgment: Fair. Insight: [Fair. Orientation: Well oriented. Recent and remote memory: No impairment. Attention span and concentration: Fair. Language:. Fund of knowledge:. Mood: Not feeling as anxious or depressed. Affect: More animated. DIAGNOSES: 1.. Major depression recurrent 2.. 3.. ASSESSMENT: Showing improvement MANAGEMENT PLAN: Continue with the current medicine and supportive therapy possible discharge tomorrow. TIME SPENT: 20 minutes. Vital Signs Vital Signs Date Time Temp Pulse Resp B/P (MAP) Pulse Ox O2 Delivery O2 Flow Rate FiO2 04/15/21 05:57 97.6 62 14 141/79 (99) 96 Room Air Current Medications Current Medications Medications (Trade) Dose Ordered Sig/Rao Route PRN Reason Start Time Stop Time Status Last Admin Dose Admin Acetaminophen (Tylenol Tab) 650 mg Q6HP PRN PO MILD HEADACHE or DISCOMFORT 04/08/21 16:05 04/13/21 23:38 Acetaminophen/ Aspirin/Caffeine (Excedrin Migraine) 1 ea Q6HP PRN PO MODERATE HEADACHE 04/08/21 16:05 04/14/21 14:23 Al Hydrox/Mg Hydrox/Simethicone (Mylanta) 30 ml Q4HP PRN PO HEARTBURN/INDIGESTION 04/08/21 16:05 04/10/21 02:20 Baclofen (Lioresal) 20 mg TID PRN PO MUSCLE SPASMS 04/08/21 16:05 04/13/21 12:55 Divalproex Sodium (Depakote) 500 mg BID PO 04/08/21 21:00 04/14/21 20:20 Home Med (Med Rec Complete!) ASDIRECTED XX 04/08/21 15:10 04/08/21 15:12 DC Ibuprofen (Advil) 400 mg BID PO 04/10/21 09:00 04/14/21 20:20 Lisinopril (Prinivil) 10 mg QHS PO 04/10/21 21:00 04/14/21 20:19 Lisinopril (Prinivil) 20 mg DAILY PO 04/09/21 09:00 04/14/21 09:03 Lorazepam (Ativan) 1 mg Q8HP PRN PO ANXIETY 04/10/21 12:20 04/14/21 14:23 Magnesium Hydroxide (Milk Of Magnesia) 30 ml DAILYPRN PRN PO CONSTIPATION 04/08/21 16:05 04/12/21 08:16 Menthol/Methyl Salicylate (Bengay Cream) To neck and jaws QID TOP 04/10/21 13:00 04/14/21 16:44 Metaxalone (Skelaxin) 400 mg TID PO 04/10/21 16:00 04/14/21 20:20 Metformin HCl (Glucophage) 1,000 mg DAILY PO 04/09/21 09:00 04/14/21 09:02 Mirtazapine (Remeron) 7.5 mg QHS PO 04/08/21 21:00 04/10/21 08:27 DC 04/09/21 20:41 Mirtazapine (Remeron) 15 mg QHS PO 04/10/21 21:00 04/14/21 20:20 Miscellaneous (Unresolved Clarification Entry) SEE LABEL COMMENTS DAILY XX 04/13/21 09:00 04/13/21 10:49 DC Nicotine (Nicoderm Cq 14mg) 1 patch DAILY TD 04/09/21 09:00 04/14/21 09:05 Nortriptyline HCl (Pamelor) 10 mg QHS PO 04/10/21 21:00 04/14/21 20:20 Senna/Docusate Sodium (Senokot S) 1 tab BID PO 04/12/21 11:00 04/14/21 20:20 Topiramate (TopAMAX) 100 mg BID PO 04/08/21 21:00 04/08/21 21:24 DC Topiramate (TopAMAX) 100 mg BID PO 04/08/21 21:00 04/14/21 20:20 Tramadol HCl (Ultram) 50 mg TID PRN PO P 04/08/21 16:05 04/13/21 23:38 Trazodone HCl (Desyrel) 50 mg QHSP PRN PO INSOMNIA 04/08/21 16:05 04/13/21 20:29 Allergies Coded Allergies: Tetanus Vaccines and Toxoid (Verified Allergy, Unknown, 06/26/20) metoprolol (Verified Adverse Reaction, Severe, SECOND DEGREE HEART BLOCK, 11/15/20) MICHELLE FRIEDMAN M.D. Apr 15, 2021 08:34
[2021-04-15] MEDS: NICOTINE 14 MG/24 HR TRANSDERMAL TD SCH (09:00)
[2021-04-15] MEDS: metFORMIN (GLUCOPHAGE) 1000 MG TABLET PO SCH (09:04)
[2021-04-15] MEDS: ANALGESIC BALM CRM 3OZ TOP SCH ×4 (09:04→20:07)
[2021-04-15] MEDS: SENOKOT S TAB PO SCH ×2 (09:04→20:06)
[2021-04-15] MEDS: TOPIRAMATE (TopAMAX) 100 MG TAB PO SCH ×2 (09:05→20:05)
[2021-04-15] MEDS: IBUPROFEN 400MG TAB PO SCH ×2 (09:05→20:06)
[2021-04-15] MEDS: METAXALONE 400 MG 1/2 TAB PO SCH ×3 (09:05→20:05)
[2021-04-15] MEDS: DIVALPROEX 500 MG TAB PO SCH ×2 (09:05→20:05)
[2021-04-15] MEDS: BACLOFEN 10 MG TAB PO PRN (12:43)
[2021-04-15 16:14] VITALS: BP 111/64
[2021-04-15] MEDS: NORTRIPTYLINE 10 MG CAP PO SCH (20:05)
[2021-04-15] MEDS: MIRTAZAPINE 15 MG TAB PO SCH (20:05)
[2021-04-16 07:12] VITALS: BP 117/84
[2021-04-16] MEDS: SENOKOT S TAB PO SCH (08:16)
[2021-04-16] MEDS: NICOTINE 14 MG/24 HR TRANSDERMAL TD SCH (08:16)
[2021-04-16 08:17] VITALS: BP 140/90
[2021-04-16] MEDS: DIVALPROEX 500 MG TAB PO SCH (08:17)
[2021-04-16] MEDS: METAXALONE 400 MG 1/2 TAB PO SCH (08:17)
[2021-04-16] MEDS: TOPIRAMATE (TopAMAX) 100 MG TAB PO SCH (08:17)
[2021-04-16] MEDS: metFORMIN (GLUCOPHAGE) 1000 MG TABLET PO SCH (08:17)
[2021-04-16] MEDS: ANALGESIC BALM CRM 3OZ TOP SCH (08:18)
[2021-04-16] MEDS: IBUPROFEN 400MG TAB PO SCH (08:18)
[2021-04-16] MEDS ORDERED: MIRT-62 PO (08:53)
--- NOTE | 2021-04-16 10:34 | MHDSPDOC ---
[facility] Discharge Summary Discharge Summary DATE OF ADMISSION: Apr 08, 2021 at 16:01 DATE OF DISCHARGE: April 16, 2021 DISCHARGE DIAGNOSES: 1.. Major depression recurrent 2.. REASON FOR ADMISSION: 61-year-old female with long history of depression admitted due to complaint of increasing depression and vague suicidal thoughts. Patient is active with outpatient treatment but reported that her medications are not working and she is also under stress from her chronic pain issues and reported vague suicidal thoughts and admitted for stabilization. CONSULTANTS INVOLVED: TREATMENT AND PROGRESS ON THE UNIT : She was maintained on no diabetes and hypertension medicine and restarted on Remeron 7.5 mg at bedtime increased to 15 mg at bedtime. She was initially very somatically preoccupied complaining of chronic pain and headache and markedly withdrawn and preoccupied. She tolerated Remeron without any complaint of side effect and slept much better and showed a gradual improvement with decreased somatic preoccupation and improved sleep. She is denying any suicidal thoughts anymore and shows a more animated and spontaneous affect and reports feeling better and safe.. HOSPITAL COURSE: Patient showed a gradual improvement with improved anxiety sleep and denies any suicidal thoughts. She is not preoccupied with her chronic pain issues and appears more animated and spontaneous. DISCHARGE ASSESSMENT: Much improved and stable and not suicidal. MENTAL STATUS EXAMINATION ON DISCHARGE: Patient is a 61-year old female, who is in good control. Speech is rational and coherent. Language skills are fair. Thought processes including: Relevant but not very productive. Thought content: Denies any suicidal thoughts. Abstract reasoning, and computation: Fair. Description of associations: Organized. Description of abnormal or psychotic thoughts: No psychotic symptoms at all. Judgment: Fair. Insight: Fair. Orientation to oriented. Recent and remote memory: No impairment. Attention span and concentration: Fair. Language:. Fund of knowledge:. Mood: Not feeling as depressed. Affect: Appropriate. MEDICATIONS ON DISCHARGE: -For. Remeron 15 mg at bedtime 7 days with 3 refills -For. -For. PLAN/FOLLOWUP ARRANGEMENTS: Continue current outpatient clinic. The amount of time spent in the coordination of care for this patient was approximately 30 minutes. ETOH/Disorder Med Rx ETOH/DRUG DISORDER RX: N/A Vital Signs/I&Os Vital Signs Date Time Temp Pulse Resp B/P (MAP) Pulse Ox O2 Delivery O2 Flow Rate FiO2 04/16/21 08:17 140/90 04/16/21 07:12 97.0 74 16 Room Air 04/15/21 16:14 97 Medications Scheduled Divalproex Sodium (Divalproex Sodium) 500 Mg Tablet.dr, 500 MG PO BID, (Reported) Lisinopril (Lisinopril) 40 Mg Tablet, 20 MG PO DAILY, (Reported) Metformin HCl (Metformin HCl) 1,000 Mg Tablet, 1,000 MG PO DAILY, (Reported) Mirtazapine (Remeron) 15 Mg Tablet, 15 MG PO QHS for depression for 7 Days, #7 Simethicone (Simethicone) 180 Mg Capsule, 180 MG PO BID, (Reported) Topiramate (Topiramate) 100 Mg Tablet, 100 MG PO BID, (Reported) Scheduled PRN Aspirin/Acetaminophen/Caffeine (Excedrin Migraine Caplet) 1 Each Tablet, 2 TAB- CAP PO Q6H PRN for HEADACHE, (Reported) Baclofen (Baclofen) 20 Mg Tablet, 20 MG PO TID PRN for MUSCLE SPASMS, (Reported) Tramadol HCl (Tramadol HCl) 50 Mg Tablet, 50 MG PO TID PRN for PAIN, (Reported) Allergies Coded Allergies: Tetanus Vaccines and Toxoid (Verified Allergy, Unknown, 06/26/20) metoprolol (Verified Adverse Reaction, Severe, SECOND DEGREE HEART BLOCK, 11/15/20) MICHELLE FRIEDMAN M.D. Apr 16, 2021 10:34
== END 2021-04-16 11:51 | disposition home or self-care (01) | DRG 885 ==
LOC: M ED 10:40 → M PSY 16:01 → M ED 17:34 → M PSY 04-09 11:33
PROVIDERS: ADMIT Psychiatry & Neurology Psychiatry; ATTEND Psychiatry & Neurology Psychiatry
DX: F33.0 Major depressive disorder, recurrent, mild (principal); R45.851 Suicidal ideations; E11.9 Type 2 diabetes mellitus without complications; I10 Essential (primary) hypertension; F17.210 Nicotine dependence, cigarettes, uncomplicated; Z20.822 Contact with and (suspected) exposure to COVID-19; Z79.899 Other long term (current) drug therapy; Z88.7 Allergy status to serum and vaccine; Z88.8 Allergy status to other drugs, medicaments and biological substances; G43.909 Migraine, unspecified, not intractable, without status migrainosus; M54.2 Cervicalgia; I25.10 Atherosclerotic heart disease of native coronary artery without angina pectoris; Z95.5 Presence of coronary angioplasty implant and graft; Z98.1 Arthrodesis status

== ENCOUNTER → 2021-06-08 | Outpatient (CLI) | payer MEDICARE, MEDICAID ==
[~2021-06-08] MED LIST changes: +FLUP2.5T12; +IBUP-1022 PO; +LISI10TA22; +MIRT1TAB PO; -QUET50TA3 PO; +QUET50TA4 PO; +TIZA4TAB4
== END ==
LOC: M LABSMTC 11:33
PROVIDERS: ATTEND Anesthesiology
DX: Z01.812 Encounter for preprocedural laboratory examination (principal); Z20.822 Contact with and (suspected) exposure to COVID-19

== ENCOUNTER 2021-06-12 06:06 | Day surgery (SDC) | payer MEDICARE, MEDICAID ==
[~2021-06-12] VITALS: Ht 160 cm; Wt 86.7 kg
[~2021-06-12 06:06] MED LIST changes: +LR 1,000 ML IV ONE
[2021-06-12] MEDS ORDERED: dexameTHASONE 4 MG/ML 1ML VIAL (J1100 PER 1MG) As Ordered ONE (07:13)
[2021-06-12] MEDS ORDERED: MIDAZOLAM INJ 2MG/2ML VIAL (J2250 PER 1MG) As Ordered ONE (07:13)
[2021-06-12] MEDS ORDERED: BUPIVACAINE/EPIN 0.25% 30 ML VIAL As Ordered ONE (07:13)
[2021-06-12] MEDS ORDERED: LIDOCAINE 2% 100MG/5ML SDV (FOR ANES.) As Ordered ONE (07:15)
[2021-06-12] MEDS ORDERED: fentaNYL 100 MCG/2 ML INJECTION (J3010) As Ordered ONE (07:15)
[2021-06-12] MEDS ORDERED: ROCURONIUM BROMIDE 50 MG/5 ML VIAL As Ordered ONE (07:15)
[2021-06-12] MEDS ORDERED: PHENYLephrine 500MCG 5ML (100MCG/ML) SYRINGE As Ordered ONE (07:51)
[2021-06-12] MEDS ORDERED: ACETAMINOPHEN 1000MG 100ML IV BTL (OFIRMEV) (J0131 PER 10MG) As Ordered ONE (07:52)
[2021-06-12] MEDS ORDERED: propofoL 200 MG/20 ML VIAL As Ordered ONE (08:05)
[2021-06-12] MEDS ORDERED: SUGAMMADEX SODIUM 500 MG/5 ML VIAL (BRIDION) As Ordered ONE (08:06)
[2021-06-12] MEDS ORDERED: ONDANSETRON 4MG/2ML VIAL As Ordered ONE (08:06)
[2021-06-12] MEDS ORDERED: LR 1,000 ML IV SCH (08:45)
[2021-06-12] MEDS ORDERED: ONDANSETRON 4MG/2ML VIAL IV PRN (08:45)
[2021-06-12] MEDS ORDERED: oxyCODONE 5MG TAB PO PRN (08:45)
[2021-06-12] MEDS: fentaNYL 100 MCG/2 ML INJECTION (J3010) IV PRN ×2 (08:46→08:52)
[2021-06-12] MEDS ORDERED: NORCO, ANEXSIA 5/325MG TABLET (HYDROcodone/ACETAMINOPHEN) PO PRN (09:15)
[2021-06-12 09:18] VITALS: BP 159/82
--- NOTE | 2021-06-12 11:36 | RO ---
OPERATIVE NOTE DATE OF OPERATION: 06/12/2021 PREOPERATIVE DIAGNOSIS: Symptomatic cholelithiasis. POSTOPERATIVE DIAGNOSIS: Symptomatic cholelithiasis. PROCEDURE: Robotic cholecystectomy. SURGEON: Merritt Cuello DO ASSIST: Clarisse Richard ANESTHESIA: General. EBL: 5 mL. COMPLICATIONS: None. INDICATIONS FOR PROCEDURE: The patient is a 61-year-old female who presents with right upper quadrant pain and was found to have symptomatic cholelithiasis. Recommendation was to proceed with robotic cholecystectomy. Risks and benefits of the procedure, not limited to but including bleeding, infection, hernia formation, damage to surrounding structures, and need for further surgery were discussed in detail with the patient. Informed consent was obtained and procedure was planned. PROCEDURE: The patient was brought back to operating room 7. After sufficient sedation, the abdomen was sterilely prepped and draped. Next, time out was done to confirm proper patient and proper procedure. Following that, an 8-mm incision was made in left upper quadrant, Veress needle was inserted, and the abdomen was insufflated to 15 mmHg. The Veress needle was then removed and an 8-mm Optiview port was used to gain access to the abdomen. Once the abdomen was entered, three more ports were placed across the right upper quadrant. Next, the fundus of the gallbladder was elevated up towards the right shoulder. Cystic duct and cystic artery were carefully dissected free using a combination of blunt and sharp dissection. Once they were both cut, the gallbladder was dissected free from the gallbladder fossa, placed inside a 5-mm EndoCatch bag, and brought out through the right lateral port site. Once the gallbladder was removed, the abdomen was desufflated. The skin incisions were closed with 4-0 Vicryl subcuticular sutures. The abdomen was cleaned and dried. Steri-Strips, 4 x 4, and tape were applied.
== END 2021-06-12 10:50 | disposition home or self-care (01) ==
LOC: M SDC 06:06
PROVIDERS: ATTEND Surgery
DX: K80.10 Calculus of gallbladder with chronic cholecystitis without obstruction (principal); I10 Essential (primary) hypertension; I25.10 Atherosclerotic heart disease of native coronary artery without angina pectoris; I25.2 Old myocardial infarction; Z98.61 Coronary angioplasty status; E78.5 Hyperlipidemia, unspecified; E11.9 Type 2 diabetes mellitus without complications; F31.9 Bipolar disorder, unspecified; F41.9 Anxiety disorder, unspecified; F32.9 Major depressive disorder, single episode, unspecified; Z79.899 Other long term (current) drug therapy; Z79.84 Long term (current) use of oral hypoglycemic drugs; Z88.8 Allergy status to other drugs, medicaments and biological substances; Z88.7 Allergy status to serum and vaccine
CPT/HCPCS: 47562; 88304; J0131; J1100; J2370; J2405; J3010; S2900

== ENCOUNTER → 2021-08-28 | Outpatient (CLI) | payer MEDICARE, MEDICAID ==
[~2021-08-28] MED LIST changes: -CLOB10TA PO; +CLOB10TA15 PO; -FLUC150T; +FLUC150T9; +FLUO-96 PO; -FLUO20CA20 PO; -LISI20TA20 PO; +LISI20TA37 PO; +LOSA25TA13 PO; -LOSA25TA14 PO; +LOSA50TA28 PO; -LOSA50TA88 PO; -LR 1,000 ML IV ONE; +TIZA10TA; +TIZA10TA PO; -TIZA4TAB4; -TIZA4TAB4 PO
[2021-08-28 14:39] LABS: PLATELET COUNT, AUTOMATED 212 10^3/uL (150-450)
[2021-08-28 15:05] LABS: ERYTHROCYTE SEDIMENTATION RATE 29 mm/hr (0-30)
== END ==
LOC: M LAB 14:00
PROVIDERS: ATTEND Ophthalmology
DX: M13.80 Other specified arthritis, unspecified site (principal)

== ENCOUNTER 2022-03-23 15:36 | Emergency (ER) | payer MEDICARE, MEDICAID ==
[~2022-03-23] VITALS: Ht 160 cm; Wt 63.6 kg
[~2022-03-23 15:36] MED LIST changes: -DICL1GEL TOP; +DICL3GEL2 TOP; +EXCETAB32 PO; -EXCETAB33 PO; -TIZA10TA; -ZONI100C17 PO; +ZONI100C67 PO
[2022-03-23 18:41] VITALS: BP 157/84
[2022-03-23] MEDS ORDERED: NS 1,000 ML IV ONE (19:40)
[2022-03-23 23:33] LABS: BASO % 0.4 % (0.0-1.0); EOS # 0.2 10^3/uL (0.0-0.5); HEMATOCRIT 36.4 % (36.0-47.0); HEMOGLOBIN 12.1 g/dl (12.0-15.5); LYMPH # 2.8 10^3/uL (1.5-5.0); LYMPH % 34.2 % (24.0-44.0); MEAN CORPUSCULAR HEMOGLOBIN 29.6 pg (27.0-33.0); MEAN CORPUSCULAR HGB CONC 33.2 g/dl (32.0-36.5); MONO # 0.5 10^3/uL (0.0-0.8); MONO % 5.8 % (2.0-8.0); NEUTROPHILS # 4.6 10^3/uL (1.5-8.5); NEUTROPHILS % 57.4 % (36.0-66.0); PLATELET COUNT, AUTOMATED 205 10^3/uL (150-450); RED BLOOD COUNT 4.09 10^6/uL (4.00-5.40); WHITE BLOOD COUNT 8.1 10^3/uL (4.0-10.0)
[2022-03-23] MEDS ORDERED: cefTRIAXone SOD 1 GM in D5W MINI-BAG PLUS 50 ML IV ONE (23:40)
[2022-03-24 01:06] LABS: ALBUMIN 2.9 GM/DL (3.2-5.2); ALT/SGPT 16 U/L (12-78); BILIRUBIN,DIRECT 0.1 MG/DL (0.0-0.2); BILIRUBIN,TOTAL 0.6 MG/DL (0.2-1.0); BLOOD UREA NITROGEN 22 MG/DL (7-18); CALCIUM LEVEL 8.4 MG/DL (8.8-10.2); CARBON DIOXIDE LEVEL 23 MEQ/L (21-32); CHLORIDE LEVEL 118 MEQ/L (98-107); CREATININE FOR GFR 0.71 MG/DL (0.55-1.30); GLOMERULAR FILTRATION RATE > 60.0 (>45); GLUCOSE, FASTING 81 MG/DL (70-100); POTASSIUM SERUM 2.7 MEQ/L (3.5-5.1); SODIUM LEVEL 145 MEQ/L (136-145); TOTAL PROTEIN 5.6 GM/DL (6.4-8.2)
[2022-03-24] MEDS ORDERED: KCL 10MEQ/100ML SWI (KRUN) 10 MEQ in IV 1 EA IV ONE (01:10)
[2022-03-24 01:18] LABS: MAGNESIUM LEVEL 1.8 MG/DL (1.8-2.4)
[2022-03-24] MEDS ORDERED: GLUCOSE 4GM CHEW TABLET PO PRN (02:00)
[2022-03-24] MEDS ORDERED: DEXTROSE 50% 50 ML SYRINGE IV PRN (02:00)
[2022-03-24] MEDS ORDERED: POTASSIUM CHLORIDE 10MEQ SR TABLET PO ONE (02:00)
[2022-03-24] MEDS ORDERED: GLUCAGON INJ 1MG VIAL SC PRN (02:00)
[2022-03-24] MEDS ORDERED: ACETAMINOPHEN TAB 650MG DOSE (2X325MG) PO PRN (02:00)
[2022-03-24] MEDS ORDERED: NS 1,000 ML IV SCH (02:50)
[2022-03-24] MEDS ORDERED: INSULIN LISPRO (NovoLOG) PER UNIT SC SCH ×2 (07:30→21:00)
[2022-03-24] MEDS ORDERED: CARV6.25 PO (18:15)
[2022-03-24] MEDS ORDERED: LOSA25TA13 PO (18:15)
[2022-03-24] MEDS ORDERED: CHLO125TA PO (18:15)
[2022-03-24] MEDS ORDERED: RISP-8 PO (18:15)
[2022-03-24] MEDS ORDERED: PATIENT COMMENT (20:41)
[2022-03-25] MEDS ORDERED: CLON0.5T2 PO (10:42)
[2022-03-25] MEDS ORDERED: OMEP-173 PO (10:42)
[2022-03-25] MEDS ORDERED: ASPI81TA26 PO (13:27)
== END 2022-03-24 03:04 | disposition home or self-care (01) ==
LOC: M ED 15:36 → UNDOADMOB 15:37 → M ED INP 15:37 → M ED 03-24 03:04
DX: E87.6 Hypokalemia (principal); I45.2 Bifascicular block; E11.9 Type 2 diabetes mellitus without complications; I10 Essential (primary) hypertension; J44.9 Chronic obstructive pulmonary disease, unspecified; I25.2 Old myocardial infarction; I25.10 Atherosclerotic heart disease of native coronary artery without angina pectoris; G43.909 Migraine, unspecified, not intractable, without status migrainosus; F17.200 Nicotine dependence, unspecified, uncomplicated; Z79.84 Long term (current) use of oral hypoglycemic drugs; Z79.899 Other long term (current) drug therapy; Z88.7 Allergy status to serum and vaccine

== ENCOUNTER 2022-03-24 15:02 | Inpatient (IN) | payer MEDICAID, MEDICARE ==
[~2022-03-24] VITALS: Ht 160 cm; Wt 69.4 kg
[2022-03-24 17:23] LABS: AMPHETAMINES LEVEL URINE NEGATIVE (NEGATIVE); BARBITURATES URINE NEGATIVE (NEGATIVE); BENZODIAZEPINES URINE NEGATIVE (NEGATIVE); CANNABINOIDS URINE POSITIVE (NEGATIVE); COCAINE METABOLITE URINE NEGATIVE (NEGATIVE); METHADONE URINE NEGATIVE (NEGATIVE); OPIATES URINE NEGATIVE (NEGATIVE); PHENCYCLIDINE URINE NEGATIVE (NEGATIVE)
[2022-03-24 17:36] LABS: RSV AMPLIFICATION NEGATIVE (NEGATIVE)
[2022-03-24 18:05] LABS: HEMATOCRIT 37.6 % (36.0-47.0); HEMOGLOBIN 12.6 g/dl (12.0-15.5); MEAN CORPUSCULAR HEMOGLOBIN 30.4 pg (27.0-33.0); MEAN CORPUSCULAR HGB CONC 33.5 g/dl (32.0-36.5); MEAN CORPUSCULAR VOLUME 90.6 fl (80.0-96.0); PLATELET COUNT, AUTOMATED 223 10^3/uL (150-450); RED BLOOD COUNT 4.15 10^6/uL (4.00-5.40); WHITE BLOOD COUNT 9.4 10^3/uL (4.0-10.0)
[2022-03-24] MEDS ORDERED: CARV6.25 PO (18:15)
[2022-03-24] MEDS ORDERED: CHLO125TA PO (18:15)
[2022-03-24] MEDS ORDERED: LOSA25TA13 PO (18:15)
[2022-03-24] MEDS ORDERED: RISP-8 PO (18:15)
[2022-03-24 18:56] LABS: ACETAMINOPHEN LEVEL < 2.0 UG/ML (10.0-30.0); ALBUMIN 3.3 GM/DL (3.2-5.2); ALT/SGPT 13 U/L (12-78); BILIRUBIN,DIRECT < 0.1 MG/DL (0.0-0.2); BILIRUBIN,TOTAL 0.3 MG/DL (0.2-1.0); BLOOD UREA NITROGEN 22 MG/DL (7-18); CALCIUM LEVEL 9.8 MG/DL (8.8-10.2); CARBON DIOXIDE LEVEL 21 MEQ/L (21-32); CHLORIDE LEVEL 115 MEQ/L (98-107); ETHYL ALCOHOL (ETHANOL) < 0.003 % (0.000-0.010); GLUCOSE, FASTING 77 MG/DL (70-100); POTASSIUM SERUM 3.6 MEQ/L (3.5-5.1); SALICYLATE LEVEL 4.3 MG/DL (5.0-30.0); SODIUM LEVEL 145 MEQ/L (136-145); TOTAL PROTEIN 6.4 GM/DL (6.4-8.2)
[2022-03-24] MEDS ORDERED: PATIENT COMMENT (20:41)
[2022-03-24] MEDS ORDERED: MOM 30ML SUSPENSION UDC PO PRN (23:10)
[2022-03-25 01:00] VITALS: BP 168/80
[2022-03-25] MEDS: ACETAMINOPHEN TAB 650MG DOSE (2X325MG) PO PRN ×2 (01:17→22:06)
[2022-03-25] MEDS ORDERED: IBUPROFEN 400MG TAB PO PRN (01:45)
[2022-03-25] MEDS ORDERED: DIVALPROEX 500 MG TAB PO SCH (09:00)
[2022-03-25] MEDS ORDERED: risperiDONE 1 MG TAB PO SCH (09:00)
[2022-03-25] MEDS ORDERED: OMEP-173 PO (10:42)
[2022-03-25] MEDS ORDERED: CLON0.5T2 PO (10:42)
[2022-03-25] MEDS ORDERED: HOME MED LIST COMPLETE! XX SCH (10:45)
[2022-03-25] MEDS ORDERED: clonazePAM 0.5 MG TAB PO PRN (12:20)
[2022-03-25 12:30] VITALS: BP 146/88
[2022-03-25] MEDS ORDERED: ASPI81TA26 PO (13:27)
[2022-03-25] MEDS: ASPIRIN 81MG ENTERIC TABLET PO SCH (14:51)
[2022-03-25] MEDS: LURASIDONE 20 MG TAB (LATUDA) PO SCH (14:51)
[2022-03-25] MEDS: CARVedilol 6.25 MG TAB PO SCH ×2 (14:52→20:28)
[2022-03-25] MEDS: tiZANidine 4 MG TAB PO PRN ×2 (14:52→20:28)
[2022-03-25] MEDS: LOSARTAN 25 MG TAB PO SCH (14:52)
[2022-03-25] MEDS: NICOTINE 21MG/24HR 1 EA TRANSDERMAL TD SCH (14:53)
[2022-03-25] MEDS: TOPIRAMATE (TopAMAX) 100 MG TAB PO SCH ×2 (14:53→20:28)
[2022-03-25] MEDS: OMEPRAZOLE 20MG CAP PO SCH (14:59)
[2022-03-25 16:34] VITALS: BP 170/90
[2022-03-25] MEDS ORDERED: **hydrALAZINE** 10 MG TAB PO ONE (16:35)
[2022-03-25 18:40] VITALS: BP 172/88
[2022-03-25] MEDS: traZODone 50 MG TAB PO PRN (20:28)
[2022-03-25] MEDS: CHLORTHALIDONE 25 MG TAB PO SCH (20:28)
[2022-03-25 20:58] LABS: CALCIUM LEVEL 9.9 MG/DL (8.8-10.2); CREATININE FOR GFR 1.05 MG/DL (0.55-1.30); GLOMERULAR FILTRATION RATE 56.7 (>45); POTASSIUM SERUM 3.5 MEQ/L (3.5-5.1)
[2022-03-25 21:01] LABS: CK-MB VALUE MASS 1.9 NG/ML (<3.6); MB/CK RELATIVE INDEX 1.47 (< OR =4)
[2022-03-25 22:24] VITALS: BP 145/76
[2022-03-26 06:30] VITALS: BP 142/89
[2022-03-26 06:57] LABS: CHOLESTEROL RISK RATIO 6.161 (<5)
[2022-03-26] MEDS ORDERED: amLODIPine 5 MG TAB PO SCH (09:00)
[2022-03-26] MEDS: CARVedilol 6.25 MG TAB PO SCH ×2 (09:05→21:28)
[2022-03-26] MEDS: LURASIDONE 20 MG TAB (LATUDA) PO SCH (09:05)
[2022-03-26] MEDS: NICOTINE 21MG/24HR 1 EA TRANSDERMAL TD SCH (09:05)
[2022-03-26] MEDS: LOSARTAN 25 MG TAB PO SCH (09:05)
[2022-03-26] MEDS: TOPIRAMATE (TopAMAX) 100 MG TAB PO SCH ×2 (09:06→21:29)
[2022-03-26] MEDS: OMEPRAZOLE 20MG CAP PO SCH (09:06)
[2022-03-26] MEDS: ASPIRIN 81MG ENTERIC TABLET PO SCH (09:06)
[2022-03-26] MEDS: OMEGA-3 1000MG CAPSULE PO SCH ×2 (10:28→21:28)
[2022-03-26] MEDS: ATORVASTATIN 10 MG TAB PO SCH (10:28)
[2022-03-26 17:44] VITALS: BP 147/88
[2022-03-26] MEDS: CHLORTHALIDONE 25 MG TAB PO SCH (21:28)
[2022-03-26] MEDS: OLANZapine ORAL DISINTEGRATING TAB 5MG PO PRN (21:29)
[2022-03-26] MEDS: traZODone 50 MG TAB PO PRN (21:29)
[2022-03-26] MEDS: ACETAMINOPHEN TAB 650MG DOSE (2X325MG) PO PRN (21:31)
[2022-03-27] MEDS: MAALOX 30 ML SUSP *UDC PO PRN (03:33)
[2022-03-27 06:54] VITALS: BP 132/77
[2022-03-27] MEDS: NICOTINE 21MG/24HR 1 EA TRANSDERMAL TD SCH (09:00)
[2022-03-27] MEDS: CARVedilol 6.25 MG TAB PO SCH ×2 (09:24→21:02)
[2022-03-27] MEDS: TOPIRAMATE (TopAMAX) 100 MG TAB PO SCH ×2 (09:26→21:01)
[2022-03-27] MEDS: ASPIRIN 81MG ENTERIC TABLET PO SCH (09:26)
[2022-03-27] MEDS: OMEGA-3 1000MG CAPSULE PO SCH ×2 (09:26→21:02)
[2022-03-27] MEDS: OMEPRAZOLE 20MG CAP PO SCH (09:27)
[2022-03-27] MEDS: ATORVASTATIN 10 MG TAB PO SCH (09:28)
[2022-03-27] MEDS: LURASIDONE 20 MG TAB (LATUDA) PO SCH (09:28)
[2022-03-27 17:34] VITALS: BP 147/70
[2022-03-27] MEDS: traZODone 50 MG TAB PO PRN (21:01)
[2022-03-27] MEDS: CHLORTHALIDONE 25 MG TAB PO SCH (21:02)
[2022-03-28 06:43] VITALS: BP 125/83
[2022-03-28] MEDS: OMEGA-3 1000MG CAPSULE PO SCH ×2 (08:27→21:15)
[2022-03-28] MEDS: OMEPRAZOLE 20MG CAP PO SCH (08:27)
[2022-03-28] MEDS: LURASIDONE 20 MG TAB (LATUDA) PO SCH (08:27)
[2022-03-28] MEDS: NICOTINE 21MG/24HR 1 EA TRANSDERMAL TD SCH (08:27)
[2022-03-28] MEDS: CARVedilol 6.25 MG TAB PO SCH ×2 (08:27→21:15)
[2022-03-28] MEDS: ATORVASTATIN 10 MG TAB PO SCH (08:27)
[2022-03-28] MEDS: ASPIRIN 81MG ENTERIC TABLET PO SCH (08:27)
[2022-03-28] MEDS: TOPIRAMATE (TopAMAX) 100 MG TAB PO SCH ×2 (08:28→21:15)
[2022-03-28 18:32] VITALS: BP 133/74
[2022-03-28] MEDS: CHLORTHALIDONE 25 MG TAB PO SCH (21:15)
[2022-03-28] MEDS: traZODone 50 MG TAB PO PRN (21:18)
[2022-03-29] MEDS: OLANZapine ORAL DISINTEGRATING TAB 5MG PO PRN ×2 (03:23→11:59)
[2022-03-29 07:19] VITALS: BP 133/62
[2022-03-29] MEDS: LURASIDONE 20 MG TAB (LATUDA) PO SCH (09:02)
[2022-03-29] MEDS: NICOTINE 21MG/24HR 1 EA TRANSDERMAL TD SCH (09:02)
[2022-03-29] MEDS: CARVedilol 6.25 MG TAB PO SCH ×2 (09:02→20:17)
[2022-03-29] MEDS: OMEGA-3 1000MG CAPSULE PO SCH ×2 (09:02→20:16)
[2022-03-29] MEDS: ASPIRIN 81MG ENTERIC TABLET PO SCH (09:03)
[2022-03-29] MEDS: ATORVASTATIN 10 MG TAB PO SCH (09:03)
[2022-03-29] MEDS: OMEPRAZOLE 20MG CAP PO SCH (09:03)
[2022-03-29] MEDS: TOPIRAMATE (TopAMAX) 100 MG TAB PO SCH ×2 (09:03→20:16)
[2022-03-29 18:21] VITALS: BP 129/74
[2022-03-29] MEDS: tiZANidine 4 MG TAB PO PRN (20:16)
[2022-03-29] MEDS: CHLORTHALIDONE 25 MG TAB PO SCH (20:16)
[2022-03-29] MEDS: ACETAMINOPHEN TAB 650MG DOSE (2X325MG) PO PRN (20:18)
[2022-03-30] MEDS: ACETAMINOPHEN TAB 650MG DOSE (2X325MG) PO PRN (03:53)
[2022-03-30 06:58] VITALS: BP 122/61
[2022-03-30] MEDS: ATORVASTATIN 10 MG TAB PO SCH (08:53)
[2022-03-30] MEDS: LURASIDONE HCL 40MG TAB (LATUDA) PO SCH (08:54)
[2022-03-30] MEDS: CARVedilol 6.25 MG TAB PO SCH ×2 (08:54→20:48)
[2022-03-30] MEDS: TOPIRAMATE (TopAMAX) 100 MG TAB PO SCH ×2 (08:54→20:47)
[2022-03-30] MEDS: ASPIRIN 81MG ENTERIC TABLET PO SCH (08:54)
[2022-03-30] MEDS: OMEPRAZOLE 20MG CAP PO SCH (08:54)
[2022-03-30] MEDS: OMEGA-3 1000MG CAPSULE PO SCH ×2 (08:54→20:48)
[2022-03-30] MEDS: NICOTINE 21MG/24HR 1 EA TRANSDERMAL TD SCH (08:57)
[2022-03-30] MEDS: buPROPion **XL** TABLET 150MG (WELLBUTRIN XL) PO SCH (12:24)
[2022-03-30 18:00] VITALS: BP 142/84
[2022-03-30] MEDS: traZODone 50 MG TAB PO PRN (20:47)
[2022-03-30] MEDS: CHLORTHALIDONE 25 MG TAB PO SCH (20:48)
[2022-03-31] MEDS: OLANZapine ORAL DISINTEGRATING TAB 5MG PO PRN (03:49)
[2022-03-31 06:43] VITALS: BP 124/73
[2022-03-31] MEDS: LURASIDONE HCL 40MG TAB (LATUDA) PO SCH (08:35)
[2022-03-31] MEDS ORDERED: tiZANidine 4 MG TAB PO PRN (09:10)
[2022-03-31] MEDS ORDERED: PILL CUTTER 1 EACH XX PRN (09:20)
[2022-03-31] MEDS: CARVedilol 6.25 MG TAB PO SCH ×2 (09:55→20:30)
[2022-03-31] MEDS: OMEPRAZOLE 20MG CAP PO SCH (09:55)
[2022-03-31] MEDS: OMEGA-3 1000MG CAPSULE PO SCH ×2 (09:55→20:32)
[2022-03-31] MEDS: ASPIRIN 81MG ENTERIC TABLET PO SCH (09:55)
[2022-03-31] MEDS: ATORVASTATIN 10 MG TAB PO SCH (09:56)
[2022-03-31] MEDS: TOPIRAMATE (TopAMAX) 25 MG TAB PO SCH ×2 (09:56→20:30)
[2022-03-31] MEDS: buPROPion **XL** TABLET 150MG (WELLBUTRIN XL) PO SCH (09:56)
[2022-03-31] MEDS: NICOTINE 21MG/24HR 1 EA TRANSDERMAL TD SCH (09:56)
[2022-03-31] MEDS: LIDOCAINE 5% (LIDODERM) PATCH TD SCH (12:46)
[2022-03-31 18:00] VITALS: BP 132/76
[2022-03-31] MEDS: CHLORTHALIDONE 25 MG TAB PO SCH (20:30)
[2022-03-31] MEDS: traZODone 50 MG TAB PO PRN (20:30)
[2022-03-31] MEDS: ACETAMINOPHEN TAB 650MG DOSE (2X325MG) PO PRN (20:31)
[2022-03-31] MEDS: **NOTE PATIENT COMMENT** MISC XX SCH (20:33)
[2022-04-01 07:02] VITALS: BP 124/74
[2022-04-01] MEDS: CARVedilol 6.25 MG TAB PO SCH ×2 (08:27→21:00)
[2022-04-01] MEDS: OMEGA-3 1000MG CAPSULE PO SCH ×2 (08:27→21:00)
[2022-04-01] MEDS: OMEPRAZOLE 20MG CAP PO SCH (08:27)
[2022-04-01] MEDS: ASPIRIN 81MG ENTERIC TABLET PO SCH (08:27)
[2022-04-01] MEDS: buPROPion **XL** TABLET 150MG (WELLBUTRIN XL) PO SCH (08:27)
[2022-04-01] MEDS: ATORVASTATIN 10 MG TAB PO SCH (08:27)
[2022-04-01] MEDS: TOPIRAMATE (TopAMAX) 25 MG TAB PO SCH ×2 (08:28→21:00)
[2022-04-01] MEDS: NICOTINE 21MG/24HR 1 EA TRANSDERMAL TD SCH (09:40)
[2022-04-01] MEDS: LIDOCAINE 5% (LIDODERM) PATCH TD SCH (09:41)
[2022-04-01] MEDS: hydrOXYzine 50 MG TAB PO PRN ×2 (12:32→19:01)
[2022-04-01 18:44] VITALS: BP 136/88
[2022-04-01] MEDS ORDERED: LURASIDONE HCL 40MG TAB (LATUDA) PO SCH (21:00)
[2022-04-01] MEDS: CHLORTHALIDONE 25 MG TAB PO SCH (21:00)
[2022-04-01] MEDS: traZODone 50 MG TAB PO PRN (21:00)
[2022-04-01] MEDS: **NOTE PATIENT COMMENT** MISC XX SCH (21:03)
[2022-04-02] MEDS: hydrOXYzine 50 MG TAB PO PRN (03:09)
[2022-04-02 06:19] VITALS: BP 137/63
[2022-04-02] MEDS: OMEGA-3 1000MG CAPSULE PO SCH ×2 (09:00→22:15)
[2022-04-02] MEDS: buPROPion **XL** TABLET 150MG (WELLBUTRIN XL) PO SCH (09:43)
[2022-04-02] MEDS: OMEPRAZOLE 20MG CAP PO SCH (09:44)
[2022-04-02] MEDS: TOPIRAMATE (TopAMAX) 25 MG TAB PO SCH ×2 (09:44→22:15)
[2022-04-02] MEDS: ASPIRIN 81MG ENTERIC TABLET PO SCH (09:44)
[2022-04-02] MEDS: CARVedilol 6.25 MG TAB PO SCH ×2 (09:44→22:15)
[2022-04-02] MEDS: ATORVASTATIN 10 MG TAB PO SCH (09:44)
[2022-04-02] MEDS: NICOTINE 21MG/24HR 1 EA TRANSDERMAL TD SCH (13:43)
[2022-04-02] MEDS: LIDOCAINE 5% (LIDODERM) PATCH TD SCH (13:43)
[2022-04-02 18:48] VITALS: BP 111/56
[2022-04-02] MEDS: **NOTE PATIENT COMMENT** MISC XX SCH (21:00)
[2022-04-02] MEDS: LURASIDONE 20 MG TAB (LATUDA) PO SCH (22:15)
[2022-04-02] MEDS: CHLORTHALIDONE 25 MG TAB PO SCH (22:15)
[2022-04-03 07:07] VITALS: BP 132/59
[2022-04-03] MEDS: LIDOCAINE 5% (LIDODERM) PATCH TD SCH (09:00)
[2022-04-03] MEDS: OMEGA-3 1000MG CAPSULE PO SCH ×2 (09:00→21:37)
[2022-04-03] MEDS: NICOTINE 21MG/24HR 1 EA TRANSDERMAL TD SCH (09:00)
[2022-04-03] MEDS: CARVedilol 6.25 MG TAB PO SCH ×2 (09:48→21:38)
[2022-04-03] MEDS: ATORVASTATIN 10 MG TAB PO SCH (09:49)
[2022-04-03] MEDS: ASPIRIN 81MG ENTERIC TABLET PO SCH (09:49)
[2022-04-03] MEDS: OMEPRAZOLE 20MG CAP PO SCH (09:49)
[2022-04-03] MEDS: TOPIRAMATE (TopAMAX) 25 MG TAB PO SCH ×2 (09:49→21:38)
[2022-04-03] MEDS: buPROPion **XL** TABLET 150MG (WELLBUTRIN XL) PO SCH (09:49)
[2022-04-03 17:54] VITALS: BP 133/63
[2022-04-03] MEDS: **NOTE PATIENT COMMENT** MISC XX SCH (21:00)
[2022-04-03] MEDS: LURASIDONE 20 MG TAB (LATUDA) PO SCH (21:37)
[2022-04-03] MEDS: CHLORTHALIDONE 25 MG TAB PO SCH (21:37)
[2022-04-04] MEDS: buPROPion **XL** TABLET 150MG (WELLBUTRIN XL) PO SCH (08:24)
[2022-04-04] MEDS: OMEPRAZOLE 20MG CAP PO SCH (08:24)
[2022-04-04] MEDS: OMEGA-3 1000MG CAPSULE PO SCH ×2 (08:24→20:30)
[2022-04-04] MEDS: TOPIRAMATE (TopAMAX) 25 MG TAB PO SCH ×2 (08:25→20:30)
[2022-04-04] MEDS: ASPIRIN 81MG ENTERIC TABLET PO SCH (08:25)
[2022-04-04] MEDS: ATORVASTATIN 10 MG TAB PO SCH (08:25)
[2022-04-04] MEDS: NICOTINE 21MG/24HR 1 EA TRANSDERMAL TD SCH (08:26)
[2022-04-04] MEDS: LIDOCAINE 5% (LIDODERM) PATCH TD SCH (08:26)
[2022-04-04] MEDS: CARVedilol 6.25 MG TAB PO SCH ×2 (10:30→20:30)
[2022-04-04 18:00] VITALS: BP 120/73
[2022-04-04] MEDS: CHLORTHALIDONE 25 MG TAB PO SCH (20:29)
[2022-04-04] MEDS: traZODone 50 MG TAB PO PRN (20:29)
[2022-04-04] MEDS: LURASIDONE 20 MG TAB (LATUDA) PO SCH (20:30)
[2022-04-04] MEDS: **NOTE PATIENT COMMENT** MISC XX SCH (20:31)
[2022-04-04] MEDS: IBUPROFEN 400MG TAB PO PRN (21:28)
[2022-04-05 06:48] VITALS: BP 120/68
[2022-04-05] MEDS: ASPIRIN 81MG ENTERIC TABLET PO SCH (08:09)
[2022-04-05] MEDS: TOPIRAMATE (TopAMAX) 25 MG TAB PO SCH ×2 (08:09→21:00)
[2022-04-05] MEDS: OMEGA-3 1000MG CAPSULE PO SCH ×2 (08:10→21:00)
[2022-04-05] MEDS: OMEPRAZOLE 20MG CAP PO SCH (08:10)
[2022-04-05] MEDS: CARVedilol 6.25 MG TAB PO SCH ×2 (08:10→21:00)
[2022-04-05] MEDS: buPROPion **XL** TABLET 150MG (WELLBUTRIN XL) PO SCH (08:10)
[2022-04-05] MEDS: ATORVASTATIN 10 MG TAB PO SCH (08:15)
[2022-04-05] MEDS: NICOTINE 21MG/24HR 1 EA TRANSDERMAL TD SCH (09:00)
[2022-04-05] MEDS: LIDOCAINE 5% (LIDODERM) PATCH TD SCH (09:00)
[2022-04-05] MEDS ORDERED: BENZTROPINE 0.5 MG TAB PO PRN (10:00)
[2022-04-05 18:00] VITALS: BP 140/82
[2022-04-05] MEDS: traZODone 50 MG TAB PO PRN (20:59)
[2022-04-05] MEDS: CHLORTHALIDONE 25 MG TAB PO SCH (21:00)
[2022-04-05] MEDS: **NOTE PATIENT COMMENT** MISC XX SCH (21:00)
[2022-04-06] MEDS: ACETAMINOPHEN TAB 650MG DOSE (2X325MG) PO PRN (02:48)
[2022-04-06 06:21] VITALS: BP 119/65
[2022-04-06] MEDS: NICOTINE 21MG/24HR 1 EA TRANSDERMAL TD SCH (09:00)
[2022-04-06] MEDS: ATORVASTATIN 10 MG TAB PO SCH (09:52)
[2022-04-06] MEDS: buPROPion **XL** TABLET 150MG (WELLBUTRIN XL) PO SCH (09:52)
[2022-04-06] MEDS: OMEGA-3 1000MG CAPSULE PO SCH ×2 (09:52→21:47)
[2022-04-06] MEDS: CARVedilol 6.25 MG TAB PO SCH ×2 (09:52→21:47)
[2022-04-06] MEDS: ASPIRIN 81MG ENTERIC TABLET PO SCH (09:52)
[2022-04-06] MEDS: OMEPRAZOLE 20MG CAP PO SCH (09:52)
[2022-04-06] MEDS: TOPIRAMATE (TopAMAX) 25 MG TAB PO SCH ×2 (09:53→21:47)
[2022-04-06] MEDS: MULTIVITAMINS/MINERALS THERAP 1 TAB PO SCH (09:53)
[2022-04-06] MEDS: LIDOCAINE 5% (LIDODERM) PATCH TD SCH (09:55)
[2022-04-06] MEDS: **NOTE PATIENT COMMENT** MISC XX SCH (21:00)
[2022-04-06] MEDS ORDERED: ARIPiprazole 10 MG TAB PO SCH (21:00)
[2022-04-06] MEDS: CHLORTHALIDONE 25 MG TAB PO SCH (21:47)
[2022-04-06] MEDS: traZODone 50 MG TAB PO PRN (21:47)
[2022-04-07] MEDS: IBUPROFEN 400MG TAB PO PRN (05:46)
[2022-04-07 06:21] VITALS: BP 120/78
[2022-04-07] MEDS: CARVedilol 6.25 MG TAB PO SCH ×2 (09:00→21:03)
[2022-04-07] MEDS: LIDOCAINE 5% (LIDODERM) PATCH TD SCH (09:43)
[2022-04-07] MEDS: NICOTINE 21MG/24HR 1 EA TRANSDERMAL TD SCH (09:43)
[2022-04-07] MEDS: OMEGA-3 1000MG CAPSULE PO SCH ×2 (09:44→21:02)
[2022-04-07] MEDS: TOPIRAMATE (TopAMAX) 25 MG TAB PO SCH ×2 (09:44→21:02)
[2022-04-07] MEDS: OMEPRAZOLE 20MG CAP PO SCH (09:44)
[2022-04-07] MEDS: ATORVASTATIN 10 MG TAB PO SCH (09:44)
[2022-04-07] MEDS: ASPIRIN 81MG ENTERIC TABLET PO SCH (09:44)
[2022-04-07] MEDS: buPROPion **XL** TABLET 150MG (WELLBUTRIN XL) PO SCH (09:44)
[2022-04-07] MEDS: MULTIVITAMINS/MINERALS THERAP 1 TAB PO SCH (09:45)
[2022-04-07] MEDS ORDERED: MIRALAX *UNIT DOSE* 17GM PACKET PO PRN (12:40)
[2022-04-07 18:29] VITALS: BP 101/53
[2022-04-07] MEDS: CHLORTHALIDONE 25 MG TAB PO SCH (21:02)
[2022-04-07] MEDS: **NOTE PATIENT COMMENT** MISC XX SCH (21:03)
[2022-04-08 07:05] VITALS: BP 123/71
[2022-04-08] MEDS: LIDOCAINE 5% (LIDODERM) PATCH TD SCH ×2 (09:57→10:56)
[2022-04-08] MEDS: OMEPRAZOLE 20MG CAP PO SCH (09:57)
[2022-04-08] MEDS: ATORVASTATIN 10 MG TAB PO SCH (09:57)
[2022-04-08] MEDS: ASPIRIN 81MG ENTERIC TABLET PO SCH (09:57)
[2022-04-08] MEDS: TOPIRAMATE (TopAMAX) 25 MG TAB PO SCH ×2 (09:57→20:39)
[2022-04-08] MEDS: NICOTINE 21MG/24HR 1 EA TRANSDERMAL TD SCH ×2 (09:57→10:56)
[2022-04-08] MEDS: MULTIVITAMINS/MINERALS THERAP 1 TAB PO SCH (09:58)
[2022-04-08] MEDS: CARVedilol 6.25 MG TAB PO SCH ×2 (09:58→20:39)
[2022-04-08] MEDS: OMEGA-3 1000MG CAPSULE PO SCH ×2 (09:58→20:39)
[2022-04-08] MEDS: buPROPion **XL** TABLET 150MG (WELLBUTRIN XL) PO SCH (09:58)
[2022-04-08 18:35] VITALS: BP 123/89
[2022-04-08] MEDS: **NOTE PATIENT COMMENT** MISC XX SCH (20:35)
[2022-04-08] MEDS: ARIPiprazole 10 MG TAB PO SCH (20:38)
[2022-04-08] MEDS: CHLORTHALIDONE 25 MG TAB PO SCH (20:39)
[2022-04-08] MEDS: traZODone 50 MG TAB PO PRN (20:43)
[2022-04-09 06:59] VITALS: BP 144/66
[2022-04-09] MEDS: CARVedilol 6.25 MG TAB PO SCH ×2 (08:51→21:23)
[2022-04-09] MEDS: ATORVASTATIN 10 MG TAB PO SCH (08:51)
[2022-04-09] MEDS: MULTIVITAMINS/MINERALS THERAP 1 TAB PO SCH (08:52)
[2022-04-09] MEDS: ASPIRIN 81MG ENTERIC TABLET PO SCH (08:52)
[2022-04-09] MEDS: OMEPRAZOLE 20MG CAP PO SCH (08:53)
[2022-04-09] MEDS: buPROPion **XL** TABLET 150MG (WELLBUTRIN XL) PO SCH (08:53)
[2022-04-09] MEDS: OMEGA-3 1000MG CAPSULE PO SCH ×2 (08:53→21:20)
[2022-04-09] MEDS: TOPIRAMATE (TopAMAX) 25 MG TAB PO SCH ×2 (08:53→21:20)
[2022-04-09] MEDS: NICOTINE 21MG/24HR 1 EA TRANSDERMAL TD SCH (08:56)
[2022-04-09] MEDS: LIDOCAINE 5% (LIDODERM) PATCH TD SCH (08:56)
[2022-04-09 18:35] VITALS: BP 166/84
[2022-04-09] MEDS: **NOTE PATIENT COMMENT** MISC XX SCH (21:00)
[2022-04-09] MEDS: CHLORTHALIDONE 25 MG TAB PO SCH (21:20)
[2022-04-09] MEDS: ARIPiprazole 10 MG TAB PO SCH (21:20)
[2022-04-09] MEDS: traZODone 50 MG TAB PO PRN (21:20)
[2022-04-10 06:43] VITALS: BP 129/58
[2022-04-10] MEDS: CARVedilol 6.25 MG TAB PO SCH ×2 (08:51→21:46)
[2022-04-10] MEDS: OMEGA-3 1000MG CAPSULE PO SCH ×2 (08:51→21:45)
[2022-04-10] MEDS: ASPIRIN 81MG ENTERIC TABLET PO SCH (08:51)
[2022-04-10] MEDS: ATORVASTATIN 10 MG TAB PO SCH (08:51)
[2022-04-10] MEDS: MULTIVITAMINS/MINERALS THERAP 1 TAB PO SCH (08:52)
[2022-04-10] MEDS: buPROPion **XL** TABLET 150MG (WELLBUTRIN XL) PO SCH (08:52)
[2022-04-10] MEDS: TOPIRAMATE (TopAMAX) 25 MG TAB PO SCH ×2 (08:52→21:45)
[2022-04-10] MEDS: OMEPRAZOLE 20MG CAP PO SCH (08:52)
[2022-04-10] MEDS: NICOTINE 21MG/24HR 1 EA TRANSDERMAL TD SCH (08:56)
[2022-04-10] MEDS: LIDOCAINE 5% (LIDODERM) PATCH TD SCH (08:56)
[2022-04-10] MEDS ORDERED: ARIPiprazole MONOHYDRATE 400 MG INJ (ABILIFY)(FREE PSY INPT ONLY) IM ONE (09:00)
[2022-04-10 18:00] VITALS: BP 127/79
[2022-04-10] MEDS: **NOTE PATIENT COMMENT** MISC XX SCH (21:00)
[2022-04-10] MEDS: CHLORTHALIDONE 25 MG TAB PO SCH (21:46)
[2022-04-10] MEDS: traZODone 50 MG TAB PO PRN (21:46)
[2022-04-10] MEDS: ARIPiprazole 10 MG TAB PO SCH (21:46)
[2022-04-11 06:30] VITALS: BP 124/80
[2022-04-11] MEDS: LIDOCAINE 5% (LIDODERM) PATCH TD SCH (09:00)
[2022-04-11] MEDS: NICOTINE 21MG/24HR 1 EA TRANSDERMAL TD SCH (09:00)
[2022-04-11] MEDS: OMEGA-3 1000MG CAPSULE PO SCH ×2 (10:21→21:03)
[2022-04-11] MEDS: buPROPion **XL** TABLET 150MG (WELLBUTRIN XL) PO SCH (10:22)
[2022-04-11] MEDS: MULTIVITAMINS/MINERALS THERAP 1 TAB PO SCH (10:22)
[2022-04-11] MEDS: TOPIRAMATE (TopAMAX) 25 MG TAB PO SCH ×2 (10:22→21:03)
[2022-04-11] MEDS: ASPIRIN 81MG ENTERIC TABLET PO SCH (10:22)
[2022-04-11] MEDS: OMEPRAZOLE 20MG CAP PO SCH (10:22)
[2022-04-11] MEDS: CARVedilol 6.25 MG TAB PO SCH ×2 (10:23→21:04)
[2022-04-11] MEDS: ATORVASTATIN 10 MG TAB PO SCH (10:23)
[2022-04-11] MEDS: MAALOX 30 ML SUSP *UDC PO PRN (13:45)
[2022-04-11] MEDS: ACETAMINOPHEN TAB 650MG DOSE (2X325MG) PO PRN (13:46)
[2022-04-11 18:00] VITALS: BP 150/86
[2022-04-11] MEDS: **NOTE PATIENT COMMENT** MISC XX SCH (21:00)
[2022-04-11] MEDS: CHLORTHALIDONE 25 MG TAB PO SCH (21:03)
[2022-04-11] MEDS: ARIPiprazole 10 MG TAB PO SCH (21:04)
[2022-04-12] MEDS: IBUPROFEN 400MG TAB PO PRN ×2 (04:05→21:04)
[2022-04-12 06:58] VITALS: BP 94/61
[2022-04-12] MEDS: TOPIRAMATE (TopAMAX) 25 MG TAB PO SCH ×2 (08:56→20:10)
[2022-04-12] MEDS: OMEPRAZOLE 20MG CAP PO SCH (08:56)
[2022-04-12] MEDS: ASPIRIN 81MG ENTERIC TABLET PO SCH (08:56)
[2022-04-12] MEDS: buPROPion **XL** TABLET 150MG (WELLBUTRIN XL) PO SCH (08:56)
[2022-04-12] MEDS: MULTIVITAMINS/MINERALS THERAP 1 TAB PO SCH (08:56)
[2022-04-12] MEDS: ATORVASTATIN 10 MG TAB PO SCH (08:58)
[2022-04-12] MEDS: CARVedilol 6.25 MG TAB PO SCH ×2 (08:58→20:11)
[2022-04-12] MEDS: OMEGA-3 1000MG CAPSULE PO SCH ×2 (08:58→20:09)
[2022-04-12] MEDS: LIDOCAINE 5% (LIDODERM) PATCH TD SCH (09:00)
[2022-04-12] MEDS: NICOTINE 21MG/24HR 1 EA TRANSDERMAL TD SCH (09:00)
[2022-04-12] MEDS: ACETAMINOPHEN TAB 650MG DOSE (2X325MG) PO PRN (16:58)
[2022-04-12 18:00] VITALS: BP 159/89
[2022-04-12] MEDS: ARIPiprazole 10 MG TAB PO SCH (20:10)
[2022-04-12] MEDS: CHLORTHALIDONE 25 MG TAB PO SCH (20:10)
[2022-04-12] MEDS: **NOTE PATIENT COMMENT** MISC XX SCH (21:00)
[2022-04-13] MEDS: MAALOX 30 ML SUSP *UDC PO PRN (00:23)
[2022-04-13 06:28] VITALS: BP 124/70
[2022-04-13] MEDS: buPROPion **XL** TABLET 150MG (WELLBUTRIN XL) PO SCH (08:17)
[2022-04-13] MEDS: ASPIRIN 81MG ENTERIC TABLET PO SCH (08:17)
[2022-04-13] MEDS: TOPIRAMATE (TopAMAX) 25 MG TAB PO SCH ×2 (08:18→20:57)
[2022-04-13] MEDS: MULTIVITAMINS/MINERALS THERAP 1 TAB PO SCH (08:18)
[2022-04-13] MEDS: ATORVASTATIN 10 MG TAB PO SCH (08:18)
[2022-04-13] MEDS: OMEPRAZOLE 20MG CAP PO SCH (08:18)
[2022-04-13] MEDS: CARVedilol 6.25 MG TAB PO SCH ×2 (08:18→20:56)
[2022-04-13] MEDS: LIDOCAINE 5% (LIDODERM) PATCH TD SCH (08:21)
[2022-04-13] MEDS: NICOTINE 21MG/24HR 1 EA TRANSDERMAL TD SCH (08:21)
[2022-04-13] MEDS: OMEGA-3 1000MG CAPSULE PO SCH ×2 (08:21→20:56)
[2022-04-13] MEDS ORDERED: traZODone 50 MG TAB PO PRN (10:00)
[2022-04-13] MEDS: BENZTROPINE 1 MG TAB PO SCH ×2 (10:38→20:56)
[2022-04-13 17:55] VITALS: BP 131/85
[2022-04-13] MEDS: QUEtiapine FUMARATE 50MG TAB PO SCH (20:56)
[2022-04-13] MEDS: **NOTE PATIENT COMMENT** MISC XX SCH (20:57)
[2022-04-13] MEDS: CHLORTHALIDONE 25 MG TAB PO SCH (20:57)
[2022-04-14] MEDS: IBUPROFEN 400MG TAB PO PRN ×2 (03:15→23:38)
[2022-04-14 06:29] VITALS: BP 123/70
[2022-04-14] MEDS: BENZTROPINE 1 MG TAB PO SCH ×2 (08:52→21:12)
[2022-04-14] MEDS: ATORVASTATIN 10 MG TAB PO SCH (08:52)
[2022-04-14] MEDS: CARVedilol 6.25 MG TAB PO SCH ×2 (08:53→21:13)
[2022-04-14] MEDS: MULTIVITAMINS/MINERALS THERAP 1 TAB PO SCH (08:53)
[2022-04-14] MEDS: buPROPion **XL** TABLET 150MG (WELLBUTRIN XL) PO SCH (08:53)
[2022-04-14] MEDS: ASPIRIN 81MG ENTERIC TABLET PO SCH (08:53)
[2022-04-14] MEDS: LIDOCAINE 5% (LIDODERM) PATCH TD SCH (08:54)
[2022-04-14] MEDS: NICOTINE 21MG/24HR 1 EA TRANSDERMAL TD SCH (08:54)
[2022-04-14] MEDS: OMEGA-3 1000MG CAPSULE PO SCH ×2 (11:10→21:12)
[2022-04-14] MEDS: OMEPRAZOLE 20MG CAP PO SCH (11:11)
[2022-04-14] MEDS: TOPIRAMATE (TopAMAX) 25 MG TAB PO SCH ×2 (11:12→21:13)
[2022-04-14] MEDS: ACETAMINOPHEN TAB 650MG DOSE (2X325MG) PO PRN (17:10)
[2022-04-14 17:40] VITALS: BP 137/63
[2022-04-14] MEDS: hydrOXYzine 50 MG TAB PO PRN (19:02)
[2022-04-14] MEDS: **NOTE PATIENT COMMENT** MISC XX SCH (21:00)
[2022-04-14] MEDS: QUEtiapine FUMARATE 50MG TAB PO SCH (21:12)
[2022-04-14] MEDS: CHLORTHALIDONE 25 MG TAB PO SCH (21:12)
[2022-04-15] MEDS: ACETAMINOPHEN TAB 650MG DOSE (2X325MG) PO PRN (04:11)
[2022-04-15 06:46] VITALS: BP 128/62
[2022-04-15] MEDS: NICOTINE 21MG/24HR 1 EA TRANSDERMAL TD SCH (09:00)
[2022-04-15] MEDS: MULTIVITAMINS/MINERALS THERAP 1 TAB PO SCH (09:02)
[2022-04-15] MEDS: OMEPRAZOLE 20MG CAP PO SCH (09:02)
[2022-04-15] MEDS: BENZTROPINE 1 MG TAB PO SCH ×2 (09:02→20:36)
[2022-04-15] MEDS: ASPIRIN 81MG ENTERIC TABLET PO SCH (09:03)
[2022-04-15] MEDS: CARVedilol 6.25 MG TAB PO SCH ×2 (09:03→20:36)
[2022-04-15] MEDS: OMEGA-3 1000MG CAPSULE PO SCH ×2 (09:03→20:36)
[2022-04-15] MEDS: TOPIRAMATE (TopAMAX) 25 MG TAB PO SCH ×2 (09:03→20:36)
[2022-04-15] MEDS: buPROPion **XL** TABLET 150MG (WELLBUTRIN XL) PO SCH (09:03)
[2022-04-15] MEDS: ATORVASTATIN 10 MG TAB PO SCH (09:03)
[2022-04-15] MEDS: LIDOCAINE 5% (LIDODERM) PATCH TD SCH (09:03)
[2022-04-15] MEDS: hydrOXYzine 50 MG TAB PO PRN ×2 (14:09→21:12)
[2022-04-15 16:38] VITALS: BP 142/82
[2022-04-15] MEDS: QUEtiapine FUMARATE 50MG TAB PO SCH (20:36)
[2022-04-15] MEDS: CHLORTHALIDONE 25 MG TAB PO SCH (20:36)
[2022-04-15] MEDS: **NOTE PATIENT COMMENT** MISC XX SCH (20:38)
[2022-04-16 06:32] VITALS: BP 109/63
[2022-04-16] MEDS: NICOTINE 21MG/24HR 1 EA TRANSDERMAL TD SCH (09:08)
[2022-04-16] MEDS: OMEGA-3 1000MG CAPSULE PO SCH ×2 (09:09→20:55)
[2022-04-16] MEDS: BENZTROPINE 1 MG TAB PO SCH ×2 (09:09→20:55)
[2022-04-16] MEDS: MULTIVITAMINS/MINERALS THERAP 1 TAB PO SCH (09:09)
[2022-04-16] MEDS: LIDOCAINE 5% (LIDODERM) PATCH TD SCH (09:09)
[2022-04-16] MEDS: ASPIRIN 81MG ENTERIC TABLET PO SCH (09:09)
[2022-04-16] MEDS: OMEPRAZOLE 20MG CAP PO SCH (09:09)
[2022-04-16] MEDS: buPROPion **XL** TABLET 150MG (WELLBUTRIN XL) PO SCH (09:09)
[2022-04-16] MEDS: ATORVASTATIN 10 MG TAB PO SCH (09:09)
[2022-04-16] MEDS: TOPIRAMATE (TopAMAX) 25 MG TAB PO SCH ×2 (09:10→20:56)
[2022-04-16] MEDS: CARVedilol 6.25 MG TAB PO SCH ×2 (09:10→20:55)
[2022-04-16] MEDS: hydrOXYzine 50 MG TAB PO PRN (13:52)
[2022-04-16] MEDS: IBUPROFEN 400MG TAB PO PRN ×2 (17:19→20:56)
[2022-04-16 17:26] VITALS: BP 138/75
[2022-04-16] MEDS: CHLORTHALIDONE 25 MG TAB PO SCH (20:55)
[2022-04-16] MEDS: QUEtiapine FUMARATE 50MG TAB PO SCH (20:55)
[2022-04-16] MEDS: **NOTE PATIENT COMMENT** MISC XX SCH (20:59)
[2022-04-17 06:47] VITALS: BP 107/66
[2022-04-17] MEDS: NICOTINE 21MG/24HR 1 EA TRANSDERMAL TD SCH (09:40)
[2022-04-17] MEDS: ASPIRIN 81MG ENTERIC TABLET PO SCH (09:41)
[2022-04-17] MEDS: buPROPion **XL** TABLET 150MG (WELLBUTRIN XL) PO SCH (09:41)
[2022-04-17] MEDS: MULTIVITAMINS/MINERALS THERAP 1 TAB PO SCH (09:41)
[2022-04-17] MEDS: OMEGA-3 1000MG CAPSULE PO SCH ×2 (09:41→20:06)
[2022-04-17] MEDS: ATORVASTATIN 10 MG TAB PO SCH (09:41)
[2022-04-17] MEDS: OMEPRAZOLE 20MG CAP PO SCH (09:41)
[2022-04-17] MEDS: TOPIRAMATE (TopAMAX) 25 MG TAB PO SCH ×2 (09:42→20:06)
[2022-04-17] MEDS: CARVedilol 6.25 MG TAB PO SCH ×2 (09:42→20:06)
[2022-04-17] MEDS: LIDOCAINE 5% (LIDODERM) PATCH TD SCH (09:43)
[2022-04-17] MEDS: BENZTROPINE 1 MG TAB PO SCH ×2 (09:43→20:06)
[2022-04-17 16:57] VITALS: BP 132/72
[2022-04-17] MEDS: QUEtiapine FUMARATE 50MG TAB PO SCH (20:06)
[2022-04-17] MEDS: CHLORTHALIDONE 25 MG TAB PO SCH (20:06)
[2022-04-17] MEDS: MIRTAZAPINE 7.5MG PER 1/2 TABLET PO PRN (20:06)
[2022-04-17] MEDS: **NOTE PATIENT COMMENT** MISC XX SCH (20:11)
[2022-04-17] MEDS: hydrOXYzine 50 MG TAB PO PRN (23:16)
[2022-04-18 06:43] VITALS: BP 148/90
[2022-04-18] MEDS: LIDOCAINE 5% (LIDODERM) PATCH TD SCH (09:28)
[2022-04-18] MEDS: NICOTINE 21MG/24HR 1 EA TRANSDERMAL TD SCH (09:28)
[2022-04-18] MEDS: BENZTROPINE 1 MG TAB PO SCH ×2 (09:29→21:01)
[2022-04-18] MEDS: CARVedilol 6.25 MG TAB PO SCH ×2 (09:29→21:01)
[2022-04-18] MEDS: MULTIVITAMINS/MINERALS THERAP 1 TAB PO SCH (09:29)
[2022-04-18] MEDS: OMEPRAZOLE 20MG CAP PO SCH (09:29)
[2022-04-18] MEDS: ATORVASTATIN 10 MG TAB PO SCH (09:29)
[2022-04-18] MEDS: ASPIRIN 81MG ENTERIC TABLET PO SCH (09:29)
[2022-04-18] MEDS: OMEGA-3 1000MG CAPSULE PO SCH ×2 (09:30→21:01)
[2022-04-18] MEDS: TOPIRAMATE (TopAMAX) 25 MG TAB PO SCH ×2 (09:30→21:01)
[2022-04-18] MEDS: buPROPion **XL** TABLET 150MG (WELLBUTRIN XL) PO SCH (09:30)
[2022-04-18] MEDS: IBUPROFEN 400MG TAB PO PRN (14:51)
[2022-04-18 17:00] VITALS: BP 142/70
[2022-04-18] MEDS: **NOTE PATIENT COMMENT** MISC XX SCH (18:56)
[2022-04-18] MEDS: CHLORTHALIDONE 25 MG TAB PO SCH (21:01)
[2022-04-18] MEDS: QUEtiapine FUMARATE 50MG TAB PO SCH (21:01)
[2022-04-19] MEDS: IBUPROFEN 400MG TAB PO PRN ×2 (00:04→22:05)
[2022-04-19 06:31] VITALS: BP 114/59
[2022-04-19] MEDS: OMEGA-3 1000MG CAPSULE PO SCH ×2 (09:16→22:03)
[2022-04-19] MEDS: ATORVASTATIN 10 MG TAB PO SCH (09:16)
[2022-04-19] MEDS: BENZTROPINE 1 MG TAB PO SCH ×2 (09:16→22:03)
[2022-04-19] MEDS: ASPIRIN 81MG ENTERIC TABLET PO SCH (09:16)
[2022-04-19] MEDS: MULTIVITAMINS/MINERALS THERAP 1 TAB PO SCH (09:17)
[2022-04-19] MEDS: CARVedilol 6.25 MG TAB PO SCH ×2 (09:17→22:04)
[2022-04-19] MEDS: TOPIRAMATE (TopAMAX) 25 MG TAB PO SCH ×2 (09:17→22:03)
[2022-04-19] MEDS: buPROPion **XL** TABLET 150MG (WELLBUTRIN XL) PO SCH (09:17)
[2022-04-19] MEDS: OMEPRAZOLE 20MG CAP PO SCH (09:17)
[2022-04-19] MEDS: LIDOCAINE 5% (LIDODERM) PATCH TD SCH (09:18)
[2022-04-19] MEDS: NICOTINE 21MG/24HR 1 EA TRANSDERMAL TD SCH (09:18)
[2022-04-19 18:18] VITALS: BP 142/82
[2022-04-19] MEDS: QUEtiapine FUMARATE 100 MG TAB PO SCH (22:03)
[2022-04-19] MEDS: CHLORTHALIDONE 25 MG TAB PO SCH (22:03)
[2022-04-19] MEDS: **NOTE PATIENT COMMENT** MISC XX SCH (22:06)
[2022-04-20 06:46] VITALS: BP 124/67
[2022-04-20] MEDS: NICOTINE 21MG/24HR 1 EA TRANSDERMAL TD SCH (08:52)
[2022-04-20] MEDS: LIDOCAINE 5% (LIDODERM) PATCH TD SCH (08:53)
[2022-04-20] MEDS: TOPIRAMATE (TopAMAX) 25 MG TAB PO SCH ×2 (08:54→21:05)
[2022-04-20] MEDS: ASPIRIN 81MG ENTERIC TABLET PO SCH (08:54)
[2022-04-20] MEDS: BENZTROPINE 1 MG TAB PO SCH ×2 (08:54→21:04)
[2022-04-20] MEDS: MULTIVITAMINS/MINERALS THERAP 1 TAB PO SCH (08:54)
[2022-04-20] MEDS: OMEGA-3 1000MG CAPSULE PO SCH ×2 (08:54→21:04)
[2022-04-20] MEDS: ATORVASTATIN 10 MG TAB PO SCH (08:54)
[2022-04-20] MEDS: CARVedilol 6.25 MG TAB PO SCH ×2 (08:54→21:05)
[2022-04-20] MEDS: OMEPRAZOLE 20MG CAP PO SCH (08:55)
[2022-04-20] MEDS: buPROPion **XL** TABLET 150MG (WELLBUTRIN XL) PO SCH (08:55)
[2022-04-20] MEDS: ACETAMINOPHEN TAB 650MG DOSE (2X325MG) PO PRN ×2 (09:42→15:39)
[2022-04-20] MEDS: IBUPROFEN 400MG TAB PO PRN (09:42)
[2022-04-20] MEDS: hydrOXYzine 50 MG TAB PO PRN (15:36)
[2022-04-20 18:14] VITALS: BP 126/75
[2022-04-20] MEDS: QUEtiapine FUMARATE 100 MG TAB PO SCH (21:04)
[2022-04-20] MEDS: CHLORTHALIDONE 25 MG TAB PO SCH (21:04)
[2022-04-20] MEDS: MIRTAZAPINE 7.5MG PER 1/2 TABLET PO PRN (21:05)
[2022-04-20] MEDS: **NOTE PATIENT COMMENT** MISC XX SCH (21:05)
[2022-04-21 06:31] VITALS: BP 117/58
[2022-04-21] MEDS: NICOTINE 21MG/24HR 1 EA TRANSDERMAL TD SCH (09:38)
[2022-04-21] MEDS: LIDOCAINE 5% (LIDODERM) PATCH TD SCH (09:38)
[2022-04-21] MEDS: MULTIVITAMINS/MINERALS THERAP 1 TAB PO SCH (09:39)
[2022-04-21] MEDS: CARVedilol 6.25 MG TAB PO SCH ×2 (09:39→20:38)
[2022-04-21] MEDS: OMEGA-3 1000MG CAPSULE PO SCH ×2 (09:39→20:38)
[2022-04-21] MEDS: ASPIRIN 81MG ENTERIC TABLET PO SCH (09:39)
[2022-04-21] MEDS: BENZTROPINE 1 MG TAB PO SCH ×2 (09:39→20:38)
[2022-04-21] MEDS: ATORVASTATIN 10 MG TAB PO SCH (09:39)
[2022-04-21] MEDS: OMEPRAZOLE 20MG CAP PO SCH (09:39)
[2022-04-21] MEDS: buPROPion **XL** TABLET 150MG (WELLBUTRIN XL) PO SCH (09:39)
[2022-04-21] MEDS: TOPIRAMATE (TopAMAX) 25 MG TAB PO SCH ×2 (09:39→20:38)
[2022-04-21] MEDS: IBUPROFEN 400MG TAB PO PRN (13:29)
[2022-04-21] MEDS: hydrOXYzine 50 MG TAB PO PRN (13:29)
[2022-04-21 18:27] VITALS: BP 138/80
[2022-04-21] MEDS: ACETAMINOPHEN TAB 650MG DOSE (2X325MG) PO PRN (19:32)
[2022-04-21] MEDS: CHLORTHALIDONE 25 MG TAB PO SCH (20:38)
[2022-04-21] MEDS: MIRTAZAPINE 7.5MG PER 1/2 TABLET PO PRN (20:38)
[2022-04-21] MEDS: QUEtiapine FUMARATE 100 MG TAB PO SCH (20:38)
[2022-04-21] MEDS: **NOTE PATIENT COMMENT** MISC XX SCH (20:40)
[2022-04-22 07:02] VITALS: BP 109/57
[2022-04-22] MEDS ORDERED: buPROPion **XL** TABLET 150MG (WELLBUTRIN XL) PO SCH (09:00)
[2022-04-22] MEDS: NICOTINE 21MG/24HR 1 EA TRANSDERMAL TD SCH (09:34)
[2022-04-22] MEDS: LIDOCAINE 5% (LIDODERM) PATCH TD SCH (09:35)
[2022-04-22] MEDS: CARVedilol 6.25 MG TAB PO SCH ×2 (09:36→21:26)
[2022-04-22] MEDS: TOPIRAMATE (TopAMAX) 25 MG TAB PO SCH ×2 (09:36→21:27)
[2022-04-22] MEDS: OMEPRAZOLE 20MG CAP PO SCH (09:36)
[2022-04-22] MEDS: ASPIRIN 81MG ENTERIC TABLET PO SCH (09:37)
[2022-04-22] MEDS: ATORVASTATIN 10 MG TAB PO SCH (09:37)
[2022-04-22] MEDS: BENZTROPINE 1 MG TAB PO SCH ×2 (09:37→21:26)
[2022-04-22] MEDS: MULTIVITAMINS/MINERALS THERAP 1 TAB PO SCH (09:37)
[2022-04-22] MEDS: OMEGA-3 1000MG CAPSULE PO SCH (09:37)
[2022-04-22] MEDS: hydrOXYzine 50 MG TAB PO PRN (11:02)
[2022-04-22 18:00] VITALS: BP 139/95
[2022-04-22] MEDS: QUEtiapine FUMARATE 100 MG TAB PO SCH (21:26)
[2022-04-22] MEDS: CHLORTHALIDONE 25 MG TAB PO SCH (21:26)
[2022-04-22] MEDS: **NOTE PATIENT COMMENT** MISC XX SCH (21:28)
[2022-04-22] MEDS: MIRTAZAPINE 15 MG TAB PO PRN (22:35)
[2022-04-23 06:56] VITALS: BP 111/59
[2022-04-23] MEDS: CARVedilol 6.25 MG TAB PO SCH ×2 (08:39→21:28)
[2022-04-23] MEDS: TOPIRAMATE (TopAMAX) 25 MG TAB PO SCH ×2 (08:39→21:28)
[2022-04-23] MEDS: ATORVASTATIN 10 MG TAB PO SCH (08:39)
[2022-04-23] MEDS: ASPIRIN 81MG ENTERIC TABLET PO SCH (08:39)
[2022-04-23] MEDS: BENZTROPINE 1 MG TAB PO SCH ×2 (08:39→21:28)
[2022-04-23] MEDS: OMEPRAZOLE 20MG CAP PO SCH (08:39)
[2022-04-23] MEDS: MULTIVITAMINS/MINERALS THERAP 1 TAB PO SCH (08:39)
[2022-04-23] MEDS: NICOTINE 21MG/24HR 1 EA TRANSDERMAL TD SCH (08:40)
[2022-04-23] MEDS: LIDOCAINE 5% (LIDODERM) PATCH TD SCH (08:40)
[2022-04-23] MEDS ORDERED: buPROPion (WELLBUTRIN SR) 100 MG SR TAB PO SCH (09:00)
[2022-04-23] MEDS: hydrOXYzine 50 MG TAB PO PRN (17:15)
[2022-04-23 18:16] VITALS: BP 132/69
[2022-04-23] MEDS: MIRTAZAPINE 15 MG TAB PO PRN (21:27)
[2022-04-23] MEDS: QUEtiapine FUMARATE 50MG TAB PO SCH (21:27)
[2022-04-23] MEDS: CHLORTHALIDONE 25 MG TAB PO SCH (21:28)
[2022-04-23] MEDS: **NOTE PATIENT COMMENT** MISC XX SCH (21:30)
[2022-04-24 04:31] VITALS: BP 139/75
[2022-04-24] MEDS ORDERED: traMADol 50 MG TAB PO PRN (05:35)
[2022-04-24] MEDS: LIDOCAINE 5% (LIDODERM) PATCH TD SCH (09:20)
[2022-04-24] MEDS: NICOTINE 21MG/24HR 1 EA TRANSDERMAL TD SCH (09:20)
[2022-04-24] MEDS: TOPIRAMATE (TopAMAX) 25 MG TAB PO SCH ×2 (09:21→21:35)
[2022-04-24] MEDS: OMEPRAZOLE 20MG CAP PO SCH (09:21)
[2022-04-24] MEDS: ATORVASTATIN 10 MG TAB PO SCH (09:21)
[2022-04-24] MEDS: MULTIVITAMINS/MINERALS THERAP 1 TAB PO SCH (09:21)
[2022-04-24] MEDS: BENZTROPINE 1 MG TAB PO SCH ×2 (09:21→21:35)
[2022-04-24] MEDS: ASPIRIN 81MG ENTERIC TABLET PO SCH (09:21)
[2022-04-24] MEDS: CARVedilol 6.25 MG TAB PO SCH ×2 (09:22→21:00)
[2022-04-24] MEDS: CHLORTHALIDONE 25 MG TAB PO SCH (09:22)
[2022-04-24] MEDS: hydrOXYzine 50 MG TAB PO PRN (17:47)
[2022-04-24] MEDS: IBUPROFEN 400MG TAB PO PRN (17:47)
[2022-04-24 18:21] VITALS: BP 120/72
[2022-04-24 18:35] VITALS: BP_SYST 126; BP_SYST 134; BP_SYST 157; BP_DIAS 64; BP_DIAS 65; BP_DIAS 88
[2022-04-24 21:10] VITALS: BP_SYST 108; BP_SYST 124; BP_SYST 128; BP_DIAS 62; BP_DIAS 68; BP_DIAS 70
[2022-04-24] MEDS: QUEtiapine FUMARATE 50MG TAB PO SCH (21:35)
[2022-04-24] MEDS: **NOTE PATIENT COMMENT** MISC XX SCH (21:39)
[2022-04-25 06:50] VITALS: BP 112/75
[2022-04-25 06:51] VITALS: BP_SYST 130; BP_SYST 144; BP_DIAS 63; BP_DIAS 82
[2022-04-25] MEDS: CARVedilol 6.25 MG TAB PO SCH ×2 (09:00→21:34)
[2022-04-25] MEDS: CHLORTHALIDONE 25 MG TAB PO SCH (09:00)
[2022-04-25] MEDS: LIDOCAINE 5% (LIDODERM) PATCH TD SCH (09:01)
[2022-04-25] MEDS: TOPIRAMATE (TopAMAX) 25 MG TAB PO SCH ×2 (09:02→21:34)
[2022-04-25] MEDS: MULTIVITAMINS/MINERALS THERAP 1 TAB PO SCH (09:02)
[2022-04-25] MEDS: OMEPRAZOLE 20MG CAP PO SCH (09:02)
[2022-04-25] MEDS: NICOTINE 21MG/24HR 1 EA TRANSDERMAL TD SCH (09:02)
[2022-04-25] MEDS: ASPIRIN 81MG ENTERIC TABLET PO SCH (09:02)
[2022-04-25] MEDS: ATORVASTATIN 10 MG TAB PO SCH (09:03)
[2022-04-25] MEDS: BENZTROPINE 1 MG TAB PO SCH ×2 (09:03→21:34)
[2022-04-25] MEDS: ACETAMINOPHEN TAB 650MG DOSE (2X325MG) PO PRN ×2 (11:07→19:17)
[2022-04-25 18:15] VITALS: BP 125/59
[2022-04-25] MEDS: QUEtiapine FUMARATE 50MG TAB PO SCH (21:34)
[2022-04-25] MEDS: **NOTE PATIENT COMMENT** MISC XX SCH (21:38)
[2022-04-26 06:40] VITALS: BP 121/59
[2022-04-26] MEDS: ASPIRIN 81MG ENTERIC TABLET PO SCH (09:22)
[2022-04-26] MEDS: BENZTROPINE 1 MG TAB PO SCH ×2 (09:22→21:33)
[2022-04-26] MEDS: OMEPRAZOLE 20MG CAP PO SCH (09:22)
[2022-04-26] MEDS: amLODIPine 5 MG TAB PO SCH (09:23)
[2022-04-26] MEDS: CARVedilol 6.25 MG TAB PO SCH ×2 (09:23→21:34)
[2022-04-26] MEDS: MULTIVITAMINS/MINERALS THERAP 1 TAB PO SCH (09:25)
[2022-04-26] MEDS: TOPIRAMATE (TopAMAX) 25 MG TAB PO SCH ×2 (09:25→21:33)
[2022-04-26] MEDS: ATORVASTATIN 10 MG TAB PO SCH (09:25)
[2022-04-26] MEDS: LIDOCAINE 5% (LIDODERM) PATCH TD SCH (10:42)
[2022-04-26] MEDS: NICOTINE 21MG/24HR 1 EA TRANSDERMAL TD SCH (10:42)
[2022-04-26 16:21] VITALS: BP 114/60
[2022-04-26] MEDS ORDERED: QUEtiapine FUMARATE 100 MG TAB PO SCH (21:00)
[2022-04-26] MEDS: **NOTE PATIENT COMMENT** MISC XX SCH (21:35)
[2022-04-27 06:19] VITALS: BP 137/62
[2022-04-27] MEDS ORDERED: HYDR50TA70 PO (07:58)
[2022-04-27] MEDS ORDERED: BENZ-52 PO (07:58)
[2022-04-27] MEDS ORDERED: QUET200T2 PO (07:58)
[2022-04-27 08:50] VITALS: BP 108/60
[2022-04-27 08:52] VITALS: BP 108/60
[2022-04-27] MEDS: amLODIPine 5 MG TAB PO SCH (08:52)
[2022-04-27] MEDS: CARVedilol 6.25 MG TAB PO SCH (08:52)
[2022-04-27] MEDS: LIDOCAINE 5% (LIDODERM) PATCH TD SCH (08:53)
[2022-04-27] MEDS: NICOTINE 21MG/24HR 1 EA TRANSDERMAL TD SCH (08:57)
[2022-04-27] MEDS: ATORVASTATIN 10 MG TAB PO SCH (08:58)
[2022-04-27] MEDS: MULTIVITAMINS/MINERALS THERAP 1 TAB PO SCH (08:58)
[2022-04-27] MEDS: ASPIRIN 81MG ENTERIC TABLET PO SCH (08:58)
[2022-04-27] MEDS: OMEPRAZOLE 20MG CAP PO SCH (08:58)
[2022-04-27] MEDS: TOPIRAMATE (TopAMAX) 25 MG TAB PO SCH (08:58)
[2022-04-27] MEDS: BENZTROPINE 1 MG TAB PO SCH (08:58)
== END 2022-04-27 12:53 | disposition home or self-care (01) | DRG 885 ==
LOC: M ED 15:02 → M ED INP 23:06 → M PSY 03-25 00:28
PROVIDERS: ADMIT Student in an Organized Health Care Education/Training Program; ATTEND Psychiatry & Neurology Psychiatry
DX: F31.60 Bipolar disorder, current episode mixed, unspecified (principal); R45.851 Suicidal ideations; F17.200 Nicotine dependence, unspecified, uncomplicated; F41.9 Anxiety disorder, unspecified; F20.9 Schizophrenia, unspecified; Z79.899 Other long term (current) drug therapy; Z88.8 Allergy status to other drugs, medicaments and biological substances; Z88.7 Allergy status to serum and vaccine; G43.909 Migraine, unspecified, not intractable, without status migrainosus; I10 Essential (primary) hypertension; I25.10 Atherosclerotic heart disease of native coronary artery without angina pectoris; Z95.2 Presence of prosthetic heart valve; G47.33 Obstructive sleep apnea (adult) (pediatric); E11.9 Type 2 diabetes mellitus without complications; M54.2 Cervicalgia; M54.59 Other low back pain; K21.9 Gastro-esophageal reflux disease without esophagitis

== ENCOUNTER 2022-05-07 00:44 | Inpatient (IN) | payer MEDICARE, MEDICAID ==
[~2022-05-07] VITALS: Ht 160 cm; Wt 75.4 kg
[~2022-05-07 00:44] MED LIST changes: +CARV6.25 PO; +CHLO125TA PO; +CLOP75TA99 PO; +DIPH-435 PO; -DIPH25CA32 PO; +NYST-38 SS; -NYST50SS SS; +OMEP-173 PO; +PATIENT COMMENT; -PLAV1TAB2 PO; +QUET200T2 PO
[2022-05-07] MEDS ORDERED: OLANZapine ORAL DISINTEGRATING TAB 5MG PO ONE (09:55)
[2022-05-07 11:28] LABS: HEMATOCRIT 33.7 % (36.0-47.0); MEAN CORPUSCULAR HEMOGLOBIN 30.1 pg (27.0-33.0); MEAN CORPUSCULAR HGB CONC 35.6 g/dl (32.0-36.5); MEAN CORPUSCULAR VOLUME 84.5 fl (80.0-96.0); PLATELET COUNT, AUTOMATED 281 10^3/uL (150-450); RED BLOOD COUNT 3.99 10^6/uL (4.00-5.40); WHITE BLOOD COUNT 12.1 10^3/uL (4.0-10.0)
[2022-05-07 12:03] LABS: RSV AMPLIFICATION NEGATIVE (NEGATIVE)
[2022-05-07 12:16] LABS: ACETAMINOPHEN LEVEL < 2.0 UG/ML (10.0-30.0); ALBUMIN 3.3 GM/DL (3.2-5.2); ALKALINE PHOSPHATASE 103 U/L (45-117); ALT/SGPT 21 U/L (12-78); AST/SGOT 15 U/L (7-37); BILIRUBIN,DIRECT 0.2 MG/DL (0.0-0.2); BILIRUBIN,TOTAL 0.4 MG/DL (0.2-1.0); BLOOD UREA NITROGEN 27 MG/DL (7-18); CALCIUM LEVEL 9.1 MG/DL (8.8-10.2); CARBON DIOXIDE LEVEL 30 MEQ/L (21-32); CHLORIDE LEVEL 93 MEQ/L (98-107); CREATININE FOR GFR 1.09 MG/DL (0.55-1.30); ETHYL ALCOHOL (ETHANOL) < 0.003 % (0.000-0.010); GLOMERULAR FILTRATION RATE 54.3 (>45); GLUCOSE, FASTING 128 MG/DL (70-100); POTASSIUM SERUM 2.3 MEQ/L (3.5-5.1); SALICYLATE LEVEL 1.9 MG/DL (5.0-30.0); SODIUM LEVEL 131 MEQ/L (136-145); TOTAL PROTEIN 6.6 GM/DL (6.4-8.2)
[2022-05-07] MEDS ORDERED: KCL 10MEQ/100ML SWI (KRUN) 10 MEQ in IV 1 EA IV ONE ×2 (12:25→23:15)
[2022-05-07] MEDS ORDERED: POTASSIUM CHLORIDE 10MEQ SR TABLET PO ONE ×3 (12:25→19:15)
[2022-05-07 12:50] LABS: MAGNESIUM LEVEL 2.2 MG/DL (1.8-2.4)
[2022-05-07 15:28] LABS: AMPHETAMINES LEVEL URINE NEGATIVE (NEGATIVE); BARBITURATES URINE NEGATIVE (NEGATIVE); BENZODIAZEPINES URINE NEGATIVE (NEGATIVE); CANNABINOIDS URINE NEGATIVE (NEGATIVE); COCAINE METABOLITE URINE NEGATIVE (NEGATIVE); METHADONE URINE NEGATIVE (NEGATIVE); OPIATES URINE NEGATIVE (NEGATIVE); PHENCYCLIDINE URINE NEGATIVE (NEGATIVE)
[2022-05-07] MEDS ORDERED: QUET200T2 PO (15:48)
[2022-05-07] MEDS ORDERED: HYDR50TA70 PO (15:48)
[2022-05-07] MEDS ORDERED: BENZ-52 PO (15:48)
[2022-05-07] MEDS ORDERED: HOME MED LIST COMPLETE! XX SCH (15:55)
[2022-05-07 19:12] LABS: CALCIUM LEVEL 10.3 MG/DL (8.8-10.2); CREATININE FOR GFR 1.15 MG/DL (0.55-1.30); GLOMERULAR FILTRATION RATE 51.1 (>45); POTASSIUM SERUM 2.8 MEQ/L (3.5-5.1)
[2022-05-07 22:37] LABS: CALCIUM LEVEL 9.7 MG/DL (8.8-10.2); CREATININE FOR GFR 1.19 MG/DL (0.55-1.30); GLOMERULAR FILTRATION RATE 49.1 (>45); POTASSIUM SERUM 2.7 MEQ/L (3.5-5.1)
[2022-05-08] MEDS ORDERED: POTASSIUM CHLORIDE 10% LIQ 20MEQ/15ML UDC PO ONE
[2022-05-08] MEDS ORDERED: KCL 10MEQ/100ML SWI (KRUN) 10 MEQ in IV 1 EA IV ONE ×2 (01:00→02:00)
[2022-05-08 06:37] LABS: BLOOD UREA NITROGEN 20 MG/DL (7-18); CALCIUM LEVEL 8.9 MG/DL (8.8-10.2); CARBON DIOXIDE LEVEL 27 MEQ/L (21-32); CHLORIDE LEVEL 106 MEQ/L (98-107); CREATININE FOR GFR 0.77 MG/DL (0.55-1.30); GLOMERULAR FILTRATION RATE > 60.0 (>45); GLUCOSE, FASTING 107 MG/DL (70-100); POTASSIUM SERUM 3.8 MEQ/L (3.5-5.1); SODIUM LEVEL 140 MEQ/L (136-145)
[2022-05-08] MEDS ORDERED: hydrOXYzine 50 MG TAB PO PRN (07:00)
[2022-05-08] MEDS: CARVedilol 6.25 MG TAB PO SCH ×2 (09:00→09:30)
[2022-05-08] MEDS: BENZTROPINE 1 MG TAB PO SCH ×2 (09:00→09:30)
[2022-05-08] MEDS: ASPIRIN 81MG ENTERIC TABLET PO SCH (09:30)
[2022-05-08] MEDS: TOPIRAMATE (TopAMAX) 100 MG TAB PO SCH ×2 (09:30→20:30)
[2022-05-08] MEDS: QUEtiapine FUMARATE 200 MG TAB PO SCH (20:30)
[2022-05-08] MEDS: CHLORTHALIDONE 25 MG TAB PO SCH (20:51)
[2022-05-08] MEDS ORDERED: POTASSIUM CHLORIDE 10MEQ SR TABLET PO ONE (21:00)
[2022-05-09] MEDS: TOPIRAMATE (TopAMAX) 100 MG TAB PO SCH ×2 (09:20→20:58)
[2022-05-09] MEDS: BENZTROPINE 1 MG TAB PO SCH ×2 (09:20→20:58)
[2022-05-09] MEDS: ASPIRIN 81MG ENTERIC TABLET PO SCH (09:20)
[2022-05-09] MEDS: CARVedilol 6.25 MG TAB PO SCH ×2 (09:20→20:59)
[2022-05-09] MEDS: QUEtiapine FUMARATE 200 MG TAB PO SCH (20:58)
[2022-05-09] MEDS: CHLORTHALIDONE 25 MG TAB PO SCH (20:59)
[2022-05-10] MEDS: ASPIRIN 81MG ENTERIC TABLET PO SCH (09:17)
[2022-05-10] MEDS: BENZTROPINE 1 MG TAB PO SCH ×2 (09:17→21:12)
[2022-05-10] MEDS: CARVedilol 6.25 MG TAB PO SCH ×2 (09:18→21:12)
[2022-05-10] MEDS: TOPIRAMATE (TopAMAX) 100 MG TAB PO SCH ×2 (09:18→21:11)
[2022-05-10] MEDS ORDERED: MAALOX 30 ML SUSP *UDC PO PRN (13:20)
[2022-05-10] MEDS ORDERED: hydrOXYzine 50 MG TAB PO PRN (13:20)
[2022-05-10] MEDS ORDERED: tiZANidine 4 MG TAB PO PRN (13:20)
[2022-05-10] MEDS ORDERED: MOM 30ML SUSPENSION UDC PO PRN (13:20)
[2022-05-10] MEDS ORDERED: OMEPRAZOLE 20MG CAP PO PRN (13:20)
[2022-05-10] MEDS ORDERED: IBUPROFEN 400MG TAB PO PRN (13:20)
[2022-05-10] MEDS ORDERED: ONDANSETRON 4MG ORAL DISINTEGRATING TAB PO ONE (16:20)
[2022-05-10 16:25] LABS: RSV AMPLIFICATION NEGATIVE (NEGATIVE)
[2022-05-10 17:08] VITALS: BP 154/76
[2022-05-10] MEDS: QUEtiapine FUMARATE 200 MG TAB PO SCH (21:12)
[2022-05-10] MEDS: CHLORTHALIDONE 25 MG TAB PO SCH (21:12)
[2022-05-11 06:19] VITALS: BP 116/60
[2022-05-11] MEDS: CARVedilol 6.25 MG TAB PO SCH ×2 (07:49→21:15)
[2022-05-11] MEDS: TOPIRAMATE (TopAMAX) 100 MG TAB PO SCH ×2 (07:49→21:13)
[2022-05-11] MEDS: BENZTROPINE 1 MG TAB PO SCH ×2 (07:50→21:14)
[2022-05-11] MEDS ORDERED: ASPIRIN 81MG ENTERIC TABLET PO SCH (09:00)
[2022-05-11] MEDS ORDERED: NICOTINE 14 MG/24 HR TRANSDERMAL TD PRN (10:45)
[2022-05-11 17:00] VITALS: BP 125/66
[2022-05-11] MEDS: QUEtiapine FUMARATE 200 MG TAB PO SCH (21:13)
[2022-05-11] MEDS: CHLORTHALIDONE 25 MG TAB PO SCH (21:14)
[2022-05-12 01:10] VITALS: BP 150/75
[2022-05-12] MEDS ORDERED: PERCOCET 5MG/325MG TAB PO ONE (02:05)
[2022-05-12 03:20] VITALS: BP_SYST 122; BP_SYST 145; BP_SYST 150; BP_DIAS 70; BP_DIAS 73; BP_DIAS 75
[2022-05-12] MEDS ORDERED: ARIPiprazole MONOHYDRATE 400 MG INJ (ABILIFY)(FREE PSY INPT ONLY) IM ONE (10:00)
[2022-05-14 05:30] VITALS: BP 158/94
[2022-05-14] MEDS ORDERED: K-TA1TAB PO (14:01)
[2022-05-14] MEDS ORDERED: NICOTINE 14 MG/24 HR TRANSDERMAL TD PRN (18:20)
[2022-05-14] MEDS ORDERED: MAALOX 30 ML SUSP *UDC PO PRN (18:20)
[2022-05-14] MEDS: TOPIRAMATE (TopAMAX) 100 MG TAB PO SCH (20:12)
[2022-05-14] MEDS: DOCUSATE SODIUM 100MG CAPSULE PO SCH (20:12)
[2022-05-14] MEDS: BENZTROPINE 1 MG TAB PO SCH (20:12)
[2022-05-14] MEDS: QUEtiapine FUMARATE 50MG TAB PO SCH (20:12)
[2022-05-14] MEDS: DICLOFENAC EPOLAMINE 1.3% PATCH TOP SCH (20:27)
[2022-05-14] MEDS: DIMETHICONE 2% OINTMENT(VANICREAM) 70GM TUBE TOP SCH (20:28)
[2022-05-15 06:17] VITALS: BP 133/66
[2022-05-15] MEDS: DOCUSATE SODIUM 100MG CAPSULE PO SCH ×2 (07:59→20:04)
[2022-05-15] MEDS: ASPIRIN 81MG ENTERIC TABLET PO SCH (08:00)
[2022-05-15] MEDS: BENZTROPINE 1 MG TAB PO SCH ×2 (08:00→20:04)
[2022-05-15] MEDS: POTASSIUM CHLORIDE 10MEQ SR TABLET PO SCH ×3 (08:00→13:32)
[2022-05-15] MEDS: OMEPRAZOLE 20MG CAP PO SCH (08:01)
[2022-05-15] MEDS: TOPIRAMATE (TopAMAX) 100 MG TAB PO SCH ×2 (08:01→20:04)
[2022-05-15] MEDS: DIMETHICONE 2% OINTMENT(VANICREAM) 70GM TUBE TOP SCH ×2 (09:00→20:05)
[2022-05-15] MEDS ORDERED: POTASSIUM CHLORIDE 10MEQ SR TABLET PO SCH (09:00)
[2022-05-15 09:42] LABS: POTASSIUM SERUM 3.7 MEQ/L (3.5-5.1)
[2022-05-15 12:07] LABS: HEMATOCRIT 35.5 % (36.0-47.0); HEMOGLOBIN 12.1 g/dl (12.0-15.5); MEAN CORPUSCULAR HEMOGLOBIN 29.3 pg (27.0-33.0); MEAN CORPUSCULAR HGB CONC 34.1 g/dl (32.0-36.5); PLATELET COUNT, AUTOMATED 309 10^3/uL (150-450); RED BLOOD COUNT 4.13 10^6/uL (4.00-5.40); WHITE BLOOD COUNT 7.9 10^3/uL (4.0-10.0)
[2022-05-15] MEDS: DICLOFENAC EPOLAMINE 1.3% PATCH TOP SCH ×2 (13:32→20:04)
[2022-05-15 16:03] VITALS: BP 136/90
[2022-05-15] MEDS: QUEtiapine FUMARATE 50MG TAB PO SCH (20:04)
[2022-05-16 06:14] VITALS: BP 134/67
[2022-05-16] MEDS: DICLOFENAC EPOLAMINE 1.3% PATCH TOP SCH ×2 (09:20→20:29)
[2022-05-16] MEDS: DIMETHICONE 2% OINTMENT(VANICREAM) 70GM TUBE TOP SCH ×2 (09:20→20:31)
[2022-05-16] MEDS: DOCUSATE SODIUM 100MG CAPSULE PO SCH ×2 (09:21→20:33)
[2022-05-16] MEDS: TOPIRAMATE (TopAMAX) 100 MG TAB PO SCH ×2 (09:21→20:33)
[2022-05-16] MEDS: OMEPRAZOLE 20MG CAP PO SCH (09:21)
[2022-05-16] MEDS: ENOXAPARIN 40MG/0.4ML SYRINGE (J1650 PER 10MG) SC SCH (09:21)
[2022-05-16] MEDS: BENZTROPINE 1 MG TAB PO SCH ×2 (09:21→20:33)
[2022-05-16] MEDS: ASPIRIN 81MG ENTERIC TABLET PO SCH (09:21)
[2022-05-16 10:09] VITALS: BP 143/75
[2022-05-16 16:10] VITALS: BP 132/78
[2022-05-16] MEDS: QUEtiapine FUMARATE 50MG TAB PO SCH (20:33)
[2022-05-17 06:04] VITALS: BP 106/60
[2022-05-17] MEDS: DICLOFENAC EPOLAMINE 1.3% PATCH TOP SCH ×2 (08:31→20:04)
[2022-05-17] MEDS: ENOXAPARIN 40MG/0.4ML SYRINGE (J1650 PER 10MG) SC SCH (08:31)
[2022-05-17] MEDS: DIMETHICONE 2% OINTMENT(VANICREAM) 70GM TUBE TOP SCH ×2 (08:31→20:04)
[2022-05-17] MEDS: TOPIRAMATE (TopAMAX) 100 MG TAB PO SCH ×2 (08:31→20:07)
[2022-05-17] MEDS: BENZTROPINE 1 MG TAB PO SCH ×2 (08:32→20:07)
[2022-05-17] MEDS: ASPIRIN 81MG ENTERIC TABLET PO SCH (08:32)
[2022-05-17] MEDS: ARIPiprazole 10 MG TAB PO SCH (08:32)
[2022-05-17] MEDS: DOCUSATE SODIUM 100MG CAPSULE PO SCH ×2 (08:32→20:07)
[2022-05-17] MEDS: OMEPRAZOLE 20MG CAP PO SCH (08:32)
[2022-05-17 18:07] VITALS: BP 149/83
[2022-05-17] MEDS: QUEtiapine FUMARATE 50MG TAB PO SCH (20:07)
[2022-05-18 06:21] LABS: HEMATOCRIT 32.8 % (36.0-47.0); HEMOGLOBIN 10.8 g/dl (12.0-15.5); MEAN CORPUSCULAR HEMOGLOBIN 28.8 pg (27.0-33.0); MEAN CORPUSCULAR HGB CONC 32.9 g/dl (32.0-36.5); MEAN CORPUSCULAR VOLUME 87.5 fl (80.0-96.0); PLATELET COUNT, AUTOMATED 286 10^3/uL (150-450); RED BLOOD COUNT 3.75 10^6/uL (4.00-5.40); WHITE BLOOD COUNT 7.5 10^3/uL (4.0-10.0)
[2022-05-18 06:23] VITALS: BP 131/63
[2022-05-18] MEDS: ASPIRIN 81MG ENTERIC TABLET PO SCH (09:57)
[2022-05-18] MEDS: DOCUSATE SODIUM 100MG CAPSULE PO SCH ×2 (09:57→20:01)
[2022-05-18] MEDS: OMEPRAZOLE 20MG CAP PO SCH (09:58)
[2022-05-18] MEDS: ARIPiprazole 10 MG TAB PO SCH (09:58)
[2022-05-18] MEDS: BENZTROPINE 1 MG TAB PO SCH ×2 (09:58→20:01)
[2022-05-18] MEDS: DICLOFENAC EPOLAMINE 1.3% PATCH TOP SCH ×2 (09:58→20:02)
[2022-05-18] MEDS: TOPIRAMATE (TopAMAX) 100 MG TAB PO SCH ×2 (09:58→20:01)
[2022-05-18] MEDS: ENOXAPARIN 40MG/0.4ML SYRINGE (J1650 PER 10MG) SC SCH (09:58)
[2022-05-18] MEDS: DIMETHICONE 2% OINTMENT(VANICREAM) 70GM TUBE TOP SCH ×2 (10:11→20:02)
[2022-05-18 17:28] VITALS: BP 162/80
[2022-05-18] MEDS: QUEtiapine FUMARATE 50MG TAB PO SCH (20:01)
[2022-05-19 06:25] VITALS: BP 154/88
[2022-05-19] MEDS: DIMETHICONE 2% OINTMENT(VANICREAM) 70GM TUBE TOP SCH ×2 (09:00→19:59)
[2022-05-19] MEDS: ENOXAPARIN 40MG/0.4ML SYRINGE (J1650 PER 10MG) SC SCH ×2 (09:00→09:58)
[2022-05-19] MEDS: OMEPRAZOLE 20MG CAP PO SCH (09:57)
[2022-05-19] MEDS: BENZTROPINE 1 MG TAB PO SCH ×2 (09:58→19:59)
[2022-05-19] MEDS: ASPIRIN 81MG ENTERIC TABLET PO SCH (09:58)
[2022-05-19] MEDS: TOPIRAMATE (TopAMAX) 100 MG TAB PO SCH ×2 (09:58→19:59)
[2022-05-19] MEDS: DOCUSATE SODIUM 100MG CAPSULE PO SCH ×2 (09:58→19:59)
[2022-05-19] MEDS: DICLOFENAC EPOLAMINE 1.3% PATCH TOP SCH ×2 (09:59→19:59)
[2022-05-19 11:11] LABS: ALBUMIN 3.7 GM/DL (3.2-5.2); BILIRUBIN,TOTAL 0.2 MG/DL (0.2-1.0); CALCIUM LEVEL 9.8 MG/DL (8.8-10.2); CREATININE FOR GFR 1.07 MG/DL (0.55-1.30); GLOMERULAR FILTRATION RATE 55.5 (>45); POTASSIUM SERUM 3.5 MEQ/L (3.5-5.1); TOTAL PROTEIN 7.1 GM/DL (6.4-8.2)
[2022-05-19 19:11] VITALS: BP 150/88
[2022-05-19] MEDS: QUEtiapine FUMARATE 200 MG TAB PO SCH (19:59)
[2022-05-20 06:18] VITALS: BP 143/83
[2022-05-20 06:32] VITALS: BP 131/70
[2022-05-20] MEDS: ENOXAPARIN 40MG/0.4ML SYRINGE (J1650 PER 10MG) SC SCH (09:00)
[2022-05-20 09:52] LABS: APPEARANCE, URINE MANUAL CLEAR (CLEAR); COLOR, URINE MANUAL YELLOW (YELLOW)
[2022-05-20 09:54] LABS: BILIRUBIN, URINE MANUAL NEGATIVE (NEGATIVE); BLOOD URINE MANUAL NEGATIVE (NEGATIVE); GLUCOSE, URINE (UA) MANUAL NEGATIVE (NEGATIVE); KETONE, URINE MANUAL NEGATIVE (NEGATIVE); LEUKOCYTE ESTERASE, URINE MAN POSITIVE (NEGATIVE); NITRITE, URINE MANUAL NEGATIVE (NEGATIVE); PROTEIN, URINE MANUAL NEGATIVE (NEGATIVE); SPECIFIC GRAVITY,URINE MANUAL 1.015 (1.002-1.035); UROBILINOGEN, URINE MANUAL NORMAL (NORMAL)
[2022-05-20] MEDS: TOPIRAMATE (TopAMAX) 100 MG TAB PO SCH ×2 (09:54→19:59)
[2022-05-20] MEDS: DOCUSATE SODIUM 100MG CAPSULE PO SCH ×2 (09:54→19:59)
[2022-05-20] MEDS: ASPIRIN 81MG ENTERIC TABLET PO SCH (09:54)
[2022-05-20] MEDS: OMEPRAZOLE 20MG CAP PO SCH (09:54)
[2022-05-20] MEDS: BENZTROPINE 1 MG TAB PO SCH ×2 (09:54→19:59)
[2022-05-20] MEDS: DICLOFENAC EPOLAMINE 1.3% PATCH TOP SCH ×2 (09:55→19:59)
[2022-05-20] MEDS: DIMETHICONE 2% OINTMENT(VANICREAM) 70GM TUBE TOP SCH ×2 (09:55→19:59)
[2022-05-20 10:13] LABS: RBC, URINE NONE SEEN /hpf (0-3); SQUAMOUS EPITHELIAL CELL URINE SMALL AMOUNT /hpf (SMALL AMT)
[2022-05-20 10:14] LABS: BACTERIA, URINE SMALL AMOUNT; HYALINE CAST, URINE NONE SEEN /lpf (0-1)
[2022-05-20] MEDS: IBUPROFEN 400MG TAB PO PRN (14:20)
[2022-05-20 17:44] VITALS: BP 144/86
[2022-05-20] MEDS: QUEtiapine FUMARATE 200 MG TAB PO SCH (19:59)
[2022-05-21 06:16] VITALS: BP 144/65
[2022-05-21] MEDS: DOCUSATE SODIUM 100MG CAPSULE PO SCH ×2 (09:18→20:00)
[2022-05-21] MEDS: DIMETHICONE 2% OINTMENT(VANICREAM) 70GM TUBE TOP SCH ×2 (09:18→20:01)
[2022-05-21] MEDS: DICLOFENAC EPOLAMINE 1.3% PATCH TOP SCH ×2 (09:18→20:04)
[2022-05-21] MEDS: TOPIRAMATE (TopAMAX) 100 MG TAB PO SCH ×2 (09:19→20:00)
[2022-05-21] MEDS: OMEPRAZOLE 20MG CAP PO SCH (09:19)
[2022-05-21] MEDS: ASPIRIN 81MG ENTERIC TABLET PO SCH (09:19)
[2022-05-21] MEDS: BENZTROPINE 1 MG TAB PO SCH ×2 (09:19→20:00)
[2022-05-21] MEDS: ENOXAPARIN 40MG/0.4ML SYRINGE (J1650 PER 10MG) SC SCH (09:19)
[2022-05-21 10:05] LABS: HEMATOCRIT 35.9 % (36.0-47.0); HEMOGLOBIN 11.5 g/dl (12.0-15.5); MEAN CORPUSCULAR HEMOGLOBIN 29.3 pg (27.0-33.0); MEAN CORPUSCULAR VOLUME 91.6 fl (80.0-96.0); PLATELET COUNT, AUTOMATED 285 10^3/uL (150-450); RED BLOOD COUNT 3.92 10^6/uL (4.00-5.40); WHITE BLOOD COUNT 7.3 10^3/uL (4.0-10.0)
[2022-05-21] MEDS: IBUPROFEN 400MG TAB PO PRN (10:48)
[2022-05-21 16:00] VITALS: BP 142/88
[2022-05-21] MEDS: QUEtiapine FUMARATE 200 MG TAB PO SCH (20:00)
[2022-05-22 06:18] VITALS: BP 142/67
[2022-05-22] MEDS: DICLOFENAC EPOLAMINE 1.3% PATCH TOP SCH ×3 (09:00→20:19)
[2022-05-22] MEDS: DIMETHICONE 2% OINTMENT(VANICREAM) 70GM TUBE TOP SCH ×3 (09:00→20:18)
[2022-05-22] MEDS: ENOXAPARIN 40MG/0.4ML SYRINGE (J1650 PER 10MG) SC SCH (09:12)
[2022-05-22] MEDS: ASPIRIN 81MG ENTERIC TABLET PO SCH (09:12)
[2022-05-22] MEDS: DOCUSATE SODIUM 100MG CAPSULE PO SCH ×2 (09:12→20:19)
[2022-05-22] MEDS: TOPIRAMATE (TopAMAX) 100 MG TAB PO SCH ×2 (09:12→20:19)
[2022-05-22] MEDS: OMEPRAZOLE 20MG CAP PO SCH (09:13)
[2022-05-22] MEDS: BENZTROPINE 1 MG TAB PO SCH ×2 (09:13→20:19)
[2022-05-22] MEDS ORDERED: ARIPiprazole MONOHYDRATE 400 MG INJ (ABILIFY)(FREE PSY INPT ONLY) IM ONE (13:00)
[2022-05-22 18:09] VITALS: BP 150/84
[2022-05-22] MEDS: QUEtiapine FUMARATE 200 MG TAB PO SCH (20:19)
[2022-05-23 06:22] VITALS: BP 133/62
[2022-05-23] MEDS: DICLOFENAC EPOLAMINE 1.3% PATCH TOP SCH ×2 (09:00→20:03)
[2022-05-23] MEDS: DIMETHICONE 2% OINTMENT(VANICREAM) 70GM TUBE TOP SCH ×2 (09:00→20:03)
[2022-05-23] MEDS: TOPIRAMATE (TopAMAX) 100 MG TAB PO SCH ×2 (09:18→20:03)
[2022-05-23] MEDS: OMEPRAZOLE 20MG CAP PO SCH (09:18)
[2022-05-23] MEDS: ASPIRIN 81MG ENTERIC TABLET PO SCH (09:18)
[2022-05-23] MEDS: BENZTROPINE 1 MG TAB PO SCH ×2 (09:18→20:03)
[2022-05-23] MEDS: DOCUSATE SODIUM 100MG CAPSULE PO SCH ×2 (09:18→20:03)
[2022-05-23] MEDS: ENOXAPARIN 40MG/0.4ML SYRINGE (J1650 PER 10MG) SC SCH (09:19)
[2022-05-23 17:35] VITALS: BP 156/81
[2022-05-23] MEDS: QUEtiapine FUMARATE 200 MG TAB PO SCH (20:03)
[2022-05-24 07:30] LABS: HEMATOCRIT 34.1 % (36.0-47.0); HEMOGLOBIN 11.2 g/dl (12.0-15.5); MEAN CORPUSCULAR HEMOGLOBIN 29.4 pg (27.0-33.0); MEAN CORPUSCULAR HGB CONC 32.8 g/dl (32.0-36.5); MEAN CORPUSCULAR VOLUME 89.5 fl (80.0-96.0); PLATELET COUNT, AUTOMATED 249 10^3/uL (150-450); RED BLOOD COUNT 3.81 10^6/uL (4.00-5.40); WHITE BLOOD COUNT 7.3 10^3/uL (4.0-10.0)
[2022-05-24 07:37] VITALS: BP 148/72
[2022-05-24] MEDS: ENOXAPARIN 40MG/0.4ML SYRINGE (J1650 PER 10MG) SC SCH (09:00)
[2022-05-24] MEDS: DIMETHICONE 2% OINTMENT(VANICREAM) 70GM TUBE TOP SCH ×2 (09:00→20:02)
[2022-05-24] MEDS: DICLOFENAC EPOLAMINE 1.3% PATCH TOP SCH ×2 (09:00→20:02)
[2022-05-24] MEDS: TOPIRAMATE (TopAMAX) 100 MG TAB PO SCH ×2 (09:17→20:00)
[2022-05-24] MEDS: BENZTROPINE 1 MG TAB PO SCH ×2 (09:18→20:00)
[2022-05-24] MEDS: ASPIRIN 81MG ENTERIC TABLET PO SCH (09:18)
[2022-05-24] MEDS: DOCUSATE SODIUM 100MG CAPSULE PO SCH ×2 (09:18→20:00)
[2022-05-24] MEDS: OMEPRAZOLE 20MG CAP PO SCH (09:18)
[2022-05-24] MEDS: CEPACOL LOZENGE PO PRN (13:33)
[2022-05-24 16:00] VITALS: BP 148/90
[2022-05-24] MEDS: QUEtiapine FUMARATE 200 MG TAB PO SCH (20:00)
[2022-05-25] MEDS: fluPHENAZine 5MG TABLET PO SCH ×2 (09:00→20:55)
[2022-05-25] MEDS: ENOXAPARIN 40MG/0.4ML SYRINGE (J1650 PER 10MG) SC SCH (09:00)
[2022-05-25] MEDS: OMEPRAZOLE 20MG CAP PO SCH (09:00)
[2022-05-25] MEDS ORDERED: ARIPiprazole 10 MG TAB PO SCH (09:00)
[2022-05-25] MEDS: BENZTROPINE 1 MG TAB PO SCH ×2 (09:00→20:55)
[2022-05-25] MEDS: DICLOFENAC EPOLAMINE 1.3% PATCH TOP SCH ×2 (09:00→20:52)
[2022-05-25] MEDS: DOCUSATE SODIUM 100MG CAPSULE PO SCH ×2 (09:00→20:55)
[2022-05-25] MEDS: DIMETHICONE 2% OINTMENT(VANICREAM) 70GM TUBE TOP SCH ×2 (09:00→20:52)
[2022-05-25] MEDS: TOPIRAMATE (TopAMAX) 100 MG TAB PO SCH ×2 (09:39→20:55)
[2022-05-25] MEDS: ASPIRIN 81MG ENTERIC TABLET PO SCH (09:40)
[2022-05-25] MEDS: CEPACOL LOZENGE PO PRN (10:15)
[2022-05-25 14:05] VITALS: BP 160/98
[2022-05-25 18:37] LABS: ALBUMIN 3.3 GM/DL (3.2-5.2); BILIRUBIN,TOTAL 0.2 MG/DL (0.2-1.0); CALCIUM LEVEL 9.4 MG/DL (8.8-10.2); CREATININE FOR GFR 1.06 MG/DL (0.55-1.30); GLOMERULAR FILTRATION RATE 56.1 (>45); TOTAL PROTEIN 6.6 GM/DL (6.4-8.2)
[2022-05-25] MEDS: QUEtiapine FUMARATE 200 MG TAB PO SCH (20:55)
[2022-05-26 06:29] VITALS: BP 174/81
[2022-05-26 06:48] VITALS: BP 180/98
[2022-05-26] MEDS ORDERED: **hydrALAZINE** 10 MG TAB PO PRN (08:35)
[2022-05-26 08:42] VITALS: BP 152/82
[2022-05-26] MEDS: DOCUSATE SODIUM 100MG CAPSULE PO SCH ×2 (08:45→21:00)
[2022-05-26] MEDS: TOPIRAMATE (TopAMAX) 100 MG TAB PO SCH ×2 (08:46→21:11)
[2022-05-26] MEDS: fluPHENAZine 5MG TABLET PO SCH ×2 (08:46→21:11)
[2022-05-26] MEDS: ASPIRIN 81MG ENTERIC TABLET PO SCH (08:46)
[2022-05-26] MEDS: OMEPRAZOLE 20MG CAP PO SCH (08:46)
[2022-05-26] MEDS: BENZTROPINE 1 MG TAB PO SCH ×2 (08:46→21:10)
[2022-05-26] MEDS: ENOXAPARIN 40MG/0.4ML SYRINGE (J1650 PER 10MG) SC SCH (08:47)
[2022-05-26] MEDS ORDERED: lisinopriL 5 MG TAB PO SCH (09:00)
[2022-05-26] MEDS: DIMETHICONE 2% OINTMENT(VANICREAM) 70GM TUBE TOP SCH ×2 (09:00→21:00)
[2022-05-26] MEDS: DICLOFENAC EPOLAMINE 1.3% PATCH TOP SCH ×2 (09:00→21:00)
[2022-05-26] MEDS ORDERED: fluPHENAZine 5MG TABLET PO PRN (10:00)
[2022-05-26 15:45] VITALS: BP 142/88
[2022-05-26] MEDS: PILL CUTTER 1 EACH XX PRN (21:10)
[2022-05-26] MEDS: QUEtiapine FUMARATE 200 MG TAB PO SCH (21:11)
[2022-05-27 06:21] VITALS: BP 144/80
[2022-05-27] MEDS: DIMETHICONE 2% OINTMENT(VANICREAM) 70GM TUBE TOP SCH ×3 (09:00→21:22)
[2022-05-27] MEDS: DICLOFENAC EPOLAMINE 1.3% PATCH TOP SCH ×4 (09:00→21:29)
[2022-05-27 10:09] LABS: HEMATOCRIT 33.6 % (36.0-47.0); HEMOGLOBIN 10.8 g/dl (12.0-15.5); MEAN CORPUSCULAR HEMOGLOBIN 29.6 pg (27.0-33.0); MEAN CORPUSCULAR HGB CONC 32.1 g/dl (32.0-36.5); MEAN CORPUSCULAR VOLUME 92.1 fl (80.0-96.0); PLATELET COUNT, AUTOMATED 222 10^3/uL (150-450); RED BLOOD COUNT 3.65 10^6/uL (4.00-5.40); WHITE BLOOD COUNT 7.8 10^3/uL (4.0-10.0)
[2022-05-27] MEDS: TOPIRAMATE (TopAMAX) 100 MG TAB PO SCH ×3 (10:29→21:29)
[2022-05-27] MEDS: DOCUSATE SODIUM 100MG CAPSULE PO SCH ×3 (10:30→21:29)
[2022-05-27] MEDS: fluPHENAZine 5MG TABLET PO SCH ×3 (10:30→21:24)
[2022-05-27] MEDS: OMEPRAZOLE 20MG CAP PO SCH (10:30)
[2022-05-27] MEDS: lisinopriL 5 MG TAB PO SCH (10:30)
[2022-05-27] MEDS: ASPIRIN 81MG ENTERIC TABLET PO SCH (10:30)
[2022-05-27] MEDS: BENZTROPINE 1 MG TAB PO SCH ×3 (10:31→21:28)
[2022-05-27] MEDS ORDERED: TUBERCULIN PPD 5 UNITS/0.1 ML ID ONE (13:00)
[2022-05-27 18:23] VITALS: BP 126/72
[2022-05-27] MEDS: QUEtiapine FUMARATE 200 MG TAB PO SCH (21:23)
[2022-05-28 06:27] VITALS: BP 110/56
[2022-05-28] MEDS: TOPIRAMATE (TopAMAX) 100 MG TAB PO SCH ×2 (09:48→20:54)
[2022-05-28] MEDS: ASPIRIN 81MG ENTERIC TABLET PO SCH (09:48)
[2022-05-28] MEDS: fluPHENAZine 5MG TABLET PO SCH ×3 (09:49→20:55)
[2022-05-28] MEDS: BENZTROPINE 1 MG TAB PO SCH ×2 (09:50→20:55)
[2022-05-28] MEDS: OMEPRAZOLE 20MG CAP PO SCH (09:50)
[2022-05-28] MEDS: lisinopriL 5 MG TAB PO SCH (09:50)
[2022-05-28] MEDS: DOCUSATE SODIUM 100MG CAPSULE PO SCH ×2 (09:50→20:55)
[2022-05-28] MEDS: PILL CUTTER 1 EACH XX PRN (09:51)
[2022-05-28] MEDS: DICLOFENAC EPOLAMINE 1.3% PATCH TOP SCH ×2 (09:51→20:54)
[2022-05-28] MEDS: DIMETHICONE 2% OINTMENT(VANICREAM) 70GM TUBE TOP SCH ×2 (09:51→20:56)
[2022-05-28 16:13] VITALS: BP 138/88
[2022-05-28] MEDS: QUEtiapine FUMARATE 200 MG TAB PO SCH (20:55)
[2022-05-28] MEDS ORDERED: fluPHENAZine 5MG TABLET PO SCH (21:00)
[2022-05-29 06:13] VITALS: BP 132/60
[2022-05-29] MEDS: DICLOFENAC EPOLAMINE 1.3% PATCH TOP SCH ×2 (09:00→21:00)
[2022-05-29] MEDS: DIMETHICONE 2% OINTMENT(VANICREAM) 70GM TUBE TOP SCH ×2 (09:00→21:00)
[2022-05-29] MEDS: OMEPRAZOLE 20MG CAP PO SCH (09:37)
[2022-05-29] MEDS: lisinopriL 5 MG TAB PO SCH (09:37)
[2022-05-29] MEDS: ASPIRIN 81MG ENTERIC TABLET PO SCH (09:37)
[2022-05-29] MEDS: BENZTROPINE 1 MG TAB PO SCH ×2 (09:37→22:11)
[2022-05-29] MEDS: DOCUSATE SODIUM 100MG CAPSULE PO SCH ×2 (09:38→22:11)
[2022-05-29] MEDS: fluPHENAZine 5MG TABLET PO SCH ×3 (09:38→22:11)
[2022-05-29] MEDS: TOPIRAMATE (TopAMAX) 100 MG TAB PO SCH ×2 (09:38→22:11)
[2022-05-29] MEDS: PILL CUTTER 1 EACH XX PRN ×2 (09:39→15:33)
[2022-05-29] MEDS ORDERED: PPD DOCUMENTATION ENTRY MISC XX ONE (13:00)
[2022-05-29 16:07] VITALS: BP 134/80
[2022-05-29] MEDS: QUEtiapine FUMARATE 200 MG TAB PO SCH (22:11)
[2022-05-29] MEDS: IBUPROFEN 400MG TAB PO PRN (22:13)
[2022-05-30 06:36] VITALS: BP 142/78
[2022-05-30] MEDS: DIMETHICONE 2% OINTMENT(VANICREAM) 70GM TUBE TOP SCH ×2 (09:00→20:10)
[2022-05-30] MEDS: DICLOFENAC EPOLAMINE 1.3% PATCH TOP SCH ×2 (09:00→20:10)
[2022-05-30] MEDS: PILL CUTTER 1 EACH XX PRN (09:11)
[2022-05-30] MEDS: BENZTROPINE 1 MG TAB PO SCH ×2 (09:12→20:08)
[2022-05-30] MEDS: OMEPRAZOLE 20MG CAP PO SCH (09:12)
[2022-05-30] MEDS: ASPIRIN 81MG ENTERIC TABLET PO SCH (09:12)
[2022-05-30] MEDS: TOPIRAMATE (TopAMAX) 100 MG TAB PO SCH ×2 (09:12→20:08)
[2022-05-30] MEDS: DOCUSATE SODIUM 100MG CAPSULE PO SCH ×2 (09:12→20:09)
[2022-05-30] MEDS: fluPHENAZine 5MG TABLET PO SCH ×3 (09:13→20:08)
[2022-05-30 16:11] VITALS: BP 139/72
[2022-05-30] MEDS: QUEtiapine FUMARATE 200 MG TAB PO SCH (20:08)
[2022-05-31 06:14] VITALS: BP 148/92
[2022-05-31] MEDS: DOCUSATE SODIUM 100MG CAPSULE PO SCH ×2 (10:19→21:00)
[2022-05-31] MEDS: ASPIRIN 81MG ENTERIC TABLET PO SCH (10:19)
[2022-05-31] MEDS: OMEPRAZOLE 20MG CAP PO SCH (10:19)
[2022-05-31] MEDS: TOPIRAMATE (TopAMAX) 100 MG TAB PO SCH ×2 (10:19→22:19)
[2022-05-31] MEDS: fluPHENAZine 5MG TABLET PO SCH ×3 (10:20→22:19)
[2022-05-31] MEDS: BENZTROPINE 1 MG TAB PO SCH ×2 (10:20→22:18)
[2022-05-31] MEDS: DIMETHICONE 2% OINTMENT(VANICREAM) 70GM TUBE TOP SCH ×2 (10:20→21:00)
[2022-05-31] MEDS: DICLOFENAC EPOLAMINE 1.3% PATCH TOP SCH ×2 (10:22→21:00)
[2022-05-31 17:27] VITALS: BP 130/80
[2022-05-31 21:56] VITALS: BP 160/92
[2022-05-31] MEDS: PILL CUTTER 1 EACH XX PRN (22:18)
[2022-05-31] MEDS: QUEtiapine FUMARATE 200 MG TAB PO SCH (22:19)
[2022-05-31 22:29] LABS: BASO % 0.5 % (0.0-1.0); EOS # 0.2 10^3/uL (0.0-0.5); HEMATOCRIT 33.5 % (36.0-47.0); HEMOGLOBIN 11.1 g/dl (12.0-15.5); LYMPH # 2.5 10^3/uL (1.5-5.0); LYMPH % 34.3 % (24.0-44.0); MEAN CORPUSCULAR HEMOGLOBIN 29.5 pg (27.0-33.0); MEAN CORPUSCULAR HGB CONC 33.1 g/dl (32.0-36.5); MEAN CORPUSCULAR VOLUME 89.1 fl (80.0-96.0); MONO # 0.5 10^3/uL (0.0-0.8); MONO % 6.6 % (2.0-8.0); NEUTROPHILS # 4.1 10^3/uL (1.5-8.5); NEUTROPHILS % 55.3 % (36.0-66.0); PLATELET COUNT, AUTOMATED 241 10^3/uL (150-450); RED BLOOD COUNT 3.76 10^6/uL (4.00-5.40); WHITE BLOOD COUNT 7.4 10^3/uL (4.0-10.0)
[2022-05-31 22:59] LABS: CK-MB VALUE MASS 1.1 NG/ML (<3.6); MB/CK RELATIVE INDEX 2.97 (< OR =4)
[2022-05-31 23:03] LABS: BLOOD UREA NITROGEN 23 MG/DL (7-18); CALCIUM LEVEL 9.5 MG/DL (8.8-10.2); CARBON DIOXIDE LEVEL 23 MEQ/L (21-32); CHLORIDE LEVEL 113 MEQ/L (98-107); CREATININE FOR GFR 0.88 MG/DL (0.55-1.30); GLOMERULAR FILTRATION RATE > 60.0 (>45); GLUCOSE, FASTING 111 MG/DL (70-100); NT-PRO BNP 70 PG/ML (<125); POTASSIUM SERUM 3.8 MEQ/L (3.5-5.1); SODIUM LEVEL 141 MEQ/L (136-145)
[2022-06-01 06:53] VITALS: BP 137/65
[2022-06-01] MEDS: ASPIRIN 81MG ENTERIC TABLET PO SCH (10:26)
[2022-06-01] MEDS: BENZTROPINE 1 MG TAB PO SCH ×2 (10:26→20:29)
[2022-06-01] MEDS: OMEPRAZOLE 20MG CAP PO SCH (10:27)
[2022-06-01] MEDS: fluPHENAZine 5MG TABLET PO SCH ×3 (10:27→20:29)
[2022-06-01] MEDS: TOPIRAMATE (TopAMAX) 100 MG TAB PO SCH ×2 (10:28→20:29)
[2022-06-01] MEDS: DOCUSATE SODIUM 100MG CAPSULE PO SCH ×2 (10:35→20:29)
[2022-06-01] MEDS: DIMETHICONE 2% OINTMENT(VANICREAM) 70GM TUBE TOP SCH ×2 (10:36→20:36)
[2022-06-01] MEDS: DICLOFENAC EPOLAMINE 1.3% PATCH TOP SCH ×2 (10:36→20:36)
[2022-06-01] MEDS: PILL CUTTER 1 EACH XX PRN (16:31)
[2022-06-01 18:03] VITALS: BP 152/72
[2022-06-01] MEDS: QUEtiapine FUMARATE 200 MG TAB PO SCH (20:29)
[2022-06-02 06:42] VITALS: BP 124/60
[2022-06-02] MEDS: OMEPRAZOLE 20MG CAP PO SCH (09:00)
[2022-06-02] MEDS: DIMETHICONE 2% OINTMENT(VANICREAM) 70GM TUBE TOP SCH ×2 (09:00→20:59)
[2022-06-02] MEDS: DOCUSATE SODIUM 100MG CAPSULE PO SCH ×2 (09:00→20:57)
[2022-06-02] MEDS: DICLOFENAC EPOLAMINE 1.3% PATCH TOP SCH ×2 (09:00→20:59)
[2022-06-02] MEDS: fluPHENAZine 5MG TABLET PO SCH ×3 (09:00→20:58)
[2022-06-02] MEDS: BENZTROPINE 1 MG TAB PO SCH ×2 (10:00→20:58)
[2022-06-02] MEDS: TOPIRAMATE (TopAMAX) 100 MG TAB PO SCH ×2 (10:01→20:58)
[2022-06-02] MEDS: ASPIRIN 81MG ENTERIC TABLET PO SCH (10:01)
[2022-06-02] MEDS: PILL CUTTER 1 EACH XX PRN (10:02)
[2022-06-02 18:08] VITALS: BP 136/68
[2022-06-02] MEDS: IBUPROFEN 400MG TAB PO PRN (20:57)
[2022-06-02] MEDS: QUEtiapine FUMARATE 200 MG TAB PO SCH (20:57)
[2022-06-03 06:17] VITALS: BP 128/59
[2022-06-03] MEDS: DOCUSATE SODIUM 100MG CAPSULE PO SCH ×2 (08:42→21:00)
[2022-06-03] MEDS: fluPHENAZine 5MG TABLET PO SCH (08:43)
[2022-06-03] MEDS: ASPIRIN 81MG ENTERIC TABLET PO SCH (08:43)
[2022-06-03] MEDS: BENZTROPINE 1 MG TAB PO SCH ×2 (08:43→21:20)
[2022-06-03] MEDS: TOPIRAMATE (TopAMAX) 100 MG TAB PO SCH ×2 (08:43→21:20)
[2022-06-03] MEDS: PILL CUTTER 1 EACH XX PRN (08:44)
[2022-06-03] MEDS: OMEPRAZOLE 20MG CAP PO SCH ×2 (08:53→10:28)
[2022-06-03] MEDS: DICLOFENAC EPOLAMINE 1.3% PATCH TOP SCH ×2 (08:53→21:00)
[2022-06-03] MEDS: DIMETHICONE 2% OINTMENT(VANICREAM) 70GM TUBE TOP SCH ×2 (08:53→21:00)
[2022-06-03] MEDS ORDERED: OLANZapine 2.5MG TABLET PO PRN (10:30)
[2022-06-03 18:01] VITALS: BP 136/88
[2022-06-03] MEDS ORDERED: LORazepam 1 MG TAB PO ONE (18:55)
[2022-06-03] MEDS: QUEtiapine FUMARATE 200 MG TAB PO SCH (21:20)
[2022-06-03] MEDS: PALIPERIDONE 3MG ER TAB (INVEGA) PO SCH (21:20)
[2022-06-04 06:00] VITALS: BP 130/68
[2022-06-04] MEDS: OMEPRAZOLE 20MG CAP PO SCH (08:10)
[2022-06-04] MEDS: PALIPERIDONE 3MG ER TAB (INVEGA) PO SCH ×2 (08:10→20:37)
[2022-06-04] MEDS: TOPIRAMATE (TopAMAX) 100 MG TAB PO SCH ×2 (08:10→20:37)
[2022-06-04] MEDS: DICLOFENAC EPOLAMINE 1.3% PATCH TOP SCH ×2 (08:11→20:37)
[2022-06-04] MEDS: ASPIRIN 81MG ENTERIC TABLET PO SCH (08:11)
[2022-06-04] MEDS: BENZTROPINE 1 MG TAB PO SCH ×2 (08:11→20:37)
[2022-06-04] MEDS: DIMETHICONE 2% OINTMENT(VANICREAM) 70GM TUBE TOP SCH ×2 (08:11→20:37)
[2022-06-04] MEDS: DOCUSATE SODIUM 100MG CAPSULE PO SCH ×2 (08:11→20:37)
[2022-06-04] MEDS ORDERED: LORazepam 1 MG TAB PO ONE (11:50)
[2022-06-04 18:15] VITALS: BP 148/96
[2022-06-04] MEDS: QUEtiapine FUMARATE 200 MG TAB PO SCH (20:37)
[2022-06-05] MEDS: DIMETHICONE 2% OINTMENT(VANICREAM) 70GM TUBE TOP SCH ×2 (10:17→20:26)
[2022-06-05] MEDS: DICLOFENAC EPOLAMINE 1.3% PATCH TOP SCH ×2 (10:17→20:26)
[2022-06-05] MEDS: ASPIRIN 81MG ENTERIC TABLET PO SCH (10:55)
[2022-06-05] MEDS: DOCUSATE SODIUM 100MG CAPSULE PO SCH ×2 (10:55→20:25)
[2022-06-05] MEDS: PALIPERIDONE 3MG ER TAB (INVEGA) PO SCH ×2 (10:56→20:25)
[2022-06-05] MEDS: BENZTROPINE 1 MG TAB PO SCH ×2 (10:56→20:25)
[2022-06-05] MEDS: TOPIRAMATE (TopAMAX) 100 MG TAB PO SCH ×2 (10:56→20:25)
[2022-06-05] MEDS: OMEPRAZOLE 20MG CAP PO SCH (10:56)
[2022-06-05 18:09] VITALS: BP 140/78
[2022-06-05] MEDS: QUEtiapine FUMARATE 200 MG TAB PO SCH (20:25)
[2022-06-06 06:57] VITALS: BP 110/53
[2022-06-06] MEDS: DOCUSATE SODIUM 100MG CAPSULE PO SCH ×3 (09:00→20:17)
[2022-06-06] MEDS: DIMETHICONE 2% OINTMENT(VANICREAM) 70GM TUBE TOP SCH ×2 (09:00→20:12)
[2022-06-06] MEDS: DICLOFENAC EPOLAMINE 1.3% PATCH TOP SCH ×2 (09:00→20:11)
[2022-06-06] MEDS: PALIPERIDONE 3MG ER TAB (INVEGA) PO SCH ×2 (09:15→20:11)
[2022-06-06] MEDS: OMEPRAZOLE 20MG CAP PO SCH (09:15)
[2022-06-06] MEDS: BENZTROPINE 1 MG TAB PO SCH ×2 (09:15→20:11)
[2022-06-06] MEDS: TOPIRAMATE (TopAMAX) 100 MG TAB PO SCH ×2 (09:15→20:11)
[2022-06-06] MEDS: ASPIRIN 81MG ENTERIC TABLET PO SCH (09:15)
[2022-06-06 18:13] VITALS: BP 140/80
[2022-06-06] MEDS: QUEtiapine FUMARATE 200 MG TAB PO SCH (20:11)
[2022-06-07 06:19] VITALS: BP 131/69
[2022-06-07] MEDS: DIMETHICONE 2% OINTMENT(VANICREAM) 70GM TUBE TOP SCH ×2 (09:00→20:20)
[2022-06-07] MEDS: TOPIRAMATE (TopAMAX) 100 MG TAB PO SCH (09:00)
[2022-06-07] MEDS: DICLOFENAC EPOLAMINE 1.3% PATCH TOP SCH ×2 (09:00→20:20)
[2022-06-07] MEDS: BENZTROPINE 1 MG TAB PO SCH (09:00)
[2022-06-07] MEDS: DOCUSATE SODIUM 100MG CAPSULE PO SCH ×2 (09:00→20:18)
[2022-06-07] MEDS: OMEPRAZOLE 20MG CAP PO SCH (09:40)
[2022-06-07] MEDS: PALIPERIDONE 3MG ER TAB (INVEGA) PO SCH ×2 (09:40→20:19)
[2022-06-07] MEDS: ASPIRIN 81MG ENTERIC TABLET PO SCH (09:40)
[2022-06-07 16:25] VITALS: BP 152/78
[2022-06-07] MEDS: TOPIRAMATE (TopAMAX) 25 MG TAB PO SCH (20:18)
[2022-06-07] MEDS: QUEtiapine FUMARATE 200 MG TAB PO SCH (20:19)
[2022-06-07] MEDS: CEPACOL LOZENGE PO PRN (21:24)
[2022-06-08 06:23] VITALS: BP 125/60
[2022-06-08] MEDS: DICLOFENAC EPOLAMINE 1.3% PATCH TOP SCH ×2 (09:00→20:53)
[2022-06-08] MEDS: DIMETHICONE 2% OINTMENT(VANICREAM) 70GM TUBE TOP SCH ×2 (09:00→20:53)
[2022-06-08] MEDS: TOPIRAMATE (TopAMAX) 25 MG TAB PO SCH ×2 (09:42→21:02)
[2022-06-08] MEDS: ASPIRIN 81MG ENTERIC TABLET PO SCH (09:42)
[2022-06-08] MEDS: DOCUSATE SODIUM 100MG CAPSULE PO SCH ×2 (09:42→21:00)
[2022-06-08] MEDS: OMEPRAZOLE 20MG CAP PO SCH (09:42)
[2022-06-08] MEDS: PALIPERIDONE 3MG ER TAB (INVEGA) PO SCH (09:43)
[2022-06-08] MEDS ORDERED: PALIPERIDONE PAL 234MG/1.5ML INJ (INVEGA)(FREE PSY INPT ONLY) IM ONE (14:00)
[2022-06-08 16:25] VITALS: BP 138/66
[2022-06-08] MEDS: QUEtiapine FUMARATE 200 MG TAB PO SCH (21:02)
[2022-06-08] MEDS: CIPRODEX OTIC SUSP 7.5ML AD SCH (21:03)
[2022-06-09 06:31] VITALS: BP 122/80
[2022-06-09] MEDS: DICLOFENAC EPOLAMINE 1.3% PATCH TOP SCH ×2 (09:00→21:00)
[2022-06-09] MEDS: DIMETHICONE 2% OINTMENT(VANICREAM) 70GM TUBE TOP SCH ×2 (09:00→21:00)
[2022-06-09] MEDS: CIPRODEX OTIC SUSP 7.5ML AD SCH ×2 (09:30→21:00)
[2022-06-09] MEDS: DOCUSATE SODIUM 100MG CAPSULE PO SCH ×2 (09:32→21:00)
[2022-06-09] MEDS: OMEPRAZOLE 20MG CAP PO SCH (09:32)
[2022-06-09] MEDS: TOPIRAMATE (TopAMAX) 25 MG TAB PO SCH ×2 (09:32→21:25)
[2022-06-09] MEDS: ASPIRIN 81MG ENTERIC TABLET PO SCH (09:32)
[2022-06-09] MEDS: IBUPROFEN 400MG TAB PO PRN (09:44)
[2022-06-09] MEDS: QUEtiapine FUMARATE 200 MG TAB PO SCH (21:25)
[2022-06-10 06:41] VITALS: BP 141/65
[2022-06-10] MEDS: CIPRODEX OTIC SUSP 7.5ML AD SCH ×2 (09:00→21:00)
[2022-06-10] MEDS: DICLOFENAC EPOLAMINE 1.3% PATCH TOP SCH ×2 (09:00→21:00)
[2022-06-10] MEDS: DIMETHICONE 2% OINTMENT(VANICREAM) 70GM TUBE TOP SCH ×2 (09:00→21:00)
[2022-06-10] MEDS: DOCUSATE SODIUM 100MG CAPSULE PO SCH ×2 (09:00→21:00)
[2022-06-10] MEDS: ASPIRIN 81MG ENTERIC TABLET PO SCH (09:33)
[2022-06-10] MEDS: TOPIRAMATE (TopAMAX) 25 MG TAB PO SCH ×2 (09:33→21:15)
[2022-06-10] MEDS: OMEPRAZOLE 20MG CAP PO SCH (09:33)
[2022-06-10 18:23] VITALS: BP 138/88
[2022-06-10] MEDS: QUEtiapine FUMARATE 200 MG TAB PO SCH (21:00)
[2022-06-11 07:04] VITALS: BP 124/66
[2022-06-11] MEDS: TOPIRAMATE (TopAMAX) 25 MG TAB PO SCH ×2 (08:58→20:51)
[2022-06-11] MEDS: OMEPRAZOLE 20MG CAP PO SCH (08:58)
[2022-06-11] MEDS: DOCUSATE SODIUM 100MG CAPSULE PO SCH ×2 (08:58→20:53)
[2022-06-11] MEDS: ASPIRIN 81MG ENTERIC TABLET PO SCH (08:58)
[2022-06-11] MEDS: CIPRODEX OTIC SUSP 7.5ML AD SCH ×2 (09:00→20:52)
[2022-06-11] MEDS: DICLOFENAC EPOLAMINE 1.3% PATCH TOP SCH ×2 (09:00→20:52)
[2022-06-11] MEDS: DIMETHICONE 2% OINTMENT(VANICREAM) 70GM TUBE TOP SCH ×2 (09:00→20:52)
[2022-06-11] MEDS: QUEtiapine FUMARATE 200 MG TAB PO SCH (20:51)
[2022-06-12 06:33] VITALS: BP 138/63
[2022-06-12] MEDS: DIMETHICONE 2% OINTMENT(VANICREAM) 70GM TUBE TOP SCH ×2 (09:00→21:00)
[2022-06-12] MEDS: DOCUSATE SODIUM 100MG CAPSULE PO SCH ×2 (09:00→21:00)
[2022-06-12] MEDS: OMEPRAZOLE 20MG CAP PO SCH (09:00)
[2022-06-12] MEDS: ASPIRIN 81MG ENTERIC TABLET PO SCH (09:00)
[2022-06-12] MEDS: TOPIRAMATE (TopAMAX) 25 MG TAB PO SCH ×2 (09:00→21:00)
[2022-06-12] MEDS: DICLOFENAC EPOLAMINE 1.3% PATCH TOP SCH ×2 (09:00→21:00)
[2022-06-12] MEDS: CIPRODEX OTIC SUSP 7.5ML AD SCH ×2 (09:00→21:00)
[2022-06-12 16:49] VITALS: BP 128/80
[2022-06-12] MEDS: QUEtiapine FUMARATE 200 MG TAB PO SCH (21:00)
[2022-06-13 06:44] VITALS: BP 139/75
[2022-06-13] MEDS: CIPRODEX OTIC SUSP 7.5ML AD SCH ×4 (09:00→20:57)
[2022-06-13] MEDS: DIMETHICONE 2% OINTMENT(VANICREAM) 70GM TUBE TOP SCH ×2 (09:00→21:00)
[2022-06-13] MEDS: DICLOFENAC EPOLAMINE 1.3% PATCH TOP SCH ×2 (09:00→21:00)
[2022-06-13] MEDS: ASPIRIN 81MG ENTERIC TABLET PO SCH (09:11)
[2022-06-13] MEDS: OMEPRAZOLE 20MG CAP PO SCH (09:11)
[2022-06-13] MEDS: TOPIRAMATE (TopAMAX) 25 MG TAB PO SCH ×2 (09:11→20:54)
[2022-06-13] MEDS: DOCUSATE SODIUM 100MG CAPSULE PO SCH ×2 (09:11→20:56)
[2022-06-13 16:31] VITALS: BP 150/70
[2022-06-13] MEDS: ACETAMINOPHEN TAB 650MG DOSE (2X325MG) PO PRN (19:40)
[2022-06-13] MEDS: MOM 30ML SUSPENSION UDC PO PRN (20:54)
[2022-06-13] MEDS: QUEtiapine FUMARATE 200 MG TAB PO SCH (20:54)
[2022-06-14 06:54] VITALS: BP 120/57
[2022-06-14] MEDS: DIMETHICONE 2% OINTMENT(VANICREAM) 70GM TUBE TOP SCH ×2 (09:00→21:00)
[2022-06-14] MEDS: CIPRODEX OTIC SUSP 7.5ML AD SCH ×2 (09:00→21:00)
[2022-06-14] MEDS: DICLOFENAC EPOLAMINE 1.3% PATCH TOP SCH ×2 (09:00→21:00)
[2022-06-14] MEDS: TOPIRAMATE (TopAMAX) 25 MG TAB PO SCH ×2 (09:29→21:00)
[2022-06-14] MEDS: OMEPRAZOLE 20MG CAP PO SCH (09:30)
[2022-06-14] MEDS: ASPIRIN 81MG ENTERIC TABLET PO SCH (09:30)
[2022-06-14] MEDS: DOCUSATE SODIUM 100MG CAPSULE PO SCH ×2 (09:30→21:00)
[2022-06-14 18:00] VITALS: BP 148/80
[2022-06-14] MEDS: QUEtiapine FUMARATE 200 MG TAB PO SCH (21:00)
[2022-06-15 06:33] VITALS: BP 122/66
[2022-06-15] MEDS: OMEPRAZOLE 20MG CAP PO SCH (08:18)
[2022-06-15] MEDS: TOPIRAMATE (TopAMAX) 25 MG TAB PO SCH ×2 (08:18→21:00)
[2022-06-15] MEDS: ASPIRIN 81MG ENTERIC TABLET PO SCH (08:18)
[2022-06-15] MEDS: DOCUSATE SODIUM 100MG CAPSULE PO SCH ×2 (08:18→21:00)
[2022-06-15] MEDS: DIMETHICONE 2% OINTMENT(VANICREAM) 70GM TUBE TOP SCH ×2 (08:21→21:00)
[2022-06-15] MEDS: DICLOFENAC EPOLAMINE 1.3% PATCH TOP SCH ×2 (08:21→21:00)
[2022-06-15] MEDS ORDERED: PALIPERIDONE PAL 156MG/1ML INJ(INVEGA)(FREE PSY INPT ONLY) IM ONE (09:00)
[2022-06-15] MEDS: IBUPROFEN 400MG TAB PO PRN (18:29)
[2022-06-15 18:46] VITALS: BP 128/67
[2022-06-15] MEDS: QUEtiapine FUMARATE 200 MG TAB PO SCH (21:00)
[2022-06-16] MEDS: ACETAMINOPHEN TAB 650MG DOSE (2X325MG) PO PRN (00:04)
[2022-06-16 06:51] VITALS: BP 122/60
[2022-06-16] MEDS: DIMETHICONE 2% OINTMENT(VANICREAM) 70GM TUBE TOP SCH ×2 (09:00→21:00)
[2022-06-16] MEDS: DICLOFENAC EPOLAMINE 1.3% PATCH TOP SCH ×2 (09:00→21:00)
[2022-06-16] MEDS: ASPIRIN 81MG ENTERIC TABLET PO SCH (09:00)
[2022-06-16] MEDS: OMEPRAZOLE 20MG CAP PO SCH (09:00)
[2022-06-16] MEDS: DOCUSATE SODIUM 100MG CAPSULE PO SCH ×2 (09:00→20:59)
[2022-06-16] MEDS: TOPIRAMATE (TopAMAX) 25 MG TAB PO SCH ×2 (09:01→21:00)
[2022-06-16 18:28] VITALS: BP 147/73
[2022-06-16] MEDS: QUEtiapine FUMARATE 200 MG TAB PO SCH (20:59)
[2022-06-17] MEDS: DIMETHICONE 2% OINTMENT(VANICREAM) 70GM TUBE TOP SCH ×2 (09:00→21:00)
[2022-06-17] MEDS: DICLOFENAC EPOLAMINE 1.3% PATCH TOP SCH ×2 (09:00→21:00)
[2022-06-17] MEDS: OMEPRAZOLE 20MG CAP PO SCH (11:30)
[2022-06-17] MEDS: TOPIRAMATE (TopAMAX) 25 MG TAB PO SCH ×2 (11:30→21:35)
[2022-06-17] MEDS: DOCUSATE SODIUM 100MG CAPSULE PO SCH ×2 (11:30→21:35)
[2022-06-17] MEDS: ASPIRIN 81MG ENTERIC TABLET PO SCH (11:30)
[2022-06-17 18:08] VITALS: BP 118/72
[2022-06-17] MEDS: QUEtiapine FUMARATE 200 MG TAB PO SCH (21:35)
[2022-06-18] MEDS: ASPIRIN 81MG ENTERIC TABLET PO SCH (09:55)
[2022-06-18] MEDS: TOPIRAMATE (TopAMAX) 25 MG TAB PO SCH ×2 (09:56→22:30)
[2022-06-18] MEDS: OMEPRAZOLE 20MG CAP PO SCH (10:02)
[2022-06-18] MEDS: DICLOFENAC EPOLAMINE 1.3% PATCH TOP SCH ×2 (10:03→21:00)
[2022-06-18] MEDS: DIMETHICONE 2% OINTMENT(VANICREAM) 70GM TUBE TOP SCH ×2 (10:03→21:00)
[2022-06-18] MEDS: DOCUSATE SODIUM 100MG CAPSULE PO SCH ×2 (10:03→21:00)
[2022-06-18 18:12] VITALS: BP 153/71
[2022-06-18] MEDS: QUEtiapine FUMARATE 200 MG TAB PO SCH (22:29)
[2022-06-18] MEDS: MOM 30ML SUSPENSION UDC PO PRN (22:30)
[2022-06-19 06:51] VITALS: BP 124/62
[2022-06-19] MEDS: ASPIRIN 81MG ENTERIC TABLET PO SCH (08:44)
[2022-06-19] MEDS: OMEPRAZOLE 20MG CAP PO SCH (08:44)
[2022-06-19] MEDS: TOPIRAMATE (TopAMAX) 25 MG TAB PO SCH ×2 (08:45→21:18)
[2022-06-19] MEDS: DIMETHICONE 2% OINTMENT(VANICREAM) 70GM TUBE TOP SCH ×2 (08:48→21:00)
[2022-06-19] MEDS: DOCUSATE SODIUM 100MG CAPSULE PO SCH ×2 (08:48→21:00)
[2022-06-19] MEDS: DICLOFENAC EPOLAMINE 1.3% PATCH TOP SCH ×2 (08:48→21:00)
[2022-06-19 18:30] VITALS: BP 132/70
[2022-06-19] MEDS: QUEtiapine FUMARATE 200 MG TAB PO SCH (21:19)
[2022-06-20 06:39] VITALS: BP 118/78
[2022-06-20] MEDS: DOCUSATE SODIUM 100MG CAPSULE PO SCH ×2 (09:00→21:44)
[2022-06-20] MEDS: DICLOFENAC EPOLAMINE 1.3% PATCH TOP SCH ×2 (09:00→21:00)
[2022-06-20] MEDS: DIMETHICONE 2% OINTMENT(VANICREAM) 70GM TUBE TOP SCH ×2 (09:00→21:00)
[2022-06-20] MEDS: ASPIRIN 81MG ENTERIC TABLET PO SCH (09:48)
[2022-06-20] MEDS: OMEPRAZOLE 20MG CAP PO SCH (09:48)
[2022-06-20] MEDS: TOPIRAMATE (TopAMAX) 25 MG TAB PO SCH ×2 (09:48→21:44)
[2022-06-20 18:00] VITALS: BP 124/56
[2022-06-20] MEDS: QUEtiapine FUMARATE 200 MG TAB PO SCH (21:44)
[2022-06-21 06:37] VITALS: BP 102/64
[2022-06-21] MEDS: TOPIRAMATE (TopAMAX) 25 MG TAB PO SCH ×2 (08:31→21:28)
[2022-06-21] MEDS: DIMETHICONE 2% OINTMENT(VANICREAM) 70GM TUBE TOP SCH ×2 (08:34→21:00)
[2022-06-21] MEDS: DICLOFENAC EPOLAMINE 1.3% PATCH TOP SCH ×2 (08:34→21:00)
[2022-06-21 09:27] VITALS: BP 120/78
[2022-06-21] MEDS: OMEPRAZOLE 20MG CAP PO SCH (09:31)
[2022-06-21] MEDS: DOCUSATE SODIUM 100MG CAPSULE PO SCH ×2 (09:31→21:28)
[2022-06-21] MEDS: ASPIRIN 81MG ENTERIC TABLET PO SCH (09:33)
[2022-06-21 16:26] VITALS: BP 112/78
[2022-06-21] MEDS: QUEtiapine FUMARATE 200 MG TAB PO SCH (21:28)
[2022-06-22 06:36] VITALS: BP 140/64
[2022-06-22] MEDS: DICLOFENAC EPOLAMINE 1.3% PATCH TOP SCH ×2 (08:46→21:00)
[2022-06-22] MEDS: ASPIRIN 81MG ENTERIC TABLET PO SCH (08:46)
[2022-06-22] MEDS: DOCUSATE SODIUM 100MG CAPSULE PO SCH ×2 (08:46→21:48)
[2022-06-22] MEDS: DIMETHICONE 2% OINTMENT(VANICREAM) 70GM TUBE TOP SCH ×2 (08:46→21:00)
[2022-06-22] MEDS: OMEPRAZOLE 20MG CAP PO SCH (08:46)
[2022-06-22] MEDS: TOPIRAMATE (TopAMAX) 25 MG TAB PO SCH ×2 (09:00→21:48)
[2022-06-22 16:14] VITALS: BP 136/70
[2022-06-22] MEDS: QUEtiapine FUMARATE 200 MG TAB PO SCH (21:48)
[2022-06-23 06:50] VITALS: BP 119/72
[2022-06-23] MEDS: DIMETHICONE 2% OINTMENT(VANICREAM) 70GM TUBE TOP SCH ×2 (09:00→21:00)
[2022-06-23] MEDS: ASPIRIN 81MG ENTERIC TABLET PO SCH (10:22)
[2022-06-23] MEDS: DOCUSATE SODIUM 100MG CAPSULE PO SCH ×2 (10:22→21:00)
[2022-06-23] MEDS: OMEPRAZOLE 20MG CAP PO SCH (10:22)
[2022-06-23] MEDS: TOPIRAMATE (TopAMAX) 25 MG TAB PO SCH ×2 (10:23→21:50)
[2022-06-23] MEDS: DICLOFENAC EPOLAMINE 1.3% PATCH TOP SCH ×2 (10:25→21:00)
[2022-06-23 16:33] VITALS: BP 134/78
[2022-06-23] MEDS: QUEtiapine FUMARATE 200 MG TAB PO SCH (21:50)
[2022-06-24 06:37] VITALS: BP 104/68
[2022-06-24] MEDS: OMEPRAZOLE 20MG CAP PO SCH (08:00)
[2022-06-24] MEDS: TOPIRAMATE (TopAMAX) 25 MG TAB PO SCH ×2 (08:00→21:18)
[2022-06-24] MEDS: ASPIRIN 81MG ENTERIC TABLET PO SCH (08:00)
[2022-06-24] MEDS: DOCUSATE SODIUM 100MG CAPSULE PO SCH ×2 (08:00→21:18)
[2022-06-24] MEDS: DIMETHICONE 2% OINTMENT(VANICREAM) 70GM TUBE TOP SCH ×2 (08:01→21:00)
[2022-06-24] MEDS: DICLOFENAC EPOLAMINE 1.3% PATCH TOP SCH ×2 (08:01→21:00)
[2022-06-24 18:49] VITALS: BP 110/60
[2022-06-24] MEDS: QUEtiapine FUMARATE 200 MG TAB PO SCH (21:18)
[2022-06-25 05:41] VITALS: BP 93/54
[2022-06-25] MEDS: ASPIRIN 81MG ENTERIC TABLET PO SCH (08:51)
[2022-06-25] MEDS: TOPIRAMATE (TopAMAX) 25 MG TAB PO SCH ×2 (08:51→20:13)
[2022-06-25] MEDS: OMEPRAZOLE 20MG CAP PO SCH (08:51)
[2022-06-25] MEDS: DICLOFENAC EPOLAMINE 1.3% PATCH TOP SCH ×2 (08:54→20:14)
[2022-06-25] MEDS: DOCUSATE SODIUM 100MG CAPSULE PO SCH ×2 (08:54→20:12)
[2022-06-25] MEDS: DIMETHICONE 2% OINTMENT(VANICREAM) 70GM TUBE TOP SCH ×2 (08:55→20:14)
[2022-06-25] MEDS: SERTRALINE HCL 25 MG TABLET PO SCH (12:28)
[2022-06-25] MEDS: QUEtiapine FUMARATE 50MG TAB PO SCH (20:13)
[2022-06-26] MEDS: IBUPROFEN 400MG TAB PO PRN (04:07)
[2022-06-26 06:40] VITALS: BP 110/78
[2022-06-26] MEDS: DIMETHICONE 2% OINTMENT(VANICREAM) 70GM TUBE TOP SCH ×2 (09:00→20:06)
[2022-06-26] MEDS: DICLOFENAC EPOLAMINE 1.3% PATCH TOP SCH ×2 (09:00→20:06)
[2022-06-26] MEDS: SERTRALINE HCL 25 MG TABLET PO SCH (09:04)
[2022-06-26] MEDS: TOPIRAMATE (TopAMAX) 25 MG TAB PO SCH ×2 (09:05→20:05)
[2022-06-26] MEDS: ASPIRIN 81MG ENTERIC TABLET PO SCH (09:05)
[2022-06-26] MEDS: DOCUSATE SODIUM 100MG CAPSULE PO SCH ×2 (09:05→20:05)
[2022-06-26] MEDS: OMEPRAZOLE 20MG CAP PO SCH (09:05)
[2022-06-26 16:26] VITALS: BP 136/76
[2022-06-26] MEDS: QUEtiapine FUMARATE 50MG TAB PO SCH (20:05)
[2022-06-27 06:30] VITALS: BP 118/68
[2022-06-27] MEDS: SERTRALINE HCL 25 MG TABLET PO SCH ×2 (08:19→11:20)
[2022-06-27] MEDS: TOPIRAMATE (TopAMAX) 25 MG TAB PO SCH ×3 (08:19→21:12)
[2022-06-27] MEDS: ASPIRIN 81MG ENTERIC TABLET PO SCH ×2 (08:19→11:21)
[2022-06-27] MEDS: DOCUSATE SODIUM 100MG CAPSULE PO SCH ×3 (08:19→21:11)
[2022-06-27] MEDS: DICLOFENAC EPOLAMINE 1.3% PATCH TOP SCH ×2 (08:19→21:00)
[2022-06-27] MEDS: DIMETHICONE 2% OINTMENT(VANICREAM) 70GM TUBE TOP SCH ×2 (08:19→21:00)
[2022-06-27] MEDS: OMEPRAZOLE 20MG CAP PO SCH ×2 (08:19→11:21)
[2022-06-27 16:20] VITALS: BP 128/60
[2022-06-27] MEDS: QUEtiapine FUMARATE 50MG TAB PO SCH (21:12)
[2022-06-28 06:14] VITALS: BP 122/60
[2022-06-28] MEDS: DOCUSATE SODIUM 100MG CAPSULE PO SCH ×2 (08:52→20:34)
[2022-06-28] MEDS: OMEPRAZOLE 20MG CAP PO SCH (08:52)
[2022-06-28] MEDS: ASPIRIN 81MG ENTERIC TABLET PO SCH (08:52)
[2022-06-28] MEDS: TOPIRAMATE (TopAMAX) 25 MG TAB PO SCH ×2 (08:53→20:35)
[2022-06-28] MEDS: SERTRALINE HCL 25 MG TABLET PO SCH (08:53)
[2022-06-28] MEDS: DIMETHICONE 2% OINTMENT(VANICREAM) 70GM TUBE TOP SCH ×2 (08:56→20:36)
[2022-06-28] MEDS: DICLOFENAC EPOLAMINE 1.3% PATCH TOP SCH ×2 (08:56→20:36)
[2022-06-28] MEDS: IBUPROFEN 400MG TAB PO PRN (14:47)
[2022-06-28 18:13] VITALS: BP 114/64
[2022-06-28] MEDS: QUEtiapine FUMARATE 50MG TAB PO SCH (20:34)
[2022-06-29 06:02] VITALS: BP 122/58
[2022-06-29] MEDS: SERTRALINE HCL 25 MG TABLET PO SCH (08:44)
[2022-06-29] MEDS: ASPIRIN 81MG ENTERIC TABLET PO SCH (08:44)
[2022-06-29] MEDS: DOCUSATE SODIUM 100MG CAPSULE PO SCH ×2 (08:44→20:45)
[2022-06-29] MEDS: OMEPRAZOLE 20MG CAP PO SCH (08:45)
[2022-06-29] MEDS: TOPIRAMATE (TopAMAX) 25 MG TAB PO SCH ×2 (08:45→20:46)
[2022-06-29] MEDS: DICLOFENAC EPOLAMINE 1.3% PATCH TOP SCH ×2 (08:48→20:48)
[2022-06-29] MEDS: DIMETHICONE 2% OINTMENT(VANICREAM) 70GM TUBE TOP SCH ×2 (08:48→20:48)
[2022-06-29 18:09] VITALS: BP 145/76
[2022-06-29] MEDS: QUEtiapine FUMARATE 50MG TAB PO SCH (20:46)
[2022-06-30 06:03] VITALS: BP 126/64
[2022-06-30] MEDS: SERTRALINE HCL 25 MG TABLET PO SCH (08:30)
[2022-06-30] MEDS: OMEPRAZOLE 20MG CAP PO SCH (08:31)
[2022-06-30] MEDS: ASPIRIN 81MG ENTERIC TABLET PO SCH (08:31)
[2022-06-30] MEDS: DOCUSATE SODIUM 100MG CAPSULE PO SCH ×2 (08:31→20:14)
[2022-06-30] MEDS: TOPIRAMATE (TopAMAX) 25 MG TAB PO SCH ×2 (08:32→20:14)
[2022-06-30] MEDS: DICLOFENAC EPOLAMINE 1.3% PATCH TOP SCH (09:00)
[2022-06-30] MEDS: DIMETHICONE 2% OINTMENT(VANICREAM) 70GM TUBE TOP SCH (09:00)
[2022-06-30 17:52] VITALS: BP 118/64
[2022-06-30] MEDS: QUEtiapine FUMARATE 50MG TAB PO SCH (20:14)
[2022-07-01 06:05] VITALS: BP 98/52
[2022-07-01] MEDS: TOPIRAMATE (TopAMAX) 25 MG TAB PO SCH ×2 (08:29→20:15)
[2022-07-01] MEDS: SERTRALINE HCL 25 MG TABLET PO SCH (08:29)
[2022-07-01] MEDS: ASPIRIN 81MG ENTERIC TABLET PO SCH (08:30)
[2022-07-01] MEDS: DOCUSATE SODIUM 100MG CAPSULE PO SCH ×2 (08:30→20:15)
[2022-07-01] MEDS: OMEPRAZOLE 20MG CAP PO SCH (08:30)
[2022-07-01] MEDS: IBUPROFEN 400MG TAB PO PRN (17:29)
[2022-07-01 18:14] VITALS: BP 118/70
[2022-07-01] MEDS: QUEtiapine FUMARATE 50MG TAB PO SCH (20:16)
[2022-07-02 06:05] VITALS: BP 138/70
[2022-07-02] MEDS: TOPIRAMATE (TopAMAX) 25 MG TAB PO SCH ×2 (08:28→20:28)
[2022-07-02] MEDS: ASPIRIN 81MG ENTERIC TABLET PO SCH (08:28)
[2022-07-02] MEDS: DOCUSATE SODIUM 100MG CAPSULE PO SCH ×2 (08:28→20:28)
[2022-07-02] MEDS: OMEPRAZOLE 20MG CAP PO SCH (08:28)
[2022-07-02] MEDS: SERTRALINE HCL 25 MG TABLET PO SCH (08:28)
[2022-07-02] MEDS: QUEtiapine FUMARATE 100 MG TAB PO SCH (20:28)
[2022-07-03] MEDS: OMEPRAZOLE 20MG CAP PO SCH (08:22)
[2022-07-03] MEDS: TOPIRAMATE (TopAMAX) 25 MG TAB PO SCH ×2 (08:22→21:02)
[2022-07-03] MEDS: DOCUSATE SODIUM 100MG CAPSULE PO SCH ×2 (08:22→21:01)
[2022-07-03] MEDS: SERTRALINE HCL 25 MG TABLET PO SCH (08:22)
[2022-07-03] MEDS: ASPIRIN 81MG ENTERIC TABLET PO SCH (09:20)
[2022-07-03 18:00] VITALS: BP 148/74
[2022-07-03] MEDS: QUEtiapine FUMARATE 100 MG TAB PO SCH (21:02)
[2022-07-04 06:17] VITALS: BP 112/78
[2022-07-04] MEDS: ASPIRIN 81MG ENTERIC TABLET PO SCH (08:33)
[2022-07-04] MEDS: DOCUSATE SODIUM 100MG CAPSULE PO SCH ×2 (08:33→20:06)
[2022-07-04] MEDS: TOPIRAMATE (TopAMAX) 25 MG TAB PO SCH ×2 (08:33→20:06)
[2022-07-04] MEDS: SERTRALINE HCL 25 MG TABLET PO SCH (08:33)
[2022-07-04] MEDS: OMEPRAZOLE 20MG CAP PO SCH (08:33)
[2022-07-04 18:34] VITALS: BP 138/65
[2022-07-04] MEDS: QUEtiapine FUMARATE 100 MG TAB PO SCH (20:06)
[2022-07-05] MEDS: ACETAMINOPHEN TAB 650MG DOSE (2X325MG) PO PRN (04:56)
[2022-07-05 06:07] VITALS: BP 122/72
[2022-07-05] MEDS: SERTRALINE HCL 25 MG TABLET PO SCH (07:58)
[2022-07-05] MEDS: DOCUSATE SODIUM 100MG CAPSULE PO SCH ×2 (07:58→20:15)
[2022-07-05] MEDS: TOPIRAMATE (TopAMAX) 25 MG TAB PO SCH ×2 (07:58→20:15)
[2022-07-05] MEDS: ASPIRIN 81MG ENTERIC TABLET PO SCH (07:58)
[2022-07-05] MEDS: OMEPRAZOLE 20MG CAP PO SCH (07:58)
[2022-07-05 16:28] VITALS: BP 122/74
[2022-07-05] MEDS: QUEtiapine FUMARATE 100 MG TAB PO SCH (20:15)
[2022-07-06 06:26] VITALS: BP 124/62
[2022-07-06 08:49] VITALS: BP 140/78
[2022-07-06] MEDS: TOPIRAMATE (TopAMAX) 25 MG TAB PO SCH ×2 (08:50→20:37)
[2022-07-06] MEDS: ASPIRIN 81MG ENTERIC TABLET PO SCH (08:50)
[2022-07-06] MEDS: OMEPRAZOLE 20MG CAP PO SCH (08:50)
[2022-07-06] MEDS: DOCUSATE SODIUM 100MG CAPSULE PO SCH ×2 (08:51→20:37)
[2022-07-06] MEDS: SERTRALINE HCL 25 MG TABLET PO SCH (08:51)
[2022-07-06] MEDS: IBUPROFEN 400MG TAB PO PRN (09:20)
[2022-07-06] MEDS: PALIPERIDONE PAL 156MG/1ML INJ(INVEGA)(FREE PSY INPT ONLY) IM SCH (14:46)
[2022-07-06 16:19] VITALS: BP 138/70
[2022-07-06] MEDS: QUEtiapine FUMARATE 100 MG TAB PO SCH (20:37)
[2022-07-07 06:12] VITALS: BP 93/54
[2022-07-07] MEDS: OMEPRAZOLE 20MG CAP PO SCH (08:52)
[2022-07-07] MEDS: TOPIRAMATE (TopAMAX) 25 MG TAB PO SCH ×2 (08:52→21:06)
[2022-07-07] MEDS: SERTRALINE HCL 25 MG TABLET PO SCH (08:55)
[2022-07-07] MEDS: DOCUSATE SODIUM 100MG CAPSULE PO SCH ×2 (08:55→21:06)
[2022-07-07] MEDS: ASPIRIN 81MG ENTERIC TABLET PO SCH (08:55)
[2022-07-07 16:39] VITALS: BP 138/72
[2022-07-07] MEDS: QUEtiapine FUMARATE 100 MG TAB PO SCH (21:06)
[2022-07-08 06:13] VITALS: BP 136/66
[2022-07-08] MEDS: ASPIRIN 81MG ENTERIC TABLET PO SCH (08:34)
[2022-07-08] MEDS: OMEPRAZOLE 20MG CAP PO SCH (08:34)
[2022-07-08] MEDS: DOCUSATE SODIUM 100MG CAPSULE PO SCH ×2 (08:34→20:11)
[2022-07-08] MEDS: SERTRALINE HCL 25 MG TABLET PO SCH (08:34)
[2022-07-08] MEDS: TOPIRAMATE (TopAMAX) 25 MG TAB PO SCH ×2 (08:35→20:12)
[2022-07-08] MEDS: IBUPROFEN 400MG TAB PO PRN (11:05)
[2022-07-08 12:22] LABS: BASO % 0.6 % (0.0-1.0); EOS # 0.3 10^3/uL (0.0-0.5); EOS % 3.7 % (0.0-3.0); HEMATOCRIT 34.3 % (36.0-47.0); HEMOGLOBIN 10.7 g/dl (12.0-15.5); LYMPH % 29.8 % (24.0-44.0); MEAN CORPUSCULAR HEMOGLOBIN 27.9 pg (27.0-33.0); MEAN CORPUSCULAR HGB CONC 31.2 g/dl (32.0-36.5); MEAN CORPUSCULAR VOLUME 89.6 fl (80.0-96.0); MONO # 0.5 10^3/uL (0.0-0.8); MONO % 6.7 % (2.0-8.0); NEUTROPHILS % 59.2 % (36.0-66.0); PLATELET COUNT, AUTOMATED 215 10^3/uL (150-450); RED BLOOD COUNT 3.83 10^6/uL (4.00-5.40); WHITE BLOOD COUNT 6.7 10^3/uL (4.0-10.0)
[2022-07-08 12:51] LABS: ALBUMIN 3.4 GM/DL (3.2-5.2); BILIRUBIN,TOTAL 0.3 MG/DL (0.2-1.0); CALCIUM LEVEL 9.6 MG/DL (8.8-10.2); CREATININE FOR GFR 1.04 MG/DL (0.55-1.30); GLOMERULAR FILTRATION RATE 57.4 (>45); POTASSIUM SERUM 3.9 MEQ/L (3.5-5.1); TOTAL PROTEIN 6.7 GM/DL (6.4-8.2)
[2022-07-08 18:16] VITALS: BP 136/70
[2022-07-08] MEDS: QUEtiapine FUMARATE 100 MG TAB PO SCH (20:11)
[2022-07-09 05:58] VITALS: BP 106/72
[2022-07-09] MEDS: SERTRALINE HCL 25 MG TABLET PO SCH (08:14)
[2022-07-09] MEDS: DOCUSATE SODIUM 100MG CAPSULE PO SCH ×2 (08:14→20:14)
[2022-07-09] MEDS: ASPIRIN 81MG ENTERIC TABLET PO SCH (08:14)
[2022-07-09] MEDS: OMEPRAZOLE 20MG CAP PO SCH (08:14)
[2022-07-09] MEDS: TOPIRAMATE (TopAMAX) 25 MG TAB PO SCH ×2 (08:15→20:14)
[2022-07-09 16:36] VITALS: BP 136/70
[2022-07-09] MEDS: QUEtiapine FUMARATE 100 MG TAB PO SCH (20:14)
[2022-07-10 06:35] VITALS: BP 134/82
[2022-07-10] MEDS: ASPIRIN 81MG ENTERIC TABLET PO SCH (09:00)
[2022-07-10] MEDS: SERTRALINE HCL 25 MG TABLET PO SCH (09:00)
[2022-07-10] MEDS: DOCUSATE SODIUM 100MG CAPSULE PO SCH ×2 (09:00→21:31)
[2022-07-10] MEDS: TOPIRAMATE (TopAMAX) 25 MG TAB PO SCH ×2 (09:01→21:31)
[2022-07-10] MEDS: OMEPRAZOLE 20MG CAP PO SCH (09:01)
[2022-07-10 16:15] VITALS: BP 124/62
[2022-07-10] MEDS: QUEtiapine FUMARATE 100 MG TAB PO SCH (21:31)
[2022-07-11 06:29] VITALS: BP 116/66
[2022-07-11] MEDS: ASPIRIN 81MG ENTERIC TABLET PO SCH (08:38)
[2022-07-11] MEDS: OMEPRAZOLE 20MG CAP PO SCH (08:38)
[2022-07-11] MEDS: TOPIRAMATE (TopAMAX) 25 MG TAB PO SCH ×2 (08:38→20:33)
[2022-07-11] MEDS: SERTRALINE HCL 25 MG TABLET PO SCH (08:38)
[2022-07-11] MEDS: DOCUSATE SODIUM 100MG CAPSULE PO SCH ×2 (08:39→20:33)
[2022-07-11 16:24] VITALS: BP 138/74
[2022-07-11] MEDS: QUEtiapine FUMARATE 100 MG TAB PO SCH (20:33)
[2022-07-12 06:13] VITALS: BP 160/94
[2022-07-12 07:50] VITALS: BP 132/78
[2022-07-12] MEDS: SERTRALINE HCL 25 MG TABLET PO SCH (08:38)
[2022-07-12] MEDS: TOPIRAMATE (TopAMAX) 25 MG TAB PO SCH ×2 (08:38→20:21)
[2022-07-12] MEDS: OMEPRAZOLE 20MG CAP PO SCH (08:38)
[2022-07-12] MEDS: DOCUSATE SODIUM 100MG CAPSULE PO SCH ×2 (08:38→20:21)
[2022-07-12] MEDS: ASPIRIN 81MG ENTERIC TABLET PO SCH (08:38)
[2022-07-12] MEDS: ACETAMINOPHEN TAB 650MG DOSE (2X325MG) PO PRN (10:00)
[2022-07-12] MEDS: QUEtiapine FUMARATE 100 MG TAB PO SCH (20:21)
[2022-07-13 06:17] VITALS: BP 128/58
[2022-07-13] MEDS: TOPIRAMATE (TopAMAX) 25 MG TAB PO SCH ×2 (08:25→21:25)
[2022-07-13] MEDS: ASPIRIN 81MG ENTERIC TABLET PO SCH (08:25)
[2022-07-13] MEDS: OMEPRAZOLE 20MG CAP PO SCH (08:26)
[2022-07-13] MEDS: SERTRALINE HCL 25 MG TABLET PO SCH (08:26)
[2022-07-13] MEDS: DOCUSATE SODIUM 100MG CAPSULE PO SCH ×2 (08:26→21:25)
[2022-07-13 18:16] VITALS: BP 132/68
[2022-07-13] MEDS: QUEtiapine FUMARATE 100 MG TAB PO SCH (21:25)
[2022-07-14 06:08] VITALS: BP 116/58
[2022-07-14] MEDS: BENZTROPINE 1 MG TAB PO PRN (08:52)
[2022-07-14] MEDS: OMEPRAZOLE 20MG CAP PO SCH (08:52)
[2022-07-14] MEDS: ASPIRIN 81MG ENTERIC TABLET PO SCH (08:52)
[2022-07-14] MEDS: TOPIRAMATE (TopAMAX) 25 MG TAB PO SCH ×2 (08:53→20:28)
[2022-07-14] MEDS: SERTRALINE HCL 25 MG TABLET PO SCH (08:54)
[2022-07-14] MEDS: DOCUSATE SODIUM 100MG CAPSULE PO SCH ×2 (08:58→20:28)
[2022-07-14 18:17] VITALS: BP 135/80
[2022-07-14] MEDS: QUEtiapine FUMARATE 100 MG TAB PO SCH (20:28)
[2022-07-15 06:38] VITALS: BP 125/59
[2022-07-15] MEDS: ASPIRIN 81MG ENTERIC TABLET PO SCH (08:45)
[2022-07-15] MEDS: OMEPRAZOLE 20MG CAP PO SCH (08:45)
[2022-07-15] MEDS: SERTRALINE HCL 25 MG TABLET PO SCH (08:46)
[2022-07-15] MEDS: TOPIRAMATE (TopAMAX) 25 MG TAB PO SCH ×2 (08:46→21:47)
[2022-07-15] MEDS: DOCUSATE SODIUM 100MG CAPSULE PO SCH ×2 (08:49→21:47)
[2022-07-15 19:26] VITALS: BP 128/80
[2022-07-15] MEDS: QUEtiapine FUMARATE 100 MG TAB PO SCH (21:46)
[2022-07-16 06:11] VITALS: BP 142/78
[2022-07-16] MEDS: ACETAMINOPHEN TAB 650MG DOSE (2X325MG) PO PRN (06:36)
[2022-07-16] MEDS: ASPIRIN 81MG ENTERIC TABLET PO SCH (08:20)
[2022-07-16] MEDS: BENZTROPINE 1 MG TAB PO PRN (08:21)
[2022-07-16] MEDS: SERTRALINE HCL 25 MG TABLET PO SCH (08:21)
[2022-07-16] MEDS: DOCUSATE SODIUM 100MG CAPSULE PO SCH ×2 (08:21→20:16)
[2022-07-16] MEDS: TOPIRAMATE (TopAMAX) 25 MG TAB PO SCH ×2 (08:21→20:16)
[2022-07-16] MEDS: OMEPRAZOLE 20MG CAP PO SCH (08:21)
[2022-07-16 18:32] VITALS: BP 140/80
[2022-07-16] MEDS: QUEtiapine FUMARATE 100 MG TAB PO SCH (20:16)
[2022-07-17 06:08] VITALS: BP 146/66
[2022-07-17] MEDS: SERTRALINE HCL 25 MG TABLET PO SCH (08:33)
[2022-07-17] MEDS: DOCUSATE SODIUM 100MG CAPSULE PO SCH ×2 (08:33→21:23)
[2022-07-17] MEDS: ASPIRIN 81MG ENTERIC TABLET PO SCH (08:34)
[2022-07-17] MEDS: OMEPRAZOLE 20MG CAP PO SCH (08:34)
[2022-07-17] MEDS: TOPIRAMATE (TopAMAX) 25 MG TAB PO SCH ×2 (08:34→21:23)
[2022-07-17 18:17] VITALS: BP 116/59
[2022-07-17] MEDS: QUEtiapine FUMARATE 100 MG TAB PO SCH (21:23)
[2022-07-18 05:59] VITALS: BP 136/74
[2022-07-18] MEDS: SERTRALINE HCL 25 MG TABLET PO SCH (08:18)
[2022-07-18] MEDS: DOCUSATE SODIUM 100MG CAPSULE PO SCH ×2 (08:19→20:05)
[2022-07-18] MEDS: TOPIRAMATE (TopAMAX) 25 MG TAB PO SCH ×2 (08:19→20:05)
[2022-07-18] MEDS: ASPIRIN 81MG ENTERIC TABLET PO SCH (08:19)
[2022-07-18] MEDS: OMEPRAZOLE 20MG CAP PO SCH (08:19)
[2022-07-18] MEDS: ACETAMINOPHEN TAB 650MG DOSE (2X325MG) PO PRN (14:41)
[2022-07-18 18:16] VITALS: BP 134/71
[2022-07-18] MEDS: QUEtiapine FUMARATE 100 MG TAB PO SCH (20:05)
[2022-07-19 06:14] VITALS: BP 128/68
[2022-07-19] MEDS: ASPIRIN 81MG ENTERIC TABLET PO SCH (08:31)
[2022-07-19] MEDS: DOCUSATE SODIUM 100MG CAPSULE PO SCH ×2 (08:31→20:25)
[2022-07-19] MEDS: OMEPRAZOLE 20MG CAP PO SCH (08:32)
[2022-07-19] MEDS: SERTRALINE HCL 25 MG TABLET PO SCH (08:32)
[2022-07-19] MEDS: TOPIRAMATE (TopAMAX) 25 MG TAB PO SCH ×2 (08:32→20:26)
[2022-07-19] MEDS: BENZTROPINE 1 MG TAB PO PRN (11:54)
[2022-07-19 16:30] VITALS: BP 142/74
[2022-07-19] MEDS: QUEtiapine FUMARATE 100 MG TAB PO SCH (20:26)
[2022-07-20 06:36] VITALS: BP 107/53
[2022-07-20] MEDS: ASPIRIN 81MG ENTERIC TABLET PO SCH (08:26)
[2022-07-20] MEDS: TOPIRAMATE (TopAMAX) 25 MG TAB PO SCH ×2 (08:26→20:29)
[2022-07-20] MEDS: SERTRALINE HCL 25 MG TABLET PO SCH (08:26)
[2022-07-20] MEDS: OMEPRAZOLE 20MG CAP PO SCH (08:26)
[2022-07-20] MEDS: DOCUSATE SODIUM 100MG CAPSULE PO SCH ×2 (08:27→20:32)
[2022-07-20 16:23] VITALS: BP 136/72
[2022-07-20] MEDS: QUEtiapine FUMARATE 100 MG TAB PO SCH (20:29)
[2022-07-21 06:24] VITALS: BP 135/82
[2022-07-21] MEDS: TOPIRAMATE (TopAMAX) 25 MG TAB PO SCH ×2 (08:40→20:21)
[2022-07-21] MEDS: ASPIRIN 81MG ENTERIC TABLET PO SCH (08:40)
[2022-07-21] MEDS: OMEPRAZOLE 20MG CAP PO SCH (08:40)
[2022-07-21] MEDS: SERTRALINE HCL 25 MG TABLET PO SCH (08:41)
[2022-07-21] MEDS: DOCUSATE SODIUM 100MG CAPSULE PO SCH ×2 (08:41→20:21)
[2022-07-21] MEDS: BENZTROPINE 1 MG TAB PO PRN (16:21)
[2022-07-21 16:34] VITALS: BP 140/69
[2022-07-21] MEDS: QUEtiapine FUMARATE 100 MG TAB PO SCH (20:21)
[2022-07-22 06:14] VITALS: BP 118/72
[2022-07-22] MEDS: TOPIRAMATE (TopAMAX) 25 MG TAB PO SCH ×2 (08:19→20:33)
[2022-07-22] MEDS: ASPIRIN 81MG ENTERIC TABLET PO SCH (08:19)
[2022-07-22] MEDS: DOCUSATE SODIUM 100MG CAPSULE PO SCH ×2 (08:20→20:33)
[2022-07-22] MEDS: SERTRALINE HCL 25 MG TABLET PO SCH (08:20)
[2022-07-22] MEDS: OMEPRAZOLE 20MG CAP PO SCH (08:20)
[2022-07-22 18:31] VITALS: BP 120/68
[2022-07-22] MEDS: QUEtiapine FUMARATE 100 MG TAB PO SCH (20:33)
[2022-07-23 06:13] VITALS: BP 139/65
[2022-07-23] MEDS: ASPIRIN 81MG ENTERIC TABLET PO SCH (09:23)
[2022-07-23] MEDS: SERTRALINE HCL 25 MG TABLET PO SCH (09:23)
[2022-07-23] MEDS: OMEPRAZOLE 20MG CAP PO SCH (09:23)
[2022-07-23] MEDS: DOCUSATE SODIUM 100MG CAPSULE PO SCH ×2 (09:23→20:26)
[2022-07-23] MEDS: TOPIRAMATE (TopAMAX) 25 MG TAB PO SCH ×2 (09:23→20:27)
[2022-07-23 16:19] VITALS: BP 130/60
[2022-07-23] MEDS: QUEtiapine FUMARATE 100 MG TAB PO SCH (20:26)
[2022-07-24 06:22] VITALS: BP 108/58
[2022-07-24] MEDS: SERTRALINE HCL 25 MG TABLET PO SCH (08:55)
[2022-07-24] MEDS: ASPIRIN 81MG ENTERIC TABLET PO SCH (08:55)
[2022-07-24] MEDS: DOCUSATE SODIUM 100MG CAPSULE PO SCH ×2 (08:55→21:00)
[2022-07-24] MEDS: OMEPRAZOLE 20MG CAP PO SCH (08:56)
[2022-07-24] MEDS: TOPIRAMATE (TopAMAX) 25 MG TAB PO SCH ×2 (08:57→20:28)
[2022-07-24 16:17] VITALS: BP 118/68
[2022-07-24] MEDS: QUEtiapine FUMARATE 100 MG TAB PO SCH (20:28)
[2022-07-25 06:40] VITALS: BP 131/82
[2022-07-25] MEDS: ASPIRIN 81MG ENTERIC TABLET PO SCH (08:50)
[2022-07-25] MEDS: OMEPRAZOLE 20MG CAP PO SCH (08:50)
[2022-07-25] MEDS: DOCUSATE SODIUM 100MG CAPSULE PO SCH ×2 (08:50→21:44)
[2022-07-25] MEDS: SERTRALINE HCL 25 MG TABLET PO SCH (08:50)
[2022-07-25] MEDS: TOPIRAMATE (TopAMAX) 25 MG TAB PO SCH ×2 (08:50→21:44)
[2022-07-25 16:16] VITALS: BP 129/60
[2022-07-25] MEDS: QUEtiapine FUMARATE 100 MG TAB PO SCH (21:44)
[2022-07-26 06:29] VITALS: BP 109/51
[2022-07-26] MEDS: SERTRALINE HCL 25 MG TABLET PO SCH (08:41)
[2022-07-26] MEDS: DOCUSATE SODIUM 100MG CAPSULE PO SCH ×2 (08:41→20:41)
[2022-07-26] MEDS: TOPIRAMATE (TopAMAX) 25 MG TAB PO SCH ×2 (08:41→20:41)
[2022-07-26] MEDS: ASPIRIN 81MG ENTERIC TABLET PO SCH (08:41)
[2022-07-26] MEDS: OMEPRAZOLE 20MG CAP PO SCH (08:41)
[2022-07-26] MEDS: BENZTROPINE 1 MG TAB PO PRN (10:53)
[2022-07-26 18:15] VITALS: BP 130/60
[2022-07-26] MEDS: QUEtiapine FUMARATE 100 MG TAB PO SCH (20:41)
[2022-07-27 07:02] VITALS: BP 112/91
[2022-07-27] MEDS: DOCUSATE SODIUM 100MG CAPSULE PO SCH ×2 (08:18→20:23)
[2022-07-27] MEDS: ASPIRIN 81MG ENTERIC TABLET PO SCH (08:18)
[2022-07-27] MEDS: OMEPRAZOLE 20MG CAP PO SCH (08:18)
[2022-07-27] MEDS: SERTRALINE HCL 25 MG TABLET PO SCH (08:18)
[2022-07-27] MEDS: TOPIRAMATE (TopAMAX) 25 MG TAB PO SCH ×2 (08:18→20:23)
[2022-07-27 18:15] VITALS: BP 136/68
[2022-07-27] MEDS: QUEtiapine FUMARATE 100 MG TAB PO SCH (20:23)
[2022-07-28 06:07] VITALS: BP 140/76
[2022-07-28] MEDS: OMEPRAZOLE 20MG CAP PO SCH (09:18)
[2022-07-28] MEDS: SERTRALINE HCL 25 MG TABLET PO SCH (09:18)
[2022-07-28] MEDS: TOPIRAMATE (TopAMAX) 25 MG TAB PO SCH ×2 (09:19→20:21)
[2022-07-28] MEDS: ASPIRIN 81MG ENTERIC TABLET PO SCH (09:19)
[2022-07-28] MEDS: DOCUSATE SODIUM 100MG CAPSULE PO SCH ×2 (09:19→20:21)
[2022-07-28 18:30] VITALS: BP 134/72
[2022-07-28] MEDS: QUEtiapine FUMARATE 100 MG TAB PO SCH (20:21)
[2022-07-29 06:28] VITALS: BP 121/57
[2022-07-29] MEDS: SERTRALINE HCL 25 MG TABLET PO SCH (08:29)
[2022-07-29] MEDS: DOCUSATE SODIUM 100MG CAPSULE PO SCH ×2 (08:29→20:32)
[2022-07-29] MEDS: ASPIRIN 81MG ENTERIC TABLET PO SCH (08:29)
[2022-07-29] MEDS: OMEPRAZOLE 20MG CAP PO SCH (08:30)
[2022-07-29] MEDS: TOPIRAMATE (TopAMAX) 25 MG TAB PO SCH ×2 (08:30→20:32)
[2022-07-29 16:48] LABS: BASO % 0.4 % (0.0-1.0); EOS # 0.2 10^3/uL (0.0-0.5); HEMATOCRIT 35.6 % (36.0-47.0); HEMOGLOBIN 11.2 g/dl (12.0-15.5); LYMPH # 1.8 10^3/uL (1.5-5.0); LYMPH % 32.4 % (24.0-44.0); MEAN CORPUSCULAR HGB CONC 31.5 g/dl (32.0-36.5); MONO # 0.4 10^3/uL (0.0-0.8); MONO % 6.4 % (2.0-8.0); NEUTROPHILS # 3.1 10^3/uL (1.5-8.5); NEUTROPHILS % 56.6 % (36.0-66.0); PLATELET COUNT, AUTOMATED 220 10^3/uL (150-450); WHITE BLOOD COUNT 5.5 10^3/uL (4.0-10.0)
[2022-07-29 17:19] LABS: ALBUMIN 3.7 G/DL (3.2-5.2); ALKALINE PHOSPHATASE 110 U/L (46-116); ALT/SGPT 16 U/L (7.0-40); AST/SGOT 16 U/L (<34); BILIRUBIN,TOTAL 0.2 MG/DL (0.3-1.2); BLOOD UREA NITROGEN 28 MG/DL (9-23); CALCIUM LEVEL 9.7 MG/DL (8.3-10.6); CARBON DIOXIDE LEVEL 24 MMOL/L (20-31); CHLORIDE LEVEL 108 MMOL/L (98-107); GLOMERULAR FILTRATION RATE > 60.0 (>45); GLUCOSE, FASTING 106 MG/DL (74-106); MAGNESIUM LEVEL 1.8 MG/DL (1.8-2.4); POTASSIUM SERUM 3.9 MMOL/L (3.5-5.1); SODIUM LEVEL 142 MMOL/L (136-145); TOTAL PROTEIN 6.8 G/DL (5.7-8.2)
[2022-07-29 18:37] VITALS: BP 120/60
[2022-07-29] MEDS: QUEtiapine FUMARATE 100 MG TAB PO SCH (20:32)
[2022-07-30 06:16] VITALS: BP 129/60
[2022-07-30] MEDS: DOCUSATE SODIUM 100MG CAPSULE PO SCH ×2 (08:14→20:53)
[2022-07-30] MEDS: OMEPRAZOLE 20MG CAP PO SCH (08:15)
[2022-07-30] MEDS: TOPIRAMATE (TopAMAX) 25 MG TAB PO SCH ×2 (08:15→20:53)
[2022-07-30] MEDS: ASPIRIN 81MG ENTERIC TABLET PO SCH (08:15)
[2022-07-30] MEDS: SERTRALINE HCL 25 MG TABLET PO SCH (08:15)
[2022-07-30 18:22] VITALS: BP 134/66
[2022-07-30] MEDS: QUEtiapine FUMARATE 100 MG TAB PO SCH (20:53)
[2022-07-31] MEDS: ASPIRIN 81MG ENTERIC TABLET PO SCH (08:50)
[2022-07-31] MEDS: DOCUSATE SODIUM 100MG CAPSULE PO SCH ×2 (08:50→21:50)
[2022-07-31] MEDS: TOPIRAMATE (TopAMAX) 25 MG TAB PO SCH ×2 (08:50→21:50)
[2022-07-31] MEDS: SERTRALINE HCL 25 MG TABLET PO SCH (08:50)
[2022-07-31] MEDS: OMEPRAZOLE 20MG CAP PO SCH (08:50)
[2022-07-31 18:26] VITALS: BP 134/67
[2022-07-31] MEDS: QUEtiapine FUMARATE 100 MG TAB PO SCH (21:50)
[2022-08-01 06:00] VITALS: BP 154/68
[2022-08-01] MEDS: SERTRALINE HCL 25 MG TABLET PO SCH (10:36)
[2022-08-01] MEDS: OMEPRAZOLE 20MG CAP PO SCH (10:36)
[2022-08-01] MEDS: TOPIRAMATE (TopAMAX) 25 MG TAB PO SCH ×2 (10:36→20:18)
[2022-08-01] MEDS: ASPIRIN 81MG ENTERIC TABLET PO SCH (10:37)
[2022-08-01] MEDS: DOCUSATE SODIUM 100MG CAPSULE PO SCH ×2 (10:37→20:17)
[2022-08-01 16:53] VITALS: BP 143/70
[2022-08-01] MEDS: QUEtiapine FUMARATE 100 MG TAB PO SCH (20:17)
[2022-08-01] MEDS: ACETAMINOPHEN TAB 650MG DOSE (2X325MG) PO PRN (23:47)
[2022-08-02 06:28] VITALS: BP 132/64
[2022-08-02] MEDS: SERTRALINE HCL 25 MG TABLET PO SCH (09:17)
[2022-08-02] MEDS: ASPIRIN 81MG ENTERIC TABLET PO SCH (09:17)
[2022-08-02] MEDS: OMEPRAZOLE 20MG CAP PO SCH (09:17)
[2022-08-02] MEDS: DOCUSATE SODIUM 100MG CAPSULE PO SCH ×2 (09:17→20:20)
[2022-08-02] MEDS: TOPIRAMATE (TopAMAX) 25 MG TAB PO SCH ×2 (09:19→20:20)
[2022-08-02 16:49] VITALS: BP 142/70
[2022-08-02] MEDS: QUEtiapine FUMARATE 100 MG TAB PO SCH (20:20)
[2022-08-03 06:31] VITALS: BP 119/58
[2022-08-03] MEDS: DOCUSATE SODIUM 100MG CAPSULE PO SCH ×2 (08:23→21:03)
[2022-08-03] MEDS: TOPIRAMATE (TopAMAX) 25 MG TAB PO SCH ×2 (08:26→21:03)
[2022-08-03] MEDS: ASPIRIN 81MG ENTERIC TABLET PO SCH (08:27)
[2022-08-03] MEDS: OMEPRAZOLE 20MG CAP PO SCH (08:27)
[2022-08-03] MEDS: SERTRALINE HCL 50 MG TAB PO SCH (08:31)
[2022-08-03 16:21] VITALS: BP 138/68
[2022-08-03] MEDS: QUEtiapine FUMARATE 100 MG TAB PO SCH (21:03)
[2022-08-04 06:12] VITALS: BP 136/68
[2022-08-04] MEDS: ASPIRIN 81MG ENTERIC TABLET PO SCH (09:01)
[2022-08-04] MEDS: SERTRALINE HCL 50 MG TAB PO SCH (09:01)
[2022-08-04] MEDS: OMEPRAZOLE 20MG CAP PO SCH (09:01)
[2022-08-04] MEDS: DOCUSATE SODIUM 100MG CAPSULE PO SCH ×2 (09:01→21:44)
[2022-08-04] MEDS: TOPIRAMATE (TopAMAX) 25 MG TAB PO SCH ×2 (09:01→21:45)
[2022-08-04 18:12] VITALS: BP 120/63
[2022-08-04] MEDS: QUEtiapine FUMARATE 100 MG TAB PO SCH (21:45)
[2022-08-05 06:33] VITALS: BP 118/60
[2022-08-05] MEDS: SERTRALINE HCL 50 MG TAB PO SCH (10:28)
[2022-08-05] MEDS: TOPIRAMATE (TopAMAX) 25 MG TAB PO SCH ×2 (10:28→20:59)
[2022-08-05] MEDS: DOCUSATE SODIUM 100MG CAPSULE PO SCH ×2 (10:29→20:59)
[2022-08-05] MEDS: OMEPRAZOLE 20MG CAP PO SCH (10:29)
[2022-08-05] MEDS: ASPIRIN 81MG ENTERIC TABLET PO SCH (10:29)
[2022-08-05] MEDS: BENZTROPINE 1 MG TAB PO PRN (15:57)
[2022-08-05] MEDS: PALIPERIDONE PAL 156MG/1ML INJ(INVEGA)(FREE PSY INPT ONLY) IM SCH (16:08)
[2022-08-05 18:00] VITALS: BP 128/68
[2022-08-05] MEDS: QUEtiapine FUMARATE 100 MG TAB PO SCH (20:59)
[2022-08-06 06:53] VITALS: BP 145/88
[2022-08-06] MEDS: OMEPRAZOLE 20MG CAP PO SCH (08:48)
[2022-08-06] MEDS: ASPIRIN 81MG ENTERIC TABLET PO SCH (08:48)
[2022-08-06] MEDS: DOCUSATE SODIUM 100MG CAPSULE PO SCH ×2 (08:48→20:38)
[2022-08-06] MEDS: SERTRALINE HCL 50 MG TAB PO SCH (08:48)
[2022-08-06] MEDS: TOPIRAMATE (TopAMAX) 25 MG TAB PO SCH ×2 (08:48→20:38)
[2022-08-06 18:21] VITALS: BP 134/67
[2022-08-06] MEDS: QUEtiapine FUMARATE 100 MG TAB PO SCH (20:38)
[2022-08-07 06:32] VITALS: BP 118/56
[2022-08-07] MEDS: OMEPRAZOLE 20MG CAP PO SCH (08:36)
[2022-08-07] MEDS: DOCUSATE SODIUM 100MG CAPSULE PO SCH ×2 (08:36→20:56)
[2022-08-07] MEDS: TOPIRAMATE (TopAMAX) 25 MG TAB PO SCH ×2 (08:36→20:56)
[2022-08-07] MEDS: ASPIRIN 81MG ENTERIC TABLET PO SCH (08:36)
[2022-08-07] MEDS: SERTRALINE HCL 50 MG TAB PO SCH (08:36)
[2022-08-07 16:30] VITALS: BP 110/58
[2022-08-07] MEDS: QUEtiapine FUMARATE 100 MG TAB PO SCH (20:56)
[2022-08-08 06:42] VITALS: BP 128/60
[2022-08-08] MEDS: ASPIRIN 81MG ENTERIC TABLET PO SCH (08:19)
[2022-08-08] MEDS: TOPIRAMATE (TopAMAX) 25 MG TAB PO SCH ×2 (08:19→20:46)
[2022-08-08] MEDS: OMEPRAZOLE 20MG CAP PO SCH (08:19)
[2022-08-08] MEDS: DOCUSATE SODIUM 100MG CAPSULE PO SCH ×2 (08:19→20:46)
[2022-08-08] MEDS: SERTRALINE HCL 50 MG TAB PO SCH (08:20)
[2022-08-08 16:58] VITALS: BP 116/64
[2022-08-08] MEDS: QUEtiapine FUMARATE 100 MG TAB PO SCH (20:46)
[2022-08-09 06:03] VITALS: BP 118/66
[2022-08-09] MEDS: ASPIRIN 81MG ENTERIC TABLET PO SCH (09:37)
[2022-08-09] MEDS: BENZTROPINE 1 MG TAB PO PRN (09:37)
[2022-08-09] MEDS: SERTRALINE HCL 50 MG TAB PO SCH (09:37)
[2022-08-09] MEDS: OMEPRAZOLE 20MG CAP PO SCH (09:37)
[2022-08-09] MEDS: TOPIRAMATE (TopAMAX) 25 MG TAB PO SCH ×2 (09:37→20:19)
[2022-08-09] MEDS: DOCUSATE SODIUM 100MG CAPSULE PO SCH ×2 (09:37→20:19)
[2022-08-09 18:15] VITALS: BP 118/57
[2022-08-09] MEDS: QUEtiapine FUMARATE 100 MG TAB PO SCH (20:19)
[2022-08-10 06:09] VITALS: BP 124/62
[2022-08-10] MEDS: SERTRALINE HCL 50 MG TAB PO SCH (08:22)
[2022-08-10] MEDS: DOCUSATE SODIUM 100MG CAPSULE PO SCH ×2 (08:22→21:05)
[2022-08-10] MEDS: ASPIRIN 81MG ENTERIC TABLET PO SCH (08:23)
[2022-08-10] MEDS: OMEPRAZOLE 20MG CAP PO SCH (08:23)
[2022-08-10] MEDS: TOPIRAMATE (TopAMAX) 25 MG TAB PO SCH ×2 (08:23→21:05)
[2022-08-10] MEDS: QUEtiapine FUMARATE 100 MG TAB PO SCH (21:05)
[2022-08-11 06:09] VITALS: BP 148/78
[2022-08-11] MEDS: SERTRALINE HCL 50 MG TAB PO SCH (10:23)
[2022-08-11] MEDS: OMEPRAZOLE 20MG CAP PO SCH (10:23)
[2022-08-11] MEDS: DOCUSATE SODIUM 100MG CAPSULE PO SCH ×2 (10:23→21:06)
[2022-08-11] MEDS: ASPIRIN 81MG ENTERIC TABLET PO SCH (10:23)
[2022-08-11] MEDS: TOPIRAMATE (TopAMAX) 25 MG TAB PO SCH ×2 (10:23→21:06)
[2022-08-11] MEDS: QUEtiapine FUMARATE 100 MG TAB PO SCH (21:06)
[2022-08-12 06:31] VITALS: BP 133/63
[2022-08-12] MEDS: SERTRALINE HCL 50 MG TAB PO SCH (09:43)
[2022-08-12] MEDS: TOPIRAMATE (TopAMAX) 25 MG TAB PO SCH ×2 (09:44→21:19)
[2022-08-12] MEDS: ASPIRIN 81MG ENTERIC TABLET PO SCH (09:44)
[2022-08-12] MEDS: OMEPRAZOLE 20MG CAP PO SCH (09:44)
[2022-08-12] MEDS: DOCUSATE SODIUM 100MG CAPSULE PO SCH ×2 (09:44→21:19)
[2022-08-12 18:18] VITALS: BP 144/70
[2022-08-12] MEDS: QUEtiapine FUMARATE 100 MG TAB PO SCH (21:19)
[2022-08-13 06:37] VITALS: BP 123/56
[2022-08-13] MEDS: ASPIRIN 81MG ENTERIC TABLET PO SCH (09:40)
[2022-08-13] MEDS: TOPIRAMATE (TopAMAX) 25 MG TAB PO SCH ×2 (09:40→20:55)
[2022-08-13] MEDS: DOCUSATE SODIUM 100MG CAPSULE PO SCH ×2 (09:40→20:55)
[2022-08-13] MEDS: SERTRALINE HCL 50 MG TAB PO SCH (09:40)
[2022-08-13] MEDS: OMEPRAZOLE 20MG CAP PO SCH (09:40)
[2022-08-13 18:14] VITALS: BP 106/58
[2022-08-13] MEDS: QUEtiapine FUMARATE 100 MG TAB PO SCH (20:55)
[2022-08-14 06:15] VITALS: BP 116/56
[2022-08-14] MEDS: ASPIRIN 81MG ENTERIC TABLET PO SCH (07:56)
[2022-08-14] MEDS: OMEPRAZOLE 20MG CAP PO SCH (07:56)
[2022-08-14] MEDS: DOCUSATE SODIUM 100MG CAPSULE PO SCH ×2 (07:56→20:19)
[2022-08-14] MEDS: TOPIRAMATE (TopAMAX) 25 MG TAB PO SCH ×2 (07:56→20:19)
[2022-08-14] MEDS: SERTRALINE HCL 50 MG TAB PO SCH (07:56)
[2022-08-14 18:21] VITALS: BP 112/76
[2022-08-14] MEDS: QUEtiapine FUMARATE 100 MG TAB PO SCH (20:19)
[2022-08-15] MEDS: ASPIRIN 81MG ENTERIC TABLET PO SCH (08:43)
[2022-08-15] MEDS: DOCUSATE SODIUM 100MG CAPSULE PO SCH ×2 (08:43→21:31)
[2022-08-15] MEDS: OMEPRAZOLE 20MG CAP PO SCH (08:43)
[2022-08-15] MEDS: TOPIRAMATE (TopAMAX) 25 MG TAB PO SCH ×2 (08:43→21:31)
[2022-08-15] MEDS: SERTRALINE HCL 50 MG TAB PO SCH (08:43)
[2022-08-15 18:00] VITALS: BP 126/62
[2022-08-15] MEDS: QUEtiapine FUMARATE 100 MG TAB PO SCH (21:31)
[2022-08-16 06:33] VITALS: BP 132/62
[2022-08-16] MEDS: TOPIRAMATE (TopAMAX) 25 MG TAB PO SCH ×2 (09:19→22:57)
[2022-08-16] MEDS: DOCUSATE SODIUM 100MG CAPSULE PO SCH ×2 (09:20→22:57)
[2022-08-16] MEDS: OMEPRAZOLE 20MG CAP PO SCH (09:20)
[2022-08-16] MEDS: ASPIRIN 81MG ENTERIC TABLET PO SCH (09:20)
[2022-08-16] MEDS: SERTRALINE HCL 50 MG TAB PO SCH (09:20)
[2022-08-16 16:24] VITALS: BP 120/64
[2022-08-16] MEDS: QUEtiapine FUMARATE 100 MG TAB PO SCH (22:57)
[2022-08-17 06:41] VITALS: BP 131/58
[2022-08-17] MEDS: DOCUSATE SODIUM 100MG CAPSULE PO SCH ×2 (09:18→21:18)
[2022-08-17] MEDS: SERTRALINE HCL 50 MG TAB PO SCH (09:18)
[2022-08-17] MEDS: ASPIRIN 81MG ENTERIC TABLET PO SCH (09:19)
[2022-08-17] MEDS: OMEPRAZOLE 20MG CAP PO SCH (09:19)
[2022-08-17] MEDS: TOPIRAMATE (TopAMAX) 25 MG TAB PO SCH ×2 (09:19→21:19)
[2022-08-17 16:25] VITALS: BP 120/62
[2022-08-17] MEDS: QUEtiapine FUMARATE 100 MG TAB PO SCH (21:18)
[2022-08-18 06:20] VITALS: BP 100/56
[2022-08-18] MEDS: SERTRALINE HCL 50 MG TAB PO SCH (08:22)
[2022-08-18] MEDS: OMEPRAZOLE 20MG CAP PO SCH (08:22)
[2022-08-18] MEDS: DOCUSATE SODIUM 100MG CAPSULE PO SCH ×2 (08:22→21:41)
[2022-08-18] MEDS: ASPIRIN 81MG ENTERIC TABLET PO SCH (08:22)
[2022-08-18] MEDS: TOPIRAMATE (TopAMAX) 25 MG TAB PO SCH ×2 (08:22→21:41)
[2022-08-18 16:19] VITALS: BP 106/60
[2022-08-18] MEDS: QUEtiapine FUMARATE 50MG TAB PO SCH (21:41)
[2022-08-19 06:45] VITALS: BP 116/62
[2022-08-19] MEDS: DOCUSATE SODIUM 100MG CAPSULE PO SCH ×2 (09:54→21:39)
[2022-08-19] MEDS: OMEPRAZOLE 20MG CAP PO SCH (09:54)
[2022-08-19] MEDS: ASPIRIN 81MG ENTERIC TABLET PO SCH (09:54)
[2022-08-19] MEDS: SERTRALINE HCL 50 MG TAB PO SCH (09:55)
[2022-08-19] MEDS: TOPIRAMATE (TopAMAX) 25 MG TAB PO SCH ×2 (09:55→21:39)
[2022-08-19 19:21] VITALS: BP 118/62
[2022-08-19] MEDS: QUEtiapine FUMARATE 50MG TAB PO SCH (21:39)
[2022-08-20 06:45] VITALS: BP 110/60
[2022-08-20] MEDS: OMEPRAZOLE 20MG CAP PO SCH (08:48)
[2022-08-20] MEDS: TOPIRAMATE (TopAMAX) 25 MG TAB PO SCH ×2 (08:48→21:53)
[2022-08-20] MEDS: SERTRALINE HCL 50 MG TAB PO SCH (08:48)
[2022-08-20] MEDS: ASPIRIN 81MG ENTERIC TABLET PO SCH (08:49)
[2022-08-20] MEDS: DOCUSATE SODIUM 100MG CAPSULE PO SCH ×2 (08:49→21:53)
[2022-08-20 16:28] VITALS: BP 120/58
[2022-08-20] MEDS: QUEtiapine FUMARATE 50MG TAB PO SCH (21:53)
[2022-08-21 06:21] VITALS: BP 112/54
[2022-08-21] MEDS: ASPIRIN 81MG ENTERIC TABLET PO SCH (08:18)
[2022-08-21] MEDS: SERTRALINE HCL 50 MG TAB PO SCH (08:18)
[2022-08-21] MEDS: DOCUSATE SODIUM 100MG CAPSULE PO SCH ×2 (08:18→20:07)
[2022-08-21] MEDS: OMEPRAZOLE 20MG CAP PO SCH (08:18)
[2022-08-21] MEDS: TOPIRAMATE (TopAMAX) 25 MG TAB PO SCH ×2 (08:18→20:07)
[2022-08-21] MEDS ORDERED: ONDANSETRON 4MG ORAL DISINTEGRATING TAB PO PRN (08:45)
[2022-08-21] MEDS ORDERED: CALCIUM CARBONATE 500 MG CHEW U/D PO PRN (10:40)
[2022-08-21 11:03] LABS: HEMATOCRIT 36.2 % (36.0-47.0); HEMOGLOBIN 11.5 g/dl (12.0-15.5); MEAN CORPUSCULAR HEMOGLOBIN 27.9 pg (27.0-33.0); MEAN CORPUSCULAR HGB CONC 31.8 g/dl (32.0-36.5); MEAN CORPUSCULAR VOLUME 87.9 fl (80.0-96.0); PLATELET COUNT, AUTOMATED 200 10^3/uL (150-450); RED BLOOD COUNT 4.12 10^6/uL (4.00-5.40); WHITE BLOOD COUNT 5.9 10^3/uL (4.0-10.0)
[2022-08-21 11:12] LABS: CK-MB VALUE MASS 1.8 NG/ML (<3.6)
[2022-08-21 11:14] LABS: ALBUMIN 3.6 G/DL (3.2-5.2); ALKALINE PHOSPHATASE 125 U/L (46-116); ALT/SGPT 10 U/L (7.0-40); AST/SGOT 11 U/L (<34); BILIRUBIN,TOTAL 0.2 MG/DL (0.3-1.2); BLOOD UREA NITROGEN 30 MG/DL (9-23); CALCIUM LEVEL 9.8 MG/DL (8.3-10.6); CARBON DIOXIDE LEVEL 23 MMOL/L (20-31); CHLORIDE LEVEL 109 MMOL/L (98-107); CREATININE FOR GFR 0.79 MG/DL (0.55-1.30); GLOMERULAR FILTRATION RATE > 60.0 (>45); GLUCOSE, FASTING 100 MG/DL (74-106); MB/CK RELATIVE INDEX 3.67 (< OR =4); POTASSIUM SERUM 3.7 MMOL/L (3.5-5.1); SODIUM LEVEL 143 MMOL/L (136-145); TOTAL PROTEIN 6.9 G/DL (5.7-8.2)
[2022-08-21] MEDS: MOM 30ML SUSPENSION UDC PO PRN (13:44)
[2022-08-21 16:29] VITALS: BP 130/68
[2022-08-21] MEDS: QUEtiapine FUMARATE 50MG TAB PO SCH (20:07)
[2022-08-22 06:33] VITALS: BP 92/48
[2022-08-22] MEDS: SERTRALINE HCL 50 MG TAB PO SCH (08:53)
[2022-08-22] MEDS: ASPIRIN 81MG ENTERIC TABLET PO SCH (08:53)
[2022-08-22] MEDS: TOPIRAMATE (TopAMAX) 25 MG TAB PO SCH ×2 (08:53→21:42)
[2022-08-22] MEDS: DOCUSATE SODIUM 100MG CAPSULE PO SCH ×2 (08:53→21:42)
[2022-08-22] MEDS: OMEPRAZOLE 20MG CAP PO SCH (08:54)
[2022-08-22 16:40] VITALS: BP 110/56
[2022-08-22] MEDS: QUEtiapine FUMARATE 50MG TAB PO SCH (21:42)
[2022-08-23 06:57] VITALS: BP 118/60
[2022-08-23] MEDS: SERTRALINE HCL 50 MG TAB PO SCH (09:27)
[2022-08-23] MEDS: TOPIRAMATE (TopAMAX) 25 MG TAB PO SCH ×2 (09:27→21:09)
[2022-08-23] MEDS: DOCUSATE SODIUM 100MG CAPSULE PO SCH ×2 (09:27→21:09)
[2022-08-23] MEDS: ASPIRIN 81MG ENTERIC TABLET PO SCH (09:27)
[2022-08-23] MEDS: OMEPRAZOLE 20MG CAP PO SCH (09:28)
[2022-08-23 19:04] VITALS: BP 138/78
[2022-08-23] MEDS: QUEtiapine FUMARATE 50MG TAB PO SCH (21:09)
[2022-08-24 06:33] VITALS: BP 116/62
[2022-08-24] MEDS: TOPIRAMATE (TopAMAX) 25 MG TAB PO SCH ×2 (09:18→21:19)
[2022-08-24] MEDS: SERTRALINE HCL 25 MG TABLET PO SCH (09:18)
[2022-08-24] MEDS: ASPIRIN 81MG ENTERIC TABLET PO SCH (09:19)
[2022-08-24] MEDS: DOCUSATE SODIUM 100MG CAPSULE PO SCH ×2 (09:19→21:19)
[2022-08-24] MEDS: OMEPRAZOLE 20MG CAP PO SCH (09:19)
[2022-08-24 20:15] VITALS: BP 126/80
[2022-08-24] MEDS: QUEtiapine FUMARATE 50MG TAB PO SCH (21:19)
[2022-08-25 06:50] VITALS: BP 104/62
[2022-08-25] MEDS: OMEPRAZOLE 20MG CAP PO SCH (09:39)
[2022-08-25] MEDS: DOCUSATE SODIUM 100MG CAPSULE PO SCH ×2 (09:40→21:17)
[2022-08-25] MEDS: ASPIRIN 81MG ENTERIC TABLET PO SCH (09:40)
[2022-08-25] MEDS: SERTRALINE HCL 25 MG TABLET PO SCH (09:40)
[2022-08-25] MEDS: TOPIRAMATE (TopAMAX) 25 MG TAB PO SCH ×2 (09:40→21:17)
[2022-08-25 11:29] LABS: BASO % 0.6 % (0.0-1.0); EOS # 0.2 10^3/uL (0.0-0.5); EOS % 3.3 % (0.0-3.0); HEMATOCRIT 36.3 % (36.0-47.0); HEMOGLOBIN 11.3 g/dl (12.0-15.5); LYMPH # 1.7 10^3/uL (1.5-5.0); LYMPH % 27.2 % (24.0-44.0); MEAN CORPUSCULAR HEMOGLOBIN 27.5 pg (27.0-33.0); MEAN CORPUSCULAR HGB CONC 31.1 g/dl (32.0-36.5); MEAN CORPUSCULAR VOLUME 88.3 fl (80.0-96.0); MONO # 0.5 10^3/uL (0.0-0.8); MONO % 7.9 % (2.0-8.0); NEUTROPHILS # 3.9 10^3/uL (1.5-8.5); NEUTROPHILS % 60.8 % (36.0-66.0); PLATELET COUNT, AUTOMATED 206 10^3/uL (150-450); RED BLOOD COUNT 4.11 10^6/uL (4.00-5.40); WHITE BLOOD COUNT 6.4 10^3/uL (4.0-10.0)
[2022-08-25 11:53] LABS: ALBUMIN 3.5 G/DL (3.2-5.2); ALKALINE PHOSPHATASE 129 U/L (46-116); ALT/SGPT 11 U/L (7.0-40); AST/SGOT 12 U/L (<34); BILIRUBIN,TOTAL 0.2 MG/DL (0.3-1.2); BLOOD UREA NITROGEN 28 MG/DL (9-23); CALCIUM LEVEL 9.6 MG/DL (8.3-10.6); CARBON DIOXIDE LEVEL 25 MMOL/L (20-31); CHLORIDE LEVEL 106 MMOL/L (98-107); CREATININE FOR GFR 0.87 MG/DL (0.55-1.30); GLOMERULAR FILTRATION RATE > 60.0 (>45); GLUCOSE, FASTING 80 MG/DL (74-106); POTASSIUM SERUM 3.7 MMOL/L (3.5-5.1); SODIUM LEVEL 138 MMOL/L (136-145); TOTAL PROTEIN 6.8 G/DL (5.7-8.2)
[2022-08-25 14:38] LABS: APPEARANCE, URINE MANUAL HAZY (CLEAR); COLOR, URINE MANUAL YELLOW (YELLOW)
[2022-08-25 14:40] LABS: BILIRUBIN, URINE MANUAL NEGATIVE (NEGATIVE); BLOOD URINE MANUAL NEGATIVE (NEGATIVE); GLUCOSE, URINE (UA) MANUAL NEGATIVE (NEGATIVE); KETONE, URINE MANUAL NEGATIVE (NEGATIVE); LEUKOCYTE ESTERASE, URINE MAN POSITIVE (NEGATIVE); NITRITE, URINE MANUAL NEGATIVE (NEGATIVE); PROTEIN, URINE MANUAL NEGATIVE (NEGATIVE); UROBILINOGEN, URINE MANUAL NORMAL (NORMAL)
[2022-08-25 14:59] LABS: RBC, URINE 0-1 /hpf (0-3); SQUAMOUS EPITHELIAL CELL URINE LARGE AMOUNT /hpf (SMALL AMT); WBC, URINE 30-40 /hpf (0-3)
[2022-08-25 15:00] LABS: BACTERIA, URINE LARGE AMOUNT; MUCUS, URINE MOD AMOUNT (NEGATIVE)
[2022-08-25 18:15] VITALS: BP 131/67
[2022-08-25] MEDS: QUEtiapine FUMARATE 50MG TAB PO SCH (21:17)
[2022-08-26 06:34] VITALS: BP 104/51
[2022-08-26] MEDS: ASPIRIN 81MG ENTERIC TABLET PO SCH (09:42)
[2022-08-26] MEDS: SERTRALINE HCL 25 MG TABLET PO SCH (09:42)
[2022-08-26] MEDS: DOCUSATE SODIUM 100MG CAPSULE PO SCH ×2 (09:42→20:42)
[2022-08-26] MEDS: OMEPRAZOLE 20MG CAP PO SCH (09:42)
[2022-08-26] MEDS: TOPIRAMATE (TopAMAX) 25 MG TAB PO SCH ×2 (09:42→20:42)
[2022-08-26 15:13] VITALS: BP 133/71
[2022-08-26] MEDS: QUEtiapine FUMARATE 50MG TAB PO SCH (20:42)
[2022-08-27 06:30] VITALS: BP 126/60
[2022-08-27] MEDS: SERTRALINE HCL 25 MG TABLET PO SCH (08:03)
[2022-08-27] MEDS: DOCUSATE SODIUM 100MG CAPSULE PO SCH ×2 (08:04→21:24)
[2022-08-27] MEDS: OMEPRAZOLE 20MG CAP PO SCH (08:04)
[2022-08-27] MEDS: TOPIRAMATE (TopAMAX) 25 MG TAB PO SCH ×2 (08:04→21:24)
[2022-08-27] MEDS: ASPIRIN 81MG ENTERIC TABLET PO SCH (08:04)
[2022-08-27 19:54] VITALS: BP 140/60
[2022-08-27] MEDS: QUEtiapine FUMARATE 50MG TAB PO SCH (21:24)
[2022-08-28 06:25] VITALS: BP 112/66
[2022-08-28] MEDS: OMEPRAZOLE 20MG CAP PO SCH (08:31)
[2022-08-28] MEDS: ASPIRIN 81MG ENTERIC TABLET PO SCH (08:31)
[2022-08-28] MEDS: SERTRALINE HCL 25 MG TABLET PO SCH (08:31)
[2022-08-28] MEDS: DOCUSATE SODIUM 100MG CAPSULE PO SCH ×2 (08:31→21:09)
[2022-08-28] MEDS: TOPIRAMATE (TopAMAX) 25 MG TAB PO SCH ×2 (08:31→21:09)
[2022-08-28 18:29] VITALS: BP 122/60
[2022-08-28] MEDS: QUEtiapine FUMARATE 50MG TAB PO SCH (21:09)
[2022-08-29 06:38] VITALS: BP 136/66
[2022-08-29] MEDS: SERTRALINE HCL 25 MG TABLET PO SCH (08:21)
[2022-08-29] MEDS: DOCUSATE SODIUM 100MG CAPSULE PO SCH ×2 (08:21→20:56)
[2022-08-29] MEDS: ASPIRIN 81MG ENTERIC TABLET PO SCH (08:21)
[2022-08-29] MEDS: OMEPRAZOLE 20MG CAP PO SCH (08:21)
[2022-08-29] MEDS: TOPIRAMATE (TopAMAX) 25 MG TAB PO SCH ×2 (08:21→20:56)
[2022-08-29 18:09] VITALS: BP 119/57
[2022-08-29] MEDS: QUEtiapine FUMARATE 50MG TAB PO SCH (20:56)
[2022-08-30 06:42] VITALS: BP 134/64
[2022-08-30] MEDS: DOCUSATE SODIUM 100MG CAPSULE PO SCH ×2 (09:15→21:52)
[2022-08-30] MEDS: OMEPRAZOLE 20MG CAP PO SCH (09:16)
[2022-08-30] MEDS: ASPIRIN 81MG ENTERIC TABLET PO SCH (09:16)
[2022-08-30] MEDS: TOPIRAMATE (TopAMAX) 25 MG TAB PO SCH ×2 (09:16→21:52)
[2022-08-30] MEDS: SERTRALINE HCL 25 MG TABLET PO SCH (09:16)
[2022-08-30 16:21] VITALS: BP 122/70
[2022-08-30] MEDS: QUEtiapine FUMARATE 50MG TAB PO SCH (21:52)
[2022-08-31 06:30] VITALS: BP 110/56
[2022-08-31] MEDS: DOCUSATE SODIUM 100MG CAPSULE PO SCH ×2 (07:31→20:11)
[2022-08-31] MEDS: SERTRALINE HCL 25 MG TABLET PO SCH (07:31)
[2022-08-31] MEDS: OMEPRAZOLE 20MG CAP PO SCH (07:31)
[2022-08-31] MEDS: ASPIRIN 81MG ENTERIC TABLET PO SCH (07:31)
[2022-08-31] MEDS: TOPIRAMATE (TopAMAX) 25 MG TAB PO SCH ×2 (07:32→20:11)
[2022-08-31 16:48] VITALS: BP 116/62
[2022-08-31] MEDS: QUEtiapine FUMARATE 50MG TAB PO SCH (20:11)
[2022-09-01 06:46] VITALS: BP 111/62
[2022-09-01] MEDS: SERTRALINE HCL 25 MG TABLET PO SCH (08:23)
[2022-09-01] MEDS: ASPIRIN 81MG ENTERIC TABLET PO SCH (08:23)
[2022-09-01] MEDS: OMEPRAZOLE 20MG CAP PO SCH (08:23)
[2022-09-01] MEDS: TOPIRAMATE (TopAMAX) 25 MG TAB PO SCH ×2 (08:23→20:14)
[2022-09-01] MEDS: DOCUSATE SODIUM 100MG CAPSULE PO SCH ×2 (08:23→20:14)
[2022-09-01 16:32] VITALS: BP 132/66
[2022-09-01] MEDS: QUEtiapine FUMARATE 50MG TAB PO SCH (20:14)
[2022-09-02 07:01] VITALS: BP 126/68
[2022-09-02] MEDS: SERTRALINE 100 MG TAB PO SCH (07:59)
[2022-09-02] MEDS: TOPIRAMATE (TopAMAX) 25 MG TAB PO SCH ×2 (08:00→20:32)
[2022-09-02] MEDS: ASPIRIN 81MG ENTERIC TABLET PO SCH (08:00)
[2022-09-02] MEDS: OMEPRAZOLE 20MG CAP PO SCH (08:00)
[2022-09-02] MEDS: DOCUSATE SODIUM 100MG CAPSULE PO SCH ×2 (08:01→20:32)
[2022-09-02] MEDS: NYSTATIN 100,000 UNITS/GM TOPICAL PWD 15GM TOP SCH ×2 (15:34→20:31)
[2022-09-02] MEDS: LORazepam 0.5 MG TAB PO PRN ×2 (15:34→23:33)
[2022-09-02] MEDS: LITHIUM CARBONATE 150 MG CAP PO SCH ×2 (15:34→20:32)
[2022-09-02] MEDS: TRIAMCINOLONE ACETONIDE 0.025% 80GM CREAM TOP SCH ×2 (15:35→20:32)
[2022-09-02] MEDS: NEOSPORIN TOP OINT 15GM TOP SCH ×2 (15:35→20:32)
[2022-09-02 18:39] VITALS: BP 132/78
[2022-09-02] MEDS: QUEtiapine FUMARATE 50MG TAB PO SCH (20:32)
[2022-09-03 06:08] VITALS: BP 116/72
[2022-09-03] MEDS: LITHIUM CARBONATE 150 MG CAP PO SCH ×3 (08:32→21:11)
[2022-09-03] MEDS: ASPIRIN 81MG ENTERIC TABLET PO SCH (08:32)
[2022-09-03] MEDS: SERTRALINE 100 MG TAB PO SCH (08:32)
[2022-09-03] MEDS: OMEPRAZOLE 20MG CAP PO SCH (08:32)
[2022-09-03] MEDS: DOCUSATE SODIUM 100MG CAPSULE PO SCH ×2 (08:32→21:11)
[2022-09-03] MEDS: TOPIRAMATE (TopAMAX) 25 MG TAB PO SCH ×2 (08:32→21:11)
[2022-09-03] MEDS: NYSTATIN 100,000 UNITS/GM TOPICAL PWD 15GM TOP SCH ×2 (08:39→21:11)
[2022-09-03] MEDS: LORazepam 0.5 MG TAB PO SCH ×3 (09:10→21:11)
[2022-09-03] MEDS: TRIAMCINOLONE ACETONIDE 0.025% 80GM CREAM TOP SCH ×2 (09:18→21:12)
[2022-09-03] MEDS: NEOSPORIN TOP OINT 15GM TOP SCH ×2 (09:18→21:12)
[2022-09-03 18:00] VITALS: BP 118/62
[2022-09-03] MEDS: QUEtiapine FUMARATE 50MG TAB PO SCH (21:11)
[2022-09-04 06:30] VITALS: BP 153/74
[2022-09-04] MEDS: LITHIUM CARBONATE 150 MG CAP PO SCH ×3 (08:39→20:05)
[2022-09-04] MEDS: OMEPRAZOLE 20MG CAP PO SCH (08:40)
[2022-09-04] MEDS: DOCUSATE SODIUM 100MG CAPSULE PO SCH ×2 (08:40→20:04)
[2022-09-04] MEDS: TOPIRAMATE (TopAMAX) 25 MG TAB PO SCH ×2 (08:40→20:04)
[2022-09-04] MEDS: LORazepam 0.5 MG TAB PO SCH ×3 (08:41→20:04)
[2022-09-04] MEDS: SERTRALINE 100 MG TAB PO SCH (08:41)
[2022-09-04] MEDS: ASPIRIN 81MG ENTERIC TABLET PO SCH (08:41)
[2022-09-04] MEDS: NEOSPORIN TOP OINT 15GM TOP SCH ×2 (09:00→20:05)
[2022-09-04] MEDS: NYSTATIN 100,000 UNITS/GM TOPICAL PWD 15GM TOP SCH ×2 (09:00→20:05)
[2022-09-04] MEDS: TRIAMCINOLONE ACETONIDE 0.025% 80GM CREAM TOP SCH ×2 (09:00→20:06)
[2022-09-04 17:00] VITALS: BP 124/60
[2022-09-04] MEDS: QUEtiapine FUMARATE 50MG TAB PO SCH (20:04)
[2022-09-05 06:28] VITALS: BP 109/54
[2022-09-05] MEDS: NYSTATIN 100,000 UNITS/GM TOPICAL PWD 15GM TOP SCH ×2 (07:54→21:00)
[2022-09-05] MEDS: TRIAMCINOLONE ACETONIDE 0.025% 80GM CREAM TOP SCH ×2 (07:54→21:00)
[2022-09-05] MEDS: LITHIUM CARBONATE 150 MG CAP PO SCH ×3 (08:02→21:56)
[2022-09-05] MEDS: DOCUSATE SODIUM 100MG CAPSULE PO SCH ×2 (08:02→21:55)
[2022-09-05] MEDS: OMEPRAZOLE 20MG CAP PO SCH (08:03)
[2022-09-05] MEDS: LORazepam 0.5 MG TAB PO SCH ×3 (08:04→21:56)
[2022-09-05] MEDS: TOPIRAMATE (TopAMAX) 25 MG TAB PO SCH ×2 (08:04→21:55)
[2022-09-05] MEDS: SERTRALINE 100 MG TAB PO SCH (08:04)
[2022-09-05] MEDS: ASPIRIN 81MG ENTERIC TABLET PO SCH (08:04)
[2022-09-05] MEDS: NEOSPORIN TOP OINT 15GM TOP SCH ×2 (08:05→21:00)
[2022-09-05 14:52] VITALS: BP 112/55
[2022-09-05] MEDS: QUEtiapine FUMARATE 50MG TAB PO SCH (21:55)
[2022-09-06 07:07] VITALS: BP 130/80
[2022-09-06] MEDS: LORazepam 0.5 MG TAB PO SCH (09:50)
[2022-09-06] MEDS: TOPIRAMATE (TopAMAX) 25 MG TAB PO SCH ×2 (09:51→19:42)
[2022-09-06] MEDS: ASPIRIN 81MG ENTERIC TABLET PO SCH (09:51)
[2022-09-06] MEDS: OMEPRAZOLE 20MG CAP PO SCH (09:51)
[2022-09-06] MEDS: LITHIUM CARBONATE 150 MG CAP PO SCH ×3 (09:51→19:42)
[2022-09-06] MEDS: DOCUSATE SODIUM 100MG CAPSULE PO SCH ×2 (09:51→19:42)
[2022-09-06] MEDS: SERTRALINE 100 MG TAB PO SCH (09:51)
[2022-09-06] MEDS: NYSTATIN 100,000 UNITS/GM TOPICAL PWD 15GM TOP SCH ×2 (10:09→19:42)
[2022-09-06] MEDS: NEOSPORIN TOP OINT 15GM TOP SCH ×2 (10:09→19:42)
[2022-09-06] MEDS: TRIAMCINOLONE ACETONIDE 0.025% 80GM CREAM TOP SCH ×2 (10:10→19:43)
[2022-09-06] MEDS: LORazepam 1 MG TAB PO SCH ×2 (16:45→19:42)
[2022-09-06 19:00] VITALS: BP 126/60
[2022-09-06] MEDS: QUEtiapine FUMARATE 50MG TAB PO SCH (19:42)
[2022-09-07 06:53] VITALS: BP 114/76
[2022-09-07] MEDS: LITHIUM CARBONATE 150 MG CAP PO SCH ×3 (09:45→22:03)
[2022-09-07] MEDS: SERTRALINE 100 MG TAB PO SCH (09:45)
[2022-09-07] MEDS: OMEPRAZOLE 20MG CAP PO SCH (09:46)
[2022-09-07] MEDS: LORazepam 1 MG TAB PO SCH ×3 (09:46→22:05)
[2022-09-07] MEDS: ASPIRIN 81MG ENTERIC TABLET PO SCH (09:46)
[2022-09-07] MEDS: TOPIRAMATE (TopAMAX) 25 MG TAB PO SCH ×2 (09:46→22:03)
[2022-09-07] MEDS: DOCUSATE SODIUM 100MG CAPSULE PO SCH ×2 (09:46→22:06)
[2022-09-07 17:53] VITALS: BP 116/68
[2022-09-07] MEDS: QUEtiapine FUMARATE 50MG TAB PO SCH (22:04)
[2022-09-08 07:24] VITALS: BP 132/78
[2022-09-08] MEDS: LORazepam 1 MG TAB PO SCH (08:30)
[2022-09-08] MEDS: SERTRALINE 100 MG TAB PO SCH (08:30)
[2022-09-08] MEDS: DOCUSATE SODIUM 100MG CAPSULE PO SCH ×2 (08:30→20:13)
[2022-09-08] MEDS: LITHIUM CARBONATE 150 MG CAP PO SCH (08:30)
[2022-09-08] MEDS: ASPIRIN 81MG ENTERIC TABLET PO SCH (08:30)
[2022-09-08] MEDS: OMEPRAZOLE 20MG CAP PO SCH (08:31)
[2022-09-08] MEDS: TOPIRAMATE (TopAMAX) 25 MG TAB PO SCH ×2 (08:31→20:13)
[2022-09-08 18:14] VITALS: BP 121/63
[2022-09-08] MEDS: QUEtiapine FUMARATE 50MG TAB PO SCH (20:13)
[2022-09-08] MEDS: LORazepam 0.5 MG TAB PO SCH (20:13)
[2022-09-09 06:39] VITALS: BP 118/58
[2022-09-09] MEDS: TOPIRAMATE (TopAMAX) 25 MG TAB PO SCH ×2 (09:20→21:16)
[2022-09-09] MEDS: SERTRALINE 100 MG TAB PO SCH (09:20)
[2022-09-09] MEDS: ASPIRIN 81MG ENTERIC TABLET PO SCH (09:20)
[2022-09-09] MEDS: ACETAMINOPHEN TAB 650MG DOSE (2X325MG) PO PRN (09:20)
[2022-09-09] MEDS: DOCUSATE SODIUM 100MG CAPSULE PO SCH ×2 (09:20→21:16)
[2022-09-09] MEDS: OMEPRAZOLE 20MG CAP PO SCH (09:20)
[2022-09-09] MEDS: LORazepam 0.5 MG TAB PO SCH ×2 (09:29→21:16)
[2022-09-09] MEDS ORDERED: POLYVINYL ALCOHOL OPHTH SOLN 15ML (LIQUITEARS) OU PRN (09:30)
[2022-09-09 18:06] VITALS: BP 116/56
[2022-09-09] MEDS: QUEtiapine FUMARATE 50MG TAB PO SCH (21:16)
[2022-09-09] MEDS: LITHIUM CARBONATE 150 MG CAP PO SCH (21:16)
[2022-09-10 06:33] VITALS: BP 123/60
[2022-09-10] MEDS: DOCUSATE SODIUM 100MG CAPSULE PO SCH ×2 (08:58→21:01)
[2022-09-10] MEDS: TOPIRAMATE (TopAMAX) 25 MG TAB PO SCH ×2 (08:58→21:01)
[2022-09-10] MEDS: OMEPRAZOLE 20MG CAP PO SCH (08:58)
[2022-09-10] MEDS: ASPIRIN 81MG ENTERIC TABLET PO SCH (08:58)
[2022-09-10] MEDS: LORazepam 0.5 MG TAB PO SCH ×2 (08:59→21:02)
[2022-09-10] MEDS: SERTRALINE 100 MG TAB PO SCH (08:59)
[2022-09-10 18:11] VITALS: BP 107/55
[2022-09-10] MEDS: MOM 30ML SUSPENSION UDC PO PRN (18:47)
[2022-09-10] MEDS: LITHIUM CARBONATE 150 MG CAP PO SCH (21:01)
[2022-09-10] MEDS: QUEtiapine FUMARATE 50MG TAB PO SCH (21:01)
[2022-09-11 06:59] VITALS: BP 112/72
[2022-09-11] MEDS: DOCUSATE SODIUM 100MG CAPSULE PO SCH ×2 (08:33→21:40)
[2022-09-11] MEDS: SERTRALINE 100 MG TAB PO SCH (08:33)
[2022-09-11] MEDS: ASPIRIN 81MG ENTERIC TABLET PO SCH (08:33)
[2022-09-11] MEDS: TOPIRAMATE (TopAMAX) 25 MG TAB PO SCH ×2 (08:34→21:41)
[2022-09-11] MEDS: LORazepam 0.5 MG TAB PO SCH ×2 (08:34→21:41)
[2022-09-11] MEDS: OMEPRAZOLE 20MG CAP PO SCH (08:35)
[2022-09-11 16:37] VITALS: BP 126/62
[2022-09-11] MEDS: LITHIUM CARBONATE 150 MG CAP PO SCH (21:41)
[2022-09-11] MEDS: QUEtiapine FUMARATE 50MG TAB PO SCH (21:41)
[2022-09-12 06:47] VITALS: BP 116/70
[2022-09-12] MEDS: ASPIRIN 81MG ENTERIC TABLET PO SCH (08:42)
[2022-09-12] MEDS: TOPIRAMATE (TopAMAX) 25 MG TAB PO SCH ×2 (08:42→19:43)
[2022-09-12] MEDS: OMEPRAZOLE 20MG CAP PO SCH (08:42)
[2022-09-12] MEDS: LORazepam 0.5 MG TAB PO SCH ×2 (08:42→19:43)
[2022-09-12] MEDS: SERTRALINE 100 MG TAB PO SCH (08:43)
[2022-09-12] MEDS: DOCUSATE SODIUM 100MG CAPSULE PO SCH ×2 (09:03→19:45)
[2022-09-12 18:00] VITALS: BP 118/63
[2022-09-12] MEDS: QUEtiapine FUMARATE 50MG TAB PO SCH (19:43)
[2022-09-12] MEDS: LITHIUM CARBONATE 150 MG CAP PO SCH (19:43)
[2022-09-13 06:09] VITALS: BP 115/56
[2022-09-13] MEDS: OMEPRAZOLE 20MG CAP PO SCH (08:03)
[2022-09-13] MEDS: SERTRALINE 100 MG TAB PO SCH (08:03)
[2022-09-13] MEDS: DOCUSATE SODIUM 100MG CAPSULE PO SCH ×2 (08:03→20:13)
[2022-09-13] MEDS: TOPIRAMATE (TopAMAX) 25 MG TAB PO SCH ×2 (08:03→20:13)
[2022-09-13] MEDS: ASPIRIN 81MG ENTERIC TABLET PO SCH (08:03)
[2022-09-13] MEDS: LORazepam 0.5 MG TAB PO SCH ×2 (08:03→20:13)
[2022-09-13 16:13] VITALS: BP 114/58
[2022-09-13] MEDS: LITHIUM CARBONATE 150 MG CAP PO SCH (20:13)
[2022-09-13] MEDS: QUEtiapine FUMARATE 50MG TAB PO SCH (20:13)
[2022-09-14 06:39] VITALS: BP 117/56
[2022-09-14] MEDS: SERTRALINE 100 MG TAB PO SCH (08:37)
[2022-09-14] MEDS: TOPIRAMATE (TopAMAX) 25 MG TAB PO SCH ×2 (08:38→20:00)
[2022-09-14] MEDS: LORazepam 0.5 MG TAB PO SCH ×2 (08:38→20:00)
[2022-09-14] MEDS: ASPIRIN 81MG ENTERIC TABLET PO SCH (08:38)
[2022-09-14] MEDS: OMEPRAZOLE 20MG CAP PO SCH (08:38)
[2022-09-14] MEDS: DOCUSATE SODIUM 100MG CAPSULE PO SCH ×2 (08:38→20:00)
[2022-09-14] MEDS: ACETAMINOPHEN TAB 650MG DOSE (2X325MG) PO PRN (13:04)
[2022-09-14 16:18] VITALS: BP 128/72
[2022-09-14] MEDS: LITHIUM CARBONATE 150 MG CAP PO SCH (20:00)
[2022-09-14] MEDS: QUEtiapine FUMARATE 50MG TAB PO SCH (20:00)
[2022-09-15 06:29] VITALS: BP 125/66
[2022-09-15] MEDS ORDERED: HALO1TAB19 PO (08:31)
[2022-09-15] MEDS ORDERED: LITH150C PO (08:31)
[2022-09-15] MEDS ORDERED: TOPA1TAB PO (08:31)
[2022-09-15] MEDS ORDERED: QUET50TA4 PO (08:31)
[2022-09-15] MEDS ORDERED: POLYOPD OU (08:31)
[2022-09-15] MEDS ORDERED: NICO14PA TD (08:31)
[2022-09-15] MEDS ORDERED: ATIV1TAB10 PO (08:31)
[2022-09-15] MEDS ORDERED: LISI10TA22 PO (08:31)
[2022-09-15] MEDS ORDERED: ZOLO100T PO (08:31)
[2022-09-15] MEDS ORDERED: CALC200T15 PO (08:31)
[2022-09-15] MEDS ORDERED: OMEP-173 PO (08:31)
[2022-09-15] MEDS ORDERED: BENZ-52 PO (08:31)
[2022-09-15] MEDS ORDERED: COLA100C5 PO (08:31)
[2022-09-15] MEDS ORDERED: ONDA4TAB6 PO (08:31)
[2022-09-15 08:44] VITALS: BP 134/76
[2022-09-15] MEDS: ASPIRIN 81MG ENTERIC TABLET PO SCH (08:44)
[2022-09-15] MEDS: OMEPRAZOLE 20MG CAP PO SCH (08:44)
[2022-09-15] MEDS: LORazepam 0.5 MG TAB PO SCH (08:44)
[2022-09-15] MEDS: SERTRALINE 100 MG TAB PO SCH (08:45)
[2022-09-15] MEDS: DOCUSATE SODIUM 100MG CAPSULE PO SCH (08:45)
[2022-09-15] MEDS: TOPIRAMATE (TopAMAX) 25 MG TAB PO SCH (08:45)
== END 2022-09-15 12:32 | disposition home or self-care (01) | DRG 885 ==
LOC: M ED 00:44 → M ED INP 05-10 13:20 → M PSY 05-10 16:56 → M PCU 05-12 04:33 → UNDODISIN 05-12 04:33 → M PSY 05-14 17:43
PROVIDERS: ADMIT Student in an Organized Health Care Education/Training Program; ATTEND Student in an Organized Health Care Education/Training Program
PROC: 0HQ0XZZ Repair Scalp Skin, External Approach (ICD-10-PCS; principal; 2022-05-12)
DX: F25.0 Schizoaffective disorder, bipolar type (principal); I45.2 Bifascicular block; I25.10 Atherosclerotic heart disease of native coronary artery without angina pectoris; I25.2 Old myocardial infarction; E11.9 Type 2 diabetes mellitus without complications; G47.33 Obstructive sleep apnea (adult) (pediatric); I10 Essential (primary) hypertension; M48.00 Spinal stenosis, site unspecified; M54.81 Occipital neuralgia; K21.9 Gastro-esophageal reflux disease without esophagitis; G43.909 Migraine, unspecified, not intractable, without status migrainosus; M54.2 Cervicalgia; R26.89 Other abnormalities of gait and mobility; R07.89 Other chest pain; Z98.1 Arthrodesis status; F17.200 Nicotine dependence, unspecified, uncomplicated; M77.31 Calcaneal spur, right foot; M26.609 Unspecified temporomandibular joint disorder, unspecified side; S01.91XA Laceration without foreign body of unspecified part of head, initial encounter; W19.XXXA Unspecified fall, initial encounter; Y92.230 Patient room in hospital as the place of occurrence of the external cause; Y93.9 Activity, unspecified; Y99.8 Other external cause status; Z79.82 Long term (current) use of aspirin; Z62.810 Personal history of physical and sexual abuse in childhood; Z88.7 Allergy status to serum and vaccine; Z79.899 Other long term (current) drug therapy; Z88.8 Allergy status to other drugs, medicaments and biological substances; R42 Dizziness and giddiness

== ENCOUNTER 2022-05-12 04:34 | Inpatient (IN) | payer MEDICARE, MEDICAID ==
[~2022-05-12] VITALS: Ht 160 cm; Wt 67.8 kg
[~2022-05-12 04:34] MED LIST changes: -CLOP75TA99 PO; -DIPH-435 PO; +DIPH25CA32 PO; -NYST-38 SS; +NYST50SS SS; +PLAV1TAB2 PO
[2022-05-12] MEDS ORDERED: ACETAMINOPHEN TAB 650MG DOSE (2X325MG) PO PRN (05:10)
[2022-05-12] MEDS ORDERED: NS 1,000 ML IV ONE (05:10)
[2022-05-12] MEDS ORDERED: NS 500 ML IV ONE (05:25)
[2022-05-12] MEDS ORDERED: NICOTINE 14 MG/24 HR TRANSDERMAL TD PRN (05:25)
[2022-05-12 06:40] VITALS: BP_SYST 107; BP_SYST 120; BP_SYST 156; BP_DIAS 56; BP_DIAS 61; BP_DIAS 69
[2022-05-12 07:16] LABS: HEMATOCRIT 37.4 % (36.0-47.0); HEMOGLOBIN 12.5 g/dl (12.0-15.5); MEAN CORPUSCULAR HEMOGLOBIN 28.9 pg (27.0-33.0); MEAN CORPUSCULAR HGB CONC 33.4 g/dl (32.0-36.5); MEAN CORPUSCULAR VOLUME 86.4 fl (80.0-96.0); PLATELET COUNT, AUTOMATED 285 10^3/uL (150-450); RED BLOOD COUNT 4.33 10^6/uL (4.00-5.40)
[2022-05-12 07:59] LABS: ALBUMIN 3.4 GM/DL (3.2-5.2); BILIRUBIN,TOTAL 0.2 MG/DL (0.2-1.0); CALCIUM LEVEL 9.8 MG/DL (8.8-10.2); CREATININE FOR GFR 1.07 MG/DL (0.55-1.30); GLOMERULAR FILTRATION RATE 55.5 (>45); POTASSIUM SERUM 3.2 MEQ/L (3.5-5.1)
[2022-05-12 08:00] VITALS: BP 124/87
[2022-05-12] MEDS: OMEPRAZOLE 20MG CAP PO SCH (08:25)
[2022-05-12] MEDS: BENZTROPINE 1 MG TAB PO SCH (08:25)
[2022-05-12] MEDS: DOCUSATE SODIUM 100MG CAPSULE PO SCH ×2 (08:25→23:10)
[2022-05-12] MEDS: TOPIRAMATE (TopAMAX) 100 MG TAB PO SCH (08:25)
[2022-05-12] MEDS: ASPIRIN 81 MG CHEW TABLET PO SCH (08:25)
[2022-05-12] MEDS: DICLOFENAC EPOLAMINE 1.3 % PATCH TOP SCH ×3 (09:00→23:10)
[2022-05-12] MEDS ORDERED: CARVedilol 6.25 MG TAB PO SCH (09:00)
[2022-05-12] MEDS ORDERED: IBUPROFEN 400MG TAB PO ONE (10:25)
[2022-05-12] MEDS: IBUPROFEN 400MG TAB PO PRN ×2 (11:07→23:11)
[2022-05-12 12:00] VITALS: BP_SYST 118; BP_SYST 120; BP_DIAS 61; BP_DIAS 66
[2022-05-12 15:23] VITALS: BP_SYST 108; BP_SYST 120; BP_SYST 136; BP_DIAS 60; BP_DIAS 70; BP_DIAS 72
[2022-05-12 16:00] VITALS: BP 115/70
[2022-05-12 20:00] VITALS: BP 130/60
[2022-05-12] MEDS ORDERED: CHLORTHALIDONE 25 MG TAB PO SCH (21:00)
[2022-05-13] VITALS: BP_SYST 112; BP_SYST 123; BP_SYST 129; BP_DIAS 51; BP_DIAS 73
[2022-05-13] MEDS: TOPIRAMATE (TopAMAX) 100 MG TAB PO SCH ×3 (00:18→21:13)
[2022-05-13] MEDS: BENZTROPINE 1 MG TAB PO SCH ×3 (00:18→21:13)
[2022-05-13] MEDS: QUEtiapine FUMARATE 200 MG TAB PO SCH ×2 (00:18→21:13)
[2022-05-13] MEDS: DIMETHICONE 2% OINTMENT(VANICREAM) 70GM TUBE TOP SCH ×3 (00:19→21:57)
[2022-05-13 00:22] VITALS: BP 129/51
[2022-05-13 04:06] VITALS: BP 110/55
[2022-05-13 08:00] VITALS: BP_SYST 120; BP_SYST 126; BP_SYST 133; BP_DIAS 65; BP_DIAS 71; BP_DIAS 72
[2022-05-13 08:28] LABS: HEMATOCRIT 35.7 % (36.0-47.0); HEMOGLOBIN 11.9 g/dl (12.0-15.5); MEAN CORPUSCULAR HEMOGLOBIN 29.2 pg (27.0-33.0); MEAN CORPUSCULAR HGB CONC 33.3 g/dl (32.0-36.5); MEAN CORPUSCULAR VOLUME 87.5 fl (80.0-96.0); PLATELET COUNT, AUTOMATED 277 10^3/uL (150-450); RED BLOOD COUNT 4.08 10^6/uL (4.00-5.40); WHITE BLOOD COUNT 6.2 10^3/uL (4.0-10.0)
[2022-05-13 08:59] LABS: CREATININE FOR GFR 1.07 MG/DL (0.55-1.30); GLOMERULAR FILTRATION RATE 55.5 (>45); MAGNESIUM LEVEL 2.1 MG/DL (1.8-2.4); POTASSIUM SERUM 3.2 MEQ/L (3.5-5.1)
[2022-05-13 09:04] LABS: ALBUMIN 3.1 GM/DL (3.2-5.2); BILIRUBIN,TOTAL 0.2 MG/DL (0.2-1.0); C REACTIVE PROTEIN QUANTITATIV 0.36 MG/DL (0.00-0.30); CALCIUM LEVEL 9.7 MG/DL (8.8-10.2); CREATININE FOR GFR 1.11 MG/DL (0.55-1.30); GLOMERULAR FILTRATION RATE 53.2 (>45); POTASSIUM SERUM 3.2 MEQ/L (3.5-5.1); TOTAL PROTEIN 6.2 GM/DL (6.4-8.2)
[2022-05-13] MEDS: DOCUSATE SODIUM 100MG CAPSULE PO SCH ×2 (09:15→21:12)
[2022-05-13] MEDS: ASPIRIN 81 MG CHEW TABLET PO SCH (09:15)
[2022-05-13] MEDS: OMEPRAZOLE 20MG CAP PO SCH (09:16)
[2022-05-13] MEDS: DICLOFENAC EPOLAMINE 1.3 % PATCH TOP SCH ×2 (09:17→21:12)
[2022-05-13 10:16] LABS: ERYTHROCYTE SEDIMENTATION RATE 44 mm/hr (0-30)
[2022-05-13] MEDS ORDERED: ISOVUE-370 76% 100ML VIAL As Ordered ONE (11:10)
[2022-05-13 16:00] VITALS: BP_SYST 136; BP_SYST 137; BP_SYST 156; BP_DIAS 64; BP_DIAS 78; BP_DIAS 82
[2022-05-13 20:00] VITALS: BP 128/63
[2022-05-14 04:00] VITALS: BP_SYST 115; BP_SYST 130; BP_SYST 98; BP_DIAS 66; BP_DIAS 71; BP_DIAS 77
[2022-05-14] MEDS ORDERED: COSYNTROPIN 0.25 MG/ML VIAL (J0834 PER 0.25MG) IV ONE (06:30)
[2022-05-14 08:02] VITALS: BP 126/65
[2022-05-14] MEDS: ASPIRIN 81 MG CHEW TABLET PO SCH (09:18)
[2022-05-14] MEDS: DOCUSATE SODIUM 100MG CAPSULE PO SCH (09:19)
[2022-05-14] MEDS: OMEPRAZOLE 20MG CAP PO SCH (09:19)
[2022-05-14] MEDS: TOPIRAMATE (TopAMAX) 100 MG TAB PO SCH (09:19)
[2022-05-14] MEDS: BENZTROPINE 1 MG TAB PO SCH (09:20)
[2022-05-14] MEDS: DICLOFENAC EPOLAMINE 1.3 % PATCH TOP SCH (09:21)
[2022-05-14] MEDS: DIMETHICONE 2% OINTMENT(VANICREAM) 70GM TUBE TOP SCH (09:24)
[2022-05-14 12:00] VITALS: BP_SYST 118; BP_SYST 123; BP_DIAS 62; BP_DIAS 64; BP_DIAS 65
[2022-05-14] MEDS ORDERED: POTASSIUM CHLORIDE 10MEQ SR TABLET PO ONE (14:00)
[2022-05-14] MEDS ORDERED: K-TA1TAB PO (14:01)
[2022-05-14] MEDS ORDERED: HOME MED LIST COMPLETE! XX SCH (15:10)
== END 2022-05-14 17:18 | DRG 312 ==
LOC: M PCU 04:34 → INTOOBSV 04:34 → UNDOADMOB 04:34 → M PCU 05:02 → OBSVTOIN 05-13 10:29 → INTOOBSV 05-13 10:29 → M PCU 05-14 16:55 → UNDOADMOB 05-14 16:55 → UNDODISOB 05-14 17:18
PROVIDERS: ADMIT Internal Medicine; ATTEND Internal Medicine
DX: I95.1 Orthostatic hypotension (principal); R47.01 Aphasia; F31.9 Bipolar disorder, unspecified; I25.10 Atherosclerotic heart disease of native coronary artery without angina pectoris; G47.33 Obstructive sleep apnea (adult) (pediatric); E11.9 Type 2 diabetes mellitus without complications; I10 Essential (primary) hypertension; M48.00 Spinal stenosis, site unspecified; M54.81 Occipital neuralgia; K21.9 Gastro-esophageal reflux disease without esophagitis; G43.909 Migraine, unspecified, not intractable, without status migrainosus; M54.2 Cervicalgia; G89.29 Other chronic pain; Z90.49 Acquired absence of other specified parts of digestive tract; F17.200 Nicotine dependence, unspecified, uncomplicated; Z79.82 Long term (current) use of aspirin; Z79.899 Other long term (current) drug therapy; Z88.7 Allergy status to serum and vaccine; Z88.8 Allergy status to other drugs, medicaments and biological substances; S01.01XD Laceration without foreign body of scalp, subsequent encounter; T47.8X5A Adverse effect of other agents primarily affecting gastrointestinal system, initial encounter; T46.5X5A Adverse effect of other antihypertensive drugs, initial encounter

== ENCOUNTER → 2022-10-18 | Outpatient (CLI) | payer MEDICARE, MEDICAID ==
[~2022-10-18] MED LIST changes: +ATIV1TAB10 PO; -BENZ-52 PO; +BENZ1TAB5 PO; +CALC200T15 PO; +CLOP75TA99 PO; +COLA100C5 PO; +DIPH-435 PO; -DIPH25CA32 PO; +HALO1TAB19 PO; +K-TA1TAB PO; +LISI10TA22 PO; +LITH150C PO; +NYST-38 SS; -NYST50SS SS; +ONDA4TAB6 PO; -PLAV1TAB2 PO; +POLYOPD OU; +TOPA1TAB PO
[2022-10-18 12:56] LABS: HEMATOCRIT 40.3 % (36.0-47.0); HEMOGLOBIN 12.5 g/dl (12.0-15.5); MEAN CORPUSCULAR HEMOGLOBIN 27.7 pg (27.0-33.0); MEAN CORPUSCULAR VOLUME 89.2 fl (80.0-96.0); PLATELET COUNT, AUTOMATED 227 10^3/uL (150-450); RED BLOOD COUNT 4.52 10^6/uL (4.00-5.40); WHITE BLOOD COUNT 9.5 10^3/uL (4.0-10.0)
[2022-10-18 13:17] LABS: HEMOGLOBIN A1c 4.9 % (4.0-6.0)
[2022-10-18 13:30] LABS: ALBUMIN 3.5 G/DL (3.2-5.2); BILIRUBIN,TOTAL 0.3 MG/DL (0.3-1.2); CALCIUM LEVEL 9.8 MG/DL (8.3-10.6); CHOLESTEROL RISK RATIO 4.82 (<5); CREATININE FOR GFR 1.01 MG/DL (0.55-1.30); GLOMERULAR FILTRATION RATE 59.3 (>45); HDL CHOLESTEROL 42.9 MG/DL (>40); LDL CHOLESTEROL 134.1 MG/DL (<100); LITHIUM LEVEL 0.74 MMOL/L (0.60-1.20); POTASSIUM SERUM 4.1 MMOL/L (3.5-5.1); THYROID STIMULATING HORMONE 2.902 uIU/ML (0.55-4.78)
[2022-10-18 13:32] LABS: FREE T4 0.89 NG/DL (0.89-1.76)
== END ==
LOC: M LAB 11:34
PROVIDERS: ATTEND Internal Medicine
DX: E78.5 Hyperlipidemia, unspecified (principal); E11.9 Type 2 diabetes mellitus without complications; F31.4 Bipolar disorder, current episode depressed, severe, without psychotic features

== ENCOUNTER → 2022-12-24 | Outpatient (CLI) | payer MEDICAID, MEDICARE ==
[~2022-12-24] MED LIST changes: +ARTIDRO4 OU; +BENZ2TAB48 PO; -BENZ2TAB5 PO; -POLYOPD OU; +TOPI-254 PO; -TOPI50TA9 PO
[2022-12-24 08:30] LABS: ALBUMIN 3.5 G/DL (3.2-5.2); ALKALINE PHOSPHATASE 134 U/L (46-116); ALT/SGPT < 9 U/L (7.0-40); AST/SGOT 11 U/L (<34); BILIRUBIN,TOTAL 0.2 MG/DL (0.3-1.2); BLOOD UREA NITROGEN 14 MG/DL (9-23); CALCIUM LEVEL 9.4 MG/DL (8.3-10.6); CARBON DIOXIDE LEVEL 21 MMOL/L (20-31); CHLORIDE LEVEL 113 MMOL/L (98-107); CHOLESTEROL LEVEL 198 MG/DL (<200); CHOLESTEROL RISK RATIO 4.79 (<5); CREATININE FOR GFR 1.05 MG/DL (0.55-1.30); GLOMERULAR FILTRATION RATE 56.7 (>45); GLUCOSE, FASTING 75 MG/DL (74-106); HDL CHOLESTEROL 41.3 MG/DL (>40); LDL CHOLESTEROL 132.5 MG/DL (<100); NON-HDL-C 156.7 MG/DL; POTASSIUM SERUM 4.3 MMOL/L (3.5-5.1); SODIUM LEVEL 141 MMOL/L (136-145); TOTAL PROTEIN 6.5 G/DL (5.7-8.2); TRIGLYCERIDES LEVEL 121 MG/DL (<150)
[2022-12-24 09:48] LABS: HEMOGLOBIN A1c 4.6 % (4.0-6.0)
[2022-12-24 12:00] LABS: LITHIUM LEVEL 0.77 MMOL/L (0.60-1.20)
== END ==
LOC: M LAB 06:57
PROVIDERS: ATTEND Internal Medicine
DX: E78.5 Hyperlipidemia, unspecified (principal); R73.01 Impaired fasting glucose

== ENCOUNTER 2023-01-24 08:23 | Emergency (ER) | payer MEDICARE, MEDICAID ==
[~2023-01-24 08:23] MED LIST changes: +BENZ0.5T2 PO; -BENZ0.5T23 PO
[2023-01-24 09:27] LABS: HEMATOCRIT 40.9 % (36.0-47.0); MEAN CORPUSCULAR HEMOGLOBIN 28.5 pg (27.0-33.0); MEAN CORPUSCULAR HGB CONC 31.8 g/dl (32.0-36.5); MEAN CORPUSCULAR VOLUME 89.7 fl (80.0-96.0); PLATELET COUNT, AUTOMATED 238 10^3/uL (150-450); RED BLOOD COUNT 4.56 10^6/uL (4.00-5.40); WHITE BLOOD COUNT 10.6 10^3/uL (4.0-10.0)
[2023-01-24 09:52] LABS: ETHYL ALCOHOL (ETHANOL) < 0.003 % (0.000-0.010)
[2023-01-24 09:54] LABS: ACETAMINOPHEN LEVEL < 2.0 UG/ML (10.0-20.0); ALBUMIN 3.6 G/DL (3.2-5.2); ALKALINE PHOSPHATASE 141 U/L (46-116); ALT/SGPT < 9 U/L (7.0-40); AST/SGOT 10 U/L (<34); BILIRUBIN,DIRECT < 0.1 MG/DL (<0.4); BILIRUBIN,TOTAL 0.2 MG/DL (0.3-1.2); BLOOD UREA NITROGEN 25 MG/DL (9-23); CALCIUM LEVEL 10.1 MG/DL (8.3-10.6); CARBON DIOXIDE LEVEL 23 MMOL/L (20-31); CHLORIDE LEVEL 108 MMOL/L (98-107); CREATININE FOR GFR 0.96 MG/DL (0.55-1.30); GLOMERULAR FILTRATION RATE > 60.0 (>45); GLUCOSE, FASTING 97 MG/DL (74-106); POTASSIUM SERUM 4.4 MMOL/L (3.5-5.1); SALICYLATE LEVEL < 3.0 MG/DL (<30); SODIUM LEVEL 138 MMOL/L (136-145); TOTAL PROTEIN 7.1 G/DL (5.7-8.2)
[2023-01-24 09:57] LABS: THYROID STIMULATING HORMONE 4.442 uIU/ML (0.55-4.78)
[2023-01-24 10:03] LABS: AMPHETAMINES LEVEL URINE NEGATIVE (NEGATIVE); BARBITURATES URINE NEGATIVE (NEGATIVE); BENZODIAZEPINES URINE NEGATIVE (NEGATIVE); COCAINE METABOLITE URINE NEGATIVE (NEGATIVE); METHADONE URINE NEGATIVE (NEGATIVE)
[2023-01-24 10:04] LABS: CANNABINOIDS URINE NEGATIVE (NEGATIVE); OPIATES URINE NEGATIVE (NEGATIVE); PHENCYCLIDINE URINE NEGATIVE (NEGATIVE)
[2023-01-24 16:59] VITALS: BP 150/82; TEMP 97.5; O2SAT 98
== END 2023-01-24 17:12 | disposition home or self-care (01) ==
LOC: M ED 08:23
DX: F32.9 Major depressive disorder, single episode, unspecified (principal); E11.9 Type 2 diabetes mellitus without complications; I25.10 Atherosclerotic heart disease of native coronary artery without angina pectoris; I25.2 Old myocardial infarction; I10 Essential (primary) hypertension; F31.9 Bipolar disorder, unspecified; G47.33 Obstructive sleep apnea (adult) (pediatric); G43.909 Migraine, unspecified, not intractable, without status migrainosus; M54.2 Cervicalgia; M54.9 Dorsalgia, unspecified; F17.200 Nicotine dependence, unspecified, uncomplicated; F12.10 Cannabis abuse, uncomplicated; Z79.82 Long term (current) use of aspirin; Z88.7 Allergy status to serum and vaccine; Z88.8 Allergy status to other drugs, medicaments and biological substances

== ENCOUNTER 2023-02-01 16:28 | Emergency (ER) | payer MEDICARE, MEDICAID ==
[~2023-02-01] VITALS: Ht 167.6 cm; Wt 72.7 kg
[2023-02-01] MEDS ORDERED: QUET50TA4 PO (20:31)
[2023-02-01] MEDS ORDERED: LITH150C PO (20:31)
[2023-02-01] MEDS ORDERED: ZOLO100T PO (20:31)
[2023-02-01] MEDS ORDERED: LISI10TA22 PO (20:31)
[2023-02-01] MEDS ORDERED: TOPI25TA10 PO (20:31)
[2023-02-01] MEDS ORDERED: HOME MED LIST COMPLETE! XX SCH (20:35)
[2023-02-02 17:31] VITALS: BP 189/92
== END 2023-02-02 18:45 | disposition home or self-care (01) ==
LOC: M ED 16:28
DX: F03.90 Unspecified dementia, unspecified severity, without behavioral disturbance, psychotic disturbance, mood disturbance, and anxiety (principal); I25.10 Atherosclerotic heart disease of native coronary artery without angina pectoris; E11.9 Type 2 diabetes mellitus without complications; I10 Essential (primary) hypertension; F31.9 Bipolar disorder, unspecified; F32.A Depression, unspecified; G47.33 Obstructive sleep apnea (adult) (pediatric); Z87.891 Personal history of nicotine dependence; Z79.82 Long term (current) use of aspirin; Z79.899 Other long term (current) drug therapy; Z88.7 Allergy status to serum and vaccine; Z88.8 Allergy status to other drugs, medicaments and biological substances

== ENCOUNTER 2023-02-18 13:38 | Emergency (ER) | payer MEDICAID, MEDICARE ==
[~2023-02-18] VITALS: Ht 162.6 cm; Wt 75.0 kg
[2023-02-18 13:41] VITALS: TEMP 98; O2SAT 99
[2023-02-18 14:20] VITALS: BP 164/102
== END 2023-02-18 14:52 | disposition left against medical advice (07) ==
LOC: M ED 13:38
DX: Z53.21 Procedure and treatment not carried out due to patient leaving prior to being seen by health care provider (principal)

== ENCOUNTER 2023-03-02 11:21 | Inpatient (IN) | payer MEDICAID ==
[~2023-03-02] VITALS: Ht 165.1 cm; Wt 74.1 kg
[2023-03-02 13:20] LABS: HEMATOCRIT 39.7 % (36.0-47.0); HEMOGLOBIN 12.7 g/dl (12.0-15.5); MEAN CORPUSCULAR HEMOGLOBIN 28.2 pg (27.0-33.0); PLATELET COUNT, AUTOMATED 297 10^3/uL (150-450); RED BLOOD COUNT 4.51 10^6/uL (4.00-5.40); WHITE BLOOD COUNT 11.3 10^3/uL (4.0-10.0)
[2023-03-02 13:34] LABS: ETHYL ALCOHOL (ETHANOL) < 0.003 % (0.000-0.010)
[2023-03-02 13:35] LABS: ACETAMINOPHEN LEVEL < 2.0 UG/ML (10.0-20.0); SALICYLATE LEVEL < 3.0 MG/DL (<30)
[2023-03-02 13:36] LABS: ALBUMIN 3.4 G/DL (3.2-5.2); ALKALINE PHOSPHATASE 135 U/L (46-116); ALT/SGPT < 9 U/L (7.0-40); AST/SGOT 9 U/L (<34); BILIRUBIN,DIRECT < 0.1 MG/DL (<0.4); BILIRUBIN,TOTAL 0.3 MG/DL (0.3-1.2); BLOOD UREA NITROGEN 14 MG/DL (9-23); CALCIUM LEVEL 9.6 MG/DL (8.3-10.6); CARBON DIOXIDE LEVEL 22 MMOL/L (20-31); CHLORIDE LEVEL 112 MMOL/L (98-107); CREATININE FOR GFR 1.08 MG/DL (0.55-1.30); GLOMERULAR FILTRATION RATE 54.9 (>45); GLUCOSE, FASTING 96 MG/DL (74-106); POTASSIUM SERUM 4.3 MMOL/L (3.5-5.1); SODIUM LEVEL 142 MMOL/L (136-145); TOTAL PROTEIN 6.5 G/DL (5.7-8.2)
[2023-03-02 13:38] LABS: THYROID STIMULATING HORMONE 2.335 uIU/ML (0.55-4.78)
[2023-03-02 13:48] LABS: AMPHETAMINES LEVEL URINE NEGATIVE (NEGATIVE); BENZODIAZEPINES URINE NEGATIVE (NEGATIVE); PHENCYCLIDINE URINE NEGATIVE (NEGATIVE)
[2023-03-02 13:49] LABS: BARBITURATES URINE NEGATIVE (NEGATIVE); CANNABINOIDS URINE NEGATIVE (NEGATIVE); COCAINE METABOLITE URINE NEGATIVE (NEGATIVE); METHADONE URINE NEGATIVE (NEGATIVE); OPIATES URINE NEGATIVE (NEGATIVE)
[2023-03-02] MEDS ORDERED: MED REC IN PROGRESS XX SCH (14:55)
[2023-03-03] MEDS ORDERED: BENZ1TAB5 PO (07:34)
[2023-03-03] MEDS ORDERED: HOME MED LIST COMPLETE! XX SCH (07:40)
[2023-03-03] MEDS: TOPIRAMATE (TopAMAX) 25 MG TAB PO SCH ×2 (08:40→21:21)
[2023-03-03] MEDS: SERTRALINE 100 MG TAB PO SCH (08:40)
[2023-03-03] MEDS: BENZTROPINE 0.5 MG TAB PO SCH ×2 (08:43→21:21)
[2023-03-03] MEDS: OMEPRAZOLE 20MG CAP PO SCH (08:43)
[2023-03-03] MEDS ORDERED: ASPIRIN 81MG ENTERIC TABLET PO SCH (09:00)
[2023-03-03] MEDS ORDERED: BENZTROPINE 1 MG TAB PO SCH (09:00)
[2023-03-03] MEDS: QUEtiapine FUMARATE 50MG TAB PO SCH (21:21)
[2023-03-03] MEDS: LITHIUM CARBONATE 150 MG CAP PO SCH (21:21)
[2023-03-04] MEDS: SERTRALINE 100 MG TAB PO SCH ×2 (09:11→09:24)
[2023-03-04] MEDS: TOPIRAMATE (TopAMAX) 25 MG TAB PO SCH ×3 (09:11→23:00)
[2023-03-04] MEDS: BENZTROPINE 0.5 MG TAB PO SCH ×2 (09:11→09:23)
[2023-03-04] MEDS: OMEPRAZOLE 20MG CAP PO SCH ×2 (09:11→09:23)
[2023-03-04] MEDS ORDERED: BENZ0.5T2 PO (11:45)
[2023-03-04 13:25] VITALS: BP 151/82; TEMP 97.2; O2SAT 99
[2023-03-04 22:00] VITALS: TEMP 97.3
[2023-03-04] MEDS: QUEtiapine FUMARATE 50MG TAB PO SCH (22:58)
[2023-03-04] MEDS: LITHIUM CARBONATE 150 MG CAP PO SCH (22:59)
[2023-03-05 06:00] VITALS: BP 130/79
[2023-03-05] MEDS: HALOPERIDOL 5MG/ML 1ML VIAL IM PRN ×2 (07:49→17:50)
[2023-03-05] MEDS ORDERED: diphenhydrAMINE 50MG/ML VIAL IM PRN (08:40)
[2023-03-05] MEDS ORDERED: LORazepam 2 MG/ML 1ML VIAL IM PRN (08:40)
[2023-03-05 08:44] VITALS: BP 138/82
[2023-03-05] MEDS: OMEPRAZOLE 20MG CAP PO SCH (08:44)
[2023-03-05] MEDS: SERTRALINE 100 MG TAB PO SCH (08:44)
[2023-03-05] MEDS: QUEtiapine FUMARATE 50MG TAB PO SCH (21:00)
[2023-03-05] MEDS: LITHIUM CARBONATE 150 MG CAP PO SCH (21:00)
[2023-03-06 06:00] VITALS: BP 140/72; TEMP 97.2
[2023-03-06] MEDS: OMEPRAZOLE 20MG CAP PO SCH (09:00)
[2023-03-06] MEDS: SERTRALINE 100 MG TAB PO SCH (09:00)
[2023-03-06] MEDS: LITHIUM CARBONATE 150 MG CAP PO SCH (21:00)
[2023-03-06] MEDS: QUEtiapine FUMARATE 50MG TAB PO SCH (21:00)
[2023-03-07 06:00] VITALS: BP 127/75
[2023-03-07] MEDS: OMEPRAZOLE 20MG CAP PO SCH (09:00)
[2023-03-07] MEDS: SERTRALINE 100 MG TAB PO SCH (09:00)
[2023-03-07] MEDS: QUEtiapine FUMARATE 50MG TAB PO SCH ×2 (20:03→20:07)
[2023-03-07] MEDS: LITHIUM CARBONATE 150 MG CAP PO SCH ×2 (20:03→20:07)
[2023-03-08] MEDS: OMEPRAZOLE 20MG CAP PO SCH (08:35)
[2023-03-08] MEDS: SERTRALINE 100 MG TAB PO SCH (08:35)
[2023-03-08] MEDS: LITHIUM CARBONATE 150 MG CAP PO SCH (20:14)
[2023-03-08] MEDS: QUEtiapine FUMARATE 50MG TAB PO SCH (20:14)
[2023-03-09] MEDS: OMEPRAZOLE 20MG CAP PO SCH (08:06)
[2023-03-09] MEDS: SERTRALINE 100 MG TAB PO SCH (08:06)
[2023-03-09] MEDS: QUEtiapine FUMARATE 50MG TAB PO SCH (22:29)
[2023-03-09] MEDS: LITHIUM CARBONATE 150 MG CAP PO SCH (22:29)
[2023-03-10] MEDS: SERTRALINE 100 MG TAB PO SCH (09:00)
[2023-03-10] MEDS: OMEPRAZOLE 20MG CAP PO SCH (09:00)
[2023-03-10] MEDS: QUEtiapine FUMARATE 50MG TAB PO SCH (21:00)
[2023-03-10] MEDS: LITHIUM CARBONATE 150 MG CAP PO SCH (21:00)
[2023-03-11] MEDS: SERTRALINE 100 MG TAB PO SCH (09:00)
[2023-03-11] MEDS: OMEPRAZOLE 20MG CAP PO SCH (09:00)
[2023-03-11] MEDS: LITHIUM CARBONATE 150 MG CAP PO SCH (21:00)
[2023-03-11] MEDS: QUEtiapine FUMARATE 50MG TAB PO SCH (21:00)
[2023-03-12] MEDS: SERTRALINE 100 MG TAB PO SCH (08:20)
[2023-03-12] MEDS: OMEPRAZOLE 20MG CAP PO SCH (08:20)
[2023-03-12] MEDS ORDERED: DICLOFENAC EPOLAMINE 1.3% PATCH TOP PRN (20:00)
[2023-03-12] MEDS: QUEtiapine FUMARATE 50MG TAB PO SCH (20:32)
[2023-03-12] MEDS: LITHIUM CARBONATE 150 MG CAP PO SCH (20:32)
[2023-03-12] MEDS ORDERED: GABAPENTIN 300 MG CAP PO ONE (21:00)
[2023-03-13] MEDS: OMEPRAZOLE 20MG CAP PO SCH (08:53)
[2023-03-13] MEDS: SERTRALINE 100 MG TAB PO SCH (08:53)
[2023-03-13] MEDS: QUEtiapine FUMARATE 50MG TAB PO SCH (20:03)
[2023-03-13] MEDS: LITHIUM CARBONATE 150 MG CAP PO SCH (20:03)
[2023-03-14] MEDS: OMEPRAZOLE 20MG CAP PO SCH (09:00)
[2023-03-14] MEDS: SERTRALINE 100 MG TAB PO SCH (09:00)
[2023-03-14] MEDS: LITHIUM CARBONATE 150 MG CAP PO SCH (21:00)
[2023-03-14] MEDS: QUEtiapine FUMARATE 50MG TAB PO SCH (21:00)
[2023-03-15 06:00] VITALS: TEMP 97.2; O2SAT 96
[2023-03-15] MEDS: OMEPRAZOLE 20MG CAP PO SCH (09:00)
[2023-03-15] MEDS: SERTRALINE 100 MG TAB PO SCH (09:00)
[2023-03-15] MEDS ORDERED: ACETAMINOPHEN TAB 650MG DOSE (2X325MG) PO PRN (20:20)
[2023-03-15] MEDS: LITHIUM CARBONATE 150 MG CAP PO SCH (21:00)
[2023-03-15] MEDS: QUEtiapine FUMARATE 50MG TAB PO SCH (21:00)
[2023-03-16] MEDS: SERTRALINE 100 MG TAB PO SCH (07:58)
[2023-03-16] MEDS: OMEPRAZOLE 20MG CAP PO SCH (07:58)
[2023-03-16] MEDS: QUEtiapine FUMARATE 50MG TAB PO SCH (20:00)
[2023-03-16] MEDS: LITHIUM CARBONATE 150 MG CAP PO SCH (20:00)
[2023-03-17] MEDS: OMEPRAZOLE 20MG CAP PO SCH (10:31)
[2023-03-17] MEDS: SERTRALINE 100 MG TAB PO SCH (10:32)
[2023-03-17] MEDS: LITHIUM CARBONATE 150 MG CAP PO SCH (19:55)
[2023-03-17] MEDS: QUEtiapine FUMARATE 50MG TAB PO SCH (19:56)
[2023-03-18] MEDS: OMEPRAZOLE 20MG CAP PO SCH (10:35)
[2023-03-18] MEDS: SERTRALINE 100 MG TAB PO SCH (10:36)
[2023-03-18] MEDS: QUEtiapine FUMARATE 50MG TAB PO SCH (21:00)
[2023-03-18] MEDS: LITHIUM CARBONATE 150 MG CAP PO SCH (21:00)
[2023-03-19] MEDS: SERTRALINE 100 MG TAB PO SCH (08:43)
[2023-03-19] MEDS: OMEPRAZOLE 20MG CAP PO SCH (08:43)
[2023-03-19] MEDS ORDERED: IBUPROFEN 400MG TAB PO PRN (18:55)
[2023-03-19] MEDS ORDERED: NORCO, ANEXSIA 5/325MG TABLET (HYDROcodone/ACETAMINOPHEN) PO PRN (18:55)
[2023-03-19] MEDS: LITHIUM CARBONATE 150 MG CAP PO SCH (21:00)
[2023-03-19] MEDS: ENOXAPARIN 40MG/0.4ML SYRINGE (J1650 PER 10MG) SC SCH (21:00)
[2023-03-19] MEDS: QUEtiapine FUMARATE 50MG TAB PO SCH (21:00)
[2023-03-20] MEDS: OMEPRAZOLE 20MG CAP PO SCH (08:19)
[2023-03-20] MEDS: SERTRALINE 100 MG TAB PO SCH (08:20)
[2023-03-20] MEDS: LITHIUM CARBONATE 150 MG CAP PO SCH (21:00)
[2023-03-20] MEDS: ENOXAPARIN 40MG/0.4ML SYRINGE (J1650 PER 10MG) SC SCH (21:00)
[2023-03-20] MEDS: QUEtiapine FUMARATE 50MG TAB PO SCH (21:00)
[2023-03-21] MEDS: HALOPERIDOL 5MG/ML 1ML VIAL IM PRN (08:12)
[2023-03-21] MEDS: OMEPRAZOLE 20MG CAP PO SCH (09:00)
[2023-03-21] MEDS: SERTRALINE 100 MG TAB PO SCH (09:00)
[2023-03-21] MEDS: QUEtiapine FUMARATE 50MG TAB PO SCH (21:00)
[2023-03-21] MEDS: ENOXAPARIN 40MG/0.4ML SYRINGE (J1650 PER 10MG) SC SCH (21:00)
[2023-03-21] MEDS: LITHIUM CARBONATE 150 MG CAP PO SCH (21:00)
[2023-03-22] MEDS: SERTRALINE 100 MG TAB PO SCH (08:55)
[2023-03-22] MEDS: OMEPRAZOLE 20MG CAP PO SCH (08:55)
[2023-03-22] MEDS: ENOXAPARIN 40MG/0.4ML SYRINGE (J1650 PER 10MG) SC SCH (21:00)
[2023-03-22] MEDS: LITHIUM CARBONATE 150 MG CAP PO SCH (21:00)
[2023-03-22] MEDS: QUEtiapine FUMARATE 50MG TAB PO SCH (21:00)
[2023-03-23] MEDS: OMEPRAZOLE 20MG CAP PO SCH (11:06)
[2023-03-23] MEDS: SERTRALINE 100 MG TAB PO SCH (11:07)
[2023-03-23] MEDS: LITHIUM CARBONATE 150 MG CAP PO SCH (21:00)
[2023-03-23] MEDS: QUEtiapine FUMARATE 50MG TAB PO SCH (21:00)
[2023-03-23] MEDS: ENOXAPARIN 40MG/0.4ML SYRINGE (J1650 PER 10MG) SC SCH (21:00)
[2023-03-24] MEDS: OMEPRAZOLE 20MG CAP PO SCH (08:18)
[2023-03-24] MEDS: SERTRALINE 100 MG TAB PO SCH (08:18)
[2023-03-24] MEDS: LITHIUM CARBONATE 150 MG CAP PO SCH (21:00)
[2023-03-24] MEDS: ENOXAPARIN 40MG/0.4ML SYRINGE (J1650 PER 10MG) SC SCH (21:00)
[2023-03-24] MEDS: QUEtiapine FUMARATE 50MG TAB PO SCH (21:00)
[2023-03-25] MEDS: OMEPRAZOLE 20MG CAP PO SCH (08:15)
[2023-03-25] MEDS: SERTRALINE 100 MG TAB PO SCH (08:16)
== END 2023-03-25 14:30 | disposition other institution (70) | DRG 757 ==
LOC: M ED 11:21 → M ED INP 03-04 10:15 → M MSPAV 03-04 13:25
PROVIDERS: ADMIT General Practice; ATTEND Family Medicine
DX: F03.90 Unspecified dementia, unspecified severity, without behavioral disturbance, psychotic disturbance, mood disturbance, and anxiety (principal); G92.8 Other toxic encephalopathy; F25.0 Schizoaffective disorder, bipolar type; R41.82 Altered mental status, unspecified; T44.3X5A Adverse effect of other parasympatholytics [anticholinergics and antimuscarinics] and spasmolytics, initial encounter; E11.9 Type 2 diabetes mellitus without complications; I10 Essential (primary) hypertension; F31.9 Bipolar disorder, unspecified; I25.10 Atherosclerotic heart disease of native coronary artery without angina pectoris; G47.33 Obstructive sleep apnea (adult) (pediatric); M48.00 Spinal stenosis, site unspecified; M54.81 Occipital neuralgia; G43.909 Migraine, unspecified, not intractable, without status migrainosus; Z79.899 Other long term (current) drug therapy; Z88.7 Allergy status to serum and vaccine; Z88.8 Allergy status to other drugs, medicaments and biological substances; Z20.822 Contact with and (suspected) exposure to COVID-19; G89.29 Other chronic pain

== ENCOUNTER 2023-03-25 12:45 | Inpatient (IN) | payer MEDICARE, MEDICAID ==
[~2023-03-25] VITALS: Ht 165.1 cm; Wt 78.5 kg
[~2023-03-25 12:45] MED LIST changes: -AMIT25TA17 PO; +AMIT25TA19 PO; +DICL100G10 TOP; -DICL1GEL3 TOP; -GABA-283 PO; +GABA-284 PO; -MIRT-62 PO; +MIRT-88 PO
[2023-03-25] MEDS ORDERED: OLANZapine ORAL DISINTEGRATING TAB 5MG PO PRN (12:50)
[2023-03-25] MEDS ORDERED: MOM 30ML SUSPENSION UDC PO PRN (12:50)
[2023-03-25] MEDS ORDERED: MAALOX 30 ML SUSP *UDC PO PRN (12:50)
[2023-03-25] MEDS: LITHIUM CARBONATE 150 MG CAP PO SCH (21:00)
[2023-03-25] MEDS ORDERED: BENZTROPINE 0.5 MG TAB PO SCH (21:00)
[2023-03-25] MEDS: QUEtiapine FUMARATE 50MG TAB PO SCH (21:00)
[2023-03-25] MEDS ORDERED: TOPIRAMATE (TopAMAX) 25 MG TAB PO SCH (21:00)
[2023-03-26] MEDS ORDERED: SUCRALFATE SUSP 1GM/10ML UD PO ONE (08:10)
[2023-03-26] MEDS ORDERED: FAMOTIDINE 20 MG TAB PO ONE (08:10)
[2023-03-26] MEDS: SERTRALINE 100 MG TAB PO SCH (09:00)
[2023-03-26] MEDS ORDERED: OMEPRAZOLE 20MG CAP PO SCH (09:00)
[2023-03-26] MEDS: PANTOPRAZOLE 40MG TAB (PROTONIX) PO SCH (09:00)
[2023-03-26] MEDS: SUCRALFATE SUSP 1GM/10ML UD PO SCH ×3 (12:00→21:00)
[2023-03-26 18:22] VITALS: TEMP 97.3; O2SAT 98
[2023-03-26] MEDS: LITHIUM CARBONATE 150 MG CAP PO SCH (21:00)
[2023-03-26] MEDS: QUEtiapine FUMARATE 50MG TAB PO SCH (21:00)
[2023-03-27] MEDS: SUCRALFATE SUSP 1GM/10ML UD PO SCH ×4 (06:40→21:00)
[2023-03-27] MEDS: PANTOPRAZOLE 40MG TAB (PROTONIX) PO SCH (09:00)
[2023-03-27] MEDS: SERTRALINE 100 MG TAB PO SCH (14:04)
[2023-03-27 18:00] VITALS: TEMP 96.5; O2SAT 99
[2023-03-27] MEDS: QUEtiapine FUMARATE 50MG TAB PO SCH (21:00)
[2023-03-27] MEDS: LITHIUM CARBONATE 150 MG CAP PO SCH (21:00)
[2023-03-28] MEDS: SUCRALFATE SUSP 1GM/10ML UD PO SCH ×4 (06:33→20:34)
[2023-03-28] MEDS: SERTRALINE 100 MG TAB PO SCH (09:00)
[2023-03-28] MEDS: PANTOPRAZOLE 40MG TAB (PROTONIX) PO SCH (09:00)
[2023-03-28 10:08] VITALS: BP 146/76
[2023-03-28] MEDS ORDERED: OLANZapine INTRAMUSCULAR 10MG VIAL IM ONE (10:20)
[2023-03-28 18:11] VITALS: TEMP 97.8
[2023-03-28] MEDS: LITHIUM CARBONATE 150 MG CAP PO SCH (20:34)
[2023-03-28] MEDS: QUEtiapine FUMARATE 50MG TAB PO SCH (20:34)
[2023-03-29] MEDS: SUCRALFATE SUSP 1GM/10ML UD PO SCH ×4 (06:39→21:00)
[2023-03-29] MEDS: LORazepam 1 MG TAB PO SCH ×2 (09:00→21:00)
[2023-03-29] MEDS ORDERED: LORazepam 0.5 MG TAB PO SCH ×2 (09:00→21:00)
[2023-03-29] MEDS: SERTRALINE 100 MG TAB PO SCH (09:00)
[2023-03-29] MEDS: PANTOPRAZOLE 40MG TAB (PROTONIX) PO SCH (09:00)
[2023-03-29] MEDS ORDERED: LORazepam 1 MG TAB PO PRN (10:05)
[2023-03-29] MEDS: LITHIUM CARBONATE 150 MG CAP PO SCH (21:00)
[2023-03-29] MEDS: QUEtiapine FUMARATE 50MG TAB PO SCH (21:00)
[2023-03-30] MEDS: SUCRALFATE SUSP 1GM/10ML UD PO SCH ×4 (06:46→21:00)
[2023-03-30] MEDS: PANTOPRAZOLE 40MG TAB (PROTONIX) PO SCH (09:00)
[2023-03-30] MEDS: LORazepam 1 MG TAB PO SCH ×2 (09:00→21:00)
[2023-03-30] MEDS: SERTRALINE 100 MG TAB PO SCH (09:00)
[2023-03-30] MEDS: LITHIUM CARBONATE 150 MG CAP PO SCH (21:00)
[2023-03-30] MEDS: QUEtiapine FUMARATE 50MG TAB PO SCH (21:00)
[2023-03-31] MEDS: SUCRALFATE SUSP 1GM/10ML UD PO SCH ×4 (06:53→21:00)
[2023-03-31] MEDS: PANTOPRAZOLE 40MG TAB (PROTONIX) PO SCH (09:00)
[2023-03-31] MEDS: SERTRALINE 100 MG TAB PO SCH (09:00)
[2023-03-31] MEDS: LORazepam 1 MG TAB PO SCH ×2 (09:00→21:00)
[2023-03-31] MEDS: LITHIUM CARBONATE 150 MG CAP PO SCH (21:00)
[2023-03-31] MEDS: QUEtiapine FUMARATE 50MG TAB PO SCH (21:00)
[2023-04-01] MEDS: SUCRALFATE SUSP 1GM/10ML UD PO SCH ×4 (06:40→21:00)
[2023-04-01] MEDS: LORazepam 1 MG TAB PO SCH ×2 (09:00→21:00)
[2023-04-01] MEDS: SERTRALINE 100 MG TAB PO SCH (09:00)
[2023-04-01] MEDS: PANTOPRAZOLE 40MG TAB (PROTONIX) PO SCH (09:00)
[2023-04-01] MEDS: QUEtiapine FUMARATE 50MG TAB PO SCH (21:00)
[2023-04-01] MEDS: LITHIUM CARBONATE 150 MG CAP PO SCH (21:00)
[2023-04-02] MEDS: SUCRALFATE SUSP 1GM/10ML UD PO SCH ×4 (06:45→21:00)
[2023-04-02] MEDS: SERTRALINE 100 MG TAB PO SCH (09:00)
[2023-04-02] MEDS: LORazepam 1 MG TAB PO SCH ×2 (09:00→21:00)
[2023-04-02] MEDS: PANTOPRAZOLE 40MG TAB (PROTONIX) PO SCH (09:00)
[2023-04-02] MEDS: QUEtiapine FUMARATE 50MG TAB PO SCH (21:00)
[2023-04-02] MEDS: LITHIUM CARBONATE 150 MG CAP PO SCH (21:00)
[2023-04-03] MEDS: SUCRALFATE SUSP 1GM/10ML UD PO SCH ×4 (07:30→21:00)
[2023-04-03] MEDS: SERTRALINE 100 MG TAB PO SCH (09:00)
[2023-04-03] MEDS: PANTOPRAZOLE 40MG TAB (PROTONIX) PO SCH (09:00)
[2023-04-03] MEDS: LORazepam 1 MG TAB PO SCH ×2 (09:00→21:00)
[2023-04-03] MEDS: QUEtiapine FUMARATE 50MG TAB PO SCH (21:00)
[2023-04-03] MEDS: LITHIUM CARBONATE 150 MG CAP PO SCH (21:00)
[2023-04-04 06:20] VITALS: TEMP 97.3; O2SAT 96
[2023-04-04] MEDS: SUCRALFATE SUSP 1GM/10ML UD PO SCH ×4 (06:46→20:15)
[2023-04-04] MEDS: SERTRALINE 100 MG TAB PO SCH (09:00)
[2023-04-04] MEDS: PANTOPRAZOLE 40MG TAB (PROTONIX) PO SCH (09:00)
[2023-04-04] MEDS: LORazepam 1 MG TAB PO SCH ×2 (09:00→20:14)
[2023-04-04 17:47] VITALS: TEMP 98.2
[2023-04-04] MEDS: LITHIUM CARBONATE 150 MG CAP PO SCH (20:15)
[2023-04-04] MEDS: QUEtiapine FUMARATE 50MG TAB PO SCH (20:15)
[2023-04-05 06:26] VITALS: TEMP 97.1; O2SAT 96
[2023-04-05] MEDS: SUCRALFATE SUSP 1GM/10ML UD PO SCH ×4 (06:31→20:00)
[2023-04-05] MEDS: PANTOPRAZOLE 40MG TAB (PROTONIX) PO SCH (09:00)
[2023-04-05] MEDS: LORazepam 1 MG TAB PO SCH ×2 (09:00→20:00)
[2023-04-05] MEDS: SERTRALINE 100 MG TAB PO SCH (09:00)
[2023-04-05 18:24] VITALS: TEMP 98.9
[2023-04-05] MEDS: QUEtiapine FUMARATE 50MG TAB PO SCH (20:01)
[2023-04-05] MEDS: LITHIUM CARBONATE 150 MG CAP PO SCH (20:01)
[2023-04-06] MEDS: SUCRALFATE SUSP 1GM/10ML UD PO SCH ×4 (06:38→20:37)
[2023-04-06] MEDS: SERTRALINE 100 MG TAB PO SCH (09:00)
[2023-04-06] MEDS: LORazepam 1 MG TAB PO SCH ×2 (09:00→20:37)
[2023-04-06] MEDS: PANTOPRAZOLE 40MG TAB (PROTONIX) PO SCH (09:00)
[2023-04-06] MEDS: LITHIUM CARBONATE 150 MG CAP PO SCH (20:37)
[2023-04-06] MEDS: QUEtiapine FUMARATE 50MG TAB PO SCH (20:37)
[2023-04-07] MEDS: SUCRALFATE SUSP 1GM/10ML UD PO SCH ×4 (07:04→21:00)
[2023-04-07] MEDS: PANTOPRAZOLE 40MG TAB (PROTONIX) PO SCH (08:56)
[2023-04-07] MEDS: LORazepam 1 MG TAB PO SCH ×2 (08:56→21:00)
[2023-04-07] MEDS: SERTRALINE 100 MG TAB PO SCH (08:56)
[2023-04-07] MEDS: QUEtiapine FUMARATE 50MG TAB PO SCH (21:00)
[2023-04-07] MEDS: LITHIUM CARBONATE 150 MG CAP PO SCH (21:00)
[2023-04-08] MEDS: SUCRALFATE SUSP 1GM/10ML UD PO SCH ×4 (06:51→20:53)
[2023-04-08] MEDS: SERTRALINE 100 MG TAB PO SCH (09:00)
[2023-04-08] MEDS: PANTOPRAZOLE 40MG TAB (PROTONIX) PO SCH (09:00)
[2023-04-08] MEDS: LORazepam 1 MG TAB PO SCH ×2 (09:00→20:53)
[2023-04-08 17:27] VITALS: BP 128/76; TEMP 97.8
[2023-04-08] MEDS: LITHIUM CARBONATE 150 MG CAP PO SCH (20:53)
[2023-04-08] MEDS: QUEtiapine FUMARATE 50MG TAB PO SCH (21:00)
[2023-04-09] MEDS: SUCRALFATE SUSP 1GM/10ML UD PO SCH ×5 (06:35→21:11)
[2023-04-09] MEDS: SERTRALINE 100 MG TAB PO SCH (09:00)
[2023-04-09] MEDS: PANTOPRAZOLE 40MG TAB (PROTONIX) PO SCH (09:00)
[2023-04-09] MEDS: LORazepam 1 MG TAB PO SCH ×3 (09:00→21:12)
[2023-04-09] MEDS: LITHIUM CARBONATE 150 MG CAP PO SCH ×2 (20:20→21:12)
[2023-04-09] MEDS: QUEtiapine FUMARATE 50MG TAB PO SCH ×2 (20:20→21:12)
[2023-04-10 06:18] VITALS: BP 148/100; TEMP 96.5; O2SAT 98
[2023-04-10] MEDS: SUCRALFATE SUSP 1GM/10ML UD PO SCH ×4 (06:34→20:32)
[2023-04-10] MEDS: PANTOPRAZOLE 40MG TAB (PROTONIX) PO SCH ×2 (08:43→09:00)
[2023-04-10] MEDS: SERTRALINE 100 MG TAB PO SCH ×2 (08:43→09:00)
[2023-04-10] MEDS: LORazepam 1 MG TAB PO SCH ×3 (08:44→20:32)
[2023-04-10] MEDS: QUEtiapine FUMARATE 50MG TAB PO SCH (20:32)
[2023-04-10] MEDS: LITHIUM CARBONATE 150 MG CAP PO SCH (20:32)
[2023-04-11] MEDS: SUCRALFATE SUSP 1GM/10ML UD PO SCH ×4 (06:34→21:00)
[2023-04-11] MEDS: SERTRALINE 100 MG TAB PO SCH (09:00)
[2023-04-11] MEDS: PANTOPRAZOLE 40MG TAB (PROTONIX) PO SCH (09:00)
[2023-04-11] MEDS: LORazepam 1 MG TAB PO SCH ×2 (09:00→21:00)
[2023-04-11 10:13] VITALS: BP 118/72
[2023-04-11] MEDS: LITHIUM CARBONATE 150 MG CAP PO SCH (21:00)
[2023-04-11] MEDS: QUEtiapine FUMARATE 50MG TAB PO SCH (21:00)
[2023-04-12] MEDS: SUCRALFATE SUSP 1GM/10ML UD PO SCH ×4 (06:39→21:00)
[2023-04-12] MEDS: LORazepam 1 MG TAB PO SCH ×2 (09:00→21:00)
[2023-04-12] MEDS: SERTRALINE 100 MG TAB PO SCH (09:00)
[2023-04-12] MEDS: PANTOPRAZOLE 40MG TAB (PROTONIX) PO SCH (09:00)
[2023-04-12] MEDS: QUEtiapine FUMARATE 50MG TAB PO SCH (21:00)
[2023-04-12] MEDS: LITHIUM CARBONATE 150 MG CAP PO SCH (21:00)
[2023-04-13] MEDS: SUCRALFATE SUSP 1GM/10ML UD PO SCH ×4 (06:34→20:44)
[2023-04-13] MEDS: SERTRALINE HCL 50 MG TAB PO SCH ×2 (09:00→12:19)
[2023-04-13] MEDS: QUEtiapine FUMARATE 50MG TAB PO ONE ×2 (09:35→12:20)
[2023-04-13] MEDS: LITHIUM CARBONATE 300 MG CAP PO ONE ×2 (09:35→12:20)
[2023-04-13] MEDS: PANTOPRAZOLE 40MG TAB (PROTONIX) PO SCH (09:40)
[2023-04-13] MEDS: LORazepam 1 MG TAB PO SCH ×2 (09:40→20:44)
[2023-04-13 16:34] VITALS: BP 148/88; TEMP 98.1; O2SAT 96
[2023-04-13] MEDS: QUEtiapine FUMARATE 50MG TAB PO SCH (20:44)
[2023-04-13] MEDS: LITHIUM CARBONATE 150 MG CAP PO SCH (20:44)
[2023-04-14 06:13] VITALS: TEMP 97
[2023-04-14] MEDS: SUCRALFATE SUSP 1GM/10ML UD PO SCH ×4 (06:49→20:36)
[2023-04-14] MEDS: PANTOPRAZOLE 40MG TAB (PROTONIX) PO SCH (09:00)
[2023-04-14] MEDS: SERTRALINE HCL 50 MG TAB PO SCH (09:00)
[2023-04-14] MEDS: LORazepam 1 MG TAB PO SCH ×2 (09:00→20:35)
[2023-04-14] MEDS: LITHIUM CARBONATE 150 MG CAP PO SCH (20:36)
[2023-04-14] MEDS: QUEtiapine FUMARATE 50MG TAB PO SCH (20:36)
[2023-04-15] MEDS: SUCRALFATE SUSP 1GM/10ML UD PO SCH ×4 (06:33→21:00)
[2023-04-15] MEDS: LORazepam 1 MG TAB PO SCH ×2 (09:00→21:00)
[2023-04-15] MEDS: PANTOPRAZOLE 40MG TAB (PROTONIX) PO SCH (09:00)
[2023-04-15] MEDS: SERTRALINE HCL 50 MG TAB PO SCH (09:00)
[2023-04-15] MEDS: QUEtiapine FUMARATE 50MG TAB PO SCH (21:00)
[2023-04-15] MEDS: LITHIUM CARBONATE 150 MG CAP PO SCH (21:00)
[2023-04-16] MEDS: SUCRALFATE SUSP 1GM/10ML UD PO SCH ×4 (06:45→21:00)
[2023-04-16] MEDS: PANTOPRAZOLE 40MG TAB (PROTONIX) PO SCH (09:00)
[2023-04-16] MEDS: SERTRALINE HCL 50 MG TAB PO SCH (09:00)
[2023-04-16] MEDS: LORazepam 1 MG TAB PO SCH ×2 (09:00→20:59)
[2023-04-16] MEDS ORDERED: ACETAMINOPHEN TAB 650MG DOSE (2X325MG) PO PRN (12:05)
[2023-04-16 16:13] VITALS: BP 156/94; TEMP 98; O2SAT 100
[2023-04-16] MEDS: QUEtiapine FUMARATE 50MG TAB PO SCH (20:59)
[2023-04-16] MEDS: LITHIUM CARBONATE 150 MG CAP PO SCH (20:59)
[2023-04-17] MEDS: SUCRALFATE SUSP 1GM/10ML UD PO SCH ×4 (06:43→20:58)
[2023-04-17] MEDS: LORazepam 1 MG TAB PO SCH ×2 (09:00→20:58)
[2023-04-17] MEDS: SERTRALINE HCL 50 MG TAB PO SCH (09:00)
[2023-04-17] MEDS: PANTOPRAZOLE 40MG TAB (PROTONIX) PO SCH (09:00)
[2023-04-17] MEDS: LITHIUM CARBONATE 150 MG CAP PO SCH (20:58)
[2023-04-17] MEDS: QUEtiapine FUMARATE 50MG TAB PO SCH (20:58)
[2023-04-18] MEDS: SUCRALFATE SUSP 1GM/10ML UD PO SCH ×4 (06:41→21:00)
[2023-04-18] MEDS: PANTOPRAZOLE 40MG TAB (PROTONIX) PO SCH (09:00)
[2023-04-18] MEDS: LORazepam 1 MG TAB PO SCH ×2 (09:00→21:34)
[2023-04-18] MEDS: SERTRALINE HCL 50 MG TAB PO SCH (09:00)
[2023-04-18] MEDS: LITHIUM CARBONATE 150 MG CAP PO SCH (21:34)
[2023-04-18] MEDS: QUEtiapine FUMARATE 50MG TAB PO SCH (21:34)
[2023-04-19 06:17] VITALS: TEMP 96.1; O2SAT 98
[2023-04-19] MEDS: SUCRALFATE SUSP 1GM/10ML UD PO SCH ×4 (07:30→21:00)
[2023-04-19] MEDS: SERTRALINE HCL 50 MG TAB PO SCH (08:54)
[2023-04-19] MEDS: PANTOPRAZOLE 40MG TAB (PROTONIX) PO SCH (08:54)
[2023-04-19] MEDS: LORazepam 1 MG TAB PO SCH ×2 (08:54→21:00)
[2023-04-19] MEDS: LITHIUM CARBONATE 150 MG CAP PO SCH (21:00)
[2023-04-19] MEDS: QUEtiapine FUMARATE 50MG TAB PO SCH (21:00)
[2023-04-20] MEDS: SUCRALFATE SUSP 1GM/10ML UD PO SCH ×4 (07:30→21:00)
[2023-04-20] MEDS: PANTOPRAZOLE 40MG TAB (PROTONIX) PO SCH (08:14)
[2023-04-20] MEDS: LORazepam 1 MG TAB PO SCH ×2 (08:14→21:00)
[2023-04-20] MEDS: SERTRALINE HCL 50 MG TAB PO SCH (08:14)
[2023-04-20 08:45] VITALS: BP 156/94; TEMP 96.1; O2SAT 98
[2023-04-20] MEDS: LITHIUM CARBONATE 150 MG CAP PO SCH (21:00)
[2023-04-20] MEDS: QUEtiapine FUMARATE 50MG TAB PO SCH (21:00)
[2023-04-21] MEDS: SUCRALFATE SUSP 1GM/10ML UD PO SCH ×4 (06:50→21:00)
[2023-04-21] MEDS: LORazepam 1 MG TAB PO SCH ×2 (08:46→19:55)
[2023-04-21] MEDS: SERTRALINE HCL 50 MG TAB PO SCH (08:47)
[2023-04-21] MEDS: PANTOPRAZOLE 40MG TAB (PROTONIX) PO SCH (08:47)
[2023-04-21] MEDS: QUEtiapine FUMARATE 50MG TAB PO SCH (21:00)
[2023-04-21] MEDS: LITHIUM CARBONATE 150 MG CAP PO SCH (21:00)
[2023-04-22] MEDS: SUCRALFATE SUSP 1GM/10ML UD PO SCH ×4 (06:38→20:51)
[2023-04-22] MEDS: PANTOPRAZOLE 40MG TAB (PROTONIX) PO SCH (09:00)
[2023-04-22] MEDS: LORazepam 1 MG TAB PO SCH ×2 (09:00→20:51)
[2023-04-22] MEDS: SERTRALINE HCL 50 MG TAB PO SCH (09:00)
[2023-04-22] MEDS: LITHIUM CARBONATE 150 MG CAP PO SCH (20:51)
[2023-04-22] MEDS: QUEtiapine FUMARATE 50MG TAB PO SCH (20:51)
[2023-04-23] MEDS: SUCRALFATE SUSP 1GM/10ML UD PO SCH ×4 (06:34→19:39)
[2023-04-23] MEDS: PANTOPRAZOLE 40MG TAB (PROTONIX) PO SCH (09:00)
[2023-04-23] MEDS: SERTRALINE HCL 50 MG TAB PO SCH (09:00)
[2023-04-23] MEDS: LORazepam 1 MG TAB PO SCH ×2 (09:00→19:37)
[2023-04-23] MEDS: LITHIUM CARBONATE 150 MG CAP PO SCH (19:37)
[2023-04-23] MEDS: QUEtiapine FUMARATE 50MG TAB PO SCH (19:37)
[2023-04-24] MEDS: SUCRALFATE SUSP 1GM/10ML UD PO SCH ×4 (06:43→22:04)
[2023-04-24 06:45] VITALS: BP 152/90; TEMP 96.6; O2SAT 100
[2023-04-24] MEDS: LORazepam 1 MG TAB PO SCH ×2 (09:00→22:04)
[2023-04-24] MEDS: PANTOPRAZOLE 40MG TAB (PROTONIX) PO SCH (09:00)
[2023-04-24] MEDS: SERTRALINE HCL 50 MG TAB PO SCH (09:00)
[2023-04-24] MEDS: LITHIUM CARBONATE 150 MG CAP PO SCH (22:04)
[2023-04-24] MEDS: QUEtiapine FUMARATE 50MG TAB PO SCH (22:05)
[2023-04-25] MEDS: SUCRALFATE SUSP 1GM/10ML UD PO SCH ×4 (06:15→21:00)
[2023-04-25] MEDS: PANTOPRAZOLE 40MG TAB (PROTONIX) PO SCH (09:00)
[2023-04-25] MEDS: SERTRALINE HCL 50 MG TAB PO SCH (09:00)
[2023-04-25] MEDS: LORazepam 1 MG TAB PO SCH ×2 (09:00→22:06)
[2023-04-25] MEDS: QUEtiapine FUMARATE 50MG TAB PO SCH (22:07)
[2023-04-25] MEDS: LITHIUM CARBONATE 150 MG CAP PO SCH (22:07)
[2023-04-26] MEDS: SUCRALFATE SUSP 1GM/10ML UD PO SCH ×4 (06:35→21:00)
[2023-04-26] MEDS: SERTRALINE HCL 50 MG TAB PO SCH (09:00)
[2023-04-26] MEDS: LORazepam 1 MG TAB PO SCH ×2 (09:00→21:00)
[2023-04-26] MEDS: PANTOPRAZOLE 40MG TAB (PROTONIX) PO SCH (09:00)
[2023-04-26] MEDS: QUEtiapine FUMARATE 50MG TAB PO SCH (21:00)
[2023-04-26] MEDS: LITHIUM CARBONATE 150 MG CAP PO SCH (21:00)
[2023-04-27] MEDS: SUCRALFATE SUSP 1GM/10ML UD PO SCH ×4 (06:34→21:00)
[2023-04-27] MEDS: PANTOPRAZOLE 40MG TAB (PROTONIX) PO SCH (09:00)
[2023-04-27] MEDS: LORazepam 1 MG TAB PO SCH ×2 (09:00→21:00)
[2023-04-27] MEDS: SERTRALINE HCL 50 MG TAB PO SCH (09:00)
[2023-04-27] MEDS: QUEtiapine FUMARATE 50MG TAB PO SCH (21:00)
[2023-04-27] MEDS: LITHIUM CARBONATE 150 MG CAP PO SCH (21:00)
[2023-04-28] MEDS: SUCRALFATE SUSP 1GM/10ML UD PO SCH ×4 (06:33→20:38)
[2023-04-28] MEDS: SERTRALINE HCL 50 MG TAB PO SCH (09:00)
[2023-04-28] MEDS: PANTOPRAZOLE 40MG TAB (PROTONIX) PO SCH (09:00)
[2023-04-28] MEDS: LORazepam 1 MG TAB PO SCH ×2 (09:00→20:38)
[2023-04-28] MEDS: LITHIUM CARBONATE 150 MG CAP PO SCH (20:38)
[2023-04-28] MEDS: QUEtiapine FUMARATE 50MG TAB PO SCH (20:38)
[2023-04-29] MEDS: SUCRALFATE SUSP 1GM/10ML UD PO SCH ×4 (06:38→21:00)
[2023-04-29] MEDS: SERTRALINE HCL 50 MG TAB PO SCH (09:50)
[2023-04-29] MEDS: PANTOPRAZOLE 40MG TAB (PROTONIX) PO SCH (09:50)
[2023-04-29] MEDS: LORazepam 1 MG TAB PO SCH ×2 (09:51→20:03)
[2023-04-29 15:02] VITALS: BP 141/89
[2023-04-29 17:35] VITALS: BP 141/89; TEMP 97.7; O2SAT 97
[2023-04-29] MEDS: QUEtiapine FUMARATE 100 MG TAB PO SCH (20:03)
[2023-04-29] MEDS: LITHIUM CARBONATE 300 MG CAP PO SCH (20:03)
[2023-04-30] MEDS: SUCRALFATE SUSP 1GM/10ML UD PO SCH ×4 (06:38→21:00)
[2023-04-30 06:57] VITALS: BP 161/72; TEMP 97.4; O2SAT 99
[2023-04-30] MEDS: LORazepam 1 MG TAB PO SCH ×2 (11:18→21:37)
[2023-04-30] MEDS: SERTRALINE HCL 50 MG TAB PO SCH (11:19)
[2023-04-30] MEDS: PANTOPRAZOLE 40MG TAB (PROTONIX) PO SCH (11:19)
[2023-04-30] MEDS: LITHIUM CARBONATE 300 MG CAP PO SCH (21:37)
[2023-04-30] MEDS: QUEtiapine FUMARATE 100 MG TAB PO SCH (21:37)
[2023-05-01] MEDS: SUCRALFATE SUSP 1GM/10ML UD PO SCH ×4 (07:30→20:41)
[2023-05-01] MEDS: PANTOPRAZOLE 40MG TAB (PROTONIX) PO SCH (09:00)
[2023-05-01] MEDS: SERTRALINE HCL 50 MG TAB PO SCH (09:00)
[2023-05-01] MEDS: LORazepam 1 MG TAB PO SCH ×2 (09:00→20:41)
[2023-05-01] MEDS: QUEtiapine FUMARATE 100 MG TAB PO SCH (20:41)
[2023-05-01] MEDS: LITHIUM CARBONATE 300 MG CAP PO SCH (20:41)
[2023-05-02 06:14] VITALS: BP 133/89; TEMP 98.2; O2SAT 96
[2023-05-02] MEDS: SUCRALFATE SUSP 1GM/10ML UD PO SCH ×4 (06:32→21:00)
[2023-05-02] MEDS: PANTOPRAZOLE 40MG TAB (PROTONIX) PO SCH (09:00)
[2023-05-02] MEDS: SERTRALINE HCL 50 MG TAB PO SCH (09:00)
[2023-05-02] MEDS: LORazepam 1 MG TAB PO SCH ×2 (09:00→21:00)
[2023-05-02] MEDS: LITHIUM CARBONATE 300 MG CAP PO SCH (21:00)
[2023-05-02] MEDS: QUEtiapine FUMARATE 100 MG TAB PO SCH (21:00)
[2023-05-03] MEDS: SUCRALFATE SUSP 1GM/10ML UD PO SCH ×4 (06:33→20:19)
[2023-05-03] MEDS: PANTOPRAZOLE 40MG TAB (PROTONIX) PO SCH (09:00)
[2023-05-03] MEDS: LORazepam 1 MG TAB PO SCH ×2 (09:00→20:15)
[2023-05-03] MEDS: SERTRALINE HCL 50 MG TAB PO SCH (09:00)
[2023-05-03] MEDS ORDERED: TUBERCULIN PPD 5 UNITS/0.1 ML ID ONE ×2 (12:00)
[2023-05-03 19:22] VITALS: BP 150/78; TEMP 97.6
[2023-05-03] MEDS: LITHIUM CARBONATE 300 MG CAP PO SCH (20:15)
[2023-05-03] MEDS: QUEtiapine FUMARATE 100 MG TAB PO SCH (20:15)
[2023-05-04 06:21] VITALS: TEMP 97; O2SAT 95
[2023-05-04] MEDS: SUCRALFATE SUSP 1GM/10ML UD PO SCH ×4 (06:45→21:00)
[2023-05-04] MEDS: SERTRALINE HCL 50 MG TAB PO SCH (09:00)
[2023-05-04] MEDS: PANTOPRAZOLE 40MG TAB (PROTONIX) PO SCH (09:00)
[2023-05-04] MEDS: LORazepam 1 MG TAB PO SCH ×2 (09:00→21:00)
[2023-05-04] MEDS ORDERED: TUBERCULIN PPD 5 UNITS/0.1 ML ID ONE ×2 (10:00)
[2023-05-04] MEDS: QUEtiapine FUMARATE 100 MG TAB PO SCH (21:00)
[2023-05-04] MEDS: LITHIUM CARBONATE 300 MG CAP PO SCH (21:00)
[2023-05-05] MEDS: SUCRALFATE SUSP 1GM/10ML UD PO SCH ×4 (07:30→21:00)
[2023-05-05] MEDS: SERTRALINE HCL 50 MG TAB PO SCH (09:00)
[2023-05-05] MEDS: PANTOPRAZOLE 40MG TAB (PROTONIX) PO SCH (09:00)
[2023-05-05] MEDS: LORazepam 1 MG TAB PO SCH ×2 (09:00→21:00)
[2023-05-05] MEDS ORDERED: PPD DOCUMENTATION ENTRY MISC XX SCH ×2 (10:00)
[2023-05-05] MEDS ORDERED: PPD DOCUMENTATION ENTRY MISC XX ONE (12:00)
[2023-05-05] MEDS: LITHIUM CARBONATE 300 MG CAP PO SCH (21:00)
[2023-05-05] MEDS: QUEtiapine FUMARATE 100 MG TAB PO SCH (21:00)
[2023-05-06] MEDS: SUCRALFATE SUSP 1GM/10ML UD PO SCH ×4 (06:42→21:00)
[2023-05-06] MEDS: LORazepam 1 MG TAB PO SCH ×3 (09:00→21:00)
[2023-05-06] MEDS: PANTOPRAZOLE 40MG TAB (PROTONIX) PO SCH ×2 (09:00→17:12)
[2023-05-06] MEDS: SERTRALINE HCL 50 MG TAB PO SCH ×2 (09:00→10:46)
[2023-05-06] MEDS ORDERED: PPD DOCUMENTATION ENTRY MISC XX ONE (10:00)
[2023-05-06 20:29] VITALS: BP 140/90; TEMP 97.3
[2023-05-06] MEDS: QUEtiapine FUMARATE 100 MG TAB PO SCH (21:00)
[2023-05-06] MEDS: LITHIUM CARBONATE 300 MG CAP PO SCH (21:00)
[2023-05-07] MEDS: SUCRALFATE SUSP 1GM/10ML UD PO SCH ×4 (06:58→21:00)
[2023-05-07] MEDS: SERTRALINE HCL 50 MG TAB PO SCH (10:54)
[2023-05-07] MEDS: PANTOPRAZOLE 40MG TAB (PROTONIX) PO SCH (10:54)
[2023-05-07] MEDS: LORazepam 1 MG TAB PO SCH ×2 (10:54→21:00)
[2023-05-07] MEDS: LITHIUM CARBONATE 300 MG CAP PO SCH (21:00)
[2023-05-07] MEDS: QUEtiapine FUMARATE 100 MG TAB PO SCH (21:00)
[2023-05-08] MEDS: SUCRALFATE SUSP 1GM/10ML UD PO SCH ×4 (06:58→20:30)
[2023-05-08] MEDS: SERTRALINE HCL 50 MG TAB PO SCH (09:00)
[2023-05-08] MEDS: LORazepam 1 MG TAB PO SCH ×2 (09:00→20:30)
[2023-05-08] MEDS: PANTOPRAZOLE 40MG TAB (PROTONIX) PO SCH (09:00)
[2023-05-08] MEDS: QUEtiapine FUMARATE 100 MG TAB PO SCH (20:31)
[2023-05-08] MEDS: LITHIUM CARBONATE 300 MG CAP PO SCH (20:31)
[2023-05-09] MEDS: SUCRALFATE SUSP 1GM/10ML UD PO SCH ×4 (06:30→21:00)
[2023-05-09] MEDS: PANTOPRAZOLE 40MG TAB (PROTONIX) PO SCH (09:00)
[2023-05-09] MEDS: SERTRALINE HCL 50 MG TAB PO SCH (09:00)
[2023-05-09] MEDS: LORazepam 1 MG TAB PO SCH ×2 (09:00→21:00)
[2023-05-09] MEDS: LITHIUM CARBONATE 300 MG CAP PO SCH (21:00)
[2023-05-09] MEDS: QUEtiapine FUMARATE 100 MG TAB PO SCH (21:00)
[2023-05-10] MEDS: SUCRALFATE SUSP 1GM/10ML UD PO SCH ×4 (06:51→21:00)
[2023-05-10] MEDS: PANTOPRAZOLE 40MG TAB (PROTONIX) PO SCH (09:00)
[2023-05-10] MEDS: LORazepam 1 MG TAB PO SCH ×2 (09:00→21:00)
[2023-05-10] MEDS: SERTRALINE HCL 50 MG TAB PO SCH (09:00)
[2023-05-10] MEDS: QUEtiapine FUMARATE 100 MG TAB PO SCH (21:00)
[2023-05-10] MEDS: LITHIUM CARBONATE 300 MG CAP PO SCH (21:00)
[2023-05-11] MEDS: SUCRALFATE SUSP 1GM/10ML UD PO SCH ×4 (06:50→20:31)
[2023-05-11] MEDS: SERTRALINE HCL 50 MG TAB PO SCH (09:00)
[2023-05-11] MEDS: PANTOPRAZOLE 40MG TAB (PROTONIX) PO SCH (09:00)
[2023-05-11] MEDS: LORazepam 1 MG TAB PO SCH ×2 (09:00→20:31)
[2023-05-11] MEDS: QUEtiapine FUMARATE 100 MG TAB PO SCH (20:31)
[2023-05-11] MEDS: LITHIUM CARBONATE 300 MG CAP PO SCH (20:31)
[2023-05-12] MEDS: SUCRALFATE SUSP 1GM/10ML UD PO SCH ×4 (06:32→20:50)
[2023-05-12] MEDS: SERTRALINE HCL 50 MG TAB PO SCH (09:00)
[2023-05-12] MEDS: PANTOPRAZOLE 40MG TAB (PROTONIX) PO SCH (09:00)
[2023-05-12] MEDS: LORazepam 1 MG TAB PO SCH ×2 (09:00→20:50)
[2023-05-13] MEDS: SUCRALFATE SUSP 1GM/10ML UD PO SCH ×4 (06:31→21:00)
[2023-05-13] MEDS ORDERED: OLANZapine INTRAMUSCULAR 10MG VIAL IM SCH (09:00)
[2023-05-13] MEDS: FLUoxetine 20MG CAP PO SCH (09:00)
[2023-05-13] MEDS: PANTOPRAZOLE 40MG TAB (PROTONIX) PO SCH (09:00)
[2023-05-13] MEDS: LORazepam 1 MG TAB PO SCH ×2 (09:00→22:16)
[2023-05-14 06:25] VITALS: TEMP 97.5
[2023-05-14] MEDS: SUCRALFATE SUSP 1GM/10ML UD PO SCH ×4 (06:55→21:00)
[2023-05-14] MEDS ORDERED: OLANZapine 10 MG TAB PO SCH (09:00)
[2023-05-14] MEDS ORDERED: OLANZapine INTRAMUSCULAR 10MG VIAL IM PRN (09:00)
[2023-05-14] MEDS: PANTOPRAZOLE 40MG TAB (PROTONIX) PO SCH (10:31)
[2023-05-14] MEDS: FLUoxetine 20MG CAP PO SCH (10:31)
[2023-05-14] MEDS: LORazepam 1 MG TAB PO SCH ×2 (10:31→21:00)
[2023-05-15] MEDS: SUCRALFATE SUSP 1GM/10ML UD PO SCH ×4 (06:58→20:38)
[2023-05-15] MEDS: OLANZapine INTRAMUSCULAR 10MG VIAL IM PRN (10:10)
[2023-05-15] MEDS: OLANZapine 5 MG TAB PO SCH (10:16)
[2023-05-15] MEDS: PANTOPRAZOLE 40MG TAB (PROTONIX) PO SCH (10:16)
[2023-05-15] MEDS: LORazepam 1 MG TAB PO SCH ×2 (10:16→20:33)
[2023-05-15] MEDS: FLUoxetine 20MG CAP PO SCH (10:16)
[2023-05-15] MEDS: traZODone 50 MG TAB PO PRN (20:35)
[2023-05-16] MEDS: SUCRALFATE SUSP 1GM/10ML UD PO SCH ×4 (06:53→21:00)
[2023-05-16] MEDS: FLUoxetine 20MG CAP PO SCH (09:00)
[2023-05-16] MEDS: OLANZapine 5 MG TAB PO SCH (09:00)
[2023-05-16] MEDS: PANTOPRAZOLE 40MG TAB (PROTONIX) PO SCH (09:00)
[2023-05-16] MEDS: LORazepam 1 MG TAB PO SCH ×2 (09:00→21:00)
[2023-05-16] MEDS: OLANZapine INTRAMUSCULAR 10MG VIAL IM PRN (09:43)
[2023-05-17] MEDS: SUCRALFATE SUSP 1GM/10ML UD PO SCH ×4 (06:33→20:38)
[2023-05-17] MEDS: PANTOPRAZOLE 40MG TAB (PROTONIX) PO SCH (09:00)
[2023-05-17] MEDS: FLUoxetine 20MG CAP PO SCH (09:00)
[2023-05-17] MEDS: LORazepam 1 MG TAB PO SCH (09:00)
[2023-05-17] MEDS: OLANZapine 5 MG TAB PO SCH (09:00)
[2023-05-17] MEDS: OLANZapine INTRAMUSCULAR 10MG VIAL IM PRN (10:31)
[2023-05-17] MEDS: traZODone 50 MG TAB PO PRN (20:20)
[2023-05-18] MEDS: SUCRALFATE SUSP 1GM/10ML UD PO SCH ×4 (07:30→21:00)
[2023-05-18] MEDS: PANTOPRAZOLE 40MG TAB (PROTONIX) PO SCH (09:00)
[2023-05-18] MEDS: FLUoxetine 20MG CAP PO SCH (09:00)
[2023-05-18] MEDS: OLANZapine 5 MG TAB PO SCH (09:00)
[2023-05-18] MEDS: OLANZapine INTRAMUSCULAR 10MG VIAL IM PRN (11:52)
[2023-05-19] MEDS: SUCRALFATE SUSP 1GM/10ML UD PO SCH ×4 (07:30→21:00)
[2023-05-19] MEDS: PANTOPRAZOLE 40MG TAB (PROTONIX) PO SCH (09:00)
[2023-05-19] MEDS: FLUoxetine 20MG CAP PO SCH (09:00)
[2023-05-19] MEDS: OLANZapine 5 MG TAB PO SCH (09:00)
[2023-05-19] MEDS: OLANZapine INTRAMUSCULAR 10MG VIAL IM PRN (15:01)
[2023-05-20] MEDS ORDERED: OLANZapine INTRAMUSCULAR 10MG VIAL IM PRN (04:50)
[2023-05-20] MEDS: SUCRALFATE SUSP 1GM/10ML UD PO SCH ×4 (06:55→20:54)
[2023-05-20] MEDS: PANTOPRAZOLE 40MG TAB (PROTONIX) PO SCH (09:00)
[2023-05-20] MEDS ORDERED: OLANZapine 10 MG TAB PO SCH (09:00)
[2023-05-20] MEDS: FLUoxetine 20MG CAP PO SCH (10:29)
[2023-05-20] MEDS: OLANZapine 10 MG TAB PO SCH ×2 (12:36→21:00)
[2023-05-20 16:08] VITALS: TEMP 97.6
[2023-05-20] MEDS: OLANZapine INTRAMUSCULAR 10MG VIAL IM PRN (21:49)
[2023-05-21] MEDS: SUCRALFATE SUSP 1GM/10ML UD PO SCH ×4 (06:31→20:46)
[2023-05-21] MEDS: PANTOPRAZOLE 40MG TAB (PROTONIX) PO SCH (09:00)
[2023-05-21] MEDS: OLANZapine 10 MG TAB PO SCH ×2 (09:56→21:15)
[2023-05-21] MEDS: FLUoxetine 20MG CAP PO SCH (09:56)
[2023-05-22 05:42] VITALS: TEMP 97.7; O2SAT 96
[2023-05-22] MEDS: SUCRALFATE SUSP 1GM/10ML UD PO SCH ×4 (06:30→20:32)
[2023-05-22] MEDS: PANTOPRAZOLE 40MG TAB (PROTONIX) PO SCH (09:00)
[2023-05-22] MEDS: FLUoxetine 20MG CAP PO SCH (09:51)
[2023-05-22] MEDS: OLANZapine 10 MG TAB PO SCH ×2 (09:51→20:40)
[2023-05-23] MEDS: SUCRALFATE SUSP 1GM/10ML UD PO SCH ×4 (06:33→21:00)
[2023-05-23] MEDS: FLUoxetine 20MG CAP PO SCH (09:00)
[2023-05-23] MEDS: PANTOPRAZOLE 40MG TAB (PROTONIX) PO SCH (09:00)
[2023-05-23] MEDS: OLANZapine 10 MG TAB PO SCH (09:00)
[2023-05-23] MEDS: OLANZapine INTRAMUSCULAR 10MG VIAL IM PRN (10:19)
[2023-05-23] MEDS ORDERED: BENZTROPINE 1 MG TAB PO PRN (11:40)
[2023-05-23] MEDS: LITHIUM CARBONATE 150 MG CAP PO SCH (21:06)
[2023-05-24] MEDS: SUCRALFATE SUSP 1GM/10ML UD PO SCH ×4 (07:30→21:00)
[2023-05-24] MEDS: FLUoxetine 20MG CAP PO SCH (09:00)
[2023-05-24] MEDS: LITHIUM CARBONATE 150 MG CAP PO SCH ×2 (09:00→20:53)
[2023-05-24] MEDS: PANTOPRAZOLE 40MG TAB (PROTONIX) PO SCH (09:00)
[2023-05-24] MEDS: PALIPERIDONE 3MG ER TAB (INVEGA) PO SCH (09:00)
[2023-05-24] MEDS: LORazepam 2 MG/ML 1ML VIAL IM PRN (09:58)
[2023-05-24 16:43] VITALS: BP 155/96; TEMP 97.1; O2SAT 99
[2023-05-25] MEDS: SUCRALFATE SUSP 1GM/10ML UD PO SCH ×4 (07:30→20:43)
[2023-05-25] MEDS: FLUoxetine 20MG CAP PO SCH (09:00)
[2023-05-25] MEDS: PANTOPRAZOLE 40MG TAB (PROTONIX) PO SCH (09:00)
[2023-05-25] MEDS: PALIPERIDONE 3MG ER TAB (INVEGA) PO SCH (09:00)
[2023-05-25] MEDS: LITHIUM CARBONATE 150 MG CAP PO SCH ×2 (09:00→20:41)
[2023-05-25] MEDS: LORazepam 2 MG/ML 1ML VIAL IM PRN (10:19)
[2023-05-26 06:04] VITALS: TEMP 98.5
[2023-05-26] MEDS: SUCRALFATE SUSP 1GM/10ML UD PO SCH ×4 (06:34→20:46)
[2023-05-26] MEDS: PANTOPRAZOLE 40MG TAB (PROTONIX) PO SCH (08:38)
[2023-05-26] MEDS: FLUoxetine 20MG CAP PO SCH (09:00)
[2023-05-26] MEDS: LORazepam 0.5 MG TAB PO SCH ×2 (09:57→20:55)
[2023-05-26] MEDS: PALIPERIDONE 3MG ER TAB (INVEGA) PO SCH (09:57)
[2023-05-26] MEDS: LITHIUM CARBONATE 150 MG CAP PO SCH ×2 (09:57→20:55)
[2023-05-26] MEDS: LORazepam 2 MG/ML 1ML VIAL IM PRN (21:05)
[2023-05-27 06:27] VITALS: TEMP 97.1
[2023-05-27] MEDS: SUCRALFATE SUSP 1GM/10ML UD PO SCH ×4 (06:42→20:46)
[2023-05-27] MEDS: LORazepam 0.5 MG TAB PO SCH ×2 (09:00→20:45)
[2023-05-27] MEDS: PANTOPRAZOLE 40MG TAB (PROTONIX) PO SCH (09:00)
[2023-05-27] MEDS: PALIPERIDONE 3MG ER TAB (INVEGA) PO SCH (09:00)
[2023-05-27] MEDS: LITHIUM CARBONATE 150 MG CAP PO SCH ×2 (09:00→20:45)
[2023-05-27] MEDS: LORazepam 2 MG/ML 1ML VIAL IM PRN (09:52)
[2023-05-27] MEDS: FLUoxetine 20MG CAP PO SCH (10:00)
[2023-05-27 15:03] VITALS: BP 182/104; TEMP 98.1; O2SAT 100
[2023-05-27 15:15] VITALS: BP_SYST 170; BP_SYST 182; BP_DIAS 110; BP_DIAS 98
[2023-05-27] MEDS ORDERED: NAPROXEN 250 MG TAB PO ONE (16:00)
[2023-05-27] MEDS ORDERED: NORCO, ANEXSIA 5/325MG TABLET (HYDROcodone/ACETAMINOPHEN) PO ONE (17:10)
[2023-05-27] MEDS: LIDOCAINE 5% (LIDODERM) PATCH TD SCH (17:31)
[2023-05-27 17:58] LABS: BASO % 0.5 % (0.0-1.0); EOS # 0.2 10^3/uL (0.0-0.5); EOS % 2.4 % (0.0-3.0); HEMATOCRIT 38.9 % (36.0-47.0); HEMOGLOBIN 12.4 g/dl (12.0-15.5); LYMPH # 1.8 10^3/uL (1.5-5.0); LYMPH % 21.4 % (24.0-44.0); MEAN CORPUSCULAR HEMOGLOBIN 27.7 pg (27.0-33.0); MEAN CORPUSCULAR HGB CONC 31.9 g/dl (32.0-36.5); MEAN CORPUSCULAR VOLUME 86.8 fl (80.0-96.0); MONO # 0.5 10^3/uL (0.0-0.8); MONO % 5.8 % (2.0-8.0); NEUTROPHILS # 5.7 10^3/uL (1.5-8.5); NEUTROPHILS % 69.7 % (36.0-66.0); PLATELET COUNT, AUTOMATED 186 10^3/uL (150-450); RED BLOOD COUNT 4.48 10^6/uL (4.00-5.40); WHITE BLOOD COUNT 8.2 10^3/uL (4.0-10.0)
[2023-05-27 18:24] LABS: BLOOD UREA NITROGEN 15 MG/DL (9-23); CALCIUM LEVEL 9.4 MG/DL (8.3-10.6); CARBON DIOXIDE LEVEL 27 MMOL/L (20-31); CHLORIDE LEVEL 108 MMOL/L (98-107); GLOMERULAR FILTRATION RATE > 60.0 (>45); GLUCOSE, FASTING 80 MG/DL (74-106); MAGNESIUM LEVEL 1.9 MG/DL (1.8-2.4); POTASSIUM SERUM 3.7 MMOL/L (3.5-5.1); SODIUM LEVEL 144 MMOL/L (136-145)
[2023-05-28] MEDS: SUCRALFATE SUSP 1GM/10ML UD PO SCH ×4 (06:28→21:00)
[2023-05-28] MEDS: PALIPERIDONE 3MG ER TAB (INVEGA) PO SCH (08:46)
[2023-05-28] MEDS: LITHIUM CARBONATE 150 MG CAP PO SCH ×2 (08:47→21:14)
[2023-05-28] MEDS: FLUoxetine 20MG CAP PO SCH (08:47)
[2023-05-28] MEDS: amLODIPine 5 MG TAB PO SCH (08:48)
[2023-05-28] MEDS: NAPROXEN 250 MG TAB PO SCH ×2 (08:51→21:21)
[2023-05-28] MEDS: LORazepam 0.5 MG TAB PO SCH ×2 (08:51→21:14)
[2023-05-28] MEDS: PANTOPRAZOLE 40MG TAB (PROTONIX) PO SCH (08:51)
[2023-05-28] MEDS: LIDOCAINE 5% (LIDODERM) PATCH TD SCH (08:51)
[2023-05-28 08:54] VITALS: BP 188/110
[2023-05-28 09:15] VITALS: BP 152/92
[2023-05-28] MEDS ORDERED: ACETAMINOPHEN 500 MG TAB PO PRN (14:00)
[2023-05-29] MEDS: SUCRALFATE SUSP 1GM/10ML UD PO SCH ×4 (06:32→20:47)
[2023-05-29] MEDS: PALIPERIDONE 3MG ER TAB (INVEGA) PO SCH ×2 (08:57→09:00)
[2023-05-29] MEDS: LITHIUM CARBONATE 150 MG CAP PO SCH ×3 (08:57→20:41)
[2023-05-29] MEDS: NAPROXEN 250 MG TAB PO SCH ×3 (08:58→21:18)
[2023-05-29] MEDS: LORazepam 0.5 MG TAB PO SCH ×3 (08:58→20:41)
[2023-05-29] MEDS: FLUoxetine 20MG CAP PO SCH ×2 (08:58→09:00)
[2023-05-29] MEDS: amLODIPine 5 MG TAB PO SCH ×2 (08:59→09:00)
[2023-05-29] MEDS: PANTOPRAZOLE 40MG TAB (PROTONIX) PO SCH (09:00)
[2023-05-29] MEDS: LORazepam 2 MG/ML 1ML VIAL IM PRN (10:02)
[2023-05-29] MEDS: ACETAMINOPHEN 500 MG TAB PO SCH ×2 (15:23→21:00)
[2023-05-30 06:20] VITALS: TEMP 98.6
[2023-05-30] MEDS: SUCRALFATE SUSP 1GM/10ML UD PO SCH ×4 (06:34→20:56)
[2023-05-30] MEDS: FLUoxetine 20MG CAP PO SCH ×2 (09:00→14:41)
[2023-05-30] MEDS: amLODIPine 5 MG TAB PO SCH (09:00)
[2023-05-30] MEDS: PANTOPRAZOLE 40MG TAB (PROTONIX) PO SCH (09:00)
[2023-05-30] MEDS: LORazepam 0.5 MG TAB PO SCH ×2 (09:46→20:49)
[2023-05-30] MEDS: PALIPERIDONE 3MG ER TAB (INVEGA) PO SCH (09:46)
[2023-05-30] MEDS: LITHIUM CARBONATE 150 MG CAP PO SCH ×2 (09:46→20:49)
[2023-05-30] MEDS: NAPROXEN 250 MG TAB PO SCH ×2 (10:29→20:54)
[2023-05-30] MEDS: ACETAMINOPHEN 500 MG TAB PO SCH ×3 (10:30→20:57)
[2023-05-31] MEDS: SUCRALFATE SUSP 1GM/10ML UD PO SCH ×4 (06:30→20:37)
[2023-05-31] MEDS: PANTOPRAZOLE 40MG TAB (PROTONIX) PO SCH (09:00)
[2023-05-31] MEDS: LORazepam 0.5 MG TAB PO SCH ×2 (09:00→20:44)
[2023-05-31] MEDS: PALIPERIDONE 3MG ER TAB (INVEGA) PO SCH (09:00)
[2023-05-31] MEDS: FLUoxetine 20MG CAP PO SCH (09:00)
[2023-05-31] MEDS: amLODIPine 5 MG TAB PO SCH (09:00)
[2023-05-31 13:59] LABS: BASO % 0.5 % (0.0-1.0); EOS # 0.3 10^3/uL (0.0-0.5); EOS % 4.7 % (0.0-3.0); HEMATOCRIT 40.6 % (36.0-47.0); HEMOGLOBIN 12.8 g/dl (12.0-15.5); LYMPH # 1.9 10^3/uL (1.5-5.0); LYMPH % 33.6 % (24.0-44.0); MEAN CORPUSCULAR HEMOGLOBIN 27.4 pg (27.0-33.0); MEAN CORPUSCULAR HGB CONC 31.5 g/dl (32.0-36.5); MEAN CORPUSCULAR VOLUME 86.8 fl (80.0-96.0); MONO # 0.4 10^3/uL (0.0-0.8); MONO % 6.1 % (2.0-8.0); NEUTROPHILS # 3.1 10^3/uL (1.5-8.5); NEUTROPHILS % 54.8 % (36.0-66.0); PLATELET COUNT, AUTOMATED 205 10^3/uL (150-450); RED BLOOD COUNT 4.68 10^6/uL (4.00-5.40); WHITE BLOOD COUNT 5.7 10^3/uL (4.0-10.0)
[2023-05-31 14:27] LABS: THYROID STIMULATING HORMONE 2.832 uIU/ML (0.55-4.78); THYROXINE (T4) 8.4 UG/DL (4.5-10.9)
[2023-05-31 14:28] LABS: FREE THYROXINE INDEX 2.5 % (1.3-4.8); T UPTAKE 30.1 % (22.5-37.0)
[2023-05-31] MEDS: LORazepam 2 MG/ML 1ML VIAL IM PRN (14:29)
[2023-05-31 14:30] LABS: ALBUMIN 3.7 G/DL (3.2-5.2); ALKALINE PHOSPHATASE 108 U/L (46-116); ALT/SGPT 20 U/L (7.0-40); AST/SGOT 21 U/L (<34); BILIRUBIN,TOTAL 0.2 MG/DL (0.3-1.2); BLOOD UREA NITROGEN 18 MG/DL (9-23); CALCIUM LEVEL 9.6 MG/DL (8.3-10.6); CARBON DIOXIDE LEVEL 26 MMOL/L (20-31); CHLORIDE LEVEL 106 MMOL/L (98-107); CREATININE FOR GFR 0.93 MG/DL (0.55-1.30); GLOMERULAR FILTRATION RATE > 60.0 (>45); GLUCOSE, FASTING 85 MG/DL (74-106); POTASSIUM SERUM 3.8 MMOL/L (3.5-5.1); SODIUM LEVEL 140 MMOL/L (136-145); TOTAL PROTEIN 6.9 G/DL (5.7-8.2)
[2023-05-31] MEDS: LITHIUM CARBONATE 150 MG CAP PO SCH (20:39)
[2023-06-01] MEDS: SUCRALFATE SUSP 1GM/10ML UD PO SCH ×4 (06:31→21:00)
[2023-06-01] MEDS: amLODIPine 5 MG TAB PO SCH ×2 (09:00→09:49)
[2023-06-01] MEDS: FLUoxetine 20MG CAP PO SCH (09:00)
[2023-06-01] MEDS: PANTOPRAZOLE 40MG TAB (PROTONIX) PO SCH (09:00)
[2023-06-01] MEDS: LORazepam 0.5 MG TAB PO SCH ×2 (09:17→21:22)
[2023-06-01] MEDS: PALIPERIDONE 3MG ER TAB (INVEGA) PO SCH (09:17)
[2023-06-01 09:58] VITALS: BP 200/100
[2023-06-01] MEDS ORDERED: cloNIDine 0.1MG TABLET PO ONE (10:10)
[2023-06-01] MEDS ORDERED: amLODIPine 5 MG TAB PO ONE (10:20)
[2023-06-01 10:26] VITALS: BP 170/100
[2023-06-01 11:13] VITALS: BP 138/98
[2023-06-01 11:21] LABS: HEMATOCRIT 39.4 % (36.0-47.0); HEMOGLOBIN 12.3 g/dl (12.0-15.5); MEAN CORPUSCULAR HEMOGLOBIN 27.6 pg (27.0-33.0); MEAN CORPUSCULAR HGB CONC 31.2 g/dl (32.0-36.5); MEAN CORPUSCULAR VOLUME 88.3 fl (80.0-96.0); PLATELET COUNT, AUTOMATED 179 10^3/uL (150-450); RED BLOOD COUNT 4.46 10^6/uL (4.00-5.40)
[2023-06-01 11:44] LABS: BLOOD UREA NITROGEN 19 MG/DL (9-23); CALCIUM LEVEL 9.5 MG/DL (8.3-10.6); CARBON DIOXIDE LEVEL 27 MMOL/L (20-31); CHLORIDE LEVEL 109 MMOL/L (98-107); CREATININE FOR GFR 0.98 MG/DL (0.55-1.30); GLOMERULAR FILTRATION RATE > 60.0 (>45); GLUCOSE, FASTING 68 MG/DL (74-106); POTASSIUM SERUM 3.8 MMOL/L (3.5-5.1); SODIUM LEVEL 143 MMOL/L (136-145)
[2023-06-01 11:46] LABS: THYROID STIMULATING HORMONE 2.658 uIU/ML (0.55-4.78)
[2023-06-01] MEDS: LIDOCAINE 5% (LIDODERM) PATCH TD SCH (12:11)
[2023-06-01 12:30] VITALS: BP 140/90
[2023-06-01] MEDS ORDERED: CAPTOpril 6.25 MG PER 1/2 TABLET PO SCH (14:00)
[2023-06-01 15:46] VITALS: BP 138/80
[2023-06-01 16:12] VITALS: BP 138/80; TEMP 97.2
[2023-06-01] MEDS: CLOTRIMAZOLE 1% TOPICAL CREAM 30GM TOP SCH (21:00)
[2023-06-01] MEDS: LITHIUM CARBONATE 150 MG CAP PO SCH (21:23)
[2023-06-02] MEDS: SUCRALFATE SUSP 1GM/10ML UD PO SCH ×2 (07:24→08:41)
[2023-06-02] MEDS: PALIPERIDONE 3MG ER TAB (INVEGA) PO SCH (08:40)
[2023-06-02] MEDS: LORazepam 0.5 MG TAB PO SCH (08:40)
[2023-06-02] MEDS: LIDOCAINE 5% (LIDODERM) PATCH TD SCH (08:41)
[2023-06-02] MEDS: PANTOPRAZOLE 40MG TAB (PROTONIX) PO SCH (08:41)
[2023-06-02] MEDS: CLOTRIMAZOLE 1% TOPICAL CREAM 30GM TOP SCH (08:41)
[2023-06-02] MEDS: FLUoxetine 20MG CAP PO SCH (08:41)
[2023-06-02] MEDS: LORazepam 2 MG/ML 1ML VIAL IM PRN (08:51)
[2023-06-02] MEDS ORDERED: CHLORTHALIDONE 12.5MG PER 1/2 TABLET PO SCH (09:00)
[2023-06-02 09:29] VITALS: BP 136/80
[2023-06-02] MEDS ORDERED: PANT40TA29 PO (10:24)
[2023-06-02] MEDS ORDERED: CLOTR1CR TOP (10:24)
[2023-06-02] MEDS ORDERED: BENZ1TAB5 PO (10:24)
[2023-06-02] MEDS ORDERED: AMLO1TAB25 PO (10:24)
[2023-06-02] MEDS ORDERED: SUCR1ORA PO (10:24)
[2023-06-02] MEDS ORDERED: FLUO20CA22 PO (10:24)
[2023-06-02] MEDS ORDERED: ATIV1TAB10 PO (10:24)
[2023-06-02] MEDS ORDERED: LIDO5TD TD (10:24)
[2023-06-02] MEDS ORDERED: LITH150C PO (10:24)
[2023-06-02] MEDS ORDERED: PALI1TAB2 PO (10:24)
[2023-06-02] MEDS ORDERED: CHLO125TA PO (10:24)
[2023-06-02 13:45] VITALS: BP 180/95; TEMP 97.9; O2SAT 100
[2023-06-02 16:52] LABS: LITHIUM LEVEL 0.39 MMOL/L (1.0-1.20)
== END 2023-06-02 13:46 | DRG 885 ==
LOC: M PSY 14:34
PROVIDERS: ADMIT Student in an Organized Health Care Education/Training Program; ATTEND Student in an Organized Health Care Education/Training Program
DX: F25.0 Schizoaffective disorder, bipolar type (principal); E11.9 Type 2 diabetes mellitus without complications; I10 Essential (primary) hypertension; I25.10 Atherosclerotic heart disease of native coronary artery without angina pectoris; G47.33 Obstructive sleep apnea (adult) (pediatric); M48.00 Spinal stenosis, site unspecified; M51.36 Other intervertebral disc degeneration, lumbar region; M54.81 Occipital neuralgia; M54.2 Cervicalgia; M47.892 Other spondylosis, cervical region; Z20.822 Contact with and (suspected) exposure to COVID-19; Z79.899 Other long term (current) drug therapy; Z88.7 Allergy status to serum and vaccine; Z88.8 Allergy status to other drugs, medicaments and biological substances; R41.9 Unspecified symptoms and signs involving cognitive functions and awareness; S70.01XA Contusion of right hip, initial encounter; W01.0XXA Fall on same level from slipping, tripping and stumbling without subsequent striking against object, initial encounter; Y92.230 Patient room in hospital as the place of occurrence of the external cause

== ENCOUNTER 2024-03-23 23:51 | Emergency (ER) | payer MEDICARE, MEDICAID ==
[~2024-03-23] VITALS: Ht 162.6 cm; Wt 93.0 kg
[~2024-03-23 23:51] MED LIST changes: -CLOB10TA15 PO; +CLOB10TA3 PO; +CLOTR1CR TOP; +FLUO-365 PO; -FLUO20CA22 PO; +LIDO5TD TD; +ONDA-282 PO; -ONDA4TAB6 PO; +PALI1TAB2 PO; +PANT40TA29 PO; +RISP-105 PO; +RISP-106 PO; -RISP-8 PO; -RISP-9 PO; +SUCR1ORA PO; +TOPI-21 PO; -TOPI-254 PO
[2024-03-24 00:11] VITALS: TEMP 98.2
[2024-03-24] MEDS: ASPIRIN 81MG CHEW TABLET PO ONE (00:40)
[2024-03-24] MEDS: NITROGLYCERIN 0.4MG SUBL TABLET SL PRN (00:41)
[2024-03-24 00:44] LABS: BASO # 0.1 10^3/uL (0.0-0.2); BASO % 0.5 % (0.0-1.0); EOS # 0.3 10^3/uL (0.0-0.5); EOS % 2.4 % (0.0-3.0); HEMATOCRIT 36.9 % (36.0-47.0); LYMPH % 28.6 % (24.0-44.0); MEAN CORPUSCULAR HEMOGLOBIN 26.9 pg (27.0-33.0); MEAN CORPUSCULAR HGB CONC 32.5 g/dl (32.0-36.5); MEAN CORPUSCULAR VOLUME 82.7 fl (80.0-96.0); MONO # 0.8 10^3/uL (0.0-0.8); MONO % 7.9 % (2.0-8.0); NEUTROPHILS # 6.4 10^3/uL (1.5-8.5); NEUTROPHILS % 60.1 % (36.0-66.0); PLATELET COUNT, AUTOMATED 245 10^3/uL (150-450); RED BLOOD COUNT 4.46 10^6/uL (4.00-5.40); WHITE BLOOD COUNT 10.6 10^3/uL (4.0-10.0)
[2024-03-24 00:56] LABS: CREATININE FOR GFR 1.19 MG/DL (0.55-1.30); GLOMERULAR FILTRATION RATE 48.8 (>45); POTASSIUM SERUM 3.6 MMOL/L (3.5-5.1)
[2024-03-24 00:59] LABS: MB/CK RELATIVE INDEX 1.57 (< OR =4)
[2024-03-24 01:22] VITALS: BP 154/79
[2024-03-24 02:33] LABS: CK-MB VALUE MASS 2.1 NG/ML (<3.6); MB/CK RELATIVE INDEX 2.23 (< OR =4)
[2024-03-24 03:30] VITALS: BP 181/84; O2SAT 93
[2024-03-24] MEDS: CHLORTHALIDONE 12.5MG PER 1/2 TABLET PO ONE (03:55)
== END 2024-03-24 04:04 | disposition home or self-care (01) ==
LOC: EDBD 23:51 → M ED 23:51
DX: I10 Essential (primary) hypertension (principal); R07.89 Other chest pain; I45.10 Unspecified right bundle-branch block; I44.4 Left anterior fascicular block; I25.119 Atherosclerotic heart disease of native coronary artery with unspecified angina pectoris; I25.2 Old myocardial infarction; K21.9 Gastro-esophageal reflux disease without esophagitis; F32.A Depression, unspecified; F20.9 Schizophrenia, unspecified; F17.210 Nicotine dependence, cigarettes, uncomplicated; Z88.7 Allergy status to serum and vaccine; Z88.8 Allergy status to other drugs, medicaments and biological substances; Z79.899 Other long term (current) drug therapy

== ENCOUNTER → 2024-04-09 | Outpatient (REF) | payer MEDICARE, MEDICAID ==
[2024-04-09 18:15] LABS: BASO % 0.4 % (0.0-1.0); EOS # 0.2 10^3/uL (0.0-0.5); EOS % 2.3 % (0.0-3.0); HEMATOCRIT 42.1 % (36.0-47.0); HEMOGLOBIN 13.5 g/dl (12.0-15.5); LYMPH # 1.9 10^3/uL (1.5-5.0); LYMPH % 18.1 % (24.0-44.0); MEAN CORPUSCULAR HEMOGLOBIN 26.6 pg (27.0-33.0); MEAN CORPUSCULAR HGB CONC 32.1 g/dl (32.0-36.5); MONO # 0.7 10^3/uL (0.0-0.8); MONO % 6.3 % (2.0-8.0); NEUTROPHILS # 7.6 10^3/uL (1.5-8.5); NEUTROPHILS % 72.6 % (36.0-66.0); PLATELET COUNT, AUTOMATED 293 10^3/uL (150-450); RED BLOOD COUNT 5.07 10^6/uL (4.00-5.40); WHITE BLOOD COUNT 10.5 10^3/uL (4.0-10.0)
[2024-04-09 18:24] LABS: THYROID STIMULATING HORMONE 1.687 uIU/ML (0.55-4.78); TOTAL 25(OH) VITAMIN D 28.6 NG/ML (20.0-100.0)
[2024-04-09 18:25] LABS: ALBUMIN 3.4 G/DL (3.2-5.2); BILIRUBIN,TOTAL 0.2 MG/DL (0.3-1.2); CALCIUM LEVEL 9.2 MG/DL (8.3-10.6); CHOLESTEROL RISK RATIO 4.88 (<5); CREATININE FOR GFR 1.38 MG/DL (0.55-1.30); GLOMERULAR FILTRATION RATE 41.1 (>45); HDL CHOLESTEROL 40.3 MG/DL (>40); LDL CHOLESTEROL 100.1 MG/DL (<100); NON-HDL-C 156.7 MG/DL; POTASSIUM SERUM 3.5 MMOL/L (3.5-5.1); TOTAL PROTEIN 6.6 G/DL (5.7-8.2)
[2024-04-09 18:54] LABS: HEMOGLOBIN A1c 6.1 % (4.0-6.0)
== END ==
LOC: M SFHCCLAY 14:19
PROVIDERS: ATTEND Physician Assistant Medical
DX: E11.9 Type 2 diabetes mellitus without complications (principal); E87.6 Hypokalemia; I25.10 Atherosclerotic heart disease of native coronary artery without angina pectoris; I10 Essential (primary) hypertension; E55.9 Vitamin D deficiency, unspecified; R07.9 Chest pain, unspecified

== ENCOUNTER 2024-06-11 09:37 | Emergency (ER) | payer MEDICARE, MEDICAID ==
[~2024-06-11 09:37] MED LIST changes: +GABA-1172 PO; +GABA-1490; +GABA-1490 PO; -GABA-282 PO; -GABA600T4; -GABA600T4 PO; -OLAN15TA13 PO; +OLAN15TA69 PO; -SIME180C25 PO; +SIME1CAP4 PO
[2024-06-11 10:10] VITALS: BP 145/64; TEMP 97.5; O2SAT 97
== END 2024-06-11 12:39 | disposition left against medical advice (07) ==
LOC: EDBD 09:37 → M ED 09:37
DX: S79.912A Unspecified injury of left hip, initial encounter (principal); Y92.9 Unspecified place or not applicable; Y93.9 Activity, unspecified; Y99.9 Unspecified external cause status; K21.9 Gastro-esophageal reflux disease without esophagitis; E78.5 Hyperlipidemia, unspecified; E11.9 Type 2 diabetes mellitus without complications; I12.9 Hypertensive chronic kidney disease with stage 1 through stage 4 chronic kidney disease, or unspecified chronic kidney disease; G47.33 Obstructive sleep apnea (adult) (pediatric); F41.9 Anxiety disorder, unspecified; F32.A Depression, unspecified; F25.9 Schizoaffective disorder, unspecified; F17.210 Nicotine dependence, cigarettes, uncomplicated; Z88.7 Allergy status to serum and vaccine; Z88.8 Allergy status to other drugs, medicaments and biological substances; Z79.899 Other long term (current) drug therapy; Z53.9 Procedure and treatment not carried out, unspecified reason

== ENCOUNTER 2024-06-11 13:58 | Emergency (ER) | payer MEDICARE, MEDICAID ==
[~2024-06-11] VITALS: Ht 162.6 cm; Wt 82.5 kg
[2024-06-11 14:06] VITALS: BP 152/92; TEMP 98.4; O2SAT 97
== END 2024-06-11 15:36 | disposition left against medical advice (07) ==
LOC: M ED 13:58
DX: Z53.21 Procedure and treatment not carried out due to patient leaving prior to being seen by health care provider (principal)